=== PATIENT | male | born 1935 | race Caucasian/White ===

== ENCOUNTER → 2016-04-09 | Outpatient (CLI) | payer OTHER ==
[~2016-04-09] MED LIST: AMLO2.5T PO; APIX1TAB PO; ASPCH81 PO; ATOR-24 PO; BROM0.07 OPL; CALC600T9 PO; CHOL100010 PO; COEN100C7 PO; CYAN1LOZ2 PO; FERROUS SULFATE PO; GARL400T4 PO; GLIP-199 PO; MISC1CAP7 PO; MULT-190 PO; MULT-506 PO; POLY335019 PO; PRED1SUS OPL; PREG100C PO; PREG1CAP70 PO; [UNRECOGNIZED DRUG - REMARK] PO; focus factor PO
--- NOTE | 2016-04-09 13:09 | DIAGNOSTIC IMAGING REPORT ---
TWO VIEW CHEST CLINICAL HISTORY: Bronchitis. FINDINGS: PA and lateral chest radiographs are compared to study dated 05/12/2015 and correlated with chest CT dated 01/13/2014. The heart is enlarged and there is atherosclerotic calcification of the thoracic aorta. The pulmonary vasculature is noncongested. Enlargement of the central pulmonary arteries suggests pulmonary artery hypertension. Emphysema and chronic interstitial thickening is similar to previous. Numerous calcified granulomas are again seen, and there are calcified mediastinal and hilar lymph nodes. There is no evidence of superimposed airspace consolidation or pleural effusion. Mild elevation of the right hemidiaphragm is similar to previous. There is no pneumothorax. The skeletal structures are osteopenic. Degenerative change is seen throughout the thoracic spine IMPRESSION: 1. Cardiomegaly and emphysema. There is no acute cardiopulmonary abnormality. 2. There is evidence of remote granulomatous infection, similar to prior examinations. Electronically signed by: Brian Dong M.D. 04/09/2016 1:07 PM Dictated Date/Time: 04/09/2016 1:05 PM
[2016-04-09 13:41] LABS: BASO % 0.2 %; BASO ABS # 0.01 K/uL (0-0.2); COMPLETE YES; EOS % 2.7 %; HEMATOCRIT 42.5 % (42-52); IG% 0.2 %; LYMPH % 17.1 %; LYMPH ABS # 0.95 K/uL (1.2-3.4); MEAN CELL VOLUME 98.6 fL (80-100); MEAN CORPUSCULAR HEMOGLOBIN 33.6 pg (25-34); MEAN CORPUSCULAR HGB CONC 34.1 g/dl (32-36); MEAN PLATELET VOLUME 11.1 fL (7.4-10.4); MONO % 7.9 %; NEUT % 71.9 %; PLATELET COUNT 115 K/uL (130-400); RED BLOOD COUNT 4.31 M/uL (4.7-6.1); WHITE BLOOD COUNT 5.55 K/uL (4.8-10.8)
[2016-04-09 13:48] LABS: BLOOD UREA NITROGEN 32 mg/dl (7-18); BUN/CREATININE RATIO 21.5 (10-20); CALCIUM 8.7 mg/dl (8.5-10.1); CARBON DIOXIDE 25 mmol/L (21-32); CHLORIDE 112 mmol/L (98-107); GLUCOSE 234 mg/dl (70-99); POTASSIUM 4.3 mmol/L (3.5-5.1); SODIUM 144 mmol/L (136-145)
[2016-04-09 14:06] LABS: ESTIMATED AVERAGE GLUCOSE 186 mg/dl; HA1C FLAG Normal (Normal)
--- NOTE | 2016-04-15 09:41 | CODING QUERY MEDICAL NECESSITY ---
SUPPORTING DIAGNOSIS NEEDED A supporting diagnosis is required for the test/procedure performed on this patient in order for us to be reimbursed by the patient's insurance. Please provide a supporting diagnosis for the following test/procedure listed below next to the test name along with your signature. *If there is no additional diagnosis for this patient that would support the following test/procedure please document that below next to the test/procedure. Test(s)/Procedure(s) that require a supporting diagnosis: * GLYCATED HEMOGLOBIN DIAGNOSIS: * DOS: 04/09/16 Provider Signature: Date: Thank you Cintia Dyer [employer] Information Management Once completed, please kindly fax back to [phone] For questions please call [phone]
== END | disposition home or self-care (01) ==
LOC: C.RADBC 11:23
PROVIDERS: ATTEND Internal Medicine Geriatric Medicine
DX: J40 Bronchitis, not specified as acute or chronic (principal); I12.9 Hypertensive chronic kidney disease with stage 1 through stage 4 chronic kidney disease, or unspecified chronic kidney disease; N18.3 Chronic kidney disease, stage 3 (moderate); E11.29 Type 2 diabetes mellitus with other diabetic kidney complication; E11.49 Type 2 diabetes mellitus with other diabetic neurological complication; E11.22 Type 2 diabetes mellitus with diabetic chronic kidney disease

== ENCOUNTER → 2016-06-09 | Day surgery (SDC) | payer OTHER ==
[2016-05-16 13:21] VITALS: Ht 186.7 cm; Wt 88.6 kg
[~2016-06-09] VITALS: Ht 186.7 cm; Wt 88.6 kg
[~2016-06-09] MED LIST changes: +500ML BSS 0.3ML EPI 1:1000PF IRRIG ONE; +ACETAMINOPHEN 325 MG TAB PO PRN; +AMVISC PLUS 0.8ML SYRINGE INT OCU ONE; -ASPCH81 PO; +ATROPINE SULFATE 0.1 MG/ML 5ML SYR IV PRN; +BRIMONIDINE TART 0.2% OP SOLN PER DROP CHARGE ONE; +BSS FLUSH ONE; +ENDOCOAT 0.85ML SYRINGE INT OCU ONE; +EpHEDrine SULFATE INJ 50 MG/ML AMP IV PRN; +EpINEphrine INJ 1MG/ML AMP 1 MG/ML AMP ONE; +LACTATED RINGER'S 1000ML 500 ML IV SCH; +LIDOCAINE 4% OP SOLN DROP CHARGE ONE; +LIDOCAINE 4% OP SOLN DROP CHARGE OPL SCH; +LIDOCAINE HCL 1% MPF 2 ML VIAL ONE; +MIDAZOLAM HCL 1 MG/ML 2ML VIAL ONE; +MOXIFLOXACIN OPH SOLN PER DROP CHARGE ONE; +POVIDONE-IODINE OP SOLN 30 ML BTL ONE; -PREG100C PO; +PROPARACAINE 0.5% OP SOLN PER DROP CHARGE OPL SCH; +TOBRAMYCIN/DEXAMETHASONE OPH OINT PER APPLN CHARGE ONE
[2016-06-09] MEDS: PHENYLEPHRINE HCL 2.5% OP SOLN PER DROP CHARGE OPL SCH ×2 (06:49→06:54)
[2016-06-09] MEDS: TROPICAMIDE 1% OP SOLN PER DROP CHARGE OPL SCH ×2 (06:50→06:55)
[2016-06-09] MEDS: CYCLOPENTOLATE HCL 1% OP SOLN PER DROP CHARGE OPL SCH ×2 (06:51→06:56)
[2016-06-09] MEDS: KETOROLAC 0.5% OP SOLN PER DROP CHARGE OPL SCH ×2 (06:52→06:57)
[2016-06-09] MEDS: MOXIFLOXACIN OPH SOLN PER DROP CHARGE OPL SCH ×2 (06:53→06:58)
--- NOTE | 2016-06-09 06:55 | History & Physical Bridge - [place] ---
H&P Re-Evaluation Bridge Note: I have examined the patient, reviewed the History & Physical and in the interval since the performance of the History & Physical I have noted the following changes of clinical significance: No changes noted
--- NOTE | 2016-06-09 07:30 | Discharge Instructions-SurgCtr ---
Discharge Instructions Date of Service Jun 09, 2016. Visit Reason for Visit: Cataract Left Eye Discharge Discharge Diagnosis / Problem: cataract left eye Discharge Goals Goal(s): Improve function Activity Recommendations Activity Limitations: per Instructions/Follow-up section Lifting Limitations: no more than 5 pounds Anesthesia . Post Anesthesia Instructions: If you have had General Anesthesia or IV Sedation: * Do not drive today. * Resume driving when surgeon permits. * Do not make important decisions or sign legal documents today. * Call surgeon for: 1. Temperature elevations greater than 101 degrees F. 2. Uncontrollable pain. 3. Excessive bleeding. 4. Persistent nausea and vomiting. 5. Medication intolerance (nausea, vomiting or rash). * For nausea and vomiting use only clear liquids such as: tea, soda, bouillon until nausea subsides, then gradually increase diet as tolerated. * If you have any concerns or questions, call your surgeon's office. If physician is unavailable and it is an emergency, call 911 or go to the nearest emergency room. . Instructions / Follow-Up Instructions / Follow-Up ACTIVITY RECOMMENDATIONS: * Light activities * You may walk outside, read, watch television. * Mild irritation and blurred vision are common for the first few days, redness around the white part of the eye is common. MEDICATIONS: Resume previous medications unless instructed otherwise by your surgeon. Eye drops (today and tomorrow): Vigamox - one drop in operative eye every 2 hours while awake Prednisolone 1% - one drop in operative eye every 2 hours while awake Prolensa - one drop operative eye 1 times daily SPECIAL CARE INSTRUCTIONS: * If any problems or concerns, please call Dr. Lopez's office at . * Keep plastic shield taped over eye to sleep at night. * Keep plastic shield taped over eye except to administer eye drops. * Keep plastic shield on until office visit the following day. FOLLOW UP VISIT: Follow-up with Dr. Lopez in the [place] office as scheduled. If not already scheduled, please call the office at . Diet Recommendations Home Diet: resume previous diet Procedures Procedures Performed: Left Cataract Phacoemulsification With Intraocular Lens Implant Pending Studies Studies pending at discharge: no Medical Emergencies . Who to Call and When: Medical Emergencies: If at any time you feel your situation is an emergency, please call 911 immediately. . Non-Emergent Contact Non-Emergency issues call your: Cost Coordinator . . "Provider Documentation" section prepared by Balbir Lopez.
--- NOTE | 2016-06-09 07:30 | [facility] Post Operative Brief Note ---
Immediate Operative Summary Operative Date Jun 09, 2016. Pre-Operative Diagnosis Cataract Left Eye Post-Operative Diagnosis Same Procedure(s) Performed Left Cataract Phacoemulsification With Intraocular Lens Implant Surgeon Dr. Lopez Knife Finisher Surgeon(s) None Estimated Blood Loss 0 Findings cataract left eye Specimens None Complication(s) None Disposition Recovery Room / PACU
--- NOTE | 2016-06-09 07:56 | OPERATIVE REPORT ---
DATE OF OPERATION: 06/09/2016 PREOPERATIVE DIAGNOSIS: Cataract, left eye. POSTOPERATIVE DIAGNOSIS: Cataract, left eye. PROCEDURE: Phacoemulsification cataract extraction with intraocular lens placement, left eye. SURGEON: Dr. Lopez. COMPLICATIONS: None. ESTIMATED BLOOD LOSS: None. ANESTHESIA: Topical with sedation. OPERATION AND FINDINGS: After informed consent was obtained in the holding area the patient was wheeled back to the Operating Room where cardiac monitoring leads and oxygen by nasal cannula was administered by Anesthesia. Gentle IV sedation was given, and the patient's left eye was prepped and draped in usual sterile fashion. A wire lid speculum was placed into the left eye and the operating microscope was swung into position. Using 0.12 forceps and a Supersharp blade a paracentesis port was made 3 o'clock hours away from the 3 o'clock position of patient's left eye. 1% non-preserved Lidocaine was then injected into the anterior chamber for anesthesia. A 2.2 mm keratotome blade was then used to make a shelved clear corneal incision at the 3 o'clock position of his left eye. Amvisc was injected into the anterior chamber and a cystotome and Utrata forceps were used to perform a curvilinear capsulorrhexis. BSS on a hydrodissection cannula was used to hydrodissect the lens nucleus away from the capsular bag. The phacoemulsification handpiece was then used in a stop and chop fashion to remove the lens nucleus. The irrigation and aspiration handpiece was then used to remove the residual cortical material. Amvisc was injected into the capsular bag and anterior chamber and a Bausch \T\ Lomb MX60 19.5 Diopter intraocular lens was injected into the capsular bag. Irrigation and aspiration handpiece was used to remove the residual viscoelastic material. The wounds were hydrated and noted to be watertight. The wire lid speculum was removed from the eye. Vigamox, Brimonidine, and TobraDex ointment were placed on the eye and it was shielded. It should be noted that EndoCoat was used throughout the case to protect the cornea endothelium. It was also noticed by anesthesia during the procedure that the patient had atrial fibrillation which was not listed in his health record. The patient was taken to the post-anesthesia care unit after surgery for an EKG and evaluation. DISPOSITION: The patient tolerated the procedure well and was wheeled to the post anesthesia care unit in stable condition. I attest to the content of the Intraoperative Record and any orders documented therein. Any exceptions are noted below. I attest to the content of the Intraoperative Record and any orders documented therein. Any exceptio ns are noted below.
--- NOTE | 2016-06-09 08:26 | Anesthesia Progress Nt - [facility] ---
Anesthesia Post Op Note Date & Time Jun 09, 2016 at 08:23 Vital Signs Pain Intensity: 0 Vital Signs Past 12 Hours Date Time Temp Pulse Resp B/P Pulse Ox O2 Delivery O2 Flow Rate FiO2 06/09/16 08:19 68 13 06/09/16 08:19 65 13 99 06/09/16 08:15 139/83 06/09/16 08:14 67 10 06/09/16 08:14 73 10 98 06/09/16 08:10 131/80 06/09/16 08:09 70 7 97 06/09/16 08:09 63 7 06/09/16 08:05 136/80 06/09/16 08:04 59 17 98 06/09/16 08:04 65 17 06/09/16 08:01 Room Air 06/09/16 08:00 135/87 06/09/16 07:59 66 20 06/09/16 07:59 64 20 100 06/09/16 07:57 147/94 06/09/16 07:55 138/89 06/09/16 07:54 64 14 100 06/09/16 07:54 59 14 06/09/16 07:50 138/76 06/09/16 07:49 55 13 06/09/16 07:49 60 13 100 06/09/16 07:45 141/84 06/09/16 07:44 65 14 06/09/16 07:44 64 14 100 06/09/16 07:40 140/84 06/09/16 07:39 59 14 06/09/16 07:39 60 14 100 06/09/16 07:35 149/90 06/09/16 07:34 63 16 06/09/16 07:34 69 16 145/90 100 06/09/16 07:30 36.9 67 16 145/90 99 Diffusion Mask 5 06/09/16 06:28 37.0 77 20 160/89 97 Room Air Notes Mental Status: alert / awake / arousable, participated in evaluation Pt Amnestic to Procedure: Yes Nausea / Vomiting: adequately controlled Pain: adequately controlled Airway Patency, RR, SpO2: stable & adequate BP & HR: stable & adequate Hydration State: stable & adequate Anesthetic Complications: no major complications apparent Pt noticed to have an irregular heart rate when put on the monitors in the operating room. It appeared to be atrial fibrillation, which was confirmed on a post-op 12 lead EKG. Pt was stable throughout the momo-operative period. Upon questioning the pt and post-procedure, pt was known to have a h/o atrial fibrillation. It was not documented on the pre-operative anesthesia evaluation or pre-operative phone call. Pt did take his eliquis yesterday. I discussed the matter with the pt and . Pt was otherwise stable for discharge.
[2016-06-09 08:50] VITALS: BP 152/88; PULSE 73; TEMP 36.7; O2SAT 98
== END | disposition home or self-care (01) ==
LOC: X.SURG 06:11
PROVIDERS: ATTEND Ophthalmology
DX: H25.12 Age-related nuclear cataract, left eye (principal); I48.91 Unspecified atrial fibrillation; I10 Essential (primary) hypertension; E11.9 Type 2 diabetes mellitus without complications; E03.9 Hypothyroidism, unspecified; Z85.51 Personal history of malignant neoplasm of bladder; Z87.891 Personal history of nicotine dependence; Z79.899 Other long term (current) drug therapy

== ENCOUNTER → 2016-06-23 | Day surgery (SDC) | payer OTHER ==
[2016-06-20 10:27] VITALS: Ht 186.7 cm; Wt 88.6 kg
[~2016-06-23] VITALS: Ht 186.7 cm; Wt 88.6 kg
[~2016-06-23] MED LIST changes: -LIDOCAINE 4% OP SOLN DROP CHARGE OPL SCH; +LIDOCAINE 4% OP SOLN DROP CHARGE OPR SCH; +ONDANSETRON INJ 2 MG/ML 2 ML VIAL IV PRN; -PROPARACAINE 0.5% OP SOLN PER DROP CHARGE OPL SCH; +PROPARACAINE 0.5% OP SOLN PER DROP CHARGE OPR SCH
[2016-06-23] MEDS: PHENYLEPHRINE HCL 2.5% OP SOLN PER DROP CHARGE OPR SCH ×2 (06:41→06:46)
[2016-06-23] MEDS: TROPICAMIDE 1% OP SOLN PER DROP CHARGE OPR SCH ×2 (06:42→06:47)
[2016-06-23] MEDS: CYCLOPENTOLATE HCL 1% OP SOLN PER DROP CHARGE OPR SCH ×2 (06:43→06:48)
[2016-06-23] MEDS: KETOROLAC 0.5% OP SOLN PER DROP CHARGE OPR SCH ×2 (06:44→06:49)
[2016-06-23] MEDS: MOXIFLOXACIN OPH SOLN PER DROP CHARGE OPR SCH ×2 (06:45→06:55)
--- NOTE | 2016-06-23 07:57 | [facility] Post Operative Brief Note ---
Immediate Operative Summary Operative Date Jun 23, 2016. Pre-Operative Diagnosis Cataract right eye Post-Operative Diagnosis same Procedure(s) Performed Right Cataract Phacoemulsification With Intraocular Lens Implant Surgeon Dr Lopez Sprayer Insecticide Surgeon(s) 0 Estimated Blood Loss 0 Findings cataract right eye Specimens 0 Complication(s) None Disposition Recovery Room / PACU
--- NOTE | 2016-06-23 07:57 | Discharge Instructions-SurgCtr ---
Discharge Instructions Date of Service Jun 23, 2016. Visit Reason for Visit: Cataract Right Eye Discharge Discharge Diagnosis / Problem: cataract right eye Discharge Goals Goal(s): Improve function Activity Recommendations Activity Limitations: per Instructions/Follow-up section Lifting Limitations: no more than 5 pounds Anesthesia . Post Anesthesia Instructions: If you have had General Anesthesia or IV Sedation: * Do not drive today. * Resume driving when surgeon permits. * Do not make important decisions or sign legal documents today. * Call surgeon for: 1. Temperature elevations greater than 101 degrees F. 2. Uncontrollable pain. 3. Excessive bleeding. 4. Persistent nausea and vomiting. 5. Medication intolerance (nausea, vomiting or rash). * For nausea and vomiting use only clear liquids such as: tea, soda, bouillon until nausea subsides, then gradually increase diet as tolerated. * If you have any concerns or questions, call your surgeon's office. If physician is unavailable and it is an emergency, call 911 or go to the nearest emergency room. . Instructions / Follow-Up Instructions / Follow-Up ACTIVITY RECOMMENDATIONS: * Light activities * You may walk outside, read, watch television. * Mild irritation and blurred vision are common for the first few days, redness around the white part of the eye is common. MEDICATIONS: Resume previous medications unless instructed otherwise by your surgeon. Eye drops (today and tomorrow): Vigamox - one drop in operative eye every 2 hours while awake Prednisolone 1% - one drop in operative eye every 2 hours while awake Prolensa - one drop operative eye 1 times daily SPECIAL CARE INSTRUCTIONS: * If any problems or concerns, please call Dr. Lopez's office at . * Keep plastic shield taped over eye to sleep at night. * Keep plastic shield taped over eye except to administer eye drops. * Keep plastic shield on until office visit the following day. FOLLOW UP VISIT: Follow-up with Dr. Lopez in the [place] office as scheduled. If not already scheduled, please call the office at . Diet Recommendations Home Diet: resume previous diet Procedures Procedures Performed: Right Cataract Phacoemulsification With Intraocular Lens Implant Pending Studies Studies pending at discharge: no Medical Emergencies . Who to Call and When: Medical Emergencies: If at any time you feel your situation is an emergency, please call 911 immediately. . Non-Emergent Contact Non-Emergency issues call your: Hospitality Coordinator . . "Provider Documentation" section prepared by Balbir Lopez.
[2016-06-23 08:08] VITALS: TEMP 37.1
[2016-06-23 08:25] VITALS: BP 150/80; PULSE 61; O2SAT 99
--- NOTE | 2016-06-23 08:31 | Anesthesia Progress Nt - [facility] ---
Anesthesia Post Op Note Date & Time Jun 23, 2016 at 08:30 Vital Signs Pain Intensity: 0 Vital Signs Past 12 Hours Date Time Temp Pulse Resp B/P Pulse Ox O2 Delivery O2 Flow Rate FiO2 06/23/16 08:25 61 20 150/80 99 Room Air 06/23/16 08:08 37.1 58 16 143/81 97 Room Air 06/23/16 06:34 36.4 70 16 172/83 97 Room Air Notes Mental Status: alert / awake / arousable, participated in evaluation Pt Amnestic to Procedure: Yes Nausea / Vomiting: adequately controlled Pain: adequately controlled Airway Patency, RR, SpO2: stable & adequate BP & HR: stable & adequate Hydration State: stable & adequate Anesthetic Complications: no major complications apparent
--- NOTE | 2016-06-23 09:01 | OPERATIVE REPORT ---
DATE OF OPERATION: 06/23/2016 PREOPERATIVE DIAGNOSIS: Cataract, right eye. POSTOPERATIVE DIAGNOSIS: Cataract, right eye. PROCEDURE: Phacoemulsification cataract extraction with intraocular lens placement, right eye. SURGEON: Dr. Lopez. COMPLICATIONS: None. ESTIMATED BLOOD LOSS: None. ANESTHESIA: Topical with sedation. DESCRIPTION OF PROCEDURE: After informed consent was obtained in the holding area the patient was wheeled back to the Operating Room where cardiac monitoring leads and oxygen by nasal cannula was administered by Anesthesia. Gentle IV sedation was given, and the patient's right eye was prepped and draped in usual sterile fashion. A wire lid speculum was placed into the right eye and the operating microscope was swung into position. Using 0.12 forceps and a Supersharp blade a paracentesis port was made 3 o'clock hours away from the 9 o'clock position of patient's right eye. 1% non-preserved Lidocaine was then injected into the anterior chamber for anesthesia. A 2.2 mm keratotome blade was then used to make a shelved clear corneal incision at the 9 o'clock position of his right eye. Amvisc was injected into the anterior chamber and a cystotome and Utrata forceps were used to perform a curvilinear capsulorrhexis. BSS on a hydrodissection cannula was used to hydrodissect the lens nucleus away from the capsular bag. The phacoemulsification handpiece was then used in a stop and chop fashion to remove the lens nucleus. The irrigation and aspiration handpiece was then used to remove the residual cortical material. Amvisc was injected into the capsular bag and anterior chamber and a Bausch \T\ Lomb MX60 20.0 Diopter intraocular lens was injected into the capsular bag. Irrigation and aspiration handpiece was used to remove the residual viscoelastic material. The wounds were hydrated and noted to be watertight. The wire lid speculum was removed from the eye. Vigamox, Brimonidine, and TobraDex ointment were placed on the eye and it was shielded. It should be noted that EndoCoat was used during the case to protect the cornea endothelium. DISPOSITION: The patient tolerated the procedure well and was wheeled to the post anesthesia care unit in stable condition. I attest to the content of the Intraoperative Record and any orders documented therein. Any exceptions are noted below. I attest to the content of the Intraoperative Record and any orders documented therein. Any exceptio ns are noted below.
== END | disposition home or self-care (01) ==
LOC: X.SURG 06:06
PROVIDERS: ATTEND Ophthalmology
DX: H25.11 Age-related nuclear cataract, right eye (principal); I10 Essential (primary) hypertension; E11.9 Type 2 diabetes mellitus without complications; Z85.51 Personal history of malignant neoplasm of bladder; Z87.891 Personal history of nicotine dependence

== ENCOUNTER → 2016-09-05 | Outpatient (CLI) | payer OTHER ==
[~2016-09-05] MED LIST changes: -500ML BSS 0.3ML EPI 1:1000PF IRRIG ONE; -ACETAMINOPHEN 325 MG TAB PO PRN; -AMVISC PLUS 0.8ML SYRINGE INT OCU ONE; -ATROPINE SULFATE 0.1 MG/ML 5ML SYR IV PRN; -BRIMONIDINE TART 0.2% OP SOLN PER DROP CHARGE ONE; -BSS FLUSH ONE; -ENDOCOAT 0.85ML SYRINGE INT OCU ONE; -EpHEDrine SULFATE INJ 50 MG/ML AMP IV PRN; -EpINEphrine INJ 1MG/ML AMP 1 MG/ML AMP ONE; -LACTATED RINGER'S 1000ML 500 ML IV SCH; -LIDOCAINE 4% OP SOLN DROP CHARGE ONE; -LIDOCAINE 4% OP SOLN DROP CHARGE OPR SCH; -LIDOCAINE HCL 1% MPF 2 ML VIAL ONE; -MIDAZOLAM HCL 1 MG/ML 2ML VIAL ONE; -MOXIFLOXACIN OPH SOLN PER DROP CHARGE ONE; -ONDANSETRON INJ 2 MG/ML 2 ML VIAL IV PRN; -POVIDONE-IODINE OP SOLN 30 ML BTL ONE; -PROPARACAINE 0.5% OP SOLN PER DROP CHARGE OPR SCH; -TOBRAMYCIN/DEXAMETHASONE OPH OINT PER APPLN CHARGE ONE
[2016-09-05 14:05] LABS: URINE APPEARANCE CLOUDY (CLEAR); URINE BILIRUBIN NEG (NEG); URINE COLOR YELLOW; URINE NITRITE NEG (NEG); URINE SPECIFIC GRAVITY 1.017 (1.000-1.030); UROBILINOGEN NEG (NEG)
[2016-09-05 14:09] LABS: MANUAL MICROSCOPIC REQUIRED? NO; REVIEW REQ? NO
== END | disposition home or self-care (01) ==
LOC: C.LABPBG 10:50
PROVIDERS: ATTEND Urology
DX: N39.0 Urinary tract infection, site not specified (principal)

== ENCOUNTER → 2016-10-07 | Outpatient (CLI) | payer OTHER ==
[2016-10-07 17:41] LABS: BASO % 0.3 %; BASO ABS # 0.02 K/uL (0-0.2); COMPLETE YES; EOS % 2.4 %; HEMATOCRIT 42.6 % (42-52); IG% 0.3 %; LYMPH % 15.9 %; LYMPH ABS # 0.92 K/uL (1.2-3.4); MEAN CELL VOLUME 99.5 fL (80-100); MEAN CORPUSCULAR HEMOGLOBIN 33.6 pg (25-34); MEAN CORPUSCULAR HGB CONC 33.8 g/dl (32-36); MEAN PLATELET VOLUME 10.8 fL (7.4-10.4); MONO % 8.7 %; NEUT % 72.4 %; PLATELET COUNT 114 K/uL (130-400); RED BLOOD COUNT 4.28 M/uL (4.7-6.1); WHITE BLOOD COUNT 5.78 K/uL (4.8-10.8)
[2016-10-07 18:01] LABS: BLOOD UREA NITROGEN 33 mg/dl (7-18); BUN/CREATININE RATIO 23.3 (10-20); CARBON DIOXIDE 24 mmol/L (21-32); CHLORIDE 114 mmol/L (98-107); GLUCOSE 174 mg/dl (70-99); POTASSIUM 3.7 mmol/L (3.5-5.1); SODIUM 144 mmol/L (136-145)
[2016-10-07 18:03] LABS: CHOLESTEROL 114 mg/dl (0-200); CHOLESTEROL/HDL RATIO 2.7; HDL CHOLESTEROL 43 mg/dl; LDL CHOLESTEROL CALCULATED 46 mg/dl; TRIGLYCERIDES 125 mg/dl (0-150); VERY LOW DENSITY LIPOPROT CALC 25 mg/dl
[2016-10-08 06:39] LABS: ESTIMATED AVERAGE GLUCOSE 192 mg/dl; HA1C FLAG Normal (Normal)
--- NOTE | 2016-10-15 06:51 | CODING QUERY MEDICAL NECESSITY ---
SUPPORTING DIAGNOSIS NEEDED A supporting diagnosis is required for the test/procedure performed on this patient in order for us to be reimbursed by the patient's insurance. Please provide a supporting diagnosis for the following test/procedure listed below next to the test name along with your signature. *If there is no additional diagnosis for this patient that would support the following test/procedure please document that below next to the test/procedure. Test(s)/Procedure(s) that require a supporting diagnosis: * VITAMIN B12 DIAGNOSIS: Provider Signature: Date: Thank you Sarah Graham [employer] Information Management Once completed, please kindly fax back to [phone] For questions please call [phone]
== END | disposition home or self-care (01) ==
LOC: C.LABPBG 14:47
PROVIDERS: ATTEND Internal Medicine Geriatric Medicine
DX: N18.3 Chronic kidney disease, stage 3 (moderate) (principal); G62.9 Polyneuropathy, unspecified; I12.9 Hypertensive chronic kidney disease with stage 1 through stage 4 chronic kidney disease, or unspecified chronic kidney disease; E11.29 Type 2 diabetes mellitus with other diabetic kidney complication; E11.22 Type 2 diabetes mellitus with diabetic chronic kidney disease; D64.9 Anemia, unspecified

== ENCOUNTER → 2017-04-21 | Outpatient (CLI) | payer OTHER ==
[2017-04-21 17:46] LABS: BASO % 0.6 %; BASO ABS # 0.04 K/uL (0-0.2); EOS % 2.2 %; EOS ABS # 0.14 K/uL (0-0.5); HEMATOCRIT 42.4 % (42-52); HEMOGLOBIN 14.5 g/dL (14.0-18.0); IG# 0.01 K/uL (0.00-0.02); LYMPH % 15.5 %; LYMPH ABS # 0.98 K/uL (1.2-3.4); MEAN CELL VOLUME 97.9 fL (80-100); MEAN CORPUSCULAR HEMOGLOBIN 33.5 pg (25-34); MEAN CORPUSCULAR HGB CONC 34.2 g/dl (32-36); MEAN PLATELET VOLUME 10.1 fL (7.4-10.4); MONO % 7.4 %; MONO ABS # 0.47 K/uL (0.11-0.59); NEUT % 74.1 %; NEUT ABS # 4.69 K/uL (1.4-6.5); PLATELET COUNT 123 K/uL (130-400); RED CELL DISTRIBUTION WIDTH CV 14.9 % (11.5-14.5); RED CELL DISTRIBUTION WIDTH SD 53.5 fL (36.4-46.3); WHITE BLOOD COUNT 6.33 K/uL (4.8-10.8)
[2017-04-21 18:53] LABS: ALBUMIN 3.9 gm/dl (3.4-5.0); ALT/SGPT 23 U/L (12-78); AST/SGOT 13 U/L (15-37); BLOOD UREA NITROGEN 30 mg/dl (7-18); CALCIUM 8.8 mg/dl (8.5-10.1); CARBON DIOXIDE 24 mmol/L (21-32); CREATININE 1.48 mg/dl (0.60-1.40); GLUCOSE 117 mg/dl (70-99); SODIUM 140 mmol/L (136-145)
[2017-04-21 19:05] LABS: ALKALINE PHOSPHATASE 75 U/L (45-117); TOTAL PROTEIN 7.6 gm/dl (6.4-8.2)
[2017-04-22 06:27] LABS: HEMOGLOBIN A1C 7.3 % (4.5-5.6)
== END | disposition home or self-care (01) ==
LOC: C.LABPBG 14:11
PROVIDERS: ATTEND Internal Medicine Geriatric Medicine
DX: G62.9 Polyneuropathy, unspecified (principal); I12.9 Hypertensive chronic kidney disease with stage 1 through stage 4 chronic kidney disease, or unspecified chronic kidney disease; E78.5 Hyperlipidemia, unspecified; D64.9 Anemia, unspecified; D47.2 Monoclonal gammopathy; I48.2 Chronic atrial fibrillation; N18.3 Chronic kidney disease, stage 3 (moderate)

== ENCOUNTER → 2017-04-27 | Outpatient (CLI) | payer OTHER | END | disposition home or self-care (01) | LOC: C.LABPBG 11:51 | PROVIDERS: ATTEND Internal Medicine Geriatric Medicine | DX: N39.0 Urinary tract infection, site not specified (principal) ==

== ENCOUNTER 2017-10-18 14:58 | Inpatient (IN) | payer OTHER ==
[~2017-10-18] VITALS: Ht 188 cm; Wt 89.5 kg
[2017-10-18] MEDS ORDERED: ALBUT/IPRATROP 3MG/0.5MG NEB 3 ML VIAL INH STA (15:19)
--- NOTE | 2017-10-18 15:21 | EMERGENCY ROOM VISIT NOTE ---
History Report prepared by Jose: Katelyn Ortiz Under the Supervision of: Dr. Lucian Drummond M.D. 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 Positive wet cough with clear discharge, chest pain, chills, rigors. Negative abdominal pain , bilateral leg swelling, recent antibiotic use, recent travel. He reports he has not checked his temperature at home and he has been eating drinking normally. Pt regularly takes Eliquis. 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 Negative bilateral leg swelling, recent antibiotic use, recent travel. Review of Systems See HPI for pertinent positives and negatives. A total of ten systems were reviewed and were otherwise negative. Past Medical & Surgical Medical Problems: (1) Afib (2) Anemia (3) Bladder cancer (4) MGUS (monoclonal gammopathy of unknown significance) (5) PNA (pneumonia) (6) sepsis from urinary source Family History Omitted secondary to age Social History Smoking Status: Never Smoker Marital Status: Occupation Status: retired Current/Historical Medications Scheduled Amlodipine Besylate (Norvasc), 2.5 MG PO QAM Apixaban (Eliquis), 2.5 MG PO BID Atorvastatin (Lipitor), 40 MG PO HS Calcium Carbonate-Vitamin D (Calcium + D), 1 TAB PO QAM Cholecalciferol (Vitamin D3), 1,000 INTER.UNIT PO DAILY Coenzyme Q10 (Ubidecarenone) (Coq10), 100 MG PO QAM Cyanocobalamin (Vitamin B12), 1 TAB PO DAILY Ferrous Sulfate (Ferrous Sulfate), 325 MG PO QAM Garlic (Garlic), 2,000 MG PO DAILY Glipizide (Glipizide ER), 10 MG PO BID Misc Natural Products (Cosamin Asu Advanced Form), 1 CAP PO QAM Multivitamin (Multivitamin), 1 TAB PO QAM Ocuvite Preservision (Ocuvite Preservision), 1 TAB PO QAM Pregabalin (Lyrica), 150 MG PO QAM Sitagliptin Phosphate (Januvia), 50 MG PO DAILY [Focus Factor], 1 DOSE PO QAM [Selenium Prostate], 1 DOSE PO QAM Scheduled PRN Polyethylene Glycol 3350 (Miralax), 17 GM PO DAILY PRN for Constipation Allergies Coded Allergies: No Known Allergies (Unverified , 06/23/16) Physical Exam Vital Signs Date Time Temp Pulse Resp B/P (MAP) Pulse Ox O2 Delivery O2 Flow Rate FiO2 10/18/17 16:36 102 24 163/96 10/18/17 16:15 97 Room Air 10/18/17 16:07 101 10/18/17 15:11 92 Room Air 10/18/17 15:04 37.5 121 24 172/91 92 Room Air Physical Exam GENERAL: Awake, alert, well-appearing, NAD. Wearing glasses. HENT: Normocephalic, atraumatic. EYES: Normal conjunctiva. Sclera non-icteric. PERRL. No anisocoria. NECK: Supple. No nuchal rigidity. FROM. RESPIRATORY: CTAB, no rhonchi, wheezing. Trace crackles. CARDIAC: Tachy and irregular, no MRG ABDOMEN: Soft, NTND, BS+ MSK: No chest wall TTP, no LE edema. No calf pain. NEURO: GCS 15, CN 2-12 intact, moves all 4s on command SKIN: No rash or jaundice noted. Medical Decision & Procedures ER Provider Diagnostic Interpretation: Radiology results as stated below per my review and radiologist interpretation: CHEST ONE VIEW PORTABLE CLINICAL HISTORY: Chest pain. COMPARISON STUDY: Chest radiograph April 09, 2016. FINDINGS: Innumerable upper lobe calcified nodules are unchanged. No pneumothorax or pleural effusion is noted. There is no evidence for pulmonary edema. Moderate cardiomegaly is noted. There is possible mild opacity within the right lung base. IMPRESSION: 1. Possible mild opacity medial right lung base. This is likely artifactual or reflects atelectasis. However, pneumonia could appear similar. Radiographic follow-up is recommended. 2. Moderate cardiomegaly without evidence for pulmonary edema. Electronically signed by: Den Lanza M.D. 10/18/2017 3:43 PM Laboratory Results 10/18/17 16:01 Red Blood Count 4.08, Mean Corpuscular Volume 98.5, Mean Corpuscular Hemoglobin 34.1, Mean Corpuscular Hemoglobin Concent 34.6, Mean Platelet Volume 10.3, Neutrophils (%) (Auto) 90.4, Lymphocytes (%) (Auto) 3.7, Monocytes (%) (Auto) 4.9, Eosinophils (%) (Auto) 0.7, Basophils (%) (Auto) 0.1, Neutrophils # (Auto) 9.69, Lymphocytes # (Auto) 0.40, Monocytes # (Auto) 0.53, Eosinophils # (Auto) 0.07, Basophils # (Auto) 0.01 10/18/17 16:01 Test 10/18/17 16:01 White Blood Count 10.72 K/uL (4.8-10.8) Red Blood Count 4.08 M/uL (4.7-6.1) Hemoglobin 13.9 g/dL (14.0-18.0) Hematocrit 40.2 % (42-52) Mean Corpuscular Volume 98.5 fL (80-100) Mean Corpuscular Hemoglobin 34.1 pg (25-34) Mean Corpuscular Hemoglobin Concent 34.6 g/dl (32-36) Platelet Count 111 K/uL (130-400) Mean Platelet Volume 10.3 fL (7.4-10.4) Neutrophils (%) (Auto) 90.4 % Lymphocytes (%) (Auto) 3.7 % Monocytes (%) (Auto) 4.9 % Eosinophils (%) (Auto) 0.7 % Basophils (%) (Auto) 0.1 % Neutrophils # (Auto) 9.69 K/uL (1.4-6.5) Lymphocytes # (Auto) 0.40 K/uL (1.2-3.4) Monocytes # (Auto) 0.53 K/uL (0.11-0.59) Eosinophils # (Auto) 0.07 K/uL (0-0.5) Basophils # (Auto) 0.01 K/uL (0-0.2) RDW Standard Deviation 50.8 fL (36.4-46.3) RDW Coefficient of Variation 14.4 % (11.5-14.5) Immature Granulocyte % (Auto) 0.2 % Immature Granulocyte # (Auto) 0.02 K/uL (0.00-0.02) Anion Gap 9.0 mmol/L (3-11) Estimated GFR () 49.9 Estimated GFR (Non- 43.1 BUN/Creatinine Ratio 22.0 (10-20) Calcium Level 8.7 mg/dl (8.5-10.1) Magnesium Level 1.9 mg/dl (1.8-2.4) Total Bilirubin 0.6 mg/dl (0.2-1) Direct Bilirubin 0.2 mg/dl (0-0.2) Aspartate Amino Transf (AST/SGOT) 16 U/L (15-37) Alanine Aminotransferase (ALT/SGPT) 25 U/L (12-78) Alkaline Phosphatase 81 U/L (45-117) Total Protein 7.3 gm/dl (6.4-8.2) Albumin 3.7 gm/dl (3.4-5.0) Lipase 231 U/L (73-393) Laboratory results reviewed by me Medications Administered Medications (Trade) Dose Ordered Sig/Arnold Route Start Time Stop Time Status Last Admin Dose Admin Albuterol/ Ipratropium (Duoneb) 3 ml ONE STAT INH 10/18/17 15:19 10/18/17 15:20 DC 10/18/17 15:43 3 ML Benzonatate (Tessalon Perles Cap) 100 mg NOW ONCE PO 10/18/17 15:30 10/18/17 15:31 DC 10/18/17 15:43 100 MG Acetaminophen (Tylenol Tab) 650 mg NOW STAT PO 10/18/17 15:25 10/18/17 15:26 DC 10/18/17 15:43 650 MG Sodium Chloride 1,000 ml @ 500 mls/hr Q2H STAT IV 10/18/17 15:25 10/18/17 17:24 DC 10/18/17 16:24 500 MLS/HR Ceftriaxone Sodium (Rocephin Inj) 1 gm NOW STAT IV 10/18/17 15:59 10/18/17 16:00 DC 10/18/17 16:24 1 GM Azithromycin (Zithromax Tab) 500 mg NOW ONCE PO 10/18/17 16:00 10/18/17 16:01 DC 10/18/17 16:24 500 MG ECG Per My Interpretation Indication: chest pain Rate (beats per minute): 111 Rhythm: atrial fibrillation (with RVR) Findings: PVC (single PVC noted), other (normal axis) ED Course 1514: The patient was evaluated in room A9. A complete history and physical exam was performed. 1657: Discussed the patient's case with Dr. Corbin, [facility] Hospitalist. The patient will be evaluated for further treatment and disposition. 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 Positive wet cough with clear discharge, chills, rigors. Negative chest pain, abdominal pain , bilateral leg swelling, recent antibiotic use, recent travel. Nursing notes reviewed. Ancillary studies and prior records reviewed. Differential diagnosis: Etiologies such as cardiac ischemia, aortic dissection, pulmonary embolism, pneumonia, pneumothorax, musculoskeletal, infections, pericarditis, myocarditis , esophageal rupture, gastrointestinal, as well as others were entertained. Patient was seen and evaluated the bedside. Patient has had persistent flulike symptoms with associated productive cough for slightly greater than 1 week's time. The patient is complained of feeling worse over the last several days. The patient does have a noted history of A. fib and states that he only takes blood thinning medication but nothing for rate control. Patient does have a low -grade temperature at 99 5 oral. The patient does have a very poor sounding cough and crackles in his chest. Patient did have blood work completed with EKG, troponin, chest x-ray. Patient' s chest x-ray shows a questionable right lower lobe opacity. Given the patient' s chronicity of symptoms and cough with associated fever believe he is suitable for treatment with antibiotics. The patient was given Rocephin and azithromycin. Patient's EKG did show A. fib with RVR. I believe this is more dehydration, temperature, and infectious etiology and not so much a problem with the actual rate. Patient was given fluids. Patient does have a normal white blood cell count. Patient does have known CKD. His BUN is elevated. Patient does have a curb 65 score of 2. Given his increased risk as well as his history of A. fib I believe he would benefit from further evaluation and treatment. I did speak with the on-call medicine service who agreed to further evaluate treat the patient. Medication Reconcilliation Current Medication List: was personally reviewed by me Blood Pressure Screening Patient's blood pressure: Elevated blood pressure Consults Time Called: 1650 Consulting Physician: Dr. Corbin, [facility] Hospitalist Returned Call: 1657 Discussed the patient's case with Dr. Corbin [facility] Hospitalist. The patient will be evaluated for further treatment and disposition. Impression Primary Impression: Right lower lobe pneumonia Additional Impressions: Atrial fibrillation with RVR CKD (chronic kidney disease) stage 3, GFR 30-59 ml/min Scribe Attestation The scribe's documentation has been prepared under my direction and personally reviewed by me in its entirety. I confirm that the note above accurately reflects all work, treatment, procedures, and medical decision making performed by me. Departure Information Dispostion Being Evaluated By Hospitalist (Dr. Corbin, [facility] Hospitalist) Referrals Silvino White M.D. (PCP) Patient Instructions My [facility] Problem Qualifiers Primary Impression: Right lower lobe pneumonia Pneumonia type: due to unspecified organism Qualified Codes: J18.1 - Lobar pneumonia, unspecified organism
[2017-10-18] MEDS ORDERED: ACETAMINOPHEN 325 MG TAB PO STA (15:25)
[2017-10-18] MEDS ORDERED: BENZONATATE 100MG CAP PO ONE (15:30)
[2017-10-18] MEDS: SODIUM CHLORIDE 0.9% 1000ML 1,000 ML IV STA ×2 (15:43→16:24)
--- NOTE | 2017-10-18 15:44 | DIAGNOSTIC IMAGING REPORT ---
CHEST ONE VIEW PORTABLE CLINICAL HISTORY: Chest pain. COMPARISON STUDY: Chest radiograph April 09, 2016. FINDINGS: Innumerable upper lobe calcified nodules are unchanged. No pneumothorax or pleural effusion is noted. There is no evidence for pulmonary edema. Moderate cardiomegaly is noted. There is possible mild opacity within the right lung base. IMPRESSION: 1. Possible mild opacity medial right lung base. This is likely artifactual or reflects atelectasis. However, pneumonia could appear similar. Radiographic follow-up is recommended. 2. Moderate cardiomegaly without evidence for pulmonary edema. Electronically signed by: Den Lanza M.D. 10/18/2017 3:43 PM Dictated Date/Time: 10/18/2017 3:40 PM
[2017-10-18] MEDS ORDERED: SITA50TA PO (15:54)
[2017-10-18] MEDS ORDERED: AMLO2.5T PO (15:54)
[2017-10-18] MEDS ORDERED: LPT40 PO (15:54)
[2017-10-18] MEDS ORDERED: GLCSR10 PO (15:54)
[2017-10-18] MEDS ORDERED: [UNRECOGNIZED DRUG - CODE] PO (15:59)
[2017-10-18] MEDS ORDERED: CHOL1000 PO (15:59)
[2017-10-18] MEDS ORDERED: CEFTRIAXONE SOD INJ 1 GM ADDVIAL IV STA (15:59)
[2017-10-18] MEDS ORDERED: AZITHROMYCIN 250 MG TAB PO ONE (16:00)
[2017-10-18] MEDS ORDERED: CYAN100020 PO (16:03)
[2017-10-18] MEDS ORDERED: FERR325T5 PO (16:03)
[2017-10-18] MEDS ORDERED: [UNRECOGNIZED DRUG - OTHER] PO (16:03)
[2017-10-18] MEDS ORDERED: Focus Factor PO (16:03)
[2017-10-18 16:22] LABS: BASO % 0.1 %; BASO ABS # 0.01 K/uL (0-0.2); EOS % 0.7 %; EOS ABS # 0.07 K/uL (0-0.5); HEMATOCRIT 40.2 % (42-52); HEMOGLOBIN 13.9 g/dL (14.0-18.0); IG# 0.02 K/uL (0.00-0.02); LYMPH % 3.7 %; MEAN CELL VOLUME 98.5 fL (80-100); MEAN CORPUSCULAR HEMOGLOBIN 34.1 pg (25-34); MEAN CORPUSCULAR HGB CONC 34.6 g/dl (32-36); MEAN PLATELET VOLUME 10.3 fL (7.4-10.4); MONO % 4.9 %; MONO ABS # 0.53 K/uL (0.11-0.59); NEUT % 90.4 %; NEUT ABS # 9.69 K/uL (1.4-6.5); PLATELET COUNT 111 K/uL (130-400); RED CELL DISTRIBUTION WIDTH CV 14.4 % (11.5-14.5); RED CELL DISTRIBUTION WIDTH SD 50.8 fL (36.4-46.3); WHITE BLOOD COUNT 10.72 K/uL (4.8-10.8)
[2017-10-18 16:45] LABS: ALBUMIN 3.7 gm/dl (3.4-5.0); ALKALINE PHOSPHATASE 81 U/L (45-117); ALT/SGPT 25 U/L (12-78); AST/SGOT 16 U/L (15-37); BLOOD UREA NITROGEN 33 mg/dl (7-18); CALCIUM 8.7 mg/dl (8.5-10.1); CARBON DIOXIDE 20 mmol/L (21-32); CREATININE 1.49 mg/dl (0.60-1.40); GLUCOSE 294 mg/dl (70-99); LIPASE 231 U/L (73-393); POTASSIUM 3.8 mmol/L (3.5-5.1); SODIUM 138 mmol/L (136-145); TOTAL PROTEIN 7.3 gm/dl (6.4-8.2)
[2017-10-18] MEDS ORDERED: GLUCOSE 40% GEL 15 GM TUBE PO PRN (17:30)
[2017-10-18] MEDS ORDERED: MAGNESIUM HYDROXIDE SUSP 30 ML UDC PO PRN (17:30)
[2017-10-18] MEDS ORDERED: ONDANSETRON INJ 2 MG/ML 2 ML VIAL IV PRN (17:30)
[2017-10-18] MEDS ORDERED: ACETAMINOPHEN 325 MG TAB PO PRN (17:30)
[2017-10-18] MEDS ORDERED: POLYETHYLENE (MIRALAX) 17 GM PACK PO PRN (17:30)
[2017-10-18] MEDS ORDERED: GLUCAGON FOR INJ 1 MG VIAL SQ PRN (17:30)
[2017-10-18] MEDS ORDERED: GLUCOSE 10 TABS/TUBE PO PRN (17:30)
[2017-10-18] MEDS ORDERED: CARBOHYDRATES FOR HYPOGLYCEMIA PO PRN (17:30)
[2017-10-18] MEDS ORDERED: DEXTROSE 50% 50 ML SYR IV PRN (17:30)
--- NOTE | 2017-10-18 17:41 | History and Physical ---
History & Physical Date & Time of Service: Oct 18, 2017 at 17:33 Chief Complaint: Shakes,Cough,Chills Primary Care Physician: Silvino White M.D. History of Present Illness Source: patient 82 y/o M c/o cough. Pt states he has had an ongoing cough for about the last 1- 1.5 weeks. It is non-productive in nature. He has not sought care for this prior to today. He was at a family green party and it was noted that his cough was getting worse, so they came to the ED. Pt states he felt hot but had not taken a temp. No one else is sick. Pt denies SOB, chest pain, abd pain, n/v/c/d, LE pain or swelling. He has been eating without issue. Past Medical/Surgical History Medical Problems: (1) Afib (2) Anemia (3) Bladder cancer, s/p bladder removal, not in active tx (4) MGUS (monoclonal gammopathy of unknown significance) Iron deficiency Peripheral neuropathy Hyperlipidemia Family History Family history was reviewed; no changes noted. Neg for ID Social History Smoking Status: Never Smoker Alcohol Use: 1-2 beers per night most nights, no issues on days without alcohol Drug Use: none Marital Status: Housing status: lives with family Occupational Status: retired Immunizations History of Influenza Vaccine: Yes Influenza Vaccine Date: Dec 20, 2009 History of Tetanus Vaccine?: Yes History of Pneumococcal: Yes History of Hepatitis B Vaccine: Unknown Allergies Coded Allergies: No Known Allergies (Unverified , 06/23/16) Home Medications Scheduled Amlodipine Besylate (Norvasc), 2.5 MG PO QAM Apixaban (Eliquis), 2.5 MG PO BID Atorvastatin (Lipitor), 40 MG PO HS Calcium Carbonate-Vitamin D (Calcium + D), 1 TAB PO QAM Cholecalciferol (Vitamin D3), 1,000 INTER.UNIT PO DAILY Coenzyme Q10 (Ubidecarenone) (Coq10), 100 MG PO QAM Cyanocobalamin (Vitamin B12), 1 TAB PO DAILY Ferrous Sulfate (Ferrous Sulfate), 325 MG PO QAM Garlic (Garlic), 2,000 MG PO DAILY Glipizide (Glipizide ER), 10 MG PO BID Misc Natural Products (Cosamin Asu Advanced Form), 1 CAP PO QAM Multivitamin (Multivitamin), 1 TAB PO QAM Ocuvite Preservision (Ocuvite Preservision), 1 TAB PO QAM Pregabalin (Lyrica), 150 MG PO QAM Sitagliptin Phosphate (Januvia), 50 MG PO DAILY [Focus Factor], 1 DOSE PO QAM [Selenium Prostate], 1 DOSE PO QAM Scheduled PRN Polyethylene Glycol 3350 (Miralax), 17 GM PO DAILY PRN for Constipation Review of Systems Pertinent positives and negatives reviewed in HPI--all others negative Physical Exam Vital Signs Date Time Temp Pulse Resp B/P (MAP) Pulse Ox O2 Delivery O2 Flow Rate FiO2 10/18/17 16:36 102 24 163/96 10/18/17 16:15 97 Room Air 10/18/17 16:07 101 10/18/17 15:11 92 Room Air 10/18/17 15:04 37.5 121 24 172/91 92 Room Air General Appearance: WD/WN, no apparent distress Head: normocephalic, atraumatic Eyes: normal inspection, sclerae normal Respiratory/Chest: no respiratory distress, + crackles (R base) Cardiovascular: regular rate, rhythm, no edema Abdomen/GI: non tender, soft Extremities/Musculoskelatal: no calf tenderness, no pedal edema Neurologic/Psych: alert, normal mood/affect, oriented x 3 Skin: normal color, warm/dry Diagnostics Laboratory Results Results Past 24 Hours Test 10/18/17 16:01 Range/Units White Blood Count 10.72 4.8-10.8 K/uL Red Blood Count 4.08 4.7-6.1 M/uL Hemoglobin 13.9 14.0-18.0 g/dL Hematocrit 40.2 42-52 % Mean Corpuscular Volume 98.5 80-100 fL Mean Corpuscular Hemoglobin 34.1 25-34 pg Mean Corpuscular Hemoglobin Concent 34.6 32-36 g/dl Platelet Count 111 130-400 K/uL Mean Platelet Volume 10.3 7.4-10.4 fL Neutrophils (%) (Auto) 90.4 % Lymphocytes (%) (Auto) 3.7 % Monocytes (%) (Auto) 4.9 % Eosinophils (%) (Auto) 0.7 % Basophils (%) (Auto) 0.1 % Neutrophils # (Auto) 9.69 1.4-6.5 K/uL Lymphocytes # (Auto) 0.40 1.2-3.4 K/uL Monocytes # (Auto) 0.53 0.11-0.59 K/uL Eosinophils # (Auto) 0.07 0-0.5 K/uL Basophils # (Auto) 0.01 0-0.2 K/uL RDW Standard Deviation 50.8 36.4-46.3 fL RDW Coefficient of Variation 14.4 11.5-14.5 % Immature Granulocyte % (Auto) 0.2 % Immature Granulocyte # (Auto) 0.02 0.00-0.02 K/uL Sodium Level 138 136-145 mmol/L Potassium Level 3.8 3.5-5.1 mmol/L Chloride Level 109 98-107 mmol/L Carbon Dioxide Level 20 21-32 mmol/L Anion Gap 9.0 3-11 mmol/L Blood Urea Nitrogen 33 7-18 mg/dl Creatinine 1.49 0.60-1.40 mg/dl Estimated GFR () 49.9 Estimated GFR (Non- 43.1 BUN/Creatinine Ratio 22.0 10-20 Random Glucose 294 70-99 mg/dl Calcium Level 8.7 8.5-10.1 mg/dl Magnesium Level 1.9 1.8-2.4 mg/dl Total Bilirubin 0.6 0.2-1 mg/dl Direct Bilirubin 0.2 0-0.2 mg/dl Aspartate Amino Transf (AST/SGOT) 16 15-37 U/L Alanine Aminotransferase (ALT/SGPT) 25 12-78 U/L Alkaline Phosphatase 81 45-117 U/L Total Protein 7.3 6.4-8.2 gm/dl Albumin 3.7 3.4-5.0 gm/dl Lipase 231 73-393 U/L Diagnostic Radiology CXR: RLL PNA EKG Afib, seen prior Impression Assessment and Plan 82 y/o M who was admitted on 10/18 with PNA PNA: noted on CXR CURB score of 2 Rocephin/azithro started in the ED, will continue WBC WNL Monitor Afib: stable, continue home meds Elevated cr: baseline is 1.4-1.6, monitor with gentle IVF DM: BS elevated in the ED, monitor on PO home regimen with SSI PRN A1c 7.3 04/2017, repeat pending Hyperlipidemia: continue home meds Peripheral neuropathy: continue lyrica Bladder ca: s/p bladder removal, no active tx Stoma in place and care as at home Other: Full code although states no prolonged mechanical life support or feeding tubes, is present and agrees Eliquis for DVT proph DM diet Resuscitation Status VTE Prophylaxis Will order VTE Prophylaxis: Yes Additional Copies To Silvino White M.D.
[2017-10-18] MEDS ORDERED: PATIENT'S HEIGHT AND/OR WEIGHT NEEDED SCH (19:30)
[2017-10-18] MEDS ORDERED: SODIUM CHLORIDE 0.9% 1000ML 1,000 ML IV SCH (19:30)
[2017-10-18] MEDS: INSULIN ASPART 100 UNITS/ML 3 ML PEN SC SCH (20:54)
[2017-10-18] MEDS ORDERED: ATORVASTATIN 40 MG TAB PO SCH (21:00)
[2017-10-18] MEDS: APIXABAN 2.5 MG TAB PO SCH (21:06)
[2017-10-18 21:25] VITALS: BP 150/81; PULSE 93; TEMP 37.1; O2SAT 97; Ht 188 cm; Wt 89.5 kg
[2017-10-18 22:42] VITALS: BP 139/76; PULSE 81; TEMP 37.7; O2SAT 95
[2017-10-19 03:43] VITALS: TEMP 36.9
[2017-10-19 05:58] LABS: HEMATOCRIT 36.1 % (42-52); MEAN CELL VOLUME 98.6 fL (80-100); MEAN CORPUSCULAR HEMOGLOBIN 32.8 pg (25-34); MEAN CORPUSCULAR HGB CONC 33.2 g/dl (32-36); MEAN PLATELET VOLUME 10.4 fL (7.4-10.4); PLATELET COUNT 100 K/uL (130-400); RED CELL DISTRIBUTION WIDTH CV 14.8 % (11.5-14.5); RED CELL DISTRIBUTION WIDTH SD 52.4 fL (36.4-46.3); WHITE BLOOD COUNT 10.45 K/uL (4.8-10.8)
[2017-10-19 06:35] LABS: CALCIUM 8.2 mg/dl (8.5-10.1); CREATININE 1.37 mg/dl (0.60-1.40); POTASSIUM 3.6 mmol/L (3.5-5.1)
[2017-10-19 07:19] LABS: HEMOGLOBIN A1C 7.8 % (4.5-5.6)
[2017-10-19 07:38] VITALS: BP 132/76; PULSE 75; TEMP 37; O2SAT 94
[2017-10-19] MEDS ORDERED: FOCUS FACTOR PO SCH (08:00)
[2017-10-19] MEDS ORDERED: CYANOCOBALAMIN 100 MCG TAB (VIT B-12) PO SCH (08:00)
[2017-10-19] MEDS ORDERED: PREGABALIN 150 MG CAP PO SCH (08:00)
[2017-10-19] MEDS ORDERED: NON-FORMULARY MEDICATION (Coenzyme Q10 (Ubidecarenone) (Coq10) 100 MG) PO SCH (08:00)
[2017-10-19] MEDS ORDERED: NATURAL PRODUCTS PO SCH (08:00)
[2017-10-19] MEDS ORDERED: CHOLECALCIFEROL 1000 INTER.UNIT TAB PO SCH (08:00)
[2017-10-19] MEDS ORDERED: GARLIC 2000 MG PO SCH (08:00)
[2017-10-19] MEDS ORDERED: AMLODIPINE BESYLATE 5 MG TAB PO SCH (08:00)
[2017-10-19] MEDS ORDERED: MULTIVITAMIN TAB PO SCH (08:00)
[2017-10-19] MEDS ORDERED: CYANOCOBALAMIN 500 MCG TAB (VIT B-12) PO SCH (08:00)
[2017-10-19] MEDS ORDERED: CEROVITE ADV FORMULA TAB PO SCH (08:00)
[2017-10-19] MEDS ORDERED: SITAGLIPTIN 25 MG TAB PO SCH (08:00)
[2017-10-19] MEDS ORDERED: FERROUS SULFATE 325 MG TAB PO SCH (08:00)
[2017-10-19] MEDS ORDERED: [UNRECOGNIZED DRUG - OTHER] PO SCH (08:00)
[2017-10-19] MEDS ORDERED: CALCIUM 600MG + VIT D 400 IU TAB PO SCH (08:00)
[2017-10-19] MEDS: APIXABAN 2.5 MG TAB PO SCH (08:09)
[2017-10-19] MEDS ORDERED: CEFD300C3 PO (08:13)
[2017-10-19] MEDS ORDERED: AZIT500T26 PO (08:13)
--- NOTE | 2017-10-19 08:16 | Discharge Instructions ---
Discharge Instructions Date of Service Oct 19, 2017. Admission Reason for Admission: PNA Discharge Discharge Diagnosis / Problem: community acquired pneumonia Discharge Goals Goal(s): Improve function, Improve disease control, Diagnostic testing (repeat CXR in 6 weeks) Activity Recommendations Activity Limitations: resume your previous activity . Instructions / Follow-Up Instructions / Follow-Up Medications: - ZITHROMAX: 500mg tablet daily x 4 more days - CEFDINIR: 300mg capsule twice a day x 4 more days Community Acquired Pneumonia evidence of infiltrate in the right lower lobe on CXR, coupled with cough and low grade temperature will treat with antibiotics for a total of 5 days follow up in one week with Dr. White should get a repeat CXR in 6 weeks Current Hospital Diet Patient's current hospital diet: Diabetes Type 2 Diet Discharge Diet Recommended Diet: Diabetes Type 2 Diet Pending Studies Studies pending at discharge: no Laboratory Results Hemoglobin A1c Test 10/19/17 05:28 Range/Units Estimated Average Glucose 177 mg/dl Hemoglobin A1c 7.8 H 4.5-5.6 % Medical Emergencies . Who to Call and When: Medical Emergencies: If at any time you feel your situation is an emergency, please call 911 immediately. . Non-Emergent Contact Non-Emergency issues call your: Primary Care Provider Call Non-Emergent contact if: you have a fever, you have any medication questions if cough getting worse, if you are feeling worse instead of getting better . . "Provider Documentation" section prepared by Ted Barbosa. . [place] Drug Monitoring Program Search Results: no issues identified
[2017-10-19] MEDS: INSULIN ASPART 100 UNITS/ML 3 ML PEN SC SCH (08:29)
[2017-10-19] MEDS ORDERED: AZITHROMYCIN IV 500 MG in DEXTROSE 5% 250ML 250 ML IV SCH (09:00)
[2017-10-19 11:22] VITALS: BP 132/76; PULSE 75; TEMP 37; O2SAT 94
--- NOTE | 2017-10-19 11:41 | Discharge Summary ---
Discharge Summary Date of Service Oct 19, 2017. Discharge Summary Admission Date: Oct 18, 2017 at 17:33 Discharge Date: Oct 19, 2017 Discharge Disposition: Home Principal Diagnosis: Community acquired pneumonia Problems/Secondary Diagnoses: Mild TRAVIS Chronic atrial fibrillation Dyslipidemia Neuropathy, peripheral Immunizations: Have You Had Influenza Vaccine: Yes Influenza Vaccine Date: Dec 20, 2009 History of Tetanus Vaccine?: Yes History of Pneumococcal: Yes History of Hepatitis B Vaccine: Unknown Procedures: none Consultations: none Medication Reconciliation New Medications: Azithromycin (Zithromax) 500 Mg Tab 500 MG PO DAILY, #4 TAB Cefdinir (Cefdinir) 300 Mg Cap 300 MG PO Q12 for 4 Days, #8 CAP 0 Refills Continued Medications: Amlodipine Besylate (Norvasc) 2.5 Mg Tab 2.5 MG PO QAM Apixaban (Eliquis) 2.5 Mg Tab 2.5 MG PO BID, TAB Atorvastatin (Lipitor) 40 Mg Tab 40 MG PO HS Calcium Carbonate-Vitamin D (Calcium + D) 1 Tab Tab 1 TAB PO QAM Cholecalciferol (Vitamin D3) 1,000 Unit Tab 1000 INTER.UNIT PO DAILY, TAB Coenzyme Q10 (Ubidecarenone) (Coq10) 100 Mg Cap 100 MG PO QAM Cyanocobalamin (Vitamin B12) Unknown Strength Tab 1 TAB PO DAILY Ferrous Sulfate (Ferrous Sulfate) 325 Mg Tab 325 MG PO QAM Garlic (Garlic) 2,000 Mg Tab 2000 MG PO DAILY Glipizide (Glipizide ER) 10 Mg Tabcr 10 MG PO BID Misc Natural Products (Cosamin Asu Advanced Form) 1 Cap Cap 1 CAP PO QAM Multivitamin (Multivitamin) Tab 1 TAB PO QAM Ocuvite Preservision (Ocuvite Preservision) 1 Tab Tab 1 TAB PO QAM, TAB Polyethylene Glycol 3350 (Miralax) 1 Pow Pow 17 GM PO DAILY PRN for Constipation, GM Pregabalin (Lyrica) 150 Mg Cap 150 MG PO QAM, CAP Sitagliptin Phosphate (Januvia) 50 Mg Tab 50 MG PO DAILY [Focus Factor] () 1 DOSE PO QAM [Selenium Prostate] () 1 DOSE PO QAM Discharge Exam Patient says he is feeling a lot better, coughing less, not as productive, no fever/chills Review of Systems: Constitutional: No fever, No chills, No sweats, No weight loss, No weakness , No fatigue, No problem reported Eyes: No worsening of vision, No eye pain, No redness, No discharge, No diplopia, No problem reported ENT: No hearing loss, No unusual epistaxis, No nasal symptoms, No sore throat, No tinnitus, No dental problems, No trouble swallowing, No problem reported Respiratory: + cough, + sputum, No wheezing, No shortness of breath, No dyspnea on exertion, No dyspnea at rest Cardiovascular: No chest pain, No orthopnea, No PND, No edema, No claudication, No palpitations, No problem reported Abdomen: No pain, No nausea, No vomiting, No diarrhea, No constipation, No GI bleeding, No problem reported Musculoskeletal: No joint pain, No muscle pain, No swelling, No calf pain, No problem reported Genitourinary - Male: No hematuria, No dysuria, No urinary frequency, No urinary urgency Neurologic: No memory loss, No paralysis, No weakness, No numbness/tingling , No vertigo, No balance problems, No problem reported Psychiatric: No depression symptoms, No anhedonism, No anxiety, No insomnia , No substance abuse, No problem reported Endocrine: No fatigue, No excessive thirst, No excessive urination, No problem reported Hematologic / Lymphatic: No abnormal bleeding/bruising, No clotting problems , No swollen lymph nodes, No night sweats, No problem reported Integumentary: No rash, No itch, No new/changing skin lesions, No color change, No bleeding, No problem reported Physical Exam: General Appearance: WD/WN, no apparent distress Eyes: normal inspection, EOMI, sclerae normal ENT: normal ENT inspection, hearing grossly normal, pharynx normal Neck: supple, no adenopathy, no JVD, trachea midline Respiratory/Chest: chest non-tender, normal breath sounds, no respiratory distress, no accessory muscle use, + crackles (right base) Cardiovascular: no edema, no gallop, no JVD, no murmur, normal peripheral pulses, + irregularly irregular Abdomen / GI: normal bowel sounds, non tender, soft, no organomegaly Extremities: normal inspection, no calf tenderness, normal capillary refill , no pedal edema, normal range of motion, pelvis stable Neurologic/Psychiatric: bilingual sales consultant II-XII nml as tested, no motor/sensory deficits , alert, normal mood/affect, normal reflexes, oriented x 3 Skin: normal color, warm/dry, no rash Hospital Course 82 y/o M who was admitted on 10/18 with PNA - Community acquired pneumonia CXR shows right lower lobe infiltrate, he has had productive cough for 1.5 weeks treated with Rocephin and Zithromax patient feels a lot better today, coughing less, not as productive no fever/chills, WBC is 10k, Cr improved to 1.3 will d/c home on Zithromax and Cefdinir x 4 days follow up with Dr. White recommend repeating a CXR in 6 weeks time Afib: heart rate stable, continue anticoagulation with Eliquis Mild TRAVIS: Cr improved to 1.37 with some gentle IV fluids, UO adequate, TRAVIS resolved DM: BS elevated in the ED, resolved with novolog SS while admitted A1c 7.3 04/2017 Hyperlipidemia: continue home meds Peripheral neuropathy: continue lyrica Bladder ca: s/p bladder removal, no active tx Stoma in place and care as at home disposition: to home Total Time Spent: Greater than 30 minutes This includes examination of the patient, discharge planning, medication reconciliation, and communication with other providers. Discharge Instructions Please refer to the electronic Patient Visit Report (Discharge Instructions) for additional information. Follow-Up Dr. White in one week Additional Copies To Silvino White M.D.
[2017-10-19] MEDS ORDERED: CEFTRIAXONE SOD INJ 1 GM in DEXTROSE 5% ADD-VANTAGE 50ML 50 ML IV SCH (16:00)
== END 2017-10-19 13:10 | disposition home or self-care (01) | DRG 194 ==
LOC: C.EDB 14:59 → C.4E 17:33 → ENRESERV 17:39 → EDBEDREQSVC 18:40 → EDBEDREQ 18:40 → EDBEDREQSVC 18:41
PROVIDERS: ADMIT Family Medicine; ATTEND Internal Medicine
DX: J18.9 Pneumonia, unspecified organism (principal); N17.9 Acute kidney failure, unspecified; N18.3 Chronic kidney disease, stage 3 (moderate); I48.91 Unspecified atrial fibrillation; Z85.51 Personal history of malignant neoplasm of bladder; D47.2 Monoclonal gammopathy; D64.9 Anemia, unspecified; E11.40 Type 2 diabetes mellitus with diabetic neuropathy, unspecified; Z93.6 Other artificial openings of urinary tract status; I48.2 Chronic atrial fibrillation

== ENCOUNTER 2020-09-18 08:41 | Inpatient (IN) ==
[2020-09-18] MEDS ORDERED: SODIUM CHLORIDE 0.9% 500 ML IV ONE (09:12)
[2020-09-18] MEDS ORDERED: ALBUT/IPRATROP 3MG/0.5MG NEB 3 ML VIAL NEB STA (09:12)
[2020-09-18] MEDS ORDERED: BENZONATATE 100 MG CAPSULE PO ONE (09:12)
[2020-09-18 09:26] LABS: Basophils # (auto) 0.01 K/uL (0-0.2); Basophils % (auto) 0.1 %; Eosinophils # (auto) 0.07 K/uL (0-0.5); Eosinophils % (auto) 0.6 %; Hemoglobin 7.4 g/dL (14.0-18.0); Immature Granulocytes # (auto) 0.02 K/uL (0.00-0.02); Immature Granulocytes % (auto) 0.2 %; Lymphocytes # (auto) 0.66 K/uL (1.2-3.4); Lymphocytes % (auto) 5.9 %; Mean Corpuscular Hgb Conc 30.8 g/dL (32-36); Mean Corpuscular Volume 87.6 fL (80-100); Mean Platelet Volume 9.5 fL (7.4-10.4); Monocytes # (auto) 0.64 K/uL (0.11-0.59); Monocytes % (auto) 5.7 %; Neutrophils # (auto) 9.88 K/uL (1.4-6.5); Neutrophils % (auto) 87.5 %; Platelet Count 241 K/uL (130-400); RDW Coefficient of Variation 16.3 % (11.5-14.5); RDW Standard Deviation 52.8 fL (36.4-46.3); Red Blood Count 2.74 M/uL (4.7-6.1); White Blood Count 11.28 K/uL (4.8-10.8)
[2020-09-18 09:34] LABS: INR 1.1 (0.9-1.1); Prothrombin Time 10.7 Seconds (9.0-12.0)
[2020-09-18 09:45] LABS: Tear Drop Cells 1+
[2020-09-18 09:52] LABS: Alanine Aminotransferase 19 U/L (12-78); Albumin Globulin Ratio 0.7 (0.9-2); Albumin Level 2.9 gm/dl (3.4-5.0); Alkaline Phosphatase 76 U/L (45-117); Aspartate Aminotransferase 8 U/L (15-37); BUN Creatinine Ratio 27.6 (10-20); Bilirubin,Total 0.3 mg/dl (0.2-1); Blood Urea Nitrogen 48 mg/dl (7-18); Calcium 8.5 mg/dl (8.5-10.1); Carbon Dioxide 19 mmol/L (21-32); Chloride 108 mmol/L (98-107); Creatinine Clr Calc Pharmacy 35.9 ml/min; Est GFR (African American) 41.1 ml/min; Est GFR (Non-African American) 35.5 ml/min; Globulin 3.9 gm/dl (2.5-4.0); Glucose 400 mg/dl (70-99); Magnesium 2.2 mg/dl (1.8-2.4); NT Pro B Type Natriuretic Pept 1463 pg/ml (0-1800); Potassium 4.9 mmol/L (3.5-5.1); Sodium 135 mmol/L (136-145); Total Protein 6.8 gm/dl (6.4-8.2); Troponin I < 0.015 ng/ml (0-0.045)
[2020-09-18 10:00] LABS: Procalcitonin 0.45 ng/ml (0-0.5)
--- NOTE | 2020-09-18 10:02 | Emergency Department Note ---
History of Present Illness General Chief complaint: Cough Stated complaint: COUGH,WEAKNESS IN KNEE Time Seen by Provider: 09/18/20 09:02 Source: patient Mode of arrival: ambulatory Limitations: no limitations History of Present Illness Provider complaint: cough x1.5 weeks, right knee weakness x1 day This 84-year-old male patient presents to the emergency department today for evaluation of cough x1.5 weeks and right knee weakness which he noticed today. Patient reports history of chronic right knee pain, but this morning while getting off of the toilet, he was having difficulty pushing himself up on the right knee due to it feeling weak. He denies associated pain at this time. He states he has been coughing for 1 and half weeks. Denies associated fever. He states he feels that he needs to cough up sputum, but has been unable. Patient denies hemoptysis. No abdominal pain, nausea, vomiting. No chest pain or dyspnea. No diarrhea or constipation. Patient denies numbness, tingling, headache, dizziness, or other concerning symptoms. Home Medications Medication Instructions Recorded Confirmed Type acetaminophen 500 mg tablet 500 mg PO QAM tab 08/19/18 09/18/20 History cholecalciferol (vitamin D3) 25 1,000 units PO QAM cap 10/19/18 09/18/20 History mcg (1,000 unit) capsule coenzyme Q10 100 mg capsule 100 mg PO QAM #30 cap 10/19/18 09/18/20 History jjazwwei-ihm-eoruhp 5 mg-zeaxanth 1 cap PO QAM cap 10/19/18 09/18/20 History 1 mg-bilberry 7.5 mg-herbal capsule polyethylene glycol 3350 17 17 g PO HS gm 10/19/18 09/18/20 History gram/dose oral powder cyanocobalamin (vitamin B-12) 100 0 mcg PO QAM tab 10/25/19 09/18/20 History mcg tablet garlic 1,000 mg capsule 1,000 mg PO QAM cap 10/25/19 09/18/20 History apixaban 2.5 mg tablet 2.5 mg PO BID #180 tab 01/11/20 09/18/20 Rx lancets #100 ea 03/21/20 05/30/20 Rx blood sugar diagnostic See Rx Instructions .ROUTE 04/13/20 05/30/20 Rx .COMPLEX #100 strip adhesive remover #240 ml 05/04/21 Rx drainage bag 2,000 mL #6 ea 07/10/20 Rx miscellaneous medical supply See Rx Instructions .ROUTE 07/10/20 Rx .COMPLEX #1 ea miscellaneous medical supply See Rx Instructions .ROUTE 07/10/20 Rx .COMPLEX #30 ea miscellaneous medical supply See Rx Instructions .ROUTE 07/10/20 Rx .COMPLEX #50 ea ostomy supplies #20 ea 07/10/20 Rx ostomy supplies 1 3/4" #60 ea 07/10/20 Rx amlodipine [Norvasc] 5 mg PO QAM 09/18/20 09/18/20 History atorvastatin [Lipitor] 40 mg PO QAM 09/18/20 09/18/20 History fexofenadine [Ally Allergy] 180 mg PO DAILY PRN 09/18/20 09/18/20 History glipizide [Glucotrol XL] 10 mg PO QAM 09/18/20 09/18/20 History glucos sul [id number] 1 cap PO QAM 09/18/20 09/18/20 History [Glucosamine Chondroitin] guaifenesin [Mucinex] 1,200 mg PO BID 09/18/20 09/18/20 History lisinopril [Zestril] 10 mg PO QAM 09/18/20 09/18/20 History psyllium [Metamucil] 1 packet PO QAM 09/18/20 09/18/20 History Allergies Allergy/AdvReac Type Severity Reaction Status Date / Time No Known Drug Allergies Allergy Verified 09/18/20 11:03 Past Med/Surg History Medical History Allergic rhinitis AMD (age related macular degeneration) Anemia Chronic osteoarthritis Diabetes mellitus with kidney complication Dyslipidemia Hypertension MGUS (monoclonal gammopathy of unknown significance) Osteopenia Peripheral neuropathy Permanent atrial fibrillation Premature ventricular contractions Proteinuria 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 Stage III chronic kidney disease Thrombocytopenia Urothelial carcinoma of bladder May 2010 Venous insufficiency Vitamin D deficiency Surgical History History of total cystectomy Family History Father Myocardial infarction Denies family history of Ovarian cancer Prostate cancer Breast cancer Colorectal cancer Social History Smoking Status: Former smoker Age Started Using Tobacco: 16; Age Quit Using Tobacco: 22; Second Hand Exposure: No; Hx Alcohol Use: Yes Alcohol type: beer Hx Substance Use: No Preferred Language: Hungarian Communication Ability: Effective Visual Impairment: Limited Hearing Ability: Hard of Hearing 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 Beliefs That Will Affect Care: None marital status: Current Living Situation: Spouse current occupational status: retired How many Children do You have: 3 Feels Safe at Home: Yes Childhood Exposure to Second-Hand Smoke: Yes caffeine: No during the past year weight has: remained stable Dental Care, Regularly: Yes Physical Activity Frequency: 1-2 Times per Week Seatbelt Use: always Sunscreen Use: Yes Review of Systems A total of 10 systems reviewed and were otherwise negative Physical Exam Vital Signs Vital Signs - 24 hr 09/18/20 08:42 09/18/20 09:27 09/18/20 10:00 Temperature 37.2 C Temperature Source Temporal Artery Scan Pulse Rate 57 L 89 Pulse Rate [Right Finger] 93 H Pulse Rate from SpO2 Sensor 100 H Respiratory Rate 18 18 23 Respiratory Effort / Characteristics Non-Labored Spontaneous Blood Pressure 106/52 L 123/61 Blood Pressure Mean 70 81 Blood Pressure Position Sitting Pulse Oximetry 95 96 96 Oxygen Delivery Method Room Air Room Air Sepsis Recent Fever Within 48 Hours No Sepsis New/Unexplained Change in Mental Status No Sepsis Action Taken by Nursing No Action Required 09/18/20 10:30 09/18/20 11:42 09/18/20 12:00 Temperature Temperature Source Pulse Rate 94 H 99 H Pulse Rate [Right Finger] Pulse Rate from SpO2 Sensor 90 Respiratory Rate 25 H 20 Respiratory Effort / Characteristics Blood Pressure 128/63 138/73 Blood Pressure Mean 84 94 Blood Pressure Position Pulse Oximetry 96 96 96 Oxygen Delivery Method Room Air Room Air Sepsis Recent Fever Within 48 Hours Sepsis New/Unexplained Change in Mental Status Sepsis Action Taken by Nursing 09/18/20 12:30 09/18/20 13:00 09/18/20 13:30 Temperature Temperature Source Pulse Rate 84 85 94 H Pulse Rate [Right Finger] Pulse Rate from SpO2 Sensor 87 89 Respiratory Rate 20 20 20 Respiratory Effort / Characteristics Blood Pressure 117/68 129/59 L 127/76 Blood Pressure Mean 84 82 93 Blood Pressure Position Pulse Oximetry 98 99 98 Oxygen Delivery Method Room Air Room Air Room Air Sepsis Recent Fever Within 48 Hours Sepsis New/Unexplained Change in Mental Status Sepsis Action Taken by Nursing 09/18/20 14:00 09/18/20 15:47 Temperature 36.6 C Temperature Source Oral Pulse Rate 81 85 Pulse Rate [Right Finger] Pulse Rate from SpO2 Sensor 81 Respiratory Rate 16 15 Respiratory Effort / Characteristics Blood Pressure 125/60 133/65 Blood Pressure Mean 81 87 Blood Pressure Position Pulse Oximetry 97 97 Oxygen Delivery Method Room Air Sepsis Recent Fever Within 48 Hours Sepsis New/Unexplained Change in Mental Status Sepsis Action Taken by Nursing VITALS: Vitals are noted on the nurse's note and reviewed by myself. Vital signs stable. GENERAL: This is an 84-year-old white male, in no acute distress, non diaphoretic, well-developed well-nourished. SKIN: The skin was without rashes, erythema, edema, or bruising. There is no tenting of the skin. Capillary refill less than 2 seconds. HEAD: Normocephalic atraumatic. EARS: External auditory canals clear, tympanic membranes pearly marie without erythema or effusion bilaterally. EYES: Conjunctivae without injection, sclerae without icterus. NOSE: Patent, turbinates without inflammation or discharge. No sinus tenderness. MOUTH: Mucous membranes moist. NECK: Supple without nuchal rigidity. No lymphadenopathy. Cervical spine is nontender. No JVD. HEART: Regular rate and rhythm without murmurs gallops or rubs. LUNGS: Clear to auscultation bilaterally without wheezes, rales or rhonchi. No retractions or accessory muscle use. ABDOMEN: Urostomy right side of abdomen. Positive bowel sounds x 4. Soft, nontender, without masses or organomegaly. No guarding or rebound tenderness. RECTAL - No rectal fissures. Diffuse external hemorrhoids noted. No active hemorrhage. A sterile, water-soluble lubricant was applied to the examiner's finger prior to internal exam. No rectal vault tenderness. No rectal masses. No fecal impaction. Stool was grossly heme positive. PSYCH - A&Ox3 and cooperates fully with examiner. Pt is very pleasant and intera cts well with examiner. MUSCULOSKELETAL: No muscle atrophy, erythema, or edema noted. Full range of motion without joint tenderness in all extremities. No tenderness to palpation. Normal gait. Strength 5/5 throughout. NEURO: Patient was alert and oriented to person place and time. No focal neur ological deficits. Course Course The patient was seen and evaluated as above. An order was placed for continuous cardiac monitoring. The monitor shows a normal sinus rhythm at a rate of 81 bpm. IV access obtained, labs drawn. Imaging performed and reviewed by myself and radiologist as noted. Labs reviewed by myself. Patient medicated with IV insulin. I discussed the findings with the patient at bedside. Rectal examination completed I discussed the case with my attending. I discussed the case with the administrative assistant office manager. I discussed the case with Dr. Douglas, [facility] hospitalist physician. He did agree to see and evaluate the patient for admission. I did receive a phone call from the ED pharmacist in charge owner regarding repeat hemoglobin of 6.9. I discussed this finding with Dr. Douglas who asked if we could consent the patient and start blood transfusion. This was completed. Please see hospitalist dictation regarding ongoing management care of this patient. Administered Medications Sodium Chloride (Nss 1000ml) 1,000 mls @ 100 mls/hr IV .Q10H BERE Stop: 10/18/20 13:59 Last Admin: 09/18/20 15:10 Dose: 100 mls/hr Documented by: [id number] Discontinued Medications Albuterol (Albut/Ipratrop 3mg/0.5mg Neb 3 Ml Vial) 3 ml NEB NOW STA Stop: 09/18/20 09:13 Last Admin: 09/18/20 09:27 Dose: 3 ml Documented by: [id number] Benzonatate (Benzonatate 100 Mg Capsule) 200 mg PO NOW ONE Stop: 09/18/20 09:13 Last Admin: 09/18/20 09:38 Dose: 200 mg Documented by: [id number] Sodium Chloride (Nss) 500 mls @ 999 mls/hr IV .Q31M ONE Stop: 09/18/20 09:42 Last Infusion: 09/18/20 10:07 Dose: 0 mls/hr Documented by: [id number] Admin: 09/18/20 09:37 Dose: 999 mls/hr Documented by: [id number] Pantoprazole Sodium 40 mg/ (Syringe) 10 mls @ 5 mls/min IV ONE STA Stop: 09/18/20 14:15 Last Admin: 09/18/20 15:10 Dose: 5 mls/min Documented by: [id number] Insulin Human Regular (Novolin-R Insulin Per Unit Charge) 8 units IV NOW STA Stop: 09/18/20 12:18 Last Admin: 09/18/20 12:52 Dose: 8 units Documented by: [id number] Cosigned by: [id number] Critical Care Time Critical Care Time: Yes Total Critical Care Time: 35 I have personally spent greater than 35 minutes of critical care time in the direct management of this patient to assess and manage acute anemia and GI bleed as well as transfuse blood. This includes bedside care, interpretation of diagnostic studies, and testing, discussion with consultants, patient, and family members, documentation time, and other required patient management acti vities. This 35 minutes is in excess of all separately billable procedures. Medical Decision Making Differential Diagnosis Viral syndrome, pneumonia, COVID-19, influenza, meningitis, urinary tract infection, sepsis, bacteremia, cardiac etiology, as well as other pathologies. Medical Records Attestation: I reviewed the patient's medical records. Home Medications Current Medication List: was personally reviewed by me Laboratory Data Attestation: I reviewed the patient's lab results. Mild leukocytosis of 11.28. Anemia with hemoglobin of 7.4 noted. No thrombocytopenia. INR 1.1. Blood glucose elevated at 400. Creatinine elevated 1.73. Electrolytes, hepatic function without significant abnormality. BNP 1400. Troponin negative. Lyme disease negative. Procalcitonin 0.45. COVID-19 testing negative. Lactic acid 2.1. Repeat hemoglobin 6.9. Result diagrams: 09/18/20 14:26 09/18/20 09:12 Lab Results 09/18/20 09/18/20 09/18/20 Range/Units 09:12 09:12 09:12 WBC 11.28 H (4.8-10.8) K/uL RBC 2.74 L (4.7-6.1) M/uL Hgb 7.4 L (14.0-18.0) g/dL Hct 24.0 L (42-52) % MCV 87.6 (80-100) fL MCH 27.0 (25-34) pg MCHC 30.8 L (32-36) g/dL RDW Std Deviation 52.8 H (36.4-46.3) fL RDW Coeff of Tasneem 16.3 H (11.5-14.5) % Plt Count 241 (130-400) K/uL MPV 9.5 (7.4-10.4) fL Immature Gran % (Auto) 0.2 % Neut % (Auto) 87.5 % Lymph % (Auto) 5.9 % [place] % (Auto) 5.7 % Eos % (Auto) 0.6 % Baso % (Auto) 0.1 % Neut # (Auto) 9.88 H (1.4-6.5) K/uL Lymph # (Auto) 0.66 L (1.2-3.4) K/uL [place] # (Auto) 0.64 H (0.11-0.59) K/uL Eos # (Auto) 0.07 (0-0.5) K/uL Baso # (Auto) 0.01 (0-0.2) K/uL Immature Gran # (Auto) 0.02 (0.00-0.02) K/uL Tear Drop Cells 1+ PT 10.7 (9.0-12.0) Seconds INR 1.1 (0.9-1.1) Sodium 135 L (136-145) mmol/L Potassium 4.9 (3.5-5.1) mmol/L Chloride 108 H (98-107) mmol/L Carbon Dioxide 19 L (21-32) mmol/L Anion Gap 8.0 (3-11) BUN 48 H (7-18) mg/dl Creatinine 1.73 H (0.6-1.4) mg/dl Est Cr Clr Drug Dosing 35.9 ml/min Est GFR ( Amer) 41.1 ml/min Est GFR (Non-Af Amer) 35.5 ml/min BUN/Creatinine Ratio 27.6 H (10-20) Glucose 400 H* (70-99) mg/dl POC Glucose (70-99) mg/dl Lactate (0.4-2.0) mmol/L Calcium 8.5 (8.5-10.1) mg/dl Magnesium 2.2 (1.8-2.4) mg/dl Total Bilirubin 0.3 (0.2-1) mg/dl AST 8 L (15-37) U/L ALT 19 (12-78) U/L Alkaline Phosphatase 76 (45-117) U/L Troponin I < 0.015 (0-0.045) ng/ml NT-Pro-B Natriuret Pep 1463 (0-1800) pg/ml Total Protein 6.8 (6.4-8.2) gm/dl Albumin 2.9 L (3.4-5.0) gm/dl Globulin 3.9 (2.5-4.0) gm/dl Albumin/Globulin Ratio 0.7 L (0.9-2) Beta-Hydroxybutyric Acd 1.62 (0.2-2.81) mg/dl Procalcitonin (0-0.5) ng/ml Lyme Disease IgG Ab (Negative) Lyme Disease IgM Ab (Negative) COVID-19 Eval Order SARS-CoV-2 (PCR) (Negative) Blood Type Antibody Screen Crossmatch 09/18/20 09/18/20 09/18/20 Range/Units 09:12 09:27 09:27 WBC (4.8-10.8) K/uL RBC (4.7-6.1) M/uL Hgb (14.0-18.0) g/dL Hct (42-52) % MCV (80-100) fL MCH (25-34) pg MCHC (32-36) g/dL RDW Std Deviation (36.4-46.3) fL RDW Coeff of Tasneem (11.5-14.5) % Plt Count (130-400) K/uL MPV (7.4-10.4) fL Immature Gran % (Auto) % Neut % (Auto) % Lymph % (Auto) % [place] % (Auto) % Eos % (Auto) % Baso % (Auto) % Neut # (Auto) (1.4-6.5) K/uL Lymph # (Auto) (1.2-3.4) K/uL [place] # (Auto) (0.11-0.59) K/uL Eos # (Auto) (0-0.5) K/uL Baso # (Auto) (0-0.2) K/uL Immature Gran # (Auto) (0.00-0.02) K/uL Tear Drop Cells PT (9.0-12.0) Seconds INR (0.9-1.1) Sodium (136-145) mmol/L Potassium (3.5-5.1) mmol/L Chloride (98-107) mmol/L Carbon Dioxide (21-32) mmol/L Anion Gap (3-11) BUN (7-18) mg/dl Creatinine (0.6-1.4) mg/dl Est Cr Clr Drug Dosing ml/min Est GFR ( Amer) ml/min Est GFR (Non-Af Amer) ml/min BUN/Creatinine Ratio (10-20) Glucose (70-99) mg/dl POC Glucose (70-99) mg/dl Lactate (0.4-2.0) mmol/L Calcium (8.5-10.1) mg/dl Magnesium (1.8-2.4) mg/dl Total Bilirubin (0.2-1) mg/dl AST (15-37) U/L ALT (12-78) U/L Alkaline Phosphatase (45-117) U/L Troponin I (0-0.045) ng/ml NT-Pro-B Natriuret Pep (0-1800) pg/ml Total Protein (6.4-8.2) gm/dl Albumin (3.4-5.0) gm/dl Globulin (2.5-4.0) gm/dl Albumin/Globulin Ratio (0.9-2) Beta-Hydroxybutyric Acd (0.2-2.81) mg/dl Procalcitonin 0.45 (0-0.5) ng/ml Lyme Disease IgG Ab Negative (Negative) Lyme Disease IgM Ab Negative (Negative) COVID-19 Eval Order Covid19 at [facility] SARS-CoV-2 (PCR) NEGATIVE (Negative) Blood Type Antibody Screen Crossmatch 09/18/20 09/18/20 09/18/20 Range/Units 09:48 11:39 12:13 WBC (4.8-10.8) K/uL RBC (4.7-6.1) M/uL Hgb (14.0-18.0) g/dL Hct (42-52) % MCV (80-100) fL MCH (25-34) pg MCHC (32-36) g/dL RDW Std Deviation (36.4-46.3) fL RDW Coeff of Tasneem (11.5-14.5) % Plt Count (130-400) K/uL MPV (7.4-10.4) fL Immature Gran % (Auto) % Neut % (Auto) % Lymph % (Auto) % [place] % (Auto) % Eos % (Auto) % Baso % (Auto) % Neut # (Auto) (1.4-6.5) K/uL Lymph # (Auto) (1.2-3.4) K/uL [place] # (Auto) (0.11-0.59) K/uL Eos # (Auto) (0-0.5) K/uL Baso # (Auto) (0-0.2) K/uL Immature Gran # (Auto) (0.00-0.02) K/uL Tear Drop Cells PT (9.0-12.0) Seconds INR (0.9-1.1) Sodium (136-145) mmol/L Potassium (3.5-5.1) mmol/L Chloride (98-107) mmol/L Carbon Dioxide (21-32) mmol/L Anion Gap (3-11) BUN (7-18) mg/dl Creatinine (0.6-1.4) mg/dl Est Cr Clr Drug Dosing ml/min Est GFR ( Amer) ml/min Est GFR (Non-Af Amer) ml/min BUN/Creatinine Ratio (10-20) Glucose (70-99) mg/dl POC Glucose (70-99) mg/dl Lactate 2.1 H* 2.1 H* (0.4-2.0) mmol/L Calcium (8.5-10.1) mg/dl Magnesium (1.8-2.4) mg/dl Total Bilirubin (0.2-1) mg/dl AST (15-37) U/L ALT (12-78) U/L Alkaline Phosphatase (45-117) U/L Troponin I (0-0.045) ng/ml NT-Pro-B Natriuret Pep (0-1800) pg/ml Total Protein (6.4-8.2) gm/dl Albumin (3.4-5.0) gm/dl Globulin (2.5-4.0) gm/dl Albumin/Globulin Ratio (0.9-2) Beta-Hydroxybutyric Acd (0.2-2.81) mg/dl Procalcitonin (0-0.5) ng/ml Lyme Disease IgG Ab (Negative) Lyme Disease IgM Ab (Negative) COVID-19 Eval Order SARS-CoV-2 (PCR) (Negative) Blood Type A Negative Antibody Screen NEGATIVE Crossmatch See Detail 09/18/20 09/18/20 09/18/20 Range/Units 13:27 14:26 15:15 WBC (4.8-10.8) K/uL RBC (4.7-6.1) M/uL Hgb 6.9 L* (14.0-18.0) g/dL Hct 21.7 L (42-52) % MCV (80-100) fL MCH (25-34) pg MCHC (32-36) g/dL RDW Std Deviation (36.4-46.3) fL RDW Coeff of Tasneem (11.5-14.5) % Plt Count (130-400) K/uL MPV (7.4-10.4) fL Immature Gran % (Auto) % Neut % (Auto) % Lymph % (Auto) % [place] % (Auto) % Eos % (Auto) % Baso % (Auto) % Neut # (Auto) (1.4-6.5) K/uL Lymph # (Auto) (1.2-3.4) K/uL [place] # (Auto) (0.11-0.59) K/uL Eos # (Auto) (0-0.5) K/uL Baso # (Auto) (0-0.2) K/uL Immature Gran # (Auto) (0.00-0.02) K/uL Tear Drop Cells PT (9.0-12.0) Seconds INR (0.9-1.1) Sodium (136-145) mmol/L Potassium (3.5-5.1) mmol/L Chloride (98-107) mmol/L Carbon Dioxide (21-32) mmol/L Anion Gap (3-11) BUN (7-18) mg/dl Creatinine (0.6-1.4) mg/dl Est Cr Clr Drug Dosing ml/min Est GFR ( Amer) ml/min Est GFR (Non-Af Amer) ml/min BUN/Creatinine Ratio (10-20) Glucose (70-99) mg/dl POC Glucose 214 H 126 H (70-99) mg/dl Lactate (0.4-2.0) mmol/L Calcium (8.5-10.1) mg/dl Magnesium (1.8-2.4) mg/dl Total Bilirubin (0.2-1) mg/dl AST (15-37) U/L ALT (12-78) U/L Alkaline Phosphatase (45-117) U/L Troponin I (0-0.045) ng/ml NT-Pro-B Natriuret Pep (0-1800) pg/ml Total Protein (6.4-8.2) gm/dl Albumin (3.4-5.0) gm/dl Globulin (2.5-4.0) gm/dl Albumin/Globulin Ratio (0.9-2) Beta-Hydroxybutyric Acd (0.2-2.81) mg/dl Procalcitonin (0-0.5) ng/ml Lyme Disease IgG Ab (Negative) Lyme Disease IgM Ab (Negative) COVID-19 Eval Order SARS-CoV-2 (PCR) (Negative) Blood Type Antibody Screen Crossmatch Imaging Data Radiologist's Impression: Chest X-Ray 09/18/20 09:14 XR chest 2V PA/lateral HISTORY: cough COMPARISON: Chest 10/18/2017. FINDINGS: No pneumothorax. No pleural effusions. The lungs remain hyperexpanded. The cardiac silhouette is mildly enlarged. No new focal lung consolidations to suggest pneumonia. No evidence for pulmonary edema. Extensive calcific granulomas are again seen throughout the lungs. This is similar to the prior study. IMPRESSION: 1. No new focal lung consolidations to suggest pneumonia. 2. Innumerable calcified granulomas are again noted throughout the lungs. ACT 112: Negative or not required by law. Electronically signed by: Armando Carpenter M.D. 09/18/2020 11:21 AM ECG Data Attestation: I personally reviewed and interpreted this ECG as follows: Indication: + weakness Rate (beats per minute): 96 Rhythm: + sinus rhythm ECG Intervals/blocks: + First degree AV block ECG [place]: + Normal ECG ST segments: no ST depression, no ST elevation and no T-wave inversions ECG Findings: + PVCs and + Bigeminy Comparison ECG Date: from (sinus with AV block and bigeminy has replaced Atrial fibrillation with RVR) Blood Pressure Blood Pressure Findings: Normal blood pressure MDM Narrative This 84-year-old male patient presents to the emergency department today for evaluation of cough and right knee weakness which began this morning. Patient is afebrile. Lactic acid was elevated at 2.1. The patient was found to be anemic with a hemoglobin of 7.4 initially, repeat hemoglobin 6.9. Chest x-ray without evidence of pneumonia. No other clear evidence of infection. Rectal examination completed due to the anemia heme positive. Patient is on Eliquis for atrial fibrillation. Work-up here most consistent with GI bleed. Given repeat hemoglobin of 6.9, we did elect to start blood. This was started while in the emergency department. Please see hospitalist dictation regarding ongoing management care of this patient. The chart was completed utilizing [employer] Speech voice recognition software. Grammatical errors, random word insertions, pronoun errors, and incomplete sentences are an occasional consequence of this system due to software limitations, ambient noise, and hardware issues. Any formal questions or concerns about the content, text, or information contained within the body of this dictation should be directly addressed to the provider for clarification. Impression & Plan Anemia, Cough, Acute pain of right knee, Acute GI bleeding Discharge Plan Visit Data Chief Complaint: Cough Stated Complaint: COUGH,WEAKNESS IN KNEE ED Provider: Miguel A Rivera ED Midlevel Provider: Irma Orosco Discharge Problem: Anemia, Cough, Acute pain of right knee, Acute GI bleeding Patient Disposition: Admitted As Inpatient Forms Stand Alone Forms: [facility], Virtual Emergency Department, Important Visit Information Prescriptions Prescriptions: No Action Eliquis 2.5 mg tablet 2.5 mg PO BID Qty: 180 RF: 1 (DME) lancets [OneTouch UltraSoft Lancets] Misc See Dose Instructions .ROUTE .MEDSUPPLY Qty: 100 RF: 3 blood sugar diagnostic [OneTouch Ultra Blue Test Strip] Strip See Rx Instructions .ROUTE .COMPLEX Qty: 100 RF: 1 (DME) drainage bag 2,000 mL misc See Rx Instructions .ROUTE .MEDSUPPLY Qty: 6 RF: 1 miscellaneous medical supply Misc See Rx Instructions .ROUTE .COMPLEX Qty: 1 RF: 1 miscellaneous medical supply Misc See Rx Instructions .ROUTE .COMPLEX Qty: 30 RF: 1 miscellaneous medical supply Misc See Rx Instructions .ROUTE .COMPLEX Qty: 50 RF: 1 (DME) Kami Cohesive Seals Misc See Rx Instructions .ROUTE .MEDSUPPLY Qty: 20 RF: 1 (DME) Carmen-Fit Natura Urostomy Pouch 1 3/4 " misc See Rx Instructions .ROUTE .MEDSUPPLY Qty: 60 RF: 1 (DME) adhesive remover [Uni-Solve Adhesive Remover] Liquid See Rx Instructions .ROUTE .MEDSUPPLY Qty: 240 RF: 1 acetaminophen [Acetaminophen Extra Strength] 500 mg tablet 500 mg PO QAM RF: 0 cholecalciferol (vitamin D3) [Vitamin D3] 1,000 unit capsule 1,000 units PO QAM RF: 0 polyethylene glycol 3350 [Miralax] 17 gram/dose powder 17 g PO HS RF: 0 Macular Health Formula 5-1-7.5 mg capsule 1 cap PO QAM RF: 0 coenzyme Q10 [Co Q-10] 100 mg capsule 100 mg PO QAM Qty: 30 RF: 0 cyanocobalamin (vitamin B-12) [Vitamin B-12] 100 mcg tablet 0 mcg PO QAM RF: 0 garlic [garlic oil] 1,000 mg capsule 1,000 mg PO QAM RF: 0 Metamucil Packet 1 packet PO QAM RF: 0 fexofenadine [Ally Allergy] 180 mg Tablet 180 mg PO DAILY PRN (Reason: Allergy Symptoms) RF: 0 Mucinex 1,200 mg Tablet Extended Release 12hr 1,200 mg PO BID RF: 0 Glucosamine Chondroitin 550-30-1 mg Capsule 1 cap PO QAM RF: 0 atorvastatin [Lipitor] 40 mg tablet 40 mg PO QAM RF: 0 glipizide [Glucotrol XL] 10 mg tablet extended release 24hr 10 mg PO QAM RF: 0 amlodipine [Norvasc] 5 mg tablet 5 mg PO QAM RF: 0 lisinopril [Zestril] 10 mg tablet 10 mg PO QAM RF: 0 Referrals Referrals: Carlito Caro CRNP [Primary Care Provider] - Discharge Problem: Anemia Qualifiers: Anemia type: unspecified type Qualified Code(s): D64.9 - Anemia, unspecified
[2020-09-18 10:03] LABS: Beta-Hydroxybutyrate 1.62 mg/dl (0.2-2.81)
[2020-09-18 10:07] LABS: Lyme Ab IgG w/WB Rflx Negative (Negative); Lyme Ab IgM w/WB Rflx Negative (Negative)
--- NOTE | 2020-09-18 11:22 | XRay Report ---
XR chest 2V PA/lateral HISTORY: cough COMPARISON: Chest 10/18/2017. FINDINGS: No pneumothorax. No pleural effusions. The lungs remain hyperexpanded. The cardiac silhouet te is mildly enlarged. No new focal lung consolidations to suggest pneumonia. No evidence for pulmona ry edema. Extensive calcific granulomas are again seen throughout the lungs. This is similar to the p rior study. IMPRESSION: 1. No new focal lung consolidations to suggest pneumonia. 2. Innumerable calcified granulomas are again noted throughout the lungs. ACT 112: Negative or not required by law. Electronically signed by: Armando Carpenter M.D. 09/18/2020 11:21 AM
[2020-09-18] MEDS ORDERED: SODIUM CHLORIDE 0.9% 250 ML IV PRN ×2 (12:07→14:56)
[2020-09-18] MEDS ORDERED: NovoLIN-R INSULIN PER UNIT CHARGE IV STA (12:17)
--- NOTE | 2020-09-18 12:26 | Emergency Department Note ---
ED Visit Note The patient was seen and examined with Irma Orosco PA-C. I agree with the history, physical and findings. Please see the note for disposition and d etails. Patient's presentation was with a cough. His blood work revealed a moderate anemia which is worse than prior. Rectal examination on his physical revealed gross blood. This is concerning for GI bleed. The patient is anticoagulated. Further management in the hospital will be necessary. .
--- NOTE | 2020-09-18 13:42 | History & Physical Report ---
Date of Service September 18, 2020 Assessment & Plan (1) Acute GI bleeding: Dark red blood, does not appear to be melena. rechecked hemoglobin. as it was below 7, will transfuse. will consult GI. will place NPO, PPI BID IV (2) Cough: SUBACUTE FOR 7 DAYS will monitor. (3) Acute pain of right knee: this appears to be a chronic problem, will montior (4) Urothelial carcinoma of bladder: urostomy on right flak. (5) Dyslipidemia: will resume home meds once able to take oral (6) Hypertension: will hold due to anemia (7) Permanent atrial fibrillation: will hold anticoagulation (8) Thrombocytopenia: history of above problem, will monitor History of Present Illness Primary Care Provider: CALLUM [place] 84 yo male who comes in with a subacute 3 week history of a cough, and having his right knee buckle while ghetting up frokm the bathroom. Patient denies nay other symptoms. Patient when he came in the ER, was found to be anemic, and having elevated lactic acidosis, TRAVIS. Patient is on apixaban. On exam, patient was found to have dark red stool. Allergies Allergy/AdvReac Type Severity Reaction Status Date / Time No Known Drug Allergies Allergy Verified 09/18/20 11:03 Home Medications Medication Instructions Recorded Confirmed Type acetaminophen 500 mg tablet 500 mg PO QAM tab 08/19/18 09/18/20 History cholecalciferol (vitamin D3) 25 1,000 units PO QAM cap 10/19/18 09/18/20 History mcg (1,000 unit) capsule coenzyme Q10 100 mg capsule 100 mg PO QAM #30 cap 10/19/18 09/18/20 History pzikfjxr-lhr-bpvotr 5 mg-zeaxanth 1 cap PO QAM cap 10/19/18 09/18/20 History 1 mg-bilberry 7.5 mg-herbal capsule polyethylene glycol 3350 17 17 g PO HS gm 10/19/18 09/18/20 History gram/dose oral powder cyanocobalamin (vitamin B-12) 100 0 mcg PO QAM tab 10/25/19 09/18/20 History mcg tablet garlic 1,000 mg capsule 1,000 mg PO QAM cap 10/25/19 09/18/20 History apixaban 2.5 mg tablet 2.5 mg PO BID #180 tab 01/11/20 09/18/20 Rx lancets #100 ea 03/21/20 05/30/20 Rx blood sugar diagnostic See Rx Instructions .ROUTE 04/13/20 05/30/20 Rx .COMPLEX #100 strip adhesive remover #240 ml 07/10/20 Rx drainage bag 2,000 mL #6 ea 07/10/20 Rx miscellaneous medical supply See Rx Instructions .ROUTE 07/10/20 Rx .COMPLEX #1 ea miscellaneous medical supply See Rx Instructions .ROUTE 07/10/20 Rx .COMPLEX #30 ea miscellaneous medical supply See Rx Instructions .ROUTE 07/10/20 Rx .COMPLEX #50 ea ostomy supplies #20 ea 07/10/20 Rx ostomy supplies 1 3/4" #60 ea 07/10/20 Rx amlodipine [Norvasc] 5 mg PO QAM 09/18/20 09/18/20 History atorvastatin [Lipitor] 40 mg PO QAM 09/18/20 09/18/20 History fexofenadine [Ally Allergy] 180 mg PO DAILY PRN 09/18/20 09/18/20 History glipizide [Glucotrol XL] 10 mg PO QAM 09/18/20 09/18/20 History glucos sul [id number]-C-Mn 1 cap PO QAM 09/18/20 09/18/20 History [Glucosamine Chondroitin] guaifenesin [Mucinex] 1,200 mg PO BID 09/18/20 09/18/20 History lisinopril [Zestril] 10 mg PO QAM 09/18/20 09/18/20 History psyllium [Metamucil] 1 packet PO QAM 09/18/20 09/18/20 History Past Med/Surg History Medical History Allergic rhinitis AMD (age related macular degeneration) Anemia Chronic osteoarthritis Diabetes mellitus with kidney complication Dyslipidemia Hypertension MGUS (monoclonal gammopathy of unknown significance) Osteopenia Peripheral neuropathy Permanent atrial fibrillation Premature ventricular contractions Proteinuria 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 Stage III chronic kidney disease Thrombocytopenia Urothelial carcinoma of bladder May 2010 Venous insufficiency Vitamin D deficiency Surgical History History of total cystectomy May 2010 Family History Father Myocardial infarction Denies family history of Ovarian cancer Prostate cancer Breast cancer Colorectal cancer Social History Smoking Status: Former smoker Age Started Using Tobacco: 16; Age Quit Using Tobacco: 22; Second Hand Exposure: No; Hx Alcohol Use: Yes Alcohol type: beer Hx Substance Use: No Preferred Language: Martiniquais Communication Ability: Effective Visual Impairment: Limited Hearing Ability: Hard of Hearing Pharmacist Manager Required: No Beliefs That Will Affect Care: None marital status: Current Living Situation: Spouse current occupational status: retired How many Children do You have: 3 Other Information That Helps Us Care for You: No Feels Safe at Home: Yes Safety Concerns: Feels Safe At This Time Childhood Exposure to Second-Hand Smoke: Yes caffeine: No during the past year weight has: remained stable Dental Care, Regularly: Yes Physical Activity Frequency: 1-2 Times per Week Seatbelt Use: always Sunscreen Use: Yes Assistive Devices: Glasses Assistive Devices Comment: urostomy Review of Systems Eyes: no diplopia Ear, Nose, Mouth, Throat: no ear pain Respiratory: + cough Cardiovascular: no chest pain Gastrointestinal: no abdominal pain Genitourinary: no dysuria Musculoskeletal: no radicular pain Integumentary: no rash Neurologic: no falls Psychiatric: no anhedonia Endocrine: no polydipsia Hematologic / Lymphatic: no easy bleeding Physical Exam Constitutional: WD/WN, vitals as above Eyes: PERRL, conjunctivae normal, anicteric sclerae ENMT: external ear and nose normal, oropharynx normal Neck: trachea midline, no thyromegaly Respiratory: normal respiratory effort, lungs clear to auscultation Cardiovascular: RRR, no murmur, no edema Gastrointestinal (Abdomen): normal bowel sounds, soft, nontender, no hepatosplenomegaly (right urostomy with bag) Skin: no rashes, warm and dry Neurologic: PERRL, EOMI, accommodation nl, no face palsy, no dysarthria Lymphatic: no cervical or axillary lymphadenopathy Results & Data Results & Data ([facility]) Vital Signs (Past 12 Hours) Vital Signs Temp Pulse Pulse Resp BP Pulse Ox 09/18/20 12:30 84 20 117/68 98 09/18/20 12:00 99 H 20 138/73 96 09/18/20 11:42 96 09/18/20 10:30 94 H 25 H 128/63 96 09/18/20 10:00 89 23 123/61 96 09/18/20 09:27 93 H 18 96 09/18/20 08:42 37.2 C 57 L 18 106/52 L 95 PG Care Time/CCT Total # of Minutes Spent Total Time Spent with Patient: Total time spent is greater than 50% in coordination of care (as documented) at patient's floor/unit and/or counseling patient: Coding Level of Care Code 55424 Initial Inpt Care Lvl 3 Diagnoses Acute GI bleeding K92.2 Cough R05 Acute pain of right knee M25.561 Urothelial carcinoma of bladder C67.9 Dyslipidemia E78.5 Hypertension I10 Permanent atrial fibrillation I48.2 Thrombocytopenia D69.6 Time Spent (min) 55
[2020-09-18] MEDS ORDERED: ONDANSETRON INJ 2 MG/ML 2 ML VIAL IV PRN (13:57)
[2020-09-18] MEDS ORDERED: ACETAMINOPHEN 325 MG TAB PO PRN (13:57)
[2020-09-18] MEDS ORDERED: PANTOprazole 40 MG in SYRINGE 0 ML IV STA (14:14)
[2020-09-18 14:51] LABS: Hematocrit (blood only) 21.7 % (42-52); Hemoglobin 6.9 g/dL (14.0-18.0)
[2020-09-18] MEDS: SODIUM CHLORIDE 0.9% 1000ML 1,000 ML IV SCH (15:10)
--- NOTE | 2020-09-18 18:30 | Electrocardiogram Report ---
Test Reason : Blood Pressure : / mmHG Vent. Rate : 096 BPM Atrial Rate : 096 BPM P-R Int : 228 ms QRS Dur : 096 ms QT Int : 356 ms P-R-T Axes : 074 053 020 degrees QTc Int : 449 ms Sinus rhythm with 1st degree A-V block with frequent Premature ventricular complexes in a pattern of bigeminy Otherwise normal ECG When compared with ECG of 18-OCT-2017 15:38, Sinus rhythm has replaced Atrial fibrillation Confirmed by Torey Hughes ([id number]) on 09/18/2020 6:29:59 PM Referred By: REFERRED SELF Confirmed By:Lance Hughes
[2020-09-18 18:55] LABS: Appearance Urine Clear (Clear); Bacteria Urine Automated 1+ (Negative); Bilirubin Urine Negative (Negative); Blood Urine Negative (Negative); Color Urine Yellow; Epithelial Cell Urine Auto >30 /lpf (0-5); Glucose Urine UA Negative (Negative); Ketones Urine Negative (Negative); Leukocyte Esterase Urine Trace (Negative); Nitrite Urine Positive (Negative); Protein Urine Negative (Negative); Specific Gravity Urine 1.009 (1.000-1.030); Urobilinogen Urine Negative (Negative); pH Urine 6.5 (4.5-7.5)
[2020-09-18 19:08] LABS: RBC Urine Automated 0-4 /hpf (0-4)
[2020-09-18] MEDS: PANTOprazole 40 MG in SYRINGE 0 ML IV SCH (20:56)
[2020-09-18] MEDS: BENZONATATE 100 MG CAPSULE PO PRN (22:43)
[2020-09-18 23:15] LABS: Hematocrit (blood only) 25.8 % (42-52)
[2020-09-19] MEDS: SODIUM CHLORIDE 0.9% 1000ML 1,000 ML IV SCH (04:45)
[2020-09-19] MEDS ORDERED: LEVALBUTEROL HCL 0.63 MG/3 ML NEB NEB PRN (05:17)
[2020-09-19 08:08] LABS: Hematocrit (blood only) 25.9 % (42-52); Hemoglobin 8.2 g/dL (14.0-18.0); Mean Corpuscular Hemoglobin 27.2 pg (25-34); Mean Corpuscular Hgb Conc 31.7 g/dL (32-36); Mean Platelet Volume 9.1 fL (7.4-10.4); Platelet Count 197 K/uL (130-400); RDW Coefficient of Variation 16.2 % (11.5-14.5); RDW Standard Deviation 51.2 fL (36.4-46.3); Red Blood Count 3.01 M/uL (4.7-6.1); White Blood Count 7.25 K/uL (4.8-10.8)
[2020-09-19 08:36] LABS: BUN Creatinine Ratio 22.7 (10-20); Calcium 8.1 mg/dl (8.5-10.1); Creatinine Clr Calc Pharmacy 51.4 ml/min; Est GFR (African American) 63.3 ml/min; Est GFR (Non-African American) 54.6 ml/min; Potassium 4.2 mmol/L (3.5-5.1)
[2020-09-19] MEDS: ATORVASTATIN 40 MG TAB PO SCH (08:56)
[2020-09-19] MEDS: PANTOprazole 40 MG in SYRINGE 0 ML IV SCH ×2 (08:56→20:17)
[2020-09-19] MEDS: guaiFENesin 600 MG TABCR PO SCH ×2 (08:56→20:17)
--- NOTE | 2020-09-19 11:44 | Gastrointestinal Consultation ---
Date of Consultation September 19, 2020 Assessment & Plan (1) Anemia: Discussed EGD & colonoscopy for further evaluation of anemia. Patient does report he has not seen any obvious GI bleeding, though it is documented that he had dark red stools. At present, he is not sure he wishes to proceed with endoscopic evaluation given his cough. He would like to discuss further with his and see how he feels throughout the day in regards to the cough. If there are no other interventions/tests planned for today, I have no GI objection to advancing him to a clear liquid diet for today. If he chooses to undergo endoscopic evaluation tomorrow, GI would need to be notified in order to order scopes and bowel prep. Thank you for allowing us to participate in the care of this patient. If you should have any further questions or concerns, do not hesitate to contact us at extension [phone] or [phone]. Supervising Physician Co-Signing Physician Notes Agree with JACK Jennings as above Abd: Soft, NT, ND, +BS No overt GI bleeding per patient and nursing staff Patient and would like him to undergo EGD/Colonoscopy for further evaluation of anemia Clear liquid diet Bowel prep tonight NPO after bowel prep EGD and Colonoscopy Tomorrow History of Present Illness Reason for Consultation: Anemia Attending Physician: Raphael Douglas History of Present Illness Patient is an 84 yo male with a PMH of MGUS, bladder cancer, CKD3, permanent at ria fibrillation, DM2, osteoarthritis, HLD, peripheral neuropathy, macular degeneration who presented to the ED for a 3 week history of a cough. In the ED, he was noted to have anemia. H/H is presently 8.2/25.9. Per provider documentation, it appears that the blood was dark red, however patient denies seeing blood. He denies any heartburn, reflux, abdominal pain, or melena, hematochezia, hematemesis, or changes in his bowel habits recently. Other than his cough, which he feels is improving, he denies further issues. He does take Eliquis at home. Allergies Allergy/AdvReac Type Severity Reaction Status Date / Time No Known Drug Allergies Allergy Verified 09/18/20 11:03 Home Medications Medication Instructions Recorded Confirmed Type acetaminophen 500 mg tablet 500 mg PO QAM tab 08/19/18 09/18/20 History (Acetaminophen Extra Strength) cholecalciferol (vitamin D3) 25 1,000 units PO QAM cap 10/19/18 09/18/20 History mcg (1,000 unit) capsule (Vitamin D3) coenzyme Q10 100 mg capsule (Co 100 mg PO QAM #30 cap 10/19/18 09/18/20 History Q-10) hrabwntf-kvo-mtnzxa 5 mg-zeaxanth 1 cap PO QAM cap 10/19/18 09/18/20 History 1 mg-bilberry 7.5 mg-herbal capsule ([employer] Formula) polyethylene glycol 3350 17 17 g PO HS gm 10/19/18 09/18/20 History gram/dose oral powder (Miralax) cyanocobalamin (vitamin B-12) 100 0 mcg PO QAM tab 10/25/19 09/18/20 History mcg tablet (Vitamin B-12) garlic 1,000 mg capsule (garlic 1,000 mg PO QAM cap 10/25/19 09/18/20 History oil) apixaban 2.5 mg tablet (Eliquis) 2.5 mg PO BID #180 tab 01/11/20 09/18/20 Rx lancets (OneTouch UltraSoft #100 ea 03/21/20 05/30/20 Rx Lancets) blood sugar diagnostic (OneTouch See Rx Instructions .ROUTE 04/13/20 05/30/20 Rx Ultra Blue Test Strip) .COMPLEX #100 strip adhesive remover (Uni-Solve #240 ml 07/10/20 Rx Adhesive Remover) drainage bag 2,000 mL #6 ea 07/10/20 Rx miscellaneous medical supply See Rx Instructions .ROUTE 07/10/20 Rx .COMPLEX #1 ea miscellaneous medical supply See Rx Instructions .ROUTE 07/10/20 Rx .COMPLEX #30 ea miscellaneous medical supply See Rx Instructions .ROUTE 07/10/20 Rx .COMPLEX #50 ea ostomy supplies (Kami Cohesive #20 ea 07/10/20 Rx Seals) ostomy supplies 1 3/4" (Carmen-Fit #60 ea 07/10/20 Rx Natura Urostomy Pouch) amlodipine 5 mg tablet (Norvasc) 5 mg PO QAM 09/18/20 09/18/20 History atorvastatin 40 mg tablet (Lipitor) 40 mg PO QAM 09/18/20 09/18/20 History fexofenadine 180 mg tablet 180 mg PO DAILY PRN 09/18/20 09/18/20 History (Ally Allergy) glipizide 10 mg tablet, extended 10 mg PO QAM 09/18/20 09/18/20 History release 24 hr (Glucotrol XL) glucosamine sulf dipot 1 cap PO QAM 09/18/20 09/18/20 History chlr,msm,chond 550 mg-C 30 mg-dylan 1 mg capsule (Glucosamine Chondroitin) guaifenesin 1,200 mg tablet, 1,200 mg PO BID 09/18/20 09/18/20 History extended release 12 hr (Mucinex) lisinopril 10 mg tablet (Zestril) 10 mg PO QAM 09/18/20 09/18/20 History psyllium 1 packet PO QAM 09/18/20 09/18/20 History Patient History Medical History Allergic rhinitis AMD (age related macular degeneration) Anemia Chronic osteoarthritis Diabetes mellitus with kidney complication Dyslipidemia Hypertension MGUS (monoclonal gammopathy of unknown significance) Osteopenia Peripheral neuropathy Permanent atrial fibrillation Premature ventricular contractions Proteinuria 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 Stage III chronic kidney disease Thrombocytopenia Urothelial carcinoma of bladder May 2010 Venous insufficiency Vitamin D deficiency Surgical History History of total cystectomy May 2010 Family History Father Myocardial infarction Denies family history of Ovarian cancer Prostate cancer Breast cancer Colorectal cancer Social History Smoking Status: Former smoker Age Started Using Tobacco: 16; Age Quit Using Tobacco: 22; Second Hand Exposure: No; Hx Alcohol Use: Yes Alcohol type: beer Hx Substance Use: No Preferred Language: Yi Communication Ability: Effective Visual Impairment: Limited Hearing Ability: Hard of Hearing Eradicator Required: No Beliefs That Will Affect Care: None marital status: Current Living Situation: Spouse current occupational status: retired How many Children do You have: 3 Other Information That Helps Us Care for You: No Feels Safe at Home: Yes Safety Concerns: Feels Safe At This Time Childhood Exposure to Second-Hand Smoke: Yes caffeine: No during the past year weight has: remained stable Dental Care, Regularly: Yes Physical Activity Frequency: 1-2 Times per Week Seatbelt Use: always Sunscreen Use: Yes Assistive Devices: None Assistive Devices Comment: urostomy Review of Systems Constitutional: no fever and no chills Respiratory: + cough Cardiovascular: no chest pain Gastrointestinal: + blood in stools (patient denies, but documented by providers); no abdominal pain, no bloating, no heartburn, no nausea, no vomiting, no coffee ground emesis, no dysphagia, no change in bowel habits, no change in stools, no constipation and no diarrhea/loose stools Hematologic / Lymphatic: no unexplained weight loss Physical Exam Constitutional: well developed and well nourished Respiratory: normal respiratory effort and + cough; no respiratory distress Cardiovascular: Rate/Rhythm: + irregularly irregular Gastrointestinal (Abdomen): normal bowel sounds, soft, nontender, no hepatosplenomegaly urostomy noted Psychiatric: A+Ox3, euthymic affect Results & Data ([facility]) Vital Signs (Past 12 Hours) Vital Signs Temp Pulse Pulse Resp BP Pulse Ox 09/19/20 10:21 75 09/19/20 07:50 36.9 C 83 17 121/65 94 09/19/20 06:04 80 20 94 09/19/20 04:15 36.7 C 82 18 119/67 96 09/19/20 00:03 36.8 C 82 20 114/54 L 95 09/18/20 23:49 82 Results CBC w Diff: RBC 3.01 M/uL (4.7-6.1) L 09/19/20 WBC 7.25 K/uL (4.8-10.8) 09/19/20 Hgb 9.3 g/dL (14.0-18.0) L 09/19/20 Hct 29.5 % (42-52) L 09/19/20 MCV 86.0 fL (80-100) 09/19/20 MCH 27.2 pg (25-34) 09/19/20 MCHC 31.7 g/dL (32-36) L 09/19/20 RDW Standard Deviation 51.2 fL (36.4-46.3) H 09/19/20 RDW Coefficient of Variation 16.2 % (11.5-14.5) H 09/19/20 Plt Count 197 K/uL (130-400) 09/19/20 MPV 9.1 fL (7.4-10.4) 09/19/20 Neutrophils (%) (Auto) 87.5 % 09/18/20 Lymphocytes (%) (Auto) 5.9 % 09/18/20 Monocytes # (Auto) 0.64 K/uL (0.11-0.59) H 09/18/20 Eosinophils # (Auto) 0.07 K/uL (0-0.5) 09/18/20 Immature Granulocyte % (Auto) 0.2 % 09/18/20 Neutrophils # (Auto) 9.88 K/uL (1.4-6.5) H 09/18/20 Lymphocytes # (Auto) 0.66 K/uL (1.2-3.4) L 09/18/20 Monocytes # (Auto) 0.64 K/uL (0.11-0.59) H 09/18/20 Eosinophils # (Auto) 0.07 K/uL (0-0.5) 09/18/20 Basophils # (Auto) 0.01 K/uL (0-0.2) 09/18/20 Immature Granulocyte # (Auto) 0.02 K/uL (0.00-0.02) 09/18/20 Tear Drop Cells 1+ 09/18/20 Results BMP Results: Sodium 143 mmol/L (136-145) 09/19/20 Potassium 4.2 mmol/L (3.5-5.1) 09/19/20 Chloride 118 mmol/L (98-107) H 09/19/20 BUN 28 mg/dl (7-18) H 09/19/20 Creatinine 1.21 mg/dl (0.6-1.4) 09/19/20 Glucose 79 mg/dl (70-99) 09/19/20 Results COVID-19 Adm Lab Results: RBC 3.01 M/uL (4.7-6.1) L 09/19/20 WBC 7.25 K/uL (4.8-10.8) 09/19/20 Hgb 9.3 g/dL (14.0-18.0) L 09/19/20 Hct 29.5 % (42-52) L 09/19/20 Plt Count 197 K/uL (130-400) 09/19/20 Neutrophils (%) (Auto) 87.5 % 09/18/20 Lymphocytes (%) (Auto) 5.9 % 09/18/20 Monocytes # (Auto) 0.64 K/uL (0.11-0.59) H 09/18/20 Eosinophils # (Auto) 0.07 K/uL (0-0.5) 09/18/20 Immature Granulocyte % (Auto) 0.2 % 09/18/20 Neutrophils # (Auto) 9.88 K/uL (1.4-6.5) H 09/18/20 Lymphocytes # (Auto) 0.66 K/uL (1.2-3.4) L 09/18/20 Monocytes # (Auto) 0.64 K/uL (0.11-0.59) H 09/18/20 Eosinophils # (Auto) 0.07 K/uL (0-0.5) 09/18/20 Basophils # (Auto) 0.01 K/uL (0-0.2) 09/18/20 Immature Granulocyte # (Auto) 0.02 K/uL (0.00-0.02) 09/18/20 Tear Drop Cells 1+ 09/18/20 Na 143 mmol/L (136-145) 09/19/20 K 4.2 mmol/L (3.5-5.1) 09/19/20 Cl 118 mmol/L (98-107) H 09/19/20 CO2 21 mmol/L (21-32) 09/19/20 Anion Gap 4.0 (3-11) 09/19/20 BUN 28 mg/dl (7-18) H 09/19/20 Creatinine 1.21 mg/dl (0.6-1.4) 09/19/20 BUN/Creatinine Ratio 22.7 (10-20) H 09/19/20 Glucose Level 79 mg/dl (70-99) 09/19/20 Ca 8.1 mg/dl (8.5-10.1) L 09/19/20 Total Bilirubin 0.3 mg/dl (0.2-1) 09/18/20 AST/SGOT 8 U/L (15-37) L 09/18/20 ALT/SGPT 19 U/L (12-78) 09/18/20 Alkaline Phosphatase 76 U/L (45-117) 09/18/20 Total Protein 6.8 gm/dl (6.4-8.2) 09/18/20 Albumin 2.9 gm/dl (3.4-5.0) L 09/18/20 Globulin 3.9 gm/dl (2.5-4.0) 09/18/20 Albumin/Globulin Ratio 0.7 (0.9-2) L 09/18/20 Troponin I < 0.015 ng/ml (0-0.045) 09/18/20 YL-Jkr-V-Type Natriuretic Pep 1463 pg/ml (0-1800) 09/18/20 Procalcitonin 0.45 ng/ml (0-0.5) 09/18/20 INR 1.1 (0.9-1.1) 09/18/20 COVID-19 PCR NEGATIVE (Negative) 09/18/20 Chest X-Ray 09/18/20 PG Care Time/CCT Total # of Minutes Spent Total Time Spent with Patient: Total time spent is greater than 50% in coordination of care (as documented) at patient's floor/unit and/or counseling patient: Coding Level of Care Code 13363 Initial Inpt Care Lvl 3 Diagnoses Anemia D64.9
[2020-09-19 13:14] LABS: Hematocrit (blood only) 27.4 % (42-52); Hemoglobin 8.8 g/dL (14.0-18.0)
[2020-09-19 16:57] LABS: Hematocrit (blood only) 29.5 % (42-52); Hemoglobin 9.3 g/dL (14.0-18.0)
[2020-09-19] MEDS: LAVAGE SOLUTION 4000ML PO SCH (18:25)
[2020-09-19] MEDS: BENZONATATE 100 MG CAPSULE PO PRN (20:21)
[2020-09-19 20:49] LABS: Hematocrit (blood only) 32.7 % (42-52); Hemoglobin 10.3 g/dL (14.0-18.0)
--- NOTE | 2020-09-19 21:56 | Hospitalist Progress Note ---
Date of Service September 19, 2020 Assessment & Plan (1) Acute GI bleeding: Plan: Dark red blood, does not appear to be melena. Hemoglobin improved after transfusion. will trend hemoglobin appreciate input from GI Patient not interestd in getting a scope. PPI BID IV will place on oral diet (2) Cough: SUBACUTE FOR 7 DAYS will monitor. It appears it is improving with the flutter valve, may consider antibiotics. (3) Acute pain of right knee: this appears to be a chronic problem, will montior (4) Urothelial carcinoma of bladder: urostomy on right flak. (5) Dyslipidemia: will resume home meds once able to take oral (6) Hypertension: will hold due to anemia (7) Permanent atrial fibrillation: will hold anticoagulation (8) Thrombocytopenia: history of above problem, will monitor (2) Cough: (3) Acute pain of right knee: (4) Urothelial carcinoma of bladder: (5) Dyslipidemia: (6) Hypertension: (7) Permanent atrial fibrillation: (8) Thrombocytopenia: Admission and Anticipated Discharge Date Admission Date: September 18, 2020 Subjective Patient reports he is feeling better. He has more energy. Patient though is complaining of his cough. Though he reports that this has decreased. Review of Systems Review of Systems: All systems reviewed & are unremarkable except as noted in HPI & below Physical Exam Constitutional: WD/WN, vitals as above well developed and well nourished Eyes: PERRL, conjunctivae normal, anicteric sclerae ENMT: external ear and nose normal, oropharynx normal Neck: trachea midline, no thyromegaly Respiratory: normal respiratory effort, lungs clear to auscultation normal respiratory effort and + cough; no respiratory distress Cardiovascular: RRR, no murmur, no edema Rate/Rhythm: + irregularly irregular Gastrointestinal (Abdomen): normal bowel sounds, soft, nontender, no hepatosplenomegaly (right urostomy with bag) Skin: no rashes, warm and dry Neurologic: PERRL, EOMI, accommodation nl, no face palsy, no dysarthria Psychiatric: A+Ox3, euthymic affect Lymphatic: no cervical or axillary lymphadenopathy Results & Data Results & Data ([facility]) Vital Signs (Past 12 Hours) Vital Signs Temp Pulse Pulse Resp BP BP Pulse Ox 09/19/20 19:46 36.4 C L 94 H 24 156/77 H 91 09/19/20 15:01 36.6 C 85 17 132/69 93 09/19/20 12:17 36.7 C 78 17 135/72 95 09/19/20 10:21 75 PG Care Time/CCT Total # of Minutes Spent Total Time Spent with Patient: Total time spent is greater than 50% in coordination of care (as documented) at patient's floor/unit and/or counseling patient: Coding Level of Care Code 79425 Subseq Hosp Care Lvl 2 Diagnoses Acute GI bleeding K92.2 Cough R05 Acute pain of right knee M25.561 Urothelial carcinoma of bladder C67.9 Dyslipidemia E78.5 Hypertension I10 Permanent atrial fibrillation I48.2 Thrombocytopenia D69.6
[2020-09-20] MEDS: LAVAGE SOLUTION 4000ML PO SCH (02:30)
[2020-09-20 07:25] LABS: Hematocrit (blood only) 27.3 % (42-52); Hemoglobin 8.7 g/dL (14.0-18.0); Mean Corpuscular Hemoglobin 26.8 pg (25-34); Mean Corpuscular Hgb Conc 31.9 g/dL (32-36); Mean Platelet Volume 9.8 fL (7.4-10.4); Platelet Count 223 K/uL (130-400); RDW Coefficient of Variation 16.1 % (11.5-14.5); Red Blood Count 3.25 M/uL (4.7-6.1); White Blood Count 8.98 K/uL (4.8-10.8)
[2020-09-20 07:58] LABS: BUN Creatinine Ratio 17.2 (10-20); Calcium 8.4 mg/dl (8.5-10.1); Creatinine Clr Calc Pharmacy 45.2 ml/min; Est GFR (African American) 60.3 ml/min; Potassium 3.8 mmol/L (3.5-5.1)
[2020-09-20] MEDS: PANTOprazole 40 MG in SYRINGE 0 ML IV SCH ×2 (09:10→20:14)
--- NOTE | 2020-09-20 10:39 | History & Physical Bridge Note ---
Date of Service September 20, 2020 History & Physical Bridge Note I have examined the patient, reviewed the History & Physical and in the interval since the performance of the History & Physical I have noted the following changes of clinical significance: no changes noted Patient is an 84 yo male with anemia. He completed his bowel prep last night without issue. He denies GI bleeding. H/H presently 8.7/27.3. No further GI symptoms at present. Continue Protonix 40 mg BID. Keep NPO and proceed with EGD & colonoscopy today. Supervising Physician Co-Signing Physician Notes Agree with JACK Jennings as above Abd: Soft, NT, ND, +BS Continue current therapy Proceed with EGD and colonoscopy now.
--- NOTE | 2020-09-20 16:04 | Anesthesiology Consultation ---
Date of Service September 20, 2020 Assessment & Plan (1) Encounter for pre-operative examination: Chart Review Chart Review: Acceptable Risk for Surgery (necessary procedure) and Patient NOT seen in Pre Admission Testing Consults Requested none History Surgery Operation Date: 09/19/20 17:00 Proposed Procedures p Colonoscopy EGD Dr. Sebastien Barragan Case, DO Operation Date: 09/20/20 17:00 Proposed Procedures p Colonoscopy EGD Dr. Sebastien Barragan Case, DO Height/Weight Height: 6 ft 1 in Weight: 73.2 kg Allergies Allergy/AdvReac Type Severity Reaction Status Date / Time No Known Drug Allergies Allergy Verified 09/20/20 15:40 Medications Home Medications Medication Instructions Recorded Confirmed Last Taken acetaminophen 500 mg tablet 500 mg PO QAM tab 08/19/18 09/18/20 09/18/20 (Acetaminophen Extra Strength) cholecalciferol (vitamin D3) 25 1,000 units PO QAM cap 10/19/18 09/18/20 09/18/20 mcg (1,000 unit) capsule (Vitamin D3) coenzyme Q10 100 mg capsule (Co 100 mg PO QAM #30 cap 10/19/18 09/18/20 09/18/20 Q-10) pvhsytmp-ygk-jkbrrx 5 mg-zeaxanth 1 cap PO QAM cap 10/19/18 09/18/20 09/18/20 1 mg-bilberry 7.5 mg-herbal capsule ([employer] Formula) polyethylene glycol 3350 17 17 g PO HS gm 10/19/18 09/18/20 09/17/20 gram/dose oral powder (Miralax) cyanocobalamin (vitamin B-12) 100 0 mcg PO QAM tab 10/25/19 09/18/20 Unknown mcg tablet (Vitamin B-12) garlic 1,000 mg capsule (garlic 1,000 mg PO QAM cap 10/25/19 09/18/20 09/18/20 oil) apixaban 2.5 mg tablet (Eliquis) 2.5 mg PO BID #180 tab 01/11/20 09/18/20 09/18/20 lancets (OneTouch UltraSoft #100 ea 03/21/20 05/30/20 Unknown Lancets) blood sugar diagnostic (OneTouch See Rx Instructions .ROUTE 04/13/20 05/30/20 Unknown Ultra Blue Test Strip) .COMPLEX #100 strip adhesive remover (Uni-Solve #240 ml 07/10/20 Unknown Adhesive Remover) drainage bag 2,000 mL #6 ea 07/10/20 Unknown miscellaneous medical supply See Rx Instructions .ROUTE 07/10/20 Unknown .COMPLEX #1 ea miscellaneous medical supply See Rx Instructions .ROUTE 07/10/20 Unknown .COMPLEX #30 ea miscellaneous medical supply See Rx Instructions .ROUTE 07/10/20 Unknown .COMPLEX #50 ea ostomy supplies (Kami Cohesive #20 ea 07/10/20 Unknown Seals) ostomy supplies 1 3/4" (Carmen-Fit #60 ea 07/10/20 Unknown Natura Urostomy Pouch) amlodipine 5 mg tablet (Norvasc) 5 mg PO QAM 09/18/20 09/18/20 09/18/20 atorvastatin 40 mg tablet (Lipitor) 40 mg PO QAM 09/18/20 09/18/20 09/18/20 fexofenadine 180 mg tablet 180 mg PO DAILY PRN 09/18/20 09/18/20 09/18/20 (Ally Allergy) glipizide 10 mg tablet, extended 10 mg PO QAM 09/18/20 09/18/20 09/18/20 release 24 hr (Glucotrol XL) glucosamine sulf dipot 1 cap PO QAM 09/18/20 09/18/20 09/18/20 chlr,msm,chond 550 mg-C 30 mg-dylan 1 mg capsule (Glucosamine Chondroitin) guaifenesin 1,200 mg tablet, 1,200 mg PO BID 09/18/20 09/18/20 09/18/20 extended release 12 hr (Mucinex) lisinopril 10 mg tablet (Zestril) 10 mg PO QAM 09/18/20 09/18/20 09/18/20 psyllium 1 packet PO QAM 09/18/20 09/18/20 09/18/20 Active Medications Generic Name Dose Route Start Last Admin Trade Name Freq PRN Reason Stop Dose Admin Atorvastatin Calcium 40 mg 09/19/20 09:00 09/19/20 08:56 Atorvastatin 40 Mg Tab PO 10/19/20 08:59 40 mg QAM BERE Administration Guaifenesin 600 mg 09/19/20 09:00 09/19/20 20:17 Guaifenesin 600 Mg Tabcr PO 10/19/20 08:59 600 mg Q12 BERE Administration Sodium Chloride 1,000 mls @ 100 mls/hr 09/18/20 14:00 09/19/20 05:19 Nss 1000ml IV 10/18/20 13:59 0 mls/hr .Q10H BERE Infusion Pantoprazole Sodium 40 mg/ 10 mls @ 5 mls/min 09/18/20 21:00 09/20/20 09:10 Syringe IV 10/18/20 20:59 5 mls/min BID BERE Administration Levalbuterol HCl 0.63 mg 09/19/20 05:17 09/19/20 06:04 Levalbuterol Hcl 0.63 Mg/3 Ml Neb NEB 10/19/20 06:59 0.63 mg Q6R PRN Administration SOB/wheeze NPO Date Last Intake of Fluids: 09/19/20 Time Last Intake of Fluids: 11:59 Last Intake of Fluids Comment: prep-go lytly. 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 Stage III chronic kidney disease Thrombocytopenia Urothelial carcinoma of bladder May 2010 Venous insufficiency Vitamin D deficiency Past Family History Family History Father Myocardial infarction Denies family history of Ovarian cancer Prostate cancer Breast cancer Colorectal cancer Past Surgical History Surgical History History of total cystectomy May 2010 Social History Smoking Status: Former smoker tobacco type: cigarettes Hx Alcohol Use: Yes Alcohol type: beer Alcohol Intake Frequency Comment: 2-3/week Hx Substance Use: No Physical Exam Vital Signs Last Vital Signs Temp 36.9 C 09/20/20 15:43 Pulse 84 09/20/20 15:43 Resp 18 09/20/20 15:43 BP 141/93 H 09/20/20 15:43 Pulse Ox 96 09/20/20 15:43 Testing Laboratory Results 09/20/20 06:46 09/20/20 06:46 PT 10.7 Seconds (9.0-12.0) 09/18/20 09:12 INR 1.1 (0.9-1.1) 09/18/20 09:12 Urine Color Yellow 09/18/20 18:30 Urine Appearance Clear (Clear) 09/18/20 18:30 Urine pH 6.5 (4.5-7.5) 09/18/20 18:30 Ur Specific [place] 1.009 (1.000-1.030) 09/18/20 18:30 Urine Protein Negative (Negative) 09/18/20 18:30 Urine Glucose (UA) Negative (Negative) 09/18/20 18:30 Urine Ketones Negative (Negative) 09/18/20 18:30 Urine Nitrite Positive (Negative) A 09/18/20 18:30 Ur Leukocyte Esterase Trace (Negative) H 09/18/20 18:30 Urine WBC (Auto) 10-30 /hpf (0-5) H 09/18/20 18:30 Urine RBC (Auto) 0-4 /hpf (0-4) 09/18/20 18:30 U Hyaline Cast (Auto) 1-5 /lpf (0-5) 09/18/20 18:30 U Epithel Cells (Auto) >30 /lpf (0-5) H 09/18/20 18:30 Urine Bacteria (Auto) 1+ (Negative) H 09/18/20 18:30 Blood Type A Negative 09/18/20 12:13 Antibody Screen NEGATIVE 09/18/20 12:13 09/18/20 18:30 Urine Culture - Final Urine,Clean Catch More than three types of organisms present, all high counts. Repeat collection recommended. No further identifications or sensitivities to follow. 09/18/20 09:48 Aerobic Blood Culture - Preliminary Blood No growth in Aerobic bottle after 48 hours. Anaerobic Blood Culture - Preliminary No growth in Anaerobic bottle after 48 hours. 09/18/20 09:12 Aerobic Blood Culture - Preliminary Blood No growth in Aerobic bottle after 48 hours. Anaerobic Blood Culture - Preliminary No growth in Anaerobic bottle after 48 hours. 09/20/20 09/20/20 11:56 07:13 POC Glucose 155 H 197 H Electrocardiogram Date: 09/18/20 SR with 1st degree AV block, multiple PVCs possible bigeminy, rate 96 Chest X-Ray Date: 09/18/20 XR chest 2V PA/lateral HISTORY: cough COMPARISON: Chest 10/18/2017. FINDINGS: No pneumothorax. No pleural effusions. The lungs remain hyperexpanded. The cardiac silhouette is mildly enlarged. No new focal lung consolidations to suggest pneumonia. No evidence for pulmonary edema. Extensive calcific granulomas are again seen throughout the lungs. This is similar to the prior s tudy. IMPRESSION: 1. No new focal lung consolidations to suggest pneumonia. 2. Innumerable calcified granulomas are again noted throughout the lungs. ACT 112: Negative or not required by law. Electronically signed by: Armando Carpenter M.D. 09/18/2020 11:21 AM Dictated: 09/18/20 1120
[2020-09-20] MEDS ORDERED: fentaNYL citrate 100 MCG/2 ML VIAL ONE (16:42)
[2020-09-20] MEDS ORDERED: LIDOCAINE 2% 2 ML VIAL/AMP(20MG/ML) INFIL ONE (16:47)
[2020-09-20] MEDS ORDERED: ONDANSETRON INJ 2 MG/ML 2 ML VIAL ONE (16:47)
[2020-09-20] MEDS ORDERED: PROPOFOL IV EMULSION 10 MG/ML 20 ML VIAL IV ONE (16:47)
[2020-09-20] MEDS ORDERED: ENDOSCOPIC MARKER 5 ML SYR TOP ONE (16:47)
[2020-09-20] MEDS ORDERED: PHENYLEPHRINE 100MCG/ML 5ML SYR ONE (16:51)
--- NOTE | 2020-09-20 17:14 | GI REPORT ---
Patient Name: Raphael Espinosa Procedure Date: 09/20/2020 4:15 PM Date of : 1935 Admit Type: Inpatient Age: 84 Gender: Male Attending MD: Yousif Crowe DO Procedure: Upper GI endoscopy Providers: Yousif Crowe DO Referring MD: Referred Self Indications: Iron deficiency anemia secondary to chronic blood loss, Suspected upper gastrointestinal bleeding in patient with chronic blood loss Medicines: Monitored Anesthesia Care Complications: No immediate complications. Estimated Blood Loss: Estimated blood loss: none. Procedure: Pre-Anesthesia Assessment: - Prior to the procedure, a History and Physical was performed, and patient medications and allergies were reviewed. The patient's tolerance of previous anesthesia was also reviewed. The risks and benefits of the procedure and the sedation options and risks were discussed with the patient. All questions were answered, and informed consent was obtained. Prior Anticoagulants: The patient has taken Eliquis (apixaban), last dose was 2 days prior to procedure. ASA Grade Assessment: III - A patient with severe systemic disease. After reviewing the risks and benefits, the patient was deemed in satisfactory condition to undergo the procedure. After obtaining informed consent, the endoscope was passed under direct vision. Throughout the procedure, the patient's blood pressure, pulse, and oxygen saturations were monitored continuously. The scope was introduced through the mouth, and advanced to the third part of duodenum. The upper GI endoscopy was accomplished without difficulty. The patient tolerated the procedure well. Findings: The esophagus was normal. The stomach was normal. The examined duodenum was normal. Impression: - Normal esophagus. - Normal stomach. - Normal examined duodenum. - No specimens collected. Recommendation: - Perform a colonoscopy today. Yousif Crowe DO 09/20/2020 5:13:35 PM This report has been signed electronically. Note Initiated On: 09/20/2020 4:15 PM Number of Addenda: 0 I attest to the content of the Intraoperative Record and orders documented therein, exceptions below {[id number]}
--- NOTE | 2020-09-20 17:29 | GI REPORT ---
Patient Name: Raphael Espinosa Procedure Date: 09/20/2020 4:13 PM Date of : 1935 Admit Type: Inpatient Age: 84 Gender: Male Attending MD: Yousif Crowe DO Procedure: Colonoscopy Providers: Yousif Crowe DO Referring MD: Raphael Douglas M.D. Indications: Iron deficiency anemia secondary to chronic blood loss Medicines: Monitored Anesthesia Care Complications: No immediate complications. Estimated Blood Loss: Estimated blood loss: none. Procedure: Pre-Anesthesia Assessment: - Prior to the procedure, a History and Physical was performed, and patient medications and allergies were reviewed. The patient's tolerance of previous anesthesia was also reviewed. The risks and benefits of the procedure and the sedation options and risks were discussed with the patient. All questions were answered, and informed consent was obtained. Prior Anticoagulants: The patient has taken Eliquis (apixaban), last dose was 2 days prior to procedure. ASA Grade Assessment: III - A patient with severe systemic disease. After reviewing the risks and benefits, the patient was deemed in satisfactory condition to undergo the procedure. After I obtained informed consent, the scope was passed under direct vision. Throughout the procedure, the patient's blood pressure, pulse, and oxygen saturations were monitored continuously. The scope was introduced through the anus with the intention of advancing to the ileum. The scope was advanced to the ascending colon before the procedure was aborted. Medications were given. The colonoscopy was performed without difficulty. The patient tolerated the procedure well. The quality of the bowel preparation was good. No anatomical landmarks were photographed. Findings: The perianal and digital rectal examinations were normal. An infiltrative partially obstructing large mass was found in the ascending colon and in the proximal ascending colon. The mass was circumferential. In addition, its diameter measured thirty mm. Oozing was present. Biopsies were taken with a cold forceps for histology. An infiltrative partially obstructing large mass was found in the transverse colon and in the mid transverse colon. The mass was circumferential. The mass measured twenty cm in length. In addition, its diameter measured twenty-nine to thirty mm. Oozing was present. Biopsies were taken with a cold forceps for histology. Non-bleeding internal hemorrhoids were found during endoscopy. The hemorrhoids were small. Impression: - Malignant partially obstructing tumor in the ascending colon and in the proximal ascending colon. Biopsied. - Malignant partially obstructing tumor in the transverse colon and in the mid transverse colon. Biopsied. - Non-bleeding internal hemorrhoids. Recommendation: - [facility]. - Clear liquid diet. - Continue present medications. - Await pathology results. - Check CEA today. - Perform a CT scan (computed tomography) of chest with contrast, abdomen with contrast and pelvis with contrast today. Yousif Crowe, DO 09/20/2020 5:28:24 PM This report has been signed electronically. Note Initiated On: 09/20/2020 4:13 PM Number of Addenda: 0 I attest to the content of the Intraoperative Record and orders documented therein, exceptions below {[id number]}
--- NOTE | 2020-09-20 17:37 | Anesthesiology Progress Note ---
Date of Service September 20, 2020 Anesthesia Post Procedure Vital Signs Vital Signs: Temp Pulse Pulse Resp BP BP Pulse Ox 09/20/20 17:23 81 18 104/57 L 96 09/20/20 17:10 76 18 102/49 L 95 09/20/20 15:43 36.9 C 84 18 141/93 H 96 09/20/20 12:05 36.5 C 84 18 126/71 96 09/20/20 10:33 97 H 09/20/20 07:54 36.9 C 82 18 139/77 94 09/20/20 03:36 36.9 C 88 16 119/69 95 09/20/20 00:53 99 H 09/20/20 00:03 36.9 C 92 H 17 122/68 92 09/19/20 19:46 36.4 C L 94 H 24 156/77 H 91 Transfer of Care Handoff Completed per policy Notes Mental Status: alert / awake / arousable Patient Amnestic to Procedure: Yes Nausea / Vomiting: adequately controlled Pain: adequately controlled Airway Patency, RR, SpO2: stable & adequate BP & HR: stable & adequate Hydration State: stable & adequate Anesthetic Complications: no major complications apparent and Pt Satisfied with anesthetic care Notes: The patient is awake and comfortable.
[2020-09-20] MEDS: ATORVASTATIN 40 MG TAB PO SCH (18:07)
[2020-09-20] MEDS: guaiFENesin 600 MG TABCR PO SCH ×2 (18:07→20:13)
[2020-09-20 18:10] LABS: INR 1.1 (0.9-1.1); Prothrombin Time 10.9 Seconds (9.0-12.0)
--- NOTE | 2020-09-20 20:33 | Surgery Consultation ---
Date of Consultation September 20, 2020 Assessment & Plan (1) Colonic mass: Patient's colon mass is felt to represent colon cancer by gastroenterology service CT scans of the chest, abdomen, and pelvis have been ordered for staging and are pending Patient is currently on a clear liquid diet Recommend continue to hold patient's Eliquis We will await the patient's CT scans for staging We will preemptively make the patient n.p.o. after midnight in the event that surgical intervention is performed tomorrow but this will be dependent on Dr. Alvarez's evaluation of the patient Supervising Physician Co-Signing Physician Notes As per Wil Winkler physician assistant administrator The patient is resting comfortably this morning stating that is his birthday he is 85 years old he lives with his I did discuss with him the recommendation that was probably need part of his colon taken out but given that this is a major undertaking would like to make sure that his cardiac and pulmonary status is optimized before proceeding with surgery having said this will keep him over the weekend and plan for surgery there Thursday most likely Thursday the meantime he can have a full liquid diet I will start him on p.o. antibiotics the day before surgery which would be neomycin 1 g p.o. and Flagyl 500 mg p.o. at 2, 6, and 10 PM the day before surgery History of Present Illness Reason for Consultation: Colon mass Attending Physician: Raphael Douglas History of Present Illness This is an 84-year-old male who presented to the emergency department on September 18 secondary to 3-week history of cough. Patient notes that his cough persisted so he presented to the emergency department for evaluation. While the patient was in the emergency department he was found to be anemic and on exam at the time of admission was found to have dark red stool and was therefore admitted to the hospital. At time of admission the patient's hemoglobin was noted to be 6.9. His creatinine was noted to be 1.7. Patient required transfusion of 2 units of packed red blood cells and a GI evaluation was undertaken. Today the patient underwent an EGD which revealed a normal esophagus, normal stomach, and normal duodenum. Patient also underwent a colonoscopy where patient was found to have a normal digital rectal exam. Patient was found to have a partially obstructing infiltrating mass in the a sending colon. Oozing was present from this mass and biopsies were taken. In addition an infiltrative partially obstructing mass was also found in the transverse colon. Oozing was present from this mass. Biopsies were taken. The patient reports a history of bladder cancer for which he underwent a cystectomy with ileal conduit placement. I did question the patient out family history of colon cancer which he denies. Patient does note that over the past year he has lost approximately 2030 pounds and notes that his appetite has been decreased. Prior to admission the patient did not note any melanotic stools, hematochezia, or bright red blood per rectum. He also denied any hematemesis. He denies any abdominal pain. Patient also denied any lightheadedness or dizziness. He denies any chest pain or dyspnea on exertion. Patient does have a history of atrial fibrillation for which he takes Eliquis. Patient notes that he has not taken his Eliquis since his evening dose of September 17. Because of the findings on colonoscopy today GI has ordered a CT scan of the c hest, abdomen, and pelvis for staging. Surgical consultation was recommended. Review of patient's most recent labs show that his hemoglobin and hematocrit have increased to 8.7 and 27.3 respectively. Again he has received transfusion of 2 units of packed red blood cells. His white blood cell count was noted to be within the normal range. His platelet count is noted to be within normal range. His INR is noted to be normal at 1.1. Chemistry profile showed sodium and potassium were both normal. His BUN has a slight elevation at 22 but and his creatinine is now normal at 1.2. Patient did have a CEA level drawn that was noted to be elevated at 4.2. A chest x-ray performed this admission did show numerous granulomas throughout the lungs. At the time of my interview the patient was resting comfortably in bed and he was in no distress. Allergies Allergy/AdvReac Type Severity Reaction Status Date / Time No Known Drug Allergies Allergy Verified 09/20/20 15:40 Home Medications Medication Instructions Recorded Confirmed Type acetaminophen 500 mg tablet 500 mg PO QAM tab 08/19/18 09/18/20 History (Acetaminophen Extra Strength) cholecalciferol (vitamin D3) 25 1,000 units PO QAM cap 10/19/18 09/18/20 History mcg (1,000 unit) capsule (Vitamin D3) coenzyme Q10 100 mg capsule (Co 100 mg PO QAM #30 cap 10/19/18 09/18/20 History Q-10) hunmsusk-zwa-xkszyw 5 mg-zeaxanth 1 cap PO QAM cap 10/19/18 09/18/20 History 1 mg-bilberry 7.5 mg-herbal capsule (VenJuvo Health Formula) polyethylene glycol 3350 17 17 g PO HS gm 10/19/18 09/18/20 History gram/dose oral powder (Miralax) cyanocobalamin (vitamin B-12) 100 0 mcg PO QAM tab 10/25/19 09/18/20 History mcg tablet (Vitamin B-12) garlic 1,000 mg capsule (garlic 1,000 mg PO QAM cap 10/25/19 09/18/20 History oil) apixaban 2.5 mg tablet (Eliquis) 2.5 mg PO BID #180 tab 01/11/20 09/18/20 Rx lancets (OneTouch UltraSoft #100 ea 03/21/20 05/30/20 Rx Lancets) blood sugar diagnostic (OneTouch See Rx Instructions .ROUTE 04/13/20 05/30/20 Rx Ultra Blue Test Strip) .COMPLEX #100 strip adhesive remover (Uni-Solve #240 ml 07/10/20 Rx Adhesive Remover) drainage bag 2,000 mL #6 ea 07/10/20 Rx miscellaneous medical supply See Rx Instructions .ROUTE 07/10/20 Rx .COMPLEX #1 ea miscellaneous medical supply See Rx Instructions .ROUTE 07/10/20 Rx .COMPLEX #30 ea miscellaneous medical supply See Rx Instructions .ROUTE 07/10/20 Rx .COMPLEX #50 ea ostomy supplies (Kami Cohesive #20 ea 07/10/20 Rx Seals) ostomy supplies 1 3/4" (Carmen-Fit #60 ea 07/10/20 Rx Natura Urostomy Pouch) amlodipine 5 mg tablet (Norvasc) 5 mg PO QAM 09/18/20 09/18/20 History atorvastatin 40 mg tablet (Lipitor) 40 mg PO QAM 09/18/20 09/18/20 History fexofenadine 180 mg tablet 180 mg PO DAILY PRN 09/18/20 09/18/20 History (Ally Allergy) glipizide 10 mg tablet, extended 10 mg PO QAM 09/18/20 09/18/20 History release 24 hr (Glucotrol XL) glucosamine sulf dipot 1 cap PO QAM 09/18/20 09/18/20 History chlr,msm,chond 550 mg-C 30 mg-dylan 1 mg capsule (Glucosamine Chondroitin) guaifenesin 1,200 mg tablet, 1,200 mg PO BID 09/18/20 09/18/20 History extended release 12 hr (Mucinex) lisinopril 10 mg tablet (Zestril) 10 mg PO QAM 09/18/20 09/18/20 History psyllium 1 packet PO QAM 09/18/20 09/18/20 History Patient History Medical History Allergic rhinitis AMD (age related macular degeneration) Anemia Chronic osteoarthritis Diabetes mellitus with kidney complication Dyslipidemia Hypertension MGUS (monoclonal gammopathy of unknown significance) Osteopenia Peripheral neuropathy Permanent atrial fibrillation Premature ventricular contractions Proteinuria 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 Stage III chronic kidney disease Thrombocytopenia Urothelial carcinoma of bladder May 2010 Venous insufficiency Vitamin D deficiency Surgical History History of total cystectomy May 2010 Family History Father Myocardial infarction Denies family history of Ovarian cancer Prostate cancer Breast cancer Colorectal cancer Social History Smoking Status: Former smoker Age Started Using Tobacco: 16; Age Quit Using Tobacco: 22; Second Hand Exposure: No; Hx Alcohol Use: Yes Alcohol type: beer Hx Substance Use: No Preferred Language: Faroese Communication Ability: Effective Visual Impairment: Limited Hearing Ability: Hard of Hearing Pattern Lease Inspector Required: No Beliefs That Will Affect Care: None marital status: Current Living Situation: Spouse current occupational status: retired How many Children do You have: 3 Other Information That Helps Us Care for You: No Feels Safe at Home: Yes Safety Concerns: Feels Safe At This Time Childhood Exposure to Second-Hand Smoke: Yes caffeine: No during the past year weight has: remained stable Dental Care, Regularly: Yes Physical Activity Frequency: 1-2 Times per Week Seatbelt Use: always Sunscreen Use: Yes Assistive Devices: Glasses Assistive Devices Comment: urostomy Review of Systems Constitutional: no fever and no chills Eyes: no diplopia Ear, Nose, Mouth, Throat: no ear pain Respiratory: + cough Cardiovascular: no chest pain Gastrointestinal: + blood in stools (This was denied by patient but found to be positive on physical exam at time of admission); no abdominal pain, no nausea, no vomiting, no coffee ground emesis, no dysphagia, no change in bowel habits and no diarrhea/loose stools Genitourinary: + as per Subjective / HPI (History of cystectomy) Musculoskeletal: no back pain Integumentary: no rash Neurologic: no localized weakness Physical Exam Constitutional: well developed and well nourished; no acute distress Eyes: no conjunctival abnormality ENMT: Ears: no hearing impairment Neck: trachea midline Respiratory: normal respiratory effort; no respiratory distress and no labored breathing Cardiovascular: Rate/Rhythm: regular rate and regular rhythm Gastrointestinal (Abdomen): Abdomen is soft nontender and nondistended. Patient did have a stoma noted for urinary diversion. Musculoskeletal: No calf tenderness Skin: no rashes Neurologic: moves all extremities Psychiatric: A+Ox3, euthymic affect Results & Data ([facility]) Vital Signs (Past 12 Hours) Vital Signs Temp Pulse Pulse Resp BP Pulse Ox 09/20/20 19:28 36.6 C 84 19 137/68 90 09/20/20 17:52 36.4 C L 71 19 143/75 H 94 09/20/20 17:38 80 18 109/66 97 09/20/20 17:23 81 18 104/57 L 96 09/20/20 17:10 76 18 102/49 L 95 09/20/20 15:43 36.9 C 84 18 141/93 H 96 09/20/20 12:05 36.5 C 84 18 126/71 96 09/20/20 10:33 97 H PG Care Time/CCT Total # of Minutes Spent Total Time Spent with Patient: Total time spent is greater than 50% in coordination of care (as documented) at patient's floor/unit and/or counseling patient: Coding Level of Care Code 65505 Inpt Consult Level 5 Diagnoses Colonic mass K63.89
--- NOTE | 2020-09-20 21:10 | Hospitalist Progress Note ---
Date of Service September 20, 2020 Assessment & Plan (1) Acute GI bleeding: Plan: Dark red blood, does not appear to be melena. Hemoglobin improved after transfusion. Hemoglobin appears to be stable. appreciate input from GI Patient will have a colonscpy and upper endoscopy. PPI BID IV (2) Cough: Plan: SUBACUTE FOR 7 DAYS will monitor. It appears it is improving with the flutter valve, may consider antibiotics. (3) Acute pain of right knee: Plan: this appears to be a chronic problem, will montior (4) Urothelial carcinoma of bladder: Plan: urostomy on right flank. (5) Dyslipidemia: Plan: will resume home meds once able to take oral (6) Hypertension: Plan: will hold due to anemia (7) Permanent atrial fibrillation: Plan: will hold anticoagulation (8) Thrombocytopenia: Plan: history of above problem, will monitor (9) Acute blood loss anemia: Plan: secondary to GI bleed Admission and Anticipated Discharge Date Admission Date: September 18, 2020 Subjective Patient reports that he continues to have a cough but it has decreased in intensity. Review of Systems Review of Systems: All systems reviewed & are unremarkable except as noted in HPI & below Physical Exam Constitutional: WD/WN, vitals as above well developed and well nourished Eyes: PERRL, conjunctivae normal, anicteric sclerae ENMT: external ear and nose normal, oropharynx normal Neck: trachea midline, no thyromegaly Respiratory: normal respiratory effort, lungs clear to auscultation Cardiovascular: RRR, no murmur, no edema Rate/Rhythm: + irregularly irregular Gastrointestinal (Abdomen): normal bowel sounds, soft, nontender, no hepatosplenomegaly (right urostomy with bag) Skin: no rashes, warm and dry Neurologic: PERRL, EOMI, accommodation nl, no face palsy, no dysarthria Psychiatric: A+Ox3, euthymic affect Lymphatic: no cervical or axillary lymphadenopathy Results & Data Results & Data ([facility]) Vital Signs (Past 12 Hours) Vital Signs Temp Pulse Pulse Resp BP Pulse Ox 09/20/20 19:28 36.6 C 84 19 137/68 90 09/20/20 17:52 36.4 C L 71 19 143/75 H 94 09/20/20 17:38 80 18 109/66 97 09/20/20 17:23 81 18 104/57 L 96 09/20/20 17:10 76 18 102/49 L 95 09/20/20 15:43 36.9 C 84 18 141/93 H 96 09/20/20 12:05 36.5 C 84 18 126/71 96 09/20/20 10:33 97 H PG Care Time/CCT Total # of Minutes Spent Total Time Spent with Patient: Total time spent is greater than 50% in coordination of care (as documented) at patient's floor/unit and/or counseling patient: Coding Level of Care Code 99434 Subseq Hosp Care Lvl 2 Diagnoses Acute GI bleeding K92.2 Cough R05 Acute pain of right knee M25.561 Urothelial carcinoma of bladder C67.9 Dyslipidemia E78.5 Hypertension I10 Permanent atrial fibrillation I48.2 Thrombocytopenia D69.6 Acute blood loss anemia D62 Time Spent (min) 25
[2020-09-20] MEDS ORDERED: OPTIRAY 320 100ml IV ONE (21:12)
--- NOTE | 2020-09-21 07:32 | CT Scan Report ---
CT abd pelvis oral and IV con CLINICAL HISTORY: Colon cancer COMPARISON STUDY: 01/13/2014 TECHNIQUE: Patient was scanned following administration of dilute oral contrast, and in a dynamic hel ical fashion during intravenous administration of 94 cc of Optiray 320 A dose lowering technique was utilized adhering to the principles of ALARA. CT DOSE: FINDINGS: Lower chest: There are coronary artery calcifications present. There is lower lobe bronchial wall thi ckening and mucous plugging with associated bibasilar nodular airspace opacities. There are multiple scattered pleural calcifications. Liver: There is a to small to characterize 4 mm hypodensity within the right hepatic Gallbladder: Unremarkable. Spleen: Normal in size and attenuation. Pancreas: Unremarkable. Adrenal glands: Unremarkable. Kidneys: There is a 19 mm right renal hypodensities statistically representing a cyst. There is no hy dronephrosis. Bowel: There are no transition zones to indicate bowel obstruction. There is colonic diverticulosis. There is no evidence of acute diverticulitis. There is no evidence of acute appendicitis. There is valencia wel wall thickening and luminal narrowing involving the proximal transverse colon, suspicious for a c olon carcinoma.. Peritoneum: There is no intraperitoneal free air or abdominal ascites. Vasculature: The abdominal aorta is normal in course and caliber. Adenopathy: None. Pelvic viscera: The patient appears to be status post a prostatectomy and cystectomy with an ileal lo op diversion. Skeletal structures: No destructive osseous lesions are seen. IMPRESSION: 1. Postsurgical changes of a prior prostatectomy, and cystectomy with ileal loop diversion 2. No evidence of bowel obstruction. No evidence of free air 3. Bowel wall thickening and luminal narrowing involving the proximal transverse colon suspicious for a colon carcinoma 4. To small to characterize 4 mm hypodensity within the right hepatic lobe 5. Lower lobe bronchial wall thickening, mucous plugging, and bibasilar nodular opacities ACT 112: Negative or not required by law. Electronically signed by: Douglas Izaguirre M.D. 09/21/2020 7:31 AM
[2020-09-21 07:33] LABS: BUN Creatinine Ratio 12.6 (10-20); Calcium 8.3 mg/dl (8.5-10.1); Creatinine Clr Calc Pharmacy 44.3 ml/min; Est GFR (African American) 59.3 ml/min; Est GFR (Non-African American) 51.2 ml/min; Potassium 3.7 mmol/L (3.5-5.1)
--- NOTE | 2020-09-21 08:44 | CT Scan Report ---
CT OF THE CHEST WITH IV CONTRAST CLINICAL HISTORY: Colon cancer COMPARISON STUDY: 01/13/2014 TECHNIQUE: Following the IV administration of 94 mL of Optiray, CT of the thorax was performed from the thoracic inlet to the lung bases. Images are reviewed in the axial, sagittal, and coronal planes. IV contrast was administered without complication. A dose lowering technique was utilized adhering to the principles of ALARA. CT DOSE: 633.93 mGy.cm FINDINGS: Thyroid: Imaged portions of the thyroid gland are normal in appearance. Thoracic aorta: The thoracic aorta is normal in course and caliber, noting standard 3-vessel arch hola ana. No aneurysm or dissection is seen. Pulmonary vasculature: The pulmonary trunk is normal in caliber. There are no central filling defects identified to suggest pulmonary embolus. Note that this examination was not protocoled for the evalu ation of pulmonary emboli. HEART: There are coronary artery calcifications. There is no significant pericardial effusion. Lungs and pleural spaces: There are innumerable calcified pulmonary nodules, likely postinflammatory. There is lower lobe bronchial wall thickening and mucous plugging with distal parenchymal opacities atelectatic versus infectious/inflammatory. Mediastinum: There is an enlarging 25 mm low-density paraesophageal lesion located inferior to the ca juliana. Mediastinal lymph nodes are the upper limits of normal in size. Yazmin: There is no evidence of pathologic hilar lymphadenopathy Axilla: There is no evidence of pathologic axillary lymphadenopathy. Upper abdomen: Partially visualized upper abdominal viscera is within normal limits. Skeletal structures: There are no lytic or blastic osseous lesions. IMPRESSION: 1. 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 Too numerous to count calcified pulmonary nodules, likely postinflammatory 3. Lower lobe bronchial wall thickening, mucous plugging, and peripheral opacities atelectatic versus infectious/inflammatory 4. No evidence of intrathoracic metastasis. ACT 112: Negative or not required by law. Electronically signed by: Douglas Izaguirre M.D. 09/21/2020 8:43 AM
[2020-09-21] MEDS: PANTOprazole 40 MG in SYRINGE 0 ML IV SCH ×2 (09:17→20:05)
[2020-09-21] MEDS: ATORVASTATIN 40 MG TAB PO SCH (09:17)
[2020-09-21] MEDS: guaiFENesin 600 MG TABCR PO SCH ×2 (09:18→20:04)
--- NOTE | 2020-09-21 20:39 | Hospitalist Progress Note ---
Date of Service September 21, 2020 Assessment & Plan (1) Acute GI bleeding: Plan: Dark red blood, does not appear to be melena. Hemoglobin improved after transfusion. Hemoglobin appears to be stable. appreciate input from GI Colonoscopy showed : Malignant partially obstructing tumor in the ascending colon and in the proximal ascending colon. Biopsied. - Malignant partially obstructing tumor in the transverse colon and in the mid transverse colon. Biopsied. - Non-bleeding internal hemorrhoids 4 mm hypodensity within the right hepatic lobe noted on CT SCAN. No signs of mets to chest. Appreciate input from surgery PPI BID IV (2) Cough: Plan: SUBACUTE FOR 7 DAYS will monitor. It appears it is improving with the flutter valve, may consider antibiotics. (3) Acute pain of right knee: Plan: this appears to be a chronic problem, will montior (4) Urothelial carcinoma of bladder: Plan: urostomy on right flank. (5) Dyslipidemia: Plan: will resume home meds once able to take oral (6) Hypertension: Plan: will hold due to anemia (7) Permanent atrial fibrillation: Plan: will hold anticoagulation (8) Thrombocytopenia: Plan: history of above problem, will monitor (9) Acute blood loss anemia: Plan: secondary to GI bleed Admission and Anticipated Discharge Date Admission Date: September 18, 2020 Subjective Patient reports no new symptoms. Review of Systems Review of Systems: All systems reviewed & are unremarkable except as noted in HPI & below Physical Exam Constitutional: WD/WN, vitals as above well developed and well nourished Eyes: PERRL, conjunctivae normal, anicteric sclerae ENMT: external ear and nose normal, oropharynx normal Neck: trachea midline, no thyromegaly Respiratory: normal respiratory effort, lungs clear to auscultation normal respiratory effort and + cough; no respiratory distress Cardiovascular: RRR, no murmur, no edema Rate/Rhythm: + irregularly irregular Gastrointestinal (Abdomen): normal bowel sounds, soft, nontender, no hepatosplenomegaly (right urostomy with bag) Skin: no rashes, warm and dry Neurologic: PERRL, EOMI, accommodation nl, no face palsy, no dysarthria Psychiatric: A+Ox3, euthymic affect Lymphatic: no cervical or axillary lymphadenopathy Results & Data Results & Data ([facility]) Vital Signs (Past 12 Hours) Vital Signs Temp Pulse Pulse Resp BP BP Pulse Ox 07/16/21 19:20 37.2 C 88 18 120/69 92 09/21/20 15:50 36.6 C 69 18 121/72 92 09/21/20 14:57 79 09/21/20 12:09 37.0 C 86 18 126/60 90 PG Care Time/CCT Total # of Minutes Spent Total Time Spent with Patient: Total time spent is greater than 50% in coordination of care (as documented) at patient's floor/unit and/or counseling patient: Coding Level of Care Code 79997 Subseq Hosp Care Lvl 2 Diagnoses Acute GI bleeding K92.2 Cough R05 Acute pain of right knee M25.561 Urothelial carcinoma of bladder C67.9 Dyslipidemia E78.5 Hypertension I10 Permanent atrial fibrillation I48.2 Thrombocytopenia D69.6 Acute blood loss anemia D62 Time Spent (min) 25
[2020-09-22] MEDS: PANTOprazole 40 MG in SYRINGE 0 ML IV SCH (07:48)
[2020-09-22] MEDS: ATORVASTATIN 40 MG TAB PO SCH (07:49)
[2020-09-22] MEDS: guaiFENesin 600 MG TABCR PO SCH ×2 (07:49→21:38)
--- NOTE | 2020-09-22 11:14 | Surgery Progress Note ---
Date of Service September 22, 2020 Assessment & Plan (1) Colonic mass: Plan: Plan for surgery (most likely Thursday as per Dr. Alvarez's note). No new recommendations. Maintained on full liquids. Present on Admission?: Yes (2) Cough: Plan: Persistent dry hacking cough. Awaiting sputum culture Management as per medicine Present on Admission?: Yes Admission and Anticipated Discharge Date Admission Date: September 18, 2020 Subjective Main complaint is his dry cough. Frustrated that he feels this is not being addressed but it was what brought him to hospital. No abdominal complaints. Physical Exam Constitutional: WD/WN, vitals as above Cardiovascular: Rate/Rhythm: + irregularly irregular Gastrointestinal (Abdomen): Inspection/Auscultation: abdomen normal to inspection and normal bowel sounds; abdomen not distended Percussion/Palpation: abdomen soft; abdomen nontender Psychiatric: A+Ox3, euthymic affect Results & Data ([facility]) Vital Signs (Past 12 Hours) Vital Signs Temp Pulse Pulse Resp BP Pulse Ox 09/22/20 09:06 79 09/22/20 07:26 36.9 C 78 20 131/68 94 09/22/20 04:23 36.7 C 94 H 20 139/72 92 09/22/20 00:46 96 H 09/21/20 23:24 37.1 C 85 20 137/75 91 Laboratory Results Abnormal lab results 09/21/20 09/21/20 09/21/20 Range/Units 11:19 16:11 20:55 POC Glucose 175 H 217 H 242 H (70-99) mg/dl 09/22/20 Range/Units 07:24 POC Glucose 204 H (70-99) mg/dl
[2020-09-22] MEDS ORDERED: PHARMACY GLYCEMIC MGMT CONSULT SCH (11:58)
--- NOTE | 2020-09-22 12:05 | Pharmacy Report ---
Pharmacy Glycemic Short Note 2 - Date of Service September 22, 2020 - Glycemic Short BSG Results (Last 24 hours): 09/21/20 09/21/20 09/22/20 16:11 20:55 07:24 POC Glucose 217 H 242 H 204 H 09/22/20 11:28 POC Glucose 252 H OUTPATIENT ANTIDIABETIC REGIMEN: * Glipizide XL 10mg PO daily ASSESSMENT: * 85 year old male admitted with GI bleed, colonic mass, surgery planned likely for Thursday * Type 2 diabetic maintained on oral antidiabetic agents as an outpatient * Oral agents are not recommended for inpatient use d/t drug interactions, changing PO intake, and difficulty titrating for acute hyper/hypoglycemia. ADA recommends re-initiating outpatient oral agents 1-2 days prior to discharge if/when appropriate if they were held on admission. * Will hold oral agents for admission and utilize SQ basal bolus insulin regimen which is the recommended regimen for inpatient glycemic control. * Will initiate weight based insulin dosing for insulin yumiko patient and titrate based on BSG trends. * Patient has had 0 units of insulin since admission, blood sugars above goal, 175-252mg/dl in the past 24 hours PLAN FOR INPATIENT GLYCEMIC CONTROL: * Hold outpatient oral diabetes medications * Basal insulin * Lantus 0-10 units SQ BID (10 units for BSG > 140mg/dl) * Bolus insulin * NovoLog per scale ACHS or Q6hrs while NPO * Goal Range: Low 110 mg/dL - High 140 mg/dL * Correction Factor: 30 mg/dL/unit * Nutritional / Prandial insulin per carb ratio of 1 unit per 10 grams CHO consumed PLAN FOR DISCHARGE: * to be determined
[2020-09-22] MEDS ORDERED: GLUCAGON FOR INJ 1 MG VIAL SQ PRN (12:15)
[2020-09-22] MEDS ORDERED: DEXTROSE 50% 50 ML SYRINGE IV PRN (12:15)
[2020-09-22] MEDS ORDERED: GLUCOSE 10 TABS/TUBE PO PRN (12:15)
[2020-09-22] MEDS ORDERED: GLUCOSE 40% GEL 15 GM TUBE PO PRN (12:15)
[2020-09-22] MEDS: INSULIN ASPART 100 UNITS/ML 3 ML PEN SC SCH ×3 (13:35→21:39)
[2020-09-22] MEDS: INSULIN GLARGINE SOLOSTAR 100 UNITS/ML 3 ML PEN SC SCH ×2 (13:35→21:42)
--- NOTE | 2020-09-22 14:01 | XRay Report ---
XR chest 1V portable HISTORY: cough COMPARISON: Chest CT 09/20/2020. FINDINGS: No pneumothorax. No pleural effusions. The cardiac silhouette remains mildly enlarged. Innu merable calcified granulomas are again noted throughout the lungs. This remains unchanged. Patchy bib asilar densities persist. IMPRESSION: No change in the small patchy bibasilar densities, left greater than right. This favors a pneumonia a nd could be secondary to aspiration. ACT 112: Negative or not required by law. Electronically signed by: Armando Carpenter M.D. 09/22/2020 2:00 PM
[2020-09-22] MEDS: FAMOTIDINE 20 MG TAB PO SCH (21:36)
[2020-09-22] MEDS: FLUTICASONE PROPIONATE NA SPR 16 GM BTL NAE SCH (21:37)
[2020-09-22] MEDS: PANTOprazole 40 MG TAB PO SCH (21:59)
--- NOTE | 2020-09-22 22:54 | Hospitalist Progress Note ---
Date of Service September 22, 2020 Assessment & Plan (1) Acute GI bleeding: Plan: Dark red blood, does not appear to be melena. Hemoglobin improved after transfusion. Hemoglobin appears to be stable. appreciate input from GI Colonoscopy showed : Malignant partially obstructing tumor in the ascending colon and in the proximal ascending colon. Biopsied. - Malignant partially obstructing tumor in the transverse colon and in the mid transverse colon. Biopsied. - Non-bleeding internal hemorrhoids 4 mm hypodensity within the right hepatic lobe noted on CT SCAN. No signs of mets to chest. Appreciate input from surgery: will have surgery early next week. As per Alarcon and geriatric perioperative calculator: patient is 1.4% (low) risk for intermediate-high risk procedure for cardiac complications. will obtain echo in AM PPI BID IV (2) Cough: Plan: SUBACUTE FOR 7 DAYS will monitor. It appears it is improving with the flutter valve, does not appear to be infectious. will hold off antibiotics ordered flonase. (3) Acute pain of right knee: Plan: this appears to be a chronic problem, will montior (4) Urothelial carcinoma of bladder: Plan: urostomy on right flank. (5) Dyslipidemia: Plan: will resume home meds once able to take oral (6) Hypertension: Plan: will hold due to anemia (7) Permanent atrial fibrillation: Plan: will hold anticoagulation (8) Thrombocytopenia: Plan: history of above problem, will monitor (9) Acute blood loss anemia: Plan: secondary to GI bleed Admission and Anticipated Discharge Date Admission Date: September 18, 2020 Subjective Patient reports no significant change. Review of Systems Review of Systems: All systems reviewed & are unremarkable except as noted in HPI & below Physical Exam Physical Exam: Constitutional: WD/WN, vitals as above well developed and well nourished Eyes: PERRL, conjunctivae normal, anicteric sclerae ENMT: external ear and nose normal, oropharynx normal Neck: trachea midline, no thyromegaly Respiratory: normal respiratory effort, lungs clear to auscultation normal respiratory effort and + cough; no respiratory distress Cardiovascular: RRR, no murmur, no edema Rate/Rhythm: + irregularly irregular Gastrointestinal (Abdomen): normal bowel sounds, soft, nontender, no hepatosplenomegaly (right urostomy with bag) Skin: no rashes, warm and dry Neurologic: PERRL, EOMI, accommodation nl, no face palsy, no dysarthria Psychiatric: A+Ox3, euthymic affect Lymphatic: no cervical or axillary lymphadenopathy Results & Data Results & Data ([facility]) Vital Signs (Past 12 Hours) Vital Signs Temp Pulse Resp BP BP Pulse Ox 09/22/20 19:03 37.0 C 94 H 20 146/75 H 94 09/22/20 15:20 36.9 C 58 L 20 153/79 H 92 09/22/20 11:38 37.1 C 81 17 130/75 91 PG Care Time/CCT Total # of Minutes Spent Total Time Spent with Patient: Total time spent is greater than 50% in coordi nation of care (as documented) at patient's floor/unit and/or counseling patient: Coding Level of Care Code 65273 Subseq Hosp Care Lvl 2 Diagnoses Acute GI bleeding K92.2 Cough R05 Acute pain of right knee M25.561 Urothelial carcinoma of bladder C67.9 Dyslipidemia E78.5 Hypertension I10 Permanent atrial fibrillation I48.2 Thrombocytopenia D69.6 Acute blood loss anemia D62 Time Spent (min) 25
[2020-09-23] MEDS: ATORVASTATIN 40 MG TAB PO SCH (07:35)
[2020-09-23] MEDS: guaiFENesin 600 MG TABCR PO SCH ×2 (07:35→19:59)
[2020-09-23] MEDS: PANTOprazole 40 MG TAB PO SCH ×2 (07:35→20:00)
[2020-09-23] MEDS: FLUTICASONE PROPIONATE NA SPR 16 GM BTL NAE SCH ×2 (07:36→19:58)
[2020-09-23] MEDS: FAMOTIDINE 20 MG TAB PO SCH ×2 (07:36→19:59)
[2020-09-23] MEDS: INSULIN ASPART 100 UNITS/ML 3 ML PEN SC SCH ×4 (07:54→21:13)
[2020-09-23] MEDS: INSULIN GLARGINE SOLOSTAR 100 UNITS/ML 3 ML PEN SC SCH ×2 (08:05→21:13)
[2020-09-23 10:08] LABS: Basophils # (auto) 0.01 K/uL (0-0.2); Basophils % (auto) 0.1 %; Eosinophils # (auto) 0.07 K/uL (0-0.5); Eosinophils % (auto) 0.8 %; Hematocrit (blood only) 26.6 % (42-52); Hemoglobin 8.3 g/dL (14.0-18.0); Immature Granulocytes # (auto) 0.02 K/uL (0.00-0.02); Immature Granulocytes % (auto) 0.2 %; Lymphocytes # (auto) 0.75 K/uL (1.2-3.4); Lymphocytes % (auto) 8.3 %; Mean Corpuscular Hemoglobin 26.9 pg (25-34); Mean Corpuscular Hgb Conc 31.2 g/dL (32-36); Mean Corpuscular Volume 86.1 fL (80-100); Mean Platelet Volume 9.5 fL (7.4-10.4); Monocytes # (auto) 0.34 K/uL (0.11-0.59); Monocytes % (auto) 3.7 %; Neutrophils % (auto) 86.9 %; Platelet Count 188 K/uL (130-400); RDW Coefficient of Variation 15.7 % (11.5-14.5); RDW Standard Deviation 50.5 fL (36.4-46.3); Red Blood Count 3.09 M/uL (4.7-6.1); White Blood Count 9.09 K/uL (4.8-10.8)
[2020-09-23 10:31] LABS: Albumin Level 2.2 gm/dl (3.4-5.0); BUN Creatinine Ratio 14.9 (10-20); Calcium 7.9 mg/dl (8.5-10.1); Creatinine Clr Calc Pharmacy 41.7 ml/min; Est GFR (African American) 55.1 ml/min; Est GFR (Non-African American) 47.5 ml/min; Potassium 3.6 mmol/L (3.5-5.1)
[2020-09-23 10:33] LABS: Albumin Globulin Ratio 0.6 (0.9-2); Bilirubin,Total 0.5 mg/dl (0.2-1); Globulin 3.5 gm/dl (2.5-4.0); Total Protein 5.7 gm/dl (6.4-8.2)
--- NOTE | 2020-09-23 10:38 | Pharmacy Report ---
Pharmacy Glycemic Short Note 2 - Date of Service September 23, 2020 - Glycemic Short BSG Results (Last 24 hours): 09/22/20 09/22/20 09/22/20 11:28 15:53 20:21 Glucose POC Glucose 252 H 220 H 244 H 09/23/20 09/23/20 07:19 09:55 Glucose 267 H POC Glucose 141 H OUTPATIENT ANTIDIABETIC REGIMEN: * Glipizide XL 10mg PO daily ASSESSMENT: 09/23/20 * Pt has received 39 units of insulin over the past 24hrs * 20 units of basal with Lantus * 19 units of bolus with NovoLog * BSGs 141-252 mg/dl * Patient's blood sugars improving with insulin starting yesterday at lunch time * Fasting 141mg/dl - continue Lantus * Blood sugars in 200s yesterday d/t just starting insulin, and needing more CR, tighten 09/22/20 * 85 year old male admitted with GI bleed, colonic mass, surgery planned likely for Thursday * Type 2 diabetic maintained on oral antidiabetic agents as an outpatient * Oral agents are not recommended for inpatient use d/t drug interactions, changing PO intake, and difficulty titrating for acute hyper/hypoglycemia. ADA recommends re-initiating outpatient oral agents 1-2 days prior to discharge if/when appropriate if they were held on admission. * Will hold oral agents for admission and utilize SQ basal bolus insulin regimen which is the recommended regimen for inpatient glycemic control. * Will initiate weight based insulin dosing for insulin yumiko patient and titrate based on BSG trends. * Patient has had 0 units of insulin since admission, blood sugars above goal, 175-252mg/dl in the past 24 hours PLAN FOR INPATIENT GLYCEMIC CONTROL: * Hold outpatient oral diabetes medications * Basal insulin * Lantus 0-10 units SQ BID (10 units for BSG > 110mg/dl) * Bolus insulin * NovoLog per scale ACHS or Q6hrs while NPO * Goal Range: Low 110 mg/dL - High 140 mg/dL * Correction Factor: 30 mg/dL/unit * tighten: Nutritional / Prandial insulin per carb ratio of 1 unit per 7 grams CHO consumed PLAN FOR DISCHARGE: * to be determined
--- NOTE | 2020-09-23 10:56 | XRay Report ---
XR chest 2V PA/lateral CLINICAL HISTORY: hypoxia COMPARISON STUDY: Chest CT September 20, 2020. Chest radiograph September 22, 2020. FINDINGS: Innumerable calcifications within the lungs are noted. Bibasilar opacities, greater on the left, are best shown on lateral projection. Slight progression is noted. Cardiomediastinal silhouette is stable. There is no pneumothorax. There is no definite pleural effusion IMPRESSION: Mild progression of left lower lobe consolidation which favors pneumonia. Suspected mild right lower lobe consolidation, similar to prior exam. ACT 112: Negative or not required by law. Electronically signed by: Den Lanza M.D. 09/23/2020 10:55 AM
--- NOTE | 2020-09-23 11:07 | Surgery Progress Note ---
Date of Service September 23, 2020 Assessment & Plan (1) Colonic mass: Plan: Plan for surgery (most likely Thursday/ Thursday as per Dr. Alvarez's note). No new recommendations. Maintained on full liquids. Will make npo after midnight in case surgery is tomorrow (but unlikely given possible left lower lobe pneumonia). (2) Cough: Plan: Persistent dry hacking cough. Awaiting sputum culture CXR suggestive of progressive left lower lobe pneumonia. Ct chest prior showed mucus plugging in left lower lobe. Management as per medicine. May delay surgery until starts to improve - defer decision to Dr. Alvarez. Admission and Anticipated Discharge Date Admission Date: September 18, 2020 Subjective Still with persistent cough. CXR shows progressive LL lobe consolidation, sputum culture pending. Getting echo now. No abdominal complaints. Physical Exam Constitutional: WD/WN, vitals as above Gastrointestinal (Abdomen): Inspection/Auscultation: abdomen normal to inspection and normal bowel sounds; abdomen not distended Percussion/Palpation: abdomen soft; abdomen nontender Psychiatric: A+Ox3, euthymic affect Results & Data ([facility]) Vital Signs (Past 12 Hours) Vital Signs Temp Pulse Pulse Resp BP Pulse Ox 09/23/20 07:38 37.6 C H 83 17 144/75 H 90 09/23/20 07:00 82 09/23/20 04:28 37 C 81 14 148/87 H 90 09/23/20 01:43 87 09/22/20 23:48 37.2 C 89 14 122/71 91 Laboratory Results 09/23/20 09/23/20 09/23/20 Range/Units 09:55 09:55 07:19 WBC 9.09 (4.8-10.8) K/uL RBC 3.09 L (4.7-6.1) M/uL Hgb 8.3 L (14.0-18.0) g/dL Hct 26.6 L (42-52) % MCV 86.1 (80-100) fL MCH 26.9 (25-34) pg MCHC 31.2 L (32-36) g/dL RDW Std Deviation 50.5 H (36.4-46.3) fL RDW Coeff of Tasneem 15.7 H (11.5-14.5) % Plt Count 188 (130-400) K/uL MPV 9.5 (7.4-10.4) fL Immature Gran % (Auto) 0.2 % Neut % (Auto) 86.9 % Lymph % (Auto) 8.3 % Montague % (Auto) 3.7 % Eos % (Auto) 0.8 % Baso % (Auto) 0.1 % Neut # (Auto) 7.90 H (1.4-6.5) K/uL Lymph # (Auto) 0.75 L (1.2-3.4) K/uL [place] # (Auto) 0.34 (0.11-0.59) K/uL Eos # (Auto) 0.07 (0-0.5) K/uL Baso # (Auto) 0.01 (0-0.2) K/uL Immature Gran # (Auto) 0.02 (0.00-0.02) K/uL Sodium 137 (136-145) mmol/L Potassium 3.6 (3.5-5.1) mmol/L Chloride 108 H (98-107) mmol/L Carbon Dioxide 21 (21-32) mmol/L Anion Gap 8.0 (3-11) BUN 20 H (7-18) mg/dl Creatinine 1.35 (0.6-1.4) mg/dl Est Cr Clr Drug Dosing 41.7 ml/min Est GFR ( Amer) 55.1 ml/min Est GFR (Non-Af Amer) 47.5 ml/min BUN/Creatinine Ratio 14.9 (10-20) Glucose 267 H (70-99) mg/dl POC Glucose 141 H (70-99) mg/dl Calcium 7.9 L (8.5-10.1) mg/dl Total Bilirubin 0.5 (0.2-1) mg/dl AST 13 L (15-37) U/L ALT 18 (12-78) U/L Alkaline Phosphatase 74 (45-117) U/L Total Protein 5.7 L (6.4-8.2) gm/dl Albumin 2.2 L (3.4-5.0) gm/dl Globulin 3.5 (2.5-4.0) gm/dl Albumin/Globulin Ratio 0.6 L (0.9-2) 09/22/20 09/22/20 09/22/20 Range/Units 20:21 15:53 11:28 WBC (4.8-10.8) K/uL RBC (4.7-6.1) M/uL Hgb (14.0-18.0) g/dL Hct (42-52) % MCV (80-100) fL MCH (25-34) pg MCHC (32-36) g/dL RDW Std Deviation (36.4-46.3) fL RDW Coeff of Tasneem (11.5-14.5) % Plt Count (130-400) K/uL MPV (7.4-10.4) fL Immature Gran % (Auto) % Neut % (Auto) % Lymph % (Auto) % [place] % (Auto) % Eos % (Auto) % Baso % (Auto) % Neut # (Auto) (1.4-6.5) K/uL Lymph # (Auto) (1.2-3.4) K/uL Montague # (Auto) (0.11-0.59) K/uL Eos # (Auto) (0-0.5) K/uL Baso # (Auto) (0-0.2) K/uL Immature Gran # (Auto) (0.00-0.02) K/uL Sodium (136-145) mmol/L Potassium (3.5-5.1) mmol/L Chloride (98-107) mmol/L Carbon Dioxide (21-32) mmol/L Anion Gap (3-11) BUN (7-18) mg/dl Creatinine (0.6-1.4) mg/dl Est Cr Clr Drug Dosing ml/min Est GFR ( Amer) ml/min Est GFR (Non-Af Amer) ml/min BUN/Creatinine Ratio (10-20) Glucose (70-99) mg/dl POC Glucose 244 H 220 H 252 H (70-99) mg/dl Calcium (8.5-10.1) mg/dl Total Bilirubin (0.2-1) mg/dl AST (15-37) U/L ALT (12-78) U/L Alkaline Phosphatase (45-117) U/L Total Protein (6.4-8.2) gm/dl Albumin (3.4-5.0) gm/dl Globulin (2.5-4.0) gm/dl Albumin/Globulin Ratio (0.9-2)
--- NOTE | 2020-09-23 13:12 | XCELERA ---
[id number]
[2020-09-23] MEDS: cefTRIAXone SODIUM 2,000 MG in DEXTROSE 5% 50 ML IV SCH (13:56)
[2020-09-23] MEDS ORDERED: AZITHROMYCIN 500 MG in DEXTROSE 5% 250 ML IV ONE (14:30)
--- NOTE | 2020-09-23 20:36 | Hospitalist Progress Note ---
Date of Service September 23, 2020 Assessment & Plan (1) Acute GI bleeding: Plan: Dark red blood, does not appear to be melena. Hemoglobin improved after transfusion. Hemoglobin appears to be stable. appreciate input from GI Colonoscopy showed : Malignant partially obstructing tumor in the ascending colon and in the proximal ascending colon. Biopsied. - Malignant partially obstructing tumor in the transverse colon and in the mid transverse colon. Biopsied. - Non-bleeding internal hemorrhoids 4 mm hypodensity within the right hepatic lobe noted on CT SCAN. No signs of mets to chest. Appreciate input from surgery: will have surgery early next week. As per Alarcon and geriatric perioperative calculator: patient is 1.4% (low) risk for intermediate-high risk procedure for cardiac complications. will obtain echo in AM PPI BID IV (2) Community acquired bacterial pneumonia: Plan: X-ray of chest shows: Mild progression of left lower lobe consolidation which favors pneumonia. Suspected mild right lower lobe consolidation, similar to prior exam. May benefit from speech therapy. Possibility of aspiration, holding aerobic covergae for now. This may delay procedure. (3) Cough: Plan: SUBACUTE FOR 7 DAYS prior to hospital stay. will monitor. It appears it is improving with the flutter valve, does not appear to be infectious. will order antibiotics as stated above. ordered flonase. (4) Acute pain of right knee: Plan: this appears to be a chronic problem, will lee (5) Urothelial carcinoma of bladder: Plan: urostomy on right flank. (6) Dyslipidemia: Plan: will resume home meds once able to take oral (7) Hypertension: Plan: will hold due to anemia (8) Permanent atrial fibrillation: Plan: will hold anticoagulation (9) Thrombocytopenia: Plan: history of above problem, will monitor (10) Acute blood loss anemia: Plan: secondary to GI bleed Admission and Anticipated Discharge Date Admission Date: September 18, 2020 Subjective 85 yo male reports feeling well. He continues to have a persistent cough. Review of Systems Review of Systems: All systems reviewed & are unremarkable except as noted in HPI & below Physical Exam Physical Exam: Constitutional: WD/WN, vitals as above well developed and well nourished Eyes: PERRL, conjunctivae normal, anicteric sclerae ENMT: external ear and nose normal, oropharynx normal Neck: trachea midline, no thyromegaly Respiratory: normal respiratory effort, lungs clear to auscultation normal respiratory effort and + cough; no respiratory distress Cardiovascular: RRR, no murmur, no edema Rate/Rhythm: + irregularly irregular Gastrointestinal (Abdomen): normal bowel sounds, soft, nontender, no hepatosplenomegaly (right urostomy with bag) Skin: no rashes, warm and dry Neurologic: PERRL, EOMI, accommodation nl, no face palsy, no dysarthria Psychiatric: A+Ox3, euthymic affect Lymphatic: no cervical or axillary lymphadenopathy Results & Data Results & Data ([facility]) Vital Signs (Past 12 Hours) Vital Signs Temp Pulse Resp BP BP Pulse Ox 09/23/20 19:28 37.0 C 43 L 16 119/54 L 97 09/23/20 15:16 36.9 C 89 18 127/73 95 09/23/20 11:41 36.9 C 74 16 121/52 L 96 PG Care Time/CCT Total # of Minutes Spent Total Time Spent with Patient: Total time spent is greater than 50% in coordination of care (as documented) at patient's floor/unit and/or counseling patient: Coding Level of Care Code 50624 Subseq Hosp Care Lvl 3 Diagnoses Acute GI bleeding K92.2 Cough R05 Acute pain of right knee M25.561 Urothelial carcinoma of bladder C67.9 Dyslipidemia E78.5 Hypertension I10 Permanent atrial fibrillation I48.2 Thrombocytopenia D69.6 Acute blood loss anemia D62 Community acquired bacterial pneumonia J15.9 Time Spent (min) 35 Comment updated family.
--- NOTE | 2020-09-24 06:26 | Surgery Progress Note ---
Date of Service September 24, 2020 Assessment & Plan (1) Colonic mass: Plan: Reviewed the findings over the weekend including possibility of pneumonia Initially a plan to proceed with surgery after cardiac and pulmonary clearance for tomorrow but given the circumstances that have developed I would wait until the pneumonia has cleared up and when cleared by medicine to proceed accordingly We will discuss with the medical service further this morning We will continue with the present full liquid diet and supplement Admission and Anticipated Discharge Date Admission Date: September 18, 2020 Subjective Sleeping at this time comfortably did not awaken no obvious cough appreciated Results & Data ([facility]) Vital Signs (Past 12 Hours) Vital Signs Temp Pulse Pulse Resp BP Pulse Ox 09/24/20 03:23 36.8 C 77 20 138/80 95 09/24/20 00:15 80 09/23/20 22:15 37.2 C 53 L 18 99/45 L 97 09/23/20 19:28 37.0 C 43 L 16 119/54 L 97 PG Care Time/CCT Total # of Minutes Spent Total Time Spent with Patient: Total time spent is greater than 50% in coordination of care (as documented) at patient's floor/unit and/or counseling patient: Coding Level of Care Code 82666 Subseq Hosp Care Lvl 2 Diagnoses Colonic mass K63.89
--- NOTE | 2020-09-24 07:30 | Hospitalist Progress Note ---
Date of Service September 24, 2020 Assessment & Plan (1) Acute GI bleeding: Plan: Dark red blood per rectum, does not appear to be melena. s/p 2 units PRBC appreciate input from GI Colonoscopy showed : Malignant partially obstructing tumor in the ascending colon and in the proximal ascending colon. Biopsied. - Malignant partially obstructing tumor in the transverse colon and in the mid transverse colon. Biopsied. - Non-bleeding internal hemorrhoids 4 mm hypodensity within the right hepatic lobe noted on CT SCAN. No signs of mets to chest. Appreciate input from surgery: surgery on hold due to pneumonia, pt improving will ask anesthesia to see 09/25 and plan on surgery later the week once has a few more days of antibiotics As per Alarcon and geriatric perioperative calculator: patient is 1.4% (low) risk for intermediate-high risk procedure for cardiac complications. Echo EF normal no RWMA PPI BID IV (2) Community acquired bacterial pneumonia: Plan: X-ray of chest shows: Mild progression of left lower lobe consolidation which favors pneumonia. Suspected mild right lower lobe consolidation, similar to prior exam. May benefit from speech therapy. on azithromycin and ceftriaxone (3) Acute pain of right knee: Plan: this appears to be a chronic problem, will lee (4) Diabetes mellitus with kidney complication: Plan: basal bolus insuin and glycemic consult (5) Urothelial carcinoma of bladder: Plan: urostomy on right flank. (6) Dyslipidemia: Plan: will resume home meds once able to take oral (7) Hypertension: Plan: will hold due to anemia (8) Permanent atrial fibrillation: Plan: will hold anticoagulation (9) Thrombocytopenia: Plan: history of above problem, will monitor (10) Acute blood loss anemia: Plan: secondary to GI bleed Admission and Anticipated Discharge Date Admission Date: September 18, 2020 Subjective pt has improvement in his coughing, no real abdominal pain. no melena , is now on room air Review of Systems Review of Systems: Mild distress and fatigue no headache, no visual changes no speech or swallowing issues no chest pain, pressure or palpitations Also mild coughing productive of sputum some expiratory wheezes no abdominal pain, nausea or vomiting, diarrhea or constipation no dysuria, hematuria or frequency no focal joint pain or swelling no back pain, CVA tenderness or radicular pain no bruising, bleeding or rashes no focal signs of weakness or numbness or altered sensation no complaints of anxiety or depression.. Physical Exam Physical Exam: The patient appeared in no significant distress Vital signs as documented. Head exam is normocephalic atraumatic Neck is without JVD, thyromegaly, or carotid bruits. Lungs are worse at the bases wheezes at the apex Cardiac exam, Rhythm is regular.. No murmurs, rubs or gallops. Abdominal exam reveals normal bowel sounds, soft non tender, no masses Extremities are nonedematous and both pedal pulses are present Neurologic exam is alert and oriented, no focal loss of strength or sensation Skin is without bruises or rashes Psychologically is without concerns for anxiety or depression Results & Data Results & Data ([facility]) Vital Signs (Past 12 Hours) Vital Signs Temp Pulse Pulse Resp BP Pulse Ox 09/24/20 03:23 98.2 F 77 20 138/80 95 09/24/20 00:15 80 09/23/20 22:15 99.0 F 53 L 18 99/45 L 97 09/23/20 19:28 98.6 F 43 L 16 119/54 L 97 PG Care Time/CCT Total # of Minutes Spent Total Time Spent with Patient: Total time spent is greater than 50% in coordination of care (as documented) at patient's floor/unit and/or counseling patient: Coding Level of Care Code 89874 Subseq Hosp Care Lvl 2 Diagnoses Acute GI bleeding K92.2 Community acquired bacterial pneumonia J15.9 Acute pain of right knee M25.561 Urothelial carcinoma of bladder C67.9 Dyslipidemia E78.5 Hypertension I10 Permanent atrial fibrillation I48.2 Thrombocytopenia D69.6 Acute blood loss anemia D62 Diabetes mellitus with kidney complication E11.29
[2020-09-24] MEDS: FAMOTIDINE 20 MG TAB PO SCH ×2 (08:12→20:10)
[2020-09-24] MEDS: ATORVASTATIN 40 MG TAB PO SCH (08:12)
[2020-09-24] MEDS: FLUTICASONE PROPIONATE NA SPR 16 GM BTL NAE SCH ×2 (08:12→20:06)
[2020-09-24] MEDS: guaiFENesin 600 MG TABCR PO SCH ×2 (08:12→20:11)
[2020-09-24] MEDS: PANTOprazole 40 MG TAB PO SCH ×2 (08:12→20:11)
[2020-09-24] MEDS: INSULIN GLARGINE SOLOSTAR 100 UNITS/ML 3 ML PEN SC SCH ×2 (08:13→20:42)
[2020-09-24] MEDS: cefTRIAXone SODIUM 2,000 MG in DEXTROSE 5% 50 ML IV SCH (08:14)
[2020-09-24] MEDS: INSULIN ASPART 100 UNITS/ML 3 ML PEN SC SCH ×4 (08:16→20:40)
[2020-09-25] MEDS: cefTRIAXone SODIUM 2,000 MG in DEXTROSE 5% 50 ML IV SCH (08:02)
[2020-09-25] MEDS: INSULIN GLARGINE SOLOSTAR 100 UNITS/ML 3 ML PEN SC SCH ×2 (08:03→20:20)
[2020-09-25] MEDS: ATORVASTATIN 40 MG TAB PO SCH (08:06)
[2020-09-25] MEDS: FAMOTIDINE 20 MG TAB PO SCH ×2 (08:06→20:26)
[2020-09-25] MEDS: PANTOprazole 40 MG TAB PO SCH ×2 (08:06→20:25)
[2020-09-25] MEDS: guaiFENesin 600 MG TABCR PO SCH ×2 (08:06→20:26)
[2020-09-25] MEDS: FLUTICASONE PROPIONATE NA SPR 16 GM BTL NAE SCH ×2 (08:07→20:24)
[2020-09-25] MEDS: INSULIN ASPART 100 UNITS/ML 3 ML PEN SC SCH ×4 (08:07→20:19)
--- NOTE | 2020-09-25 10:37 | Surgery Progress Note ---
Date of Service September 25, 2020 Assessment & Plan (1) Colonic mass: Plan: Will have tentatively placed patient on the OR schedule for this upcoming pending patient's medical clearance He is currently on room air, is afebrile, still with an intermittent cough Continue on liquid diet for now Will discuss with our Urology colleagues the possibility of placing ureteral stents day of surgery given history of cystectomy and ileal conduit Admission and Anticipated Discharge Date Admission Date: September 18, 2020 Subjective Patient still with cough, but says it is improved. Offers no other complaints. Spoke with him about tentatively placing him on the OR for this , he is disappointed it's not sooner but understands. Physical Exam Physical Exam: awake/alert Constitutional: no acute distress Respiratory: On room air. Intermittent cough Results & Data ([facility]) Vital Signs (Past 12 Hours) Vital Signs Temp Pulse Pulse Resp BP BP Pulse Ox 09/25/20 07:39 36.8 C 67 18 133/63 92 09/25/20 04:36 37.4 C 80 18 145/74 H 92 09/25/20 02:15 78 09/24/20 23:19 36.7 C 79 18 126/70 95 PG Care Time/CCT Total # of Minutes Spent Total Time Spent with Patient: Total time spent is greater than 50% in coordination of care (as documented) at patient's floor/unit and/or counseling patient: Coding Level of Care Code 41807 Subseq Hosp Care Lvl 1 Diagnoses Colonic mass K63.89
--- NOTE | 2020-09-25 11:27 | Pharmacy Report ---
Pharmacy Glycemic Short Note 2 - Date of Service September 25, 2020 - Glycemic Short BSG Results (Last 24 hours): 09/24/20 09/24/20 09/25/20 16:36 20:25 07:20 POC Glucose 160 H 234 H 128 H OUTPATIENT ANTIDIABETIC REGIMEN: * Glipizide XL 10mg PO daily ASSESSMENT: 09/25/20 * Patient's BSGs yesterday were [phone] mg/dL * Fasting today was 128 mg/dL. * Patient received Lantus 20 units + Novolog 44 units (total of 64 units of insulin). * Fasting within goal range. Continue Lantus 10 units BID. * Post-prandial BSGs trend upwards. Tighten carbohydrate ratio as appears patient is carbohydrate sensitive. 09/23/20 * Pt has received 39 units of insulin over the past 24hrs * 20 units of basal with Lantus * 19 units of bolus with NovoLog * BSGs 141-252 mg/dl * Patient's blood sugars improving with insulin starting yesterday at lunch time * Fasting 141mg/dl - continue Lantus * Blood sugars in 200s yesterday d/t just starting insulin, and needing more CR, tighten 09/22/20 * 85 year old male admitted with GI bleed, colonic mass, surgery planned likely for Thursday * Type 2 diabetic maintained on oral antidiabetic agents as an outpatient * Oral agents are not recommended for inpatient use d/t drug interactions, c hanging PO intake, and difficulty titrating for acute hyper/hypoglycemia. ADA recommends re-initiating outpatient oral agents 1-2 days prior to discharge if/when appropriate if they were held on admission. * Will hold oral agents for admission and utilize SQ basal bolus insulin regimen which is the recommended regimen for inpatient glycemic control. * Will initiate weight based insulin dosing for insulin yumiko patient and titrate based on BSG trends. * Patient has had 0 units of insulin since admission, blood sugars above goal, 175-252mg/dl in the past 24 hours PLAN FOR INPATIENT GLYCEMIC CONTROL: * Hold outpatient oral diabetes medications * Basal insulin * Lantus 0-10 units SQ BID (10 units for BSG > 110mg/dl) * Bolus insulin * NovoLog per scale ACHS or Q6hrs while NPO * Goal Range: Low 110 mg/dL - High 140 mg/dL * Correction Factor: 15 mg/dL/unit * tighten: Nutritional / Prandial insulin per carb ratio of 1 unit per 4 grams CHO consumed PLAN FOR DISCHARGE: * to be determined- ordered HbA1C
--- NOTE | 2020-09-25 15:51 | Anesthesiology Consultation ---
Date of Service September 25, 2020 The patient is to have a colectomy by Dr. Alvarez. He has multiple medical issues including pneumonia, anemia secondary to gastrointestinal bleeding, poorly controlled DM, MGUS, hypertension, dyslipidemia, and kidney disease. I cared for the patient one week ago for an EGD and he was noted to have a wet cough at that time. His cough is now slightly improved and the patient states that he feels better today. His pneumonia is improving but has not fully resolved. We will confer with the medicine team to determine when he is appropriate for surgery. Assessment & Plan (1) Encounter for pre-operative examination: Chart Review Chart Review: Pending: Refer to Additional Notes / Consult section (pending resolution of pnuemonia) and Patient NOT seen in Pre Admission Testing Consults Requested none medicine is following History Surgery Operation Date: 09/19/20 17:00 Proposed Procedures p Colonoscopy EGD Dr. Sebastien De Luna. Case, DO Operation Date: 09/20/20 17:00 Proposed Procedures p Colonoscopy EGD Dr. Sebastien De Luna. Case, DO Operation Date: 09/27/20 08:40 Proposed Procedures p Open Subtotal Colectomy - Yohan Alvarez MD, FACS Height/Weight Height: 6 ft 1 in Weight: 71.1 kg Allergies Allergy/AdvReac Type Severity Reaction Status Date / Time No Known Drug Allergies Allergy Verified 09/20/20 15:40 Medications Home Medications Medication Instructions Recorded Confirmed Last Taken acetaminophen 500 mg tablet 500 mg PO QAM tab 08/19/18 09/18/20 09/18/20 (Acetaminophen Extra Strength) cholecalciferol (vitamin D3) 25 1,000 units PO QAM cap 10/19/18 09/18/20 09/18/20 mcg (1,000 unit) capsule (Vitamin D3) coenzyme Q10 100 mg capsule (Co 100 mg PO QAM #30 cap 10/19/18 09/18/20 09/18/20 Q-10) rzvtkpwe-zet-vdubai 5 mg-zeaxanth 1 cap PO QAM cap 10/19/18 09/18/20 09/18/20 1 mg-bilberry 7.5 mg-herbal capsule (Macular Health Formula) polyethylene glycol 3350 17 17 g PO HS gm 08/13/19 07/13/21 07/12/21 gram/dose oral powder (Miralax) cyanocobalamin (vitamin B-12) 100 0 mcg PO QAM tab 10/25/19 09/18/20 Unknown mcg tablet (Vitamin B-12) garlic 1,000 mg capsule (garlic 1,000 mg PO QAM cap 10/25/19 09/18/20 09/18/20 oil) apixaban 2.5 mg tablet (Eliquis) 2.5 mg PO BID #180 tab 01/11/20 09/18/20 09/18/20 lancets (OneTouch UltraSoft #100 ea 03/21/20 05/30/20 Unknown Lancets) blood sugar diagnostic (OneTouch See Rx Instructions .ROUTE 04/13/20 05/30/20 Unknown Ultra Blue Test Strip) .COMPLEX #100 strip adhesive remover (Uni-Solve #240 ml 07/10/20 Unknown Adhesive Remover) drainage bag 2,000 mL #6 ea 07/10/20 Unknown miscellaneous medical supply See Rx Instructions .ROUTE 07/10/20 Unknown .COMPLEX #1 ea miscellaneous medical supply See Rx Instructions .ROUTE 07/10/20 Unknown .COMPLEX #30 ea miscellaneous medical supply See Rx Instructions .ROUTE 07/10/20 Unknown .COMPLEX #50 ea ostomy supplies (Kami Cohesive #20 ea 07/10/20 Unknown Seals) ostomy supplies 1 3/4" (Carmen-Fit #60 ea 07/10/20 Unknown Natura Urostomy Pouch) amlodipine 5 mg tablet (Norvasc) 5 mg PO QAM 09/18/20 09/18/20 09/18/20 atorvastatin 40 mg tablet (Lipitor) 40 mg PO QAM 09/18/20 09/18/20 09/18/20 fexofenadine 180 mg tablet 180 mg PO DAILY PRN 09/18/20 09/18/20 09/18/20 (Ally Allergy) glipizide 10 mg tablet, extended 10 mg PO QAM 09/18/20 09/18/20 09/18/20 release 24 hr (Glucotrol XL) glucosamine sulf dipot 1 cap PO QAM 09/18/20 09/18/20 09/18/20 chlr,msm,chond 550 mg-C 30 mg-dylan 1 mg capsule (Glucosamine Chondroitin) guaifenesin 1,200 mg tablet, 1,200 mg PO BID 09/18/20 09/18/20 09/18/20 extended release 12 hr (Mucinex) lisinopril 10 mg tablet (Zestril) 10 mg PO QAM 09/18/20 09/18/20 09/18/20 psyllium 1 packet PO QAM 09/18/20 09/18/20 09/18/20 Active Medications Generic Name Dose Route Start Last Admin Trade Name Bill PRN Reason Stop Dose Admin Atorvastatin Calcium 40 mg 09/19/20 09:00 09/25/20 08:06 Atorvastatin 40 Mg Tab PO 10/19/20 08:59 40 mg QAM BERE Administration Famotidine 20 mg 09/22/20 21:00 09/25/20 08:06 Famotidine 20 Mg Tab PO 10/22/20 20:59 20 mg BID BERE Administration Fluticasone Propionate 1 sprays 09/22/20 21:00 09/25/20 08:07 Fluticasone Propionate Na Spr 16 Gm Btl DANDY 10/22/20 20:59 1 sprays BID BERE Administration Guaifenesin 600 mg 09/19/20 09:00 09/25/20 08:06 Guaifenesin 600 Mg Tabcr PO 10/19/20 08:59 600 mg Q12 BERE Administration Sodium Chloride 1,000 mls @ 100 mls/hr 09/18/20 14:00 09/24/20 09:29 Nss 1000ml IV 10/18/20 13:59 Infused .Q10H BERE Infusion Ceftriaxone Sodium 2,000 mg/ 70 mls @ 100 mls/hr 09/23/20 13:30 09/25/20 08:46 Dextrose IV 09/30/20 13:29 Infused DAILY BERE Infusion Protocol Insulin Aspart 0 units 09/22/20 12:15 09/25/20 12:08 Insulin Aspart 100 Units/Ml 3 Ml Pen SC 10/22/20 12:14 24 units ACHS BERE Administration Protocol Insulin Glargine 0 units 09/22/20 12:15 09/25/20 08:03 Insulin Glargine Solostar 100 Units/Ml 3 Ml Pen SC 10/22/20 12:14 10 units BID BERE Administration Protocol Levalbuterol HCl 0.63 mg 09/19/20 05:17 09/19/20 06:04 Levalbuterol Hcl 0.63 Mg/3 Ml Neb NEB 10/19/20 06:59 0.63 mg Q6R PRN Administration SOB/wheeze Pantoprazole Sodium 40 mg 09/22/20 21:00 09/25/20 08:06 Pantoprazole 40 Mg Tab PO 10/22/20 20:59 40 mg BID BERE Administration NPO Date Last Intake of Fluids: 09/19/20 Time Last Intake of Fluids: 11:59 Last Intake of Fluids Comment: prep-go lytly. 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 Stage III chronic kidney disease Thrombocytopenia Urothelial carcinoma of bladder May 2010 Venous insufficiency Vitamin D deficiency Past Family History Family History Father Myocardial infarction Denies family history of Ovarian cancer Prostate cancer Breast cancer Colorectal cancer Past Surgical History Surgical History History of total cystectomy May 2010 Social History Smoking Status: Former smoker tobacco type: cigarettes Hx Alcohol Use: Yes Alcohol type: beer Alcohol Intake Frequency Comment: 2-3/week Hx Substance Use: No Physical Exam Vital Signs Last Vital Signs Temp 36.6 C 09/25/20 11:50 Pulse 81 09/25/20 11:50 Resp 19 09/25/20 11:50 BP 121/72 09/25/20 11:50 Pulse Ox 91 09/25/20 11:50 ENMT Mouth: + dental caries and + poor dentition; no TMJ abnormality Thyromental Distance: > or= 3.5 Finger Breadths Mallampati Class: II Neck normal visual inspection Respiratory normal respiratory effort and + cough (slight wet ) Auscultation: + diminished lung sounds and + rhonchi (bases) Cardiovascular Rate/Rhythm: regular rate; + abnormal rhythm Musculoskeletal Spine: no pain with cervical ROM Skin + lesion (bruises on arms) Neurologic moves all extremities Psychiatric Orientation: alert and oriented x 3 Testing Laboratory Results 09/23/20 09:55 09/23/20 09:55 PT 10.9 Seconds (9.0-12.0) 09/20/20 17:52 INR 1.1 (0.9-1.1) 09/20/20 17:52 Urine Color Yellow 09/18/20 18:30 Urine Appearance Clear (Clear) 09/18/20 18:30 Urine pH 6.5 (4.5-7.5) 09/18/20 18:30 Ur Specific [place] 1.009 (1.000-1.030) 09/18/20 18:30 Urine Protein Negative (Negative) 09/18/20 18:30 Urine Glucose (UA) Negative (Negative) 09/18/20 18:30 Urine Ketones Negative (Negative) 09/18/20 18:30 Urine Nitrite Positive (Negative) A 09/18/20 18:30 Ur Leukocyte Esterase Trace (Negative) H 09/18/20 18:30 Urine WBC (Auto) 10-30 /hpf (0-5) H 09/18/20 18:30 Urine RBC (Auto) 0-4 /hpf (0-4) 09/18/20 18:30 U Hyaline Cast (Auto) 1-5 /lpf (0-5) 09/18/20 18:30 U Epithel Cells (Auto) >30 /lpf (0-5) H 09/18/20 18:30 Urine Bacteria (Auto) 1+ (Negative) H 09/18/20 18:30 Blood Type A Negative 09/18/20 12:13 Antibody Screen NEGATIVE 09/18/20 12:13 09/22/20 Unknown Gram Stain - Final Sputum, Expectorated Sputum Culture - Final Heavy normal shellie. 09/18/20 09:48 Aerobic Blood Culture - Final Blood No growth in Aerobic bottle after 5 days. Anaerobic Blood Culture - Final No growth in Anaerobic bottle after 5 days. 09/18/20 09:12 Aerobic Blood Culture - Final Blood No growth in Aerobic bottle after 5 days. Anaerobic Blood Culture - Final No growth in Anaerobic bottle after 5 days. 09/18/20 18:30 Urine Culture - Final Urine,Clean Catch More than three types of organisms present, all high counts. Repeat collection recommended. No further identifications or sensitivities to follow. 09/25/20 09/25/20 11:26 07:20 POC Glucose 283 H 128 H Electrocardiogram Date: 09/18/20 SR with 1st degree AV block, multiple PVCs possible bigeminy, rate 96 Chest X-Ray Date: 09/18/20 XR chest 2V PA/lateral HISTORY: cough COMPARISON: Chest 10/18/2017. FINDINGS: No pneumothorax. No pleural effusions. The lungs remain hyperexpanded. The cardiac silhouette is mildly enlarged. No new focal lung consolidations to suggest pneumonia. No evidence for pulmonary edema. Extensive calcific granulomas are again seen throughout the lungs. This is similar to the prior study. IMPRESSION: 1. No new focal lung consolidations to suggest pneumonia. 2. Innumerable calcified granulomas are again noted throughout the lungs. ACT 112: Negative or not required by law. Electronically signed by: Armando Carpenter M.D. 09/18/2020 11:21 AM Dictated: 09/18/20 1120 Echocardiogram Date: 09/23/20 EF: 55-60 LV Function: normal Other Findings: + LVH (mild)
[2020-09-25] MEDS ORDERED: INSULIN GLARGINE SOLOSTAR 100 UNITS/ML 3 ML PEN SC ONE (20:30)
--- NOTE | 2020-09-25 20:51 | Hospitalist Progress Note ---
Date of Service September 25, 2020 Assessment & Plan (1) Acute GI bleeding: Plan: Dark red blood per rectum s/p 2 units PRBC Colonoscopy showed : Malignant partially obstructing tumor in the ascending colon and in the proximal ascending colon. Biopsied. - Malignant partially obstructing tumor in the transverse colon and in the mid transverse colon. Biopsied. - Non-bleeding internal hemorrhoids 4 mm hypodensity within the right hepatic lobe noted on CT SCAN. No signs of mets to chest. Appreciate input from surgery: surgery on hold due to pneumonia, plannning on surgery on which is reasonable. As per Alarcon and geriatric perioperative calculator: patient is 1.4% (low) risk for intermediate-high risk procedure for cardiac complications. Echo EF normal no RWMA Continue pantoprazole 40mg PO BID (2) Community acquired bacterial pneumonia: Plan: X-ray of chest shows: Mild progression of left lower lobe consolidation which favors pneumonia. Video swallow to be completed after surgery per speech recommendations Continue ceftriaxone (azithromycin one dose given on 09/22 but subsequently discontinued) (3) Acute pain of right knee: Plan: this appears to be a chronic problem, will lee (4) Diabetes mellitus with kidney complication: Plan: HbA1C 7.5 basal bolus insulin and glycemic consult (5) Urothelial carcinoma of bladder: Plan: urostomy on right flank. (6) Dyslipidemia: Plan: will resume home meds once able to take oral (7) Hypertension: Plan: Holding anti-hypertensives and monitoring due to blood loss (8) Permanent atrial fibrillation: Plan: Holding anticoagulation (9) Thrombocytopenia: Plan: history of above problem, will monitor (10) Acute blood loss anemia: Plan: secondary to GI bleed Repeat Hgb in AM Admission and Anticipated Discharge Date Admission Date: September 18, 2020 Subjective Feeling well. No shortness of breath. On room air. Cough improving. Surgery planning for for surgery. No BM since colonoscopy but passing flatus. No nausea, vomiting or abdominal pain. Tolerating Full liquid diet with overt aspirations. Review of Systems Review of Systems: All systems reviewed & are unremarkable except as noted in HPI & below Physical Exam Constitutional: WD/WN, vitals as above Respiratory: normal respiratory effort, lungs clear to auscultation Cardiovascular: RRR, no murmur, no edema Gastrointestinal (Abdomen): Inspection/Auscultation: + abdomen distended and normal bowel sounds Percussion/Palpation: abdomen soft; abdomen nontender, no guarding and abdomen not rigid Musculoskeletal: no cyanosis or clubbing, extremities motor strength 5/5 Skin: no rashes, warm and dry Neurologic: moves all extremities and awake; not confused Psychiatric: A+Ox3, euthymic affect Results & Data Results & Data ([facility]) Vital Signs (Past 12 Hours) Vital Signs Temp Pulse Pulse Resp BP BP Pulse Ox 09/25/20 19:12 36.8 C 45 L 17 136/64 94 09/25/20 16:02 36.5 C 64 18 126/72 93 09/25/20 16:00 82 09/25/20 11:50 36.6 C 81 19 121/72 91 PG Care Time/CCT Total # of Minutes Spent Total Time Spent with Patient: Total time spent is greater than 50% in coordination of care (as documented) at patient's floor/unit and/or counseling patient: Coding Level of Care Code 94412 Subseq Hosp Care Lvl 2 Diagnoses Acute GI bleeding K92.2 Community acquired bacterial pneumonia J15.9 Acute pain of right knee M25.561 Diabetes mellitus with kidney complication E11.29 Urothelial carcinoma of bladder C67.9 Dyslipidemia E78.5 Hypertension I10 Permanent atrial fibrillation I48.2 Thrombocytopenia D69.6 Acute blood loss anemia D62
[2020-09-26 07:25] LABS: Basophils # (auto) 0.01 K/uL (0-0.2); Basophils % (auto) 0.1 %; Eosinophils # (auto) 0.21 K/uL (0-0.5); Eosinophils % (auto) 3.1 %; Hematocrit (blood only) 29.1 % (42-52); Hemoglobin 9.2 g/dL (14.0-18.0); Immature Granulocytes # (auto) 0.02 K/uL (0.00-0.02); Immature Granulocytes % (auto) 0.3 %; Lymphocytes # (auto) 1.06 K/uL (1.2-3.4); Lymphocytes % (auto) 15.8 %; Mean Corpuscular Hemoglobin 26.7 pg (25-34); Mean Corpuscular Hgb Conc 31.6 g/dL (32-36); Mean Corpuscular Volume 84.6 fL (80-100); Mean Platelet Volume 9.1 fL (7.4-10.4); Monocytes % (auto) 4.5 %; Neutrophils % (auto) 76.2 %; Platelet Count 220 K/uL (130-400); RDW Coefficient of Variation 15.7 % (11.5-14.5); RDW Standard Deviation 48.6 fL (36.4-46.3); Red Blood Count 3.44 M/uL (4.7-6.1)
[2020-09-26 07:45] LABS: Estimated Average Glucose 169 mg/dl; Hemoglobin A1C 7.5 % (4.5-5.6)
[2020-09-26] MEDS: INSULIN ASPART 100 UNITS/ML 3 ML PEN SC SCH ×4 (07:59→21:01)
[2020-09-26] MEDS: INSULIN GLARGINE SOLOSTAR 100 UNITS/ML 3 ML PEN SC SCH (08:00)
[2020-09-26] MEDS: FAMOTIDINE 20 MG TAB PO SCH ×2 (08:00→20:59)
[2020-09-26] MEDS: guaiFENesin 600 MG TABCR PO SCH ×2 (08:01→20:59)
[2020-09-26] MEDS: ATORVASTATIN 40 MG TAB PO SCH (08:01)
[2020-09-26] MEDS: FLUTICASONE PROPIONATE NA SPR 16 GM BTL NAE SCH ×2 (08:01→20:57)
[2020-09-26] MEDS: PANTOprazole 40 MG TAB PO SCH ×2 (08:01→20:58)
[2020-09-26] MEDS: cefTRIAXone SODIUM 2,000 MG in DEXTROSE 5% 50 ML IV SCH (08:34)
--- NOTE | 2020-09-26 10:29 | XRay Report ---
XR chest 1V portable CLINICAL HISTORY: follow up infiltrate COMPARISON STUDY: September 23, 2020 FINDINGS: No definite pneumothorax is seen however evaluation is limited due to redemonstration of innumerable calcified nodules within bilateral upper lungs.. Minimal blunting of the left costophrenic angle is seen which could represent small left pleural effu tejinder. Mild interval worsening of the left retrocardiac opacity since recent prior study which might represe nt pneumonia. Previously seen opacity at the right lower lung is slightly improved which might repres ent atelectasis. Heart and mediastinal silhouette is stable. Aorta is calcified. No significant pulmonary vascular congestion.. Osseous structures: Osteopenia. Degenerative changes of the spine. IMPRESSION: 1. Mild interval worsening of consolidative opacity within left lower lung and minimal left pleural effusion. 2. Redemonstration of innumerable calcified nodules which is seen bilaterally mostly within right an d left upper lungs. ACT 112: Negative or not required by law. The above report was generated using voice recognition software. It may contain grammatical, syntax o r spelling errors. Electronically signed by: Mary Reyes DO 09/26/2020 10:28 AM
--- NOTE | 2020-09-26 12:03 | Surgery Progress Note ---
Date of Service September 26, 2020 Assessment & Plan (1) Colonic mass: Plan: Will have tentatively placed patient on the OR schedule for this upcoming pending patient's medical clearance He is currently on room air, is afebrile, still with an intermittent cough Continue on liquid diet for now Will discuss with our Urology colleagues the possibility of placing ureteral stents day of surgery given history of cystectomy and ileal conduit Plan: I discussed the situation with Dr. Maeys 2 days ago and felt that possibly could be ready for surgery for tomorrow also discussed the situation with his at that time We will proceed with plans for surgery tomorrow pending repeat chest x-ray and labs today we will keep him n.p.o. after midnight institute oral antibiotics today but certainly could change if preop evaluation shows him still have an infiltrate medically cleared for surgery Permit was signed All questions with patient were answered including anticipated recovery time Admission and Anticipated Discharge Date Admission Date: September 18, 2020 Subjective Without any major complaints wondering when he is going to have surgery prior to being in the hospital Physical Exam Physical Exam: Coherent in no distress Abdomen completely benign Results & Data ([facility]) Vital Signs (Past 12 Hours) Vital Signs Temp Pulse Pulse Resp BP Pulse Ox 09/26/20 11:01 36.2 C L 72 18 114/69 94 09/26/20 07:38 36.7 C 85 19 142/80 H 91 09/26/20 07:00 82 09/26/20 04:08 36.7 C 80 18 161/76 H 94 PG Care Time/CCT Total # of Minutes Spent Total Time Spent with Patient: Total time spent is greater than 50% in coordination of care (as documented) at patient's floor/unit and/or counseling patient: Coding Level of Care Code 30022 Subseq Hosp Care Lvl 2 Diagnoses Colonic mass K63.89
[2020-09-26] MEDS: NEOMYCIN SULFATE 500 MG TAB PO SCH ×3 (13:58→20:58)
[2020-09-26] MEDS: metroNIDAZOLE 500 MG TAB PO SCH ×3 (13:58→20:59)
--- NOTE | 2020-09-26 14:47 | Pharmacy Report ---
Pharmacy Glycemic Short Note 2 - Date of Service September 26, 2020 - Glycemic Short BSG Results (Last 24 hours): 09/25/20 09/25/20 09/26/20 16:30 20:12 07: POC Glucose 91 81 119 H 09/26/20 11:11 POC Glucose 108 H OUTPATIENT ANTIDIABETIC REGIMEN: * Glipizide XL 10mg PO daily ASSESSMENT: 09/26/20 * Patient's BSGs yesterday were 1410-531-21-81. Fasting today was 119 mg/dL. * Patient received Lantus 15 units + Novolog 53 units (total of 68 units of insulin) * Patient is NPO tomorrow. Reduce Lantus to 10 units today (hold evening dose of Lantus). Reevaluate insulin tomorrow. * Continue tighten CR as postprandial BSGs more in-range. 09/25/20 * Patient's BSGs yesterday were [id number] mg/dL * Fasting today was 128 mg/dL. * Patient received Lantus 20 units + Novolog 44 units (total of 64 units of insulin). * Fasting within goal range. Continue Lantus 10 units BID. * Post-prandial BSGs trend upwards. Tighten carbohydrate ratio as appears patient is carbohydrate sensitive. 09/23/20 * Pt has received 39 units of insulin over the past 24hrs * 20 units of basal with Lantus * 19 units of bolus with NovoLog * BSGs 141-252 mg/dl * Patient's blood sugars improving with insulin starting yesterday at lunch time * Fasting 141mg/dl - continue Lantus * Blood sugars in 200s yesterday d/t just starting insulin, and needing more CR, tighten 09/22/20 * 85 year old male admitted with GI bleed, colonic mass, surgery planned likely for Thursday * Type 2 diabetic maintained on oral antidiabetic agents as an outpatient * Oral agents are not recommended for inpatient use d/t drug interactions, changing PO intake, and difficulty titrating for acute hyper/hypoglycemia. ADA recommends re-initiating outpatient oral agents 1-2 days prior to discharge if/when appropriate if they were held on admission. * Will hold oral agents for admission and utilize SQ basal bolus insulin regimen which is the recommended regimen for inpatient glycemic control. * Will initiate weight based insulin dosing for insulin yumiko patient and titrate based on BSG trends. * Patient has had 0 units of insulin since admission, blood sugars above goal, 175-252mg/dl in the past 24 hours PLAN FOR INPATIENT GLYCEMIC CONTROL: * Hold outpatient oral diabetes medications * Basal insulin * Lantus 10 units this morning then re-evaluate tomorrow. * Bolus insulin * NovoLog per scale ACHS or Q6hrs while NPO * Goal Range: Low 110 mg/dL - High 140 mg/dL * Correction Factor: 20 mg/dL/unit * tighten: Nutritional / Prandial insulin per carb ratio of 1 unit per 3 grams CHO consumed PLAN FOR DISCHARGE: * HbA1C is reasonable for patient's comorbidities. He has had significant blood loss recently. * Reasonable to check BSGs at various times to establish true blood sugar control and adjust as needed.
--- NOTE | 2020-09-26 22:16 | Hospitalist Progress Note ---
Date of Service September 26, 2020 Assessment & Plan (1) Acute GI bleeding: Plan: Dark red blood per rectum s/p 2 units PRBC Colonoscopy showed : Malignant partially obstructing tumor in the ascending colon and in the proximal ascending colon. Biopsied. - Malignant partially obstructing tumor in the transverse colon and in the mid transverse colon. Biopsied. - Non-bleeding internal hemorrhoids 4 mm hypodensity within the right hepatic lobe noted on CT SCAN. No signs of mets to chest. Appreciate input from surgery: surgery on hold due to pneumonia, planning on surgery tomorrow, currently medically optimized for this. As per Alarcon and geriatric perioperative calculator: patient is 1.4% (low) risk for intermediate-high risk procedure for cardiac complications. Echo EF normal no RWMA Continue pantoprazole 40mg PO BID (2) Community acquired bacterial pneumonia: Plan: X-ray of chest shows: Mild progression of left lower lobe consolidation which favors pneumonia. Video swallow to be completed after surgery per speech recommendations Continue ceftriaxone (azithromycin one dose given on 09/22 but subsequently discontinued), last dose 09/30 (3) Acute pain of right knee: Plan: this appears to be a chronic problem, will monitor (4) Diabetes mellitus with kidney complication: Plan: HbA1C 7.5 basal bolus insulin and glycemic consult (5) Urothelial carcinoma of bladder: Plan: urostomy on right flank. (6) Dyslipidemia: Plan: will resume home meds once able to take oral (7) Hypertension: Plan: Holding anti-hypertensives and monitoring due to blood loss (8) Permanent atrial fibrillation: Plan: Currently SR 80s with PVCs Holding anticoagulation (9) Thrombocytopenia: Plan: history of above problem, resolved (10) Acute blood loss anemia: Plan: secondary to GI bleed Hgb increased to 9.2 Admission and Anticipated Discharge Date Admission Date: September 18, 2020 Subjective No acute events overnight. No question or concerns for me today. Catheter from ilial conduit dranining well. Hemoglobin 9.2 up from 8.3 on 09/23. No dizziness, chest pain or shortness of breath. On room air. Mild cough remains. Having liquid bowel movements. No abdominal pain, nausea or vomiting. Review of Systems Review of Systems: All systems reviewed & are unremarkable except as noted in HPI & below Physical Exam Constitutional: WD/WN, vitals as above Respiratory: normal respiratory effort, lungs clear to auscultation Cardiovascular: RRR, no murmur, no edema Gastrointestinal (Abdomen): Inspection/Auscultation: + abdomen distended and normal bowel sounds Percussion/Palpation: abdomen soft; abdomen nontender, no guarding and abdomen not rigid Musculoskeletal: no cyanosis or clubbing, extremities motor strength 5/5 Skin: no rashes, warm and dry Neurologic: moves all extremities and awake; not confused Psychiatric: A+Ox3, euthymic affect Results & Data Results & Data ([facility]) Vital Signs (Past 12 Hours) Vital Signs Temp Pulse Pulse Resp BP BP Pulse Ox 09/26/20 19:42 36.6 C 77 18 134/68 94 09/26/20 15:00 76 09/26/20 14:39 36.5 C 65 18 121/70 93 09/26/20 11:01 36.2 C L 72 18 114/69 94 PG Care Time/CCT Total # of Minutes Spent Total Time Spent with Patient: Total time spent is greater than 50% in coordination of care (as documented) at patient's floor/unit and/or counseling patient: Coding Level of Care Code 72957 Subseq Hosp Care Lvl 2 Diagnoses Acute GI bleeding K92.2 Community acquired bacterial pneumonia J15.9 Acute pain of right knee M25.561 Diabetes mellitus with kidney complication E11.29 Urothelial carcinoma of bladder C67.9 Dyslipidemia E78.5 Hypertension I10 Permanent atrial fibrillation I48.2 Thrombocytopenia D69.6 Acute blood loss anemia D62
[2020-09-27] MEDS ORDERED: ONDANSETRON INJ 2 MG/ML 2 ML VIAL ONE (06:26)
[2020-09-27] MEDS ORDERED: LIDOCAINE 2% 2 ML VIAL/AMP(20MG/ML) INFIL ONE (06:26)
[2020-09-27] MEDS ORDERED: fentaNYL citrate 100 MCG/2 ML VIAL ONE ×2 (06:26→07:59)
[2020-09-27] MEDS ORDERED: ROCURONIUM BROMIDE 10 MG/ML 5 ML VIAL IV ONE ×2 (06:26→09:42)
[2020-09-27] MEDS ORDERED: DEXAMETHASONE SOD INJ 4 MG/ML VIAL ONE (06:26)
[2020-09-27] MEDS ORDERED: PROPOFOL IV EMULSION 10 MG/ML 20 ML VIAL IV ONE (06:26)
[2020-09-27] MEDS ORDERED: NEOSTIGMINE METHYLSULFATE 1 MG/ML 10ML VIAL ONE (06:26)
--- NOTE | 2020-09-27 06:30 | History & Physical Bridge Note ---
Date of Service September 27, 2020 History & Physical Bridge Note I have examined the patient, reviewed the History & Physical and in the interval since the performance of the History & Physical I have noted the following changes of clinical significance: no changes noted no changes left word with on phone recorder yesterday that will proceed with subtotal colectomy(remove part of colon ) today all question answered permit signed yesterday
[2020-09-27] MEDS ORDERED: SUGAMMADEX SODIUM 200 MG/2 ML VIAL IV ONE (06:31)
[2020-09-27] MEDS ORDERED: BUPIVACAINE 0.5 % 5 MG/1 ML PF 10ML VIAL ONE (07:05)
[2020-09-27] MEDS ORDERED: LACTATED RINGER'S 1,000 ML IV SCH (07:15)
[2020-09-27] MEDS ORDERED: KETAMINE 50 MG/5 ML SYRINGE ONE (07:34)
[2020-09-27] MEDS ORDERED: cefOXitin 2,000 MG in DEXTROSE 5% 50 ML IV ONE (07:40)
[2020-09-27] MEDS ORDERED: ePHEDrine sulfate 50 MG/ML AMP IV PRN (08:56)
[2020-09-27] MEDS ORDERED: fentaNYL citrate 100 MCG/2 ML VIAL IV PRN (08:56)
[2020-09-27] MEDS ORDERED: ONDANSETRON INJ 2 MG/ML 2 ML VIAL IV PRN (08:56)
[2020-09-27] MEDS ORDERED: ATROPINE SULFATE 0.1 MG/ML 10ML SYR IV PRN (08:56)
[2020-09-27] MEDS ORDERED: SURGICEL ABSORB HEMOSTAT 2IN X 14IN TOP ONE (09:30)
[2020-09-27] MEDS ORDERED: ePHEDrine sulfate 50 MG/ML SYR ONE (09:42)
[2020-09-27] MEDS ORDERED: METHYLENE BLUE 0.5% 10 ML VIAL ONE (09:42)
--- NOTE | 2020-09-27 10:40 | Post Operative Brief Note ---
PG Immediate Post Op with CF Date of Surgery September 27, 2020 Pre & Post Diagnosis Operation Date: 09/19/20 17:00 <No data on this case meets the specified criteria> Operation Date: 09/20/20 17:00 Pre-Op Diagnosis: GI BLEED Post-Op Diagnosis: EGD: Normal Colonoscopy: 2 Colon Masses Dye injected to distal transverse colon Diverticulosis Hemorrhoids Operation Date: 09/27/20 07:00 Pre-Op Diagnosis: GASTROINTESTINAL BLEED, COLONIC MASS Post-Op Diagnosis: GASTROINTESTINAL BLEED, COLONIC MASS I identified the patient and participated in the time-out.: Yes Procedure Operation Date: 09/19/20 17:00 <No data on this case meets the specified criteria> Operation Date: 09/20/20 17:00 Actual Procedures p Esophagogastroduodenoscopy - Yousif Barragan Case, DO s Colonoscopy Biopsy Cytology - Yousif De Luna. Case, DO Operation Date: 09/27/20 07:00 Actual Procedures p Open Subtotal Colectomy(Not Applicable) - Yohan Alvarez MD, FACS Surgeon Yohan Alvarez MD, FACS [employer] Officer krista alicia Estimated Blood Loss 250 Findings Consistent with Post-Op Diagnosis Specimens Specimen Description: PATHOLOGY: A. Ascending colon and hepatic transverse colon (long suture in middle colic) B. incarcerated umbilical hernia Drains Colin Drain (19fr), Hanson Catheter (ileal conduit catheter intact upon entering OR suite, switched out during procedure) and Rick Drain (5/8)
[2020-09-27] MEDS: INSULIN ASPART 100 UNITS/ML 3 ML PEN SC SCH ×4 (10:45→21:44)
[2020-09-27] MEDS ORDERED: MoRPHine SULFATE 4 MG/ML 1 ML CARP\\VIAL IV PRN (12:15)
[2020-09-27] MEDS ORDERED: MoRPHine SULFATE 2 MG/ML CARP IV PRN (12:15)
[2020-09-27] MEDS ORDERED: ACETAMINOPHEN 1000 MG/100 ML IV IV SCH (12:15)
--- NOTE | 2020-09-27 12:20 | Operative Report ---
PG Post Operative Report Pre & Post Diagnosis Operation Date: 09/19/20 17:00 <No data on this case meets the specified criteria> Operation Date: 09/20/20 17:00 Pre-Op Diagnosis: GI BLEED Post-Op Diagnosis: EGD: Normal Colonoscopy: 2 Colon Masses Dye injected to distal transverse colon Diverticulosis Hemorrhoids Operation Date: 09/27/20 07:00 Pre-Op Diagnosis: GASTROINTESTINAL BLEED, COLONIC MASS Post-Op Diagnosis: GASTROINTESTINAL BLEED, COLONIC MASS I identified the patient and participated in the time-out.: Yes Procedure Operation Date: 09/19/20 17:00 <No data on this case meets the specified criteria> Operation Date: 09/20/20 17:00 Actual Procedures p Esophagogastroduodenoscopy - Yousif De Luna. Case, DO s Colonoscopy Biopsy Cytology - Yousif De Luna. Case, DO Operation Date: 09/27/20 07:00 Actual Procedures p Open Subtotal Colectomy(Not Applicable) - Yohan Alvarez MD, FACS Patient was brought into the operating theater supine position general endotracheal anesthesia systemic antibiotics on board. This point took the bag off to the ileal conduit and then prepped the abdomen with Betadine solution and properly draped a timeout was had patient was identified we then brought into the field a 14 Ukrainian 5 cc Hanson catheter and placed into the ileal conduit just approximately an inch and a half brought the balloon up to about 3 cc and sutured the Hanson catheter about 10 cm or so from the insertion ileal conduit with 2-0 silk under the skin edge to keep it from migrating out this was connec leonid to the back and we could see the patient in draining urine we then made a midline incision starting inferior to the epigastric area went to the left of the umbilicus deepened to subcutaneous tissue we entered the abdominal cavity where fortunately we did not see many adhesions we could easily appreciate the falciform ligament that was on her way and we divided between Lexis clamps and ligated identify at this point the transverse colon as we pulled it up we can see a tattoo the area just the left of the midline in the transverse colon I palpated down towards the right gutter and I can feel a hard mass in the ascending colon area this point I extended the incision distally below the umbilicus staying away and making sure that we are away from the conduit which we stayed away throughout the whole time did have a significant amount of adhesions to the anterior abdominal wall along the umbilicus small bowel but stayed away from an any event and findings to the point that we had enough mobilization of the small volume down towards the pelvis we could see part of the sigmoid colon and stay away from it and as it entered the anterior abdominal wall towards the mesentery was avoided having been secured and we were away from the conduit to the abdominal wall and then resected the mesentery to the cecum and the terminal ileum by using a JULIENNE stapler and we took down the small bowel proximal to the anastomosis that had been done from the condyloid. We did take a dissection up around to the middle colic area. We freed up the greater omentum right off the greater curvature ligated with 2-0 silk as we went along then we went on and freed up the transverse colon beyond the tattooed area even though the tattoo there is approximately 10 cm or so from a palpable lesion. JULIENNE stapler was used to resect the colon. We at this point brought the 2 lines of resection in a terminal ileum and the colon and a cytocide anastomosis after we enforce each of the staple line mesentery was closed with interrupted 3-0 silk cytocide anastomosis was done with 3-0 silk outer layer 3-0 chromic inner layer closed, date a 2 fingers. This point we returned the viscera intra- abdominally we checked again the viability of the terminal ileum was fine as far as the conduit he is concerned the ileal conduit itself was pink and there is some urine in the catheter. This point we gave some methylene blue. While waiting for we then closed the abdomen by first placing the NG tube at 60 cm into the stomach palpated of position replace the Colin drain 19 round to the right flank and brought in anteriorly the ileal conduit down the pelvis attaching skin edge with 2-0 silk suture the midline was closed with #1 PDS running fashion "5 days of an inch Rick was placed in subcu and wally for skin edges dressing was applied procedure was tolerated well by the patient was taken recovery room in good condition addendum Clarissa Maria physician manufacturing assistant was present throughout the procedure and helped the retraction exposure and wound closure addendum I talked to his after surgery Surgeon Yohan Alvarez MD, FACS Coordinator Of Online Programs krista alicia Estimated Blood Loss 250 Findings Consistent with Post-Op Diagnosis Specimens Subtotal colectomy a sending hepatic transverse colon to the splenic flexure Drains 19 round leg drain to the pelvis 5 eight 7 inch Rick subcu incision Description of Procedure merda I attest to the content of the Intraoperative Record and any orders documented therein. Any exceptions are noted below.
[2020-09-27] MEDS: guaiFENesin 600 MG TABCR PO SCH ×2 (12:27→20:32)
[2020-09-27] MEDS: FLUTICASONE PROPIONATE NA SPR 16 GM BTL NAE SCH ×2 (12:27→20:32)
--- NOTE | 2020-09-27 12:27 | Anesthesiology Progress Note ---
Date of Service September 27, 2020 Anesthesia Post Procedure Vital Signs Vital Signs: Temp Pulse Pulse Pulse Resp BP BP 09/27/20 11:50 94 H 18 129/69 09/27/20 11:40 36.1 C L 93 H 20 129/70 09/27/20 11:30 92 H 23 133/72 09/27/20 11:20 89 19 129/71 09/27/20 11:10 89 20 131/68 09/27/20 11:00 91 H 19 130/71 09/27/20 10:53 36.4 C L 95 H 20 130/70 09/27/20 06:20 36.9 C 84 20 147/75 H 09/27/20 04:10 36.9 C 88 18 133/54 L 09/26/20 23:34 36.7 C 75 18 127/70 09/26/20 23:11 86 09/26/20 19:42 36.6 C 77 18 134/68 09/26/20 15:00 76 09/26/20 14:39 36.5 C 65 18 121/70 Pulse Ox 09/27/20 11:50 95 09/27/20 11:40 94 09/27/20 11:30 96 09/27/20 11:20 98 09/27/20 11:10 98 09/27/20 11:00 97 09/27/20 10:53 94 09/27/20 06:20 94 09/27/20 04:10 93 09/26/20 23:34 93 09/26/20 23:11 09/26/20 19:42 94 09/26/20 15:00 09/26/20 14:39 93 Transfer of Care Handoff Completed per policy Notes Mental Status: alert / awake / arousable Patient Amnestic to Procedure: Yes Nausea / Vomiting: adequately controlled Pain: adequately controlled Airway Patency, RR, SpO2: stable & adequate BP & HR: stable & adequate Hydration State: stable & adequate Anesthetic Complications: no major complications apparent Notes: block working well in pacu
[2020-09-27] MEDS: FAMOTIDINE 20 MG TAB PO SCH (12:28)
[2020-09-27] MEDS: ATORVASTATIN 40 MG TAB PO SCH (12:28)
[2020-09-27] MEDS: PANTOprazole 40 MG TAB PO SCH (12:28)
[2020-09-27] MEDS: cefTRIAXone SODIUM 2,000 MG in DEXTROSE 5% 50 ML IV SCH (12:43)
[2020-09-27] MEDS: LACTATED RINGER'S 1,000 ML IV SCH ×2 (12:43→20:31)
[2020-09-27] MEDS ORDERED: INSULIN GLARGINE SOLOSTAR 100 UNITS/ML 3 ML PEN SC ONE (12:45)
[2020-09-27 13:29] LABS: Hematocrit (blood only) 31.5 % (42-52); Hemoglobin 9.5 g/dL (14.0-18.0); Mean Corpuscular Hgb Conc 30.2 g/dL (32-36); Mean Corpuscular Volume 86.3 fL (80-100); Mean Platelet Volume 9.9 fL (7.4-10.4); Platelet Count 260 K/uL (130-400); RDW Standard Deviation 50.8 fL (36.4-46.3); Red Blood Count 3.65 M/uL (4.7-6.1); White Blood Count 17.89 K/uL (4.8-10.8)
[2020-09-27 13:50] LABS: Acanthocytes 1+; Basophils # (auto) 0.01 K/uL (0-0.2); Basophils % (auto) 0.1 %; Echinocytes 1+; Eosinophils # (auto) 0.01 K/uL (0-0.5); Eosinophils % (auto) 0.1 %; Hypochromasia Present; Immature Granulocytes # (auto) 0.04 K/uL (0.00-0.02); Immature Granulocytes % (auto) 0.2 %; Lymphocytes # (auto) 0.45 K/uL (1.2-3.4); Lymphocytes % (auto) 2.5 %; Monocytes # (auto) 0.43 K/uL (0.11-0.59); Monocytes % (auto) 2.4 %; Neutrophils # (auto) 16.95 K/uL (1.4-6.5); Neutrophils % (auto) 94.7 %; Poikilocytosis Present
[2020-09-27] MEDS: ACETAMINOPHEN 1,000 MG/100 ML VIAL IV SCH ×2 (14:20→21:46)
--- NOTE | 2020-09-27 14:32 | Pharmacy Report ---
Pharmacy Glycemic Short Note 2 - Date of Service September 27, 2020 - Glycemic Short BSG Results (Last 24 hours): 09/26/20 09/26/20 09/27/20 16:15 20:46 06:25 POC Glucose 76 142 H 142 H 09/27/20 09/27/20 10:58 11:41 POC Glucose 285 H 292 H OUTPATIENT ANTIDIABETIC REGIMEN: * Glipizide XL 10mg PO daily ASSESSMENT: 09/27/20 * Patient's BSGs yesterday were [phone]. Fasting today was 142 mg/dL. * Patient received Lantus 10 units + Novolog 43 units (total of 53 units of insulin) * Lantus 10 units given yesterday due to NPO status today. Patient went to OR at 615 so morning Lantus not given. Postop give full 20 unit dose as this is patient's typical Lantus dosing. * Noon BSG elevated due to lack of morning Lantus plus administration of dexamethasone 4 mg during surgery. Continue CF of 20 as this is good for patient. More aggressive CF leads to hypoglycemia. Checks every 4 hours. 09/26/20 * Patient's BSGs yesterday were [id number]. Fasting today was 119 mg/dL. * Patient received Lantus 15 units + Novolog 53 units (total of 68 units of insulin) * Patient is NPO tomorrow. Reduce Lantus to 10 units today (hold evening dose of Lantus). Reevaluate insulin tomorrow. * Continue tighten CR as postprandial BSGs more in-range. 09/25/20 * Patient's BSGs yesterday were [phone] mg/dL * Fasting today was 128 mg/dL. * Patient received Lantus 20 units + Novolog 44 units (total of 64 units of insulin). * Fasting within goal range. Continue Lantus 10 units BID. * Post-prandial BSGs trend upwards. Tighten carbohydrate ratio as appears patient is carbohydrate sensitive. 09/23/20 * Pt has received 39 units of insulin over the past 24hrs * 20 units of basal with Lantus * 19 units of bolus with NovoLog * BSGs 141-252 mg/dl * Patient's blood sugars improving with insulin starting yesterday at lunch time * Fasting 141mg/dl - continue Lantus * Blood sugars in 200s yesterday d/t just starting insulin, and needing more CR, tighten 09/22/20 * 85 year old male admitted with GI bleed, colonic mass, surgery planned likely for Thursday * Type 2 diabetic maintained on oral antidiabetic agents as an outpatient * Oral agents are not recommended for inpatient use d/t drug interactions, changing PO intake, and difficulty titrating for acute hyper/hypoglycemia. ADA recommends re-initiating outpatient oral agents 1-2 days prior to discharge if/when appropriate if they were held on admission. * Will hold oral agents for admission and utilize SQ basal bolus insulin regimen which is the recommended regimen for inpatient glycemic control. * Will initiate weight based insulin dosing for insulin yumiko patient and titrate based on BSG trends. * Patient has had 0 units of insulin since admission, blood sugars above goal, 175-252mg/dl in the past 24 hours PLAN FOR INPATIENT GLYCEMIC CONTROL: * Hold outpatient oral diabetes medications * Basal insulin * Lantus 20 units x1 then re-evaluate tomorrow. * Bolus insulin * NovoLog per scale ACHS or Q6hrs while NPO * Goal Range: Low 110 mg/dL - High 140 mg/dL * Correction Factor: 20 mg/dL/unit * tighten: Nutritional / Prandial insulin per carb ratio of 1 unit per 3 grams CHO consumed PLAN FOR DISCHARGE: * HbA1C is reasonable for patient's comorbidities. He has had significant blood loss recently. * Reasonable to check BSGs at various times to establish true blood sugar control and adjust as needed.
[2020-09-27] MEDS: PANTOprazole 40 MG in SYRINGE 0 ML IV SCH (20:32)
--- NOTE | 2020-09-27 22:29 | Hospitalist Progress Note ---
Date of Service September 27, 2020 Assessment & Plan (1) Acute GI bleeding: Plan: Dark red blood per rectum s/p 2 units PRBC Colonoscopy showed : Malignant partially obstructing tumor in the ascending colon and in the proximal ascending colon. Biopsied. - Malignant partially obstructing tumor in the transverse colon and in the mid transverse colon. Biopsied. - Non-bleeding internal hemorrhoids 4 mm hypodensity within the right hepatic lobe noted on CT SCAN. No signs of mets to chest. S/p Open subtotal colectomy by Dr Alvarez 09/27 Echo EF normal no RWMA Switch to pantoprazole 40 mg IV BID (2) Community acquired bacterial pneumonia: Plan: X-ray of chest shows: Mild progression of left lower lobe consolidation which favors pneumonia. Video swallow to be completed after surgery per speech recommendations - scheduled for Thursday as long as eating and drinking at that time. Continue ceftriaxone (azithromycin one dose given on 09/22 but subsequently discontinued), last dose 09/30 (3) Acute pain of right knee: Plan: this appears to be a chronic problem, will monitor (4) Diabetes mellitus with kidney complication: Plan: HbA1C 7.5 basal bolus insulin and glycemic consult (5) Urothelial carcinoma of bladder: Plan: urostomy on right abdomen (6) Dyslipidemia: Plan: will resume home meds once able to take oral (7) Hypertension: Plan: Holding anti-hypertensives and monitoring due to blood loss/surgery (8) Permanent atrial fibrillation: Plan: Currently SR 80s with PVCs Holding anticoagulation (9) Thrombocytopenia: Plan: history of above problem, resolved (10) Acute blood loss anemia: Plan: secondary to GI bleed Hgb stable 9.2 Admission and Anticipated Discharge Date Admission Date: September 18, 2020 Subjective Patient seen post surgery today. Asleep in bed but wakes briefly to voice. NG tube in place. Not yet passed gas. On 2L oxymask. Review of Systems Review of Systems: Unobtainable due to cognitive status Physical Exam Constitutional: WD/WN, vitals as above Respiratory: normal respiratory effort, lungs clear to auscultation Cardiovascular: RRR, no murmur, no edema Gastrointestinal (Abdomen): Inspection/Auscultation: + abdomen distended Percussion/Palpation: abdomen soft Skin: no rashes, warm and dry Neurologic: moves all extremities and awake; not confused Psychiatric: A+Ox3, euthymic affect Results & Data Results & Data ([facility]) Vital Signs (Past 12 Hours) Vital Signs Temp Pulse Pulse Pulse Resp BP BP 09/27/20 19:48 36.4 C L 83 18 124/75 09/27/20 19:00 36.4 C L 82 18 123/65 09/27/20 15:53 91 H 119/66 09/27/20 14:30 97 H 09/27/20 13:34 36.3 C L 90 24 128/70 09/27/20 12:35 91 H 09/27/20 12:34 91 H 129/67 09/27/20 12:15 36.5 C 85 16 123/69 09/27/20 11:50 94 H 18 129/69 09/27/20 11:40 36.1 C L 93 H 20 129/70 09/27/20 11:30 92 H 23 133/72 09/27/20 11:20 89 19 129/71 09/27/20 11:10 89 20 131/68 09/27/20 11:00 91 H 19 130/71 09/27/20 10:53 36.4 C L 95 H 20 130/70 Pulse Ox 09/27/20 19:48 93 09/27/20 19:00 91 09/27/20 15:53 91 09/27/20 14:30 09/27/20 13:34 96 09/27/20 12:35 09/27/20 12:34 09/27/20 12:15 94 09/27/20 11:50 95 09/27/20 11:40 94 09/27/20 11:30 96 09/27/20 11:20 98 09/27/20 11:10 98 09/27/20 11:00 97 09/27/20 10:53 94 PG Care Time/CCT Total # of Minutes Spent Total Time Spent with Patient: Total time spent is greater than 50% in coordination of care (as documented) at patient's floor/unit and/or counseling patient: Coding Level of Care Code 92810 Subseq Hosp Care Lvl 2 Diagnoses Acute GI bleeding K92.2 Community acquired bacterial pneumonia J15.9 Acute pain of right knee M25.561 Diabetes mellitus with kidney complication E11.29 Urothelial carcinoma of bladder C67.9 Dyslipidemia E78.5 Hypertension I10 Permanent atrial fibrillation I48.2 Thrombocytopenia D69.6 Acute blood loss anemia D62
[2020-09-28] MEDS: INSULIN ASPART 100 UNITS/ML 3 ML PEN SC SCH ×8 (00:23→20:41)
[2020-09-28] MEDS: LACTATED RINGER'S 1,000 ML IV SCH (04:19)
[2020-09-28] MEDS: ACETAMINOPHEN 1,000 MG/100 ML VIAL IV SCH ×3 (05:07→22:28)
[2020-09-28] MEDS ORDERED: INSULIN GLARGINE SOLOSTAR 100 UNITS/ML 3 ML PEN SC ONE (08:00)
--- NOTE | 2020-09-28 08:19 | Surgery Progress Note ---
Date of Service September 28, 2020 Assessment & Plan (1) Colonic mass: Plan: POD#1 resection of ascending and transverse colon Patient doing as expected this AM Labs pending, VSS, afebrile. On room air NGT with scant output SOTERO drain serosang Urostomy functioning Encourage out of bed to chair today and pulmonary toilet Admission and Anticipated Discharge Date Admission Date: September 18, 2020 Supervising Physician Co-Signing Physician Notes As per Clarissa Maria physician freezer assistant Patient sitting up in a chair comfortable minimal abdominal discomfort No further episodes of dry cough since surgery Urine slight bluish-greenish for methylene blue as expected Minimal NG output therefore we will remove the NG tube start patient chips and water sips today with meds Went over with the patient the operative findings and anticipated hospital stay which I feel will still be here by Thursday Discussed with the medical service regarding antibiotic therapy that was been instituted preoperatively from some questionable pneumonia they will manage it Cut his fluid back to 80 cc an hour today his creatinine and BUN slightly elevated as expected but given his age, be less aggressive with fluid at this time All questions were answered Dr. Dupree covering the weekend Subjective Patient feeling okay this AM. Denies pain at rest, but feels it when he is moving around. Physical Exam Physical Exam: awake/alert Constitutional: no acute distress Respiratory: normal respiratory effort Gastrointestinal (Abdomen): Inspection/Auscultation: + abdominal surgical incision (surgical dressings c/d/i) and + abdominal surgical drain present (sersoang); abdomen not distended Percussion/Palpation: + abdomen tender (some ttp momo-incisionally) and abdomen soft urostomy working, putting out bluish/green tinged urine (expected given that methylene blue was administered intraop) Results & Data ([facility]) Vital Signs (Past 12 Hours) Vital Signs Temp Pulse Pulse Resp BP Pulse Ox 09/28/20 03:32 36.3 C L 84 18 144/79 H 94 09/27/20 23:32 36.5 C 81 20 124/70 96 09/27/20 23:13 83 PG Care Time/CCT Total # of Minutes Spent Total Time Spent with Patient: Total time spent is greater than 50% in coordination of care (as documented) at patient's floor/unit and/or counseling patient: Coding Level of Care Code None Diagnoses Colonic mass K63.89
[2020-09-28] MEDS: cefTRIAXone SODIUM 2,000 MG in DEXTROSE 5% 50 ML IV SCH (08:22)
[2020-09-28] MEDS: PANTOprazole 40 MG in SYRINGE 0 ML IV SCH ×2 (08:22→20:49)
[2020-09-28] MEDS: FLUTICASONE PROPIONATE NA SPR 16 GM BTL NAE SCH ×2 (08:23→20:51)
[2020-09-28] MEDS: guaiFENesin 600 MG TABCR PO SCH ×2 (08:23→20:50)
[2020-09-28 08:28] LABS: Basophils # (auto) 0.01 K/uL (0-0.2); Basophils % (auto) 0.1 %; Eosinophils # (auto) 0.01 K/uL (0-0.5); Eosinophils % (auto) 0.1 %; Hematocrit (blood only) 26.7 % (42-52); Hemoglobin 8.2 g/dL (14.0-18.0); Immature Granulocytes # (auto) 0.04 K/uL (0.00-0.02); Immature Granulocytes % (auto) 0.3 %; Lymphocytes # (auto) 0.96 K/uL (1.2-3.4); Lymphocytes % (auto) 7.1 %; Mean Corpuscular Hemoglobin 26.4 pg (25-34); Mean Corpuscular Hgb Conc 30.7 g/dL (32-36); Mean Corpuscular Volume 85.9 fL (80-100); Mean Platelet Volume 9.7 fL (7.4-10.4); Monocytes # (auto) 0.33 K/uL (0.11-0.59); Monocytes % (auto) 2.4 %; Neutrophils # (auto) 12.13 K/uL (1.4-6.5); Platelet Count 260 K/uL (130-400); RDW Coefficient of Variation 16.1 % (11.5-14.5); RDW Standard Deviation 50.7 fL (36.4-46.3); Red Blood Count 3.11 M/uL (4.7-6.1); White Blood Count 13.48 K/uL (4.8-10.8)
[2020-09-28 09:01] LABS: Calcium 8.7 mg/dl (8.5-10.1); Est GFR (African American) 49.3 ml/min; Est GFR (Non-African American) 42.5 ml/min; Potassium 4.4 mmol/L (3.5-5.1)
[2020-09-28] MEDS: DEXTROSE 5% 1,000 ML IV SCH ×2 (12:22→22:28)
--- NOTE | 2020-09-28 13:27 | Pharmacy Report ---
Pharmacy Glycemic Short Note 2 - Date of Service September 28, 2020 - Glycemic Short BSG Results (Last 24 hours): 09/27/20 09/27/20 09/28/20 16:16 21:27 00:20 Glucose POC Glucose 294 H 222 H 167 H 09/28/20 09/28/20 09/28/20 04:12 07:22 07:39 Glucose 134 H POC Glucose 161 H 163 H OUTPATIENT ANTIDIABETIC REGIMEN: * Glipizide XL 10mg PO daily ASSESSMENT: 09/28/20 * Patient's BSGs yesterday were [phone] and overnight were 167-161. Fasting today was 163 mg/dL. * Patient received 43 units of insulin yesterday - 20 units of basal and 23 units of bolus * Give patient Lantus 20 units this morning since fasting is steady. * Dextrose @ 100 cc/hr started around lunchtime. Patient is very carbohydrate sensitive. This represents about 20 grams in 4 hours which for him would be 7 units of Novolog. To be proactive especially in postoperative state, start with scheduled Novolog 4 units q4 hours (hold if BSG < 140 mg/dL and/or if dextrose is d/c'ed). Have hold parameter in case dextrose does not affect BSGs as planned. * Continue CF. 09/27/20 * Patient's BSGs yesterday were [phone]. Fasting today was 142 mg/dL. * Patient received Lantus 10 units + Novolog 43 units (total of 53 units of insulin) * Lantus 10 units given yesterday due to NPO status today. Patient went to OR at 615 so morning Lantus not given. Postop give full 20 unit dose as this is patient's typical Lantus dosing. * Noon BSG elevated due to lack of morning Lantus plus administration of dexamethasone 4 mg during surgery. Continue CF of 20 as this is good for patient. More aggressive CF leads to hypoglycemia. Checks every 4 hours. 09/26/20 * Patient's BSGs yesterday were [id number]. Fasting today was 119 mg/dL. * Patient received Lantus 15 units + Novolog 53 units (total of 68 units of insulin) * Patient is NPO tomorrow. Reduce Lantus to 10 units today (hold evening dose of Lantus). Reevaluate insulin tomorrow. * Continue tighten CR as postprandial BSGs more in-range. 09/25/20 * Patient's BSGs yesterday were [phone] mg/dL * Fasting today was 128 mg/dL. * Patient received Lantus 20 units + Novolog 44 units (total of 64 units of insulin). * Fasting within goal range. Continue Lantus 10 units BID. * Post-prandial BSGs trend upwards. Tighten carbohydrate ratio as appears patient is carbohydrate sensitive. 09/23/20 * Pt has received 39 units of insulin over the past 24hrs * 20 units of basal with Lantus * 19 units of bolus with NovoLog * BSGs 141-252 mg/dl * Patient's blood sugars improving with insulin starting yesterday at lunch time * Fasting 141mg/dl - continue Lantus * Blood sugars in 200s yesterday d/t just starting insulin, and needing more CR, tighten 09/22/20 * 85 year old male admitted with GI bleed, colonic mass, surgery planned likely for Thursday * Type 2 diabetic maintained on oral antidiabetic agents as an outpatient * Oral agents are not recommended for inpatient use d/t drug interactions, changing PO intake, and difficulty titrating for acute hyper/hypoglycemia. ADA recommends re-initiating outpatient oral agents 1-2 days prior to discharge if/when appropriate if they were held on admission. * Will hold oral agents for admission and utilize SQ basal bolus insulin regimen which is the recommended regimen for inpatient glycemic control. * Will initiate weight based insulin dosing for insulin yumiko patient and titrate based on BSG trends. * Patient has had 0 units of insulin since admission, blood sugars above goal, 175-252mg/dl in the past 24 hours PLAN FOR INPATIENT GLYCEMIC CONTROL: * Hold outpatient oral diabetes medications * Basal insulin * Lantus 20 units x1 then re-evaluate tomorrow. * Bolus insulin + Novolog 4 units q4 (hold if BSG < 140 mg/dL and/or dextrose infusion stopped) * NovoLog per scale ACHS or Q6hrs while NPO * Goal Range: Low 110 mg/dL - High 140 mg/dL * Correction Factor: 20 mg/dL/unit * tighten: Nutritional / Prandial insulin per carb ratio of 1 unit per 3 grams CHO consumed PLAN FOR DISCHARGE: * HbA1C is reasonable for patient's comorbidities. He has had significant blood loss recently so this may affect HbA1C. * Reasonable to check BSGs at various times to establish true blood sugar control and adjust as needed.
[2020-09-28] MEDS: HEPARIN SOD 5,000 UNIT/0.5 ML VIAL SQ SCH (20:50)
--- NOTE | 2020-09-28 22:54 | Hospitalist Progress Note ---
Date of Service September 28, 2020 Assessment & Plan (1) Acute GI bleeding: Plan: Dark red blood per rectum s/p 2 units PRBC Colonoscopy showed : Malignant partially obstructing tumor in the ascending colon and in the proximal ascending colon. Biopsied. - Malignant partially obstructing tumor in the transverse colon and in the mid transverse colon. Biopsied. - Non-bleeding internal hemorrhoids 4 mm hypodensity within the right hepatic lobe noted on CT SCAN. No signs of mets to chest. S/p Open subtotal colectomy by Dr Alvarez 09/27, NG tube and diet per surgery recommendations Echo EF normal no RWMA Continue pantoprazole 40 mg IV BID (2) Community acquired bacterial pneumonia: Plan: X-ray of chest shows: Mild progression of left lower lobe consolidation which favors pneumonia. Video swallow to be completed after surgery per speech recommendations - scheduled for Thursday as long as eating and drinking at that time. Continue ceftriaxone (azithromycin one dose given on 09/22 but subsequently discontinued), last dose 09/30 (3) Acute pain of right knee: Plan: this appears to be a chronic problem, will monitor (4) Diabetes mellitus with kidney complication: Plan: HbA1C 7.5 basal bolus insulin and glycemic consult (5) Urothelial carcinoma of bladder: Plan: urostomy on right abdomen (6) Dyslipidemia: Plan: will resume home meds once able to take oral (7) Hypertension: Plan: Holding anti-hypertensives and monitoring due to blood loss/surgery (8) Permanent atrial fibrillation: Plan: Currently SR 80s with PVCs Holding anticoagulation (9) Thrombocytopenia: Plan: history of above problem, resolved (10) Acute blood loss anemia: Plan: secondary to GI bleed Hgb stable 8.2 post operatively, asymptomatic from this, repeat in AM Admission and Anticipated Discharge Date Admission Date: September 18, 2020 Subjective Abdominal pain from operation, not yet passing gas. No drainage from NG tube. Methylene blue dye coming out in urine. No shortness of breath, chest pain or dizziness. Review of Systems Review of Systems: All systems reviewed & are unremarkable except as noted in HPI & below Physical Exam Constitutional: WD/WN, vitals as above Respiratory: normal respiratory effort, lungs clear to auscultation Cardiovascular: RRR, no murmur, no edema Gastrointestinal (Abdomen): Inspection/Auscultation: + abdomen distended Percussion/Palpation: + abdomen tender (generalized over operation site) and abdomen soft Musculoskeletal: no cyanosis or clubbing, extremities motor strength 5/5 Skin: no rashes, warm and dry Neurologic: moves all extremities and awake; not confused Psychiatric: A+Ox3, euthymic affect Results & Data Results & Data ([facility]) Vital Signs (Past 12 Hours) Vital Signs Temp Pulse Resp BP BP Pulse Ox 09/28/20 19:28 36.4 C L 75 18 142/73 H 95 09/28/20 15:00 36.5 C 74 18 125/66 100 09/28/20 13:13 93 09/28/20 11:00 37.0 C 88 18 139/70 98 PG Care Time/CCT Total # of Minutes Spent Total Time Spent with Patient: Total time spent is greater than 50% in coordination of care (as documented) at patient's floor/unit and/or counseling patient: Coding Level of Care Code 92459 Subseq Hosp Care Lvl 3 Diagnoses Acute GI bleeding K92.2 Community acquired bacterial pneumonia J15.9 Acute pain of right knee M25.561 Diabetes mellitus with kidney complication E11.29 Urothelial carcinoma of bladder C67.9 Dyslipidemia E78.5 Hypertension I10 Permanent atrial fibrillation I48.2 Thrombocytopenia D69.6 Acute blood loss anemia D62
[2020-09-29] MEDS: INSULIN ASPART 100 UNITS/ML 3 ML PEN SC SCH ×14 (00:21→23:00)
[2020-09-29] MEDS: ACETAMINOPHEN 1,000 MG/100 ML VIAL IV SCH ×3 (06:07→20:35)
[2020-09-29] MEDS: PANTOprazole 40 MG in SYRINGE 0 ML IV SCH ×2 (08:01→21:40)
[2020-09-29] MEDS: guaiFENesin 600 MG TABCR PO SCH ×2 (08:02→21:40)
[2020-09-29] MEDS: FLUTICASONE PROPIONATE NA SPR 16 GM BTL NAE SCH ×2 (08:02→20:35)
[2020-09-29] MEDS: HEPARIN SOD 5,000 UNIT/0.5 ML VIAL SQ SCH ×2 (08:05→21:40)
[2020-09-29] MEDS: DEXTROSE 5% 1,000 ML IV SCH ×2 (08:09→20:35)
[2020-09-29] MEDS: cefTRIAXone SODIUM 2,000 MG in DEXTROSE 5% 50 ML IV SCH (08:09)
--- NOTE | 2020-09-29 08:21 | Surgery Progress Note ---
Date of Service September 29, 2020 Assessment & Plan (1) H/O colectomy: Plan: Patient is awake and alert his vital signs are stable He is tolerating some sips of liquids IV fluids continue Drainage is serosanguineous I think we will continue with just sips of liquids today Try to mobilize the patient at least out of bed Check a.m. labs Admission and Anticipated Discharge Date Admission Date: September 18, 2020 Results & Data ([facility]) Vital Signs (Past 12 Hours) Vital Signs Temp Pulse Pulse Pulse Resp BP BP 09/29/20 08:00 36.8 C 89 16 154/77 H 09/29/20 07:41 101 H 09/29/20 04:13 36.5 C 73 18 155/77 H 09/29/20 00:00 87 09/28/20 23:35 36.3 C L 83 20 140/78 Pulse Ox 09/29/20 08:00 95 09/29/20 07:41 09/29/20 04:13 93 09/29/20 00:00 09/28/20 23:35 93 PG Care Time/CCT Total # of Minutes Spent Total Time Spent with Patient: Total time spent is greater than 50% in coordination of care (as documented) at patient's floor/unit and/or counseling patient: Coding Level of Care Code None Diagnoses H/O colectomy Z90.49
[2020-09-29 09:15] LABS: Hemoglobin 8.6 g/dL (14.0-18.0); Mean Corpuscular Hemoglobin 26.1 pg (25-34); Mean Corpuscular Hgb Conc 30.7 g/dL (32-36); Mean Corpuscular Volume 85.1 fL (80-100); Mean Platelet Volume 10.6 fL (7.4-10.4); Platelet Count 284 K/uL (130-400); RDW Coefficient of Variation 16.2 % (11.5-14.5); RDW Standard Deviation 50.4 fL (36.4-46.3); Red Blood Count 3.29 M/uL (4.7-6.1); White Blood Count 12.03 K/uL (4.8-10.8)
[2020-09-29] MEDS ORDERED: INSULIN GLARGINE SOLOSTAR 100 UNITS/ML 3 ML PEN SC SCH (09:30)
[2020-09-29 09:53] LABS: BUN Creatinine Ratio 13.7 (10-20); Calcium 8.8 mg/dl (8.5-10.1); Creatinine Clr Calc Pharmacy 43.9 ml/min; Est GFR (African American) 59.9 ml/min; Est GFR (Non-African American) 51.7 ml/min; Potassium 3.8 mmol/L (3.5-5.1)
--- NOTE | 2020-09-29 14:50 | Pharmacy Report ---
Pharmacy Glycemic Short Note 2 - Date of Service September 29, 2020 - Glycemic Short BSG Results (Last 24 hours): 09/28/20 09/28/20 09/29/20 16:43 20:24 00:04 Glucose POC Glucose 222 H 135 H 171 H 09/29/20 09/29/20 09/29/20 04:07 07:32 08:23 Glucose 146 H POC Glucose 104 H 158 H 09/29/20 12:02 Glucose POC Glucose 123 H OUTPATIENT ANTIDIABETIC REGIMEN: * Glipizide XL 10mg PO daily ASSESSMENT: 09/29/20: * Pt received 40 units of insulin yesterday (20 units of basal and 20 units of bolus) * Pt remains NPO. He is allowed sips of liquid only. Also continues on dextrose infusion @ 80 ml/hr. Will continue set dose of Novolog q4h to cover for dextrose in fluids. * Fasting BSG of 158 mg/dL is near goal and trending downward (although not a true fasting with dextrose infusing). Will decrease basal insulin 25% for today. May resume 20 units daily once diet resumed. 09/28/20 * Patient's BSGs yesterday were [phone] and overnight were 167-161. Fasting today was 163 mg/dL. * Patient received 43 units of insulin yesterday - 20 units of basal and 23 units of bolus * Give patient Lantus 20 units this morning since fasting is steady. * Dextrose @ 100 cc/hr started around lunchtime. Patient is very carbohydrate sensitive. This represents about 20 grams in 4 hours which for him would be 7 units of Novolog. To be proactive especially in postoperative state, start with scheduled Novolog 4 units q4 hours (hold if BSG < 140 mg/dL and/or if dextrose is d/c'ed). Have hold parameter in case dextrose does not affect BSGs as planned. * Continue CF. Background: * 85 year old male admitted with GI bleed, colonic mass, surgery planned likely for Thursday * Type 2 diabetic maintained on oral antidiabetic agents as an outpatient * Oral agents are not recommended for inpatient use d/t drug interactions, changing PO intake, and difficulty titrating for acute hyper/hypoglycemia. ADA recommends re-initiating outpatient oral agents 1-2 days prior to discharge if/when appropriate if they were held on admission. * Will hold oral agents for admission and utilize SQ basal bolus insulin regimen which is the recommended regimen for inpatient glycemic control. * Will initiate weight based insulin dosing for insulin yumiko patient and titrate based on BSG trends. * Patient has had 0 units of insulin since admission, blood sugars above goal, 175-252mg/dl in the past 24 hours PLAN FOR INPATIENT GLYCEMIC CONTROL: * Hold outpatient oral diabetes medications * Basal insulin * Lantus 15 units SQ qAM * Bolus insulin + Novolog 4 units q4 (hold if BSG < 140 mg/dL and/or dextrose infusion stopped) * NovoLog per scale ACHS or Q6hrs while NPO * Goal Range: Low 110 mg/dL - High 140 mg/dL * Correction Factor: 20 mg/dL/unit * Nutritional / Prandial insulin per carb ratio of 1 unit per 3.5 grams CHO consumed PLAN FOR DISCHARGE: * HbA1C is reasonable for patient's comorbidities. He has had significant blood loss recently so this may affect HbA1C. * Reasonable to check BSGs at various times to establish true blood sugar control and adjust as needed.
--- NOTE | 2020-09-29 22:52 | Hospitalist Progress Note ---
Date of Service September 29, 2020 Assessment & Plan (1) Acute GI bleeding: Plan: Dark red blood per rectum. Secondary to x2 colon masses. S/p Open subtotal colectomy by Dr Alvarze 09/27, NG tube now removed and diet per surgery recommendations s/p 2 units PRBC. Hgb stable, will continue to do labs daily. Continue D5W while NPO Continue pantoprazole 40 mg IV BID Hgb stable (2) Acute blood loss anemia: Plan: as above (3) Community acquired bacterial pneumonia: Plan: X-ray of chest shows: Mild progression of left lower lobe consolidation which favors pneumonia. Video swallow to be completed after surgery per speech recommendations - scheduled for Thursday as long as eating and drinking at that time. Continue ceftriaxone (azithromycin one dose given on 09/22 but subsequently discontinued), last dose 09/30 (4) Acute pain of right knee: Plan: this appears to be a chronic problem, will monitor (5) Diabetes mellitus with kidney complication: Plan: HbA1C 7.5 basal bolus insulin and glycemic consult (6) Urothelial carcinoma of bladder: Plan: urostomy on right abdomen (7) Dyslipidemia: Plan: will resume home meds once able to take oral (8) Hypertension: Plan: Holding anti-hypertensives and monitoring due to blood loss/surgery BP stable off home meds (9) Paroxysmal atrial fibrillation: Plan: NSR 80s with PVCs when he was on telemetry Heparin currently for VTE prophylaxis, switch to apixaban once bowel working. (10) Thrombocytopenia: Plan: history of above problem, resolved Plan: VTE prophylaxis - heparin 5000 units SQ BID Admission and Anticipated Discharge Date Admission Date: September 18, 2020 Subjective Doing well. Updated his at bedside. No acute events overnight. Passing flatus but no BM. No nausea or vomiting. Abdominal pain on coughing only. No melena or bright red blood in stool. No chest pain or shortness of breath. Review of Systems Review of Systems: All systems reviewed & are unremarkable except as noted in HPI & below Physical Exam Constitutional: WD/WN, vitals as above Respiratory: normal respiratory effort, lungs clear to auscultation Cardiovascular: Rate/Rhythm: regular rate and + irregularly irregular Gastrointestinal (Abdomen): Inspection/Auscultation: + abdomen distended Percussion/Palpation: + abdomen tender (generalized over operation site) and abdomen soft Urostomy draining clear urine Musculoskeletal: no cyanosis or clubbing, extremities motor strength 5/5 Skin: no rashes, warm and dry Neurologic: moves all extremities and awake; not confused Psychiatric: A+Ox3, euthymic affect Results & Data Results & Data ([facility]) Vital Signs (Past 12 Hours) Vital Signs Temp Pulse Pulse Resp BP BP Pulse Ox 09/29/20 15:45 36.7 C 67 18 143/76 H 94 09/29/20 14:42 92 H 09/29/20 11:00 36.8 C 76 18 149/71 H 98 PG Care Time/CCT Total # of Minutes Spent Total Time Spent with Patient: Total time spent is greater than 50% in coordination of care (as documented) at patient's floor/unit and/or counseling patient: Coding Level of Care Code 09938 Subseq Hosp Care Lvl 2 Diagnoses Acute GI bleeding K92.2 Community acquired bacterial pneumonia J15.9 Acute pain of right knee M25.561 Diabetes mellitus with kidney complication E11.29 Urothelial carcinoma of bladder C67.9 Dyslipidemia E78.5 Hypertension I10 Thrombocytopenia D69.6 Acute blood loss anemia D62 Paroxysmal atrial fibrillation I48.0
[2020-09-30] MEDS: INSULIN ASPART 100 UNITS/ML 3 ML PEN SC SCH ×8 (03:41→20:32)
[2020-09-30] MEDS: ACETAMINOPHEN 1,000 MG/100 ML VIAL IV SCH (04:55)
[2020-09-30 06:53] LABS: Hematocrit (blood only) 28.7 % (42-52); Hemoglobin 8.9 g/dL (14.0-18.0); Mean Corpuscular Hemoglobin 26.1 pg (25-34); Mean Corpuscular Volume 84.2 fL (80-100); Mean Platelet Volume 10.1 fL (7.4-10.4); Platelet Count 281 K/uL (130-400); RDW Coefficient of Variation 16.2 % (11.5-14.5); RDW Standard Deviation 49.9 fL (36.4-46.3); Red Blood Count 3.41 M/uL (4.7-6.1); White Blood Count 9.34 K/uL (4.8-10.8)
--- NOTE | 2020-09-30 07:09 | Surgery Progress Note ---
Date of Service September 30, 2020 Assessment & Plan (1) H/O colectomy: Plan: Patient awake and alert His vital signs are stable His abdomen is flat and soft We will begin clear liquids His H&H is stable Try to get him mobilized some Overall he is doing very well Admission and Anticipated Discharge Date Admission Date: September 18, 2020 Results & Data ([facility]) Vital Signs (Past 12 Hours) Vital Signs Temp Pulse Resp BP Pulse Ox 09/29/20 23:21 36.8 C 78 16 152/79 H 95 PG Care Time/CCT Total # of Minutes Spent Total Time Spent with Patient: Total time spent is greater than 50% in coordination of care (as documented) at patient's floor/unit and/or counseling patient: Coding Level of Care Code None Diagnoses H/O colectomy Z90.49
[2020-09-30 07:22] LABS: BUN Creatinine Ratio 12.1 (10-20); Calcium 8.7 mg/dl (8.5-10.1); Creatinine Clr Calc Pharmacy 45.5 ml/min; Est GFR (African American) 62.3 ml/min; Est GFR (Non-African American) 53.7 ml/min; Potassium 3.7 mmol/L (3.5-5.1)
[2020-09-30] MEDS: FLUTICASONE PROPIONATE NA SPR 16 GM BTL NAE SCH ×2 (10:12→20:28)
[2020-09-30] MEDS: guaiFENesin 600 MG TABCR PO SCH ×2 (10:12→20:28)
[2020-09-30] MEDS: DEXTROSE 5% 1,000 ML IV SCH (10:17)
[2020-09-30] MEDS: PANTOprazole 40 MG in SYRINGE 0 ML IV SCH ×2 (10:21→20:32)
[2020-09-30] MEDS: cefTRIAXone SODIUM 2,000 MG in DEXTROSE 5% 50 ML IV SCH (10:24)
[2020-09-30] MEDS: HEPARIN SOD 5,000 UNIT/0.5 ML VIAL SQ SCH ×2 (10:26→20:28)
[2020-09-30] MEDS: INSULIN GLARGINE SOLOSTAR 100 UNITS/ML 3 ML PEN SC SCH (10:30)
--- NOTE | 2020-09-30 22:15 | Hospitalist Progress Note ---
Date of Service September 30, 2020 Assessment & Plan (1) Acute GI bleeding: Plan: Dark red blood per rectum. Secondary to x2 colon masses. S/p Open subtotal colectomy by Dr Alvarez 09/27, NG tube now removed and diet per surgery recommendations s/p 2 units PRBC 09/18. Hgb stable, will continue to do labs daily. Continue D5W - agree with reduced rate now tolerating clear liquids. VS stable Pantoprazole 40 mg IV BID, given normal EGD I think this can be safely switched to famotidine 20mg IV daily, start on PO once bowels known to be working (2) Colon adenocarcinoma: Plan: Invasive well-differentiated adenocarcinoma on colonoscopy biopsy Awaiting pathology on surgical biopsy (3) Acute blood loss anemia: Plan: as above (4) Community acquired bacterial pneumonia: Plan: X-ray of chest shows: Mild progression of left lower lobe consolidation which favors pneumonia. Continue ceftriaxone (azithromycin one dose given on 09/22 but subsequently discontinued), last dose today. Video swallow to be completed after surgery per speech recommendations - scheduled for Thursday as long as eating and drinking at that time. (5) Acute pain of right knee: Plan: this appears to be a chronic problem, will monitor (6) Diabetes mellitus with kidney complication: Plan: HbA1C 7.5 basal bolus insulin and glycemic consult (7) Urothelial carcinoma of bladder: Plan: urostomy on right abdomen - draining clear yellow urine (8) Dyslipidemia: Plan: will resume home meds once able to take oral (9) Hypertension: Plan: Holding anti-hypertensives and monitoring due to blood loss/surgery BP stable off home meds (10) Paroxysmal atrial fibrillation: Plan: NSR 80s with PVCs when he was on telemetry, irrefular hear rhythm suspected ongoing PVCs rather than a. fib Heparin currently for VTE prophylaxis, switch to apixaban once able to take PO (11) Thrombocytopenia: Plan: history of above problem, resolved Plan: VTE prophylaxis - heparin 5000 units SQ BID, switch back to his usual apixaban once able to take PO Admission and Anticipated Discharge Date Admission Date: September 18, 2020 Subjective Advanced to clear liquid diet by surgery today. He reports no nausea or vomiting or increasing abdominal pain related to this. Abdominal pain still with coughing or any movement. Walker +1 assist. Urostomy draining clear yellow urine. Concerning that he reports not passing any flatus today although is unsure regarding this. No bowel movement since the operation. Review of Systems Review of Systems: All systems reviewed & are unremarkable except as noted in HPI & below Physical Exam Constitutional: WD/WN, vitals as above ENMT: Mouth: oral mucous membranes not dry Respiratory: normal respiratory effort, lungs clear to auscultation Cardiovascular: Rate/Rhythm: regular rate and + irregularly irregular Gastrointestinal (Abdomen): Inspection/Auscultation: + abdomen distended Percussion/Palpation: + abdomen tender (generalized over operation site) and abdomen soft Urostomy draining clear urine Musculoskeletal: no cyanosis or clubbing, extremities motor strength 5/5 Skin: no rashes, warm and dry Neurologic: moves all extremities and awake; not confused Psychiatric: A+Ox3, euthymic affect Results & Data Results & Data ([facility]) Vital Signs (Past 12 Hours) Vital Signs Temp Pulse Resp BP Pulse Ox 09/30/20 16:06 36.6 C 71 17 132/80 94 PG Care Time/CCT Total # of Minutes Spent Total Time Spent with Patient: Total time spent is greater than 50% in coordi [place] of care (as documented) at patient's floor/unit and/or counseling patient: Coding Level of Care Code 63119 Subseq Hosp Care Lvl 2 Diagnoses Acute GI bleeding K92.2 Acute blood loss anemia D62 Community acquired bacterial pneumonia J15.9 Acute pain of right knee M25.561 Diabetes mellitus with kidney complication E11.29 Urothelial carcinoma of bladder C67.9 Dyslipidemia E78.5 Hypertension I10 Paroxysmal atrial fibrillation I48.0 Thrombocytopenia D69.6 Colon adenocarcinoma C18.9
[2020-10-01] MEDS: DEXTROSE 5% 1,000 ML IV SCH (05:21)
[2020-10-01 07:42] LABS: Hematocrit (blood only) 32.1 % (42-52); Hemoglobin 9.9 g/dL (14.0-18.0); Mean Corpuscular Hemoglobin 26.1 pg (25-34); Mean Corpuscular Hgb Conc 30.8 g/dL (32-36); Mean Corpuscular Volume 84.5 fL (80-100); Mean Platelet Volume 10.2 fL (7.4-10.4); Platelet Count 333 K/uL (130-400); RDW Coefficient of Variation 16.2 % (11.5-14.5); RDW Standard Deviation 49.8 fL (36.4-46.3); White Blood Count 10.21 K/uL (4.8-10.8)
[2020-10-01 08:21] LABS: BUN Creatinine Ratio 12.8 (10-20); Calcium 8.6 mg/dl (8.5-10.1); Creatinine Clr Calc Pharmacy 37.9 ml/min; Potassium 3.9 mmol/L (3.5-5.1)
[2020-10-01] MEDS ORDERED: ACETAMINOPHEN 325 MG TAB PO PRN (08:23)
[2020-10-01] MEDS ORDERED: oxyCODONE HCL IR 5 MG TAB (IMMEDIATE RELEASE) PO PRN (08:23)
--- NOTE | 2020-10-01 08:29 | Surgery Progress Note ---
Date of Service October 01, 2020 Assessment & Plan (1) H/O colectomy: Plan: POD#4 subtotal colectomy Overall pt doing well Hbg stable at 9.9. Cr up some today to 1.4 Tolerating clears. No flatus/BM yet...will await return of some bowel function prior to advancing further Pt to get out of bed to chair and ambulating today. Physical therapy Admission and Anticipated Discharge Date Admission Date: September 18, 2020 Supervising Physician Co-Signing Physician Notes 10/01/20 4th pod as per Clarissa alicia abd slightly distended non tender sub cut and ni drain removed will back off oral intake may have sips and chils Subjective Patient feeling okay this AM. Denies abdominal pain at rest, but notices it with movement. He is tolerating clears, no N/V. No flatus/BM yet. Physical Exam Physical Exam: awake/alert Gastrointestinal (Abdomen): Inspection/Auscultation: + abdominal surgical incision (c/d/i no signs of infection) and + abdominal surgical drain present (serosang); abdomen not distended Percussion/Palpation: abdomen soft; abdomen nontender urostomy with + urine Results & Data ([facility]) Vital Signs (Past 12 Hours) Vital Signs Temp Pulse Resp BP BP Pulse Ox 10/01/20 07:58 36.9 C 63 18 148/92 H 94 09/30/20 22:48 36.7 C 93 H 16 164/89 H 94 PG Care Time/CCT Total # of Minutes Spent Total Time Spent with Patient: Total time spent is greater than 50% in coordination of care (as documented) at patient's floor/unit and/or counseling patient: Coding Level of Care Code None Diagnoses H/O colectomy Z90.49
--- NOTE | 2020-10-01 09:28 | Hospitalist Progress Note ---
Date of Service October 01, 2020 Assessment & Plan (1) Acute GI bleeding: Plan: Dark red blood per rectum. Secondary to x2 colon masses. S/p Open subtotal colectomy by Dr Alvarez 09/27, flatus no stool surgery has on ice chips and sips s/p 2 units PRBC 09/18. Hgb stable, will continue to do labs daily. VS stable Pantoprazole 40 mg IV BID, given normal EGD I think this can be safely switched to famotidine 20mg IV daily, start on PO once bowels known to be working (2) Colon adenocarcinoma: Plan: Invasive well-differentiated adenocarcinoma on colonoscopy biopsy Awaiting pathology on surgical biopsy (3) Acute blood loss anemia: Plan: as above (4) Community acquired bacterial pneumonia: Plan: X-ray of chest shows: left lower lobe consolidation which favored pneumonia. Continue ceftriaxone (azithromycin one dose given on 09/22 but subsequently discontinued), last dose today. Video swallow postponed bedside evaluation was good the patient also was not eating diet yet will consider rescheduling once taking p.o. reliably (5) Acute pain of right knee: Plan: this appears to be a chronic problem, will monitor (6) Diabetes mellitus with kidney complication: Plan: HbA1C 7.5 basal bolus insulin and glycemic consult (7) Urothelial carcinoma of bladder: Plan: urostomy on right abdomen - draining clear yellow urine (8) Dyslipidemia: Plan: will resume home meds once able to take oral (9) Hypertension: Plan: Holding anti-hypertensives and monitoring due to blood loss/surgery BP stable off home meds (10) Paroxysmal atrial fibrillation: Plan: NSR 80s with PVCs when he was on telemetry, irrefular hear rhythm suspected ongoing PVCs rather than a. fib Heparin currently for VTE prophylaxis, switch to apixaban once able to take PO (11) Thrombocytopenia: Plan: history of above problem, resolved Plan: VTE prophylaxis - heparin 5000 units SQ BID, switch back to his usual apixaban once able to take PO Admission and Anticipated Discharge Date Admission Date: September 18, 2020 Subjective Patient seen in presence of his he is actually quite good spirits when he awakens he remember seeing me earlier in his hospital stay his coughing is much less his abdominal pain is in good control and his urostomy output on his right lower abdomen is working fine Review of Systems Review of Systems: Mild distress and fatigue no headache, no visual changes no speech or swallowing issues no chest pain, pressure or palpitations no shortness of breath, cough or wheezes Controlled abdominal pain and functioning urostomy which is chronic, flatus but no stool no dysuria, hematuria or frequency no focal joint pain or swelling no back pain, CVA tenderness or radicular pain no bruising, bleeding or rashes no focal signs of weakness or numbness or altered sensation no complaints of anxiety or depression.. Physical Exam Physical Exam: The patient appeared fatigued but better than stated age doing well Vital signs as documented. Head exam is normocephalic atraumatic Neck is without JVD, thyromegaly, or carotid bruits. Lungs are clear to auscultation, no focal loss of breath sounds Cardiac exam, Rhythm is regular.. No murmurs, rubs or gallops. Abdominal exam reveals normal bowel sounds, soft non tender, no masses Healing midline incisional scar with some serosanguineous drainage from the inferior margin. Urostomy is in place Extremities are nonedematous and both pedal pulses are present Neurologic exam is alert and oriented, no focal loss of strength or sensation Skin is without bruises or rashes exception of the surgical sites Psychologically is without concerns for anxiety or depression Results & Data Results & Data ([facility]) Vital Signs (Past 12 Hours) Vital Signs Temp Pulse Resp BP BP Pulse Ox 10/01/20 07:58 98.4 F 63 18 148/92 H 94 09/30/20 22:48 98.1 F 93 H 16 164/89 H 94 PG Care Time/CCT Total # of Minutes Spent Total Time Spent with Patient: Total time spent is greater than 50% in coordination of care (as documented) at patient's floor/unit and/or counseling patient: Coding Level of Care Code 24536 Subseq Hosp Care Lvl 3 Diagnoses Acute GI bleeding K92.2 Colon adenocarcinoma C18.9 Acute blood loss anemia D62 Community acquired bacterial pneumonia J15.9 Acute pain of right knee M25.561 Diabetes mellitus with kidney complication E11.29 Urothelial carcinoma of bladder C67.9 Dyslipidemia E78.5 Hypertension I10 Paroxysmal atrial fibrillation I48.0 Thrombocytopenia D69.6
[2020-10-01] MEDS: FLUTICASONE PROPIONATE NA SPR 16 GM BTL NAE SCH ×2 (09:36→20:10)
[2020-10-01] MEDS: guaiFENesin 600 MG TABCR PO SCH ×2 (09:38→20:11)
[2020-10-01] MEDS: HEPARIN SOD 5,000 UNIT/0.5 ML VIAL SQ SCH ×2 (09:39→20:11)
[2020-10-01] MEDS: INSULIN ASPART 100 UNITS/ML 3 ML PEN SC SCH ×5 (10:41→20:10)
[2020-10-01] MEDS: INSULIN GLARGINE SOLOSTAR 100 UNITS/ML 3 ML PEN SC SCH (10:42)
[2020-10-01] MEDS: FAMOTIDINE 20 MG in SYRINGE 3 ML IV SCH (10:43)
[2020-10-01] MEDS ORDERED: SODIUM CHLOR 0.45% + 20MEQ KCL 20 MEQ/1,000 ML BAG IV SCH (11:30)
[2020-10-01] MEDS ORDERED: Nursing to Pharmacy Communication SCH (11:45)
--- NOTE | 2020-10-01 15:10 | Pharmacy Report ---
Pharmacy Glycemic Short Note 2 - Date of Service October 01, 2020 - Glycemic Short BSG Results (Last 24 hours): 09/29/20 09/29/20 09/30/20 15:48 22:58 03:35 Glucose POC Glucose 148 H 104 H 105 H 09/30/20 09/30/20 10/01/20 16:46 20:31 06:57 Glucose 191 H POC Glucose 81 123 H 10/01/20 10/01/20 07:43 12:06 Glucose POC Glucose 219 H 241 H OUTPATIENT ANTIDIABETIC REGIMEN: * Glipizide XL 10mg PO daily ASSESSMENT: 10/01/20 * Patient's BSGs yesterday were [phone]. He received 46 units of insulin (20 units of Lantus and 20 units of Novolog). * Patient remained on dextrose @ 50 cc/hr until around midmorning today. * Fasting BSG was 219 mg/dL and lunch BSG was 241 mg/dL. * Gave Lantus 20 units. * Tighten Novolog CF. Patient is NPO. Expect that elevated BSGs was due to dextrose infusion which is now cut. Q4 Novolog until BSGs more controlled. 09/29/20: * Pt received 40 units of insulin yesterday (20 units of basal and 20 units of bolus) * Pt remains NPO. He is allowed sips of liquid only. Also continues on dextrose infusion @ 80 ml/hr. Will continue set dose of Novolog q4h to cover for dextrose in fluids. * Fasting BSG of 158 mg/dL is near goal and trending downward (although not a true fasting with dextrose infusing). Will decrease basal insulin 25% for today. May resume 20 units daily once diet resumed. 09/28/20 * Patient's BSGs yesterday were [phone] and overnight were 167-161. Fasting today was 163 mg/dL. * Patient received 43 units of insulin yesterday - 20 units of basal and 23 units of bolus * Give patient Lantus 20 units this morning since fasting is steady. * Dextrose @ 100 cc/hr started around lunchtime. Patient is very carbohydrate sensitive. This represents about 20 grams in 4 hours which for him would be 7 units of Novolog. To be proactive especially in postoperative state, start with scheduled Novolog 4 units q4 hours (hold if BSG < 140 mg/dL and/or if dextrose is d/c'ed). Have hold parameter in case dextrose does not affect BSGs as planned. * Continue CF. Background: * 85 year old male admitted with GI bleed, colonic mass, surgery planned likely for Thursday * Type 2 diabetic maintained on oral antidiabetic agents as an outpatient * Oral agents are not recommended for inpatient use d/t drug interactions, changing PO intake, and difficulty titrating for acute hyper/hypoglycemia. ADA recommends re-initiating outpatient oral agents 1-2 days prior to discharge if/when appropriate if they were held on admission. * Will hold oral agents for admission and utilize SQ basal bolus insulin regimen which is the recommended regimen for inpatient glycemic control. * Will initiate weight based insulin dosing for insulin yumiko patient and titrate based on BSG trends. * Patient has had 0 units of insulin since admission, blood sugars above goal, 175-252mg/dl in the past 24 hours PLAN FOR INPATIENT GLYCEMIC CONTROL: * Hold outpatient oral diabetes medications * Basal insulin * Lantus 20 units SQ qAM * Bolus insulin * NovoLog per scale ACHS or Q6hrs while NPO * Goal Range: Low 110 mg/dL - High 140 mg/dL * Correction Factor: 15 mg/dL/unit * Nutritional / Prandial insulin per carb ratio of 1 unit per 3.5 grams CHO consumed PLAN FOR DISCHARGE: * HbA1C is reasonable for patient's comorbidities. He has had significant blood loss recently so this may affect HbA1C. * Reasonable to check BSGs at various times to establish true blood sugar control and adjust as needed.
[2020-10-02] MEDS: INSULIN ASPART 100 UNITS/ML 3 ML PEN SC SCH ×6 (00:38→21:04)
[2020-10-02] MEDS: D5NSS + 20MEQ KCL 20 MEQ/1,000 ML BAG IV SCH ×3 (01:17→23:10)
[2020-10-02 07:19] LABS: Hematocrit (blood only) 31.7 % (42-52); Hemoglobin 9.8 g/dL (14.0-18.0); Mean Corpuscular Hemoglobin 25.9 pg (25-34); Mean Corpuscular Hgb Conc 30.9 g/dL (32-36); Mean Corpuscular Volume 83.9 fL (80-100); Mean Platelet Volume 10.4 fL (7.4-10.4); Platelet Count 307 K/uL (130-400); RDW Coefficient of Variation 16.2 % (11.5-14.5); RDW Standard Deviation 49.6 fL (36.4-46.3); Red Blood Count 3.78 M/uL (4.7-6.1)
[2020-10-02 07:49] LABS: BUN Creatinine Ratio 15.3 (10-20); Calcium 8.3 mg/dl (8.5-10.1); Creatinine Clr Calc Pharmacy 38.4 ml/min; Est GFR (African American) 51.8 ml/min; Est GFR (Non-African American) 44.7 ml/min; Potassium 4.2 mmol/L (3.5-5.1)
[2020-10-02] MEDS: HEPARIN SOD 5,000 UNIT/0.5 ML VIAL SQ SCH ×2 (08:35→21:02)
[2020-10-02] MEDS: guaiFENesin 600 MG TABCR PO SCH ×2 (08:35→21:02)
[2020-10-02] MEDS: FLUTICASONE PROPIONATE NA SPR 16 GM BTL NAE SCH ×2 (08:36→21:01)
[2020-10-02] MEDS: INSULIN GLARGINE SOLOSTAR 100 UNITS/ML 3 ML PEN SC SCH (08:37)
[2020-10-02] MEDS: FAMOTIDINE 20 MG in SYRINGE 3 ML IV SCH (08:39)
--- NOTE | 2020-10-02 09:10 | Surgery Progress Note ---
Date of Service October 02, 2020 Assessment & Plan (1) H/O colectomy: Plan: POD#5 subtotal colectomy bowel function slow to return will check KUB and CXR increase IVF while NPO seen with Dr. Alvarez Admission and Anticipated Discharge Date Admission Date: September 18, 2020 Subjective not much flatus, no BM, no nausea Physical Exam Gastrointestinal (Abdomen): Inspection/Auscultation: + abdomen distended (slight) and + abdominal surgical incision (dry, no erythema) Percussion/Palpation: abdomen soft Results & Data ([facility]) Vital Signs (Past 12 Hours) Vital Signs Temp Pulse Pulse Resp BP BP Pulse Ox 10/02/20 07:59 36.6 C 97 H 16 149/80 H 94 10/01/20 22:22 36.9 C 81 17 137/78 93 PG Care Time/CCT Total # of Minutes Spent Total Time Spent with Patient: Total time spent is greater than 50% in coordination of care (as documented) at patient's floor/unit and/or counseling patient: Coding Level of Care Code None Diagnoses H/O colectomy Z90.49
--- NOTE | 2020-10-02 10:12 | Hospitalist Progress Note ---
Date of Service October 02, 2020 Assessment & Plan (1) Acute GI bleeding: Plan: Initial rectal bleeding from colon masses. S/p Open subtotal colectomy by Dr Alvarez 09/27, acute blood loss anemia s/p 2 units PRBC 09/18. Hgb stable, VS stable on pepcid daily (2) Colon adenocarcinoma: Plan: Invasive well-differentiated adenocarcinoma on colonoscopy biopsy Awaiting pathology on surgical biopsy (3) Postoperative ileus: Plan: pos op ileus, surgery has made npo. continues on ivf bowel movement 10/02 Present on Admission?: No (4) Acute blood loss anemia: Plan: as above (5) Community acquired bacterial pneumonia: Plan: Resolved. Previous x-ray of chest shows: left lower lobe consolidation which favored pneumonia. Continue ceftriaxone (azithromycin one dose given on 09/22 but subsequently discontinued), completed course Video swallow postponed bedside evaluation was good the patient also was not eating diet yet will consider rescheduling once taking p.o. reliably (6) Acute pain of right knee: Plan: this appears to be a chronic problem, will monitor (7) Diabetes mellitus with kidney complication: Plan: HbA1C 7.5 basal bolus insulin and glycemic consult (8) Urothelial carcinoma of bladder: Plan: urostomy on right abdomen - draining clear yellow urine (9) Dyslipidemia: Plan: will resume home meds once able to take oral (10) Hypertension: Plan: Holding anti-hypertensives and monitoring due to blood loss/surgery BP stable off home meds (11) Paroxysmal atrial fibrillation: Plan: NSR 80s with PVCs when he was on telemetry, irrefular hear rhythm suspected ongoing PVCs rather than a. fib Heparin currently subcu for VTE prophylaxis, switch to apixaban once able to take PO (12) Thrombocytopenia: Plan: history of above problem, resolved Plan: VTE prophylaxis - heparin 5000 units SQ BID, switch back to his usual apixaban once able to take PO Admission and Anticipated Discharge Date Admission Date: September 18, 2020 Subjective Patient produced liquid dark BM on 727 surgery in charge of advancement of diet Review of Systems Review of Systems: Mild distress and fatigue no headache, no visual changes no speech or swallowing issues no chest pain, pressure or palpitations no shortness of breath, cough or wheezes Controlled abdominal pain and functioning urostomy which is chronic, flatus but no stool no dysuria, hematuria or frequency no focal joint pain or swelling no back pain, CVA tenderness or radicular pain no bruising, bleeding or rashes no focal signs of weakness or numbness or altered sensation no complaints of anxiety or depression.. Eyes: no diplopia Ear, Nose, Mouth, Throat: no ear pain Respiratory: + cough Cardiovascular: no chest pain Gastrointestinal: no abdominal pain Genitourinary: no dysuria Musculoskeletal: no radicular pain Integumentary: no rash Neurologic: no falls Psychiatric: no anhedonia Endocrine: no polydipsia Hematologic / Lymphatic: no easy bleeding Physical Exam Physical Exam: The patient appeared fatigued but better than stated age doing well Vital signs as documented. Head exam is normocephalic atraumatic Neck is without JVD, thyromegaly, or carotid bruits. Lungs are clear to auscultation, no focal loss of breath sounds Cardiac exam, Rhythm is regular.. No murmurs, rubs or gallops. Abdominal exam reveals normal bowel sounds, soft non tender, no masses Healing midline incisional scar with some serosanguineous drainage from the inferior margin. Urostomy is in place Extremities are nonedematous and both pedal pulses are present Neurologic exam is alert and oriented, no focal loss of strength or sensation Skin is without bruises or rashes exception of the surgical sites Psychologically is without concerns for anxiety or depression Results & Data Results & Data ([facility]) Vital Signs (Past 12 Hours) Vital Signs Temp Pulse Pulse Resp BP BP Pulse Ox 10/02/20 07:59 97.9 F 97 H 16 149/80 H 94 10/01/20 22:22 98.4 F 81 17 137/78 93 PG Care Time/CCT Total # of Minutes Spent Total Time Spent with Patient: Total time spent is greater than 50% in coordination of care (as documented) at patient's floor/unit and/or counseling patient: Coding Level of Care Code 43667 Subseq Hosp Care Lvl 2 Diagnoses Acute GI bleeding K92.2 Colon adenocarcinoma C18.9 Acute blood loss anemia D62 Community acquired bacterial pneumonia J15.9 Acute pain of right knee M25.561 Diabetes mellitus with kidney complication E11.29 Urothelial carcinoma of bladder C67.9 Dyslipidemia E78.5 Hypertension I10 Paroxysmal atrial fibrillation I48.0 Thrombocytopenia D69.6 Postoperative ileus K91.89; K56.7
--- NOTE | 2020-10-02 10:15 | XRay Report ---
XR chest 1V portable HISTORY: 85 years-old Male cough acute cough COMPARISON: Chest radiograph 09/26/2020, chest CT 09/20/2020 TECHNIQUE: Portable AP view of the chest FINDINGS: Cardiac silhouette is mildly enlarged. Calcified plaque of the thoracic aorta. No pneumothorax, pleur al effusion, airspace consolidation or overt pulmonary edema. Mild emphysema. Innumerable calcified g ranulomata of the lungs redemonstrated. Unchanged mild left lung base opacities. IMPRESSION: 1. Persistent mild retrocardiac opacities suggestive of atelectasis versus pneumonitis. 2. Innumerable calcified pulmonary granulomata redemonstrated. 3. Cardiomegaly. ACT 112: Negative or not required by law. The above report was generated using voice recognition software. It may contain grammatical, syntax o r spelling errors. Electronically signed by: Parish Robles M.D. 10/02/2020 10:13 AM
--- NOTE | 2020-10-02 11:54 | XRay Report ---
KUB CLINICAL HISTORY: post op distention COMPARISON STUDY: CT of the abdomen and pelvis September 20, 2020. FINDINGS: Incidental note is made of numerous small calcifications within the lower chest which are b enign. There are skin wally from laparotomy. Lower abdominal and pelvic surgical clips are noted. N ote is made of moderate dilatation of numerous small bowel loops. There is gas within the rectum. IMPRESSION: Numerous loops of moderately dilated small bowel. Gas within the rectum. The findings fa vor a postoperative ileus. ACT 112: Negative or not required by law. Electronically signed by: Den Lanza M.D. 10/02/2020 11:53 AM
[2020-10-02] MEDS ORDERED: Nursing to Pharmacy Communication SCH (17:30)
[2020-10-03] MEDS: FLUTICASONE PROPIONATE NA SPR 16 GM BTL NAE SCH ×2 (08:04→21:29)
[2020-10-03] MEDS: guaiFENesin 600 MG TABCR PO SCH ×2 (08:05→21:30)
[2020-10-03] MEDS: FAMOTIDINE 20 MG in SYRINGE 3 ML IV SCH (08:06)
[2020-10-03] MEDS: HEPARIN SOD 5,000 UNIT/0.5 ML VIAL SQ SCH ×2 (08:14→21:30)
--- NOTE | 2020-10-03 08:49 | Surgery Progress Note ---
Date of Service October 03, 2020 Assessment & Plan (1) H/O colectomy: Plan: POD#6 subtotal colectomy Patient starting to have + bowel function, passing some flatus and had a BM yesterday Diet was advanced to clears, will continue on clears for now and consider further advancement later today if doing well Encourage ongoing activity and pulmonary toilet Admission and Anticipated Discharge Date Admission Date: September 18, 2020 Subjective Patient feeling okay this AM. He is tolerating clear liquids without nausea/vomiting. He notes he not like the soup . He is passing flatus and had a BM yesterday. No abdominal pain at rest, but has some with movement. Physical Exam Physical Exam: awake/alert Respiratory: normal respiratory effort Gastrointestinal (Abdomen): Inspection/Auscultation: + abdominal surgical incision (dressings c/d/i) Percussion/Palpation: + abdomen tender (momo- incisional ttp) and abdomen soft Results & Data ([facility]) Vital Signs (Past 12 Hours) Vital Signs Temp Pulse Pulse Resp BP Pulse Ox 10/03/20 07:28 36.8 C 82 18 146/74 H 94 10/02/20 22:43 36.6 C 92 H 17 169/89 H 97 PG Care Time/CCT Total # of Minutes Spent Total Time Spent with Patient: Total time spent is greater than 50% in coordination of care (as documented) at patient's floor/unit and/or counseling patient: Coding Level of Care Code None Diagnoses H/O colectomy Z90.49
[2020-10-03 08:56] LABS: Hematocrit (blood only) 30.2 % (42-52); Hemoglobin 9.1 g/dL (14.0-18.0); Mean Corpuscular Hemoglobin 25.7 pg (25-34); Mean Corpuscular Hgb Conc 30.1 g/dL (32-36); Mean Corpuscular Volume 85.3 fL (80-100); Mean Platelet Volume 10.1 fL (7.4-10.4); Platelet Count 292 K/uL (130-400); RDW Coefficient of Variation 16.4 % (11.5-14.5); RDW Standard Deviation 50.6 fL (36.4-46.3); Red Blood Count 3.54 M/uL (4.7-6.1); White Blood Count 7.85 K/uL (4.8-10.8)
[2020-10-03] MEDS: INSULIN ASPART 100 UNITS/ML 3 ML PEN SC SCH ×8 (09:23→21:13)
[2020-10-03] MEDS: INSULIN GLARGINE SOLOSTAR 100 UNITS/ML 3 ML PEN SC SCH (09:24)
[2020-10-03 09:57] LABS: BUN Creatinine Ratio 15.3 (10-20); Calcium 8.1 mg/dl (8.5-10.1); Est GFR (African American) 61.1 ml/min; Est GFR (Non-African American) 52.7 ml/min; Potassium 4.3 mmol/L (3.5-5.1)
[2020-10-03] MEDS: D5NSS + 20MEQ KCL 20 MEQ/1,000 ML BAG IV SCH ×2 (11:34→21:29)
--- NOTE | 2020-10-03 15:26 | Pharmacy Report ---
Pharmacy Glycemic Short Note 2 - Date of Service October 03, 2020 - Glycemic Short BSG Results (Last 24 hours): 10/02/20 10/02/20 10/03/20 17:34 20:36 07:57 Glucose POC Glucose 235 H 196 H 186 H 10/03/20 10/03/20 08:07 11:50 Glucose 178 H POC Glucose 239 H OUTPATIENT ANTIDIABETIC REGIMEN: * Glipizide XL 10mg PO daily ASSESSMENT: 10/02/20: * Pt received total 31 units of insulin yesterday; 20 units basal + 11 units bolus. * Fasting BSG was high at 186 mg/dl. Basal insulin continued the same. * Post prandial BSGs also high. This is most likely due to the Dextrose in the IV fluids running at 100 cc/hr. This had caused hyperglycemia few days ago. * Resumed Novolog 4 units q4h (hold if BSG < 130 mg/dl) to cover the carbs in the fluids. Hold this Novolog if Dextrose is cut in the fluids. 10/01/20 * Patient's BSGs yesterday were [phone]. He received 46 units of insulin (20 units of Lantus and 20 units of Novolog). * Patient remained on dextrose @ 50 cc/hr until around midmorning today. * Fasting BSG was 219 mg/dL and lunch BSG was 241 mg/dL. * Gave Lantus 20 units. * Tighten Novolog CF. Patient is NPO. Expect that elevated BSGs was due to dextrose infusion which is now cut. Q4 Novolog until BSGs more controlled. 09/29/20: * Pt received 40 units of insulin yesterday (20 units of basal and 20 units of bolus) * Pt remains NPO. He is allowed sips of liquid only. Also continues on dextrose infusion @ 80 ml/hr. Will continue set dose of Novolog q4h to cover for dextrose in fluids. * Fasting BSG of 158 mg/dL is near goal and trending downward (although not a true fasting with dextrose infusing). Will decrease basal insulin 25% for today. May resume 20 units daily once diet resumed. 09/28/20 * Patient's BSGs yesterday were [phone] and overnight were 167-161. Fasting today was 163 mg/dL. * Patient received 43 units of insulin yesterday - 20 units of basal and 23 units of bolus * Give patient Lantus 20 units this morning since fasting is steady. * Dextrose @ 100 cc/hr started around lunchtime. Patient is very carbohydrate sensitive. This represents about 20 grams in 4 hours which for him would be 7 units of Novolog. To be proactive especially in postoperative state, start with scheduled Novolog 4 units q4 hours (hold if BSG < 140 mg/dL and/or if dextrose is d/c'ed). Have hold parameter in case dextrose does not affect BSGs as planned. * Continue CF. Background: * 85 year old male admitted with GI bleed, colonic mass, surgery planned likely for Thursday * Type 2 diabetic maintained on oral antidiabetic agents as an outpatient * Oral agents are not recommended for inpatient use d/t drug interactions, changing PO intake, and difficulty titrating for acute hyper/hypoglycemia. ADA recommends re-initiating outpatient oral agents 1-2 days prior to discharge if/when appropriate if they were held on admission. * Will hold oral agents for admission and utilize SQ basal bolus insulin regimen which is the recommended regimen for inpatient glycemic control. * Will initiate weight based insulin dosing for insulin yumiko patient and titrate based on BSG trends. * Patient has had 0 units of insulin since admission, blood sugars above goal, 175-252mg/dl in the past 24 hours PLAN FOR INPATIENT GLYCEMIC CONTROL: * Hold outpatient oral diabetes medications * Basal insulin: continued * Lantus 20 units SQ qAM * Bolus insulin * NovoLog per scale ACHS or Q6hrs while NPO * Goal Range: Low 110 mg/dL - High 140 mg/dL * Correction Factor: 15 mg/dL/unit * Nutritional / Prandial insulin per carb ratio of 1 unit per 3.5 grams CHO consumed * Additional 4 units of Novolog added if BSG >/= 130 q4h to cover carbs in dextrose IV fluids. PLAN FOR DISCHARGE: * HbA1C is reasonable for patient's comorbidities. He has had significant blood loss recently so this may affect HbA1C. * Reasonable to check BSGs at various times to establish true blood sugar control and adjust as needed.
[2020-10-03] MEDS: CARBOHYDRATES FOR HYPOGLYCEMIA PO PRN (17:13)
--- NOTE | 2020-10-03 18:22 | Hospitalist Progress Note ---
Date of Service October 03, 2020 Assessment & Plan (1) Postoperative ileus: Plan: pos op ileus, surgery clear liquids, bowel movement 10/02 surgery is in charge of advancing diet (2) Acute GI bleeding: Plan: Initial rectal bleeding from colon masses. S/p Open subtotal colectomy by Dr Alvarez 09/27, acute blood loss anemia s/p 2 units PRBC 09/18. Hgb stable, VS stable on pepcid daily (3) Colon adenocarcinoma: Plan: Invasive well-differentiated adenocarcinoma on colonoscopy biopsy pathology on surgical biopsy two separate primary adenocarcinomas will need onc referal to consider treatment once recovered (4) Acute blood loss anemia: Plan: stable (5) Community acquired bacterial pneumonia: Plan: Resolved. Previous x-ray of chest shows: left lower lobe consolidation which favored pneumonia. Continue ceftriaxone (azithromycin one dose given on 09/22 but subsequently discontinued), completed course Video swallow postponed bedside evaluation was good the patient also was not eat ing diet yet will consider rescheduling once taking p.o. reliably (6) Acute pain of right knee: Plan: this appears to be a chronic problem, will monitor (7) Diabetes mellitus with kidney complication: Plan: HbA1C 7.5 basal bolus insulin and glycemic consult (8) Urothelial carcinoma of bladder: Plan: urostomy on right abdomen - draining clear yellow urine (9) Dyslipidemia: Plan: will resume home meds once able to take oral (10) Hypertension: Plan: Holding anti-hypertensives and monitoring due to blood loss/surgery BP stable off home meds (11) Paroxysmal atrial fibrillation: Plan: NSR 80s with PVCs when he was on telemetry, irrefular hear rhythm suspected ongoing PVCs rather than a. fib Heparin currently subcu for VTE prophylaxis, switch to apixaban once able to ta ke PO (12) Thrombocytopenia: Plan: history of above problem, resolved Plan: VTE prophylaxis - heparin 5000 units SQ BID, switch back to his usual apixaban once able to take PO Admission and Anticipated Discharge Date Admission Date: September 18, 2020 Subjective pt is eating clears and getting sick of them, will ask for dietary consult, surg alecia is in charge of advancing diet Review of Systems Review of Systems: Mild distress and fatigue no headache, no visual changes no speech or swallowing issues no chest pain, pressure or palpitations no shortness of breath, cough or wheezes mild but Controlled abdominal pain and functioning urostomy which is chronic, flatus, loose stool 10/02 no dysuria, hematuria or frequency no focal joint pain or swelling no back pain, CVA tenderness or radicular pain no bruising, bleeding or rashes no focal signs of weakness or numbness or altered sensation no complaints of anxiety or depression.. Physical Exam Physical Exam: The patient appeared fatigued but better than stated age doing well Vital signs as documented. Head exam is normocephalic atraumatic Neck is without JVD, thyromegaly, or carotid bruits. Lungs are clear to auscultation, no focal loss of breath sounds Cardiac exam, Rhythm is regular.. No murmurs, rubs or gallops. Abdominal exam reveals normal bowel sounds, soft non tender, no masses Healing midline incisional scar with some serosanguineous drainage from the inferior margin. Urostomy is in place Extremities are nonedematous and both pedal pulses are present Neurologic exam is alert and oriented, no focal loss of strength or sensation Skin is without bruises or rashes exception of the surgical sites Psychologically is without concerns for anxiety or depression Results & Data Results & Data ([facility]) Vital Signs (Past 12 Hours) Vital Signs Temp Pulse Resp BP Pulse Ox 10/03/20 14:52 97.5 F L 74 16 143/63 H 97 10/03/20 07:28 98.2 F 82 18 146/74 H 94 PG Care Time/CCT Total # of Minutes Spent Total Time Spent with Patient: Total time spent is greater than 50% in coordination of care (as documented) at patient's floor/unit and/or counseling p atient: Coding Level of Care Code 69173 Subseq Hosp Care Lvl 2 Diagnoses Acute GI bleeding K92.2 Colon adenocarcinoma C18.9 Postoperative ileus K91.89; K56.7 Acute blood loss anemia D62 Community acquired bacterial pneumonia J15.9 Acute pain of right knee M25.561 Diabetes mellitus with kidney complication E11.29 Urothelial carcinoma of bladder C67.9 Dyslipidemia E78.5 Hypertension I10 Paroxysmal atrial fibrillation I48.0 Thrombocytopenia D69.6
[2020-10-04] MEDS: INSULIN ASPART 100 UNITS/ML 3 ML PEN SC SCH ×5 (00:45→18:43)
[2020-10-04] MEDS ORDERED: TPN/PPN CONSULT PHARMACY PRN (06:53)
[2020-10-04] MEDS ORDERED: SODIUM CHLOR 0.45% + 20MEQ KCL 20 MEQ/1,000 ML BAG IV SCH (07:00)
[2020-10-04] MEDS: D5NSS + 20MEQ KCL 20 MEQ/1,000 ML BAG IV SCH (07:10)
--- NOTE | 2020-10-04 07:59 | Surgery Progress Note ---
Date of Service October 04, 2020 Assessment & Plan (1) H/O colectomy: Plan: pod #7 Patient is approximately 1 week postop after total colectomy I held off ordering nutrition support at this time since I thought the patient was going to be turning around but he is more bloated than he had been yesterday I felt that at this time we will need to put an NG tube in him a PICC line was ordered and will start on hyperalimentation I also modified his IV fluids Labs this morning is pending POD#6 subtotal colectomy Patient starting to have + bowel function, passing some flatus and had a BM yesterday Diet was advanced to clears, will continue on clears for now and consider further advancement later today if doing well Encourage ongoing activity and pulmonary toilet Admission and Anticipated Discharge Date Admission Date: September 18, 2020 Subjective Overall feels no complaints occasional hiccup states had a bowel movement 2 days ago and passing some flatus not very hungry Physical Exam Physical Exam: Is alert coherent resting in bed as stated occasional hiccuping The abdomen is softly distended is nontender incision is solid ileal conduit pink with good output Results & Data ([facility]) Vital Signs (Past 12 Hours) Vital Signs Temp Pulse Resp BP BP Pulse Ox 10/04/20 07:26 36.9 C 89 16 146/81 H 95 10/03/20 21:41 36.6 C 100 H 16 168/87 H 95 PG Care Time/CCT Total # of Minutes Spent Total Time Spent with Patient: Total time spent is greater than 50% in coordination of care (as documented) at patient's floor/unit and/or counseling patient: Coding Level of Care Code None Diagnoses H/O colectomy Z90.49
[2020-10-04] MEDS: FAMOTIDINE 20 MG in SYRINGE 3 ML IV SCH (08:06)
[2020-10-04] MEDS: FLUTICASONE PROPIONATE NA SPR 16 GM BTL NAE SCH ×2 (08:09→20:02)
[2020-10-04] MEDS: HEPARIN SOD 5,000 UNIT/0.5 ML VIAL SQ SCH ×2 (08:10→20:01)
[2020-10-04] MEDS: guaiFENesin 600 MG TABCR PO SCH ×2 (08:10→20:02)
[2020-10-04] MEDS ORDERED: TPN/PPN CONSULT PHARMACY STA (08:23)
[2020-10-04] MEDS ORDERED: Nursing to Pharmacy Communication SCH (08:30)
[2020-10-04 09:48] LABS: BUN Creatinine Ratio 14.3 (10-20); Calcium 7.9 mg/dl (8.5-10.1); Est GFR (African American) 61.1 ml/min; Est GFR (Non-African American) 52.7 ml/min; Magnesium 1.8 mg/dl (1.8-2.4); Potassium 4.7 mmol/L (3.5-5.1)
[2020-10-04 09:50] LABS: Phosphorus 2.4 mg/dl (2.5-4.9)
[2020-10-04] MEDS: INSULIN GLARGINE SOLOSTAR 100 UNITS/ML 3 ML PEN SC SCH (10:41)
--- NOTE | 2020-10-04 11:06 | XRay Report ---
XR chest 1V portable CLINICAL HISTORY: picc line placement to left arm COMPARISON STUDY: October 02, 2020 FINDINGS: No definite pneumothorax seen however evaluation is again limited due to multiple calcified nodules predominantly within bilateral upper lungs. . Minimal blunting of the left costophrenic angle which could represent small atelectasis and/or trace left pleural effusion. There is also small opacity at the left retrocardiac region which could represent atelectasis or infi ltrate. Cardiomediastinal silhouette is within upper limits of normal and stable since prior. Aorta is calcif ied. No significant pulmonary vascular congestion.. Osseous structures: Degenerative changes of the spine and bilateral shoulders. Interval placement of left-sided PICC line with tip projecting to the anatomical region of superior v margoth cava. IMPRESSION: 1. Atelectasis/infiltrate at the left lower lung. Possible trace left pleural effusion. 2. Interval placement of the left-sided PICC line with tip projecting to the anatomical region of mayo perior vena cava. ACT 112: Negative or not required by law. The above report was generated using voice recognition software. It may contain grammatical, syntax o r spelling errors. Electronically signed by: Mary Reyes DO 10/04/2020 11:05 AM
--- NOTE | 2020-10-04 15:32 | Pharmacy Report ---
Pharmacy PN Initial Consult - Date of Service October 04, 2020 - Scope Pharmacy has been consulted to manage parenteral nutrition orders and order appropriate labs. As part of the Nutrition Support Team guidelines, pharmacy will work in conjunction with dietary when determining the patients caloric needs. - Subjective The patient is a 85 year old M admitted on 09/18/20 14:00 for GI BLEED. Patient is to receive parenteral nutrition for [INDICATION]. Pertinent PMH: - Objective Height: 6 ft 1 in Weight: 71.395 kg Vascular Access:: PICC LINE Intake & Output (Last 24Hrs): Intake & Output 10/02/20 10/03/20 10/04/20 10/05/20 06:59 06:59 06:59 06:59 Intake Total 1633.750 / 3844.033 4700.25 / 1641.25 3075 / 3075 996.25 / 996.25 Output Total 1435 / 1435 1800 / 1800 1375 / 1375 551 / 551 Balance 198.750 / 198.750 -158.75 / -158.75 1700 / 1700 445.25 / 445.25 Weight 71.395 kg 71.395 kg Laboratory Data (Last 24 Hrs):: 10/04/20 08:55 Sodium 141 Potassium 4.7 Chloride 116 H Carbon Dioxide 22 BUN 18 Creatinine 1.24 Glucose 153 H Calcium 7.9 L Phosphorus 2.4 L Magnesium 1.8 Triglycerides 178 H Nutrition Assessment:: Please refer to the Notes section of the EMR for the most recent clinical rehab specialist note. - Assessment Patient admitted since 09/18/20 for GI bleed and anemia. Underwent Colonoscopy and surgery for colonic mass. Today is POD #7. Low food intake and currently NPO. Surgery ordered TPN today. - Plan For day 1 of PN administration, the following will be ordered: Macronutrients Amino acids 75 grams/day Dextrose 150 grams/day Lipids 25 grams/day Micronutrients Combined electrolytes [ ] mL - contains 35 mEq Na, 20 meq K, 4.5 mEq Ca, 5 mEq Mg, 35 mEq Cl, 29.5 mEq acetate per 20 mL Sodium phosphate 9 MMol Sodium chloride [] mEq Sodium acetate [] mEq Potassium phosphate 15 mMol Potassium chloride [] mEq Potassium acetate [] mEq Magnesium sulfate 8.12 mEq Calcium gluconate [] mEq Multivitamins 10 mL Trace Elements 10 mL Additional additives: Thiamine 100 mg Insulin 10 units Total volume 1800 mL to be infused over 24 hrs will provide 1060 kcal/day Labs to be ordered per PN order protocol Pharmacy will follow and adjust parenteral nutrition orders on a daily basis. Thank you.
[2020-10-04] MEDS ORDERED: CENTRAL PN IV SCH (16:00)
[2020-10-04] MEDS ORDERED: DEXTROSE 10% 1,000 ML IV PRN (16:00)
[2020-10-04] MEDS ORDERED: TPN IV SCH (16:00)
--- NOTE | 2020-10-04 19:18 | Hospitalist Progress Note ---
Date of Service October 04, 2020 Assessment & Plan (1) Postoperative ileus: Plan: pos op ileus, surgery has returned to hyperalimentation n.p.o. status NG tube surgery is in charge of advancing diet and daily assessment of advancement of bowel function Hypophosphatemia should be repleted with hyperalimentation (2) Acute GI bleeding: Plan: Initial rectal bleeding from colon masses. S/p Open subtotal colectomy by Dr Alvarez 09/27, acute blood loss anemia s/p 2 units PRBC 09/18. Hgb stable, VS stable on pepcid daily (3) Colon adenocarcinoma: Plan: Invasive well-differentiated adenocarcinoma on colonoscopy biopsy pathology on surgical biopsy two separate primary adenocarcinomas will need onc referal to consider treatment once recovered (4) Acute blood loss anemia: Plan: stable (5) Community acquired bacterial pneumonia: Plan: Resolved. Previous x-ray of chest shows: left lower lobe consolidation which favored pneumonia. Continue ceftriaxone (azithromycin one dose given on 09/22 but subsequently discontinued), completed course Video swallow postponed bedside evaluation was good the patient also was not eating diet yet will consider rescheduling once taking p.o. reliably (6) Acute pain of right knee: Plan: this appears to be a chronic problem, will monitor (7) Diabetes mellitus with kidney complication: Plan: HbA1C 7.5 basal bolus insulin and glycemic consult (8) Urothelial carcinoma of bladder: Plan: urostomy on right abdomen - draining clear yellow urine (9) Dyslipidemia: Plan: will resume home meds once able to take oral (10) Hypertension: Plan: Holding anti-hypertensives and monitoring due to blood loss/surgery BP stable off home meds (11) Paroxysmal atrial fibrillation: Plan: NSR 80s with PVCs when he was on telemetry, irrefular hear rhythm suspected ongoing PVCs rather than a. fib Heparin currently subcu for VTE prophylaxis, switch to apixaban once able to take PO (12) Thrombocytopenia: Plan: history of above problem, resolved Plan: VTE prophylaxis - heparin 5000 units SQ BID, switch back to his usual apixaban once able to take PO Admission and Anticipated Discharge Date Admission Date: September 18, 2020 Subjective Patient is depressed he started back on hyperalimentation oral feedings have ceased due to surgical's concern for distention abdomen NG tube replaced Review of Systems Review of Systems: Mild distress and fatigue no headache, no visual changes no speech or swallowing issues no chest pain, pressure or palpitations no shortness of breath, cough or wheezes mild but Controlled abdominal pain and functioning urostomy which is chronic, NG tube replaced no dysuria, hematuria or frequency no focal joint pain or swelling no back pain, CVA tenderness or radicular pain no bruising, bleeding or rashes no focal signs of weakness or numbness or altered sensation no complaints of anxiety or depression.. Physical Exam Physical Exam: The patient appeared fatigued but better than stated age doing well Vital signs as documented. Head exam is normocephalic atraumatic Neck is without JVD, thyromegaly, or carotid bruits. Lungs are clear to auscultation, no focal loss of breath sounds Cardiac exam, Rhythm is regular.. No murmurs, rubs or gallops. Abdominal exam reveals hypoactive bowel sounds like distention moderate discomfort Healing midline incisional scar Urostomy is in place Extremities are nonedematous and both pedal pulses are present Neurologic exam is alert and oriented, no focal loss of strength or sensation Skin is without bruises or rashes exception of the surgical sites Psychologically is without concerns for anxiety or depression Results & Data Results & Data ([facility]) Vital Signs (Past 12 Hours) Vital Signs Temp Pulse Resp BP BP Pulse Ox 10/04/20 15:34 97.7 F 61 16 144/77 H 97 10/04/20 07:26 98.4 F 89 16 146/81 H 95 PG Care Time/CCT Total # of Minutes Spent Total Time Spent with Patient: Total time spent is greater than 50% in coordination of care (as documented) at patient's floor/unit and/or counseling patient: Coding Level of Care Code 65167 Subseq Hosp Care Lvl 2 Diagnoses Postoperative ileus K91.89; K56.7 Acute GI bleeding K92.2 Colon adenocarcinoma C18.9 Acute blood loss anemia D62 Community acquired bacterial pneumonia J15.9 Acute pain of right knee M25.561 Diabetes mellitus with kidney complication E11.29 Urothelial carcinoma of bladder C67.9 Dyslipidemia E78.5 Hypertension I10 Paroxysmal atrial fibrillation I48.0 Thrombocytopenia D69.6
[2020-10-05] MEDS: INSULIN ASPART 100 UNITS/ML 3 ML PEN SC SCH ×5 (00:12→20:51)
--- NOTE | 2020-10-05 07:46 | Surgery Progress Note ---
Date of Service October 05, 2020 Assessment & Plan (1) H/O colectomy: Plan: pod #8 subtotal colectomy now on TPN NG was held after some difficulty inserting and he had BM keep NPO for now Admission and Anticipated Discharge Date Admission Date: September 18, 2020 Subjective no nausea, some flatus, BM yesterday Physical Exam Gastrointestinal (Abdomen): Inspection/Auscultation: + abdomen distended (less) Percussion/Palpation: abdomen soft Results & Data ([facility]) Vital Signs (Past 12 Hours) Vital Signs Temp Pulse Resp BP Pulse Ox 10/04/20 23:11 36.9 C 90 18 164/84 H 96 PG Care Time/CCT Total # of Minutes Spent Total Time Spent with Patient: Total time spent is greater than 50% in coordination of care (as documented) at patient's floor/unit and/or counseling patient: Coding Level of Care Code None Diagnoses H/O colectomy Z90.49
[2020-10-05] MEDS: guaiFENesin 600 MG TABCR PO SCH ×2 (08:27→20:23)
[2020-10-05] MEDS: HEPARIN SOD 5,000 UNIT/0.5 ML VIAL SQ SCH ×2 (08:34→20:23)
[2020-10-05] MEDS: FLUTICASONE PROPIONATE NA SPR 16 GM BTL NAE SCH ×2 (08:34→20:23)
[2020-10-05] MEDS: FAMOTIDINE 20 MG in SYRINGE 3 ML IV SCH (08:34)
[2020-10-05] MEDS: INSULIN GLARGINE SOLOSTAR 100 UNITS/ML 3 ML PEN SC SCH (08:35)
[2020-10-05 09:52] LABS: BUN Creatinine Ratio 17.3 (10-20); Calcium 7.9 mg/dl (8.5-10.1); Creatinine Clr Calc Pharmacy 42.3 ml/min; Est GFR (African American) 58.2 ml/min; Est GFR (Non-African American) 50.2 ml/min
[2020-10-05 10:01] LABS: Phosphorus 3.5 mg/dl (2.5-4.9)
--- NOTE | 2020-10-05 11:33 | Surgery Progress Note ---
Date of Service October 05, 2020 Assessment & Plan (1) H/O colectomy: Plan: POD#9 At this point will restart some oral intake given full liquid this way the patient can choose more what is appropriate keep him on hyperalimentation until we are certain that the oral intake is sufficient The path report I discussed with the patient and I discussed with his yesterday The patient most likely will be here over the weekend [facility] surgeons are following over the weekend pod #8 subtotal colectomy now on TPN NG was held after some difficulty inserting and he had BM keep NPO for now Admission and Anticipated Discharge Date Admission Date: September 18, 2020 Subjective Overall feels well states had 3 bowel movements since last evening to them were loose denies any nausea or hiccups Physical Exam Physical Exam: Alert coherent resting comfortably in bed Well-hydrated oropharyngeal area moist Abdomen completely benign the incision is healed well wally are intact there is no drainage Results & Data ([facility]) Vital Signs (Past 12 Hours) Vital Signs Temp Pulse Resp BP Pulse Ox 10/05/20 07:45 36.9 C 105 H 20 146/78 H 95 PG Care Time/CCT Total # of Minutes Spent Total Time Spent with Patient: Total time spent is greater than 50% in coordin ation of care (as documented) at patient's floor/unit and/or counseling patient: Coding Level of Care Code None Diagnoses H/O colectomy Z90.49
[2020-10-05] MEDS ORDERED: Nursing to Pharmacy Communication SCH (12:00)
--- NOTE | 2020-10-05 12:20 | Pharmacy Report ---
Pharmacy Glycemic Short Note 2 - Date of Service October 05, 2020 - Glycemic Short BSG Results (Last 24 hours): 10/04/20 10/04/20 10/05/20 12:26 18:30 00:07 Glucose POC Glucose 148 H 110 H 110 H 10/05/20 10/05/20 10/05/20 05:59 08:58 11:58 Glucose 157 H POC Glucose 125 H 184 H OUTPATIENT ANTIDIABETIC REGIMEN: * Glipizide XL 10mg PO daily ASSESSMENT: 10/05/20: * Pt received around total 31 units of insulin yesterday; 20 units basal + 1 unit bolus + IV Regular insulin 10 units in TPN ongoing infusion. * BSGs yesterday were well controlled. Fasting BSG today was 125 mg/dl. Continued basal insulin at same dose. * Pt was NPO yesterday. Today at lunch, clear liquid diet is ordered. Novolog CR tightened. * Pre-lunch BSG is also trending up to 184 mg/dl. * Current TPN bag has 150 gm of Dextrose, new bag starting at 1600 today will have 200 gm of Dextrose. This and the diet ordered will most likely cause the sugars to trend up. * However, continued with same amount of insulin in the new TPN bag for now until we see the rise in BSGs. Patient was hypoglycemic on the from too much Novolog and wanted to avoid this from happening again. * Re-assess amount of insulin in TPN tomorrow and possibly further tightening of Novolog CR. 10/03/20: * Pt received total 31 units of insulin yesterday; 20 units basal + 11 units bolus. * Fasting BSG was high at 186 mg/dl. Basal insulin continued the same. * Post prandial BSGs also high. This is most likely due to the Dextrose in the IV fluids running at 100 cc/hr. This had caused hyperglycemia few days ago. * Resumed Novolog 4 units q4h (hold if BSG < 130 mg/dl) to cover the carbs in the fluids. Hold this Novolog if Dextrose is cut in the fluids. 10/01/20 * Patient's BSGs yesterday were [phone]. He received 46 units of insulin (20 units of Lantus and 20 units of Novolog). * Patient remained on dextrose @ 50 cc/hr until around midmorning today. * Fasting BSG was 219 mg/dL and lunch BSG was 241 mg/dL. * Gave Lantus 20 units. * Tighten Novolog CF. Patient is NPO. Expect that elevated BSGs was due to dextrose infusion which is now cut. Q4 Novolog until BSGs more controlled. 09/29/20: * Pt received 40 units of insulin yesterday (20 units of basal and 20 units of bolus) * Pt remains NPO. He is allowed sips of liquid only. Also continues on dextrose infusion @ 80 ml/hr. Will continue set dose of Novolog q4h to cover for dextrose in fluids. * Fasting BSG of 158 mg/dL is near goal and trending downward (although not a true fasting with dextrose infusing). Will decrease basal insulin 25% for today. May resume 20 units daily once diet resumed. 09/28/20 * Patient's BSGs yesterday were [phone] and overnight were 167-161. Fasting today was 163 mg/dL. * Patient received 43 units of insulin yesterday - 20 units of basal and 23 units of bolus * Give patient Lantus 20 units this morning since fasting is steady. * Dextrose @ 100 cc/hr started around lunchtime. Patient is very carbohydrate sensitive. This represents about 20 grams in 4 hours which for him would be 7 units of Novolog. To be proactive especially in postoperative state, start with scheduled Novolog 4 units q4 hours (hold if BSG < 140 mg/dL and/or if dextrose is d/c'ed). Have hold parameter in case dextrose does not affect BSGs as planned. * Continue CF. Background: * 85 year old male admitted with GI bleed, colonic mass, surgery planned likely for Thursday * Type 2 diabetic maintained on oral antidiabetic agents as an outpatient * Oral agents are not recommended for inpatient use d/t drug interactions, changing PO intake, and difficulty titrating for acute hyper/hypoglycemia. ADA recommends re-initiating outpatient oral agents 1-2 days prior to discharge if/when appropriate if they were held on admission. * Will hold oral agents for admission and utilize SQ basal bolus insulin regimen which is the recommended regimen for inpatient glycemic control. * Will initiate weight based insulin dosing for insulin yumiko patient and titrate based on BSG trends. * Patient has had 0 units of insulin since admission, blood sugars above goal, 175-252mg/dl in the past 24 hours PLAN FOR INPATIENT GLYCEMIC CONTROL: * Hold outpatient oral diabetes medications * Basal insulin: continued * Lantus 20 units SQ qAM * IV Insulin in TPN: 10 units over 24hrs * Bolus insulin: * NovoLog per scale ACHS or Q6hrs while NPO * Goal Range: Low 110 mg/dL - High 140 mg/dL * Correction Factor: 15 mg/dL/unit * Nutritional / Prandial insulin per carb ratio of 1 unit per 4 grams CHO consumed PLAN FOR DISCHARGE: * HbA1C is reasonable for patient's comorbidities. He has had significant blood loss recently so this may affect HbA1C. * Reasonable to check BSGs at various times to establish true blood sugar control and adjust as needed.
--- NOTE | 2020-10-05 12:26 | Pharmacy Report ---
PHA: Parenteral Nutrition Con - Date of Service October 05, 2020 - Scope Pharmacy was consulted on [DATE] to manage parenteral nutrition orders for this patient. - Subjective The patient is currently on day 2 of central parenteral nutrition for prolonged poor oral food intake post surgery. - Objective Height: 6 ft 1 in Weight: 71.395 kg Diet: Full Liquid (with lunch today.) Intake & Output (24hrs):: Intake & Output 10/03/20 10/04/20 10/05/20 10/06/20 06:59 06:59 06:59 06:59 Intake Total 1641.25 / 1641.25 3075 / 3075 1996.25 / 1996.25 Output Total 1800 / 1800 1375 / 1375 1751 / 1751 Balance -158.75 / -158.75 1700 / 1700 245.25 / 245.25 Weight 71.395 kg 71.395 kg Laboratory Data (Last 24 Hr):: 10/05/20 08:58 Sodium 140 Potassium 4.0 Chloride 114 H Carbon Dioxide 23 BUN 22 H Creatinine 1.29 Glucose 157 H Calcium 7.9 L Phosphorus 3.5 D Magnesium 2.0 Nutrition Assessment:: Please refer to the Notes section of the EMR for the 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 - Plan For day 2 of PN administration, the following will be ordered: Macronutrients Amino acids 110 grams/day Dextrose 200 grams/day Lipids 50 grams/day Micronutrients Combined electrolytes [] mL - contains 35 mEq Na, 20 meq K, 4.5 mEq Ca, 5 mEq Mg, 35 mEq Cl, 29.5 mEq acetate per 20 mL Sodium phosphate [] MMol Sodium chloride [] mEq Sodium acetate [] mEq Potassium phosphate 21 mMol Potassium chloride [] mEq Potassium acetate [] mEq Magnesium sulfate 8.12 mEq Calcium gluconate [] mEq Multivitamins 10 mL Trace Elements 1 mL Additional additives: Insulin 10 units Thiamine 100 mg Total volume 1925 mL to be infused over 24 hrs will provide 1620 kcal/day Labs, as indicated, will be ordered per protocol Pharmacy will continue to follow and adjust parenteral nutrition orders on a daily basis. Thank you for allowing us to participate in the care of this patient.
--- NOTE | 2020-10-05 13:15 | Hospitalist Progress Note ---
Date of Service October 05, 2020 Assessment & Plan (1) Postoperative ileus: Plan: pos op ileus, surgery has returned to hyperalimentation n.p.o. status NG tube surgery is in charge of advancing diet and daily assessment of advancement of bowel function -> Had some BMs. Per surgery, considering restarting oral feeds along with TPN until we assess how he's doing. (2) Acute GI bleeding: Plan: Initial rectal bleeding from colon masses. S/p Open subtotal colectomy by Dr Alvarez 09/27, acute blood loss anemia s/p 2 units PRBC 09/18. Hgb stable, VS stable on pepcid daily (3) Colon adenocarcinoma: Plan: Invasive well-differentiated adenocarcinoma on colonoscopy biopsy pathology on surgical biopsy two separate primary adenocarcinomas will need onc referal to consider treatment once recovered (4) Acute blood loss anemia: Plan: stable (5) Community acquired bacterial pneumonia: Plan: Resolved. Previous x-ray of chest shows: left lower lobe consolidation which favored pneumonia. - Finished course of ceftriaxone (azithromycin one dose given on 09/22 but subsequently discontinued) - Video swallow postponed bedside evaluation was good the patient also was not eating diet yet will consider rescheduling once taking p.o. reliably (6) Acute pain of right knee: Plan: this appears to be a chronic problem, will monitor (7) Diabetes mellitus with kidney complication: Plan: HbA1C 7.5 basal bolus insulin and glycemic consult (8) Urothelial carcinoma of bladder: Plan: urostomy on right abdomen - draining clear yellow urine (9) Dyslipidemia: Plan: will resume home meds once able to take oral (10) Hypertension: Plan: Holding anti-hypertensives and monitoring due to blood loss/surgery BP stable off home meds (11) Paroxysmal atrial fibrillation: Plan: NSR 80s with PVCs when he was on telemetry, irrefular hear rhythm suspected ongoing PVCs rather than a. fib Heparin currently subcu for VTE prophylaxis, switch to apixaban once able to take PO (12) Thrombocytopenia: Plan: history of above problem, resolved Plan: VTE prophylaxis - heparin 5000 units SQ BID, switch back to his usual apixaban once able to take PO Admission and Anticipated Discharge Date Admission Date: September 18, 2020 Subjective Doing well today. No major pain. Overall, no fevers/chills. Had some BMs yesterday. Reports no fevers/chills, chest pain, shortness of breath, abdominal pain, nausea, or vomiting. Physical Exam Constitutional: WD/WN, vitals as above Eyes: EOM intact bilaterally; no conjunctival abnormality ENMT: external ear and nose normal, oropharynx normal Neck: trachea midline, no thyromegaly normal visual inspection Respiratory: normal respiratory effort, lungs clear to auscultation no respiratory distress Cardiovascular: RRR, no murmur, no edema Gastrointestinal (Abdomen): Inspection/Auscultation: + abdominal surgical incision; abdomen not distended Percussion/Palpation: abdomen soft; abdomen nontender, no guarding and abdomen not rigid RLQ ostomy with minimal, liquid output Musculoskeletal: no cyanosis or clubbing, extremities motor strength 5/5 Skin: no rashes, warm and dry Neurologic: moves all extremities and awake Psychiatric: Orientation: alert, oriented to person and cooperative Results & Data Results & Data ([facility]) Vital Signs (Past 12 Hours) Vital Signs Temp Pulse Resp BP Pulse Ox 10/05/20 07:45 36.9 C 105 H 20 146/78 H 95 PG Care Time/CCT Total # of Minutes Spent Total Time Spent with Patient: Total time spent is greater than 50% in coordination of care (as documented) at patient's floor/unit and/or counseling patient: Coding Level of Care Code 58712 Subseq Hosp Care Lvl 2 Diagnoses Postoperative ileus K91.89; K56.7 Acute GI bleeding K92.2 Colon adenocarcinoma C18.9 Acute blood loss anemia D62 Community acquired bacterial pneumonia J15.9 Acute pain of right knee M25.561 Diabetes mellitus with kidney complication E11.29 Urothelial carcinoma of bladder C67.9 Dyslipidemia E78.5 Hypertension I10 Paroxysmal atrial fibrillation I48.0 Thrombocytopenia D69.6
[2020-10-05] MEDS ORDERED: CENTRAL PN IV SCH (16:00)
[2020-10-05] MEDS ORDERED: TPN IV SCH (16:00)
[2020-10-06 08:17] LABS: Hematocrit (blood only) 25.8 % (42-52); Hemoglobin 7.8 g/dL (14.0-18.0); Mean Corpuscular Hemoglobin 25.7 pg (25-34); Mean Corpuscular Hgb Conc 30.2 g/dL (32-36); Mean Corpuscular Volume 85.1 fL (80-100); Mean Platelet Volume 9.9 fL (7.4-10.4); Platelet Count 276 K/uL (130-400); RDW Coefficient of Variation 16.8 % (11.5-14.5); RDW Standard Deviation 52.7 fL (36.4-46.3); Red Blood Count 3.03 M/uL (4.7-6.1); White Blood Count 5.24 K/uL (4.8-10.8)
[2020-10-06] MEDS: guaiFENesin 600 MG TABCR PO SCH ×2 (08:23→20:45)
[2020-10-06] MEDS: HEPARIN SOD 5,000 UNIT/0.5 ML VIAL SQ SCH ×2 (08:24→20:45)
[2020-10-06] MEDS: FLUTICASONE PROPIONATE NA SPR 16 GM BTL NAE SCH ×2 (08:24→20:45)
[2020-10-06] MEDS: FAMOTIDINE 20 MG in SYRINGE 3 ML IV SCH (08:27)
[2020-10-06 08:45] LABS: BUN Creatinine Ratio 25.3 (10-20); Calcium 7.8 mg/dl (8.5-10.1); Creatinine Clr Calc Pharmacy 45.9 ml/min; Est GFR (African American) 63.5 ml/min; Est GFR (Non-African American) 54.8 ml/min; Magnesium 1.9 mg/dl (1.8-2.4)
[2020-10-06 08:46] LABS: Phosphorus 3.2 mg/dl (2.5-4.9)
[2020-10-06] MEDS ORDERED: SODIUM CHLORIDE 0.9% 250 ML IV PRN (09:28)
[2020-10-06] MEDS: INSULIN ASPART 100 UNITS/ML 3 ML PEN SC SCH ×4 (09:35→20:46)
[2020-10-06] MEDS: PANTOprazole 40 MG in SYRINGE 0 ML IV SCH ×2 (10:24→20:46)
[2020-10-06] MEDS ORDERED: LIDOCAINE 1% LOCAL 20 ML VIAL INFIL ONE (10:36)
--- NOTE | 2020-10-06 11:24 | Surgery Progress Note ---
Date of Service October 06, 2020 Assessment & Plan (1) H/O colectomy: Plan: bowel function returning ambulate con't TPN for now continue fulls possibly regular diet in AM if con't to progress pain controlled Present on Admission?: No (2) Postoperative ileus: Present on Admission?: No Admission and Anticipated Discharge Date Admission Date: September 18, 2020 Subjective patient feeling well pain controlled ambulating fairly well good BM this AM Review of Systems Constitutional: no fever, no chills and no anorexia Respiratory: no dyspnea Cardiovascular: no chest pain Gastrointestinal: no abdominal pain, no nausea and no vomiting Physical Exam Constitutional: no acute distress Respiratory: normal respiratory effort, lungs clear to auscultation no respiratory distress Cardiovascular: RRR, no murmur, no edema Gastrointestinal (Abdomen): Inspection/Auscultation: normal bowel sounds and + abdominal surgical incision; abdomen not distended Percussion/Palpation: abdomen soft; abdomen nontender ileal conduit pink and functioning Skin: no rashes, warm and dry Psychiatric: Orientation: alert and oriented x 3 Results & Data ([facility]) Vital Signs (Past 12 Hours) Vital Signs Temp Pulse Resp BP Pulse Ox 10/06/20 07:37 37.2 C 93 H 18 137/62 94
[2020-10-06] MEDS: INSULIN GLARGINE SOLOSTAR 100 UNITS/ML 3 ML PEN SC SCH (11:37)
--- NOTE | 2020-10-06 14:50 | Pharmacy Report ---
Pharmacy Glycemic Short Note 2 - Date of Service October 06, 2020 - Glycemic Short BSG Results (Last 24 hours): 10/05/20 10/05/20 10/06/20 17:02 20:24 08:06 Glucose 178 H POC Glucose 182 H 123 H 10/06/20 10/06/20 08:35 12:06 Glucose POC Glucose 199 H 133 H OUTPATIENT ANTIDIABETIC REGIMEN: * Glipizide XL 10mg PO daily ASSESSMENT: 10/06/20 * Patient's BSGs yesterday were [phone] mg/dL. He received 20 units of Lantus plus Novolog 37 units (57 units of SQ insulin) plus 10 units of insulin in TPN. * Fasting today is 199 mg/dL. This is most likely because BSGs were not checked overnight. * Continue Lantus 20 units. * Lunch BSG trended down significantly. Loosen CF. Continue tight CR. * Dextrose in TPN cut in half. Continue with 10 units in IV as this is more reasonable (represents carbohydrate ratio of 10 as before was 20). * Overnight checks to prevent higher AM BSG. 10/05/20: * Pt received around total 31 units of insulin yesterday; 20 units basal + 1 unit bolus + IV Regular insulin 10 units in TPN ongoing infusion. * BSGs yesterday were well controlled. Fasting BSG today was 125 mg/dl. Continued basal insulin at same dose. * Pt was NPO yesterday. Today at lunch, clear liquid diet is ordered. Novolog CR tightened. * Pre-lunch BSG is also trending up to 184 mg/dl. * Current TPN bag has 150 gm of Dextrose, new bag starting at 1600 today will have 200 gm of Dextrose. This and the diet ordered will most likely cause the sugars to trend up. * However, continued with same amount of insulin in the new TPN bag for now until we see the rise in BSGs. Patient was hypoglycemic on the from too much Novolog and wanted to avoid this from happening again. * Re-assess amount of insulin in TPN tomorrow and possibly further tightening of Novolog CR. 10/03/20: * Pt received total 31 units of insulin yesterday; 20 units basal + 11 units bolus. * Fasting BSG was high at 186 mg/dl. Basal insulin continued the same. * Post prandial BSGs also high. This is most likely due to the Dextrose in the IV fluids running at 100 cc/hr. This had caused hyperglycemia few days ago. * Resumed Novolog 4 units q4h (hold if BSG < 130 mg/dl) to cover the carbs in the fluids. Hold this Novolog if Dextrose is cut in the fluids. Background: * 85 year old male admitted with GI bleed, colonic mass, surgery planned likely for Thursday * Type 2 diabetic maintained on oral antidiabetic agents as an outpatient * Oral agents are not recommended for inpatient use d/t drug interactions, changing PO intake, and difficulty titrating for acute hyper/hypoglycemia. ADA recommends re-initiating outpatient oral agents 1-2 days prior to discharge if/when appropriate if they were held on admission. * Will hold oral agents for admission and utilize SQ basal bolus insulin regimen which is the recommended regimen for inpatient glycemic control. * Will initiate weight based insulin dosing for insulin yumiko patient and titrate based on BSG trends. * Patient has had 0 units of insulin since admission, blood sugars above goal, 175-252mg/dl in the past 24 hours PLAN FOR INPATIENT GLYCEMIC CONTROL: * Hold outpatient oral diabetes medications * Basal insulin: continued * Lantus 20 units SQ qAM * IV Insulin in TPN: 10 units over 24hrs * Bolus insulin: * NovoLog per scale ACHS or Q6hrs while NPO * Goal Range: Low 110 mg/dL - High 140 mg/dL * Correction Factor: 20 mg/dL/unit * Nutritional / Prandial insulin per carb ratio of 1 unit per 4 grams CHO consumed PLAN FOR DISCHARGE: * HbA1C is reasonable for patient's comorbidities. He has had significant blood loss recently so this may affect HbA1C. * Reasonable to check BSGs at various times to establish true blood sugar control and adjust as needed.
[2020-10-06] MEDS ORDERED: CENTRAL PN IV SCH (16:00)
[2020-10-06] MEDS ORDERED: TPN IV SCH (16:00)
--- NOTE | 2020-10-06 18:33 | Hospitalist Progress Note ---
Date of Service October 06, 2020 Assessment & Plan (1) Postoperative ileus: Plan: pos op ileus, surgery has returned to hyperalimentation n.p.o. status NG tube surgery is in charge of advancing diet and daily assessment of advancement of bowel function -> Had some BMs. Per surgery, considering restarting oral feeds along with TPN until we assess how he's doing. (2) Acute GI bleeding: Plan: Initial rectal bleeding from colon masses. S/p Open subtotal colectomy by Dr Alvarez 09/27, acute blood loss anemia s/p 2 units PRBC 09/18. Hgb stable, needed recheck to prove this VS stable on pepcid daily (3) Colon adenocarcinoma: Plan: Invasive well-differentiated adenocarcinoma on colonoscopy biopsy pathology on surgical biopsy two separate primary adenocarcinomas will need onc referal to consider treatment once recovered (4) Acute blood loss anemia: Plan: stable (5) Community acquired bacterial pneumonia: Plan: Resolved. Previous x-ray of chest shows: left lower lobe consolidation which favored pneumonia. - Finished course of ceftriaxone (azithromycin one dose given on 09/22 but subsequently discontinued) - Video swallow postponed bedside evaluation was good the patient also was not eating diet yet will consider rescheduling once taking p.o. reliably (6) Acute pain of right knee: Plan: this appears to be a chronic problem, will monitor (7) Diabetes mellitus with kidney complication: Plan: HbA1C 7.5 basal bolus insulin and glycemic consult (8) Urothelial carcinoma of bladder: Plan: urostomy on right abdomen - draining clear yellow urine (9) Dyslipidemia: Plan: will resume home meds once able to take oral (10) Hypertension: Plan: Holding anti-hypertensives and monitoring due to blood loss/surgery BP stable off home meds (11) Paroxysmal atrial fibrillation: Plan: NSR 80s with PVCs when he was on telemetry, irrefular hear rhythm suspected ongoing PVCs rather than a. fib Heparin currently subcu for VTE prophylaxis, switch to apixaban once able to take PO (12) Thrombocytopenia: Plan: history of above problem, resolved Plan: VTE prophylaxis - heparin 5000 units SQ BID, switch back to his usual apixaban once able to take PO Admission and Anticipated Discharge Date Admission Date: September 18, 2020 Subjective pt now encouraged to begin po again, spoke of anemia and recheck does not now require additional transfusion Review of Systems Review of Systems: Mild distress and fatigue no headache, no visual changes no speech or swallowing issues no chest pain, pressure or palpitations no shortness of breath, cough or wheezes mild but Controlled abdominal pain and functioning urostomy which is chronic, NG tube replaced no dysuria, hematuria or frequency no focal joint pain or swelling no back pain, CVA tenderness or radicular pain no bruising, bleeding or rashes no focal signs of weakness or numbness or altered sensation no complaints of anxiety or depression.. Physical Exam Physical Exam: The patient appeared fatigued but better than stated age doing well Vital signs as documented. Head exam is normocephalic atraumatic Neck is without JVD, thyromegaly, or carotid bruits. Lungs are clear to auscultation, no focal loss of breath sounds Cardiac exam, Rhythm is regular.. No murmurs, rubs or gallops. Abdominal exam reveals hypoactive bowel sounds like distention moderate discomfo rt Healing midline incisional scar Urostomy is in place Extremities are nonedematous and both pedal pulses are present Neurologic exam is alert and oriented, no focal loss of strength or sensation Skin is without bruises or rashes exception of the surgical sites Psychologically is without concerns for anxiety or depression Results & Data Results & Data ([facility]) Vital Signs (Past 12 Hours) Vital Signs Temp Pulse Resp BP BP Pulse Ox 10/06/20 15:11 97.7 F 58 L 16 117/46 L 94 10/06/20 07:37 99.0 F 93 H 18 137/62 94 PG Care Time/CCT Total # of Minutes Spent Total Time Spent with Patient: Total time spent is greater than 50% in coordination of care (as documented) at patient's floor/unit and/or counseling patient: Coding Level of Care Code 23825 Subseq Hosp Care Lvl 2 Diagnoses Postoperative ileus K91.89; K56.7 Acute GI bleeding K92.2 Colon adenocarcinoma C18.9 Acute blood loss anemia D62 Community acquired bacterial pneumonia J15.9 Acute pain of right knee M25.561 Diabetes mellitus with kidney complication E11.29 Urothelial carcinoma of bladder C67.9 Dyslipidemia E78.5 Hypertension I10 Paroxysmal atrial fibrillation I48.0 Thrombocytopenia D69.6
[2020-10-07] MEDS: INSULIN ASPART 100 UNITS/ML 3 ML PEN SC SCH ×6 (00:15→22:25)
[2020-10-07] MEDS: FLUTICASONE PROPIONATE NA SPR 16 GM BTL NAE SCH ×2 (07:56→20:18)
[2020-10-07] MEDS: PANTOprazole 40 MG in SYRINGE 0 ML IV SCH ×2 (07:56→20:19)
[2020-10-07] MEDS: guaiFENesin 600 MG TABCR PO SCH ×2 (07:58→20:19)
[2020-10-07] MEDS: HEPARIN SOD 5,000 UNIT/0.5 ML VIAL SQ SCH ×2 (07:59→20:19)
[2020-10-07] MEDS: FAMOTIDINE 20 MG in SYRINGE 3 ML IV SCH (08:03)
[2020-10-07] MEDS: INSULIN GLARGINE SOLOSTAR 100 UNITS/ML 3 ML PEN SC SCH (09:54)
--- NOTE | 2020-10-07 12:50 | Surgery Progress Note ---
Date of Service October 07, 2020 Assessment & Plan (1) H/O colectomy: Plan: advance diet good progress Present on Admission?: Yes Admission and Anticipated Discharge Date Admission Date: September 18, 2020 Subjective taking fulls well small BMs ambulating Review of Systems Constitutional: no fever and no chills Respiratory: no dyspnea Cardiovascular: no chest pain Gastrointestinal: no abdominal pain, no nausea and no vomiting Genitourinary: + dysuria Physical Exam Constitutional: well developed and well nourished Eyes: PERRL ENMT: external ear and nose normal, oropharynx normal Neck: trachea midline Respiratory: normal respiratory effort, lungs clear to auscultation Cardiovascular: RRR, no murmur, no edema Gastrointestinal (Abdomen): Inspection/Auscultation: abdomen normal to inspection and + abdominal surgical incision; abdomen not distended Percussion/Palpation: abdomen soft; abdomen nontender Results & Data ([facility]) Vital Signs (Past 12 Hours) Vital Signs Temp Pulse Resp BP Pulse Ox 10/07/20 07:35 37.5 C 65 18 135/74 96
--- NOTE | 2020-10-07 17:43 | Hospitalist Progress Note ---
Date of Service October 07, 2020 Assessment & Plan (1) Postoperative ileus: Plan: pos op ileus, surgery has returned to hyperalimentation n.p.o. status NG tube surgery is in charge of advancing diet and daily assessment of advancement of bowel function -> Had some BMs. Per surgery, advancing oral feeds along was on TPN all weekend (2) Acute GI bleeding: Plan: Initial rectal bleeding from colon masses. S/p Open subtotal colectomy by Dr Alvarez 09/27, acute blood loss anemia s/p 2 units PRBC 09/18. Hgb stable, needed recheck to prove this VS stable on pepcid daily (3) Colon adenocarcinoma: Plan: Invasive well-differentiated adenocarcinoma on colonoscopy biopsy pathology on surgical biopsy two separate primary adenocarcinomas will need onc referal to consider treatment once recovered (4) Acute blood loss anemia: Plan: stable (5) Community acquired bacterial pneumonia: Plan: Resolved. Previous x-ray of chest shows: left lower lobe consolidation which favored pneumonia. - Finished course of ceftriaxone (azithromycin one dose given on 09/22 but subsequently discontinued) - Video swallow postponed bedside evaluation was good the patient also was not eating diet yet will consider rescheduling once taking p.o. reliably (6) Acute pain of right knee: Plan: this appears to be a chronic problem, will monitor (7) Diabetes mellitus with kidney complication: Plan: HbA1C 7.5 basal bolus insulin and glycemic consult (8) Urothelial carcinoma of bladder: Plan: urostomy on right abdomen - draining clear yellow urine (9) Dyslipidemia: Plan: will resume home meds once able to take oral (10) Hypertension: Plan: Holding anti-hypertensives and monitoring due to blood loss/surgery BP stable off home meds (11) Paroxysmal atrial fibrillation: Plan: NSR 80s with PVCs when he was on telemetry, irrefular hear rhythm suspected ongoing PVCs rather than a. fib Heparin currently subcu for VTE prophylaxis, switch to apixaban once able to take PO (12) Thrombocytopenia: Plan: history of above problem, resolved Plan: VTE prophylaxis - heparin 5000 units SQ BID, switch back to his usual apixaban once able to take PO Admission and Anticipated Discharge Date Admission Date: September 18, 2020 Subjective pt is tolerating full liquids, little abdominal pain, is still on TPN but expecting this to stop Review of Systems Review of Systems: Mild distress and fatigue no headache, no visual changes no speech or swallowing issues no chest pain, pressure or palpitations no shortness of breath, cough or wheezes mild but Controlled abdominal pain and functioning urostomy which is chronic, ng removed toleration po diet no dysuria, hematuria or frequency no focal joint pain or swelling no back pain, CVA tenderness or radicular pain no bruising, bleeding or rashes no focal signs of weakness or numbness or altered sensation no complaints of anxiety or depression.. Eyes: no diplopia Ear, Nose, Mouth, Throat: no ear pain Respiratory: + cough Cardiovascular: no chest pain Gastrointestinal: no abdominal pain Genitourinary: no dysuria Musculoskeletal: no radicular pain Integumentary: no rash Neurologic: no falls Psychiatric: no anhedonia Endocrine: no polydipsia Hematologic / Lymphatic: no easy bleeding Physical Exam Physical Exam: The patient appeared fatigued but better than stated age doing well Vital signs as documented. Head exam is normocephalic atraumatic Neck is without JVD, thyromegaly, or carotid bruits. Lungs are clear to auscultation, no focal loss of breath sounds Cardiac exam, Rhythm is regular.. No murmurs, rubs or gallops. Abdominal exam reveals hypoactive bowel sounds like distention moderate discomfort Healing midline incisional scar Urostomy is in place Extremities are nonedematous and both pedal pulses are present Neurologic exam is alert and oriented, no focal loss of strength or sensation Skin is without bruises or rashes exception of the surgical sites Psychologically is without concerns for anxiety or depression Results & Data Results & Data ([facility]) Vital Signs (Past 12 Hours) Vital Signs Temp Pulse Resp BP BP Pulse Ox 10/07/20 16:00 97.7 F 48 L 16 114/48 L 97 10/07/20 07:35 99.5 F 65 18 135/74 96 PG Care Time/CCT Total # of Minutes Spent Total Time Spent with Patient: Total time spent is greater than 50% in coordination of care (as documented) at patient's floor/unit and/or counseling patient: Coding Level of Care Code 31454 Subseq Hosp Care Lvl 2 Diagnoses Postoperative ileus K91.89; K56.7 Acute GI bleeding K92.2 Colon adenocarcinoma C18.9 Acute blood loss anemia D62 Community acquired bacterial pneumonia J15.9 Acute pain of right knee M25.561 Diabetes mellitus with kidney complication E11.29 Urothelial carcinoma of bladder C67.9 Dyslipidemia E78.5 Hypertension I10 Paroxysmal atrial fibrillation I48.0 Thrombocytopenia D69.6
--- NOTE | 2020-10-08 07:21 | Surgery Progress Note ---
Date of Service October 08, 2020 Assessment & Plan (1) Colon adenocarcinoma: Plan: Patient is 11 days postop subtotal colectomy for a pT3NO lesions (one in the ascending colon and one in the transverse colon) We will leave discharge date to primary service I suspect will be here another day or 2 benefiting from some more physical therapy We will remove the wally prior to the patient being discharged will follow up in the office a week or 2 after discharge We will follow up with oncology referral Admission and Anticipated Discharge Date Admission Date: September 18, 2020 Jazmine Lim had a good day yesterday he was able to tolerate solid diet no abdominal discomfort had a bowel movement Physical Exam Physical Exam: He is alert coherent resting comfortably in bed with no issues Gastrointestinal (Abdomen): The abdomen is completely benign the incision is healed well the wally still intact there is no drainage no cellulitis no reactions of the wally Results & Data ([facility]) Vital Signs (Past 12 Hours) Vital Signs Temp Pulse Resp BP Pulse Ox 10/07/20 23:56 37 C 73 20 121/57 L 96 PG Care Time/CCT Total # of Minutes Spent Total Time Spent with Patient: Total time spent is greater than 50% in coordination of care (as documented) at patient's floor/unit and/or counseling patient: Coding Level of Care Code None Diagnoses Colon adenocarcinoma C18.9
[2020-10-08] MEDS: FLUTICASONE PROPIONATE NA SPR 16 GM BTL NAE SCH ×2 (08:56→21:22)
[2020-10-08] MEDS: guaiFENesin 600 MG TABCR PO SCH (08:56)
[2020-10-08] MEDS: FAMOTIDINE 20 MG TAB PO SCH (08:56)
[2020-10-08] MEDS: INSULIN GLARGINE SOLOSTAR 100 UNITS/ML 3 ML PEN SC SCH (08:57)
[2020-10-08] MEDS: INSULIN ASPART 100 UNITS/ML 3 ML PEN SC SCH ×4 (08:58→21:30)
[2020-10-08] MEDS: APIXABAN 2.5 MG TAB PO SCH ×2 (09:02→21:22)
[2020-10-08] MEDS: PANTOprazole 40 MG TAB PO SCH (09:02)
[2020-10-08 10:18] LABS: Albumin Level 2.4 gm/dl (3.4-5.0); BUN Creatinine Ratio 22.7 (10-20); Calcium 8.1 mg/dl (8.5-10.1); Creatinine Clr Calc Pharmacy 31.8 ml/min; Est GFR (African American) 40.8 ml/min; Est GFR (Non-African American) 35.2 ml/min; Potassium 3.8 mmol/L (3.5-5.1)
[2020-10-08 10:21] LABS: Albumin Globulin Ratio 0.7 (0.9-2); Bilirubin,Total 0.4 mg/dl (0.2-1); Globulin 3.3 gm/dl (2.5-4.0); Phosphorus 2.9 mg/dl (2.5-4.9); Total Protein 5.7 gm/dl (6.4-8.2)
[2020-10-08] MEDS ORDERED: DEXTROSE 5% 1,000 ML IV SCH (11:00)
--- NOTE | 2020-10-08 15:17 | Pharmacy Report ---
Pharmacy Glycemic Short Note 2 - Date of Service October 08, 2020 - Glycemic Short BSG Results (Last 24 hours): 10/07/20 10/07/20 10/08/20 17:09 22:20 08:11 Glucose POC Glucose 70 75 162 H 10/08/20 10/08/20 09:29 12:14 Glucose 170 H POC Glucose 135 H OUTPATIENT ANTIDIABETIC REGIMEN: * Glipizide XL 10mg PO daily ASSESSMENT: 10/07/20 * BSGs yesterday were [phone] mg/dL. Fasting today was 160 mg/dL. * Continue Lantus 20 units daily. * Loosen CF and CR as patient trends down throughout the day. * Patient is now on dextrose infusion BUT his kidney function significantly spiked. * Will Continue current regimen and NOT add back the scheduled Novolog with dextrose infusion. Overnight checks to ensure 24 hour coverage. 10/06/20 * Patient's BSGs yesterday were [phone] mg/dL. He received 20 units of Lantus plus Novolog 37 units (57 units of SQ insulin) plus 10 units of insulin in TPN. * Fasting today is 199 mg/dL. This is most likely because BSGs were not checked overnight. * Continue Lantus 20 units. * Lunch BSG trended down significantly. Loosen CF. Continue tight CR. * Dextrose in TPN cut in half. Continue with 10 units in IV as this is more reasonable (represents carbohydrate ratio of 10 as before was 20). * Overnight checks to prevent higher AM BSG. 10/05/20: * Pt received around total 31 units of insulin yesterday; 20 units basal + 1 unit bolus + IV Regular insulin 10 units in TPN ongoing infusion. * BSGs yesterday were well controlled. Fasting BSG today was 125 mg/dl. Continued basal insulin at same dose. * Pt was NPO yesterday. Today at lunch, clear liquid diet is ordered. Novolog CR tightened. * Pre-lunch BSG is also trending up to 184 mg/dl. * Current TPN bag has 150 gm of Dextrose, new bag starting at 1600 today will have 200 gm of Dextrose. This and the diet ordered will most likely cause the sugars to trend up. * However, continued with same amount of insulin in the new TPN bag for now until we see the rise in BSGs. Patient was hypoglycemic on the from too much Novolog and wanted to avoid this from happening again. * Re-assess amount of insulin in TPN tomorrow and possibly further tightening of Novolog CR. 10/03/20: * Pt received total 31 units of insulin yesterday; 20 units basal + 11 units bolus. * Fasting BSG was high at 186 mg/dl. Basal insulin continued the same. * Post prandial BSGs also high. This is most likely due to the Dextrose in the IV fluids running at 100 cc/hr. This had caused hyperglycemia few days ago. * Resumed Novolog 4 units q4h (hold if BSG < 130 mg/dl) to cover the carbs in the fluids. Hold this Novolog if Dextrose is cut in the fluids. Background: * 85 year old male admitted with GI bleed, colonic mass, surgery planned likely for Thursday * Type 2 diabetic maintained on oral antidiabetic agents as an outpatient * Oral agents are not recommended for inpatient use d/t drug interactions, changing PO intake, and difficulty titrating for acute hyper/hypoglycemia. ADA recommends re-initiating outpatient oral agents 1-2 days prior to discharge if/when appropriate if they were held on admission. * Will hold oral agents for admission and utilize SQ basal bolus insulin regimen which is the recommended regimen for inpatient glycemic control. * Will initiate weight based insulin dosing for insulin yumiko patient and titrate based on BSG trends. * Patient has had 0 units of insulin since admission, blood sugars above goal, 175-252mg/dl in the past 24 hours PLAN FOR INPATIENT GLYCEMIC CONTROL: * Hold outpatient oral diabetes medications * Basal insulin: continued * Lantus 20 units SQ qAM * Bolus insulin: * NovoLog per scale ACHS or Q6hrs while NPO * Goal Range: Low 110 mg/dL - High 140 mg/dL * Correction Factor: 30 mg/dL/unit * Nutritional / Prandial insulin per carb ratio of 1 unit per 5 grams CHO consumed PLAN FOR DISCHARGE: * HbA1C is reasonable for patient's comorbidities. He has had significant blood loss recently so this may affect HbA1C. * Reasonable to check BSGs at various times to establish true blood sugar control and adjust as needed.
--- NOTE | 2020-10-08 15:30 | Hospitalist Progress Note ---
Date of Service October 08, 2020 Assessment & Plan (1) Postoperative ileus: Plan: pos op ileus, surgery has returned to hyperalimentation n.p.o. status NG tube surgery is in charge of advancing diet and daily assessment of advancement of bowel function -> Had some BMs. Per surgery, advancing oral feeds, will restart on his usual oral medications now tolerating normal diet (2) Acute GI bleeding: Plan: Initial rectal bleeding from colon masses. S/p Open subtotal colectomy by Dr Alvarez 09/27, acute blood loss anemia s/p 2 units PRBC 09/18. Hgb stable. VS stable on pepcid daily Repeat Hgb tomorrow (3) Colon adenocarcinoma: Plan: Invasive well-differentiated adenocarcinoma on colonoscopy biopsy pathology on surgical biopsy two separate primary adenocarcinomas will need onc referal to consider treatment once recovered (4) Acute blood loss anemia: Plan: stable (5) Community acquired bacterial pneumonia: Plan: Resolved. Previous x-ray of chest shows: left lower lobe consolidation which favored pneumonia. - Finished course of ceftriaxone (azithromycin one dose given on 09/22 but subsequently discontinued) - Video swallow postponed bedside evaluation was good the patient (6) Acute pain of right knee: Plan: this appears to be a chronic problem, will monitor (7) Diabetes mellitus with kidney complication: Plan: HbA1C 7.5 basal bolus insulin and glycemic consult (8) Urothelial carcinoma of bladder: Plan: urostomy on right abdomen - draining clear yellow urine (9) Dyslipidemia: Plan: Restart atorvastatin if tolerating other oral medications (10) Hypertension: Plan: Holding anti-hypertensives and monitoring due to blood loss/surgery BP stable off home meds (11) Paroxysmal atrial fibrillation: Plan: NSR 80s with PVCs when he was on telemetry, irrefular hear rhythm suspected ongoing PVCs rather than a. fib (12) Thrombocytopenia: Plan: history of above problem, resolved Plan: VTE prophylaxis - switch back to apixaban today Admission and Anticipated Discharge Date Admission Date: September 18, 2020 Subjective Doing well today. Looking much more alert than when I previous last saw him last week. Tolerating full diet. Deepali still in. Urine output good although Cr/BUN increased today. Daughter updated at bedside. Review of Systems Review of Systems: All systems reviewed & are unremarkable except as noted in HPI & below Physical Exam Constitutional: WD/WN, vitals as above ENMT: Mouth: oral mucous membranes not dry Respiratory: normal respiratory effort, lungs clear to auscultation Cardiovascular: RRR, no murmur, no edema Rate/Rhythm: regular rate and + irregularly irregular Gastrointestinal (Abdomen): Inspection/Auscultation: + abdomen distended Percussion/Palpation: abdomen soft; abdomen nontender surgical scar without surrounding cellulitis Musculoskeletal: no cyanosis or clubbing, extremities motor strength 5/5 Skin: no rashes, warm and dry Neurologic: moves all extremities and awake; not confused Psychiatric: A+Ox3, euthymic affect Results & Data Results & Data ([facility]) Vital Signs (Past 12 Hours) Vital Signs Temp Pulse Resp BP Pulse Ox 10/08/20 07:39 37.1 C 56 L 18 132/75 94 PG Care Time/CCT Total # of Minutes Spent Total Time Spent with Patient: Total time spent is greater than 50% in coordination of care (as documented) at patient's floor/unit and/or counseling patient: Coding Level of Care Code 08814 Subseq Hosp Care Lvl 2 Diagnoses Postoperative ileus K91.89; K56.7 Acute GI bleeding K92.2 Colon adenocarcinoma C18.9 Acute blood loss anemia D62 Community acquired bacterial pneumonia J15.9 Acute pain of right knee M25.561 Diabetes mellitus with kidney complication E11.29 Urothelial carcinoma of bladder C67.9 Dyslipidemia E78.5 Hypertension I10 Paroxysmal atrial fibrillation I48.0 Thrombocytopenia D69.6
[2020-10-08] MEDS: CARBOHYDRATES FOR HYPOGLYCEMIA PO PRN (20:32)
[2020-10-09] MEDS: INSULIN ASPART 100 UNITS/ML 3 ML PEN SC SCH ×6 (00:06→21:10)
[2020-10-09 06:30] LABS: Hematocrit (blood only) 23.6 % (42-52); Hemoglobin 7.2 g/dL (14.0-18.0); Mean Corpuscular Hemoglobin 25.8 pg (25-34); Mean Corpuscular Hgb Conc 30.5 g/dL (32-36); Mean Corpuscular Volume 84.6 fL (80-100); Mean Platelet Volume 9.2 fL (7.4-10.4); Platelet Count 267 K/uL (130-400); RDW Coefficient of Variation 17.1 % (11.5-14.5); RDW Standard Deviation 52.8 fL (36.4-46.3); Red Blood Count 2.79 M/uL (4.7-6.1); White Blood Count 5.19 K/uL (4.8-10.8)
[2020-10-09 06:59] LABS: Albumin Level 2.2 gm/dl (3.4-5.0); BUN Creatinine Ratio 21.8 (10-20); Calcium 8.1 mg/dl (8.5-10.1); Creatinine Clr Calc Pharmacy 31.3 ml/min; Est GFR (Non-African American) 34.5 ml/min
[2020-10-09 07:00] LABS: Albumin Globulin Ratio 0.7 (0.9-2); Bilirubin,Total 0.3 mg/dl (0.2-1); Globulin 3.2 gm/dl (2.5-4.0); Total Protein 5.4 gm/dl (6.4-8.2)
[2020-10-09] MEDS: FLUTICASONE PROPIONATE NA SPR 16 GM BTL NAE SCH ×2 (08:04→21:04)
[2020-10-09] MEDS: FAMOTIDINE 20 MG TAB PO SCH (08:05)
[2020-10-09] MEDS: PANTOprazole 40 MG TAB PO SCH (08:06)
[2020-10-09] MEDS ORDERED: DEXTROSE 5% 1,000 ML IV SCH (08:45)
--- NOTE | 2020-10-09 08:56 | Surgery Progress Note ---
Date of Service October 09, 2020 Assessment & Plan (1) Colon adenocarcinoma: Plan: POD#12 subtotal colectomy Pt doing well from abdominal standpoint. Denies abdominal pain, nausea/vomiting His abdomen is soft, non tender. He is passing BMs and flatus. He is tolerating a diet Today patient's Hbg is down to 7.2 (8.7) and Cr remains elevated at 1.7. Eliquis was resumed yesterday. Vitals are stable Dispo date pending per medicine but may need another day to sort out lab work We will plan to remove wally at time of dispo F/U with Dr. Alvarez in 1-2 weeks Admission and Anticipated Discharge Date Admission Date: September 18, 2020 Subjective Patient says he is feeling well. Denies abdominal pain/n/v. Tolerating a diet. + flatus/BM. Physical Exam Physical Exam: awake/alert Gastrointestinal (Abdomen): Inspection/Auscultation: + abdominal surgical incision (c/d/i with wally in place); abdomen not distended Percussion/Palpation: abdomen soft; abdomen nontender Results & Data ([facility]) Vital Signs (Past 12 Hours) Vital Signs Temp Pulse Resp BP BP Pulse Ox 10/09/20 07:46 36.7 C 80 16 144/68 H 95 10/08/20 22:42 36.7 C 84 17 137/63 95 PG Care Time/CCT Total # of Minutes Spent Total Time Spent with Patient: Total time spent is greater than 50% in coordination of care (as documented) at patient's floor/unit and/or counseling patient: Coding Level of Care Code None Diagnoses Colon adenocarcinoma C18.9
[2020-10-09] MEDS: APIXABAN 2.5 MG TAB PO SCH ×2 (09:42→21:03)
[2020-10-09] MEDS: INSULIN GLARGINE SOLOSTAR 100 UNITS/ML 3 ML PEN SC SCH (09:54)
[2020-10-09 16:00] LABS: Hematocrit (blood only) 26.5 % (42-52); Hemoglobin 8.1 g/dL (14.0-18.0)
[2020-10-09] MEDS: CARBOHYDRATES FOR HYPOGLYCEMIA PO PRN ×2 (17:28→17:51)
--- NOTE | 2020-10-09 19:41 | Hospitalist Progress Note ---
Date of Service October 09, 2020 Assessment & Plan (1) Postoperative ileus: Plan: pos op ileus, surgery has returned to hyperalimentation n.p.o. status NG tube surgery is in charge of advancing diet and daily assessment of advancement of bowel function -> Had some BMs. Per surgery, advancing oral feeds, will restart on his usual oral medications now tolerating normal diet (2) Acute GI bleeding: Plan: Initial rectal bleeding from colon masses. S/p Open subtotal colectomy by Dr Alvarez 09/27, acute blood loss anemia s/p 2 units PRBC 09/18. Hgb mild reduced today but asymptomatic. VS stable on pepcid daily Repeat Hgb this afternoon (3) Acute blood loss anemia: Plan: as above (4) Colon adenocarcinoma: Plan: Invasive well-differentiated adenocarcinoma on colonoscopy biopsy pathology on surgical biopsy two separate primary adenocarcinomas will need onc referal to consider treatment once recovered (5) Community acquired bacterial pneumonia: Plan: Resolved. Previous x-ray of chest shows: left lower lobe consolidation which favored pneumonia. - Finished course of ceftriaxone (azithromycin one dose given on 09/22 but subsequently discontinued) - Video swallow postponed bedside evaluation was good the patient (6) Acute pain of right knee: Plan: this appears to be a chronic problem, will monitor (7) Diabetes mellitus with kidney complication: Plan: HbA1C 7.5 basal bolus insulin and glycemic consult (8) Urothelial carcinoma of bladder: Plan: urostomy on right abdomen - draining clear yellow urine (9) Dyslipidemia: Plan: Continue atorvastatin (10) Hypertension: Plan: Holding anti-hypertensives and monitoring due to blood loss/surgery BP stable off home meds (11) Paroxysmal atrial fibrillation: Plan: NSR 80s with PVCs when he was on telemetry, irregular hear rhythm suspected ongoing PVCs rather than a. fib (12) Thrombocytopenia: Plan: history of above problem, resolved Plan: VTE prophylaxis - continue apixaban Admission and Anticipated Discharge Date Admission Date: September 18, 2020 Subjective Doing well with eating. No acute events overnight. Having BM. CR/BUN stable despite IV fluids. Reports not feeling dry. Anemia mildly worse today, he denies any dizziness, chest pain or shortness of breath. Updated his over the phone. All questions answered. Review of Systems Review of Systems: All systems reviewed & are unremarkable except as noted in HPI & below Physical Exam Constitutional: WD/WN, vitals as above ENMT: Mouth: oral mucous membranes not dry Respiratory: normal respiratory effort, lungs clear to auscultation Cardiovascular: RRR, no murmur, no edema Rate/Rhythm: regular rate and + irregularly irregular Gastrointestinal (Abdomen): Inspection/Auscultation: + abdomen distended Percussion/Palpation: abdomen soft; abdomen nontender Musculoskeletal: no cyanosis or clubbing, extremities motor strength 5/5 Skin: no rashes, warm and dry Neurologic: moves all extremities and awake; not confused Psychiatric: A+Ox3, euthymic affect Results & Data Results & Data ([facility]) Vital Signs (Past 12 Hours) Vital Signs Temp Pulse Resp BP BP Pulse Ox 10/09/20 16:02 36.4 C L 71 16 104/63 94 10/09/20 07:46 36.7 C 80 16 144/68 H 95 PG Care Time/CCT Total # of Minutes Spent Total Time Spent with Patient: Total time spent is greater than 50% in coordination of care (as documented) at patient's floor/unit and/or counseling patient: Coding Level of Care Code 17774 Subseq Hosp Care Lvl 2 Diagnoses Postoperative ileus K91.89; K56.7 Acute GI bleeding K92.2 Colon adenocarcinoma C18.9 Acute blood loss anemia D62 Community acquired bacterial pneumonia J15.9 Acute pain of right knee M25.561 Diabetes mellitus with kidney complication E11.29 Urothelial carcinoma of bladder C67.9 Dyslipidemia E78.5 Hypertension I10 Paroxysmal atrial fibrillation I48.0 Thrombocytopenia D69.6
[2020-10-10] MEDS: INSULIN ASPART 100 UNITS/ML 3 ML PEN SC SCH ×6 (00:33→21:03)
[2020-10-10 06:38] LABS: Hematocrit (blood only) 24.2 % (42-52); Hemoglobin 7.4 g/dL (14.0-18.0); Mean Corpuscular Hemoglobin 25.7 pg (25-34); Mean Corpuscular Hgb Conc 30.6 g/dL (32-36); Mean Platelet Volume 9.4 fL (7.4-10.4); Platelet Count 269 K/uL (130-400); RDW Coefficient of Variation 17.1 % (11.5-14.5); RDW Standard Deviation 52.4 fL (36.4-46.3); Red Blood Count 2.88 M/uL (4.7-6.1); White Blood Count 5.04 K/uL (4.8-10.8)
[2020-10-10 07:12] LABS: BUN Creatinine Ratio 23.2 (10-20); Calcium 7.9 mg/dl (8.5-10.1); Creatinine Clr Calc Pharmacy 37.2 ml/min; Est GFR (African American) 49.3 ml/min; Est GFR (Non-African American) 42.5 ml/min; Potassium 3.9 mmol/L (3.5-5.1)
[2020-10-10] MEDS: APIXABAN 2.5 MG TAB PO SCH ×2 (09:11→21:11)
[2020-10-10] MEDS: PANTOprazole 40 MG TAB PO SCH (09:12)
[2020-10-10] MEDS: FAMOTIDINE 20 MG TAB PO SCH (09:12)
[2020-10-10] MEDS: FLUTICASONE PROPIONATE NA SPR 16 GM BTL NAE SCH ×2 (09:12→21:11)
[2020-10-10] MEDS: INSULIN GLARGINE SOLOSTAR 100 UNITS/ML 3 ML PEN SC SCH (09:12)
--- NOTE | 2020-10-10 09:26 | Pharmacy Report ---
Pharmacy Glycemic Short Note 2 - Date of Service October 10, 2020 - Glycemic Short BSG Results (Last 24 hours): 10/09/20 10/09/20 10/09/20 12:17 17:23 17:47 Glucose POC Glucose 233 H 62 L* 62 L* 10/09/20 10/09/20 10/09/20 17:48 18:11 20:29 Glucose POC Glucose 62 L* 98 132 H 10/10/20 10/10/20 10/10/20 00:19 04:10 06:10 Glucose 87 POC Glucose 113 H 100 H 10/10/20 07:51 Glucose POC Glucose 116 H OUTPATIENT ANTIDIABETIC REGIMEN: * Glipizide XL 10mg PO daily ASSESSMENT: 10/10/20: * Raphael received 44 units of insulin yesterday (20 units basal + 24 units bolus) * BSGs continue to fluctuate despite only minor changes being made to novolog insulin. Patient had an episode of hypoglycemia yesterday around dinnertime. BSGs tend to be lowest around dinner and bedtime, therefore I will loosen novolog CF and CR after breakfast. Keep tighter carb coverage with breakfast to avoid BSG spike at lunch. * Fasting BSG at goal. 10/07/20 * BSGs yesterday were 753-183-91-75 mg/dL. Fasting today was 160 mg/dL. * Continue Lantus 20 units daily. * Loosen CF and CR as patient trends down throughout the day. * Patient is now on dextrose infusion BUT his kidney function significantly spiked. * Will Continue current regimen and NOT add back the scheduled Novolog with dextrose infusion. Overnight checks to ensure 24 hour coverage. 10/06/20 * Patient's BSGs yesterday were [phone] mg/dL. He received 20 units of Lantus plus Novolog 37 units (57 units of SQ insulin) plus 10 units of insulin in TPN. * Fasting today is 199 mg/dL. This is most likely because BSGs were not checked overnight. * Continue Lantus 20 units. * Lunch BSG trended down significantly. Loosen CF. Continue tight CR. * Dextrose in TPN cut in half. Continue with 10 units in IV as this is more re asonable (represents carbohydrate ratio of 10 as before was 20). * Overnight checks to prevent higher AM BSG. 10/05/20: * Pt received around total 31 units of insulin yesterday; 20 units basal + 1 uni t bolus + IV Regular insulin 10 units in TPN ongoing infusion. * BSGs yesterday were well controlled. Fasting BSG today was 125 mg/dl. Continued basal insulin at same dose. * Pt was NPO yesterday. Today at lunch, clear liquid diet is ordered. Novolog CR tightened. * Pre-lunch BSG is also trending up to 184 mg/dl. * Current TPN bag has 150 gm of Dextrose, new bag starting at 1600 today will have 200 gm of Dextrose. This and the diet ordered will most likely cause the sugars to trend up. * However, continued with same amount of insulin in the new TPN bag for now until we see the rise in BSGs. Patient was hypoglycemic on the from too much Novolog and wanted to avoid this from happening again. * Re-assess amount of insulin in TPN tomorrow and possibly further tightening of Novolog CR. 10/03/20: * Pt received total 31 units of insulin yesterday; 20 units basal + 11 units bolus. * Fasting BSG was high at 186 mg/dl. Basal insulin continued the same. * Post prandial BSGs also high. This is most likely due to the Dextrose in the IV fluids running at 100 cc/hr. This had caused hyperglycemia few days ago. * Resumed Novolog 4 units q4h (hold if BSG < 130 mg/dl) to cover the carbs in the fluids. Hold this Novolog if Dextrose is cut in the fluids. Background: * 85 year old male admitted with GI bleed, colonic mass, surgery planned likely for Thursday * Type 2 diabetic maintained on oral antidiabetic agents as an outpatient * Oral agents are not recommended for inpatient use d/t drug interactions, changing PO intake, and difficulty titrating for acute hyper/hypoglycemia. ADA recommends re-initiating outpatient oral agents 1-2 days prior to discharge if/when appropriate if they were held on admission. * Will hold oral agents for admission and utilize SQ basal bolus insulin regimen which is the recommended regimen for inpatient glycemic control. * Will initiate weight based insulin dosing for insulin yumiko patient and titrate based on BSG trends. * Patient has had 0 units of insulin since admission, blood sugars above goal, 175-252mg/dl in the past 24 hours PLAN FOR INPATIENT GLYCEMIC CONTROL: * Hold outpatient oral diabetes medications * Basal insulin: * Continue Lantus 20 units SQ qAM * Bolus insulin: * NovoLog per scale ACHS or Q6hrs while NPO * Goal Range: Low 110 mg/dL - High 140 mg/dL Breakfast: * Correction Factor: 30 mg/dL/unit * Nutritional / Prandial insulin per carb ratio of 1 unit per 4 grams CHO consumed Lunch/dinner/HS: * Correction Factor: 40 mg/dL/unit * Nutritional / Prandial insulin per carb ratio of 1 unit per 6 grams CHO consumed PLAN FOR DISCHARGE: * HbA1C is reasonable for patient's comorbidities. He has had significant blood loss recently so this may affect HbA1C. * Reasonable to check BSGs at various times to establish true blood sugar control and adjust as needed.
[2020-10-10] MEDS ORDERED: IRON SUCROSE 300 MG in SODIUM CHLORIDE 0.9% 250 ML IV ONE (13:30)
[2020-10-10 14:16] LABS: Ferritin 17.2 ng/ml (8-388)
--- NOTE | 2020-10-10 17:52 | Hospitalist Progress Note ---
Date of Service October 10, 2020 Assessment & Plan (1) Postoperative ileus: Plan: post op ileus, now resolved (2) Acute GI bleeding: Plan: Initial rectal bleeding from colon masses. S/p Open subtotal colectomy by Dr Alvarez 09/27, acute blood loss anemia s/p 2 units PRBC 09/18. Hgb stable but remains low. Transferring sats 4% Iron deficiency approx 1000mg, Give Venofer 300mg IV today and tomorrow. If Hgb stable and renal function improved without IV fluids can discharge to [facility]. (3) Acute blood loss anemia: Plan: as above (4) Colon adenocarcinoma: Plan: Invasive well-differentiated adenocarcinoma on colonoscopy biopsy pathology on surgical biopsy two separate primary adenocarcinomas will need onc referal to consider treatment once recovered (5) Community acquired bacterial pneumonia: Plan: Resolved. Previous x-ray of chest shows: left lower lobe consolidation which favored pneumonia. - Finished course of ceftriaxone (azithromycin one dose given on 09/22 but subsequently discontinued) - Video swallow postponed bedside evaluation was good the patient (6) Acute pain of right knee: Plan: this appears to be a chronic problem, will monitor (7) Diabetes mellitus with kidney complication: Plan: HbA1C 7.5 basal bolus insulin and glycemic consult (8) Urothelial carcinoma of bladder: Plan: urostomy on right abdomen - draining clear yellow urine (9) Dyslipidemia: Plan: Continue atorvastatin (10) Hypertension: Plan: Holding anti-hypertensives and monitoring due to blood loss/surgery BP stable off home meds (11) Paroxysmal atrial fibrillation: Plan: NSR 80s with PVCs when he was on telemetry, irregular hear rhythm suspected ongoing PVCs rather than a. fib Continue anticoagulation with apixaban 2.5mg PO BID (12) Thrombocytopenia: Plan: history of above problem, resolved Plan: VTE prophylaxis - continue apixaban Admission and Anticipated Discharge Date Admission Date: September 18, 2020 Subjective Remains anemic but no dizziness, shortness of breath. Renal function only mildly improved despite D5W. Review of Systems Review of Systems: All systems reviewed & are unremarkable except as noted in HPI & below Physical Exam Constitutional: WD/WN, vitals as above ENMT: Mouth: oral mucous membranes not dry Respiratory: normal respiratory effort, lungs clear to auscultation Gastrointestinal (Abdomen): Percussion/Palpation: abdomen soft; abdomen nontender Musculoskeletal: no cyanosis or clubbing, extremities motor strength 5/5 Skin: no rashes, warm and dry Neurologic: moves all extremities and awake; not confused Psychiatric: A+Ox3, euthymic affect Results & Data Results & Data ([facility]) Vital Signs (Past 12 Hours) Vital Signs Temp Pulse Pulse Resp BP BP Pulse Ox 10/10/20 15:40 36.5 C 87 16 137/52 L 96 10/10/20 11:43 37.0 C 78 20 130/60 95 10/10/20 08:24 36.8 C 80 19 130/64 95 10/10/20 07:41 36.9 C 91 H 16 165/84 H 96 PG Care Time/CCT Total # of Minutes Spent Total Time Spent with Patient: Total time spent is greater than 50% in coordination of care (as documented) at patient's floor/unit and/or counseling patient: Coding Level of Care Code 64552 Subseq Hosp Care Lvl 2 Diagnoses Postoperative ileus K91.89; K56.7 Acute GI bleeding K92.2 Acute blood loss anemia D62 Colon adenocarcinoma C18.9 Community acquired bacterial pneumonia J15.9 Acute pain of right knee M25.561 Diabetes mellitus with kidney complication E11.29 Urothelial carcinoma of bladder C67.9 Dyslipidemia E78.5 Hypertension I10 Paroxysmal atrial fibrillation I48.0 Thrombocytopenia D69.6
[2020-10-11 06:14] LABS: Hematocrit (blood only) 24.4 % (42-52); Hemoglobin 7.5 g/dL (14.0-18.0); Mean Corpuscular Hemoglobin 25.9 pg (25-34); Mean Corpuscular Hgb Conc 30.7 g/dL (32-36); Mean Corpuscular Volume 84.1 fL (80-100); Mean Platelet Volume 9.8 fL (7.4-10.4); Platelet Count 262 K/uL (130-400); RDW Coefficient of Variation 17.1 % (11.5-14.5); RDW Standard Deviation 52.6 fL (36.4-46.3); White Blood Count 4.97 K/uL (4.8-10.8)
[2020-10-11 06:46] LABS: BUN Creatinine Ratio 28.2 (10-20); Creatinine Clr Calc Pharmacy 42.7 ml/min; Est GFR (African American) 58.2 ml/min; Est GFR (Non-African American) 50.2 ml/min; Potassium 3.6 mmol/L (3.5-5.1)
[2020-10-11] MEDS ORDERED: INSULIN ASPART 100 UNITS/ML 3 ML PEN SC SCH (07:30)
[2020-10-11] MEDS: INSULIN GLARGINE SOLOSTAR 100 UNITS/ML 3 ML PEN SC SCH (09:06)
[2020-10-11] MEDS: PANTOprazole 40 MG TAB PO SCH (09:06)
[2020-10-11] MEDS: FLUTICASONE PROPIONATE NA SPR 16 GM BTL NAE SCH (09:06)
[2020-10-11] MEDS: APIXABAN 2.5 MG TAB PO SCH (09:06)
[2020-10-11] MEDS: FAMOTIDINE 20 MG TAB PO SCH (09:06)
[2020-10-11] MEDS ORDERED: IRON SUCROSE 300 MG in SODIUM CHLORIDE 0.9% 250 ML IV ONE (09:30)
[2020-10-11 09:41] LABS: Magnesium 1.9 mg/dl (1.8-2.4); Phosphorus 3.3 mg/dl (2.5-4.9)
--- NOTE | 2020-10-11 10:25 | Surgery Progress Note ---
Date of Service October 11, 2020 Assessment & Plan (1) Colon adenocarcinoma: Plan: POD#14 subtotal colectomy Patient is doing well Denies any abdominal complaints. Tolerating a diet. + bowel function Will remove wally today and place steri-strips Per case management notes he appears that he will be discharged to [facility] today Pt to follow up with Dr. Alvarez in about 1 month Admission and Anticipated Discharge Date Admission Date: September 18, 2020 Subjective Patient feeling well. Tolerating a diet. Having + bowel function. Denies a bdominal pain, nausea/vomiting. Physical Exam Physical Exam: awake/alert Gastrointestinal (Abdomen): Inspection/Auscultation: + abdominal surgical incision (c/d/i, no signs of infection. wally removed.); abdomen not distended Percussion/Palpation: abdomen soft; abdomen nontender Results & Data ([facility]) Vital Signs (Past 12 Hours) Vital Signs Temp Pulse Pulse Resp BP BP Pulse Ox 10/11/20 07:53 36.9 C 88 18 134/60 96 10/11/20 06:35 36.9 C 79 17 134/66 94 10/10/20 22:58 37.0 C 87 17 110/58 L 95 PG Care Time/CCT Total # of Minutes Spent Total Time Spent with Patient: Total time spent is greater than 50% in coordination of care (as documented) at patient's floor/unit and/or counseling patient: Coding Level of Care Code None Diagnoses Colon adenocarcinoma C18.9
--- NOTE | 2020-10-11 10:37 | Discharge Summary ---
Date of Service October 11, 2020 Admission HPI Per Admitting Provider 84 yo male who comes in with a subacute 3 week history of a cough, and having his right knee buckle while ghetting up frokm the bathroom. Patient denies nay other symptoms. Patient when he came in the ER, was found to be anemic, and having elevated lactic acidosis, TRAVIS. Patient is on apixaban. On exam, patient was found to have dark red stool. Principal Diagnosis Acute blood loss anemia Colon adenocarcinoma Aspiration pneumonia Discharge Exam Constitutional WD/WN, vitals as above ENMT Mouth: oral mucous membranes not dry Respiratory normal respiratory effort, lungs clear to auscultation Cardiovascular RRR, no murmur, no edema Rate/Rhythm: regular rate and + irregularly irregular Gastrointestinal (Abdomen) Inspection/Auscultation: + abdomen distended Percussion/Palpation: abdomen soft; abdomen nontender Musculoskeletal no cyanosis or clubbing, extremities motor strength 5/5 Skin no rashes, warm and dry Neurologic moves all extremities and awake; not confused Psychiatric A+Ox3, euthymic affect Discharge Data Allergies Allergy/AdvReac Type Severity Reaction Status Date / Time No Known Drug Allergies Allergy Verified 09/20/20 15:40 Consultations 09/18/20 13:36 ED Decision to Admit Stat 09/18/20 13:57 Consult Gastroenterology Routine 09/20/20 17:30 Consult General Surgery Routine 09/25/20 08:00 Consult Anesthesiology Routine Procedures Performed Operation Date: 09/19/20 17:00 <No data on this case meets the specified criteria> Operation Date: 09/20/20 17:00 Actual Procedures p Esophagogastroduodenoscopy - Yousif Barragan Case, DO s Colonoscopy Biopsy Cytology - Yousif Barragan Case, DO Operation Date: 09/27/20 07:00 Actual Procedures p Open Subtotal Colectomy(Not Applicable) - Yohan Alvarez MD, FACS Ordered Studies 09/20/20 17:29 CT abd pelvis oral and IV con Urgent IMPRESSION: 1. Postsurgical changes of a prior prostatectomy, and cystectomy with ileal loop diversion 2. No evidence of bowel obstruction. No evidence of free air 3. Bowel wall thickening and luminal narrowing involving the proximal transverse colon suspicious for a colon carcinoma 4. To small to characterize 4 mm hypodensity within the right hepatic lobe 5. Lower lobe bronchial wall thickening, mucous plugging, and bibasilar nodular opacities CT chest diagnostic w con Urgent IMPRESSION: 1. 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 Too numerous to count calcified pulmonary nodules, likely postinflammatory 3. Lower lobe bronchial wall thickening, mucous plugging, and peripheral opacities atelectatic versus infectious/inflammatory 4. No evidence of intrathoracic metastasis. 09/27/20 07:03 US - OR guided needle placemen Routine Hospital Course (1) Postoperative ileus: (2) Acute GI bleeding: (3) Acute blood loss anemia: (4) Colon adenocarcinoma: (5) Community acquired bacterial pneumonia: (6) Acute pain of right knee: (7) Diabetes mellitus with kidney complication: (8) Urothelial carcinoma of bladder: (9) Dyslipidemia: (10) Hypertension: (11) Paroxysmal atrial fibrillation: (12) Thrombocytopenia: Raphael Espinosa is an 85 year old male admitted to [facility] from September 18 - October 11, 2020 due to 3 week history of cough. In the ER he was noted to have severe anemia, acute kidney injury and lactic acidosis. He was transfused 2 units of packed red blood cells. As anemia workup he underwent colonoscopy and upper endoscopy which showed malignant partially obstructing tumors in the ascending and transverse colons. Unfortunately his surgery was delayed due to community/aspiration pneumonia and required intravenous antibiotics. He underwent open subtotal colectomy on September [address] Alvarez. His course was further complicated due to post operative ileus requiring a short course of total parental nutrition. He is now tolerating regular diabetic diet. Due to persistent (although stable) anemia with transferrin saturations of 6% he was transfused Venofer 300mg IV x2. Consider additional Venofer 300mg IV in approximately 1 week he he remains significantly anemic. Please repeat CBC and BMP in approximately 1 week. Colon mass from surgery was confirmed as an adenocarcinoma. He should follow up with oncology on discharge. Regarding his diabetes. He has been converted over to Lantus 20 units in the morning from his prior glipizide dosing. Consider switching this back as his diet and weight improve. Regarding his hypertension. Blood pressure has been well controlled off his usual blood pressure medication therefore these have been discontinued. He was started on famotidine and pantoprazole for reflux. Suspect much of this was due to his obstruction however and would consider weaning these as an outpatient. Total Time Total Time Spent Total Time Spent (In Minutes): 50 Discharge Plan Discharge Items Patient Disposition: Transfer Inpatient Rehab Fac Reason For Visit: GI BLEED Discharge Diagnosis: Acute blood loss anemia Colon adenocarcinoma Aspiration pneumonia Activity: Per Instructions section Lifting: No more than 10 pounds Bathing Comment: may shower; no soaking in tubs/pools Exercise/Sports: Wait until after follow-up appointment Driving/Machine Use: no driving while taking narcotics for pain Non-emergency contact: Surgeon Call non-emergency contact if: you have any medication questions, your symptoms worsen, your pain is not controlled, your pain is worsening, your pain is unusual for you, you have a fever, your temperature is above 101.5, your wound has increased redness, your wound has increased drainage and your wound pain has increased Follow-up/Referrals: Carlito Caro CRNP [Primary Care Provider] - Yohan Alvarez MD, FACS [Surgeon] - (please call to schedule follow up in clinic within 1 month) Yoni Kim DO [Physician] - (Follow up adenocarcinoma) Diet: Low Fiber Addtl Attending Provider Instructions: Elida Espinosa is an 85 year old male admitted to [facility] from September 18 - October 11, 2020 due to 3 week history of cough. In the ER he was noted to have severe anemia, acute kidney injury and lactic acidosis. He was transfused 2 units of packed red blood cells. As anemia workup he underwent colonoscopy and upper endoscopy which showed malignant partially obstructing tumors in the ascending and transverse colons. Unfortunately his surgery was delayed due to community/aspiration pneumonia and required intravenous antibioti cs. He underwent open subtotal colectomy on September [address] Alvarez. His course was further complicated due to post operative ileus requiring a short course of total parental nutrition. He is now tolerating regular diabetic diet. Due to persistent (although stable) anemia with transferrin saturations of 6% he was transfused Venofer 300mg IV x2. Consider additional Venofer 300mg IV in approximately 1 week he he remains significantly anemic. Please repeat CBC and BMP in approximately 1 week. Colon mass from surgery was confirmed as an adenocarcinoma. He should follow up with oncology on discharge. Regarding his diabetes. He has been converted over to Lantus 20 units in the morning from his prior glipizide dosing. Consider switching this back as his diet and weight improve. Regarding his hypertension. Blood pressure has been well controlled off his usual blood pressure medication therefore these have been discontinued. He was started on famotidine and pantoprazole for reflux. Suspect much of this was due to his obstruction however and would consider weaning these as an outpatient. Kind regards, Dr Kenroy Hanna Mortgage Loan Originator Provider Instructions: Surgery intructions: Please change your surgical dressings daily with dry 4x4 gauze and medipore tape. Pending Studies at Discharge: No Stand-Alone Forms: My [facility] Skilled Items Patient informed of condition?: Yes DNR: No Discharge Level of Care: Acute rehab Communicable Disease: No Discharge Prognosis: Stable Lines: None Urinary Catheter: No Medications and DC Order Prescriptions: New pantoprazole 40 mg Tablet,Delayed Release (Dr/Ec) 40 mg PO QAM Qty: 30 RF: 0 famotidine 20 mg Tablet 20 mg PO QAM Qty: 30 RF: 0 Lantus Solostar U-100 Insulin 100 unit/mL (3 mL) Insulin Pen 20 unit SC DAILY Qty: 15 RF: 0 Continued Eliquis 2.5 mg tablet 2.5 mg PO BID Qty: 180 RF: 1 (DME) lancets [OneTouch UltraSoft Lancets] Misc See Dose Instructions .ROUTE .MEDSUPPLY Qty: 100 RF: 3 blood sugar diagnostic [OneTouch Ultra Blue Test Strip] Strip See Rx Instructions .ROUTE .COMPLEX Qty: 100 RF: 1 (DME) drainage bag 2,000 mL misc See Rx Instructions .ROUTE .MEDSUPPLY Qty: 6 RF: 1 miscellaneous medical supply Misc See Rx Instructions .ROUTE .COMPLEX Qty: 1 RF: 1 miscellaneous medical supply Misc See Rx Instructions .ROUTE .COMPLEX Qty: 30 RF: 1 miscellaneous medical supply Misc See Rx Instructions .ROUTE .COMPLEX Qty: 50 RF: 1 (DME) Kami Cohesive Seals Misc See Rx Instructions .ROUTE .MEDSUPPLY Qty: 20 RF: 1 (DME) Carmen-Fit Natura Urostomy Pouch 1 3/4 " misc See Rx Instructions .ROUTE .MEDSUPPLY Qty: 60 RF: 1 (DME) adhesive remover [Uni-Solve Adhesive Remover] Liquid See Rx Instructions .ROUTE .MEDSUPPLY Qty: 240 RF: 1 cholecalciferol (vitamin D3) [Vitamin D3] 1,000 unit capsule 1,000 units PO QAM RF: 0 Macular Health Formula 5-1-7.5 mg capsule 1 cap PO QAM RF: 0 coenzyme Q10 [Co Q-10] 100 mg capsule 100 mg PO QAM Qty: 30 RF: 0 cyanocobalamin (vitamin B-12) [Vitamin B-12] 100 mcg tablet 0 mcg PO QAM RF: 0 garlic [garlic oil] 1,000 mg capsule 1,000 mg PO QAM RF: 0 fexofenadine [Ally Allergy] 180 mg Tablet 180 mg PO DAILY PRN (Reason: Allergy Symptoms) RF: 0 Glucosamine Chondroitin 550-30-1 mg Capsule 1 cap PO QAM RF: 0 atorvastatin [Lipitor] 40 mg tablet 40 mg PO QAM RF: 0 Discontinued acetaminophen [Acetaminophen Extra Strength] 500 mg tablet 500 mg PO QAM RF: 0 polyethylene glycol 3350 [Miralax] 17 gram/dose powder 17 g PO HS RF: 0 Metamucil Packet 1 packet PO QAM RF: 0 Mucinex 1,200 mg Tablet Extended Release 12hr 1,200 mg PO BID RF: 0 glipizide [Glucotrol XL] 10 mg tablet extended release 24hr 10 mg PO QAM RF: 0 amlodipine [Norvasc] 5 mg tablet 5 mg PO QAM RF: 0 lisinopril [Zestril] 10 mg tablet 10 mg PO QAM RF: 0 Discharge Orders: Discharge Order (Routine); Ordered 10/11/20 Ordered By: Kenroy Zarate/Other Patient Handouts: A1C, Managing Type 2 Diabetes Admission Data Admit Date/Time: 09/18/20 14:00 Attending Provider: Kenroy Graves Admit Provider: Raphael Douglas Primary Care Provider: Carlito Caro Other Providers: Yousif Crowe ; Antonio Dupree ; Roger Chinchilla Other Interventions: Discharge Summary Assessment (RN) Last Done: 10/11/20 14:09 Coding Level of Care Code D/C DAY MANAGEMENT >30 MINS Diagnoses Postoperative ileus K91.89; K56.7 Acute GI bleeding K92.2 Acute blood loss anemia D62 Colon adenocarcinoma C18.9 Community acquired bacterial pneumonia J15.9 Acute pain of right knee M25.561 Diabetes mellitus with kidney complication E11.29 Urothelial carcinoma of bladder C67.9 Dyslipidemia E78.5 Hypertension I10 Paroxysmal atrial fibrillation I48.0 Thrombocytopenia D69.6
[2020-10-11] MEDS: INSULIN ASPART 100 UNITS/ML 3 ML PEN SC SCH (13:08)
== END 2020-10-11 16:11 | DRG 329 ==
LOC: ED 08:41 → 2S 14:00 → SUATTDRO 14:00 → 2S 16:16 → 3N 09-29 14:03

== ENCOUNTER 2022-04-06 08:35 | Inpatient (IN) ==
[2022-04-06] MEDS ORDERED: DEXTROSE 50% 50 ML SYRINGE IV ONE (08:43)
[2022-04-06] MEDS ORDERED: DEXTROSE 50% 50 ML SYRINGE IV STA (08:44)
[2022-04-06] MEDS ORDERED: SODIUM CHLORIDE 0.9% 1000ML 1,000 ML IV ONE (08:44)
--- NOTE | 2022-04-06 08:49 | Emergency Department Note ---
Impression & Plan Acute metabolic encephalopathy due to hypoglycemia, Acute dehydration ED Provider Note Name: CHASITY RUTH Age: 86 Sex: M Arrives Via: Ambulance Informant: and EMS ED Provider: Evaristo Monson MD Chief Complaint: Altered mental status Impression: As per impressions above Medical Decision Makin-year-old gentleman with a past medical history of CKD, paroxysmal A. fib, diabetes amongst others arrives for evaluation of worsening mental status last few days and then severe hypoglycemia this morning as checked by . Multiple attempts by EMS to get blood sugar back up including D10 infusion without much success. Still hypoglycemic on arrival. Immediately given amp of D10. He does seem to have come more around with it. He is still a bit confused and I will note he is clearly dehydrated. He was given further IV fluids. Mental status continues to improve but he still somewhat confused. Unfortunately there was a lab issue causing prolonged return of electrolytes and liver testing. He was treated empirically for presumed renal failure given the difficulty of treating hypoglycemia while being on oral meds and the fact he is quite dehydrated fani earing hospitalist was consulted for further management. At this point I do not feel the patient is actively septic. I do not feel that an broad-spectrum antibiotics would be indicated given no clear evidence of source of infection at this time. His procalcitonin is less than 0.5 he does not have a elevated white blood cell count nor is he febrile. He does have an elevated troponin which I suspect is type II NSTEMI versus just purely renal failure related. I also reviewed the wound notes from the last few weeks in outpatient setting. Prior Medical Record and Triage/Nursing Notes reviewed by Me Differentials:Infection, hypoglycemia, electrolyte abnormalities, overdose, toxicologic, cardiac sources, intracerebral event, neurologic, trauma, as well as other pathologies. Vital Signs: reviewed and remarkable for no significant abnormalities Interventions: D50 amp, 1 L normal saline bolus Labs:Reviewed and remarkable for extensive abnormalities these were reviewed as per chart and MDM Imagin view chest x-ray interpreted by me no overt pulmonary congestion or infiltrate. A CT scan of the head reviewed by me and read by radiology no acute findings. EKG:Per My Interpretation: Indication altered mental status. A. fib at 85 bpm with a QTC of 435. There is no ischemia appreciated. When comparing to September 18, 2020 EKG he is now in A. fib from normal sinus rhythm Cardiac/Tele Monitoring: Cardiac Monitoring: An Order was placed for continuous cardiac monitoring. The monitor shows a rate of 80 with a afib rhythm. Consults:Dr Ely UREÑA Hospitalist Plan: Disposition:Hospitalization. Condition: Fair History of Present Illness:86-year-old gentleman arrives for evaluation of altered mental status. Patient is confused and story obtained from at bedside. She notes when she woke up this morning with him he was not acting himself. Unable to get him up and thus called 911. Blood sugar was in the 30s. He was given multiple rounds of glucose without improvement. He was brought to the ER for further evaluation. According to patient has been eating well the last few weeks and months and especially the last few days. He has been very weak and even had a fall yesterday. She is unsure if he hit his head but he did not abrades his right elbow. She states usually he is awake and talkative. Notes dealing with ulcerations on the legs as well as a healing right buttock ulcer. Denies any breathing difficulty but states periodically he will throw up. No further information really available due to confusion of patient. Per chart patient is diabetic on oral medications. He does not take any insulin injections per . He is on Eliquis for a chronic A. fib history. Past History:See Below Home Medications:See Below Allergies:No known drug allergies Vitals:As per chart Physical Exam: GENERAL: Patient is unwell, encephalopathic appearing and in no acute distress. Cachectic EYES: No scleral icterus, unremarkable pupils. ENT: Mucous membranes dry, no nasal congestion. Emesis at corner right mouth NECK: No masses appreciated, nomeningismus, trachea is midline. RESPIRATORY: Shallow respirations but no significant respiratory distress and he does have clear lungs bilaterally CARDIOVASCULAR: Irregular.No murmurs, rubs, gallops appreciated. GASTROINTESTINAL: Abdomen soft, non-tender, no peritonitis.Bowel sounds positive.No masses appreciated. EXTREMITIES: Normal motion all extremities, no cyanosis, no edema. NEUROLOGIC: Encephalopathic weakly looking around the room, weakly moves all extremities though not significantly following directions. SKIN: No rash, no jaundice, no diaphoresis. Abrasion right elbow GCS: 14 ED Course: Times/Reassessments: Patient much improved with IV fluids and D50. Hospitalist in to evaluate Evaristo Monson MD Past Med/Surg History Medical History Allergic rhinitis AMD (age related macular degeneration) Anemia Chronic osteoarthritis Diabetes mellitus with kidney complication Dyslipidemia Hypertension MGUS (monoclonal gammopathy of unknown significance) Osteopenia Peripheral neuropathy Premature ventricular contractions Proteinuria Stage III chronic kidney disease Thrombocytopenia 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) Venous insufficiency Vitamin D deficiency Surgical History H/O colectomy (09/27/20) History of total cystectomy (05/2010) S/P Mohs surgery for basal cell carcinoma (04/2020) Family History Father Myocardial infarction Denies family history of Ovarian cancer Prostate cancer Breast cancer Colorectal cancer Social History Smoking Status: Former smoker Age Started Using Tobacco: 16; Age Quit Using Tobacco: 22; Second Hand Exposure: No; Do You Dip or Chew Tobacco: No; Hx Alcohol Use: Yes Alcohol type: beer Alcohol Intake Frequency: Monthly or Less Hx Substance Use: No Preferred Language: [place] Communication Ability: Effective Visual Impairment: No Limitations Hearing Ability: Hard of Hearing 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 Retention 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 Required: No Beliefs That Will Affect Care: None marital status: Current Living Situation: Spouse current occupational status: retired How many Children do You have: 3 Other Information That Helps Us Care for You: No Feels Safe at Home: Yes Safety Concerns: Feels Safe At This Time Childhood Exposure to Second-Hand Smoke: Yes Diet Comment: regular caffeine: No during the past year weight has: remained stable Dental Care, Regularly: Yes Physical Activity Frequency: Daily Seatbelt Use: always Sunscreen Use: Yes Assistive Devices: Glasses and Walker Allergies Allergies Allergy/AdvReac Type Severity Reaction Status Date / Time No Known Drug Allergies Allergy Verified 04/01/22 11:17 Home Meds Home Medications Medication Instructions Recorded Confirmed coenzyme Q10 100 mg capsule (Co 100 mg PO QAM #30 caps 10/19/18 04/06/22 Q-10) heslduho-icm-nommax 5 mg-zeaxanth 1 cap PO QAM 10/19/18 04/06/22 1 mg-bilberry 7.5 mg-herbal capsule (Macular Health Formula) fexofenadine 180 mg tablet 180 mg PO DAILY PRN Allergy 09/18/20 04/06/22 (Ally Allergy) Symptoms acetaminophen 500 mg capsule 500 mg PO Q6H PRN Pain 12/10/20 04/06/22 ascorbate calcium (vitamin C) 500 500 mg PO DAILY 12/10/20 04/06/22 mg tablet cyanocobalamin (vitamin B-12) 100 100 mcg PO QAM 12/10/20 04/06/22 mcg tablet (Vitamin B-12) coffee extract 50 mg-phosphatidyl 1 tab PO HS 04/06/22 04/06/22 serine 50 mg chewable tablet (Neuriva Original) zinc acetate 50 mg (zinc) capsule 50 mg PO DAILY 04/06/22 04/06/22 Previous Rx's Medication Instructions Recorded famotidine 20 mg tablet 20 mg PO QAM #90 tabs 11/18/21 metformin 500 mg tablet,extended 500 mg PO BID #180 tabs 12/16/21 release 24 hr lisinopril 10 mg tablet 10 mg PO DAILY #90 tabs 01/28/22 apixaban 2.5 mg tablet (Eliquis) 2.5 mg PO BID #180 tabs 02/13/22 atorvastatin 40 mg tablet (Lipitor) 40 mg PO QAM #90 tabs 03/19/22 glipizide 10 mg tablet, extended 10 mg PO QAM #90 tabs 03/19/22 release 24 hr linagliptin 5 mg tablet (Tradjenta) 5 mg PO DAILY #90 tabs 03/20/22 Results & Data (ED) Vital Signs Vital Signs - 24 hr 04/06/22 10:18 04/06/22 10:10 04/06/22 10:16 Pulse Rate 82 82 Pulse Rate [Finger] 82 Pulse Rate from SpO2 Sensor Respiratory Rate 16 15 20 Respiratory Effort / Characteristics Non-Labored Respiratory Depth Normal Blood Pressure Blood Pressure [Left Arm] 104/55 L Blood Pressure Mean Blood Pressure Mean [Left Arm] 71 Pulse Oximetry 96 Oxygen Delivery Method Room Air 04/06/22 10:16 04/06/22 10:20 04/06/22 10:30 Pulse Rate 86 Pulse Rate [Finger] Pulse Rate from SpO2 Sensor Respiratory Rate 22 Respiratory Effort / Characteristics Respiratory Depth Blood Pressure 104/55 L 94/53 L Blood Pressure [Left Arm] Blood Pressure Mean 71 66 Blood Pressure Mean [Left Arm] Pulse Oximetry Oxygen Delivery Method 04/06/22 10:30 04/06/22 10:40 04/06/22 10:50 Pulse Rate 85 81 79 Pulse Rate [Finger] Pulse Rate from SpO2 Sensor Respiratory Rate 23 20 20 Respiratory Effort / Characteristics Respiratory Depth Blood Pressure Blood Pressure [Left Arm] Blood Pressure Mean Blood Pressure Mean [Left Arm] Pulse Oximetry Oxygen Delivery Method 04/06/22 11:00 04/06/22 11:00 04/06/22 11:10 Pulse Rate 86 82 Pulse Rate [Finger] Pulse Rate from SpO2 Sensor Respiratory Rate 20 21 Respiratory Effort / Characteristics Respiratory Depth Blood Pressure 103/59 L Blood Pressure [Left Arm] Blood Pressure Mean 73 Blood Pressure Mean [Left Arm] Pulse Oximetry Oxygen Delivery Method 04/06/22 11:20 04/06/22 11:30 04/06/22 11:30 Pulse Rate 67 67 Pulse Rate [Finger] Pulse Rate from SpO2 Sensor 74 Respiratory Rate 17 21 Respiratory Effort / Characteristics Respiratory Depth Blood Pressure 101/56 L Blood Pressure [Left Arm] Blood Pressure Mean 71 Blood Pressure Mean [Left Arm] Pulse Oximetry 100 Oxygen Delivery Method 04/06/22 11:40 04/06/22 11:50 04/06/22 12:00 Pulse Rate 80 83 Pulse Rate [Finger] Pulse Rate from SpO2 Sensor Respiratory Rate 13 14 Respiratory Effort / Characteristics Respiratory Depth Blood Pressure 111/63 Blood Pressure [Left Arm] Blood Pressure Mean 79 Blood Pressure Mean [Left Arm] Pulse Oximetry Oxygen Delivery Method 04/06/22 12:00 04/06/22 12:10 Pulse Rate 83 88 Pulse Rate [Finger] Pulse Rate from SpO2 Sensor 84 Respiratory Rate 16 20 Respiratory Effort / Characteristics Respiratory Depth Blood Pressure Blood Pressure [Left Arm] Blood Pressure Mean Blood Pressure Mean [Left Arm] Pulse Oximetry 100 Oxygen Delivery Method Laboratory Data 04/07/22 06:56 04/07/22 06:56 Lab Results 04/06/22 04/06/22 04/06/22 Range/Units 08:40 08:49 08:49 WBC 5.11 (4.8-10.8) K/ul RBC 3.16 L (4.70-6.10) M/uL Hgb 10.9 L (14.0-18.0) g/dl POC Hgb (14.0-18.0) g/dl Hct 33.0 L (42.0-52.0) % POC Hct (42-52) % MCV 104.4 H (80.0-100.0) fL MCH 34.5 H (25.0-34.0) pg MCHC 33.0 (32.0-36.0) g/dL RDW Std Deviation 60.9 H (36.4-46.3) fL RDW Coeff of Tasneem 15.9 H (11.5-14.5) % Plt Count 119 L (130-400) K/uL MPV 10.6 (9.4-12.4) fL Immature Gran % (Auto) 0.2 % Neut % (Auto) 89.2 % Lymph % (Auto) 6.7 % Webb % (Auto) 3.1 % Eos % (Auto) 0.8 % Baso % (Auto) 0.0 % Neut # (Auto) 4.56 (1.40-6.50) K/uL Lymph # (Auto) 0.34 L (1.2-3.4) K/uL Webb # (Auto) 0.16 (0.11-0.59) K/uL Eos # (Auto) 0.04 (0-0.50) K/uL Baso # (Auto) 0.00 (0-0.2) K/uL Immature Gran # (Auto) 0.01 (0.01-0.20) K/uL VBG pH (7.36-7.41) VBG pCO2 (38-50) mmHg VBG pO2 mmHg VBG HCO3 mmol/L VBG O2 Saturation % VBG Base Excess mEq/L POC Sodium (135-144) mmol/L Sodium 144 (136-145) mmol/L POC Potassium (3.3-5.0) mmol/L Potassium 4.4 (3.5-5.1) mmol/L POC Chloride (101-112) mmol/L Chloride 126 H (98-107) mmol/L Carbon Dioxide 10 L (21-32) mmol/L POC Total CO2 (24-31) mmol/L Anion Gap 8 (3-11) POC Anion Gap (16-25) mmol/L POC BUN (7-18) mg/dl BUN 146 H (6-23) mg/dl Creatinine 2.43 H (0.6-1.4) mg/dl POC Creatinine (0.6-1.3) mg/dl Est Cr Clr Drug Dosing 18.7 ml/min Est GFR ( Amer) 26.9 ml/min Est GFR (Non-Af Amer) 23.2 ml/min BUN/Creatinine Ratio 60.1 H (10-20) Glucose 72 (70-99(Fasting)) mg/dl POC Glucose 58 L* (70-99) mg/dl POC Glucose (other) (70-99) mg/dl Lactate (0.4-2.0) mmol/L Calcium 9.5 (8.5-10.1) mg/dl POC Ioniz Calcium Angelika (1.12-1.32) mmol/l Magnesium 2.3 (1.7-2.4) mg/dl Total Bilirubin 0.3 (0.2-1.0) mg/dl Direct Bilirubin 0.1 (0-0.2) mg/dl AST 13 (13-39) U/L ALT 11 (7-52) U/L Alkaline Phosphatase 58 (34-104) U/L Troponin I High Sens 39.9 H (0-20) pg/ml Total Protein 6.7 (6.0-8.3) gm/dl Albumin 4.0 (3.4-5.0) gm/dl Lipase 165 H (11-82) U/L Vitamin B12 (180-914) pg/ml Folate (>5.38) ng/ml Procalcitonin (0-0.5) ng/ml Urine Color Urine Appearance (Clear) Urine pH (4.5-7.5) Ur Specific Felt (1.000-1.030) Urine Protein (Negative) Urine Glucose (UA) (Negative) Urine Ketones (Negative) Urine Blood (Negative) Urine Nitrite (Negative) Urine Bilirubin (Negative) Urine Urobilinogen (Negative) Ur Leukocyte Esterase (Negative) Urine WBC (Auto) (0-5) /hpf Urine RBC (Auto) (0-4) /hpf U Hyaline Cast (Auto) (0-5) /lpf U Epithel Cells (Auto) (0-5) /lpf Urine Bacteria (Auto) (Negative) SARS-CoV-2, RNA, NAAT (NEGATIVE) 04/06/22 04/06/22 04/06/22 Range/Units 08:49 08:49 09:20 WBC (4.8-10.8) K/ul RBC (4.70-6.10) M/uL Hgb (14.0-18.0) g/dl POC Hgb (14.0-18.0) g/dl Hct (42.0-52.0) % POC Hct (42-52) % MCV (80.0-100.0) fL MCH (25.0-34.0) pg MCHC (32.0-36.0) g/dL RDW Std Deviation (36.4-46.3) fL RDW Coeff of Tasneem (11.5-14.5) % Plt Count (130-400) K/uL MPV (9.4-12.4) fL Immature Gran % (Auto) % Neut % (Auto) % Lymph % (Auto) % Webb % (Auto) % Eos % (Auto) % Baso % (Auto) % Neut # (Auto) (1.40-6.50) K/uL Lymph # (Auto) (1.2-3.4) K/uL Webb # (Auto) (0.11-0.59) K/uL Eos # (Auto) (0-0.50) K/uL Baso # (Auto) (0-0.2) K/uL Immature Gran # (Auto) (0.01-0.20) K/uL VBG pH (7.36-7.41) VBG pCO2 (38-50) mmHg VBG pO2 mmHg VBG HCO3 mmol/L VBG O2 Saturation % VBG Base Excess mEq/L POC Sodium (135-144) mmol/L Sodium (136-145) mmol/L POC Potassium (3.3-5.0) mmol/L Potassium (3.5-5.1) mmol/L POC Chloride (101-112) mmol/L Chloride (98-107) mmol/L Carbon Dioxide (21-32) mmol/L POC Total CO2 (24-31) mmol/L Anion Gap (3-11) POC Anion Gap (16-25) mmol/L POC BUN (7-18) mg/dl BUN (6-23) mg/dl Creatinine (0.6-1.4) mg/dl POC Creatinine (0.6-1.3) mg/dl Est Cr Clr Drug Dosing ml/min Est GFR ( Amer) ml/min Est GFR (Non-Af Amer) ml/min BUN/Creatinine Ratio (10-20) Glucose (70-99(Fasting)) mg/dl POC Glucose 124 H (70-99) mg/dl POC Glucose (other) (70-99) mg/dl Lactate (0.4-2.0) mmol/L Calcium (8.5-10.1) mg/dl POC Ioniz Calcium Angelika (1.12-1.32) mmol/l Magnesium (1.7-2.4) mg/dl Total Bilirubin (0.2-1.0) mg/dl Direct Bilirubin (0-0.2) mg/dl AST (13-39) U/L ALT (7-52) U/L Alkaline Phosphatase (34-104) U/L Troponin I High Sens (0-20) pg/ml Total Protein (6.0-8.3) gm/dl Albumin (3.4-5.0) gm/dl Lipase (11-82) U/L Vitamin B12 985 H (180-914) pg/ml Folate > 22.30 (>5.38) ng/ml Procalcitonin 0.13 (0-0.5) ng/ml Urine Color Urine Appearance (Clear) Urine pH (4.5-7.5) Ur Specific Felt (1.000-1.030) Urine Protein (Negative) Urine Glucose (UA) (Negative) Urine Ketones (Negative) Urine Blood (Negative) Urine Nitrite (Negative) Urine Bilirubin (Negative) Urine Urobilinogen (Negative) Ur Leukocyte Esterase (Negative) Urine WBC (Auto) (0-5) /hpf Urine RBC (Auto) (0-4) /hpf U Hyaline Cast (Auto) (0-5) /lpf U Epithel Cells (Auto) (0-5) /lpf Urine Bacteria (Auto) (Negative) SARS-CoV-2, RNA, NAAT (NEGATIVE) 04/06/22 04/06/22 04/06/22 Range/Units 09:45 11:08 11:45 WBC (4.8-10.8) K/ul RBC (4.70-6.10) M/uL Hgb (14.0-18.0) g/dl POC Hgb 10.2 L (14.0-18.0) g/dl Hct (42.0-52.0) % POC Hct 30 L (42-52) % MCV (80.0-100.0) fL MCH (25.0-34.0) pg MCHC (32.0-36.0) g/dL RDW Std Deviation (36.4-46.3) fL RDW Coeff of Tasneem (11.5-14.5) % Plt Count (130-400) K/uL MPV (9.4-12.4) fL Immature Gran % (Auto) % Neut % (Auto) % Lymph % (Auto) % Webb % (Auto) % Eos % (Auto) % Baso % (Auto) % Neut # (Auto) (1.40-6.50) K/uL Lymph # (Auto) (1.2-3.4) K/uL Webb # (Auto) (0.11-0.59) K/uL Eos # (Auto) (0-0.50) K/uL Baso # (Auto) (0-0.2) K/uL Immature Gran # (Auto) (0.01-0.20) K/uL VBG pH 7.16 L (7.36-7.41) VBG pCO2 27 L (38-50) mmHg VBG pO2 32 mmHg VBG HCO3 10 mmol/L VBG O2 Saturation 63.3 % VBG Base Excess -17.6 mEq/L POC Sodium 146 H (135-144) mmol/L Sodium (136-145) mmol/L POC Potassium 5.3 H (3.3-5.0) mmol/L Potassium (3.5-5.1) mmol/L POC Chloride 127 H (101-112) mmol/L Chloride (98-107) mmol/L Carbon Dioxide (21-32) mmol/L POC Total CO2 12 L (24-31) mmol/L Anion Gap (3-11) POC Anion Gap 13.0 L (16-25) mmol/L POC BUN > 140 H* (7-18) mg/dl BUN (6-23) mg/dl Creatinine (0.6-1.4) mg/dl POC Creatinine 2.6 H (0.6-1.3) mg/dl Est Cr Clr Drug Dosing ml/min Est GFR ( Amer) ml/min Est GFR (Non-Af Amer) ml/min BUN/Creatinine Ratio (10-20) Glucose (70-99(Fasting)) mg/dl POC Glucose (70-99) mg/dl POC Glucose (other) 248 H (70-99) mg/dl Lactate (0.4-2.0) mmol/L Calcium (8.5-10.1) mg/dl POC Ioniz Calcium Angelika 1.44 H (1.12-1.32) mmol/l Magnesium (1.7-2.4) mg/dl Total Bilirubin (0.2-1.0) mg/dl Direct Bilirubin (0-0.2) mg/dl AST (13-39) U/L ALT (7-52) U/L Alkaline Phosphatase (34-104) U/L Troponin I High Sens (0-20) pg/ml Total Protein (6.0-8.3) gm/dl Albumin (3.4-5.0) gm/dl Lipase (11-82) U/L Vitamin B12 (180-914) pg/ml Folate (>5.38) ng/ml Procalcitonin (0-0.5) ng/ml Urine Color Yellow Urine Appearance Clear (Clear) Urine pH 6.5 (4.5-7.5) Ur Specific Felt 1.012 (1.000-1.030) Urine Protein 1+ H (Negative) Urine Glucose (UA) Negative (Negative) Urine Ketones Negative (Negative) Urine Blood Trace H (Negative) Urine Nitrite Negative (Negative) Urine Bilirubin Negative (Negative) Urine Urobilinogen Negative (Negative) Ur Leukocyte Esterase Negative (Negative) Urine WBC (Auto) 1-5 (0-5) /hpf Urine RBC (Auto) 0-4 (0-4) /hpf U Hyaline Cast (Auto) 1-5 (0-5) /lpf U Epithel Cells (Auto) 10-20 H (0-5) /lpf Urine Bacteria (Auto) 2+ H (Negative) SARS-CoV-2, RNA, NAAT (NEGATIVE) 04/06/22 04/06/22 Range/Units 11:45 12:08 WBC (4.8-10.8) K/ul RBC (4.70-6.10) M/uL Hgb (14.0-18.0) g/dl POC Hgb (14.0-18.0) g/dl Hct (42.0-52.0) % POC Hct (42-52) % MCV (80.0-100.0) fL MCH (25.0-34.0) pg MCHC (32.0-36.0) g/dL RDW Std Deviation (36.4-46.3) fL RDW Coeff of Tasneem (11.5-14.5) % Plt Count (130-400) K/uL MPV (9.4-12.4) fL Immature Gran % (Auto) % Neut % (Auto) % Lymph % (Auto) % Webb % (Auto) % Eos % (Auto) % Baso % (Auto) % Neut # (Auto) (1.40-6.50) K/uL Lymph # (Auto) (1.2-3.4) K/uL Webb # (Auto) (0.11-0.59) K/uL Eos # (Auto) (0-0.50) K/uL Baso # (Auto) (0-0.2) K/uL Immature Gran # (Auto) (0.01-0.20) K/uL VBG pH (7.36-7.41) VBG pCO2 (38-50) mmHg VBG pO2 mmHg VBG HCO3 mmol/L VBG O2 Saturation % VBG Base Excess mEq/L POC Sodium (135-144) mmol/L Sodium (136-145) mmol/L POC Potassium (3.3-5.0) mmol/L Potassium (3.5-5.1) mmol/L POC Chloride (101-112) mmol/L Chloride (98-107) mmol/L Carbon Dioxide (21-32) mmol/L POC Total CO2 (24-31) mmol/L Anion Gap (3-11) POC Anion Gap (16-25) mmol/L POC BUN (7-18) mg/dl BUN (6-23) mg/dl Creatinine (0.6-1.4) mg/dl POC Creatinine (0.6-1.3) mg/dl Est Cr Clr Drug Dosing ml/min Est GFR ( Amer) ml/min Est GFR (Non-Af Amer) ml/min BUN/Creatinine Ratio (10-20) Glucose (70-99(Fasting)) mg/dl POC Glucose (70-99) mg/dl POC Glucose (other) (70-99) mg/dl Lactate 0.9 (0.4-2.0) mmol/L Calcium (8.5-10.1) mg/dl POC Ioniz Calcium Angelika (1.12-1.32) mmol/l Magnesium (1.7-2.4) mg/dl Total Bilirubin (0.2-1.0) mg/dl Direct Bilirubin (0-0.2) mg/dl AST (13-39) U/L ALT (7-52) U/L Alkaline Phosphatase (34-104) U/L Troponin I High Sens (0-20) pg/ml Total Protein (6.0-8.3) gm/dl Albumin (3.4-5.0) gm/dl Lipase (11-82) U/L Vitamin B12 (180-914) pg/ml Folate (>5.38) ng/ml Procalcitonin (0-0.5) ng/ml Urine Color Urine Appearance (Clear) Urine pH (4.5-7.5) Ur Specific Felt (1.000-1.030) Urine Protein (Negative) Urine Glucose (UA) (Negative) Urine Ketones (Negative) Urine Blood (Negative) Urine Nitrite (Negative) Urine Bilirubin (Negative) Urine Urobilinogen (Negative) Ur Leukocyte Esterase (Negative) Urine WBC (Auto) (0-5) /hpf Urine RBC (Auto) (0-4) /hpf U Hyaline Cast (Auto) (0-5) /lpf U Epithel Cells (Auto) (0-5) /lpf Urine Bacteria (Auto) (Negative) SARS-CoV-2, RNA, NAAT NEGATIVE (NEGATIVE) Administered Medications Heparin Sodium (Porcine) (Heparin Sod 5,000 Unit/0.5 Ml Vial) 5,000 units SQ Q12 BERE Stop: 05/07/22 08:59 Last Admin: 04/07/22 08:50 Dose: 5,000 units Documented By: KDT Co-signed By: NBR Sodium Bicarbonate 100 meq/ (Dextrose) 1,100 mls @ 100 mls/hr IV .Q11H BERE Stop: 05/06/22 12:14 Last Admin: 04/06/22 22:54 Dose: 100 mls/hr Documented By: Infusion: 04/06/22 22:54 Dose: 100 mls/hr Documented By: Admin: 04/06/22 13:01 Dose: 100 mls/hr Documented By: VARGAS Famotidine 20 mg/ Syringe 5 mls @ 2.5 mls/min IV DAILY BERE Stop: 05/07/22 08:59 Last Admin: 04/07/22 09:23 Dose: 2.5 mls/min Documented By: PARTHA Co-signed By: NBR Discontinued Medications Dextrose (Dextrose 50% 50 Ml Syringe) Confirm Administered Dose 50 ml IV .STK- MED ONE Stop: 04/06/22 08:44 Last Admin: 04/06/22 08:48 Dose: 50 ml Documented By: YOLANDA Dextrose (Dextrose 50% 50 Ml Syringe) 50 ml IV NOW STA Stop: 04/06/22 08:45 Last Admin: 04/06/22 08:48 Dose: Not Given Documented By: YOLANDA Famotidine (Famotidine 20mg/5ml Iv Push) 20 mg IV ONE STA Stop: 04/06/22 13:13 Last Admin: 04/06/22 13:44 Dose: 20 mg Documented By: VARGAS Sodium Chloride (Nss 1000ml) 1,000 mls @ 999 mls/hr IV .Q1H1M ONE Stop: 04/06/22 09:44 Last Infusion: 04/06/22 09:48 Dose: 0 mls/hr Documented By: Admin: 04/06/22 08:48 Dose: 999 mls/hr Documented By: YOLANDA Sodium Chloride (1/2 Nss) 500 mls @ 999 mls/hr IV .Q31M BERE Stop: 04/06/22 12:45 Last Infusion: 04/06/22 14:09 Dose: 0 mls/hr Documented By: Admin: 04/06/22 13:09 Dose: 999 mls/hr Documented By: VARGAS Insulin Aspart (Insulin Aspart Per Unit) 0 units SC Q6H [facility] Stop: 05/06/22 12:59 Last Admin: 04/07/22 06:36 Dose: Not Given Documented By: Admin: 04/07/22 00:11 Dose: Not Given Documented By: Admin: 04/06/22 18:31 Dose: Not Given Documented By: Admin: 04/06/22 14:04 Dose: Not Given Documented By: VARGAS Co-signed By: BETH Polyethylene Glycol (Polyethylene (Miralax) 17 Gm Pack) 17 gm PO ONE STA Stop: 04/06/22 13:24 Last Admin: 04/06/22 13:45 Dose: 17 gm Documented By: VARGAS Sterile Water (Tube Feeding Water Flush) 200 ml GT Q4H [facility] Stop: 05/06/22 15:14 Last Admin: 04/06/22 19:45 Dose: 200 ml Documented By: Admin: 04/06/22 16:29 Dose: 200 ml Documented By: LAVERNE Discharge Plan Visit Data Chief Complaint: Hypoglycemia ED Provider: Evaristo Monson Discharge Problem: Acute metabolic encephalopathy due to hypoglycemia, Acute dehydration Patient Disposition: Admitted As Inpatient Discharge Instructions Interventions: ED Discharge Assessment Last Done: 04/06/22 14:44
[2022-04-06 08:58] LABS: Eosinophils # (auto) 0.04 K/uL (0-0.50); Eosinophils % (auto) 0.8 %; Hemoglobin 10.9 g/dl (14.0-18.0); Immature Granulocytes # (auto) 0.01 K/uL (0.01-0.20); Immature Granulocytes % (auto) 0.2 %; Lymphocytes # (auto) 0.34 K/uL (1.2-3.4); Lymphocytes % (auto) 6.7 %; Mean Corpuscular Hemoglobin 34.5 pg (25.0-34.0); Mean Corpuscular Volume 104.4 fL (80.0-100.0); Mean Platelet Volume 10.6 fL (9.4-12.4); Monocytes # (auto) 0.16 K/uL (0.11-0.59); Monocytes % (auto) 3.1 %; Neutrophils # (auto) 4.56 K/uL (1.40-6.50); Neutrophils % (auto) 89.2 %; Platelet Count 119 K/uL (130-400); RDW Coefficient of Variation 15.9 % (11.5-14.5); RDW Standard Deviation 60.9 fL (36.4-46.3); Red Blood Count 3.16 M/uL (4.70-6.10); White Blood Count 5.11 K/ul (4.8-10.8)
--- NOTE | 2022-04-06 09:02 | XRay Report ---
XR chest 1V portable CLINICAL HISTORY: Altered mental status. COMPARISON STUDY: Chest radiograph November 07, [address] January 28, 2022. FINDINGS: Bilateral shoulder osteoarthritis with elevation of the humeral heads is incidentally noted . There is no pneumothorax or pleural effusion. Cardiomegaly is unchanged. No evidence for pulmonary edema. Innumerable pulmonary nodules indicating a previous granulomatous process. There is no consoli dation to suggest pneumonia. IMPRESSION: No change in appearance of the chest. No acute findings. ACT 112: Negative or not required by law. Electronically signed by: Den Lanza M.D. 04/06/2022 9:01 AM
--- NOTE | 2022-04-06 09:27 | CT Scan Report ---
CT OF THE HEAD WITHOUT CONTRAST CLINICAL HISTORY: Fall. Altered mental status. COMPARISON STUDY: No previous studies for comparison. CT DOSE: 844.62 mGy.cm TECHNIQUE: Helical axial images of the head were obtained without IV contrast. Automated exposure con trol was utilized for the study. A dose lowering technique was utilized adhering to the principles o f ALARA. FINDINGS: This study is mildly compromised by motion artifact. Atrophy and presumed small vessel dise ase is noted. No acute intracranial hemorrhage, midline shift or mass effect is present. The ventricu lar system is unremarkable. The basal cisterns are patent. No extra-axial collections are present. Th ere are no findings to suggest acute dural sinus thrombosis or acute territorial infarct. No signific ant calvarial abnormalities are present. Visualized portions of the sinuses and mastoid air cells are clear. IMPRESSION: 1. No acute intracranial findings. 2. No acute calvarial fracture. ACT 112: Negative or not required by law. Electronically signed by: Den Lanza M.D. 04/06/2022 9:25 AM
[2022-04-06 10:04] LABS: Appearance Urine Clear (Clear); Bacteria Urine Automated 2+ (Negative); Bilirubin Urine Negative (Negative); Blood Urine Trace (Negative); Color Urine Yellow; Glucose Urine UA Negative (Negative); Ketones Urine Negative (Negative); Leukocyte Esterase Urine Negative (Negative); Nitrite Urine Negative (Negative); Protein Urine 1+ (Negative); Specific Gravity Urine 1.012 (1.000-1.030); Urobilinogen Urine Negative (Negative); pH Urine 6.5 (4.5-7.5)
[2022-04-06 10:13] LABS: Troponin I High Sensitivity 39.9 pg/ml (0-20)
[2022-04-06 11:03] LABS: RBC Urine Automated 0-4 /hpf (0-4)
[2022-04-06 11:23] LABS: iSTAT Blood Urea Nitrogen > 140 mg/dl (7-18); iSTAT Carbon Dioxide 12 mmol/L (24-31); iSTAT Chloride 127 mmol/L (101-112); iSTAT Creatinine 2.6 mg/dl (0.6-1.3); iSTAT Glucose 248 mg/dl (70-99); iSTAT Hematocrit 30 % (42-52); iSTAT Hemoglobin 10.2 g/dl (14.0-18.0); iSTAT Ionized Calcium 1.44 mmol/l (1.12-1.32); iSTAT Potassium 5.3 mmol/L (3.3-5.0); iSTAT Sodium 146 mmol/L (135-144)
[2022-04-06 11:57] LABS: Base Excess VBG -17.6 mEq/L; HCO3 VBG 10 mmol/L; Oxygen Saturation VBG 63.3 %; PCO2 VBG 27 mmHg (38-50); PO2 VBG 32 mmHg; pH VBG 7.16 (7.36-7.41)
[2022-04-06] MEDS ORDERED: STAT IV STA (12:06)
[2022-04-06] MEDS ORDERED: SODIUM CHLORIDE 0.45 % 500 ML IV SCH (12:15)
[2022-04-06 12:16] LABS: Bilirubin,Total 0.3 mg/dl (0.2-1.0); Creatinine Clr Calc Pharmacy 18.7 ml/min; Magnesium 2.3 mg/dl (1.7-2.4)
[2022-04-06] MEDS ORDERED: CARBOHYDRATES FOR HYPOGLYCEMIA PO PRN (12:20)
[2022-04-06] MEDS ORDERED: DEXTROSE 50% 50 ML SYRINGE IV PRN (12:20)
[2022-04-06] MEDS ORDERED: GLUCOSE 10 TAB/TUBE PO PRN (12:20)
[2022-04-06] MEDS ORDERED: GLUCAGON FOR INJ 1 MG VIAL SQ PRN (12:20)
[2022-04-06] MEDS ORDERED: GLUCOSE 40% GEL 15 GM TUBE PO PRN (12:20)
[2022-04-06] MEDS: SODIUM BICARBONATE 8.4% 100 MEQ in DEXTROSE 5% 1,000 ML IV SCH ×2 (13:01→22:54)
--- NOTE | 2022-04-06 13:02 | CT Scan Report ---
CT OF THE CHEST WITHOUT IV CONTRAST CLINICAL HISTORY: AMS hx of cancer, difficulty swallowing COMPARISON STUDY: Chest CT January 28, 2022. Chest radiograph performed earlier today. CT DOSE: 1050.79 mGy.cm TECHNIQUE: Axial images of the chest were obtained without IV contrast. Images were reviewed in the axial, sagittal, and coronal planes. IV contrast was not administered for this examination. Automat ed exposure control was utilized for the study. A dose lowering technique was utilized adhering to t he principles of ALARA. FINDINGS: No enlarged axillary, mediastinal or hilar lymph nodes are present. A water attenuation po sterior mediastinal 3.5 cm lesion, adjacent to the mid esophagus and aorta is unchanged since initial chest CT of April 09, 2010. This favors a duplication cyst. Mild cardiomegaly and extensive dhillon ry artery calcification is present. There is no pericardial effusion. There is no pneumothorax. Trace right pleural fluid is present. Innumerable calcified nodules within the lungs are again noted. Thes e remain unchanged. No new nodules are present. Subpleural opacities represent atelectasis. No consol idation to suggest pneumonia. Abdomen and pelvis CT will be reported separately. No acute fractures w ithin the bony thorax are present. There is mild paraseptal emphysema. No change in appearance of the chest since CT of January 28, 2022. There are degenerative changes of both shoulders with elevation of the humeral heads. IMPRESSION: No acute findings within the chest. No change since chest CT of January 28, 2022. ACT 112: Negative or not required by law. Electronically signed by: Den Lanza M.D. 04/06/2022 12:59 PM
--- NOTE | 2022-04-06 13:07 | History & Physical Report ---
Date of Service April 06, 2022 Assessment & Plan (1) AMS (altered mental status): Plan: -Admit to the pcu on tele -At this time the patient is currently afebrile, hemodynamically stable, and stable on RA -At this time the patient's acute confusion/AMS is likely multifactorial including hypoglycemic, acute dehydration, and acute renal failure -CT of the head is negative, no focal defect on neuro exam, no signs of infection at this time -EMS noted the patient to be hypoglycemic in the 30's, he is still somewhat confused with a stable BSG at this time -The patient has had a poor oral intake and is very dehydrated on exam -The patient had received approximately 500 mL NSS ordered by the ED, will stop NSS and finish with 500 mL 1/2 NSS -Will start 100 meq of sodium bicarb in D5W after his bolus due to his dehydration, hypernatremia, and acidosis -Lactate is in process -Patient's states that he has been choking on solids and pills for the past 2 months, will order bedside dysphagia screen, if he does not pass will place an NG tube and add free water flushes and consult speech -Will repeat CMP, mag, phos, in 3 hours for further assessment -Monitor on tele/pulse oximetry, bedrest, fall precautions, aspiration precautions -AM CBC, CMP, Mag, Phos, PT/INR -Will start with BL SCDs today for DVT PPX, will start 5000 units SQ heparin q12h tomorrow when he is more stable -PT/OT consults ordered (2) Acute renal failure: Plan: -Cr today is 2.47, baseline appears between 1.3-1.5 -Likely due to his severe dehydration and continue his lisinopril -Will continue with IV hydration as described in AMS, starting sodium bicarb in D5W -Will follow repeat labs in 3 hours and make adjustments as needed -Patient noted to be hypernatremic at 146, potassium at 4.5, chloride at 127, ionized calcium at 1.44, will monitor on repeat labs (3) Metabolic acidosis with normal anion gap and bicarbonate losses: Plan: -See acute renal failure (4) Elevated troponin: Plan: -Initial high sensitivity trop elevated at 39.9, patient denies chest pain, no acute ST segment or T-wave changes on ECG -Liekly due to his acute illness, TRAVIS, and demand -Will repeat another trop now and monitor on tele (5) Difficulty swallowing: Plan: -Noted by his over the past 2 months -Patient has history of multiple prior malignancies -Will obtain CT of the chest/abd/pelvis WO con for further eval -Dysphagia screen ordered, will consult speech if he fails (6) Hypoglycemia: Plan: -Likely due to his poor oral intake, continue used of antihyperglycemics, weight loss and acute renal failure -Glucose is currently stable, hold all home antihyperglycemic agents at this time -Monitor BSG q6h while NPO, goal for now will be 110-160 -Will start a correction factor of 50 q6h for now -Adjust regimen as needed (7) Paroxysmal atrial fibrillation: Plan: -Stable -Will hold Eliquis for now with his renal failure -HR is currently controlled, continue to monitor on tele (8) Dyslipidemia: Plan: -Hold statin while NPO (9) Hypertension: Plan: -Stable, hold lisinopril while NPO and with acute renal failure (10) MGUS (monoclonal gammopathy of unknown significance): Plan: -Stable -Follows with heme/onc (11) Anemia: Plan: -Stable -MCV is elevated, will obtain B12 and folate levels (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 Graves at the time of the admission History of Present Illness Chief Complaint: AMS, hypoglycemia Primary Care Provider: CALLUM Ragsdale Raphael is an 86 year old male with a PMH significant for afib on eliquis, HTN, stage III CKD, dyslipidemia, adenocarcinoma of the colon S/P open subtotal colectomy in 2020 (follows with Heme/onc and currently on surveillance), DM II, anemia and MGUS who presented to the [facility] ED on 04/06/22 with complaints of AMS and hypoglycemia. Per the ED staff, the patients woke up this morning and found the patient to not be acting himself and was unable to get him out of bed so she called 911. EMS found him to be hypoglycemic in the 30s, they gave him multiple doses of dextrose but his mental status did not improve. In the ED the patient was found to be afebrile, mildly hypotensive at 94/53, and stable on RA. Labs were remarkable for a WBC WNL, stable Hgb at 10.9, MCV of 104, thrombocytopenia of 119, neutrophil count of 4.56, cr of 2.47 (baseline appears to 1.3-1.5), be glucose of 124, sodium of 146, potassium of 4.5, chloride of 127, AG of 8 with a bicarb of 11, ionized calcium of 1.44, LFTs WNL, initial high sensitivity trop of 39.9, procal of 0.13, UA not suggestive of UTI. CT of the head was read as 1. No acute intracranial findings. 2. No acute calvarial fracture.. Chest xray was read as No change in appearance of the chest. No acute findings.. At the time of the exam the patient was lying in bed in no acute distress with his sitting bedside. History was obtained from his due to his current mental status. She states that they patient has been having issues with swallowing/choking over the past 2 months. He has had poor oral intake of solids but has been able to drink liquids without issue. She states that the patient has been following with the wound care clinic for multiple wounds on the BL LE, right hip, and the buttocks. She mentions that the patient was started on an antibiotic 2 days ago sent in from the wound care team, she is not sure what antibiotic it was. The patient has still been taking his antihyperglycemic medications as prescribed despite his poor oral intake. Yesterday he sustained a fall when he stood up from a chair. His states that he landed on his buttocks and did not hit his head. Per his , the patient's baseline mental status is alert and oriented to person, place, close contacts, and normally the month/year. This am upon waking his noticed that the patient was not as alert as he normally was. She attempted to wake him but he seemed very let hargic. He has a urostomy with calderon at baseline due to his previous partial colectomy. He does not have an ostomy and his last bowel movement was approximately 2-3 days ago. His denies any recent hematuria, bloody bowel movements, or melena. We discussed code status at length, the patient is a DNR/DNI and his and daughter would make decisions for him if he could not make them himself. His confirms that he did not have any of his medications prior to coming to the ED today. Please refer to Dr. Graves's attetsation for any changes to the treatment plan. Allergies Allergy/AdvReac Type Severity Reaction Status Date / Time No Known Drug Allergies Allergy Verified 04/01/22 11:17 Home Medications Medication Instructions Recorded Confirmed Type coenzyme Q10 100 mg capsule (Co 100 mg PO QAM #30 caps 10/19/18 04/06/22 History Q-10) [id number] 5 mg-zeaxanth 1 cap PO QAM 10/19/18 04/06/22 History 1 mg-bilberry 7.5 mg-herbal capsule (AirXpanders Health Formula) fexofenadine 180 mg tablet 180 mg PO DAILY PRN Allergy 09/18/20 04/06/22 History (Ally Allergy) Symptoms acetaminophen 500 mg capsule 500 mg PO Q6H PRN Pain 12/10/20 04/06/22 History ascorbate calcium (vitamin C) 500 500 mg PO DAILY 12/10/20 04/06/22 History mg tablet cyanocobalamin (vitamin B-12) 100 100 mcg PO QAM 12/10/20 04/06/22 History mcg tablet (Vitamin B-12) famotidine 20 mg tablet 20 mg PO QAM #90 tabs 11/18/21 04/06/22 Rx metformin 500 mg tablet,extended 500 mg PO BID #180 tabs 12/16/21 04/06/22 Rx release 24 hr lisinopril 10 mg tablet 10 mg PO DAILY #90 tabs 01/28/22 04/06/22 Rx apixaban 2.5 mg tablet (Eliquis) 2.5 mg PO BID #180 tabs 02/13/22 04/06/22 Rx atorvastatin 40 mg tablet (Lipitor) 40 mg PO QAM #90 tabs 03/19/22 04/06/22 Rx glipizide 10 mg tablet, extended 10 mg PO QAM #90 tabs 03/19/22 04/06/22 Rx release 24 hr linagliptin 5 mg tablet (Tradjenta) 5 mg PO DAILY #90 tabs 03/20/22 04/06/22 Rx coffee extract 50 mg-phosphatidyl 1 tab PO HS 04/06/22 04/06/22 History serine 50 mg chewable tablet (Neuriva Original) zinc acetate 50 mg (zinc) capsule 50 mg PO DAILY 04/06/22 04/06/22 History Past Med/Surg History Medical History Allergic rhinitis AMD (age related macular degeneration) Anemia Chronic osteoarthritis Diabetes mellitus with kidney complication Dyslipidemia Hypertension MGUS (monoclonal gammopathy of unknown significance) Osteopenia Peripheral neuropathy Premature ventricular contractions Proteinuria Stage III chronic kidney disease Thrombocytopenia 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) Venous insufficiency Vitamin D deficiency Surgical History H/O colectomy (09/27/20) History of total cystectomy (05/2010) S/P Mohs surgery for basal cell carcinoma (04/2020) Family History Father Myocardial infarction Denies family history of Ovarian cancer Prostate cancer Breast cancer Colorectal cancer Social History Smoking Status: Former smoker Age Started Using Tobacco: 16; Age Quit Using Tobacco: 22; Second Hand Exposure: No; Do You Dip or Chew Tobacco: No; Hx Alcohol Use: Yes Alcohol type: beer Alcohol Intake Frequency: Monthly or Less Hx Substance Use: No Preferred Language: Grenadian Communication Ability: Effective Visual Impairment: No Limitations Hearing Ability: Hard of Hearing Mud Trucker Required: No Beliefs That Will Affect Care: None marital status: Current Living Situation: Spouse current occupational status: retired How many Children do You have: 3 Other Information That Helps Us Care for You: No Feels Safe at Home: Yes Safety Concerns: Feels Safe At This Time Childhood Exposure to Second-Hand Smoke: Yes Diet Comment: regular caffeine: No during the past year weight has: remained stable Dental Care, Regularly: Yes Physical Activity Frequency: Daily Seatbelt Use: always Sunscreen Use: Yes Assistive Devices: Glasses and Walker Review of Systems Review of Systems: Denies current fever, chills, headache, changes in vision, hearing, taste, and smell, chest pain, SOB, cough, abdominal pain, nausea, vomiting, diarrhea, hematemesis, melena, dysuria, hematuria All systems have been reviewed and are otherwise negative. Physical Exam Physical Exam: Physical Exam: General: In no acute distress, stated age, malnourished, ill-appearing HEENT: Normocephalic, atraumatic, no scleral icterus, pupils around round, symmetrical, and reactive to light, Dry mucus membranes, trachea midline, no thyromegaly Chest/Pulm: No respiratory distress, symmetrical chest expansion, clear breath sounds throughout Cardiac: RRR, no murmurs noted Abdomen: Negative for ascites and bruising, Urostomy is located in the RLQ and without signs of infection, currently draining clear/yellow urine, normoactive bowel sounds, soft, non-tender to palpation throughout Musculoskeletal: Symmetrical and without signs of acute trauma, upper and lower extremities with full ROM, no atrophy, spasticity, or flaccidity Extremities: Radial, dorsalis pedis, and posterior tibial pulses are intact and symmetrical, no edema noted in the BL LE's Skin: Patient with multiple chronic wounds on the left lateral ankle, right redman, right hip, and sacrum. All are without signs of acute infections or drainage Neuro: Alert and oriented to person and place only at this time, no focal defects, CN II-XII tested and intact, no tremors noted Psych: No acute distress, calm and cooperative during the exam Results & Data Results & Data ([facility]) Vital Signs (Past 12 Hours) Vital Signs Temp Pulse Pulse Resp BP BP Pulse Ox 04/06/22 11:30 67 21 04/06/22 11:30 101/56 L 04/06/22 11:20 67 17 100 04/06/22 11:10 82 21 04/06/22 11:00 86 20 04/06/22 11:00 103/59 L 04/06/22 10:50 79 20 04/06/22 10:40 81 20 04/06/22 10:30 85 23 04/06/22 10:30 94/53 L 04/06/22 10:20 86 22 04/06/22 10:16 104/55 L 04/06/22 10:16 82 20 04/06/22 10:10 82 15 04/06/22 10:00 87 04/06/22 09:50 83 18 04/06/22 09:40 91 H 13 04/06/22 09:30 79 19 97 04/06/22 09:22 81 20 04/06/22 09:22 107/57 L 04/06/22 09:21 87 23 04/06/22 09:00 87 14 04/06/22 08:55 85 18 04/06/22 10:18 82 16 104/55 L 96 04/06/22 09:22 85 16 107/57 L 95 04/06/22 08:51 36.7 C 87 16 106/58 L 96 O2 Del Method 04/06/22 11:30 04/06/22 11:30 04/06/22 11:20 04/06/22 11:10 04/06/22 11:00 04/06/22 11:00 04/06/22 10:50 04/06/22 10:40 04/06/22 10:30 04/06/22 10:30 04/06/22 10:20 04/06/22 10:16 04/06/22 10:16 04/06/22 10:10 04/06/22 10:00 04/06/22 09:50 04/06/22 09:40 04/06/22 09:30 04/06/22 09:22 04/06/22 09:22 04/06/22 09:21 04/06/22 09:00 04/06/22 08:55 04/06/22 10:18 Room Air 04/06/22 09:22 04/06/22 08:51 Room Air Laboratory Results Abnormal lab results 04/06/22 04/06/22 04/06/22 Range/Units 08:40 08:49 08:49 RBC 3.16 L (4.70-6.10) M/uL Hgb 10.9 L (14.0-18.0) g/dl POC Hgb (14.0-18.0) g/dl Hct 33.0 L (42.0-52.0) % POC Hct (42-52) % MCV 104.4 H (80.0-100.0) fL MCH 34.5 H (25.0-34.0) pg RDW Std Deviation 60.9 H (36.4-46.3) fL RDW Coeff of Tasneem 15.9 H (11.5-14.5) % Plt Count 119 L (130-400) K/uL Lymph # (Auto) 0.34 L (1.2-3.4) K/uL VBG pH (7.36-7.41) VBG pCO2 (38-50) mmHg POC Sodium (135-144) mmol/L Sodium 146 H (136-145) mmol/L POC Potassium (3.3-5.0) mmol/L POC Chloride (101-112) mmol/L Chloride 127 H (98-107) mmol/L Carbon Dioxide 11 L (21-32) mmol/L POC Total CO2 (24-31) mmol/L POC Anion Gap (16-25) mmol/L POC BUN (7-18) mg/dl Creatinine 2.47 H (0.6-1.4) mg/dl POC Creatinine (0.6-1.3) mg/dl POC Glucose 58 L* (70-99) mg/dl POC Glucose (other) (70-99) mg/dl POC Ioniz Calcium Angelika (1.12-1.32) mmol/l Troponin I High Sens 39.9 H (0-20) pg/ml Urine Protein (Negative) Urine Blood (Negative) U Epithel Cells (Auto) (0-5) /lpf Urine Bacteria (Auto) (Negative) 04/06/22 04/06/22 04/06/22 Range/Units 09:20 09:45 11:08 RBC (4.70-6.10) M/uL Hgb (14.0-18.0) g/dl POC Hgb 10.2 L (14.0-18.0) g/dl Hct (42.0-52.0) % POC Hct 30 L (42-52) % MCV (80.0-100.0) fL MCH (25.0-34.0) pg RDW Std Deviation (36.4-46.3) fL RDW Coeff of Tasneem (11.5-14.5) % Plt Count (130-400) K/uL Lymph # (Auto) (1.2-3.4) K/uL VBG pH (7.36-7.41) VBG pCO2 (38-50) mmHg POC Sodium 146 H (135-144) mmol/L Sodium (136-145) mmol/L POC Potassium 5.3 H (3.3-5.0) mmol/L POC Chloride 127 H (101-112) mmol/L Chloride (98-107) mmol/L Carbon Dioxide (21-32) mmol/L POC Total CO2 12 L (24-31) mmol/L POC Anion Gap 13.0 L (16-25) mmol/L POC BUN > 140 H* (7-18) mg/dl Creatinine (0.6-1.4) mg/dl POC Creatinine 2.6 H (0.6-1.3) mg/dl POC Glucose 124 H (70-99) mg/dl POC Glucose (other) 248 H (70-99) mg/dl POC Ioniz Calcium Angelika 1.44 H (1.12-1.32) mmol/l Troponin I High Sens (0-20) pg/ml Urine Protein 1+ H (Negative) Urine Blood Trace H (Negative) U Epithel Cells (Auto) 10-20 H (0-5) /lpf Urine Bacteria (Auto) 2+ H (Negative) 04/06/22 Range/Units 11:45 RBC (4.70-6.10) M/uL Hgb (14.0-18.0) g/dl POC Hgb (14.0-18.0) g/dl Hct (42.0-52.0) % POC Hct (42-52) % MCV (80.0-100.0) fL MCH (25.0-34.0) pg RDW Std Deviation (36.4-46.3) fL RDW Coeff of Tasneem (11.5-14.5) % Plt Count (130-400) K/uL Lymph # (Auto) (1.2-3.4) K/uL VBG pH 7.16 L (7.36-7.41) VBG pCO2 27 L (38-50) mmHg POC Sodium (135-144) mmol/L Sodium (136-145) mmol/L POC Potassium (3.3-5.0) mmol/L POC Chloride (101-112) mmol/L Chloride (98-107) mmol/L Carbon Dioxide (21-32) mmol/L POC Total CO2 (24-31) mmol/L POC Anion Gap (16-25) mmol/L POC BUN (7-18) mg/dl Creatinine (0.6-1.4) mg/dl POC Creatinine (0.6-1.3) mg/dl POC Glucose (70-99) mg/dl POC Glucose (other) (70-99) mg/dl POC Ioniz Calcium Angelika (1.12-1.32) mmol/l Troponin I High Sens (0-20) pg/ml Urine Protein (Negative) Urine Blood (Negative) U Epithel Cells (Auto) (0-5) /lpf Urine Bacteria (Auto) (Negative) Diagnostic Findings Head CT 04/06/22 08:44 CT OF THE HEAD WITHOUT CONTRAST CLINICAL HISTORY: Fall. Altered mental status. COMPARISON STUDY: No previous studies for comparison. CT DOSE: 844.62 mGy.cm TECHNIQUE: Helical axial images of the head were obtained without IV contrast. Automated exposure control was utilized for the study. A dose lowering technique was utilized adhering to the principles of ALARA. FINDINGS: This study is mildly compromised by motion artifact. Atrophy and presumed small vessel disease is noted. No acute intracranial hemorrhage, midline shift or mass effect is present. The ventricular system is unremarkable. The basal cisterns are patent. No extra-axial collections are present. There are no findings to suggest acute dural sinus thrombosis or acute territorial infarct. No significant calvarial abnormalities are present. Visualized portions of the sinuses and mastoid air cells are clear. IMPRESSION: 1. No acute intracranial findings. 2. No acute calvarial fracture. ACT 112: Negative or not required by law. Electronically signed by: Den Lanza M.D. 04/06/2022 9:25 AM Chest X-Ray 04/06/22 08:45 XR chest 1V portable CLINICAL HISTORY: Altered mental status. COMPARISON STUDY: Chest radiograph November 07, [address] January 28, 2022. FINDINGS: Bilateral shoulder osteoarthritis with elevation of the humeral heads is incidentally noted. There is no pneumothorax or pleural effusion. Cardiomegaly is unchanged. No evidence for pulmonary edema. Innumerable pulmonary nodules indicating a previous granulomatous process. There is no consolidation to suggest pneumonia. IMPRESSION: No change in appearance of the chest. No acute findings. ACT 112: Negative or not required by law. Electronically signed by: Den Lanza M.D. 04/06/2022 9:01 AM ECG Additional Comments: Atrial fibrillation with premature ventricular or aberrantly conducted complexes Low voltage QRS Junctional ST depression, probably normal Abnormal ECG When compared with ECG of 18-SEP-2020 09:38, Atrial fibrillation has replaced Sinus rhythm Code Status & VTE Plan Code Status DNR/DNI VTE Prophylaxis Plan VTE Prophylaxis will be ordered: Yes Supervising Physician Co-Signing Physician Notes I personally saw and examined the patient. I verified all macias points and agree with Olman Santos PA-C with the following exceptions and/or additions: 86-year-old male presents to the ER with altered mental status, lethargy, coughing after eating. Found to be hypoglycemic by EMS. O/E Alert, orientated to person only, very dry mucus membranes, HS1+2, no murmurs, RRR, Chest CTAB, Abdo SNT, no CVA tenderness A/P Metabolic encephalopathy - suspect due to metabolic acidosis and uremia now hypoglycemia corrected. CT CAP taken due to history of cancer and new coughing/choking after eating. If not returning to his baseline after correction of thi Hypoglycemia - stop all diabetic medications. Not eating or drinking as much as normal Coughing after eating - suspect due to encephalopathy as above. SLT consult. Non-anion gap metabolic acidosis - suspect this is due to renal tubular acidosis given lack of alternative explanations and TRAVIS. Sodium bicarb + D5 @ 100 ml/hr with serial labs. TRAVIS - Half normal saline bolus given for volume expansion and normal saline valencia justine stopped with approx 200ml left in bag. IV maintenance fluids as above. Additionally NG tube placed for free water flushes 200ml q4h to aim for 1.5x maintenance fluids Atrial fibrillation - given current TRAVIS will d/c Eliquis and start on VTE prophylaxis tomorrow morning. Consider restarting Eliquis as his renal function improves PG Care Time/CCT Total # of Minutes Spent Total Time Spent with Patient: Total time spent is greater than 50% in coordination of care (as documented) at patient's floor/unit and/or counseling patient: Coding [place] [address] INT INP/OBS CARE 3/75MIN Patient Type Established Medical Decision Making High Complexity Diagnoses AMS (altered mental status) R41.82 Acute renal failure N17.9 Metabolic acidosis with normal anion gap and bicarbonate losses E87.20 Elevated troponin R77.8 Difficulty swallowing R13.10 Hypoglycemia E16.2 Paroxysmal atrial fibrillation I48.0 Dyslipidemia E78.5 Hypertension I10 MGUS (monoclonal gammopathy of unknown significance) D47.2 Anemia D64.9 Anemia type: unspecified type Diabetes mellitus with kidney complication E11.29 Metabolic encephalopathy G93.41 Renal tubular acidosis N25.89 (1) Anemia Anemia type: unspecified type Qualified Code(s): D64.9 - Anemia, unspecified
--- NOTE | 2022-04-06 13:09 | CT Scan Report ---
CT OF THE ABDOMEN AND PELVIS WITHOUT CONTRAST CLINICAL HISTORY: Altered mental status hx of cancer COMPARISON STUDY: CT of the abdomen and pelvis January 28, 2022. TECHNIQUE: Axial images of the abdomen and pelvis were obtained without IV contrast. Images were revi ewed in the axial, sagittal, and coronal planes. Automated exposure control was utilized for the keiko dy. A dose lowering technique was utilized adhering to the principles of ALARA. FINDINGS: No pneumatosis, free air or portal venous gas is present. Evaluation of the abdomen and pel vis is suboptimal as unenhanced exam. Unenhanced images of the liver, spleen, adrenal glands, kidneys and pancreas are unchanged. There is no biliary or pancreatic ductal dilatation. Moderate left and m ild right renal cortical thinning is noted. There is no hydronephrosis. There is no evidence for a valencia wel obstruction. A moderate amount stool is noted within the distal colon and rectum. Colonic diverti culosis is present. There is no evidence for acute diverticulitis. There are postoperative findings c onsistent with right hemicolectomy, cystectomy, prostatectomy and right lower quadrant ileal conduit and urostomy. There is no lymphadenopathy. No fluid collection is present. There is no ascites. There are no acute fractures within the visualized skeletal structures. IMPRESSION: 1. No acute process within the abdomen or pelvis on unenhanced exam. 2. No significant change since CT of January 28, 2022. Stable postoperative findings. 3. Moderate amount of stool within the colon and rectum. 3. Colonic diverticulosis. No evidence for acute diverticulitis. ACT 112: Negative or not required by law. Electronically signed by: Den Lanza M.D. 04/06/2022 1:07 PM
[2022-04-06] MEDS ORDERED: FAMOTIDINE 20MG/5ML IV PUSH IV STA (13:12)
[2022-04-06] MEDS ORDERED: POLYETHYLENE (MIRALAX) 17 GM PACK PO STA (13:23)
[2022-04-06] MEDS: INSULIN ASPART PER UNIT SC SCH ×2 (14:04→18:31)
[2022-04-06 14:19] LABS: Troponin I High Sensitivity 36.8 pg/ml (0-20)
[2022-04-06 14:48] LABS: Vitamin B12 985 pg/ml (180-914)
[2022-04-06 14:51] LABS: Bilirubin Direct 0.1 mg/dl (0-0.2); Calcium 9.5 mg/dl (8.5-10.1); Potassium 4.4 mmol/L (3.5-5.1)
--- NOTE | 2022-04-06 14:55 | XRay Report ---
XR chest 1V portable CLINICAL HISTORY: NG Tube Check COMPARISON STUDY: Chest radiograph and chest CT performed earlier today FINDINGS: Innumerable calcified pulmonary nodules are noted. There is no pneumothorax or pleural effu tejinder. Tip of nasogastric tube projects over the distal body of the stomach. Cardiomegaly is noted. No evidence for pulmonary edema. IMPRESSION: Tip of nasogastric tube projects over the distal body of the stomach. ACT 112: Negative or not required by law. Electronically signed by: Den Lanza M.D. 04/06/2022 2:53 PM
[2022-04-06 14:59] LABS: Est GFR (African American) 26.9 ml/min; Est GFR (Non-African American) 23.2 ml/min; Total Protein 6.7 gm/dl (6.0-8.3)
[2022-04-06 15:30] LABS: BUN Creatinine Ratio 60.1 (10-20)
[2022-04-06 15:48] LABS: Base Excess VBG -16.6 mEq/L; HCO3 VBG 11 mmol/L; Oxygen Saturation VBG < 60.0 %; PCO2 VBG 29 mmHg (38-50); PO2 VBG 24 mmHg; pH VBG 7.17 (7.36-7.41)
[2022-04-06 16:03] LABS: Albumin Level 3.9 gm/dl (3.4-5.0); Bilirubin,Total 0.3 mg/dl (0.2-1.0); Calcium 9.2 mg/dl (8.5-10.1); Magnesium 2.3 mg/dl (1.7-2.4); Potassium 3.9 mmol/L (3.5-5.1)
[2022-04-06 16:17] LABS: Albumin Globulin Ratio 1.4 (0.9-2); Creatinine Clr Calc Pharmacy 22.7 ml/min; Est GFR (African American) 30.1 ml/min; Globulin 2.7 gm/dl (2.5-4.0); Phosphorus 3.3 mg/dl (2.5-4.9); Total Protein 6.6 gm/dl (6.0-8.3)
[2022-04-06] MEDS: TUBE FEEDING WATER FLUSH GT SCH ×2 (16:29→19:45)
[2022-04-06] MEDS ORDERED: INSULIN ASPART PER UNIT SC SCH (16:30)
[2022-04-06 16:54] LABS: BUN Creatinine Ratio 61.5 (10-20)
[2022-04-06 20:05] LABS: HCO3 VBG 13 mmol/L; Oxygen Saturation VBG < 60.0 %; PCO2 VBG 28 mmHg (38-50); PO2 VBG 27 mmHg; pH VBG 7.28 (7.36-7.41)
[2022-04-06 20:26] LABS: Albumin Level 3.6 gm/dl (3.4-5.0); Bilirubin,Total 0.3 mg/dl (0.2-1.0); Calcium 8.8 mg/dl (8.5-10.1); Magnesium 2.1 mg/dl (1.7-2.4); Potassium 3.6 mmol/L (3.5-5.1)
[2022-04-06 20:32] LABS: Albumin Globulin Ratio 1.5 (0.9-2); BUN Creatinine Ratio 60.1 (10-20); Creatinine Clr Calc Pharmacy 24.1 ml/min; Est GFR (African American) 32.4 ml/min; Globulin 2.4 gm/dl (2.5-4.0)
[2022-04-07] MEDS: INSULIN ASPART PER UNIT SC SCH ×5 (00:11→21:22)
[2022-04-07 07:34] LABS: INR 1.1 (0.9-1.1); Prothrombin Time 11.2 Seconds (9.0-12.0)
[2022-04-07 07:49] LABS: Hematocrit (blood only) 28.3 % (42.0-52.0); Hemoglobin 9.7 g/dl (14.0-18.0); Mean Corpuscular Hgb Conc 34.3 g/dL (32.0-36.0); Mean Corpuscular Volume 99.3 fL (80.0-100.0); Mean Platelet Volume 10.7 fL (9.4-12.4); Platelet Count 106 K/uL (130-400); RDW Coefficient of Variation 15.5 % (11.5-14.5); RDW Standard Deviation 55.6 fL (36.4-46.3); Red Blood Count 2.85 M/uL (4.70-6.10)
--- NOTE | 2022-04-07 08:00 | Hospitalist Progress Note ---
Date of Service April 07, 2022 Assessment & Plan (1) AMS (altered mental status): Plan: -Admitted to PCU on tele -At this time the patient is currently afebrile, 98% on RA and hemodynamically stable -Patient's acute confusion/AMS was likely multifactorial including hypoglycemic, acute dehydration, and acute renal failure -CT of the head was negative, no focal defect on neuro exam, no signs of infection at this time -EMS noted the patient to be hypoglycemic in the 30's, BS elevated and on sliding scale -The patient has had a poor oral intake and is very dehydrated on admission -The patient had received approximately 500 mL NSS ordered by the ED, will stop NSS and finish with 500 mL 1/2 NSS -S/P 100 meq of sodium bicarb in D5W after his bolus due to his dehydration, hypernatremia, and acidosis -Lactate is in process -Patient's states that he has been choking on solids and pills for the past 2 months, initially had NGT, and then passed swallow eval -To have video swallow testing -Continue minced and moist diet -Will repeat AM labs -Continue to monitor on tele/pulse oximetry, bedrest, fall precautions, aspiration precautions -Continue 5000 units SQ heparin q12h -PT/OT consults ordered -Likely patient will need SNF rehab, unless he is able to improve over the next day or so -Discussion with patient's family regarding possible SNF rehab if needed (patient did have a short stay at [facility] last year) (2) Acute renal failure: Plan: -Cr today is 2.03 (2.43 on admiss), baseline appears between 1.3-1.5 -Likely due to his severe dehydration and continuing lisinopril -Currently on Sodium bicarbonate in D5W 100/hr -Speech recommended minced moist diet -Repeat AM labs (3) Metabolic acidosis with normal anion gap and bicarbonate losses: Plan: -See acute renal failure (4) Elevated troponin: Plan: -Initial high sensitivity trop elevated at 39.9, currently decreased to 36.8, patient continues to deny any chest pain, no acute ST segment or T-wave changes on ECG -Likely due to his acute illness, TRAVIS, and demand -Continue to monitor on tele (5) Difficulty swallowing: Plan: -Noted by his over the past 2 months -Patient has history of multiple prior malignancies -CT of the chest/abd/pelvis with no acute changes and no change when compared to previous. -Speech cleared for minced moist diet and will await video swallow study -Continue aspiration precautions (6) Hypoglycemia: Plan: -Likely due to his poor oral intake, continue used of antihyperglycemics, weight loss and acute renal failure -Glucose is currently stable, hold all home antihyperglycemic agents at this time -Monitor BSG -insulin sliding scale -Continue correction factor of 50 q6h for now (until can evaluate what patient is able to eat) -Adjust regimen as needed (7) Paroxysmal atrial fibrillation: Plan: -Stable -Will hold Eliquis for now with his renal failure -HR is currently controlled, continue to monitor on tele -Heparin 5000 units SQ q 12H (8) Dyslipidemia: Plan: -Hold statin for now (9) Hypertension: Plan: -Stable BP - 114/70 -Continue to hold lisinopril with acute renal failure (10) MGUS (monoclonal gammopathy of unknown significance): Plan: -Stable -Follows with heme/onc (11) Anemia: Plan: -Stable -MCV is elevated -B12 and folate levels both normal (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 Per patient's daughter Paz, her father lives at home with her mother (his ) and has had declining health and progressive weakness. He has had multiple fa lls and a recent fall with no head injury or LOC. Patient was noted to have increased lethargy and his called [facility] yesterday and he was found to have hypoglycemia. Currently this afternoon patient has no complaints other than he would like to go home now. Review of Systems Constitutional: + fatigue, + weakness and + anorexia; no fever and no chills Respiratory: no cough, no chest congestion, no change in sputum and no dyspnea per patient's he jules had some coughing with eating and sometimes with taking his po medications Cardiovascular: no chest pain, no dyspnea, no dyspnea at rest and no syncope Gastrointestinal: + dysphagia and + constipation; no abdominal pain, no nausea, no vomiting, no pain with swallowing and no blood in stools has urostomy Integumentary: has pressure ulcers right knee, left lateral ankle and right hip - follows with wound clinic Neurologic: + gait abnormality, + unsteadiness, + falls and + generalized weakness Psychiatric: + change in appetite and + irritability; no hallucinations and no auditory hallucinations Physical Exam Constitutional: + ill appearing, + cachectic, + frail appearing and + lethargic Neck: trachea midline, no thyromegaly Respiratory: + cough and able to speak in complete sentences; no respiratory distress and does not use accessory muscles Auscultation: + diminished lung sounds Cardiovascular: Rate/Rhythm: + irregularly irregular Heart Sounds: normal S1 and normal S2 Extremities: no calf tenderness and no edema Gastrointestinal (Abdomen): urostomy left lower abdomen, old healed surgical scars, +bowel sounds, soft and nontender Skin: see wound care pictures ulcer right knee, left lateral ankle Neurologic: PERRL, EOMI, accommodation nl, no face palsy, no dysarthria moves all extremities and awake Psychiatric: Orientation: alert, oriented to person and oriented to place Mood: + irritable mood Results & Data Results & Data ([facility]) Vital Signs (Past 12 Hours) Vital Signs Temp Pulse Pulse Resp BP Pulse Ox O2 Del Method 04/07/22 07:07 79 04/07/22 03:30 36.6 C 68 17 127/65 98 Room Air 04/06/22 22:49 36.5 C 91 H 18 125/69 97 Room Air Laboratory Results Abnormal lab results 04/06/22 04/06/22 04/06/22 Range/Units 15:27 19:49 19:49 WBC (4.8-10.8) K/ul RBC (4.70-6.10) M/uL Hgb (14.0-18.0) g/dl Hct (42.0-52.0) % RDW Std Deviation (36.4-46.3) fL RDW Coeff of Tasneem (11.5-14.5) % Plt Count (130-400) K/uL VBG pH 7.28 L (7.36-7.41) VBG pCO2 28 L (38-50) mmHg Sodium 146 H (136-145) mmol/L Potassium (3.5-5.1) mmol/L Chloride 127 H (98-107) mmol/L Carbon Dioxide 13 L (21-32) mmol/L BUN 136 H 125 H (6-23) mg/dl Creatinine 2.08 H (0.6-1.4) mg/dl BUN/Creatinine Ratio 61.5 H 60.1 H (10-20) Glucose (70-99(Fasting)) mg/dl POC Glucose (70-99) mg/dl Phosphorus (2.5-4.9) mg/dl AST 11 L (13-39) U/L Total Protein (6.0-8.3) gm/dl Globulin 2.4 L (2.5-4.0) gm/dl 04/07/22 04/07/22 04/07/22 Range/Units 00:11 06:25 06:56 WBC (4.8-10.8) K/ul RBC (4.70-6.10) M/uL Hgb (14.0-18.0) g/dl Hct (42.0-52.0) % RDW Std Deviation (36.4-46.3) fL RDW Coeff of Tasneem (11.5-14.5) % Plt Count (130-400) K/uL VBG pH 7.35 L (7.36-7.41) VBG pCO2 (38-50) mmHg Sodium (136-145) mmol/L Potassium (3.5-5.1) mmol/L Chloride (98-107) mmol/L Carbon Dioxide (21-32) mmol/L BUN (6-23) mg/dl Creatinine (0.6-1.4) mg/dl BUN/Creatinine Ratio (10-20) Glucose (70-99(Fasting)) mg/dl POC Glucose 133 H 159 H (70-99) mg/dl Phosphorus (2.5-4.9) mg/dl AST (13-39) U/L Total Protein (6.0-8.3) gm/dl Globulin (2.5-4.0) gm/dl 04/07/22 04/07/22 04/07/22 Range/Units 06:56 06:56 07:24 WBC 4.70 L (4.8-10.8) K/ul RBC 2.85 L (4.70-6.10) M/uL Hgb 9.7 L (14.0-18.0) g/dl Hct 28.3 L (42.0-52.0) % RDW Std Deviation 55.6 H (36.4-46.3) fL RDW Coeff of Tasneem 15.5 H (11.5-14.5) % Plt Count 106 L (130-400) K/uL VBG pH (7.36-7.41) VBG pCO2 (38-50) mmHg Sodium 146 H (136-145) mmol/L Potassium 3.4 L (3.5-5.1) mmol/L Chloride 125 H (98-107) mmol/L Carbon Dioxide 15 L (21-32) mmol/L BUN 110 H (6-23) mg/dl Creatinine 2.03 H (0.6-1.4) mg/dl BUN/Creatinine Ratio 54.2 H (10-20) Glucose 180 H (70-99(Fasting)) mg/dl POC Glucose 174 H (70-99) mg/dl Phosphorus 2.3 L D (2.5-4.9) mg/dl AST 10 L (13-39) U/L Total Protein 5.8 L (6.0-8.3) gm/dl Globulin 2.4 L (2.5-4.0) gm/dl 04/07/22 04/07/22 Range/Units 11:37 16:19 WBC (4.8-10.8) K/ul RBC (4.70-6.10) M/uL Hgb (14.0-18.0) g/dl Hct (42.0-52.0) % RDW Std Deviation (36.4-46.3) fL RDW Coeff of Tasneem (11.5-14.5) % Plt Count (130-400) K/uL VBG pH (7.36-7.41) VBG pCO2 (38-50) mmHg Sodium (136-145) mmol/L Potassium (3.5-5.1) mmol/L Chloride (98-107) mmol/L Carbon Dioxide (21-32) mmol/L BUN (6-23) mg/dl Creatinine (0.6-1.4) mg/dl BUN/Creatinine Ratio (10-20) Glucose (70-99(Fasting)) mg/dl POC Glucose 243 H 192 H (70-99) mg/dl Phosphorus (2.5-4.9) mg/dl AST (13-39) U/L Total Protein (6.0-8.3) gm/dl Globulin (2.5-4.0) gm/dl PG Care Time/CCT Total # of Minutes Spent Total Time Spent with Patient: Total time spent is greater than 50% in coordination of care (as documented) at patient's floor/unit and/or counseling patient: Coding Level of Care Code 19759 SUB INP/OBS CARE 2MIN Diagnoses AMS (altered mental status) R41.82 Acute renal failure N17.9 Metabolic acidosis with normal anion gap and bicarbonate losses E87.20 Elevated troponin R77.8 Difficulty swallowing R13.10 Hypoglycemia E16.2 Paroxysmal atrial fibrillation I48.0 Dyslipidemia E78.5 Hypertension I10 MGUS (monoclonal gammopathy of unknown significance) D47.2 Anemia D64.9 Anemia type: unspecified type Diabetes mellitus with kidney complication E11.29 Metabolic encephalopathy G93.41 (1) Anemia Anemia type: unspecified type Qualified Code(s): D64.9 - Anemia, unspecified
[2022-04-07] MEDS: HEPARIN SOD 5,000 UNIT/0.5 ML VIAL SQ SCH ×2 (08:50→21:25)
[2022-04-07 09:10] LABS: Albumin Globulin Ratio 1.4 (0.9-2); Albumin Level 3.4 gm/dl (3.4-5.0); BUN Creatinine Ratio 54.2 (10-20); Bilirubin,Total 0.4 mg/dl (0.2-1.0); Calcium 8.9 mg/dl (8.5-10.1); Creatinine Clr Calc Pharmacy 25.5 ml/min; Est GFR (African American) 33.4 ml/min; Est GFR (Non-African American) 28.8 ml/min; Globulin 2.4 gm/dl (2.5-4.0); Phosphorus 2.3 mg/dl (2.5-4.9); Potassium 3.4 mmol/L (3.5-5.1); Total Protein 5.8 gm/dl (6.0-8.3)
[2022-04-07] MEDS: FAMOTIDINE 20 MG in SYRINGE 3 ML IV SCH (09:23)
--- NOTE | 2022-04-07 09:52 | Electrocardiogram Report ---
Test Reason : Blood Pressure : / mmHG Vent. Rate : 085 BPM Atrial Rate : 082 BPM P-R Int : 000 ms QRS Dur : 096 ms QT Int : 366 ms P-R-T Axes : 000 075 046 degrees QTc Int : 435 ms Atrial fibrillation with premature ventricular or aberrantly conducted complexes Low voltage QRS Abnormal ECG When compared with ECG of 18-SEP-2020 09:38, Atrial fibrillation has replaced Sinus rhythm Confirmed by Jabier Leblanc ([id number]) on 04/07/2022 9:52:36 AM Referred By: REFERRED SELF Confirmed By:Jabier Leblanc
[2022-04-07] MEDS ORDERED: Nursing to Pharmacy Communication SCH (10:00)
[2022-04-07] MEDS: SODIUM BICARBONATE 8.4% 100 MEQ in DEXTROSE 5% 1,000 ML IV SCH ×2 (10:23→21:32)
[2022-04-07] MEDS: POTASSIUM CHLORIDE / WTR 10 MEQ/100 ML PLCT IV SCH ×3 (10:30→12:40)
[2022-04-07] MEDS: POLYETHYLENE (MIRALAX) 17 GM PACK PO SCH (11:08)
[2022-04-07] MEDS ORDERED: INSULIN ASPART PER UNIT SC SCH (12:00)
[2022-04-08] MEDS: COLLAGENASE OINT 30 GM TUBE EXT PRN (04:40)
[2022-04-08 07:13] LABS: Hematocrit (blood only) 27.5 % (42.0-52.0); Hemoglobin 9.5 g/dl (14.0-18.0); Mean Corpuscular Hemoglobin 34.2 pg (25.0-34.0); Mean Corpuscular Hgb Conc 34.5 g/dL (32.0-36.0); Mean Corpuscular Volume 98.9 fL (80.0-100.0); Mean Platelet Volume 10.9 fL (9.4-12.4); Platelet Count 100 K/uL (130-400); RDW Coefficient of Variation 15.2 % (11.5-14.5); RDW Standard Deviation 54.4 fL (36.4-46.3); Red Blood Count 2.78 M/uL (4.70-6.10); White Blood Count 3.96 K/ul (4.8-10.8)
[2022-04-08 07:55] LABS: Albumin Globulin Ratio 1.3 (0.9-2); Albumin Level 3.2 gm/dl (3.4-5.0); BUN Creatinine Ratio 41.5 (10-20); Bilirubin,Total 0.5 mg/dl (0.2-1.0); Calcium 8.7 mg/dl (8.5-10.1); Creatinine Clr Calc Pharmacy 27.6 ml/min; Est GFR (African American) 35.1 ml/min; Est GFR (Non-African American) 30.3 ml/min; Globulin 2.4 gm/dl (2.5-4.0); Magnesium 1.9 mg/dl (1.7-2.4); Phosphorus 1.9 mg/dl (2.5-4.9); Potassium 3.5 mmol/L (3.5-5.1); Total Protein 5.6 gm/dl (6.0-8.3)
[2022-04-08] MEDS: SODIUM BICARBONATE 8.4% 100 MEQ in DEXTROSE 5% 1,000 ML IV SCH ×2 (08:00→20:46)
[2022-04-08] MEDS: HEPARIN SOD 5,000 UNIT/0.5 ML VIAL SQ SCH ×2 (08:13→20:21)
[2022-04-08] MEDS: POLYETHYLENE (MIRALAX) 17 GM PACK PO SCH (08:13)
[2022-04-08] MEDS: INSULIN ASPART PER UNIT SC SCH ×4 (08:21→20:30)
[2022-04-08] MEDS ORDERED: POTASSIUM PHOS 3 MMOL/1 ML INFUSION IV STA (08:27)
[2022-04-08] MEDS: FAMOTIDINE 20 MG in SYRINGE 3 ML IV SCH (08:31)
--- NOTE | 2022-04-08 08:39 | Hospitalist Progress Note ---
Date of Service April 08, 2022 Assessment & Plan (1) AMS (altered mental status): Plan: -Admitted to PCU on tele -At this time the patient is currently afebrile, 99% on RA and hemodynamically stable -Patient's acute confusion/AMS was likely multifactorial including hypoglycemic, acute dehydration, and acute renal failure -CT of the head was negative, no focal defect on neuro exam, no signs of infection at this time -EMS noted the patient to be hypoglycemic in the 30's, BS elevated and on sliding scale -The patient has had a poor oral intake and is very dehydrated on admission -Continue to monitor on tele/pulse oximetry, bedrest, fall precautions, aspira tion precautions -Continue 5000 units SQ heparin q12h -PT/OT consults ordered -Likely patient will need SNF rehab, unless he is able to improve over the next day or so -Discussion with patient's family regarding possible SNF rehab if needed (patient did have a short stay at [facility] last year) (2) Acute renal failure: Plan: Reviewed BMP -Cr today is 1.95 (2.03) (2.43 on admiss), baseline appears between 1.3-1.5 -Likely due to his severe dehydration and continuing lisinopril -Decreased Sodium bicarbonate in D5W 50/hr -Repeat AM labs (3) Metabolic acidosis with normal anion gap and bicarbonate losses: Plan: -See acute renal failure (4) Elevated troponin: Plan: -Initial high sensitivity trop elevated at 39.9, currently decreased to 36.8, patient continues to deny any chest pain, no acute ST segment or T-wave changes on ECG -Likely due to his acute illness, TRAVIS, and demand -Continue to monitor on tele (5) Difficulty swallowing: Plan: -Noted by his over the past 2 months -Patient has history of multiple prior malignancies -CT of the chest/abd/pelvis with no acute changes and no change when compared to previous. Patient had video swallow today and I reviewed this and spoke with speech. Speech recommended moist, minced, mildly thick liquids, mouth care ACAH and to follow up with speech upon discharge. Continue aspiration precautions (6) Hypoglycemia: Plan: -Likely due to his poor oral intake, continue used of antihyperglycemics, weight loss and acute renal failure -Glucose is currently stable, hold all home antihyperglycemic agents at this time -Monitor BSG -insulin sliding scale -Continue correction factor of 50 q6h for now (until can evaluate what patient is able to eat) -Adjust regimen as needed (7) Paroxysmal atrial fibrillation: Plan: -Stable -Will hold Eliquis for now with his renal failure -HR is currently controlled, continue to monitor on tele -Heparin 5000 units SQ q 12H (8) Dyslipidemia: Plan: -Hold statin for now (9) Hypertension: Plan: -Stable BP - 126/75 -Continue to hold lisinopril with acute renal failure (10) MGUS (monoclonal gammopathy of unknown significance): Plan: -Stable -Follows with heme/onc (11) Anemia: Plan: -Stable -MCV is elevated -B12 and folate levels both normal (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: Plan: -See hypoglycemia (13) Metabolic encephalopathy: Plan: - See above AMS (14) Hypophosphatemia: Plan: Reviewed BMP - Phosphorus today 1.9 (2.3) - Potassium 3.5 (3.4) Replete today with IV Potassium Phosphate 24 mmol - Check AM labs (15) Stage II pressure ulcer of left ankle: Plan: - Care instructions per wound - Santyl rx - Waffle boot - Elevate lower extremities (16) Pressure ulcer of right knee: Plan: - Care instructions per wound - Santyl Plan DNR/DNI Continue Heparin 5000 SQ every 12 hours Continue PT/OT and speech Wound care following Continue miost, minced diet with mildly thick liquids, mouth care ACHS and follow up with speech upon discharge Possibly may need SNF rehab Admission and Anticipated Discharge Date Admission Date: April 06, 2022 Subjective Patient was seen this AM, he was awake sitting upright in bed. He states he was feeling some better today but still felt weak. He denied any chest pain, SOB or dyspnea. Spoke with patient's daughter Paz this afternoon. Patient had his swallow evaluation today. Speech stated he is having silent aspirations of thin liquids and recommended moist, minced, mildly thick liquids, mouth care ACAH and to follow up with speech upon discharge. Review of Systems Review of Systems: Denies current fever, chills, headache, changes in vision, hearing, taste, and smell, chest pain, SOB, cough, abdominal pain, nausea, vom iting, diarrhea, hematemesis, melena, dysuria, hematuria All systems have been reviewed and are otherwise negative. Constitutional: + fatigue, + weakness and + anorexia; no fever and no chills Respiratory: no cough, no chest congestion, no change in sputum and no dyspnea per patient's he has had some coughing with eating and sometimes with taking his po medications Cardiovascular: no chest pain, no dyspnea, no dyspnea at rest and no syncope Gastrointestinal: + dysphagia and + constipation; no abdominal pain, no nausea, no vomiting, no pain with swallowing and no blood in stools has urostomy Integumentary: has pressure ulcers right knee, left lateral ankle and right hip - follows with wound clinic Neurologic: + gait abnormality, + unsteadiness, + falls and + generalized weakness Psychiatric: + change in appetite and + irritability; no hallucinations and no auditory hallucinations Physical Exam Constitutional: + ill appearing, + cachectic, + frail appearing and + lethargic Neck: trachea midline, no thyromegaly Respiratory: + cough and able to speak in complete sentences; no respiratory distress and does not use accessory muscles Auscultation: + diminished lung sounds Cardiovascular: Rate/Rhythm: + irregularly irregular Heart Sounds: normal S1 and normal S2 Extremities: no calf tenderness and no edema Neurologic: PERRL, EOMI, accommodation nl, no face palsy, no dysarthria moves all extremities and awake Psychiatric: Orientation: alert, oriented to person and oriented to place Mood: + irritable mood Results & Data Results & Data ([facility]) Vital Signs (Past 12 Hours) Vital Signs Temp Pulse Pulse Resp BP BP Pulse Ox 04/08/22 07:13 36.9 C 81 19 126/78 96 04/08/22 04:15 36.6 C 76 18 117/67 95 04/07/22 22:07 85 04/07/22 22:49 36.5 C 86 18 115/67 96 O2 Del Method 04/08/22 07:13 Room Air 04/08/22 04:15 Room Air 04/07/22 22:07 04/07/22 22:49 Room Air Laboratory Results Abnormal lab results 04/07/22 04/07/22 04/08/22 Range/Units 16:19 20:11 06:37 WBC 3.96 L (4.8-10.8) K/ul RBC 2.78 L (4.70-6.10) M/uL Hgb 9.5 L (14.0-18.0) g/dl Hct 27.5 L (42.0-52.0) % MCH 34.2 H (25.0-34.0) pg RDW Std Deviation 54.4 H (36.4-46.3) fL RDW Coeff of Tasneem 15.2 H (11.5-14.5) % Plt Count 100 L (130-400) K/uL Sodium (136-145) mmol/L Chloride (98-107) mmol/L Carbon Dioxide (21-32) mmol/L BUN (6-23) mg/dl Creatinine (0.6-1.4) mg/dl BUN/Creatinine Ratio (10-20) Glucose (70-99(Fasting)) mg/dl POC Glucose 192 H 173 H (70-99) mg/dl Phosphorus (2.5-4.9) mg/dl AST (13-39) U/L Total Protein (6.0-8.3) gm/dl Albumin (3.4-5.0) gm/dl Globulin (2.5-4.0) gm/dl 04/08/22 04/08/22 04/08/22 Range/Units 06:37 07:15 11:26 WBC (4.8-10.8) K/ul RBC (4.70-6.10) M/uL Hgb (14.0-18.0) g/dl Hct (42.0-52.0) % MCH (25.0-34.0) pg RDW Std Deviation (36.4-46.3) fL RDW Coeff of Tasneem (11.5-14.5) % Plt Count (130-400) K/uL Sodium 146 H (136-145) mmol/L Chloride 119 H (98-107) mmol/L Carbon Dioxide 20 L (21-32) mmol/L BUN 81 H D (6-23) mg/dl Creatinine 1.95 H (0.6-1.4) mg/dl BUN/Creatinine Ratio 41.5 H (10-20) Glucose 215 H (70-99(Fasting)) mg/dl POC Glucose 229 H 223 H (70-99) mg/dl Phosphorus 1.9 L (2.5-4.9) mg/dl AST 10 L (13-39) U/L Total Protein 5.6 L (6.0-8.3) gm/dl Albumin 3.2 L (3.4-5.0) gm/dl Globulin 2.4 L (2.5-4.0) gm/dl Diagnostic Findings Videofluoroscopic Swallow 04/08/22 13:00 FL video swallow CLINICAL HISTORY: 86 years-old Male with assess for aspiration. Dysphasia with possible aspiration TECHNIQUE: Video fluoroscopic evaluation of swallowing was performed in the AP and lateral projections by the speech pathology staff. The patient is fed thin liquid, mildly thick, pudding and cracker with paste consistencies. FLUOROSCOPY TIME: 5.2 minutes. COMPARISON STUDY: Chest CT 04/06/2022 FINDINGS: Silent aspiration with thin liquid barium. Additional aspiration with mildly thick consistency. Vallecular retention with pudding consistency. Mild soft tissue dysmotility is noted throughout the exam. Calcific granulomata of the lungs redemonstrated. IMPRESSION: 1. Multiple consistency aspiration. 2. Please see the speech pathologist report for detailed findings and recommendations. ACT 112: Negative or not required by law. Electronically signed by: Parish Robles M.D. 04/08/2022 2:13 PM PG Care Time/CCT Total # of Minutes Spent Total Time Spent with Patient: Total time spent is greater than 50% in coordination of care (as documented) at patient's floor/unit and/or counseling patient: Coding Level of Care Code 48725 SUB INP/OBS CARE 2/35MIN Diagnoses AMS (altered mental status) R41.82 Acute renal failure N17.9 Metabolic acidosis with normal anion gap and bicarbonate losses E87.20 Elevated troponin R77.8 Difficulty swallowing R13.10 Hypoglycemia E16.2 Paroxysmal atrial fibrillation I48.0 Dyslipidemia E78.5 Hypertension I10 MGUS (monoclonal gammopathy of unknown significance) D47.2 Anemia D64.9 Anemia type: unspecified type Diabetes mellitus with kidney complication E11.29 Metabolic encephalopathy G93.41 Hypophosphatemia E83.39 Stage II pressure ulcer of left ankle L89.522 Pressure ulcer of right knee L89.899 (1) Anemia Anemia type: unspecified type Qualified Code(s): D64.9 - Anemia, unspecified
[2022-04-08] MEDS ORDERED: POTASSIUM PHOSPHATE 24 MMOL in SODIUM CHLORIDE 0.9% 500 ML IV ONE (08:45)
--- NOTE | 2022-04-08 14:14 | Fluoroscopy Report ---
FL video swallow CLINICAL HISTORY: 86 years-old Male with assess for aspiration. Dysphasia with possible aspiration TECHNIQUE: Video fluoroscopic evaluation of swallowing was performed in the AP and lateral projection s by the speech pathology staff. The patient is fed thin liquid, mildly thick, pudding and cracker wi th paste consistencies. FLUOROSCOPY TIME: 5.2 minutes. COMPARISON STUDY: Chest CT 04/06/2022 FINDINGS: Silent aspiration with thin liquid barium. Additional aspiration with mildly thick consiste ncy. Vallecular retention with pudding consistency. Mild soft tissue dysmotility is noted throughout the exam. Calcific granulomata of the lungs redemonstrated. IMPRESSION: 1. Multiple consistency aspiration. 2. Please see the speech pathologist report for detailed findings and recommendations. ACT 112: Negative or not required by law. Electronically signed by: Parish Robles M.D. 04/08/2022 2:13 PM
[2022-04-09 07:37] LABS: Hematocrit (blood only) 27.1 % (42.0-52.0); Hemoglobin 9.3 g/dl (14.0-18.0); Mean Corpuscular Hemoglobin 33.8 pg (25.0-34.0); Mean Corpuscular Hgb Conc 34.3 g/dL (32.0-36.0); Mean Corpuscular Volume 98.5 fL (80.0-100.0); Mean Platelet Volume 10.7 fL (9.4-12.4); Platelet Count 102 K/uL (130-400); RDW Coefficient of Variation 15.2 % (11.5-14.5); RDW Standard Deviation 55.3 fL (36.4-46.3); Red Blood Count 2.75 M/uL (4.70-6.10); White Blood Count 4.47 K/ul (4.8-10.8)
[2022-04-09 07:52] LABS: Albumin Globulin Ratio 1.3 (0.9-2); Albumin Level 3.1 gm/dl (3.4-5.0); BUN Creatinine Ratio 32.7 (10-20); Bilirubin,Total 0.5 mg/dl (0.2-1.0); Calcium 8.4 mg/dl (8.5-10.1); Creatinine Clr Calc Pharmacy 25.8 ml/min; Est GFR (Non-African American) 28.5 ml/min; Globulin 2.3 gm/dl (2.5-4.0); Magnesium 1.8 mg/dl (1.7-2.4); Phosphorus 2.6 mg/dl (2.5-4.9); Potassium 3.5 mmol/L (3.5-5.1); Total Protein 5.4 gm/dl (6.0-8.3)
--- NOTE | 2022-04-09 08:15 | Hospitalist Progress Note ---
Date of Service April 09, 2022 Assessment & Plan (1) AMS (altered mental status): Plan: -Admitted to PCU on tele -At this time the patient is currently afebrile, 98% on RA and hemodynamically stable -Patient's acute confusion/AMS was likely multifactorial including hypoglycemic, acute dehydration, and acute renal failure -Patient currently is A&Ox3 -CT of the head was negative, no focal defect on neuro exam, no signs of infection at this time -Continue to monitor on tele/pulse oximetry, bedrest, fall precautions, aspiration precautions -Continue 5000 units SQ heparin q12h -PT/OT following and recommend SNF less than 3hours combined PT upon discharge -Discussion with patient's family regarding possible SNF rehab if needed (patient did have a short stay at [facility] last year) -Patient is accepted at [facility] (2) Acute renal failure: Plan: Likely due to severe dehydration Lisinopril held Reviewed BMP and will repeat labs in the AM (3) Metabolic acidosis with normal anion gap and bicarbonate losses: Plan: -See acute renal failure (4) Elevated troponin: Plan: -Initial high sensitivity trop elevated at 39.9, currently decreased to 36.8, patient continues to deny any chest pain, no acute ST segment or T-wave changes on ECG -Likely due to his acute illness, TRAVIS, and demand -Continue to monitor on tele (5) Difficulty swallowing: Plan: -Noted by his over the past 2 months -Patient has history of multiple prior malignancies -CT of the chest/abd/pelvis with no acute changes and no change when compared to previous. Patient had video swallow today and I reviewed this and spoke with speech. Speech recommended moist, minced, mildly thick liquids, mouth care ACAH and to follow up with speech upon discharge. Continue aspiration precautions Asked Speech therapy to come and talk with family to educate on nectar thick liquids for when patient returns home, likely after SNF rehab (6) Hypoglycemia: Plan: -Likely due to his poor oral intake, continue used of antihyperglycemics, weight loss and acute renal failure -Glucose is currently stable, hold all home antihyperglycemic agents at this time -Monitor BSG -insulin sliding scale -Continue correction factor of 50 q6h for now (until can evaluate what patient is able to eat) -Adjust regimen as needed (7) Paroxysmal atrial fibrillation: Plan: -Stable -Will hold Eliquis for now with his renal failure -HR is currently controlled, continue to monitor on tele -Heparin 5000 units SQ q 12H (8) Dyslipidemia: Plan: -Hold statin for now (9) Hypertension: Plan: -Stable BP - 105/64 -Continue to hold lisinopril with acute renal failure (10) MGUS (monoclonal gammopathy of unknown significance): Plan: -Stable -Follows with heme/onc -Family requested getting LDH and CEA added to labs (had order from hematology for this to be drawn) (11) Anemia: Plan: -no evidence of any active bleeding -MCV is elevated -B12 and folate levels both normal Repeat CBC in AM (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: Plan: -See hypoglycemia Acute kidney failure with tubular necrosis Patient with hypoglycemia, TRAVIS, dehydration, and non-anion gap metabolic acidosis "suspect due to renal tubular acidosis" Risk Factor(s): As above Treatment: IV hydration, bicarb IV, I&O (13) Metabolic encephalopathy: Plan: - See above AMS (14) Hypophosphatemia: Plan: Reviewed BMP - Phosphorus today normal 2.6 (1.9) - Potassium 3.5 - Check AM labs (15) Stage II pressure ulcer of left ankle: Plan: - Care instructions per wound - Santyl rx - Waffle boot - Elevate lower extremities (16) Pressure ulcer of right knee: Plan: - Care instructions per wound - Santyl (17) Constipation: Plan: Miralax daily Added Dulcolax supp x 1 (18) Demand ischemia: Plan: Possible myocardial infarction type 2 due to demand ischemia Patient with elevated troponin of 39 documented as possibly due to TRAVIS and demand. EKG shows atrial fibrillation Risk Factor(s): AMS, hypoglycemia, TRAVIS, elevated troponin Treatment: Serial troponins, EKG Plan DNR/DNI Continue Heparin 5000 SQ every 12 hours Continue PT/OT and speech Wound care following Continue miost, minced diet with mildly thick liquids, mouth care ACHS and follow up with speech upon discharge Accepted at [facility] for SNF rehab Admission and Anticipated Discharge Date Admission Date: April 06, 2022 Subjective Patient was seen this afternoon. He was sitting up in recliner and voiced no complaints. His , son and daughter were at bedside. Patient tells me he is feeling better and states he is not as weak as yesterday. Review of Systems Review of Systems: Denies current fever, chills, headache, changes in vision, hearing, taste, and smell, chest pain, SOB, cough, abdominal pain, nausea, vomiting, diarrhea, hematemesis, melena, dysuria, hematuria All systems have been reviewed and are otherwise negative. Constitutional: + fatigue and + weakness; no fever and no chills Respiratory: no cough, no chest congestion, no change in sputum and no dyspnea per patient's he has had some coughing with eating and sometimes with taking his po medications Cardiovascular: no chest pain, no dyspnea, no dyspnea at rest and no syncope Gastrointestinal: + dysphagia and + constipation; no abdominal pain, no nausea, no vomiting, no pain with swallowing and no blood in stools has urostomy Integumentary: has pressure ulcers right knee, left lateral ankle and right hip - follows with wound clinic Neurologic: + gait abnormality, + unsteadiness, + falls and + generalized w eakness Psychiatric: + change in appetite and + irritability; no hallucinations and no auditory hallucinations Physical Exam Constitutional: + ill appearing, + cachectic, + frail appearing and + lethargic Neck: trachea midline, no thyromegaly Respiratory: able to speak in complete sentences; no respiratory distress and does not use accessory muscles Auscultation: + diminished lung sounds Cardiovascular: Rate/Rhythm: + irregularly irregular Heart Sounds: normal S1 and normal S2 Extremities: no calf tenderness and no edema Neurologic: PERRL, EOMI, accommodation nl, no face palsy, no dysarthria moves all extremities and awake Psychiatric: Orientation: alert, oriented to person and oriented to place Results & Data Results & Data ([facility]) Vital Signs (Past 12 Hours) Vital Signs Temp Pulse Pulse Resp BP BP Pulse Ox 04/09/22 07:26 36.9 C 72 20 127/72 98 04/09/22 03:27 85 18 131/73 96 04/08/22 23:32 83 04/08/22 23:02 36.9 C 70 18 123/75 98 O2 Del Method 04/09/22 07:26 Room Air 04/09/22 03:27 Room Air 04/08/22 23:32 04/08/22 23:02 Room Air Laboratory Results Abnormal lab results 01/31/23 02/01/23 02/01/23 Range/Units 19:53 07:02 07:02 WBC 4.47 L (4.8-10.8) K/ul RBC 2.75 L (4.70-6.10) M/uL Hgb 9.3 L (14.0-18.0) g/dl Hct 27.1 L (42.0-52.0) % RDW Std Deviation 55.3 H (36.4-46.3) fL RDW Coeff of Tasneem 15.2 H (11.5-14.5) % Plt Count 102 L (130-400) K/uL Sodium (136-145) mmol/L Chloride (98-107) mmol/L BUN (6-23) mg/dl Creatinine (0.6-1.4) mg/dl BUN/Creatinine Ratio (10-20) Glucose (70-99(Fasting)) mg/dl POC Glucose 187 H (70-99) mg/dl Calcium (8.5-10.1) mg/dl AST (13-39) U/L Total Protein (6.0-8.3) gm/dl Albumin (3.4-5.0) gm/dl Globulin (2.5-4.0) gm/dl Carcinoembryonic Ag 3.6 H (0-2.5) ng/ml 04/09/22 04/09/22 04/09/22 Range/Units 07:02 07:16 11:42 WBC (4.8-10.8) K/ul RBC (4.70-6.10) M/uL Hgb (14.0-18.0) g/dl Hct (42.0-52.0) % RDW Std Deviation (36.4-46.3) fL RDW Coeff of Tasneem (11.5-14.5) % Plt Count (130-400) K/uL Sodium 146 H (136-145) mmol/L Chloride 116 H (98-107) mmol/L BUN 67 H (6-23) mg/dl Creatinine 2.05 H (0.6-1.4) mg/dl BUN/Creatinine Ratio 32.7 H (10-20) Glucose 203 H (70-99(Fasting)) mg/dl POC Glucose 209 H 251 H (70-99) mg/dl Calcium 8.4 L (8.5-10.1) mg/dl AST 9 L (13-39) U/L Total Protein 5.4 L (6.0-8.3) gm/dl Albumin 3.1 L (3.4-5.0) gm/dl Globulin 2.3 L (2.5-4.0) gm/dl Carcinoembryonic Ag (0-2.5) ng/ml 04/09/22 Range/Units 16:12 WBC (4.8-10.8) K/ul RBC (4.70-6.10) M/uL Hgb (14.0-18.0) g/dl Hct (42.0-52.0) % RDW Std Deviation (36.4-46.3) fL RDW Coeff of Tasneem (11.5-14.5) % Plt Count (130-400) K/uL Sodium (136-145) mmol/L Chloride (98-107) mmol/L BUN (6-23) mg/dl Creatinine (0.6-1.4) mg/dl BUN/Creatinine Ratio (10-20) Glucose (70-99(Fasting)) mg/dl POC Glucose 202 H (70-99) mg/dl Calcium (8.5-10.1) mg/dl AST (13-39) U/L Total Protein (6.0-8.3) gm/dl Albumin (3.4-5.0) gm/dl Globulin (2.5-4.0) gm/dl Carcinoembryonic Ag (0-2.5) ng/ml PG Care Time/CCT Total # of Minutes Spent Total Time Spent with Patient: Total time spent is greater than 50% in coordination of care (as documented) at patient's floor/unit and/or counseling patient: Coding Level of Care Code 99009 SUB INP/OBS CARE 2/35MIN Diagnoses AMS (altered mental status) R41.82 Acute renal failure N17.9 Metabolic acidosis with normal anion gap and bicarbonate losses E87.20 Elevated troponin R77.8 Difficulty swallowing R13.10 Hypoglycemia E16.2 Paroxysmal atrial fibrillation I48.0 Dyslipidemia E78.5 Hypertension I10 MGUS (monoclonal gammopathy of unknown significance) D47.2 Anemia D64.9 Anemia type: unspecified type Diabetes mellitus with kidney complication E11.29 Metabolic encephalopathy G93.41 Hypophosphatemia E83.39 Stage II pressure ulcer of left ankle L89.522 Pressure ulcer of right knee L89.899 Constipation K59.00 Demand ischemia I24.8 (1) Anemia Anemia type: unspecified type Qualified Code(s): D64.9 - Anemia, unspecified
[2022-04-09] MEDS: HEPARIN SOD 5,000 UNIT/0.5 ML VIAL SQ SCH ×2 (08:53→20:57)
[2022-04-09] MEDS: POLYETHYLENE (MIRALAX) 17 GM PACK PO SCH (08:53)
[2022-04-09] MEDS: FAMOTIDINE 20 MG in SYRINGE 3 ML IV SCH (09:02)
[2022-04-09] MEDS: INSULIN ASPART PER UNIT SC SCH ×4 (09:11→20:55)
[2022-04-09] MEDS ORDERED: bisacodyL 10 MG SUPP PR STA ×2 (12:02→14:46)
[2022-04-10 06:10] LABS: Hematocrit (blood only) 28.1 % (42.0-52.0); Hemoglobin 9.6 g/dl (14.0-18.0); Mean Corpuscular Hemoglobin 34.2 pg (25.0-34.0); Mean Corpuscular Hgb Conc 34.2 g/dL (32.0-36.0); Mean Platelet Volume 10.8 fL (9.4-12.4); Platelet Count 105 K/uL (130-400); RDW Standard Deviation 54.6 fL (36.4-46.3); Red Blood Count 2.81 M/uL (4.70-6.10); White Blood Count 4.59 K/ul (4.8-10.8)
[2022-04-10 06:22] LABS: BUN Creatinine Ratio 33.8 (10-20); Calcium 8.7 mg/dl (8.5-10.1); Creatinine Clr Calc Pharmacy 25.5 ml/min; Est GFR (African American) 33.8 ml/min; Est GFR (Non-African American) 29.2 ml/min; Magnesium 1.8 mg/dl (1.7-2.4); Phosphorus 2.7 mg/dl (2.5-4.9); Potassium 3.7 mmol/L (3.5-5.1)
[2022-04-10] MEDS ORDERED: DEXTROSE 5% 1,000 ML IV SCH (08:30)
[2022-04-10] MEDS: POLYETHYLENE (MIRALAX) 17 GM PACK PO SCH (09:29)
[2022-04-10] MEDS: HEPARIN SOD 5,000 UNIT/0.5 ML VIAL SQ SCH ×2 (09:30→20:48)
[2022-04-10] MEDS: INSULIN ASPART PER UNIT SC SCH ×4 (09:57→20:45)
[2022-04-10] MEDS: FAMOTIDINE 20 MG in SYRINGE 3 ML IV SCH (09:57)
--- NOTE | 2022-04-10 16:27 | Hospitalist Progress Note ---
Date of Service April 10, 2022 Assessment & Plan (1) AMS (altered mental status): Plan: -Patient's acute confusion/AMS was likely multifactorial including hypoglycemic, acute dehydration, and acute renal failure thus c/w metabolic encephalopathy -Patient currently is A&Ox3 -CT of the head was negative, no focal defect on neuro exam, no signs of infection at this time -Continue to monitor on tele/pulse oximetry, bedrest, fall precautions, aspiration precautions -Continue 5000 units SQ heparin q12h -PT/OT following and recommend SNF less than 3hours combined PT upon discharge -Discussion with patient's family regarding possible SNF rehab if needed (patient did have a short stay at [facility] last year) -Patient is accepted at [facility] [place] pending auth -AMS has resolved (2) Acute renal failure: Plan: Likely due to severe dehydration but possible ATN - 2.43 on admit, now 2.0, baseline 1.5 - Lisinopril held - renal fxn has improved but is still not at baseline - Reviewed BMP today, will repeat BMP in AM - Added gentle IVF hydration today with D5W at 80 ml/hr (3) Metabolic acidosis with normal anion gap and bicarbonate losses: Plan: RESOLVED (4) Elevated troponin: Plan: - Initial high sensitivity trop elevated at 39.9, currently decreased to 36.8, patient continues to deny any chest pain, no acute ST segment or T-wave changes on ECG - Likely due to his acute illness, TRAVIS, and type II UT due to myocardial demand ischemia - Placed on tele initially but this can be discontinued (5) Difficulty swallowing: Plan: -Noted by his over the past 2 months -Patient has history of multiple prior malignancies -CT of the chest/abd/pelvis with no acute changes and no change when compared to previous. Patient had video swallow today and I reviewed this and spoke with speech. Speech recommended moist, minced, mildly thick liquids, mouth care ACAH and to follow up with speech upon discharge. Continue aspiration precautions Asked Speech therapy to come and talk with family to educate on nectar thick liquids for when patient returns home, likely after SNF rehab (6) Hypoglycemia: Plan: -Likely due to his poor oral intake, continue used of antihyperglycemics, weight loss and acute renal failure -Glucose is currently stable, hold all home antihyperglycemic agents at this time -Monitor BSG -insulin sliding scale -Continue correction factor of 50 q6h for now (until can evaluate what patient is able to eat) -Adjust regimen as needed RESOLVED (7) Paroxysmal atrial fibrillation: Plan: -Stable -Will hold Eliquis for now with his renal failure -HR is currently controlled, continue to monitor on tele -Heparin 5000 units SQ q 12H (8) Hypertension: Plan: -Stable BP - 105/64 -Continue to hold lisinopril with acute renal failure (9) MGUS (monoclonal gammopathy of unknown significance): Plan: -Stable -Follows with heme/onc -Family requested getting LDH and CEA added to labs (had order from hematology for this to be drawn) (10) Anemia: Plan: -no evidence of any active bleeding -MCV is elevated -B12 and folate levels both normal Repeat CBC in AM (11) Hypophosphatemia: Plan: Reviewed BMP - Phosphorus today normal 2.6 (1.9) - Potassium 3.5 - Continues to be normal at 2.7 upon review of phos on AM labs (12) Stage II pressure ulcer of left ankle: Plan: - Care instructions per wound - Santyl rx - Waffle boot - Elevate lower extremities (13) Pressure ulcer of right knee: Plan: - Care instructions per wound - Santyl (14) Constipation: Plan: Miralax daily Added Dulcolax supp x 1 Plan DNR/DNI Continue Heparin 5000 SQ every 12 hours Continue PT/OT and speech Wound care following Continue miost, minced diet with mildly thick liquids, mouth care ACHS and fo llow up with speech upon discharge Accepted at [facility] [place] for SNF rehab pending auth which was denied by insurance on 04/10. Will perform peer to peer on 04/11. Plan d/w Dr. Mayes. Admission and Anticipated Discharge Date Admission Date: April 06, 2022 Subjective Patient seen on daily rounds this morning. Voiced no complaints. Oriented x3. He is hoping he can be discharged today. Physical Exam Physical Exam: GENERAL: 86 yo Well-developed, well-nourished WM. NAD. LUNGS: Clear to auscultation bilaterally. CARDIOVASCULAR: Irreg rhythm, controlled rate. NEURO: A&Ox3, no neuro deficits. Results & Data Results & Data ([facility]) Vital Signs (Past 12 Hours) Vital Signs Temp Pulse Resp BP Pulse Ox O2 Del Method 04/10/22 15:50 36 C L 71 19 131/71 92 Room Air 04/10/22 10:52 36.7 C 84 18 119/67 96 Room Air 04/10/22 07:13 36.6 C 86 19 128/79 96 Room Air Laboratory Results 04/10/22 05:43 04/10/22 05:43 PG Care Time/CCT Total # of Minutes Spent Total Time Spent with Patient: Total time spent is greater than 50% in coordination of care (as documented) at patient's floor/unit and/or counseling patient: Coding Level of Care Code 95153 SUB INP/OBS CARE 235MIN Diagnoses AMS (altered mental status) R41.82 Acute renal failure N17.9 Metabolic acidosis with normal anion gap and bicarbonate losses E87.20 Elevated troponin R77.8 Difficulty swallowing R13.10 Hypoglycemia E16.2 Paroxysmal atrial fibrillation I48.0 Hypertension I10 MGUS (monoclonal gammopathy of unknown significance) D47.2 Anemia D64.9 Anemia type: unspecified type Hypophosphatemia E83.39 Stage II pressure ulcer of left ankle L89.522 Pressure ulcer of right knee L89.899 Constipation K59.00 (1) Anemia Anemia type: unspecified type Qualified Code(s): D64.9 - Anemia, unspecified
[2022-04-10] MEDS: FLUCONAZOLE 100 MG TAB PO SCH (20:48)
[2022-04-10] MEDS: AMPICILLIN 250 MG in SODIUM CHLORIDE 0.9% 50 ML IV SCH (20:49)
[2022-04-10] MEDS ORDERED: MELATONIN 3 MG TAB PO PRN (22:59)
[2022-04-11] MEDS: AMPICILLIN 250 MG in SODIUM CHLORIDE 0.9% 50 ML IV SCH ×4 (01:31→19:52)
[2022-04-11] MEDS: HEPARIN SOD 5,000 UNIT/0.5 ML VIAL SQ SCH ×2 (08:20→20:00)
[2022-04-11] MEDS: POLYETHYLENE (MIRALAX) 17 GM PACK PO SCH (08:20)
[2022-04-11] MEDS: FAMOTIDINE 20 MG in SYRINGE 3 ML IV SCH (08:21)
[2022-04-11] MEDS: INSULIN ASPART PER UNIT SC SCH ×4 (08:37→20:31)
[2022-04-11 08:49] LABS: BUN Creatinine Ratio 30.9 (10-20); Calcium 9.3 mg/dl (8.5-10.1); Creatinine Clr Calc Pharmacy 21.7 ml/min; Est GFR (African American) 27.8 ml/min
--- NOTE | 2022-04-11 16:02 | Hospitalist Progress Note ---
Date of Service April 11, 2022 Assessment & Plan (1) AMS (altered mental status): Plan: -Patient's acute confusion/AMS was likely multifactorial including hypoglycemic, acute dehydration, and acute renal failure thus c/w metabolic encephalopathy -Patient currently is A&Ox3 -CT of the head was negative, no focal defect on neuro exam, no signs of infection at this time -Continue to monitor on tele/pulse oximetry, bedrest, fall precautions, aspiration precautions -Continue 5000 units SQ heparin q12h -PT/OT following and recommend SNF less than 3 hours combined PT upon discharge -Discussion with patient's family regarding possible SNF rehab if needed (patient did have a short stay at [facility] last year) -Patient is accepted at [facility] pending auth -AMS has resolved (2) Acute renal failure: Plan: Likely due to severe dehydration but possible ATN - 2.43 on admit, baseline 1.5 - Lisinopril held - renal fxn has improved but is still not at baseline - Reviewed BMP today, creatinine uptrending today 2.36 from 2.01 on 04/10 - Consult nephrology for additional recommendations, still suspect dehydration, however, could also be ATN - D/w Dr. Locke, will add back on IVF overnight and reassess renal function in AM (3) Metabolic acidosis with normal anion gap and bicarbonate losses: Plan: RESOLVED (4) Elevated troponin: Plan: - Initial high sensitivity trop elevated at 39.9, currently decreased to 36.8, patient continues to deny any chest pain, no acute ST segment or T-wave changes on ECG - Likely due to his acute illness, TRAVIS, and type II IA due to myocardial demand ischemia - Placed on tele initially but this can be discontinued (5) Difficulty swallowing: Plan: -Noted by his over the past 2 months -Patient has history of multiple prior malignancies -CT of the chest/abd/pelvis with no acute changes and no change when compared to previous. Patient had video swallow today and I reviewed this and spoke with speech. Speech recommended moist, minced, mildly thick liquids, mouth care ACAH and to follow up with speech upon discharge. Continue aspiration precautions Asked Speech therapy to come and talk with family to educate on nectar thick liquids for when patient returns home, likely after SNF rehab (6) Hypoglycemia: Plan: -Likely due to his poor oral intake, continue used of antihyperglycemics, weight loss and acute renal failure -Glucose is currently stable, hold all home antihyperglycemic agents at this time -Monitor BSG -insulin sliding scale -Continue correction factor of 50 q6h for now (until can evaluate what patient is able to eat) -Adjust regimen as needed RESOLVED (7) Paroxysmal atrial fibrillation: Plan: -Stable -Will hold Eliquis for now with his renal failure -HR is currently controlled, continue to monitor on tele -Heparin 5000 units SQ q 12H (8) Hypertension: Plan: -Stable BP - 105/64 -Continue to hold lisinopril with acute renal failure (9) MGUS (monoclonal gammopathy of unknown significance): Plan: -Stable -Follows with heme/onc -Family requested getting LDH and CEA added to labs (had order from hematology for this to be drawn) (10) Anemia: Plan: -no evidence of any active bleeding -MCV is elevated -B12 and folate levels both normal (11) Hypophosphatemia: Plan: Reviewed BMP - Phosphorus today normal 2.6 (1.9) - Potassium 3.5 - Continues to be normal at 2.7 upon review of phos on AM labs (12) Stage II pressure ulcer of left ankle: Plan: - Care instructions per wound - Santyl rx - Waffle boot - Elevate lower extremities - Apparently was placed on abx at wound care clinic d/t growth of enterococcus + wolfgang but cannot find any record of this - Per , pt is on Ampicillin and Fluconazole. Attempted to reach out to wound clinic provider but did not hear back - Resume Ampicillin + fluconazole on 04/10 (13) Pressure ulcer of right knee: Plan: - Care instructions per wound - Santyl (14) Constipation: Plan: Miralax daily Plan DNR/DNI Continue Heparin 5000 SQ every 12 hours Continue PT/OT and speech and wound care Continue moist, minced diet with mildly thick liquids, mouth care ACHS and follow up with speech upon discharge Accepted at [facility] for SNF rehab pending auth which was denied by insurance on 04/10. Attempted peer to peer on 04/11, they again denied due to all of issues being chronic. Family is going to appeal and may even pay privately. Plan d/w Dr. Mayes. Admission and Anticipated Discharge Date Admission Date: April 06, 2022 Subjective Patient seen on daily rounds this morning. Voiced no complaints. Oriented x3. No issues reported by RN. Physical Exam Physical Exam: GENERAL: 86 yo Well-developed, well-nourished WM. NAD. LUNGS: Clear to auscultation bilaterally. CARDIOVASCULAR: Irreg rhythm, controlled rate. : urostomy noted NEURO: A&Ox3, no neuro deficits. Results & Data Results & Data ([facility]) Vital Signs (Past 12 Hours) Vital Signs Temp Pulse Resp BP BP Pulse Ox O2 Del Method 04/11/22 15:47 36.4 C L 61 18 138/71 98 Room Air 04/11/22 12:01 36.8 C 71 18 139/70 94 Room Air 04/11/22 08:11 36.6 C 79 18 138/74 94 Room Air Laboratory Results 04/10/22 05:43 04/11/22 06:52 PG Care Time/CCT Total # of Minutes Spent Total Time Spent with Patient: Total time spent is greater than 50% in coordination of care (as documented) at patient's floor/unit and/or counseling patient: Coding Level of Care Code 80027 SUB INP/OBS CARE 2/35MIN Diagnoses AMS (altered mental status) R41.82 Acute renal failure N17.9 Metabolic acidosis with normal anion gap and bicarbonate losses E87.20 Elevated troponin R77.8 Difficulty swallowing R13.10 Hypoglycemia E16.2 Paroxysmal atrial fibrillation I48.0 Hypertension I10 MGUS (monoclonal gammopathy of unknown significance) D47.2 Anemia D64.9 Anemia type: unspecified type Hypophosphatemia E83.39 Stage II pressure ulcer of left ankle L89.522 Pressure ulcer of right knee L89.899 Constipation K59.00 (1) Anemia Anemia type: unspecified type Qualified Code(s): D64.9 - Anemia, unspecified
--- NOTE | 2022-04-11 16:41 | Nephrology Consultation ---
Date of Consultation April 11, 2022 Assessment & Plan (1) TRAVIS (acute kidney injury): Non-oliguric. Urostomy with concentrated urine. Remains volume depleted and dehydrated. PO intake poor. IVF restarted with 1/2 NS. Electrolytes otherwise acceptable accounting for free water deficit. Medications are appropriately dosed for kidney dysfunction. Document strict I/O. Repeat metabolic profile tomorrow AM. (2) Stage III chronic kidney disease: Baseline creatinine 1.6 mg/dL. Laboratory studies obtained in the fall demonstrate progression of CKD over the past year. CT demonstrating symmetric BL renal atrophy. I suspect this is on the basis on microvascular disease. (3) Hypernatremia: Poor PO intake reported. Thickened liquids. Denies thirst. IVF restarted with 1/2 NS @ 125 ml/hr. Free water deficit ~1-2 L. Repeat metabolic profile tomorrow AM. (4) Acute metabolic encephalopathy due to hypoglycemia: Clinical presentation consistent with metabolic encephalopathy attributed to hypoglycemia and dehydration. Raphael was not oriented during my conversation and it was unclear if this is baseline for him. (5) Failure to thrive: High frailty index score. I suspect this is a major contributing factor to admitting diagnosis of hypoglycemia associated with antihyperglycemics and dehydration. (6) Anemia: h/o MGUS without notable findings of MM or plasma cell disorder. Chronic, stable. Update iron profile with next blood work. History of Present Illness Reason for Consultation: TRAVIS/CKD Requesting Physician: Familia Mayes MD Attending Physician: Familia Mayes MD History of Present Illness Mr. Raphael Espinosa is an 86 year-old male with chronic kidney disease related to a history of hypertension and TRAVIS. Baseline creatinine ~1.6 mg/dL. Medical history also notable for dementia, paroxysmal atrial fibrillation, hypertension, DMII, dyslipidemia, adenocarcinoma of the colon s/p right hemicolectomy in 2020, bladder cancer with ileal conduit, and MGUS. Raphael presented to the [facility] ED on 04/06/22 with complaints of AMS and hypoglycemia. Laboratory evaluation also notable for acute kidney injury with a serum creatinine of 2.4 mg/dL. Despite IV hydration, creatinine has fluctuated but not significantly improved since admission. Raphael remains non-oliguric. I discussed the patient's history and plan of care with Johanna Ramírez PA-C this afternoon. Raphael was seen and evaluated in his hospital room this AM. He is drinking thickened liquids due to noted aspiration. He denies notable thirst. Appetite has been poor. He had no personal concerns reported. There has been some improvement in metabolic encephalopathy and plan for possible discharge to [facility] was tentative pending insurance authorization. CT scan on admission demonstrating the kidneys to be unobstructed. Urine analysis notable for 1+ protein and acellular microscopy. Laboratory studies also notable for hypernatremia with a serum sodium of 146 mmol/L. Allergies Allergy/AdvReac Type Severity Reaction Status Date / Time No Known Drug Allergies Allergy Verified 04/01/22 11:17 Home Medications Medication Instructions Recorded Confirmed Type coenzyme Q10 100 mg capsule (Co 100 mg PO QAM #30 caps 10/19/18 04/06/22 History Q-10) [id number] 5 mg-zeaxanth 1 cap PO QAM 10/19/18 04/06/22 History 1 mg-bilberry 7.5 mg-herbal capsule ([employer] Formula) fexofenadine 180 mg tablet 180 mg PO DAILY PRN Allergy 09/18/20 04/06/22 History (Ally Allergy) Symptoms acetaminophen 500 mg capsule 500 mg PO Q6H PRN Pain 12/10/20 04/06/22 History ascorbate calcium (vitamin C) 500 500 mg PO DAILY 12/10/20 04/06/22 History mg tablet cyanocobalamin (vitamin B-12) 100 100 mcg PO QAM 12/10/20 04/06/22 History mcg tablet (Vitamin B-12) famotidine 20 mg tablet 20 mg PO QAM #90 tabs 11/18/21 04/06/22 Rx metformin 500 mg tablet,extended 500 mg PO BID #180 tabs 12/16/21 04/06/22 Rx release 24 hr lisinopril 10 mg tablet 10 mg PO DAILY #90 tabs 01/28/22 04/06/22 Rx apixaban 2.5 mg tablet (Eliquis) 2.5 mg PO BID #180 tabs 02/13/22 04/06/22 Rx atorvastatin 40 mg tablet (Lipitor) 40 mg PO QAM #90 tabs 03/19/22 04/06/22 Rx linagliptin 5 mg tablet (Tradjenta) 5 mg PO DAILY #90 tabs 03/20/22 04/06/22 Rx coffee extract 50 mg-phosphatidyl 1 tab PO HS 04/06/22 04/06/22 History serine 50 mg chewable tablet (Neuriva Original) zinc acetate 50 mg (zinc) capsule 50 mg PO DAILY 04/06/22 04/06/22 History glipizide 5 mg tablet, extended 5 mg PO DAILY #14 tabs 04/08/22 Rx release 24 hr glipizide 5 mg tablet, extended 5 mg PO QAM #90 tabs 04/08/22 Rx release 24 hr Patient History Medical History Allergic rhinitis AMD (age related macular degeneration) Anemia Chronic osteoarthritis Diabetes mellitus with kidney complication Dyslipidemia Hypertension MGUS (monoclonal gammopathy of unknown significance) Osteopenia Peripheral neuropathy Premature ventricular contractions Proteinuria Stage III chronic kidney disease Thrombocytopenia 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) Venous insufficiency Vitamin D deficiency Surgical History H/O colectomy (09/27/20) History of total cystectomy (05/2010) S/P Mohs surgery for basal cell carcinoma (04/2020) Family History Father Myocardial infarction Denies family history of Ovarian cancer Prostate cancer Breast cancer Colorectal cancer Social History Smoking Status: Former smoker Age Started Using Tobacco: 16; Age Quit Using Tobacco: 22; Second Hand Exposure: No; Do You Dip or Chew Tobacco: No; Hx Alcohol Use: Yes Alcohol type: beer Alcohol Intake Frequency: Monthly or Less Hx Substance Use: No Preferred Language: [place] Communication Ability: Effective Visual Impairment: No Limitations Hearing Ability: Hard of Hearing [employer] Required: No Beliefs That Will Affect Care: None marital status: Current Living Situation: Spouse current occupational status: retired How many Children do You have: 3 Other Information That Helps Us Care for You: No Feels Safe at Home: Yes Safety Concerns: Feels Safe At This Time Childhood Exposure to Second-Hand Smoke: Yes Diet Comment: regular caffeine: No during the past year weight has: remained stable Dental Care, Regularly: Yes Physical Activity Frequency: Daily Seatbelt Use: always Sunscreen Use: Yes Assistive Devices: Cane, Hospital Bed and Walker Review of Systems Review of Systems: All systems reviewed & are unremarkable except as noted in HPI & below Physical Exam Constitutional: well developed, + thin and + frail appearing; no acute distress Eyes: no scleral abnormality and no corneal abnormality ENMT: Mouth: + dry oral mucous membranes Neck: normal visual inspection and trachea midline Respiratory: normal respiratory effort Auscultation: lungs clear to auscultation bilaterally Cardiovascular: Rate/Rhythm: + bradycardic Heart Sounds: normal S1 and normal S2 Extremities: no edema Musculoskeletal: Extremities: no cyanosis and no clubbing Skin: + turgor decreased; no jaundice Neurologic: Motor/Sensory: no tremor and no asterixis Psychiatric: Orientation: alert and oriented x 3 Results & Data ([facility]) Vital Signs (Past 12 Hours) Vital Signs Temp Pulse Resp BP BP Pulse Ox O2 Del Method 04/11/22 15:47 36.4 C L 61 18 138/71 98 Room Air 04/11/22 12:01 36.8 C 71 18 139/70 94 Room Air 04/11/22 08:11 36.6 C 79 18 138/74 94 Room Air Laboratory Results Laboratory Results - last 24 hr 04/10/22 04/11/22 04/11/22 20:28 06:52 07:29 Sodium 146 H Potassium 4.0 Chloride 116 H Carbon Dioxide 22 Anion Gap 8 BUN 73 H Creatinine 2.36 H D Est Cr Clr Drug Dosing 21.7 Est GFR ( Amer) 27.8 Est GFR (Non-Af Amer) 24.0 BUN/Creatinine Ratio 30.9 H Glucose 187 H POC Glucose 213 H 180 H Calcium 9.3 04/11/22 04/11/22 11:18 16:32 Sodium Potassium Chloride Carbon Dioxide Anion Gap BUN Creatinine Est Cr Clr Drug Dosing Est GFR ( Amer) Est GFR (Non-Af Amer) BUN/Creatinine Ratio Glucose POC Glucose 270 H 224 H Calcium Diagnostic Findings CT OF THE ABDOMEN AND PELVIS WITHOUT CONTRAST: FINDINGS: No pneumatosis, free air or portal venous gas is present. Evaluation of the abdomen and pelvis is suboptimal as unenhanced exam. Unenhanced images of the liver, spleen, adrenal glands, kidneys and pancreas are unchanged. There is no biliary or pancreatic ductal dilatation. Moderate left and mild right renal cortical thinning is noted. There is no hydronephrosis. There is no evidence for a bowel obstruction. A moderate amount stool is noted within the distal colon and rectum. Colonic diverticulosis is present. There is no evidence for acute diverticulitis. There are postoperative findings consistent with right hemicolectomy, cystectomy, prostatectomy and right lower quadrant ileal conduit and urostomy. There is no lymphadenopathy. No fluid collection is present. There is no ascites. There are no acute fractures within the visualized skeletal structures. IMPRESSION: 1. No acute process within the abdomen or pelvis on unenhanced exam. 2. No significant change since CT of January 28, 2022. Stable postoperative findings. 3. Moderate amount of stool within the colon and rectum. 3. Colonic diverticulosis. No evidence for acute diverticulitis. PG Care Time/CCT Total # of Minutes Spent Total Time Spent with Patient: Total time spent is greater than 50% in coordination of care (as documented) at patient's floor/unit and/or counseling patient: Coding Level of Care Code INP/OBS CONSULT LVL 4, 60 MIN Diagnoses TRAVIS (acute kidney injury) N17.9 Stage III chronic kidney disease N18.3 Hypernatremia E87.0 Acute metabolic encephalopathy due to hypoglycemia G93.41; E16.2 Failure to thrive Anemia D64.9 Anemia type: unspecified type (1) Anemia Anemia type: unspecified type Qualified Code(s): D64.9 - Anemia, unspecified
[2022-04-11] MEDS ORDERED: SODIUM CHLORIDE 0.45 % 1,000 ML IV SCH (16:45)
[2022-04-11] MEDS: FLUCONAZOLE 100 MG TAB PO SCH (20:00)
[2022-04-12] MEDS: AMPICILLIN 250 MG in SODIUM CHLORIDE 0.9% 50 ML IV SCH ×4 (01:11→20:28)
[2022-04-12 07:32] LABS: BUN Creatinine Ratio 27.3 (10-20); Calcium 9.1 mg/dl (8.5-10.1); Creatinine Clr Calc Pharmacy 20.9 ml/min; Est GFR (African American) 26.6 ml/min; Potassium 4.2 mmol/L (3.5-5.1)
--- NOTE | 2022-04-12 09:01 | Nephrology Progress Note ---
Date of Service April 12, 2022 Assessment & Plan (1) TRAVIS (acute kidney injury): Plan: * Nonoliguric TRAVIS likely related to dehydration in the setting of RAFIA inhibitor therapy * RAFIA has been held * No hydronephrosis on 03/[address] * Continue gentle hydration * Monitor PRP (2) Stage III chronic kidney disease: Plan: * Baseline creatinine 1.6 mg/dL. Laboratory studies obtained in the fall demonstrate progression of CKD over the past year. CT demonstrating symmetric BL renal atrophy. I suspect this is on the basis on microvascular disease. (3) Hypernatremia: Plan: * Corrected w/ 0.45 NS Admission and Anticipated Discharge Date Admission Date: April 06, 2022 Subjective Mr. Espinosa was evaluated in his hospital room this morning. He was sitting in a chair, breathing comfortably on RA and oriented x3. He voiced no medical concerns Review of Systems Constitutional: no fever Eyes: no problem reported Ear, Nose, Mouth, Throat: no problem reported Respiratory: no cough and no dyspnea Cardiovascular: no chest pain Gastrointestinal: no abdominal pain, no vomiting and no diarrhea/loose stools Physical Exam Constitutional: + frail appearing; not in distress Eyes: PERRL, conjunctivae normal, anicteric sclerae ENMT: Mouth: + dry oral mucous membranes Neck: trachea midline, no thyromegaly Respiratory: normal respiratory effort, lungs clear to auscultation Cardiovascular: RRR, no murmur, no edema Neurologic: Speech / Cognition: normal speech and normal cognition Results & Data ([facility]) Vital Signs (Past 12 Hours) Vital Signs Temp Pulse Pulse Resp BP BP Pulse Ox 04/12/22 07:49 84 04/12/22 07:06 36.5 C 71 20 136/74 95 04/11/22 22:01 76 04/11/22 23:20 36.6 C 55 L 18 148/70 H 96 O2 Del Method 04/12/22 07:49 04/12/22 07:06 Room Air 04/11/22 22:01 04/11/22 23:20 Room Air Laboratory Results Laboratory Tests 04/12/22 06:29 Sodium 144 Potassium 4.2 Chloride 115 H Carbon Dioxide 24 BUN 67 H Creatinine 2.45 H Glucose 176 H Calcium 9.1 Diagnostic Findings 04/06/[address]: Moderate left and mild right renal cortical thinning is noted. There is no hydronephrosis. 1/31/23 Fluoroscopic Video Swallow: 1. Multiple consistency aspiration. 2. Please see the speech pathologist report for detailed findings and recommendations. 04/12/22 CXR: No acute process PG Care Time/CCT Total # of Minutes Spent Total Time Spent with Patient: Total time spent is greater than 50% in coordination of care (as documented) at patient's floor/unit and/or counseling patient: Coding Level of Care Code 57674 SUB INP/OBS CARE 3/50MIN Diagnoses TRAVIS (acute kidney injury) N17.9 Stage III chronic kidney disease N18.3 Hypernatremia E87.0
[2022-04-12] MEDS: FAMOTIDINE 20 MG in SYRINGE 3 ML IV SCH (09:16)
[2022-04-12] MEDS: INSULIN ASPART PER UNIT SC SCH ×4 (09:17→20:30)
[2022-04-12] MEDS: HEPARIN SOD 5,000 UNIT/0.5 ML VIAL SQ SCH ×2 (09:17→20:15)
[2022-04-12] MEDS: POLYETHYLENE (MIRALAX) 17 GM PACK PO SCH (09:17)
--- NOTE | 2022-04-12 09:56 | XRay Report ---
XR chest 1V portable HISTORY: 86 years-old Male rales acute shortness of breath COMPARISON: 04/06/2022 TECHNIQUE: AP view of the chest FINDINGS: Cardiac mediastinal and hilar silhouettes are unchanged. Innumerable calcified pulmonary granulomata redemonstrated within a mid to upper lung zone prominent distribution. No pneumothorax, large pleural effusion or overt pulmonary edema. No airspace consolidation typical for pneumonia. Degenerative ruthy nges of the shoulders and spine. IMPRESSION: No acute process. ACT 112: Negative or not required by law. The above report was generated using voice recognition software. It may contain grammatical, syntax o r spelling errors. Electronically signed by: Parish Robles M.D. 04/12/2022 9:53 AM
--- NOTE | 2022-04-12 10:56 | Hospitalist Progress Note ---
Date of Service April 12, 2022 Assessment & Plan (1) AMS (altered mental status): Plan: - Patient's acute confusion/AMS was likely multifactorial including hypoglycem ic, acute dehydration, and acute renal failure thus c/w metabolic encephalopathy - Patient currently is A&Ox2 - CT of the head was negative, no focal defect on neuro exam, no signs of infection at this time - Continue to monitor on tele/pulse oximetry, bedrest, fall precautions, aspiration precautions - Continue 5000 units SQ heparin q12h - PT/OT following and recommend SNF less than 3 hours combined PT upon discharge - Discussion with patient's family regarding possible SNF rehab if needed ( patient did have a short stay at [facility] last year) - Patient is accepted at [facility] pending auth - The degree of AMS that he had upon admission has greatly improved (2) Acute renal failure: Plan: Likely due to severe dehydration but possible ATN - 2.43 on admit, baseline 1.6 - Lisinopril held - renal fxn initially improved but never returned to baseline - Reviewed BMP on 04/12, creatinine continues to climb, today 2.45 from 2.36 on 04/11 - Consult placed to nephrology, appreciate assistance - Seen this AM by Dr. Bertrand, obtained CXR d/t ? rales but no acute process noted - Continue IVF and daily BMPs (3) Difficulty swallowing: Plan: - Noted by his over the past 2 months - Patient has history of multiple prior malignancies - CT of the chest/abd/pelvis with no acute changes and no change when compared to previous. - Patient had video swallow study, Speech recommended moist, minced, mildly thick liquids, mouth care ACHS and to follow up with speech upon discharge. - Continue aspiration precautions - Asked Speech therapy to come and talk with family to educate on nectar thick liquids for when patient returns home, likely after SNF rehab (4) Paroxysmal atrial fibrillation: Plan: -Stable - Will hold Eliquis for now with his renal failure - HR is currently controlled, continue to monitor on tele - Heparin 5000 units SQ q 12H (5) Hypertension: Plan: - BP stable - Continue to hold lisinopril with acute renal failure (6) MGUS (monoclonal gammopathy of unknown significance): Plan: - Stable - Follows with heme/onc - Family requested getting LDH and CEA added to labs (had order from hematology for this to be drawn) (7) Stage II pressure ulcer of left ankle: Plan: - Care instructions per wound - Santyl rx - Waffle boot - Elevate lower extremities - Apparently was placed on abx at wound care clinic d/t growth of enterococcus + wolfgang but cannot find any record of this - Per , pt is on Ampicillin and Fluconazole. Per wound care team, they rx'd abx but pt never started - Started Ampicillin 250mg q6 + fluconazole 100mg daily on 04/10 (8) Pressure ulcer of right knee: Plan: - Care instructions per wound - Santyl (9) Constipation: Plan: Miralax daily Plan DNR/DNI Continue PT/OT and speech and wound care Accepted at [facility] for SNF rehab pending auth which was denied by insurance on 04/10. Attempted peer to peer on 04/11, they again denied due to all of issues being chronic. Family is going to appeal and may even consider paying privately. D/C tele. Updated patient's via phone on 04/12. Plan d/w Dr. Mayes. Admission and Anticipated Discharge Date Admission Date: April 06, 2022 Subjective Mr. Espinosa was seen on rounds this morning. He is currently sitting up in bedside chair, oriented x2. He verbalizes no complaints, denies dyspnea, chest pain, n/v/d. Physical Exam Physical Exam: GENERAL: 86 yo thin frail elderly WM. NAD. LUNGS: Clear to auscultation bilaterally. CARDIOVASCULAR: Irreg rhythm, controlled rate. : urostomy noted NEURO: A&Ox2, no neuro deficits. Results & Data Results & Data ([facility]) Vital Signs (Past 12 Hours) Vital Signs Temp Pulse Pulse Resp BP BP Pulse Ox 04/12/22 07:49 84 04/12/22 07:06 36.5 C 71 20 136/74 95 04/11/22 23:20 36.6 C 55 L 18 148/70 H 96 O2 Del Method 04/12/22 07:49 04/12/22 07:06 Room Air 04/11/22 23:20 Room Air Laboratory Results 04/10/22 05:43 04/12/22 06:29 PG Care Time/CCT Total # of Minutes Spent Total Time Spent with Patient: Total time spent is greater than 50% in coordination of care (as documented) at patient's floor/unit and/or counseling patient: Coding Level of Care Code 07425 SUB INP/OBS CARE MIN Diagnoses AMS (altered mental status) R41.82 Acute renal failure N17.9 Difficulty swallowing R13.10 Paroxysmal atrial fibrillation I48.0 Hypertension I10 MGUS (monoclonal gammopathy of unknown significance) D47.2 Stage II pressure ulcer of left ankle L89.522 Pressure ulcer of right knee L89.899 Constipation K59.00
[2022-04-12] MEDS ORDERED: bisacodyL 10 MG SUPP PR STA (13:06)
[2022-04-12] MEDS ORDERED: SODIUM CHLORIDE 0.45 % 1,000 ML IV SCH (13:15)
[2022-04-12] MEDS: FLUCONAZOLE 100 MG TAB PO SCH (20:15)
[2022-04-13] MEDS: AMPICILLIN 250 MG in SODIUM CHLORIDE 0.9% 50 ML IV SCH ×4 (01:34→19:54)
[2022-04-13 07:42] LABS: BUN Creatinine Ratio 32.7 (10-20); Calcium 9.3 mg/dl (8.5-10.1); Creatinine Clr Calc Pharmacy 23.3 ml/min; Est GFR (African American) 30.3 ml/min; Est GFR (Non-African American) 26.2 ml/min; Potassium 4.4 mmol/L (3.5-5.1)
[2022-04-13] MEDS ORDERED: PHARMACY GLYCEMIC MGMT CONSULT PRN (08:14)
--- NOTE | 2022-04-13 08:20 | Hospitalist Progress Note ---
Date of Service April 13, 2022 Assessment & Plan (1) AMS (altered mental status): Plan: - Patient's acute confusion/AMS was likely multifactorial including hypoglycemic, acute dehydration, and acute renal failure thus c/w metabolic encephalopathy - Patient currently is A&Ox3 - CT of the head was negative, no focal defect on neuro exam, no signs of infection at this time - Continue to monitor on tele/pulse oximetry, bedrest, fall precautions, aspiration precautions - Continue 5000 units SQ heparin q12h - PT/OT following and recommend SNF less than 3 hours combined PT upon discharge-accepted at [facility] but insurance denied - The degree of AMS that he had upon admission has greatly improved (2) Acute renal failure: Plan: Likely due to severe dehydration but possible ATN - 2.43 on admit, baseline 1.6 - Lisinopril held - renal fxn initially improved but never returned to baseline - Reviewed BMP on 04/12, creatinine continues to climb, 04/12 creat was 2.45 from 2.36 on 04/11 - Consult placed to nephrology, appreciate assistance - Seen this AM by Dr. Bertrand, obtained CXR d/t ? rales but no acute process noted - Renal fxn finally starting to improve on 04/13 down to 2.2 - Continue IVF and daily BMPs (3) Difficulty swallowing: Plan: - Noted by his over the past 2 months - Patient has history of multiple prior malignancies - CT of the chest/abd/pelvis with no acute changes and no change when compared to previous. - Patient had video swallow study, Speech recommended moist, minced, mildly thick liquids, mouth care ACHS and to follow up with speech upon discharge. - Continue aspiration precautions (4) Paroxysmal atrial fibrillation: Plan: - Stable - Will hold Eliquis for now with his renal failure - HR is currently controlled, continue to monitor on tele - Heparin 5000 units SQ q 12H (5) Hypertension: Plan: - BP stable - Continue to hold lisinopril with acute renal failure (6) MGUS (monoclonal gammopathy of unknown significance): Plan: - Stable - Follows with heme/onc - Family requested getting LDH and CEA added to labs (had order from hematology for this to be drawn) (7) Stage II pressure ulcer of left ankle: Plan: - Care instructions per wound - Santyl rx - Waffle boot - Elevate lower extremities - Apparently was placed on abx at wound care clinic d/t growth of enterococcus + wolfgang but cannot find any record of this - Per , pt is on Ampicillin and Fluconazole. Per wound care team, they rx'd abx but pt never started - Started Ampicillin 250mg q6 + fluconazole 100mg daily on 04/10 (8) Pressure ulcer of right knee: Plan: - Care instructions per wound - Ehsan (9) Elevated troponin: Plan: - Initial high sensitivity trop elevated at 39.9, currently decreased to 36.8, patient continues to deny any chest pain, no acute ST segment or T-wave changes on ECG - Likely due to his acute illness, TRAVIS, andtype II PR due to myocardial demand ischemia - Placed on tele initially but this can be discontinued Plan DNR/DNI Continue PT/OT and speech and wound care Accepted at [facility] for SNF rehab pending auth which was denied by insurance on 04/10. Attempted peer to peer on 04/11, they again denied due to all of issues being chronic. Family is going to appeal and may even consider paying privately. Updated patient's via phone on 04/12. Plan d/w Dr. Mayes. Admission and Anticipated Discharge Date Admission Date: April 06, 2022 Physical Exam Physical Exam: GENERAL: 86 yo thin frail elderly WM. NAD. LUNGS: Clear to auscultation bilaterally. CARDIOVASCULAR: Irreg rhythm, controlled rate. : urostomy noted NEURO: A&Ox2, no neuro deficits. Results & Data Results & Data ([facility]) Vital Signs (Past 12 Hours) Vital Signs Temp Pulse Pulse Resp BP BP Pulse Ox 04/13/22 07:30 36.5 C 83 18 149/83 H 94 04/12/22 20:32 36.9 C 89 18 136/75 96 O2 Del Method 04/13/22 07:30 Room Air 04/12/22 20:32 Room Air PG Care Time/CCT Total # of Minutes Spent Total Time Spent with Patient: Total time spent is greater than 50% in coordination of care (as documented) at patient's floor/unit and/or counseling patient: Coding Level of Care Code 26277 SUB INP/OBS CARE 2/35MIN Diagnoses AMS (altered mental status) R41.82 Acute renal failure N17.9 Difficulty swallowing R13.10 Paroxysmal atrial fibrillation I48.0 Hypertension I10 MGUS (monoclonal gammopathy of unknown significance) D47.2 Stage II pressure ulcer of left ankle L89.522 Pressure ulcer of right knee L89.899 Elevated troponin R77.8
--- NOTE | 2022-04-13 09:04 | Nephrology Progress Note ---
Date of Service April 13, 2022 Assessment & Plan (1) TRAVIS (acute kidney injury): Plan: * Nonoliguric TRAVIS likely related to dehydration in the setting of RAFIA inhibitor therapy * SBP remains 120 - 150 mm Hg. Recommend avoid ACEi therapy. If SBP remains > 150 mm Hg, would then recommend low dose Amlodipine * No hydronephrosis on 03/[address] * Continue gentle hydration * Monitor PRP * Patient is nearing baseline kidney function. No further Nephrology evaluation indicated at this time. Will sign off. Please call if further assistance is needed (2) Stage III chronic kidney disease: Plan: * Baseline creatinine 1.6 mg/dL. Laboratory studies obtained in the fall demonstrate progression of CKD over the past year. CT demonstrating symmetric BL renal atrophy. I suspect this is on the basis on microvascular disease. (3) Hypernatremia: Plan: * Corrected Admission and Anticipated Discharge Date Admission Date: April 06, 2022 Subjective Mr. Espinosa was evaluated in his hospital room this morning. He was sitting in a chair, breathing comfortably on RA and oriented x3. He hopes to be transferred to [facility] for ongoing PT Review of Systems Constitutional: no fever Eyes: no problem reported Ear, Nose, Mouth, Throat: no problem reported Respiratory: no cough and no dyspnea Cardiovascular: no chest pain Gastrointestinal: no abdominal pain, no vomiting and no diarrhea/loose stools Physical Exam Constitutional: + frail appearing; not in distress Eyes: PERRL, conjunctivae normal, anicteric sclerae ENMT: Mouth: + dry oral mucous membranes Neck: trachea midline, no thyromegaly Respiratory: normal respiratory effort, lungs clear to auscultation Cardiovascular: RRR, no murmur, no edema Neurologic: Speech / Cognition: normal speech and normal cognition Results & Data ([facility]) Vital Signs (Past 12 Hours) Vital Signs Temp Pulse Resp BP Pulse Ox O2 Del Method 04/13/22 07:30 36.5 C 83 18 149/83 H 94 Room Air Laboratory Results Laboratory Tests 04/13/22 06:59 Sodium 141 Potassium 4.4 Chloride 113 H Carbon Dioxide 24 BUN 72 H Creatinine 2.20 H Glucose 210 H Calcium 9.3 Diagnostic Findings 04/06/[address]:Moderate left and mild right renal cortical thinning is noted. There is no hydronephrosis. 04/08/22 Fluoroscopic Video Swallow: 1. Multiple consistency aspiration. 2. Please see the speech pathologist report for detailed findings and recommendations. 04/12/22 CXR:No acute process PG Care Time/CCT Total # of Minutes Spent Total Time Spent with Patient: Total time spent is greater than 50% in coordination of care (as documented) at patient's floor/unit and/or counseling patient: Coding Level of Care Code 67059 SUB INP/OBS CARE 3/50MIN Diagnoses TRAVIS (acute kidney injury) N17.9 Stage III chronic kidney disease N18.3 Hypernatremia E87.0
[2022-04-13] MEDS: HEPARIN SOD 5,000 UNIT/0.5 ML VIAL SQ SCH ×2 (09:07→19:49)
[2022-04-13] MEDS: COLLAGENASE OINT 30 GM TUBE EXT PRN (09:07)
[2022-04-13] MEDS: POLYETHYLENE (MIRALAX) 17 GM PACK PO SCH (09:08)
[2022-04-13] MEDS: LANTUS PER UNIT CHARGE SQ SCH (09:15)
[2022-04-13] MEDS: INSULIN ASPART PER UNIT SC SCH ×4 (09:15→21:18)
--- NOTE | 2022-04-13 10:56 | Pharmacy Report ---
Pharmacy Glycemic Short Note 2 - Date of Service April 13, 2022 - Glycemic Short BSG Results (Last 24 hours): 04/12/22 04/12/22 04/12/22 11:06 17:14 20:17 Glucose POC Glucose 299 H 197 H 306 H* 04/12/22 04/13/22 04/13/22 20:19 06:59 08:26 Glucose 210 H POC Glucose 294 H 208 H OUTPATIENT ANTIDIABETIC REGIMEN: * glipizide, tradjenta, metformin ASSESSMENT: * 86 year old admitted with hypoglycemia, AMS, TRAVIS. Patient on oral agents at home for diabetes * Pharmacy consulted for elevated blood sugars. Patient currently ordered novolog. Received total of 8 units yesterday, BSGs in 200s-300s likely related to increase in PO intake * Fasting BSG elevated at 210 mg/dl - will add on conservative dose of Lantus full stress of 1 - 12 units daily * Will tighten novolog and include carb ratio to help cover oral intake PLAN FOR INPATIENT GLYCEMIC CONTROL: * Hold outpatient oral diabetes medications * Basal insulin * Lantus 12 units daily * Bolus insulin * NovoLog per scale ACHS or Q6hrs while NPO * Goal Range: Low 110 mg/dL - High 140 mg/dL * Correction Factor: 35 mg/dL/unit * Nutritional / Prandial insulin per carb ratio of 1 unit per 11 grams CHO consumed
[2022-04-13] MEDS ORDERED: SODIUM CHLORIDE 0.45 % 1,000 ML IV SCH (11:15)
[2022-04-13] MEDS: FLUCONAZOLE 100 MG TAB PO SCH (19:50)
[2022-04-14] MEDS: INSULIN ASPART PER UNIT SC SCH ×6 (00:22→20:52)
[2022-04-14] MEDS: AMPICILLIN 250 MG in SODIUM CHLORIDE 0.9% 50 ML IV SCH ×4 (01:43→20:11)
[2022-04-14] MEDS: HEPARIN SOD 5,000 UNIT/0.5 ML VIAL SQ SCH ×2 (08:44→20:11)
[2022-04-14] MEDS: LANTUS PER UNIT CHARGE SQ SCH (08:46)
[2022-04-14] MEDS: POLYETHYLENE (MIRALAX) 17 GM PACK PO SCH (08:53)
[2022-04-14 10:07] LABS: BUN Creatinine Ratio 30.3 (10-20); Calcium 9.5 mg/dl (8.5-10.1); Creatinine Clr Calc Pharmacy 22.2 ml/min; Est GFR (African American) 28.6 ml/min; Est GFR (Non-African American) 24.7 ml/min; Potassium 4.6 mmol/L (3.5-5.1)
--- NOTE | 2022-04-14 12:12 | Hospitalist Progress Note ---
Date of Service April 14, 2022 Assessment & Plan (1) AMS (altered mental status): Plan: - Patient's acute confusion/AMS was likely multifactorial including hypoglycem ic, acute dehydration, and acute renal failure thus c/w metabolic encephalopathy - Patient currently is A&Ox3 - CT of the head was negative, no focal defect on neuro exam, no signs of infection at this time - Continue to monitor on tele/pulse oximetry, bedrest, fall precautions, aspiration precautions - Continue 5000 units SQ heparin q12h - PT/OT following and recommend SNF less than 3 hours combined PT upon discharge-[facility] insurance [facility] - The degree of AMS that he had upon admission has greatly improved (2) Acute renal failure: Plan: Likely due to severe dehydration but possible ATN - 2.43 on admit, baseline 1.6 - Lisinopril held - renal fxn initially improved but never returned to baseline - Reviewed BMP on 04/12, creatinine continues to climb, 04/12 creat was 2.45 from 2.36 on 04/11 - Consult placed to nephrology, appreciate assistance - Seen by Dr. Bertrand, obtained CXR d/t ? rales but no acute process noted - Renal fxn finally starting to improve on 04/13 down to 2.2, back up to 2.3 on 04/14 - Will reach back out to nephrology, ?new baseline closer to 2? (3) Difficulty swallowing: Plan: - Noted by his over the past 2 months - Patient has history of multiple prior malignancies - CT of the chest/abd/pelvis with no acute changes and no change when compared to previous. - Patient had video swallow study, Speech recommended moist, minced, mildly thick liquids, mouth care ACHS and to follow up with speech upon discharge. - Continue aspiration precautions (4) Paroxysmal atrial fibrillation: Plan: - Stable - Will hold Eliquis for now with his renal failure - HR is currently controlled, continue to monitor on tele - Heparin 5000 units SQ q 12H (5) Hypertension: Plan: - BP stable - Continue to hold lisinopril with acute renal failure (6) MGUS (monoclonal gammopathy of unknown significance): Plan: - Stable - Follows with heme/onc - Family requested getting LDH and CEA added to labs (had order from hematology for this to be drawn) (7) Stage II pressure ulcer of left ankle: Plan: - Care instructions per wound - Santyl rx - Waffle boot - Elevate lower extremities - Apparently was placed on abx at wound care clinic d/t growth of enterococcus + wolfgang but cannot find any record of this - Per , pt is on Ampicillin and Fluconazole. Per wound care team, they rx'd abx but pt never started - Started Ampicillin 250mg q6 + fluconazole 100mg daily on 04/10 (8) Pressure ulcer of right knee: Plan: - Care instructions per wound - Santyl (9) Elevated troponin: Plan: - Initial high sensitivity trop elevated at 39.9, currently decreased to 36.8, patient continues to deny any chest pain, no acute ST segment or T-wave changes on ECG - Likely due to his acute illness, TRAVIS, andtype II W[place] due to myocardial demand ischemia - Placed on tele initially but this can be discontinued Plan DNR/DNI Continue PT/OT and speech and wound care Accepted at [facility] for SNF rehab pending auth which was denied by insurance on 04/10. Attempted peer to peer on 04/11, they again denied due to all of issues being chronic. Family is going to appeal and may even consider paying privately. Updated patient's via phone on 04/12. Case management is working on dc planning. Family still does not yet know if they can afford to pay privately. Continued inpatient stay until safe dc plan can be arranged. Plan d/w Dr. Mayes. Admission and Anticipated Discharge Date Admission Date: April 06, 2022 Subjective Patient seen on daily rounds this morning. He is currently in bed, eating breakfast. No complaints. Hoping to work with PT this morning and be transferred to [facility] to continue therapy. Physical Exam Physical Exam: GENERAL: 86 yo thin frail elderly WM. NAD. LUNGS: Clear to auscultation bilaterally. CARDIOVASCULAR: Irreg rhythm, controlled rate. : urostomy noted NEURO: A&Ox2, no neuro deficits. Results & Data Results & Data ([facility]) Vital Signs (Past 12 Hours) Vital Signs Temp Pulse Resp BP Pulse Ox O2 Del Method 04/14/22 08:01 36.7 C 83 18 140/78 94 Room Air Laboratory Results 04/10/22 05:43 04/14/22 06:47 PG Care Time/CCT Total # of Minutes Spent Total Time Spent with Patient: Total time spent is greater than 50% in coordination of care (as documented) at patient's floor/unit and/or counseling patient: Coding Level of Care Code 95705 SUB INP/OBS CARE 2/35MIN Diagnoses AMS (altered mental status) R41.82 Acute renal failure N17.9 Difficulty swallowing R13.10 Paroxysmal atrial fibrillation I48.0 Hypertension I10 MGUS (monoclonal gammopathy of unknown significance) D47.2 Stage II pressure ulcer of left ankle L89.522 Pressure ulcer of right knee L89.899 Elevated troponin R77.8
[2022-04-14] MEDS: FLUCONAZOLE 100 MG TAB PO SCH (20:11)
[2022-04-15] MEDS: AMPICILLIN 250 MG in SODIUM CHLORIDE 0.9% 50 ML IV SCH ×2 (01:43→08:05)
[2022-04-15] MEDS ORDERED: INSULIN ASPART PER UNIT SC SCH ×2 (07:30→11:30)
[2022-04-15 07:47] LABS: BUN Creatinine Ratio 30.2 (10-20); Calcium 9.6 mg/dl (8.5-10.1); Creatinine Clr Calc Pharmacy 22.8 ml/min; Est GFR (African American) 29.5 ml/min; Est GFR (Non-African American) 25.5 ml/min; Potassium 4.6 mmol/L (3.5-5.1)
[2022-04-15] MEDS: HEPARIN SOD 5,000 UNIT/0.5 ML VIAL SQ SCH (08:05)
[2022-04-15] MEDS: POLYETHYLENE (MIRALAX) 17 GM PACK PO SCH (09:15)
[2022-04-15] MEDS: LANTUS PER UNIT CHARGE SQ SCH (09:15)
--- NOTE | 2022-04-15 09:23 | Pharmacy Report ---
Pharmacy Glycemic Short Note 2 - Date of Service April 15, 2022 - Glycemic Short BSG Results (Last 24 hours): 04/14/22 04/14/22 04/14/22 06:47 11:51 17:20 Glucose 129 H POC Glucose 221 H 65 L* 04/14/22 04/14/22 04/14/22 17:22 18:01 20:29 Glucose POC Glucose 61 L* 86 175 H 04/15/22 04/15/22 06:40 08:07 Glucose 159 H POC Glucose 160 H OUTPATIENT ANTIDIABETIC REGIMEN: * Glipizide 5mg PO daily * Tradjenta 5mg PO daily * Metformin 500mg PO BID * HbA1c: 8.2% (11/22/21) ASSESSMENT: 04/15/22: * Fasting BSG has been stable past couple of days, indicating appropriate basal insulin dosing. * Patient's BSG trends seem to be hyperglycemia pre-lunch with hypoglycemia in the evening. * Novolog parameters adjusted this morning to provide additional carb coverage with breakfast and less carb coverage throughout the rest of the day. Will continue to adjust as indicated. 04/13/22 * 86 year old admitted with hypoglycemia, AMS, TRAVIS. Patient on oral agents at home for diabetes * Pharmacy consulted for elevated blood sugars. Patient currently ordered novolog. Received total of 8 units yesterday, BSGs in 200s-300s likely related to increase in PO intake * Fasting BSG elevated at 210 mg/dl - will add on conservative dose of Lantus full stress of 1 - 12 units daily * Will tighten novolog and include carb ratio to help cover oral intake PLAN FOR INPATIENT GLYCEMIC CONTROL: * Hold outpatient oral diabetes medications * Basal insulin * Lantus 12 units daily * Bolus insulin * NovoLog per scale ACHS or Q6hrs while NPO * Goal Range: Low 110 mg/dL - High 140 mg/dL * Correction Factor: 45 mg/dL/unit * Nutritional / Prandial insulin per carb ratio of 1 unit per 10 grams CHO consumed with breakfast 1 unit per 15 grams CHO consumed with lunch, dinner, and at bedtime
--- NOTE | 2022-04-15 11:56 | Discharge Summary ---
Date of Service April 15, 2022 Admission HPI Per Admitting Provider Raphael is an 86 year old male with a PMH significant for afib on eliquis, HTN, stage III CKD, dyslipidemia, adenocarcinoma of the colon S/P open subtotal colectomy in 2020 (follows with Heme/onc and currently on surveillance), DM II, anemia and MGUS who presented to the [facility] ED on 04/06/22 with complaints of AMS and hypoglycemia. Per the ED staff, the patients woke up this morning and found the patient to not be acting himself and was unable to get him out of bed so she called 911. EMS found him to be hypoglycemic in the 30s, they gave him multiple doses of dextrose but his mental status did not improve. In the ED the patient was found to be afebrile, mildly hypotensive at 94/53, and stable on RA. Labs were remarkable for a WBC WNL, stable Hgb at 10.9, MCV of 104, thrombocytopenia of 119, neutrophil count of 4.56, cr of 2.47 (baseline appears to 1.3-1.5), be glucose of 124, sodium of 146, potassium of 4.5, chloride of 127, AG of 8 with a bicarb of 11, ionized calcium of 1.44, LFTs WNL, initial high sensitivity trop of 39.9, procal of 0.13, UA not suggestive of UTI. CT of the head was read as 1. No acute intracranial findings. 2. No acute calvarial fracture.. Chest xray was read as No change in appearance of the chest. No acute findings. At the time of the exam the patient was lying in bed in no acute distress with his sitting bedside. History was obtained from his due to his current mental status. She states that they patient has been having issues with swallowing/choking over the past 2 months. He has had poor oral intake of solids but has been able to drink liquids without issue. She states that the patient has been following with the wound care clinic for multiple wounds on the BL LE, right hip, and the buttocks. She mentions that the patient was started on an antibiotic 2 days ago sent in from the wound care team, she is not sure what antibiotic it was. The patient has still been taking his antihyperglycemic medications as prescribed despite his poor oral intake. Yesterday he sustained a fall when he stood up from a chair. His states that he landed on his buttocks and did not hit his head. Per his , the patient's baseline mental status is alert and oriented to person, place, close contacts, and normally the month/year. This am upon waking his noticed that the patient was not as alert as he normally was. She attempted to wake him but he seemed very lethargic. He has a urostomy with calderon at baseline due to his previous partial colectomy. He does not have an ostomy and his last bowel movement was approximately 2-3 days ago. His denies any recent hematuria, bloody bowel movements, or melena. We discussed code status at length, the patient is a DNR/DNI and his and daughter would make decisions for him if he could not make them himself. His confirms that he did not have any of his medications prior to coming to the ED today. Principal Diagnosis 1. Acute metabolic encephalopathy - resolved 2. TRAVIS on CKD 3. Dysphagia 4. Elevated trop d/t demand ischemia Discharge Exam GENERAL: 86 yo thin frail elderly WM. NAD. LUNGS: Clear to auscultation bilaterally. CARDIOVASCULAR: Irreg rhythm, controlled rate. : urostomy noted, draining pale yellow urine NEURO: A&Ox3, no neuro deficits. Discharge Data Allergies Allergy/AdvReac Type Severity Reaction Status Date / Time No Known Drug Allergies Allergy Verified 04/01/22 11:17 Consultations 04/06/22 11:49 ED Decision to Admit Stat 04/11/22 09:54 Consult Nephrology Routine Ordered Studies Head CT 04/06/22 08:44 CT OF THE HEAD WITHOUT CONTRAST CLINICAL HISTORY: Fall. Altered mental status. COMPARISON STUDY: No previous studies for comparison. CT DOSE: 844.62 mGy.cm TECHNIQUE: Helical axial images of the head were obtained without IV contrast. Automated exposure control was utilized for the study. A dose lowering technique was utilized adhering to the principles of ALARA. FINDINGS: This study is mildly compromised by motion artifact. Atrophy and presumed small vessel disease is noted. No acute intracranial hemorrhage, midline shift or mass effect is present. The ventricular system is unremarkable. The basal cisterns are patent. No extra-axial collections are present. There are no findings to suggest acute dural sinus thrombosis or acute territorial infarct. No significant calvarial abnormalities are present. Visualized portions of the sinuses and mastoid air cells are clear. IMPRESSION: 1. No acute intracranial findings. 2. No acute calvarial fracture. ACT 112: Negative or not required by law. Electronically signed by: Den Lanza M.D. 04/06/2022 9:25 AM Chest X-Ray 04/06/22 08:45 XR chest 1V portable CLINICAL HISTORY: Altered mental status. COMPARISON STUDY: Chest radiograph November 07, [address] January 28, 2022. FINDINGS: Bilateral shoulder osteoarthritis with elevation of the humeral heads is incidentally noted. There is no pneumothorax or pleural effusion. Cardiomegaly is unchanged. No evidence for pulmonary edema. Innumerable pulmonary nodules indicating a previous granulomatous process. There is no consolidation to suggest pneumonia. IMPRESSION: No change in appearance of the chest. No acute findings. ACT 112: Negative or not required by law. Electronically signed by: Den Lanza M.D. 04/06/2022 9:01 AM Abdomen/Pelvis CT 04/06/22 12:18 CT OF THE ABDOMEN AND PELVIS WITHOUT CONTRAST CLINICAL HISTORY: Altered mental status hx of cancer COMPARISON STUDY: CT of the abdomen and pelvis January 28, 2022. TECHNIQUE: Axial images of the abdomen and pelvis were obtained without IV contrast. Images were reviewed in the axial, sagittal, and coronal planes. Automated exposure control was utilized for the study. A dose lowering technique was utilized adhering to the principles of ALARA. FINDINGS: No pneumatosis, free air or portal venous gas is present. Evaluation of the abdomen and pelvis is suboptimal as unenhanced exam. Unenhanced images of the liver, spleen, adrenal glands, kidneys and pancreas are unchanged. There is no biliary or pancreatic ductal dilatation. Moderate left and mild right renal cortical thinning is noted. There is no hydronephrosis. There is no evidence for a bowel obstruction. A moderate amount stool is noted within the distal colon and rectum. Colonic diverticulosis is present. There is no evidence for acute diverticulitis. There are postoperative findings consistent with right hemicolectomy, cystectomy, prostatectomy and right lower quadrant ileal conduit and urostomy. There is no lymphadenopathy. No fluid collection is present. There is no ascites. There are no acute fractures within the visualized skeletal structures. IMPRESSION: 1. No acute process within the abdomen or pelvis on unenhanced exam. 2. No significant change since CT of January 28, 2022. Stable postoperative findings. 3. Moderate amount of stool within the colon and rectum. 3. Colonic diverticulosis. No evidence for acute diverticulitis. ACT 112: Negative or not required by law. Electronically signed by: Den Lanza M.D. 04/06/2022 1:[address] 04/06/22 12:18 CT OF THE CHEST WITHOUT IV CONTRAST CLINICAL HISTORY: AMS hx of cancer, difficulty swallowing COMPARISON STUDY: Chest CT January 28, 2022. Chest radiograph performed earlier today. CT DOSE: 1050.79 mGy.cm TECHNIQUE: Axial images of the chest were obtained without IV contrast. Images were reviewed in the axial, sagittal, and coronal planes. IV contrast was not administered for this examination. Automated exposure control was utilized for the study. A dose lowering technique was utilized adhering to the principles of ALARA. FINDINGS: No enlarged axillary, mediastinal or hilar lymph nodes are present. A water attenuation posterior mediastinal 3.5 cm lesion, adjacent to the mid esophagus and aorta is unchanged since initial chest CT of April 09, 2010. This favors a duplication cyst. Mild cardiomegaly and extensive coronary artery calcification is present. There is no pericardial effusion. There is no pneumothorax. Trace right pleural fluid is present. Innumerable calcified nodules within the lungs are again noted. These remain unchanged. No new nodules are present. Subpleural opacities represent atelectasis. No consolidation to suggest pneumonia. Abdomen and pelvis CT will be reported separately. No acute fractures within the bony thorax are present. There is mild paraseptal emphysema. No change in appearance of the chest since CT of January 28, 2022. There are degenerative changes of both shoulders with elevation of the humeral heads. IMPRESSION: No acute findings within the chest. No change since chest CT of January 28, 2022. ACT 112: Negative or not required by law. Electronically signed by: Den Lanza M.D. 04/06/2022 12:59 PM Chest X-Ray 04/06/22 14:23 XR chest 1V portable CLINICAL HISTORY: NG Tube Check COMPARISON STUDY: Chest radiograph and chest CT performed earlier today FINDINGS: Innumerable calcified pulmonary nodules are noted. There is no pneumothorax or pleural effusion. Tip of nasogastric tube projects over the distal body of the stomach. Cardiomegaly is noted. No evidence for pulmonary edema. IMPRESSION: Tip of nasogastric tube projects over the distal body of the stomach. ACT 112: Negative or not required by law. Electronically signed by: Den Lanza M.D. 04/06/2022 2:53 PM Videofluoroscopic Swallow 04/08/22 13:00 FL video swallow CLINICAL HISTORY: 86 years-old Male with assess for aspiration. Dysphasia with possible aspiration TECHNIQUE: Video fluoroscopic evaluation of swallowing was performed in the AP and lateral projections by the speech pathology staff. The patient is fed thin liquid, mildly thick, pudding and cracker with paste consistencies. FLUOROSCOPY TIME: 5.2 minutes. COMPARISON STUDY: Chest CT 04/06/2022 FINDINGS: Silent aspiration with thin liquid barium. Additional aspiration with mildly thick consistency. Vallecular retention with pudding consistency. Mild soft tissue dysmotility is noted throughout the exam. Calcific granulomata of the lungs redemonstrated. IMPRESSION: 1. Multiple consistency aspiration. 2. Please see the speech pathologist report for detailed findings and recommendations. ACT 112: Negative or not required by law. Electronically signed by: Parish Robles M.D. 04/08/2022 2:13 PM Chest X-Ray 04/12/22 09:03 XR chest 1V portable HISTORY: 86 years-old Male rales acute shortness of breath COMPARISON: 04/06/2022 TECHNIQUE: AP view of the chest FINDINGS: Cardiac mediastinal and hilar silhouettes are unchanged. Innumerable calcified pulmonary granulomata redemonstrated within a mid to upper lung zone prominent distribution. No pneumothorax, large pleural effusion or overt pulmonary edema. No airspace consolidation typical for pneumonia. Degenerative changes of the shoulders and spine. IMPRESSION: No acute process. ACT 112: Negative or not required by law. The above report was generated using voice recognition software. It may contain grammatical, syntax or spelling errors. Electronically signed by: Parish Robles M.D. 04/12/2022 9:53 AM Hospital Course (1) AMS (altered mental status): - Patient's acute confusion/AMS was likely multifactorial including hypoglycemic, acute dehydration, and acute renal failure thus c/w metabolic encephalopathy - Patient currently is A&Ox3 - CT of the head was negative, no focal defect on neuro exam, no signs of infection at this time - PT/OT following and recommended SNF less than 3 hours combined PT upon discharge-[facility] insurance [facility], family appealed and opted to pay privately - His mentation has waxed and waned during his stay, but for the most part has remained oriented at least x2, but most days x3 - Metabolic encephalopathy has resolve and he is medically suitable for dc (2) Acute renal failure: Likely due to severe dehydration but possible ATN - 2.43 on admit with previous baseline 1.6 - Lisinopril held - renal fxn initially improved but never returned to baseline - Reviewed BMP on 04/12, creatinine uptrending again, 04/12 creat was 2.45 from 2.36 on 04/11 - Consult placed to nephrology, appreciate assistance, fluids ordered - Seen by Dr. Bertrand on 04/12, obtained CXR d/t ? rales but no acute process noted - Received at least 3-4L (run over several hours) over the past few days, renal fxn slowly approaching normal, today is 2.25 - Continue to avoid ACEi or ARBs for BP management, if needed, could add low dose Amlodipine (3) Hypoglycemia: - Likely due to his poor oral intake, continue used of antihyperglycemics, weight loss and acute renal failure - Glucose is currently stable, hold all home antihyperglycemic agents at this time - Was placed on sliding scale insulin upon admit with AC/HS blood sugar checks - Pt developed hyperglycemia on 04/13 - pharmacy consult placed for glycemic management - Started on Lantus 12 units daily - noted to have some hypoglycemia in the late afternoon/dinner time - Will reduce Lantus to 8 units daily, continue monitoring accuchecks AC/HS, may need to add sliding scale analog coverage - metformin contraindicated d/t crcl <30, could consider resuming Tradjenta 5mg daily since it does not require dose adjustment in renal failure (4) Elevated troponin: - Initial high sensitivity trop elevated at 39.9, currently decreased to 36.8, patient continues to deny any chest pain, no acute ST segment or T-wave changes on ECG - Likely due to his acute illness, TRAVIS, andtype II AR due to myocardial demand ischemia - Placed on tele initially but this can be discontinued (5) Difficulty swallowing: - Noted by his over the past 2 months - Patient has history of multiple prior malignancies - CT of the chest/abd/pelvis with no acute changes and no change when compared to previous. - Patient had video swallow study, Speech recommended moist, minced, honey thick liquids, mouth care ACHS and to follow up with speech upon discharge. - Continue aspiration precautions (6) Paroxysmal atrial fibrillation: - Stable with controlled HR - Resume Eliquis 2.5mg BID upon d/c (7) Hypertension: - Lisinopril held d/t TRAVIS, avoid resumption of ACEi or ARBs as above - BP has been stable off of Lisinopril (8) MGUS (monoclonal gammopathy of unknown significance): - Stable - Follows with heme/onc - Family requested getting LDH and CEA added to labs (had order from hematology for this to be drawn) - LDH 138 and CEA 3.6 (9) Stage II pressure ulcer of left ankle: - Care instructions per wound - Santyl rx - Waffle boot - Elevate lower extremities - Apparently was placed on abx at wound care clinic d/t growth of enterococcus + wolfgang but cannot find any record of this - Per , pt is on Ampicillin and Fluconazole. Per wound care team, they rx'd abx but pt never started - Started Ampicillin 250mg q6 + fluconazole 100mg daily on 04/10 --> convert Ampicillin to Amoxicillin 500mg BID x 5 more days (next dose / before bed), continue Fluconazole 100mg daily x 5 days (10) Pressure ulcer of right knee: - Care instructions per wound - Santyl Plan Medically and hemodynamically stable for discharge to SNF for acute rehab, PT/OT, ST, and wound care. Will need urostomy managed also during his stay (h/o bladder ca). Complete course of antibiotics. Follow up with PCP and wound care upon d/c from SNF. Above plan d/w Dr. Mayes who has also seen and evaluated this patient and agrees with aforementioned. Total Time Total Time Spent Total Time Spent (In Minutes): >30 minutes Discharge Plan Discharge Items Patient Disposition: Transfer Long-Term Fac Reason For Visit: AMS Discharge Diagnosis: confusion, generalized weakness, dehydration, difficulty swallowing Activity: As commented below Activity Comment: with assistance of walker as tolerated Non-emergency contact: Primary Care Provider Call non-emergency contact if: you have any medication questions Follow-up/Referrals: Rohrbacker,Carlito J., INSTRUMENTATION INSTRUCTOR [Primary Care Provider] - Diet: Carb Consistent or DM2 Diet Texture: Mechanical soft (ground) Liquid Consistency: Honey thick Addtl Attending Provider Instructions: Patient was hospitalized due to confusion which was felt to be related to low blood sugars and dehydration causing renal failure. This was resolved with stopping his Lisinopril and providing IV hydration. Glipizide, Tradjenta, and Metformin have been discontinued. He was transitioned to insulin during his stay in the hospital when his blood sugars started running high. He will be discharged with Lantus 8 units daily, continue checking blood sugars before meals and at bedtime-will likely need short acting insulin coverage with meals. He was also noted to have difficulty swallowing, was assessed by speech therapy and underwent a video swallow study and speech recommended a minced and moist diet along with mildly thickened liquids. He is to have mouth care performed before meals and bedtime and speech therapy should follow up with him upon his arrival to [facility]. He has been seen by the kidney specialist during his stay in the hospital and it was advised to AVOID iftikhar-inhibitors for blood pressure management. Therefore, Lisinopril has been STOPPED. He should continue physical and occupational therapy at [facility]. He will also need wound care management for pressure ulcer of left ankle and right knee. Wear a waffle boot when sitting on left foot. Complete course of antibiotics: Amoxicillin and Fluconazole, as directed. Advise primary care follow up and wound care follow up after discharged from [facility]. Pending Studies at Discharge: No Stand-Alone Forms: My [facility] Skilled Items Patient informed of condition?: Yes DNR: Yes Discharge Level of Care: Skilled Communicable Disease: No Discharge Prognosis: Improving Lines: None Urinary Catheter: Yes Medications and DC Order Prescriptions: New fluconazole 100 mg Tablet 100 mg PO DAILY Qty: 5 0RF polyethylene glycol 3350 [Miralax] 17 gram Powder In Packet 17 g PO DAILY Qty: 30 0RF amoxicillin 500 mg capsule 500 mg PO BID Qty: 11 0RF insulin glargine [Lantus U-100 Insulin] 100 unit/mL Solution 8 unit subcut DAILY Qty: 10 0RF Continued famotidine 20 mg tablet 20 mg PO QAM Qty: 90 1RF Eliquis 2.5 mg tablet 2.5 mg PO BID Qty: 180 1RF Rx Instructions: [id number] atorvastatin [Lipitor] 40 mg tablet 40 mg PO QAM Qty: 90 1RF acetaminophen 500 mg capsule 500 mg PO Q6H PRN (Reason: Pain) ascorbate calcium (vitamin C) 500 mg tablet 500 mg PO DAILY Macular Health Formula 5-1-7.5 mg capsule 1 cap PO QAM coenzyme Q10 [Co Q-10] 100 mg capsule 100 mg PO QAM Qty: 30 cyanocobalamin (vitamin B-12) [Vitamin B-12] 100 mcg tablet 100 mcg PO QAM Rx Instructions: 2500mcg PO daily; fexofenadine [Ally Allergy] 180 mg Tablet 180 mg PO DAILY PRN (Reason: Allergy Symptoms) zinc acetate 50 mg (zinc) Capsule 50 mg PO DAILY Neuriva Original 50-50 mg Tablet,Chewable 1 tab PO HS Discontinued metformin 500 mg tablet extended release 24 hr 500 mg PO BID Qty: 180 2RF Rx Instructions: start with 1 tablet daily x7 days then on day 8 start 1 tablet twice a day lisinopril 10 mg tablet 10 mg PO DAILY Qty: 90 3RF Tradjenta 5 mg tablet 5 mg PO DAILY Qty: 90 3RF glipizide 5 mg tablet extended release 24hr 5 mg PO QAM Qty: 90 1RF glipizide 5 mg tablet extended release 24hr 5 mg PO DAILY Qty: 14 0RF Rx Instructions: waiting on mail order Discharge Orders: Discharge Order (Routine); Ordered 04/15/22 Ordered By: Johanna Ramírez Admission Data Admit Date/Time: 04/06/22 12:17 Attending Provider: Familia Mayes Admit Provider: Kenroy Graves Primary Care Provider: Carlito Caro Other Providers: [place] ; Kenroy Graves ; Olman Locke Other Interventions: Discharge Summary Assessment (RN) Last Done: 04/15/22 10:28 Coding Level of Care Code HOSP INP/OBS DISCH >30 MIN Diagnoses AMS (altered mental status) R41.82 Acute renal failure N17.9 Hypoglycemia E16.2 Elevated troponin R77.8 Difficulty swallowing R13.10 Paroxysmal atrial fibrillation I48.0 Hypertension I10 MGUS (monoclonal gammopathy of unknown significance) D47.2 Stage II pressure ulcer of left ankle L89.522 Pressure ulcer of right knee L89.899
== END 2022-04-15 12:15 | DRG 637 ==
LOC: ED 08:35 → 2S 12:17 → SUATTDRO 12:17 → 2S 14:44 → 3W 04-12 12:58

== ENCOUNTER 2022-05-27 12:57 | Inpatient (IN) ==
[2022-05-27] MEDS ORDERED: SODIUM CHLORIDE 0.9% 1000ML 1,000 ML IV SCH (14:00)
--- NOTE | 2022-05-27 14:14 | XRay Report ---
XR chest 1V portable CLINICAL HISTORY: neuro deficit, acute stroke suspected TECHNIQUE: Single frontal radiograph of the chest was obtained. Comparison: Comparison is made to chest radiograph 04/12/2019 FINDINGS: No lines and tubes are seen. Calcified aortic knob is seen. Interval calcifications are seen in the l ungs favoring the upper lungs. No evidence of pleural effusion or pneumothorax. IMPRESSION: No acute chest disease. ACT 112: Negative or not required by law. Electronically signed by: Ted Loaiza M.D. 05/27/2022 2:13 PM
[2022-05-27 14:31] LABS: Basophils # (auto) 0.02 K/uL (0-0.2); Basophils % (auto) 0.3 %; Eosinophils # (auto) 0.09 K/uL (0-0.50); Eosinophils % (auto) 1.5 %; Hematocrit (blood only) 35.2 % (42.0-52.0); Hemoglobin 11.5 g/dl (14.0-18.0); Immature Granulocytes # (auto) 0.03 K/uL (0.01-0.20); Immature Granulocytes % (auto) 0.5 %; Lymphocytes # (auto) 0.87 K/uL (1.2-3.4); Lymphocytes % (auto) 14.9 %; Mean Corpuscular Hemoglobin 35.3 pg (25.0-34.0); Mean Corpuscular Hgb Conc 32.7 g/dL (32.0-36.0); Mean Platelet Volume 11.9 fL (9.4-12.4); Monocytes % (auto) 5.1 %; Neutrophils # (auto) 4.53 K/uL (1.40-6.50); Neutrophils % (auto) 77.7 %; Platelet Count 124 K/uL (130-400); RDW Coefficient of Variation 15.5 % (11.5-14.5); RDW Standard Deviation 61.8 fL (36.4-46.3); Red Blood Count 3.26 M/uL (4.70-6.10); White Blood Count 5.84 K/ul (4.8-10.8)
[2022-05-27 14:40] LABS: INR 1.1 (0.9-1.1); Partial Thromboplastin Ratio 0.9; Partial Thromboplastin Time 25.8 Seconds (21.0-31.0); Prothrombin Time 11.4 Seconds (9.0-12.0)
[2022-05-27 14:56] LABS: Albumin Globulin Ratio 1.5 (0.9-2); BUN Creatinine Ratio 47.3 (10-20); Bilirubin,Total 0.4 mg/dl (0.2-1.0); Calcium 9.7 mg/dl (8.5-10.1); Creatinine Clr Calc Pharmacy 21.2 ml/min; Est GFR (African American) 26.9 ml/min; Est GFR (Non-African American) 23.2 ml/min; Globulin 2.7 gm/dl (2.5-4.0); Magnesium 2.2 mg/dl (1.7-2.4); Potassium 3.7 mmol/L (3.5-5.1); Total Protein 6.7 gm/dl (6.0-8.3); Troponin I High Sensitivity 41.7 pg/ml (0-20)
--- NOTE | 2022-05-27 16:07 | CT Scan Report ---
CT SCAN OF THE BRAIN WITHOUT IV CONTRAST CLINICAL HISTORY: Neurological deficit. Strokelike symptoms. Left lower extremity weakness COMPARISON STUDY: CT of the brain dated 04/06/2022. TECHNIQUE: Unenhanced axial CT scan of the brain is performed from the vertex to the skull base. A do se lowering technique was utilized adhering to the principles of ALARA. CT DOSE: 821.00 mGycm FINDINGS: Brain parenchyma: There is age-related involutional change noting mild to moderate subcortical and pe riventricular microangiopathic disease. There is no hemorrhage, mass effect, or evidence of acute ter ritorial ischemia by CT criteria. Izaguirre-white matter differentiation is preserved. No extra-axial flui d collection is seen. Ventricles, sulci, cisterns: Prominent secondary to involutional change. Intracranial vasculature: There is atherosclerotic calcification of the cavernous carotid and vertebr al artery. Calvarium: Unremarkable. Sinuses and mastoids: There is trace mucosal thickening within the maxillary antra. The remaining par anasal sinuses are clear. The mastoid air cells are well pneumatized. Orbits: The bony orbits are grossly intact. There are bilateral ocular lens implants. IMPRESSION: There is no hemorrhage, mass effect, or evidence of acute territorial ischemia by CT sania patino. ACT 112: Negative or not required by law. Electronically signed by: Brian Dong M.D. 05/27/2022 4:05 PM
[2022-05-27 17:38] LABS: Appearance Urine Cloudy (Clear); Bacteria Urine Automated 2+ (Negative); Bilirubin Urine Negative (Negative); Blood Urine 1+ (Negative); Color Urine Yellow; Epithelial Cell Urine Auto >30 /lpf (0-5); Glucose Urine UA Negative (Negative); Ketones Urine Negative (Negative); Leukocyte Esterase Urine 2+ (Negative); Nitrite Urine Negative (Negative); Protein Urine 1+ (Negative); RBC Urine Automated 0-4 /hpf (0-4); Specific Gravity Urine 1.012 (1.000-1.030); Urobilinogen Urine Negative (Negative)
--- NOTE | 2022-05-27 17:50 | Emergency Department Note ---
Impression & Plan Left leg weakness, Acute hypernatremia, Hyperglycemia, Acute uremia ED Provider Note INFORMANT: Patient and family ED PROVIDER(S): Miguel A Rivera MD CHIEF COMPLAINT: Weakness PLAN: Disposition: Admitted Condition: Good Outpatient prescription management: none Referral: None MEDICAL DECISION MAKING: Patient presented because of weakness. He was beyond the window for acute intervention regarding thrombolysis and the patient is on anticoagulation. He underwent a work-up. He had an elevated creatinine and therefore angiography could not be performed he did have a head CT which was negative. Patient's blood work revealed significant hyperglycemia which has been consistent with the patient's values over 300. The patient's troponin was borderline. He had a mild anemia and decreased platelets. His chemistry panel revealed a significant elevation of his sodium as well as his BUN concerning for uremia. He appears to be somewhat dehydrated. The patient did receive IV normal saline. Urinalysis was performed and was concerning for infection. He did receive a dose of IV Rocephin. I discussed further management in the hospital with the patient and family. They were in agreement. [facility] Patient was evaluated in the ER and admitted for further management Discussed with manager telemetry. After review of the information above and other included data, I feel the patient requires admission. Triage Nursing notes reviewed and agree them. Vital Signs: reviewed and remarkable for no significant abnormalities Prior /Outside records reviewed: none Differential diagnosis: Infection, dehydration, metabolic abnormality, hypo/hyperglycemia, electrolyte disturbance, anemia, hypoxia, cardiac sources, intracerebral event, toxicologic, neurologic, as well as other pathologies. Diagnostics, as interpreted by me: ECG: Twelve-lead ECG reveals a atrial fibrillation 87 bpm. Low voltage QRS. Poor R progression. PVCs present. Cardiac Monitoring: Cardiac monitoring ordered by me: The patient was placed on continuous cardiac monitoring and observed. It revealed atrial fibrillation at 92 beats per minute without ectopy or evidence of dysrhythmia. Medical decision rules: none Imaging studies: Head CT: A noncontrast CT scan of the head was performed and was negative for tumor, fracture, intracranial hemorrhage, or other acute pathology. Chest x-ray. Findings: A chest x-ray was performed and revealed no pneumothorax, effusion, infiltrate, pulmonary edema, free air under the diaphragm, or wide mediastinum. Impression: No acute disease. HPI: The patient is a 86year old male with history of A-fib who presents to the Emergency Room with complaints of left leg weakness. Patient is anticoagulated on Eliquis. He reportedly went to bed last night was doing well. He woke up this morning around 6 AM and noted discomfort in the left leg and it was not working right. noted that the patient was leaning towards the le ft.Patient's daughter does note that they have been doing relatively well eating and drinking given the patient does require nectar thick. Patient has been sleeping a lot but the states as not new. He has hyperglycemia but was refusing to take insulin shots and his primary clinic was aware and he typically runs in the 300s. The patient has taken no new medication for relieving factors. Current pain is rated as 0/10. Pt denies LOC, headache, fevers, chills, diaphoresis, visual changes, neck pain, chest pain, breathing difficulties, nausea, vomiting, abdominal pain, back pain, melena, hematochezia, urinary symptoms, numbness, lymphadenopathy, rash, or other complaints. PAST MEDICAL HISTORY: See Below, fibrillation, anticoagulated, TRAVIS, renal insufficiency PAST SURGICAL HISTORY: See Below, SOCIAL HISTORY: See Below, HOME MEDICATIONS: See Below ALLERGIES: See Below VITALS: See Below PHYSICAL EXAMINATION: GENERAL: Awake, alert, well-appearing, in no distress HENT: Normocephalic, atraumatic. Oropharynx unremarkable. EYES: Normal conjunctiva. Sclera non-icteric. NECK: Inspection normal. Non-tender. Supple. No nuchal rigidity. FROM. No masses. RESPIRATORY: Clear to auscultation. No wheezes. No rales. Normal respiratory effort. CARDIAC: Normal rate. Normal rhythm. No murmurs. No rubs. Extremities warm and well perfused. Pulses equal. No JVD. GI: Soft, non-distended. No tenderness to palpation. No rebound or guarding. No masses. RECTAL: Deferred. MUSCULOSKELETAL: Atraumatic. Chest examination reveals no tenderness. The back is symmetrical on inspection without obvious abnormality. There is no CVA tenderness to palpation. No joint edema. LOWER EXTREMITIES: Calves are equal size bilaterally and non-tender. No edema. No discoloration. NEURO: Very sleepy but otherwise normal sensorium. 4-5 strength in the left leg noted. Minimal drift in the left leg. Negative straight leg raise. No drift in the upper extremities. No sensory deficits. SKIN: No rash or jaundice noted. Past Med/Surg History Medical History Allergic rhinitis AMD (age related macular degeneration) Anemia Chronic osteoarthritis Diabetes mellitus with kidney complication Dyslipidemia Hypertension MGUS (monoclonal gammopathy of unknown significance) Osteopenia Peripheral neuropathy Premature ventricular contractions Proteinuria Stage III chronic kidney disease Thrombocytopenia 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) Venous insufficiency Vitamin D deficiency Surgical History H/O colectomy (09/27/20) History of total cystectomy (05/2010) S/P Mohs surgery for basal cell carcinoma (04/2020) Family History Father Myocardial infarction Denies family history of Ovarian cancer Prostate cancer Breast cancer Colorectal cancer Social History Smoking Status: Never smoker Age Started Using Tobacco: 16; Age Quit Using Tobacco: 22; Second Hand Exposure: No; Hx Alcohol Use: Yes Alcohol type: beer Alcohol Intake Frequency: Monthly or Less Hx Substance Use: No Preferred Language: Serbian Communication Ability: Effective Visual Impairment: No Limitations Hearing Ability: Hard of Hearing Bead Filler Required: No Beliefs That Will Affect Care: None marital status: Current Living Situation: Spouse current occupational status: retired How many Children do You have: 3 Feels Safe at Home: Yes Childhood Exposure to Second-Hand Smoke: Yes Diet Comment: regular caffeine: No during the past year weight has: remained stable Dental Care, Regularly: Yes Physical Activity Frequency: Daily Seatbelt Use: always Sunscreen Use: Yes Assistive Devices: Cane, Hospital Bed and Walker Allergies Allergies Allergy/AdvReac Type Severity Reaction Status Date / Time No Known Allergies Allergy Verified 05/27/22 16:55 Home Meds Home Medications Medication Instructions Recorded Confirmed coenzyme Q10 100 mg capsule (Co 100 mg PO QAM #30 caps 10/19/18 05/27/22 Q-10) [id number] 5 mg-zeaxanth 1 cap PO QAM 10/19/18 05/27/22 1 mg-bilberry 7.5 mg-herbal capsule ([facility] Formula) fexofenadine 180 mg tablet 180 mg PO DAILY PRN Allergy 09/18/20 05/27/22 (Ally Allergy) Symptoms acetaminophen 500 mg capsule 500 mg PO Q6H PRN Pain 12/10/20 05/27/22 ascorbate calcium (vitamin C) 500 500 mg PO DAILY 12/10/20 05/27/22 mg tablet cyanocobalamin (vitamin B-12) 100 100 mcg PO QAM 12/10/20 05/27/22 mcg tablet (Vitamin B-12) coffee extract 50 mg-phosphatidyl 1 tab PO HS 04/06/22 05/27/22 serine 50 mg chewable tablet (Neuriva Original) zinc acetate 50 mg (zinc) capsule 50 mg PO DAILY 04/06/22 05/27/22 Previous Rx's Medication Instructions Recorded apixaban 2.5 mg tablet (Eliquis) 2.5 mg PO BID #180 tabs 02/13/22 atorvastatin 40 mg tablet (Lipitor) 40 mg PO QAM #90 tabs 03/19/22 fluconazole 100 mg tablet 100 mg PO DAILY 7 days #7 tabs 04/29/22 linagliptin 5 mg tablet (Tradjenta) 5 mg PO DAILY #90 tabs 04/29/22 polyethylene glycol 3350 17 gram 17 g PO DAILY PRN constipation #30 04/29/22 oral powder packet (Miralax) ea famotidine 20 mg tablet 20 mg PO QAM #90 tabs 05/07/22 Results & Data (ED) Vital Signs Vital Signs - 24 hr 05/27/22 13:10 05/27/22 13:21 05/27/22 13:07 Temperature 36.6 C Temperature Source Oral Pulse Rate 90 92 H 94 H Pulse Rate from SpO2 Sensor Pulse Rhythm Regular Respiratory Rate 24 17 Respiratory Effort / Characteristics Non-Labored Spontaneous Respiratory Depth Normal Respiratory Pattern Regular Blood Pressure 135/69 Blood Pressure Mean 91 Pulse Oximetry 99 Oxygen Delivery Method Room Air Sepsis Recent Fever Within 48 Hours No Sepsis New/Unexplained Change in Mental Status N/A Sepsis Action Taken by Nursing No Action Required 05/27/22 13:30 05/27/22 14:00 05/27/22 14:00 Temperature Temperature Source Pulse Rate 88 88 Pulse Rate from SpO2 Sensor 85 Pulse Rhythm Respiratory Rate 19 16 Respiratory Effort / Characteristics Respiratory Depth Respiratory Pattern Blood Pressure 139/88 Blood Pressure Mean 105 Pulse Oximetry 98 Oxygen Delivery Method Sepsis Recent Fever Within 48 Hours Sepsis New/Unexplained Change in Mental Status Sepsis Action Taken by Nursing 05/27/22 14:30 05/27/22 15:00 05/27/22 15:30 Temperature Temperature Source Pulse Rate 97 H 85 82 Pulse Rate from SpO2 Sensor 84 Pulse Rhythm Respiratory Rate 12 14 14 Respiratory Effort / Characteristics Respiratory Depth Respiratory Pattern Blood Pressure 127/75 Blood Pressure Mean 92 Pulse Oximetry 100 Oxygen Delivery Method Sepsis Recent Fever Within 48 Hours Sepsis New/Unexplained Change in Mental Status Sepsis Action Taken by Nursing 05/27/22 16:00 05/27/22 17:19 Temperature Temperature Source Pulse Rate 85 92 H Pulse Rate from SpO2 Sensor Pulse Rhythm Respiratory Rate 22 Respiratory Effort / Characteristics Respiratory Depth Respiratory Pattern Blood Pressure 142/74 H Blood Pressure Mean 96 Pulse Oximetry Oxygen Delivery Method Sepsis Recent Fever Within 48 Hours Sepsis New/Unexplained Change in Mental Status Sepsis Action Taken by Nursing Laboratory Data 05/27/22 14:09 05/27/22 14:09 Lab Results 05/27/22 05/27/22 05/27/22 Range/Units 14:09 14:09 14:09 WBC 5.84 (4.8-10.8) K/ul RBC 3.26 L (4.70-6.10) M/uL Hgb 11.5 L (14.0-18.0) g/dl Hct 35.2 L (42.0-52.0) % MCV 108.0 H (80.0-100.0) fL MCH 35.3 H (25.0-34.0) pg MCHC 32.7 (32.0-36.0) g/dL RDW Std Deviation 61.8 H (36.4-46.3) fL RDW Coeff of Tasneem 15.5 H (11.5-14.5) % Plt Count 124 L (130-400) K/uL MPV 11.9 (9.4-12.4) fL Immature Gran % (Auto) 0.5 % Neut % (Auto) 77.7 % Lymph % (Auto) 14.9 % [place] % (Auto) 5.1 % Eos % (Auto) 1.5 % Baso % (Auto) 0.3 % Neut # (Auto) 4.53 (1.40-6.50) K/uL Lymph # (Auto) 0.87 L (1.2-3.4) K/uL [place] # (Auto) 0.30 (0.11-0.59) K/uL Eos # (Auto) 0.09 (0-0.50) K/uL Baso # (Auto) 0.02 (0-0.2) K/uL Immature Gran # (Auto) 0.03 (0.01-0.20) K/uL PT 11.4 (9.0-12.0) Seconds INR 1.1 (0.9-1.1) APTT 25.8 (21.0-31.0) Seconds PTT Ratio 0.9 Sodium (136-145) mmol/L Potassium (3.5-5.1) mmol/L Chloride (98-107) mmol/L Carbon Dioxide (21-32) mmol/L Anion Gap (3-11) BUN (6-23) mg/dl Creatinine (0.6-1.4) mg/dl Est Cr Clr Drug Dosing ml/min Est GFR ( Amer) ml/min Est GFR (Non-Af Amer) ml/min BUN/Creatinine Ratio (10-20) Glucose (70-99(Fasting)) mg/dl POC Glucose (70-99) mg/dl Lactate (0.4-2.0) mmol/L Calcium (8.5-10.1) mg/dl Magnesium (1.7-2.4) mg/dl Total Bilirubin (0.2-1.0) mg/dl AST (13-39) U/L ALT (7-52) U/L Alkaline Phosphatase (34-104) U/L Troponin I High Sens (0-20) pg/ml Total Protein (6.0-8.3) gm/dl Albumin (3.4-5.0) gm/dl Globulin (2.5-4.0) gm/dl Albumin/Globulin Ratio (0.9-2) Urine Color Urine Appearance (Clear) Urine pH (4.5-7.5) Ur Specific [place] (1.000-1.030) Urine Protein (Negative) Urine Glucose (UA) (Negative) Urine Ketones (Negative) Urine Blood (Negative) Urine Nitrite (Negative) Urine Bilirubin (Negative) Urine Urobilinogen (Negative) Ur Leukocyte Esterase (Negative) Urine WBC (Auto) (0-5) /hpf Urine RBC (Auto) (0-4) /hpf U Hyaline Cast (Auto) (0-5) /lpf U Epithel Cells (Auto) (0-5) /lpf Urine Bacteria (Auto) (Negative) Ur Renal Epithelial Cell SARS-CoV-2, RNA, NAAT (NEGATIVE) Blood Type A Negative Antibody Screen NEGATIVE 05/27/22 05/27/22 05/27/22 Range/Units 14:09 17:00 18:48 WBC (4.8-10.8) K/ul RBC (4.70-6.10) M/uL Hgb (14.0-18.0) g/dl Hct (42.0-52.0) % MCV (80.0-100.0) fL MCH (25.0-34.0) pg MCHC (32.0-36.0) g/dL RDW Std Deviation (36.4-46.3) fL RDW Coeff of Tasneem (11.5-14.5) % Plt Count (130-400) K/uL MPV (9.4-12.4) fL Immature Gran % (Auto) % Neut % (Auto) % Lymph % (Auto) % [place] % (Auto) % Eos % (Auto) % Baso % (Auto) % Neut # (Auto) (1.40-6.50) K/uL Lymph # (Auto) (1.2-3.4) K/uL [place] # (Auto) (0.11-0.59) K/uL Eos # (Auto) (0-0.50) K/uL Baso # (Auto) (0-0.2) K/uL Immature Gran # (Auto) (0.01-0.20) K/uL PT (9.0-12.0) Seconds INR (0.9-1.1) APTT (21.0-31.0) Seconds PTT Ratio Sodium 150 H 152 H (136-145) mmol/L Potassium 3.7 3.4 L (3.5-5.1) mmol/L Chloride 128 H 132 H (98-107) mmol/L Carbon Dioxide 14 L 12 L (21-32) mmol/L Anion Gap 8 8 (3-11) BUN 115 H 114 H (6-23) mg/dl Creatinine 2.43 H 2.29 H (0.6-1.4) mg/dl Est Cr Clr Drug Dosing 21.2 22.5 ml/min Est GFR ( Amer) 26.9 28.9 ml/min Est GFR (Non-Af Amer) 23.2 24.9 ml/min BUN/Creatinine Ratio 47.3 H 49.8 H (10-20) Glucose 323 H* 248 H (70-99(Fasting)) mg/dl POC Glucose (70-99) mg/dl Lactate (0.4-2.0) mmol/L Calcium 9.7 9.0 (8.5-10.1) mg/dl Magnesium 2.2 (1.7-2.4) mg/dl Total Bilirubin 0.4 (0.2-1.0) mg/dl AST 10 L (13-39) U/L ALT 13 (7-52) U/L Alkaline Phosphatase 73 (34-104) U/L Troponin I High Sens 41.7 H 37.6 H (0-20) pg/ml Total Protein 6.7 (6.0-8.3) gm/dl Albumin 4.0 (3.4-5.0) gm/dl Globulin 2.7 (2.5-4.0) gm/dl Albumin/Globulin Ratio 1.5 (0.9-2) Urine Color Yellow Urine Appearance Cloudy A (Clear) Urine pH 7.0 (4.5-7.5) Ur Specific [place] 1.012 (1.000-1.030) Urine Protein 1+ H (Negative) Urine Glucose (UA) Negative (Negative) Urine Ketones Negative (Negative) Urine Blood 1+ H (Negative) Urine Nitrite Negative (Negative) Urine Bilirubin Negative (Negative) Urine Urobilinogen Negative (Negative) Ur Leukocyte Esterase 2+ H (Negative) Urine WBC (Auto) 10-30 H (0-5) /hpf Urine RBC (Auto) 0-4 (0-4) /hpf U Hyaline Cast (Auto) 1-5 (0-5) /lpf U Epithel Cells (Auto) >30 H (0-5) /lpf Urine Bacteria (Auto) 2+ H (Negative) Ur Renal Epithelial Cell Not Reportable SARS-CoV-2, RNA, NAAT (NEGATIVE) Blood Type Antibody Screen 05/27/22 05/27/22 05/27/22 Range/Units 18:48 19:35 Unknown WBC (4.8-10.8) K/ul RBC (4.70-6.10) M/uL Hgb (14.0-18.0) g/dl Hct (42.0-52.0) % MCV (80.0-100.0) fL MCH (25.0-34.0) pg MCHC (32.0-36.0) g/dL RDW Std Deviation (36.4-46.3) fL RDW Coeff of Tasneem (11.5-14.5) % Plt Count (130-400) K/uL MPV (9.4-12.4) fL Immature Gran % (Auto) % Neut % (Auto) % Lymph % (Auto) % [place] % (Auto) % Eos % (Auto) % Baso % (Auto) % Neut # (Auto) (1.40-6.50) K/uL Lymph # (Auto) (1.2-3.4) K/uL [place] # (Auto) (0.11-0.59) K/uL Eos # (Auto) (0-0.50) K/uL Baso # (Auto) (0-0.2) K/uL Immature Gran # (Auto) (0.01-0.20) K/uL PT (9.0-12.0) Seconds INR (0.9-1.1) APTT (21.0-31.0) Seconds PTT Ratio Sodium (136-145) mmol/L Potassium (3.5-5.1) mmol/L Chloride (98-107) mmol/L Carbon Dioxide (21-32) mmol/L Anion Gap (3-11) BUN (6-23) mg/dl Creatinine (0.6-1.4) mg/dl Est Cr Clr Drug Dosing ml/min Est GFR ( Amer) ml/min Est GFR (Non-Af Amer) ml/min BUN/Creatinine Ratio (10-20) Glucose (70-99(Fasting)) mg/dl POC Glucose 227 H (70-99) mg/dl Lactate 0.8 (0.4-2.0) mmol/L Calcium (8.5-10.1) mg/dl Magnesium (1.7-2.4) mg/dl Total Bilirubin (0.2-1.0) mg/dl AST (13-39) U/L ALT (7-52) U/L Alkaline Phosphatase (34-104) U/L Troponin I High Sens (0-20) pg/ml Total Protein (6.0-8.3) gm/dl Albumin (3.4-5.0) gm/dl Globulin (2.5-4.0) gm/dl Albumin/Globulin Ratio (0.9-2) Urine Color Urine Appearance (Clear) Urine pH (4.5-7.5) Ur Specific [place] (1.000-1.030) Urine Protein (Negative) Urine Glucose (UA) (Negative) Urine Ketones (Negative) Urine Blood (Negative) Urine Nitrite (Negative) Urine Bilirubin (Negative) Urine Urobilinogen (Negative) Ur Leukocyte Esterase (Negative) Urine WBC (Auto) (0-5) /hpf Urine RBC (Auto) (0-4) /hpf U Hyaline Cast (Auto) (0-5) /lpf U Epithel Cells (Auto) (0-5) /lpf Urine Bacteria (Auto) (Negative) Ur Renal Epithelial Cell SARS-CoV-2, RNA, NAAT NEGATIVE (NEGATIVE) Blood Type Antibody Screen Administered Medications Discontinued Medications Sodium Chloride (Nss 1000ml) 1,000 mls @ 50 mls/hr IV .Q20H BERE Stop: 06/26/22 13:59 Last Admin: 05/27/22 14:16 Dose: 50 mls/hr Documented By: AM Imaging Data Radiologist's Impression: Chest X-Ray 05/27/22 13:52 XR chest 1V portable CLINICAL HISTORY: neuro deficit, acute stroke suspected TECHNIQUE: Single frontal radiograph of the chest was obtained. Comparison: Comparison is made to chest radiograph 04/12/2019 FINDINGS: No lines and tubes are seen. Calcified aortic knob is seen. Interval calcifi cations are seen in the lungs favoring the upper lungs. No evidence of pleural effusion or pneumothorax. IMPRESSION: No acute chest disease. ACT 112: Negative or not required by law. Electronically signed by: Ted Loaiza M.D. 05/27/2022 2:[address] 05/27/22 13:52 CT SCAN OF THE BRAIN WITHOUT IV CONTRAST CLINICAL HISTORY: Neurological deficit. Strokelike symptoms. Left lower extremity weakness COMPARISON STUDY: CT of the brain dated 04/06/2022. TECHNIQUE: Unenhanced axial CT scan of the brain is performed from the vertex to the skull base. A dose lowering technique was utilized adhering to the principles of ALARA. CT DOSE: 821.00 mGycm FINDINGS: Brain parenchyma: There is age-related involutional change noting mild to moderate subcortical and periventricular microangiopathic disease. There is no hemorrhage, mass effect, or evidence of acute territorial ischemia by CT criteria. [place]re-white matter differentiation is preserved. No extra-axial fluid collection is seen. Ventricles, sulci, cisterns: Prominent secondary to involutional change. Intracranial vasculature: There is atherosclerotic calcification of the cavernous carotid and vertebral artery. Calvarium: Unremarkable. Sinuses and mastoids: There is trace mucosal thickening within the maxillary antra. The remaining paranasal sinuses are clear. The mastoid air cells are well pneumatized. Orbits: The bony orbits are grossly intact. There are bilateral ocular lens implants. IMPRESSION: There is no hemorrhage, mass effect, or evidence of acute territorial ischemia by CT criteria. ACT 112: Negative or not required by law. Electronically signed by: Brian Dong M.D. 05/27/2022 4:05 PM Discharge Plan Visit Data Chief Complaint: Weakness Stated Complaint: weakness, leaning to the left ED Provider: Miguel A Rivera Discharge Problem: Left leg weakness, Acute hypernatremia, Hyperglycemia, Acute uremia Forms Stand Alone Forms: My [facility] Prescriptions Prescriptions: No Action Eliquis 2.5 mg tablet 2.5 mg PO BID Qty: 180 1RF Rx Instructions: [id number] atorvastatin [Lipitor] 40 mg tablet 40 mg PO QAM Qty: 90 1RF polyethylene glycol 3350 [Miralax] 17 gram powder in packet 17 g PO DAILY PRN (Reason: constipation) Qty: 30 0RF Tradjenta 5 mg tablet 5 mg PO DAILY Qty: 90 3RF famotidine 20 mg tablet 20 mg PO QAM Qty: 90 1RF acetaminophen 500 mg capsule 500 mg PO Q6H PRN (Reason: Pain) ascorbate calcium (vitamin C) 500 mg tablet 500 mg PO DAILY fluconazole 100 mg tablet 100 mg PO DAILY 7 Days Qty: 7 0RF Macular Health Formula 5-7.5 mg capsule 1 cap PO QAM coenzyme Q10 [Co Q-10] 100 mg capsule 100 mg PO QAM Qty: 30 cyanocobalamin (vitamin B-12) [Vitamin B-12] 100 mcg tablet 100 mcg PO QAM Rx Instructions: 2500mcg PO daily; fexofenadine [Ally Allergy] 180 mg Tablet 180 mg PO DAILY PRN (Reason: Allergy Symptoms) zinc acetate 50 mg (zinc) Capsule 50 mg PO DAILY Neuriva Original 50-50 mg Tablet,Chewable 1 tab PO HS Referrals Referrals: Carlito Caro CRNP [Primary Care Provider] -
[2022-05-27] MEDS ORDERED: cefTRIAXone SODIUM 2,000 MG/70 ML BAG IV STA (17:58)
[2022-05-27] MEDS ORDERED: NovoLIN-R INSULIN PER UNIT CHARGE IV STA (18:14)
[2022-05-27] MEDS ORDERED: SODIUM CHLOR 0.45% + 20MEQ KCL 20 MEQ/1,000 ML BAG IV SCH (18:15)
[2022-05-27] MEDS ORDERED: PHARMACIST DISCHARGE MED REC CONSULT PRN (18:21)
[2022-05-27] MEDS ORDERED: GLUCOSE 40% GEL 15 GM TUBE PO PRN (18:23)
[2022-05-27] MEDS ORDERED: CARBOHYDRATES FOR HYPOGLYCEMIA PO PRN (18:23)
[2022-05-27] MEDS ORDERED: GLUCAGON FOR INJ 1 MG VIAL SQ PRN (18:23)
[2022-05-27] MEDS ORDERED: DEXTROSE 50% 50 ML SYRINGE IV PRN (18:23)
[2022-05-27] MEDS ORDERED: GLUCOSE 10 TAB/TUBE PO PRN (18:23)
--- NOTE | 2022-05-27 18:36 | History & Physical Report ---
Date of Service May 27, 2022 Assessment & Plan (1) Acute hypernatremia: Plan: -Admit to the PCU on tele -The patient is currently afebrile, hemodynamically stable, and stable on RA -The patient was found to have a corrected sodium of 154 today, likely due to severe dehydration from inadequate oral intake and two days of diarrhea -Was initially started on light NSS at 50 mL/hr, stopped and will switch to Normosol at 100 mL/hr to slowly bring his sodium down but keep his potassium stable -Continue monitoring BMP q4h to monitor his response with adequate hydration -BL SCD's and home Eliquis for DVT PPX -AM CBC with diff, q4h BMP's, am mag (2) Left leg weakness: Plan: -There was concern for possible left-sided weakness per the ED staff -After further discussions with the patient's family and exam the patient has a non-focal neuro exam -CT of the head was negative for acute changes -Patient has a history of chronic LLE ulcers which are still painful with palpation, this could be his source of pain/weakness as he is non-focal and non- tender on the rest of his exam -His acute UTI could also be contributing to any acute illness and mental status changes -Will obtain an MRI of the brain WO con for further assessment to rule out acute neurologic causes -PT/OT consults placed, fall precautions ordered -Q4h neuro checks (3) Elevated troponin: Plan: -Initial high sensitivity trop elevated at 49, patient is asymptomatic -No acute ST segment or T-wave changes -Likely due demand from his acute dehydration and illness -Will repeat another high sen trop STAT, then monitor q6h overnight -Continue to monitor on tele (4) UTI (urinary tract infection): Plan: -Noted on UA today -No hx of resistant organisms after review of previous urine cultures -S/P a dose of Ceftriaxone in the ED, continue q24h for now -Follow cultures and tailor abx as needed (5) Hyperglycemia: Plan: -Patient noted to be hyperglycemic at 323 -Per his family, the patient has been refusing insulin and recently has not been wanting to take his metformin -His blood sugar has been consistently in the 300's at home per his family -Gave 7 units IV regular insulin on admission -Will attempt to start 5 units lantus BID, correction factor of 50 q4h for now -While currently hyperglycemic the patient had issues with hypoglycemia last admission -Can escalate his regimen as needed (6) Stage II pressure ulcer of left ankle: Plan: -Follows with wound care clinic, currently looks stable -Heel precautions ordered, wound care nurse consulted -Turn and position q2h ordered (7) Silent aspiration: Plan: -No signs of pneumonia today -Continue minced and moist diet, honey thick water, and aspiration precautions - (8) Paroxysmal atrial fibrillation: Plan: -Stable -Continue Eliquis (9) Dyslipidemia: Plan: -Continue statin (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 Barajas at the time of the admission History of Present Illness Chief Complaint: AMS Primary Care Provider: CALLUM Ragsdale Raphael is an 86 year old male with a PMH significant for afib on eliquis, HTN, stage III CKD, dyslipidemia, adenocarcinoma of the colon S/P open subtotal colectomy in 2020 (follows with Heme/onc and currently on surveillance), DM II, anemia and MGUS who presented to the [facility] ED on 05/27/22 from home [facility] for AMS and left leg pain/weakness. In the ED the patient was found to be afebrile, hemodynamically stable, and stable on RA. Labs were remarkable for a CBC with WBC WNL, hgb of 11.5, MCV of 108, thrombocytopenia of 124, Cr of 2.43 (baseline appears near 2.10 after his last admission), glucose of 323, corrected sodium of 154, AG of 8, chloride of 128 with bicarb of 14, BUN of 115 (up from 66 as of 05/01/22), LFT's WNL, initial high sensitivity trop of 41.7, UA suggestive of UTI. Chest xray was read as "No acute chest disease.". CT of the head without con was read as "There is no hemorrhage, mass effect, or evidence of acute territorial ischemia by CT criteria.". Prior to admission the patient was started on light IV hydration of NSS at 50 mL/hr. At the time of the exam the patient was lying in bed in no acute distress with his and daughter standing bedside, history was mainly obtained from his family due to his baseline mental status. They state that he had been in his normal state of health until this am when he appeared to be more fatigued and slow to respond. The patient was able to eat breakfast and check his blood sugar as part of his normal routine. Later in the morning the patient was downstairs and called his down. When she came downstairs that patient was standing but having to lean the left side of his body on the wall for support. She was able to assist him up approximately 10 steps to their first floor, she notes that he was significantly SOB while walking up the steps. They were able to get him to their bed and his symptoms improved with rest. He was complaining of left foot pain but was having difficulty localizing the pain. The patient has been having adequate urostomy output and they state that he has still been eating and drinking well. His last BM was approximately 3 days ago, prior to that he had 2 days of loose bowel movements without blood. He has not had recent fevers, chills, changes in vision, hearing, taste, and smell, chest pain, abd pain, nausea, vomiting, hematuria, LE swelling and recent trauma. The patient follows with the wound clinic for chronic wounds on his BL LE's and right hip. His clarified that the patient's antibiotic and Diflucan as his wounds are healing well. The patient himself denies any pain or complaints at this time. Please refer to Dr. Barajas's attestation for any changes to the treatment plan Allergies Allergy/AdvReac Type Severity Reaction Status Date / Time No Known Allergies Allergy Verified 05/27/22 16:55 Home Medications Medication Instructions Recorded Confirmed Type coenzyme Q10 100 mg capsule (Co 100 mg PO QAM #30 caps 10/19/18 05/27/22 History Q-10) dhtohaxh-yhr-wopthj 5 mg-zeaxanth 1 cap PO QAM 10/19/18 05/27/22 History 1 mg-bilberry 7.5 mg-herbal capsule ([employer] Formula) fexofenadine 180 mg tablet 180 mg PO DAILY PRN Allergy 09/18/20 05/27/22 History (Ally Allergy) Symptoms acetaminophen 500 mg capsule 500 mg PO Q6H PRN Pain 12/10/20 05/27/22 History ascorbate calcium (vitamin C) 500 500 mg PO DAILY 12/10/20 05/27/22 History mg tablet cyanocobalamin (vitamin B-12) 100 100 mcg PO QAM 12/10/20 05/27/22 History mcg tablet (Vitamin B-12) apixaban 2.5 mg tablet (Eliquis) 2.5 mg PO BID #180 tabs 02/13/22 05/27/22 Rx atorvastatin 40 mg tablet (Lipitor) 40 mg PO QAM #90 tabs 03/19/22 05/27/22 Rx coffee extract 50 mg-phosphatidyl 1 tab PO HS 04/06/22 05/27/22 History serine 50 mg chewable tablet (Neuriva Original) zinc acetate 50 mg (zinc) capsule 50 mg PO DAILY 04/06/22 05/27/22 History fluconazole 100 mg tablet 100 mg PO DAILY 7 days #7 tabs 04/29/22 05/27/22 Rx linagliptin 5 mg tablet (Tradjenta) 5 mg PO DAILY #90 tabs 04/29/22 05/27/22 Rx polyethylene glycol 3350 17 gram 17 g PO DAILY PRN constipation #30 04/29/22 05/27/22 Rx oral powder packet (Miralax) ea famotidine 20 mg tablet 20 mg PO QAM #90 tabs 05/07/22 05/27/22 Rx Past Med/Surg History Medical History Allergic rhinitis AMD (age related macular degeneration) Anemia Chronic osteoarthritis Diabetes mellitus with kidney complication Dyslipidemia Hypertension MGUS (monoclonal gammopathy of unknown significance) Osteopenia Peripheral neuropathy Premature ventricular contractions Proteinuria Stage III chronic kidney disease Thrombocytopenia 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) Venous insufficiency Vitamin D deficiency Surgical History H/O colectomy (09/27/20) History of total cystectomy (05/2010) S/P Mohs surgery for basal cell carcinoma (04/2020) Family History Father Myocardial infarction Denies family history of Ovarian cancer Prostate cancer Breast cancer Colorectal cancer Social History Smoking Status: Never smoker Age Started Using Tobacco: 16; Age Quit Using Tobacco: 22; Second Hand Exposure: No; Hx Alcohol Use: Yes Alcohol type: beer Alcohol Intake Frequency: Monthly or Less Hx Substance Use: No Preferred Language: Venezuelan Communication Ability: Effective Visual Impairment: No Limitations Hearing Ability: Hard of Hearing Patient Support 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 Required: No Beliefs That Will Affect Care: None marital status: Current Living Situation: Spouse current occupational status: retired How many Children do You have: 3 Feels Safe at Home: Yes Childhood Exposure to Second-Hand Smoke: Yes Diet Comment: regular caffeine: No during the past year weight has: remained stable Dental Care, Regularly: Yes Physical Activity Frequency: Daily Seatbelt Use: always Sunscreen Use: Yes Assistive Devices: Cane, Hospital Bed and Walker Review of Systems Review of Systems: Denies current fever, chills, headache, changes in vision, hearing, taste, and smell, chest pain, SOB, cough, abdominal pain, nausea, vomiting, diarrhea, hematemesis, melena,hematuria, and recent falls. All systems have been reviewed and are otherwise negative. Physical Exam Physical Exam: Physical Exam: General: In no acute distress, stated age, chronically ill-appearing but not toxic appearing HEENT: Normocephalic, atraumatic, no scleral icterus, pupils around round, symmetrical, and reactive to light, Dry mucus membranes, trachea midline, no thyromegaly Chest/Pulm: No respiratory distress, symmetrical chest expansion, clear breath sounds throughout Cardiac: RRR, no murmurs noted Abdomen: Negative for ascites and bruising, Urostomy bag is in place and currently draining clear, yellow urine, normoactive bowel sounds, soft, non- tender to palpation throughout Musculoskeletal: Symmetrical and without signs of acute trauma, upper and lower extremities with full ROM, no atrophy, spasticity, or flaccidity, Patient with intact ROM and symmetrical strength in the BL upper and lower extremities Extremities: Radial, dorsalis pedis, and posterior tibial pulses are intact and symmetrical, no edema noted in the BL LE's Skin: Neuro: Alert and oriented to person, place, month, year, no focal defects, CN II-XII tested and intact, no tremors noted Psych: No acute distress, calm and cooperative during the exam Results & Data Results & Data Vital Signs (Past 12 Hours) Vital Signs Temp Pulse Resp BP Pulse Ox O2 Del Method 05/27/22 17:19 92 H 05/27/22 16:00 85 22 142/74 H 05/27/22 15:30 82 14 127/75 05/27/22 15:00 85 14 05/27/22 14:30 97 H 12 100 05/27/22 14:00 88 16 05/27/22 14:00 139/88 05/27/22 13:30 88 19 98 05/27/22 13:07 94 H 17 05/27/22 13:21 92 H 05/27/22 13:10 36.6 C 90 24 135/69 99 Room Air Laboratory Results Abnormal lab results 05/27/22 05/27/22 05/27/22 Range/Units 14:09 14:09 17:00 RBC 3.26 L (4.70-6.10) M/uL Hgb 11.5 L (14.0-18.0) g/dl Hct 35.2 L (42.0-52.0) % MCV 108.0 H (80.0-100.0) fL MCH 35.3 H (25.0-34.0) pg RDW Std Deviation 61.8 H (36.4-46.3) fL RDW Coeff of Tasneem 15.5 H (11.5-14.5) % Plt Count 124 L (130-400) K/uL Lymph # (Auto) 0.87 L (1.2-3.4) K/uL Sodium 150 H (136-145) mmol/L Potassium (3.5-5.1) mmol/L Chloride 128 H (98-107) mmol/L Carbon Dioxide 14 L (21-32) mmol/L BUN 115 H (6-23) mg/dl Creatinine 2.43 H (0.6-1.4) mg/dl BUN/Creatinine Ratio 47.3 H (10-20) Glucose 323 H* (70-99(Fasting)) mg/dl AST 10 L (13-39) U/L Troponin I High Sens 41.7 H (0-20) pg/ml Urine Appearance Cloudy A (Clear) Urine Protein 1+ H (Negative) Urine Blood 1+ H (Negative) Ur Leukocyte Esterase 2+ H (Negative) Urine WBC (Auto) 10-30 H (0-5) /hpf U Epithel Cells (Auto) >30 H (0-5) /lpf Urine Bacteria (Auto) 2+ H (Negative) 05/27/22 Range/Units 18:48 RBC (4.70-6.10) M/uL Hgb (14.0-18.0) g/dl Hct (42.0-52.0) % MCV (80.0-100.0) fL MCH (25.0-34.0) pg RDW Std Deviation (36.4-46.3) fL RDW Coeff of Tasneem (11.5-14.5) % Plt Count (130-400) K/uL Lymph # (Auto) (1.2-3.4) K/uL Sodium 152 H (136-145) mmol/L Potassium 3.4 L (3.5-5.1) mmol/L Chloride 132 H (98-107) mmol/L Carbon Dioxide 12 L (21-32) mmol/L BUN 114 H (6-23) mg/dl Creatinine 2.29 H (0.6-1.4) mg/dl BUN/Creatinine Ratio 49.8 H (10-20) Glucose 248 H (70-99(Fasting)) mg/dl AST (13-39) U/L Troponin I High Sens (0-20) pg/ml Urine Appearance (Clear) Urine Protein (Negative) Urine Blood (Negative) Ur Leukocyte Esterase (Negative) Urine WBC (Auto) (0-5) /hpf U Epithel Cells (Auto) (0-5) /lpf Urine Bacteria (Auto) (Negative) Diagnostic Findings Chest X-Ray 05/27/22 13:52 XR chest 1V portable CLINICAL HISTORY: neuro deficit, acute stroke suspected TECHNIQUE: Single frontal radiograph of the chest was obtained. Comparison: Comparison is made to chest radiograph 04/12/2019 FINDINGS: No lines and tubes are seen. Calcified aortic knob is seen. Interval calcifications are seen in the lungs favoring the upper lungs. No evidence of pleural effusion or pneumothorax. IMPRESSION: No acute chest disease. ACT 112: Negative or not required by law. Electronically signed by: Ted Loaiza M.D. 05/27/2022 2:[address] 05/27/22 13:52 CT SCAN OF THE BRAIN WITHOUT IV CONTRAST CLINICAL HISTORY: Neurological deficit. Strokelike symptoms. Left lower extremity weakness COMPARISON STUDY: CT of the brain dated 04/06/2022. TECHNIQUE: Unenhanced axial CT scan of the brain is performed from the vertex to the skull base. A dose lowering technique was utilized adhering to the principles of ALARA. CT DOSE: 821.00 mGycm FINDINGS: Brain parenchyma: There is age-related involutional change noting mild to moderate subcortical and periventricular microangiopathic disease. There is no hemorrhage, mass effect, or evidence of acute territorial ischemia by CT criteria. Izaguirre-white matter differentiation is preserved. No extra-axial fluid collection is seen. Ventricles, sulci, cisterns: Prominent secondary to involutional change. Intracranial vasculature: There is atherosclerotic calcification of the cavernous carotid and vertebral artery. Calvarium: Unremarkable. Sinuses and mastoids: There is trace mucosal thickening within the maxillary antra. The remaining paranasal sinuses are clear. The mastoid air cells are well pneumatized. Orbits: The bony orbits are grossly intact. There are bilateral ocular lens implants. IMPRESSION: There is no hemorrhage, mass effect, or evidence of acute territorial ischemia by CT criteria. ACT 112: Negative or not required by law. Electronically signed by: Brian Dong M.D. 05/27/2022 4:05 PM ECG Additional Comments: Poor data quality, interpretation may be adversely affected Suspect arm lead reversal, interpretation assumes no reversal Atrial fibrillation Low voltage QRS Anterolateral infarct , age undetermined Abnormal ECG When compared with ECG of 06-APR-2022 08:43, QRS axis Shifted right Anterolateral infarct is now Present Code Status & VTE Plan Code Status DNR/DNI VTE Prophylaxis Plan VTE Prophylaxis will be ordered: Yes Supervising Physician Co-Signing Physician Notes Patient seen and examined, chart reviewed, case discussed with Olman Santos PA-C and I agree with the assessment and plan as above except as otherwise noted Labs and images reviewed Hx of afib on eliquis, urostomy, dementia, pressure ulcers, MGUS, and T2Dm who woke up more fatigued and confused this morning. found him after calling out leaning against the wall supporting himself due to weakness. Had some SoB with the episode which resolved with rest. Called PCP while he was resting and recommended he be evaluated. BSG with poor recent control due to refusing insulin and BSG have been running in 300s. Hx of aspiration events with modified diet and thickened liquids per speech. 2x loose BMs earlier in the week. Appears to have a UTI on admit likely contributing to generalized weakness. At bedside assessment does have a healing left ankle ulcer, prior x-ray review did not show osteo and this appears to be improving with granulation tissue and without demarcated erythema. Patient is alert, oriented and feels better than when he came in at bedside assessment. Lungs are grossly clear, remains slightly tachycardic mucous membranes are very dry. Hyponatremic with increased creatinine consistent with severe volume depletion sounds like pt was leaning on left side for general weakness, but was able to walk up the stairs. Suspect more general weakness than hemiplegia based on history, but will complete MRI for r/o. Sodium greater than 150 in the setting of volume contraction, initially deferred D5 due to hyperglycemia. Would not continue to use aggressive chloride given normal saline given on admission and hyperchloremia to 132. Will tx with normosol and BMP q4h. PG Care Time/CCT Total # of Minutes Spent Total Time Spent with Patient: Total time spent is greater than 50% in coordination of care (as documented) at patient's floor/unit and/or counseling patient: Coding [place] [address] INT INP/OBS CARE 3/75MIN Patient Type Established History Comprehensive Exam Comprehensive Medical Decision Making High Complexity Diagnoses Acute hypernatremia E87.0 Left leg weakness R29.898 Elevated troponin R77.8 UTI (urinary tract infection) N39.0 Hyperglycemia R73.9 Stage II pressure ulcer of left ankle L89.522 Silent aspiration T17.900A Paroxysmal atrial fibrillation I48.0 Dyslipidemia E78.5 Diabetes mellitus with kidney complication E11.29 Hypertension I10 Thrombocytopenia D69.6 MGUS (monoclonal gammopathy of unknown significance) D47.2
[2022-05-27 19:22] LABS: BUN Creatinine Ratio 49.8 (10-20); Creatinine Clr Calc Pharmacy 22.5 ml/min; Est GFR (African American) 28.9 ml/min; Est GFR (Non-African American) 24.9 ml/min; Potassium 3.4 mmol/L (3.5-5.1)
[2022-05-27 19:29] LABS: Troponin I High Sensitivity 37.6 pg/ml (0-20)
[2022-05-27] MEDS ORDERED: POLYETHYLENE (MIRALAX) 17 GM PACK PO PRN (22:16)
[2022-05-27] MEDS: PLASMA-LYTE A 1,000 ML IV SCH (22:36)
[2022-05-27] MEDS: INSULIN ASPART PER UNIT CHARGE SC SCH ×2 (22:37→22:58)
[2022-05-27] MEDS: APIXABAN 2.5 MG TAB PO SCH (22:49)
[2022-05-27] MEDS: LANTUS PER UNIT CHARGE SQ SCH (22:58)
[2022-05-28 01:08] LABS: BUN Creatinine Ratio 47.1 (10-20); Calcium 9.3 mg/dl (8.5-10.1); Creatinine Clr Calc Pharmacy 22.7 ml/min; Est GFR (African American) 29.2 ml/min; Est GFR (Non-African American) 25.2 ml/min; Potassium 3.4 mmol/L (3.5-5.1)
[2022-05-28 01:15] LABS: Troponin I High Sensitivity 44.3 pg/ml (0-20)
[2022-05-28] MEDS: INSULIN ASPART PER UNIT CHARGE SC SCH ×6 (04:14→20:58)
[2022-05-28 05:20] LABS: BUN Creatinine Ratio 47.3 (10-20); Calcium 9.2 mg/dl (8.5-10.1); Creatinine Clr Calc Pharmacy 23.2 ml/min; Est GFR (Non-African American) 25.9 ml/min; Potassium 3.3 mmol/L (3.5-5.1)
[2022-05-28 06:52] LABS: Basophils # (auto) 0.02 K/uL (0-0.2); Basophils % (auto) 0.4 %; Eosinophils # (auto) 0.12 K/uL (0-0.50); Eosinophils % (auto) 2.3 %; Hematocrit (blood only) 34.4 % (42.0-52.0); Hemoglobin 11.5 g/dl (14.0-18.0); Immature Granulocytes # (auto) 0.02 K/uL (0.01-0.20); Immature Granulocytes % (auto) 0.4 %; Lymphocytes # (auto) 0.79 K/uL (1.2-3.4); Lymphocytes % (auto) 14.8 %; Mean Corpuscular Hemoglobin 35.2 pg (25.0-34.0); Mean Corpuscular Hgb Conc 33.4 g/dL (32.0-36.0); Mean Corpuscular Volume 105.2 fL (80.0-100.0); Mean Platelet Volume 11.7 fL (9.4-12.4); Monocytes % (auto) 5.6 %; Neutrophils # (auto) 4.07 K/uL (1.40-6.50); Neutrophils % (auto) 76.5 %; Platelet Count 110 K/uL (130-400); RDW Coefficient of Variation 15.3 % (11.5-14.5); RDW Standard Deviation 59.8 fL (36.4-46.3); Red Blood Count 3.27 M/uL (4.70-6.10); White Blood Count 5.32 K/ul (4.8-10.8)
--- NOTE | 2022-05-28 07:11 | Magnetic Resonance Report ---
MR brain wo con CLINICAL HISTORY: stroke workup TECHNIQUE: Multiplanar and multisequence MR images of the brain were obtained without intravenous con trast. Comparison: Comparison is made to CT head 05/27/2022 FINDINGS: No abnormal restricted diffusion is identified. Foci of T2 and FLAIR hyperintensity are noted in the paraventricular areas consistent with chronic small vessel ischemic disease. Ex vacuo ventriculomegal y and sulcal enlargement is noted compatible with diffuse encephalomalacia. No mass is seen. There is no mass effect or midline shift. There is no evidence of acute intraparenchymal hemorrhage. No extra axial fluid collections are seen. The corpus callosum, pituitary gland, and cerebellar tonsils appea r grossly unremarkable. Flow voids of the major intracranial arterial vessels are identified. The imaged portions of the para nasal sinuses, mastoid air cells, and orbits are unremarkable. IMPRESSION: No acute abnormality and in particular no evidence of acute infarct. ACT 112: Negative or not required by law. Electronically signed by: Ted Loaiza M.D. 05/28/2022 7:10 AM
[2022-05-28 07:15] LABS: BUN Creatinine Ratio 46.6 (10-20); Calcium 9.1 mg/dl (8.5-10.1); Chol HDL Ratio 2.9 (0-5); Creatinine Clr Calc Pharmacy 23.3 ml/min; Est GFR (African American) 30.1 ml/min; Potassium 3.4 mmol/L (3.5-5.1)
[2022-05-28] MEDS: CYANOCOBALAMIN (B-12) 2,500 MCG TABLET SL SCH (08:23)
[2022-05-28] MEDS: PLASMA-LYTE A 1,000 ML IV SCH (08:23)
[2022-05-28] MEDS: ATORVASTATIN 40 MG TAB PO SCH (08:23)
[2022-05-28] MEDS: FAMOTIDINE 20 MG TAB PO SCH (08:23)
[2022-05-28] MEDS: APIXABAN 2.5 MG TAB PO SCH ×2 (08:23→20:35)
[2022-05-28 09:11] LABS: BUN Creatinine Ratio 45.9 (10-20); Creatinine Clr Calc Pharmacy 23.7 ml/min; Est GFR (African American) 30.6 ml/min; Est GFR (Non-African American) 26.4 ml/min; Potassium 3.4 mmol/L (3.5-5.1)
[2022-05-28] MEDS: LANTUS PER UNIT CHARGE SQ SCH ×2 (09:13→20:35)
[2022-05-28 09:29] LABS: Estimated Average Glucose 197 mg/dl; Hemoglobin A1C 8.5 % (4.5-5.6)
--- NOTE | 2022-05-28 11:52 | Electrocardiogram Report ---
Test Reason : Blood Pressure : / mmHG Vent. Rate : 087 BPM Atrial Rate : 300 BPM P-R Int : 000 ms QRS Dur : 100 ms QT Int : 322 ms P-R-T Axes : 000 146 -32 degrees QTc Int : 387 ms Poor data quality, interpretation may be adversely affected Suspect arm lead reversal, interpretation assumes no reversal Atrial fibrillation with aberrant conduction Low voltage QRS Abnormal ECG When compared with ECG of 06-APR-2022 08:43, QRS axis Shifted right Confirmed by Torey Hughes ([id number]) on 05/28/2022 11:52:30 AM Referred By: REFERRED SELF Confirmed By:Lance Hughes
[2022-05-28] MEDS ORDERED: POTASSIUM CHLORIDE CRTAB 20 MEQ TABCR PO STA (12:22)
--- NOTE | 2022-05-28 12:26 | Hospitalist Progress Note ---
Date of Service May 28, 2022 Assessment & Plan (1) Acute hypernatremia: Plan: Hypovolemic hypernatremia d/t severe dehydration in setting of poor po intake and diarrhea - Was initially started on light NSS at 50 mL/hr, stopped and will switch to Normosol at 100 mL/hr to slowly bring his sodium down but keep his potassium stable - Continue monitoring BMP q4h to monitor his response with adequate hydration - D/C Normosol and change to D51/4NSS @ 100 ml/hr - Stop serial BMPs, will recheck BMP in AM (2) Left leg weakness: Plan: -There was concern for possible left-sided weakness per the ED staff -After further discussions with the patient's family and exam the patient has a non-focal neuro exam -CT of the head was negative for acute changes -Patient has a history of chronic LLE ulcers which are still painful with palpation, this could be his source of pain/weakness as he is non-focal and non- tender on the rest of his exam -His acute UTI could also be contributing to any acute illness and mental status changes -Will obtain an MRI of the brain WO con for further assessment to rule out acute neurologic causes -PT/OT consults placed, fall precautions ordered -Q4h neuro checks (3) Elevated troponin: Plan: - Initial high sensitivity trop elevated at 49, patient is asymptomatic - No acute ST segment or T-wave changes - Likely due myocardial demand from his acute dehydration and illness - last trop 50.2 @ 6am, repeat pending, remains asymptomatic - again elevation is secondary to demand, no need to continue trending (4) UTI (urinary tract infection): Plan: - Noted on UA today - No hx of resistant organisms after review of previous urine cultures - S/P a dose of Ceftriaxone in the ED, continue q24h for now - Prelim urine culture growing gram neg bacilli - final pending, continue Rocephin (5) Hyperglycemia: Plan: Hyperglycemia secondary to uncontrolled DM with medication noncompliance - Patient noted to be hyperglycemic at 323 in ED - Per his family, the patient has been refusing insulin and recently has not been wanting to take his metformin - His blood sugar has been consistently in the 300's at home per his family - Gave 7 units IV regular insulin on admission - Will attempt to start 5 units lantus BID, correction factor of 50 q4h for now - While currently hyperglycemic the patient had issues with hypoglycemia last admission - Can escalate his regimen as needed (6) Stage II pressure ulcer of left ankle: Plan: -Follows with wound care clinic, currently looks stable -Heel precautions ordered, wound care nurse consulted -Turn and position q2h ordered (7) Silent aspiration: Plan: - No signs of pneumonia today - Continue minced and moist diet, honey thick water, and aspiration precautions (8) Thrombocytopenia: Plan: - Noted to be 124 on admit, per review his platelet count and anemia fluctuates - Reviewed CBC today - platelets 110 - stable (9) Stage III chronic kidney disease: Plan: - Chronic/stable - Baseline creatinine ~2.2 - Reviewed BMP today, renal function stable - Renally adjust meds when appropriate Plan DVT ppx covered with Eliquis which he takes for afib. IVF change as outlined above. Repeat labs this evening and in AM. PT/OT eval and case management to assist in dc planning. ?rehab. Will d/w Dr. Mayes. Admission and Anticipated Discharge Date Admission Date: May 27, 2022 Subjective Patient was seen on rounds this morning. He endorses no complaints this morning. Denies cp, dyspnea, n/v/d, f/c. Physical Exam Physical Exam: GENERAL: 86 yo thin/frail elderly WM. A&O x3. NAD. LUNGS: Clear to auscultation bilaterally. No W/R/R. CARDIOVASCULAR: S1 S2 irreg ABDOMEN: Soft, non-tender and non-distended. Bs normoactive x 4 quad. Urostomy bag with pale yellow urine present. Results & Data Results & Data Vital Signs (Past 12 Hours) Vital Signs Temp Pulse Pulse Resp BP BP Pulse Ox 05/28/22 11:47 36.9 C 87 17 123/72 97 05/28/22 11:00 96 H 05/28/22 08:00 96 H 05/28/22 07:31 36.5 C 93 H 19 156/96 H 99 05/28/22 03:43 36.7 C 65 18 103/45 L 95 05/28/22 03:30 96 H O2 Del Method 05/28/22 11:47 Room Air 05/28/22 11:00 05/28/22 08:00 05/28/22 07:31 Room Air 05/28/22 03:43 Room Air 05/28/22 03:30 Laboratory Results 05/28/22 05:55 PG Care Time/CCT Total # of Minutes Spent Total Time Spent with Patient: Total time spent is greater than 50% in coordination of care (as documented) at patient's floor/unit and/or counseling patient: Coding Level of Care Code 49146 SUB INP/OBS CARE 3/50MIN Diagnoses Acute hypernatremia E87.0 Left leg weakness R29.898 Elevated troponin R77.8 UTI (urinary tract infection) N39.0 Hyperglycemia R73.9 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
[2022-05-28 12:39] LABS: BUN Creatinine Ratio 44.5 (10-20); Calcium 9.1 mg/dl (8.6-10.3); Creatinine Clr Calc Pharmacy 23.5 ml/min; Est GFR (African American) 30.3 ml/min; Est GFR (Non-African American) 26.2 ml/min; Potassium 3.5 mmol/L (3.5-5.1)
[2022-05-28 12:46] LABS: Troponin I High Sensitivity 48.9 pg/ml (0-20)
[2022-05-28] MEDS: D5W AND 1/4NSS 1,000 ML IV SCH (14:30)
[2022-05-28] MEDS: cefTRIAXone SODIUM 1,000 MG in DEXTROSE 5% AD-VAN 50 ML IV SCH (22:39)
[2022-05-29] MEDS: D5W AND 1/4NSS 1,000 ML IV SCH ×2 (02:44→15:18)
[2022-05-29 06:22] LABS: Basophils # (auto) 0.02 K/uL (0-0.2); Basophils % (auto) 0.4 %; Eosinophils # (auto) 0.16 K/uL (0-0.50); Eosinophils % (auto) 3.1 %; Hematocrit (blood only) 33.8 % (42.0-52.0); Hemoglobin 11.1 g/dl (14.0-18.0); Immature Granulocytes # (auto) 0.02 K/uL (0.01-0.20); Immature Granulocytes % (auto) 0.4 %; Lymphocytes # (auto) 0.84 K/uL (1.2-3.4); Lymphocytes % (auto) 16.1 %; Mean Corpuscular Hemoglobin 34.9 pg (25.0-34.0); Mean Corpuscular Hgb Conc 32.8 g/dL (32.0-36.0); Mean Corpuscular Volume 106.3 fL (80.0-100.0); Mean Platelet Volume 11.6 fL (9.4-12.4); Monocytes # (auto) 0.26 K/uL (0.11-0.59); Neutrophils # (auto) 3.93 K/uL (1.40-6.50); Platelet Count 103 K/uL (130-400); RDW Coefficient of Variation 15.5 % (11.5-14.5); RDW Standard Deviation 59.7 fL (36.4-46.3); Red Blood Count 3.18 M/uL (4.70-6.10); White Blood Count 5.23 K/ul (4.8-10.8)
[2022-05-29 06:39] LABS: BUN Creatinine Ratio 42.1 (10-20); Calcium 8.7 mg/dl (8.6-10.3); Creatinine Clr Calc Pharmacy 24.1 ml/min; Est GFR (African American) 31.3 ml/min; Potassium 3.5 mmol/L (3.5-5.1)
[2022-05-29] MEDS: FAMOTIDINE 20 MG TAB PO SCH (08:31)
[2022-05-29] MEDS: APIXABAN 2.5 MG TAB PO SCH ×2 (08:31→21:09)
[2022-05-29] MEDS: ATORVASTATIN 40 MG TAB PO SCH (08:31)
[2022-05-29] MEDS: CYANOCOBALAMIN (B-12) 2,500 MCG TABLET SL SCH (08:31)
[2022-05-29] MEDS: INSULIN ASPART PER UNIT CHARGE SC SCH ×4 (08:37→20:58)
[2022-05-29] MEDS: LANTUS PER UNIT CHARGE SQ SCH ×2 (08:40→21:06)
[2022-05-29 10:20] LABS: Base Excess VBG -13.6 mEq/L; HCO3 VBG 13 mmol/L; Oxygen Saturation VBG 67.2 %; PCO2 VBG 30 mmHg (38-50); PO2 VBG 36 mmHg; pH VBG 7.23 (7.36-7.41)
[2022-05-29] MEDS ORDERED: SODIUM BICARBONATE 650 MG TAB PO ONE (15:36)
[2022-05-29 16:38] LABS: BUN Creatinine Ratio 39.7 (10-20); Calcium 8.7 mg/dl (8.6-10.3); Creatinine Clr Calc Pharmacy 24.7 ml/min; Est GFR (African American) 32.3 ml/min; Est GFR (Non-African American) 27.8 ml/min; Potassium 3.6 mmol/L (3.5-5.1)
--- NOTE | 2022-05-29 17:27 | Hospitalist Progress Note ---
Date of Service May 29, 2022 Assessment & Plan (1) Acute hypernatremia: Plan: Hypovolemic hypernatremia d/t severe dehydration in setting of poor po intake and diarrhea - Was initially started on light NSS at 50 mL/hr, stopped and will switch to Normosol at 100 mL/hr to slowly bring his sodium down but keep his potassium stable - Continue monitoring BMP q4h to monitor his response with adequate hydration - D/C Normosol and now on D5-1/4NSS @ 100 ml/hr - Stop serial BMPs, will recheck BMP in AM sodium has gradually improved. Patient also having metabolic acidosis, will place on bicarb (started on 05/29) and continue IVF. Given acid base disturbances and hypernatremia, this is a complicated patient. will closely monitor. (2) Left leg weakness: Plan: -There was concern for possible left-sided weakness per the ED staff -After further discussions with the patient's family and exam the patient has a non-focal neuro exam -CT of the head was negative for acute changes -Patient has a history of chronic LLE ulcers which are still painful with palpation, this could be his source of pain/weakness as he is non-focal and non- tender on the rest of his exam -His acute UTI could also be contributing to any acute illness and mental status changes -Will obtain an MRI of the brain WO con for further assessment to rule out acute neurologic causes -PT/OT consults placed, fall precautions ordered -Q4h neuro checks (3) Elevated troponin: Plan: - Initial high sensitivity trop elevated at 49, patient is asymptomatic - No acute ST segment or T-wave changes - Likely due myocardial demand from his acute dehydration and illness - last trop 50.2 @ 6am, repeat pending, remains asymptomatic - again elevation is secondary to demand, no need to continue trending (4) UTI (urinary tract infection): Plan: - Noted on UA today - No hx of resistant organisms after review of previous urine cultures - S/P a dose of Ceftriaxone in the ED, continue q24h for now - Prelim urine culture growing gram neg bacilli continue Rocephin as culture is showing sensitivity (5) Hyperglycemia: Plan: Hyperglycemia secondary to uncontrolled DM with medication noncompliance - Patient noted to be hyperglycemic at 323 in ED - Per his family, the patient has been refusing insulin and recently has not been wanting to take his metformin - His blood sugar has been consistently in the 300's at home per his family - Gave 7 units IV regular insulin on admission - Will attempt to start 5 units lantus BID, correction factor of 50 q4h for now - While currently hyperglycemic the patient had issues with hypoglycemia last admission - Can escalate his regimen as needed (6) Stage II pressure ulcer of left ankle: Plan: -Follows with wound care clinic, currently looks stable -Heel precautions ordered, wound care nurse consulted -Turn and position q2h ordered (7) Silent aspiration: Plan: - No signs of pneumonia today - Continue minced and moist diet, honey thick water, and aspiration precautions (8) Thrombocytopenia: Plan: - Noted to be 124 on admit, per review his platelet count and anemia fluctuates - Reviewed CBC today - platelets 110 - stable (9) Stage III chronic kidney disease: Plan: - Chronic/stable - Baseline creatinine ~2.2 - Reviewed BMP today, renal function stable - Renally adjust meds when appropriate Plan DVT ppx covered with Eliquis which he takes for afib. IVF change as outlined above. Repeat labs this evening and in AM. PT/OT eval and case management to assist in dc planning. ?rehab. Will d/w Dr. Mayes. Admission and Anticipated Discharge Date Admission Date: May 27, 2022 Subjective Patient reports no new symptoms. Review of Systems Review of Systems: All systems reviewed & are unremarkable except as noted in HPI & below Physical Exam Physical Exam: GENERAL: 86 yo thin/frail elderly WM. A&O x3. NAD. LUNGS: Clear to auscultation bilaterally. No W/R/R. CARDIOVASCULAR: S1 S2 irreg ABDOMEN: Soft, non-tender and non-distended. Bs normoactive x 4 quad. Urostomy bag with pale yellow urine present. Results & Data Results & Data Vital Signs (Past 12 Hours) Vital Signs Temp Pulse Pulse Resp BP Pulse Ox O2 Del Method 05/29/22 16:11 36.6 C 80 17 111/77 99 Room Air 05/29/22 15:00 78 05/29/22 11:36 36.5 C 78 17 118/66 100 Room Air 05/29/22 07:47 81 05/29/22 07:45 36.5 C 71 17 150/82 H 100 Room Air PG Care Time/CCT Total # of Minutes Spent Total Time Spent with Patient: Total time spent is greater than 50% in coordination of care (as documented) at patient's floor/unit and/or counseling patient: Coding Level of Care Code 34210 SUB INP/OBS CARE 3/50MIN Diagnoses Acute hypernatremia E87.0 Left leg weakness R29.898 Elevated troponin R77.8 UTI (urinary tract infection) N39.0 Hyperglycemia R73.9 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
[2022-05-29] MEDS: cefTRIAXone SODIUM 1,000 MG in DEXTROSE 5% AD-VAN 50 ML IV SCH (21:08)
[2022-05-29] MEDS: SODIUM BICARBONATE 650 MG TAB PO SCH (21:09)
[2022-05-30] MEDS: D5W AND 1/4NSS 1,000 ML IV SCH ×2 (04:28→18:46)
[2022-05-30 07:31] LABS: Calcium 8.3 mg/dl (8.6-10.3); Creatinine Clr Calc Pharmacy 24.8 ml/min; Est GFR (African American) 32.4 ml/min; Potassium 3.2 mmol/L (3.5-5.1)
[2022-05-30 07:38] LABS: Basophils # (auto) 0.01 K/uL (0-0.2); Basophils % (auto) 0.2 %; Echinocytes 1+; Eosinophils # (auto) 0.16 K/uL (0-0.50); Eosinophils % (auto) 3.1 %; Hematocrit (blood only) 31.2 % (42.0-52.0); Hemoglobin 10.5 g/dl (14.0-18.0); Immature Granulocytes # (auto) 0.02 K/uL (0.01-0.20); Immature Granulocytes % (auto) 0.4 %; Lymphocytes # (auto) 0.75 K/uL (1.2-3.4); Lymphocytes % (auto) 14.7 %; Mean Corpuscular Hemoglobin 35.1 pg (25.0-34.0); Mean Corpuscular Hgb Conc 33.7 g/dL (32.0-36.0); Mean Corpuscular Volume 104.3 fL (80.0-100.0); Mean Platelet Volume 11.6 fL (9.4-12.4); Monocytes # (auto) 0.22 K/uL (0.11-0.59); Monocytes % (auto) 4.3 %; Neutrophils # (auto) 3.94 K/uL (1.40-6.50); Neutrophils % (auto) 77.3 %; Platelet Count 97 K/uL (130-400); Platelet Estimate Decreased (Normal); Polychromasia 1+; RDW Coefficient of Variation 15.7 % (11.5-14.5); RDW Standard Deviation 59.5 fL (36.4-46.3); Red Blood Count 2.99 M/uL (4.70-6.10)
[2022-05-30] MEDS: ATORVASTATIN 40 MG TAB PO SCH (08:25)
[2022-05-30] MEDS: SODIUM BICARBONATE 650 MG TAB PO SCH ×3 (08:25→20:42)
[2022-05-30] MEDS: APIXABAN 2.5 MG TAB PO SCH ×2 (08:25→20:42)
[2022-05-30] MEDS: CYANOCOBALAMIN (B-12) 2,500 MCG TABLET SL SCH (08:25)
[2022-05-30] MEDS: FAMOTIDINE 20 MG TAB PO SCH (08:25)
[2022-05-30] MEDS: INSULIN ASPART PER UNIT CHARGE SC SCH ×4 (09:15→20:20)
[2022-05-30] MEDS: LANTUS PER UNIT CHARGE SQ SCH ×2 (09:15→20:38)
[2022-05-30] MEDS ORDERED: POTASSIUM CHLORIDE CRTAB 20 MEQ TABCR PO STA (09:56)
[2022-05-30] MEDS: POTASSIUM CHLORIDE / WTR 10 MEQ/100 ML PLCT IV SCH ×2 (11:42→15:02)
--- NOTE | 2022-05-30 15:55 | Magnetic Resonance Report ---
MR ankle LT wo con HISTORY: left heel ulcer TECHNIQUE: Multiplanar multisequence MRI of the left ankle was performed without contrast according t o standard departmental protocol. COMPARISON STUDY: Left ankle radiograph 05/06/2022. FINDINGS: Suboptimal evaluation of the left ankle due to the motion artifact. However, no acute fract ure or dislocation within the left ankle. No areas of cortical destruction or abnormal signal intensi ty within the calcaneus to suggest an osteomyelitis. Small focus of edema like marrow signal within t he lateral aspect of the distal fibula best seen on coronal STIR image 24 series 11. This is indeterm inate and not well assessed due to the motion artifact. Otherwise, normal marrow signal intensity see n throughout the visualized osseous structures of the left ankle. Mild soft tissue edema within the l eft ankle is noted. The Achilles tendon and plantar fascia are intact. There is mild to moderate cart ilage space narrowing at the tibiotalar joint consistent with degenerative change. There are also mil d to moderate degenerative changes within the intertarsal joints. The medial and lateral stabilizing ligaments appear grossly intact. No loculated fluid collections on this noncontrast study to suggest an abscess. The flexor and extensor tendons are normal in course, caliber, and signal intensity. Ther e is a split tear of the peroneus brevis tendon. IMPRESSION: 1. Suboptimal evaluation of the left ankle due to the motion artifact. 2. Small focus of edema like marrow signal within the lateral aspect of the distal fibula. This is in determinate and not well assessed due to the motion artifact. This could represent mild nonspecific e roopa or possibly a low-grade osteitis. Otherwise, no areas of cortical destruction to confirm the pre sence of an osteomyelitis within the left ankle. 3. Split tear of the peroneus brevis tendon. 4. Mild to moderate degenerative changes within the left ankle and hindfoot. 5. Diffuse soft tissue edema within the left ankle. ACT 112: Negative or not required by law. Electronically signed by: Armando Carpenter M.D. 05/30/2022 3:53 PM
--- NOTE | 2022-05-30 21:47 | Hospitalist Progress Note ---
Date of Service May 30, 2022 Assessment & Plan (1) Acute hypernatremia: Plan: Hypovolemic hypernatremia d/t severe dehydration in setting of poor po intake and diarrhea - Was initially started on light NSS at 50 mL/hr, stopped and will switch to Normosol at 100 mL/hr to slowly bring his sodium down but keep his potassium stable - Continue monitoring BMP q4h to monitor his response with adequate hydration - D/C Normosol and now on D5-1/4NSS @ 100 ml/hr - Stop serial BMPs, will recheck BMP in AM sodium has gradually improved. Patient also having metabolic acidosis, will place on bicarb (started on 05/29) and continue IVF. Given acid base disturbances and hypernatremia, this is a complicated patient. will closely monitor. Sodium has slowly improved. Patient continues to have metabolic acidosis will recheck in AM. (2) Left leg weakness: Plan: -There was concern for possible left-sided weakness per the ED staff -After further discussions with the patient's family and exam the patient has a non-focal neuro exam -CT of the head was negative for acute changes -Patient has a history of chronic LLE ulcers which are still painful with palpation, this could be his source of pain/weakness as he is non-focal and non- tender on the rest of his exam -His acute UTI could also be contributing to any acute illness and mental status changes -Will obtain an MRI of the brain WO con for further assessment to rule out acute neurologic causes -PT/OT consults placed, fall precautions ordered -Q4h neuro checks will obtain imaging of his left ankle due to concern of osteomyelitis (3) Elevated troponin: Plan: - Initial high sensitivity trop elevated at 49, patient is asymptomatic - No acute ST segment or T-wave changes - Likely due myocardial demand from his acute dehydration and illness - last trop 50.2 @ 6am, repeat pending, remains asymptomatic - again elevation is secondary to demand, no need to continue trending (4) UTI (urinary tract infection): Plan: - Noted on UA today - No hx of resistant organisms after review of previous urine cultures - S/P a dose of Ceftriaxone in the ED, continue q24h for now - Prelim urine culture growing gram neg bacilli continue Rocephin as culture is showing sensitivity (5) Hyperglycemia: Plan: Hyperglycemia secondary to uncontrolled DM with medication noncompliance - Patient noted to be hyperglycemic at 323 in ED - Per his family, the patient has been refusing insulin and recently has not been wanting to take his metformin - His blood sugar has been consistently in the 300's at home per his family - Gave 7 units IV regular insulin on admission - Will attempt to start 5 units lantus BID, correction factor of 50 q4h for now - While currently hyperglycemic the patient had issues with hypoglycemia last admission - Can escalate his regimen as needed (6) Stage II pressure ulcer of left ankle: Plan: -Follows with wound care clinic, currently looks stable -Heel precautions ordered, wound care nurse consulted -Turn and position q2h ordered (7) Silent aspiration: Plan: - No signs of pneumonia today - Continue minced and moist diet, honey thick water, and aspiration precautions (8) Thrombocytopenia: Plan: - Noted to be 124 on admit, per review his platelet count and anemia fluctuates - Reviewed CBC today - platelets 110 - stable (9) Stage III chronic kidney disease: Plan: - Chronic/stable - Baseline creatinine ~2.2 - Reviewed BMP today, renal function stable - Renally adjust meds when appropriate Plan DVT ppx covered with Eliquis which he takes for afib. IVF change as outlined above. Repeat labs this evening and in AM. PT/OT eval and case management to assist in dc planning. ?rehab. Will d/w Dr. Mayes. Admission and Anticipated Discharge Date Admission Date: May 27, 2022 Subjective Patient reports no new symptoms. He is a poor historian Review of Systems Review of Systems: All systems reviewed & are unremarkable except as noted in HPI & below Physical Exam Physical Exam: GENERAL: 86 yo thin/frail elderly WM. A&O x3. NAD. LUNGS: Clear to auscultation bilaterally. No W/R/R. CARDIOVASCULAR: S1 S2 irreg ABDOMEN: Soft, non-tender and non-distended. Bs normoactive x 4 quad. Urostomy bag with pale yellow urine present. Results & Data Results & Data Vital Signs (Past 12 Hours) Vital Signs Temp Pulse Pulse Pulse Resp BP Pulse Ox 05/30/22 19:54 36.4 C L 78 20 126/79 99 05/30/22 15:00 84 05/30/22 17:28 36.9 C 71 18 119/71 100 05/30/22 13:55 90 142/82 H 05/30/22 12:17 36.8 C 78 18 84/46 L 100 O2 Del Method 05/30/22 19:54 Room Air 05/30/22 15:00 05/30/22 17:28 Room Air 05/30/22 13:55 05/30/22 12:17 Room Air PG Care Time/CCT Total # of Minutes Spent Total Time Spent with Patient: Total time spent is greater than 50% in coordination of care (as documented) at patient's floor/unit and/or counseling patient: Coding Level of Care Code 56737 SUB INP/OBS CARE 2/35MIN Diagnoses Acute hypernatremia E87.0 Left leg weakness R29.898 Elevated troponin R77.8 UTI (urinary tract infection) N39.0 Hyperglycemia R73.9 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
[2022-05-30] MEDS: cefTRIAXone SODIUM 1,000 MG in DEXTROSE 5% AD-VAN 50 ML IV SCH (22:09)
[2022-05-31] MEDS: D5W AND 1/4NSS 1,000 ML IV SCH ×2 (07:26→19:36)
[2022-05-31] MEDS: SODIUM BICARBONATE 650 MG TAB PO SCH ×3 (07:27→21:39)
[2022-05-31] MEDS: APIXABAN 2.5 MG TAB PO SCH ×2 (07:27→21:39)
[2022-05-31] MEDS: CYANOCOBALAMIN (B-12) 2,500 MCG TABLET SL SCH (07:27)
[2022-05-31] MEDS: FAMOTIDINE 20 MG TAB PO SCH (07:27)
[2022-05-31] MEDS: ATORVASTATIN 40 MG TAB PO SCH (07:28)
[2022-05-31] MEDS: LANTUS PER UNIT CHARGE SQ SCH ×2 (08:11→21:39)
[2022-05-31] MEDS: INSULIN ASPART PER UNIT CHARGE SC SCH ×4 (08:11→20:42)
[2022-05-31 17:26] LABS: BUN Creatinine Ratio 34.8 (10-20); Creatinine Clr Calc Pharmacy 25.6 ml/min; Est GFR (African American) 33.8 ml/min; Est GFR (Non-African American) 29.2 ml/min; Potassium 3.4 mmol/L (3.5-5.1)
[2022-05-31] MEDS: cefTRIAXone SODIUM 1,000 MG in DEXTROSE 5% AD-VAN 50 ML IV SCH (21:39)
--- NOTE | 2022-05-31 22:46 | Hospitalist Progress Note ---
Date of Service May 31, 2022 Assessment & Plan (1) Acute hypernatremia: Plan: Hypovolemic hypernatremia d/t severe dehydration in setting of poor po intake and diarrhea - Was initially started on light NSS at 50 mL/hr, stopped and will switch to Normosol at 100 mL/hr to slowly bring his sodium down but keep his potassium stable - Continue monitoring BMP q4h to monitor his response with adequate hydration - D/C Normosol and now on D5-1/4NSS @ 100 ml/hr - Stop serial BMPs, will recheck BMP in AM sodium has gradually improved. Patient also having metabolic acidosis, will place on bicarb (started on 05/29) and continue IVF. Given acid base disturbances and hypernatremia, this is a complicated patient. will closely monitor. Sodium has slowly improved and has normalized, however, his TRAVIS has not fully resolved as well as his metabolic acidosis. Patient continues to have metabolic acidosis will recheck in AM. (2) Left leg weakness: Plan: -There was concern for possible left-sided weakness per the ED staff -After further discussions with the patient's family and exam the patient has a non-focal neuro exam -CT of the head was negative for acute changes -Patient has a history of chronic LLE ulcers which are still painful with palpation, this could be his source of pain/weakness as he is non-focal and non- tender on the rest of his exam -His acute UTI could also be contributing to any acute illness and mental status changes -Will obtain an MRI of the brain WO con for further assessment to rule out acute neurologic causes -PT/OT consults placed, fall precautions ordered -Q4h neuro checks will obtain imaging of his left ankle due to concern of osteomyelitis. will consult ortho (3) Elevated troponin: Plan: - Initial high sensitivity trop elevated at 49, patient is asymptomatic - No acute ST segment or T-wave changes - Likely due myocardial demand from his acute dehydration and illness - last trop 50.2 @ 6am, repeat pending, remains asymptomatic - again elevation is secondary to demand, no need to continue trending (4) UTI (urinary tract infection): Plan: - Noted on UA today - No hx of resistant organisms after review of previous urine cultures - S/P a dose of Ceftriaxone in the ED, continue q24h for now - Prelim urine culture growing gram neg bacilli continue Rocephin as culture is showing sensitivity (5) Hyperglycemia: Plan: Hyperglycemia secondary to uncontrolled DM with medication noncompliance - Patient noted to be hyperglycemic at 323 in ED - Per his family, the patient has been refusing insulin and recently has not been wanting to take his metformin - His blood sugar has been consistently in the 300's at home per his family - Gave 7 units IV regular insulin on admission - Will attempt to start 5 units lantus BID, correction factor of 50 q4h for now - While currently hyperglycemic the patient had issues with hypoglycemia last admission - Can escalate his regimen as needed (6) Stage II pressure ulcer of left ankle: Plan: -Follows with wound care clinic, currently looks stable -Heel precautions ordered, wound care nurse consulted -Turn and position q2h ordered (7) Silent aspiration: Plan: - No signs of pneumonia today - Continue minced and moist diet, honey thick water, and aspiration precautions (8) Thrombocytopenia: Plan: - Noted to be 124 on admit, per review his platelet count and anemia fluctuates - Reviewed CBC today - platelets 110 - stable (9) Stage III chronic kidney disease: Plan: - Chronic/stable - Baseline creatinine ~2.2 - Reviewed BMP today, renal function stable - Renally adjust meds when appropriate Plan DVT ppx covered with Eliquis which he takes for afib. IVF change as outlined above. Repeat labs this evening and in AM. PT/OT eval and case management to assist in dc planning. ?rehab. Will d/w Dr. Mayes. Admission and Anticipated Discharge Date Admission Date: May 27, 2022 Subjective 86 yo male has no new complaints. Review of Systems Review of Systems: All systems reviewed & are unremarkable except as noted in HPI & below Physical Exam Physical Exam: GENERAL: 86 yo thin/frail elderly WM. A&O x3. NAD. LUNGS: Clear to auscultation bilaterally. No W/R/R. CARDIOVASCULAR: S1 S2 irreg ABDOMEN: Soft, non-tender and non-distended. Bs normoactive x 4 quad. Urostomy bag with pale yellow urine present. Results & Data Results & Data Vital Signs (Past 12 Hours) Vital Signs Temp Pulse Pulse Resp BP Pulse Ox O2 Del Method 05/31/22 19:36 36.6 C 75 18 137/69 93 Room Air 05/31/22 16:00 90 05/31/22 12:25 37.0 C 75 18 107/62 99 Room Air PG Care Time/CCT Total # of Minutes Spent Total Time Spent with Patient: Total time spent is greater than 50% in coordination of care (as documented) at patient's floor/unit and/or counseling patient: Coding Level of Care Code 06739 SUB INP/OBS CARE 2/35MIN Diagnoses Acute hypernatremia E87.0 Left leg weakness R29.898 Elevated troponin R77.8 UTI (urinary tract infection) N39.0 Hyperglycemia R73.9 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
[2022-06-01 05:55] LABS: BUN Creatinine Ratio 31.9 (10-20); Calcium 8.1 mg/dl (8.6-10.3); Creatinine Clr Calc Pharmacy 26.9 ml/min; Potassium 3.2 mmol/L (3.5-5.1)
[2022-06-01 06:29] LABS: Hematocrit (blood only) 29.8 % (42.0-52.0); Hemoglobin 10.1 g/dl (14.0-18.0); Mean Corpuscular Hemoglobin 35.2 pg (25.0-34.0); Mean Corpuscular Hgb Conc 33.9 g/dL (32.0-36.0); Mean Corpuscular Volume 103.8 fL (80.0-100.0); Mean Platelet Volume 11.5 fL (9.4-12.4); Platelet Count 99 K/uL (130-400); Platelet Estimate Decreased (Normal); RDW Coefficient of Variation 15.1 % (11.5-14.5); RDW Standard Deviation 58.1 fL (36.4-46.3); Red Blood Count 2.87 M/uL (4.70-6.10)
[2022-06-01] MEDS: D5W AND 1/4NSS 1,000 ML IV SCH (07:41)
[2022-06-01] MEDS: SODIUM BICARBONATE 650 MG TAB PO SCH ×3 (07:42→21:12)
[2022-06-01] MEDS: APIXABAN 2.5 MG TAB PO SCH ×2 (07:42→21:12)
[2022-06-01] MEDS: ATORVASTATIN 40 MG TAB PO SCH (07:43)
[2022-06-01] MEDS: CYANOCOBALAMIN (B-12) 2,500 MCG TABLET SL SCH (07:43)
[2022-06-01] MEDS: FAMOTIDINE 20 MG TAB PO SCH (07:43)
[2022-06-01] MEDS: INSULIN ASPART PER UNIT CHARGE SC SCH ×4 (08:58→20:23)
[2022-06-01] MEDS: LANTUS PER UNIT CHARGE SQ SCH ×2 (08:59→21:11)
[2022-06-01] MEDS: D5W AND 1/2NSS + 20MEQ KCL 20 MEQ/1,000 ML BAG IV SCH (12:59)
--- NOTE | 2022-06-01 20:36 | Hospitalist Progress Note ---
Date of Service June 01, 2022 Assessment & Plan (1) Acute hypernatremia: Plan: Hypovolemic hypernatremia d/t severe dehydration in setting of poor po intake and diarrhea - Was initially started on light NSS at 50 mL/hr, stopped and will switch to Normosol at 100 mL/hr to slowly bring his sodium down but keep his potassium stable - Continue monitoring BMP q4h to monitor his response with adequate hydration - D/C Normosol and now on D5-1/4NSS @ 100 ml/hr - Stop serial BMPs, will recheck BMP in AM sodium has gradually improved. Patient also having metabolic acidosis, will place on bicarb (started on 05/29) and continue IVF. Given acid base disturbances and hypernatremia, this is a complicated patient. will closely monitor. Sodium has slowly improved and has normalized, however, his TRAVIS has not fully resolved as well as his metabolic acidosis. Bicarb is now 14 Patient continues to have metabolic acidosis (2) Left leg weakness: Plan: -There was concern for possible left-sided weakness per the ED staff -After further discussions with the patient's family and exam the patient has a non-focal neuro exam -CT of the head was negative for acute changes -Patient has a history of chronic LLE ulcers which are still painful with palpation, this could be his source of pain/weakness as he is non-focal and non- tender on the rest of his exam -His acute UTI could also be contributing to any acute illness and mental status changes -Will obtain an MRI of the brain WO con for further assessment to rule out acute neurologic causes -PT/OT consults placed, fall precautions ordered -Q4h neuro checks will obtain imaging of his left ankle due to concern of osteomyelitis. will consult ortho (3) Elevated troponin: Plan: - Initial high sensitivity trop elevated at 49, patient is asymptomatic - No acute ST segment or T-wave changes - Likely due myocardial demand from his acute dehydration and illness - last trop 50.2 @ 6am, repeat pending, remains asymptomatic - again elevation is secondary to demand, no need to continue trending (4) UTI (urinary tract infection): Plan: - Noted on UA today - No hx of resistant organisms after review of previous urine cultures - S/P a dose of Ceftriaxone in the ED, continue q24h for now - Prelim urine culture growing gram neg bacilli continue Rocephin as culture is showing sensitivity (5) Hyperglycemia: Plan: Hyperglycemia secondary to uncontrolled DM with medication noncompliance - Patient noted to be hyperglycemic at 323 in ED - Per his family, the patient has been refusing insulin and recently has not been wanting to take his metformin - His blood sugar has been consistently in the 300's at home per his family - Gave 7 units IV regular insulin on admission - Will attempt to start 5 units lantus BID, correction factor of 50 q4h for now - While currently hyperglycemic the patient had issues with hypoglycemia last admission - Can escalate his regimen as needed (6) Stage II pressure ulcer of left ankle: Plan: -Follows with wound care clinic, currently looks stable -Heel precautions ordered, wound care nurse consulted -Turn and position q2h ordered (7) Silent aspiration: Plan: - No signs of pneumonia today - Continue minced and moist diet, honey thick water, and aspiration precautions (8) Thrombocytopenia: Plan: - Noted to be 124 on admit, per review his platelet count and anemia fluctuates - Reviewed CBC today - platelets 110 - stable (9) Stage III chronic kidney disease: Plan: - Chronic/stable - Baseline creatinine ~2.2 - Reviewed BMP today, renal function stable - Renally adjust meds when appropriate Plan DVT ppx covered with Eliquis which he takes for afib. IVF change as outlined above. Repeat labs this evening and in AM. PT/OT eval and case management to assist in dc planning. ?rehab. Will d/w Dr. Mayes. Admission and Anticipated Discharge Date Admission Date: May 27, 2022 Subjective Patient resting comfortably. No new complaints. Review of Systems Review of Systems: All systems reviewed & are unremarkable except as noted in HPI & below Physical Exam Physical Exam: GENERAL: 86 yo thin/frail elderly WM. A&O x3. NAD. LUNGS: Clear to auscultation bilaterally. No W/R/R. CARDIOVASCULAR: S1 S2 irreg ABDOMEN: Soft, non-tender and non-distended. Bs normoactive x 4 quad. Urostomy bag with pale yellow urine present. Results & Data Results & Data Vital Signs (Past 12 Hours) Vital Signs Temp Pulse Pulse Resp BP Pulse Ox O2 Del Method 06/01/22 19:21 36.7 C 80 16 126/72 100 Room Air 06/01/22 15:50 36.4 C L 83 17 98/54 L 99 Room Air 06/01/22 12:35 36.8 C 59 L 17 134/82 98 Room Air PG Care Time/CCT Total # of Minutes Spent Total Time Spent with Patient: Total time spent is greater than 50% in coordination of care (as documented) at patient's floor/unit and/or counseling patient: Coding Level of Care Code 12789 SUB INP/OBS CARE 2/35MIN Diagnoses Acute hypernatremia E87.0 Left leg weakness R29.898 Elevated troponin R77.8 UTI (urinary tract infection) N39.0 Hyperglycemia R73.9 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
[2022-06-01] MEDS: cefTRIAXone SODIUM 1,000 MG in DEXTROSE 5% AD-VAN 50 ML IV SCH (21:12)
[2022-06-02] MEDS: D5W AND 1/2NSS + 20MEQ KCL 20 MEQ/1,000 ML BAG IV SCH ×2 (03:40→15:07)
[2022-06-02 07:48] LABS: Base Excess VBG -6.6 mEq/L; HCO3 VBG 17 mmol/L; Oxygen Saturation VBG 84.1 %; PCO2 VBG 28 mmHg (38-50); PO2 VBG 47 mmHg; pH VBG 7.39 (7.36-7.41)
[2022-06-02 07:50] LABS: Hematocrit (blood only) 29.3 % (42.0-52.0); Mean Corpuscular Hemoglobin 34.8 pg (25.0-34.0); Mean Corpuscular Hgb Conc 34.1 g/dL (32.0-36.0); Mean Corpuscular Volume 102.1 fL (80.0-100.0); Mean Platelet Volume 10.9 fL (9.4-12.4); Platelet Count 102 K/uL (130-400); RDW Coefficient of Variation 14.8 % (11.5-14.5); RDW Standard Deviation 55.6 fL (36.4-46.3); Red Blood Count 2.87 M/uL (4.70-6.10); White Blood Count 4.94 K/ul (4.8-10.8)
[2022-06-02] MEDS: FAMOTIDINE 20 MG TAB PO SCH (08:07)
[2022-06-02] MEDS: APIXABAN 2.5 MG TAB PO SCH ×2 (08:07→19:53)
[2022-06-02] MEDS: CYANOCOBALAMIN (B-12) 2,500 MCG TABLET SL SCH (08:07)
[2022-06-02] MEDS: ATORVASTATIN 40 MG TAB PO SCH (08:07)
[2022-06-02] MEDS: SODIUM BICARBONATE 650 MG TAB PO SCH ×3 (08:07→19:52)
[2022-06-02] MEDS: INSULIN ASPART PER UNIT CHARGE SC SCH ×4 (08:11→20:50)
[2022-06-02] MEDS: LANTUS PER UNIT CHARGE SQ SCH ×2 (08:11→20:51)
[2022-06-02 08:15] LABS: BUN Creatinine Ratio 25.9 (10-20); C Reactive Protein 2.27 mg/dl (0-0.5); Calcium 8.1 mg/dl (8.6-10.3); Creatinine Clr Calc Pharmacy 27.6 ml/min; Est GFR (African American) 37.4 ml/min; Est GFR (Non-African American) 32.3 ml/min; Magnesium 1.8 mg/dl (1.7-2.4); Phosphorus 3.1 mg/dl (2.5-4.9); Potassium 3.4 mmol/L (3.5-5.1)
--- NOTE | 2022-06-02 21:20 | Hospitalist Progress Note ---
Date of Service June 02, 2022 Assessment & Plan (1) Acute hypernatremia: Plan: Hypovolemic hypernatremia d/t severe dehydration in setting of poor po intake and diarrhea - Was initially started on light NSS at 50 mL/hr, stopped and will switch to Normosol at 100 mL/hr to slowly bring his sodium down but keep his potassium stable - Continue monitoring BMP q4h to monitor his response with adequate hydration - D/C Normosol and now on D5-1/4NSS @ 100 ml/hr - Stop serial BMPs, will recheck BMP in AM sodium has gradually improved. Patient also having metabolic acidosis, will place on bicarb (started on 05/29) and continue IVF. Given acid base disturbances and hypernatremia, this is a complicated patient. will closely monitor. Sodium has slowly improved and has normalized, however, his TRAVIS has not fully resolved as well as his metabolic acidosis. Bicarb is improving Patient continues to have metabolic acidosis WIll continue IVF (2) Left leg weakness: Plan: -There was concern for possible left-sided weakness per the ED staff -After further discussions with the patient's family and exam the patient has a non-focal neuro exam -CT of the head was negative for acute changes -Patient has a history of chronic LLE ulcers which are still painful with palpation, this could be his source of pain/weakness as he is non-focal and non- tender on the rest of his exam -His acute UTI could also be contributing to any acute illness and mental status changes -Will obtain an MRI of the brain WO con for further assessment to rule out acute neurologic causes -PT/OT consults placed, fall precautions ordered -Q4h neuro checks will obtain imaging of his left ankle due to concern of osteomyelitis. will consult ortho plan for debridement on (3) Elevated troponin: Plan: - Initial high sensitivity trop elevated at 49, patient is asymptomatic - No acute ST segment or T-wave changes - Likely due myocardial demand from his acute dehydration and illness - last trop 50.2 @ 6am, repeat pending, remains asymptomatic - again elevation is secondary to demand, no need to continue trending (4) UTI (urinary tract infection): Plan: - Noted on UA today - No hx of resistant organisms after review of previous urine cultures - S/P a dose of Ceftriaxone in the ED, continue q24h for now - Prelim urine culture growing gram neg bacilli continue Rocephin as culture is showing sensitivity (5) Hyperglycemia: Plan: Hyperglycemia secondary to uncontrolled DM with medication noncompliance - Patient noted to be hyperglycemic at 323 in ED - Per his family, the patient has been refusing insulin and recently has not been wanting to take his metformin - His blood sugar has been consistently in the 300's at home per his family - Gave 7 units IV regular insulin on admission - Will attempt to start 5 units lantus BID, correction factor of 50 q4h for now - While currently hyperglycemic the patient had issues with hypoglycemia last admission - Can escalate his regimen as needed (6) Stage II pressure ulcer of left ankle: Plan: -Follows with wound care clinic, currently looks stable -Heel precautions ordered, wound care nurse consulted -Turn and position q2h ordered (7) Silent aspiration: Plan: - No signs of pneumonia today - Continue minced and moist diet, honey thick water, and aspiration precautions (8) Thrombocytopenia: Plan: - Noted to be 124 on admit, per review his platelet count and anemia fluctuates - Reviewed CBC today - platelets 110 - stable (9) Stage III chronic kidney disease: Plan: - Chronic/stable - Baseline creatinine ~2.2 - Reviewed BMP today, renal function stable - Renally adjust meds when appropriate Plan DVT ppx covered with Eliquis which he takes for afib. IVF change as outlined above. Repeat labs this evening and in AM. PT/OT eval and case management to assist in dc planning. ?rehab. Will d/w Dr. Mayes. Admission and Anticipated Discharge Date Admission Date: May 27, 2022 Subjective Patient reports no new symptoms. Review of Systems Review of Systems: All systems reviewed & are unremarkable except as noted in HPI & below Physical Exam Physical Exam: GENERAL: 86 yo thin/frail elderly WM. A&O x3. NAD. LUNGS: Clear to auscultation bilaterally. No W/R/R. CARDIOVASCULAR: S1 S2 irreg ABDOMEN: Soft, non-tender and non-distended. Bs normoactive x 4 quad. Urostomy bag with pale yellow urine present. Results & Data Results & Data Vital Signs (Past 12 Hours) Vital Signs Temp Pulse Pulse Resp BP Pulse Ox O2 Del Method 06/02/22 19:22 36.7 C 72 18 104/65 92 Room Air 06/02/22 15:49 36.4 C L 73 18 111/72 96 Room Air 06/02/22 15:21 88 06/02/22 11:10 36.4 C L 73 18 107/61 96 Room Air PG Care Time/CCT Total # of Minutes Spent Total Time Spent with Patient: Total time spent is greater than 50% in coordination of care (as documented) at patient's floor/unit and/or counseling patient: Coding Level of Care Code 58137 SUB INP/OBS CARE 2/35MIN Diagnoses Acute hypernatremia E87.0 Left leg weakness R29.898 Elevated troponin R77.8 UTI (urinary tract infection) N39.0 Hyperglycemia R73.9 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
--- NOTE | 2022-06-02 22:16 | Consultation Report ---
DATE OF CONSULTATION: 06/02/2022 PERTINENT HISTORY: This is an 86-year-old gentleman who was seen at request of Dr. Irving Barajas and Dr. 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 He has had multiple evaluations and debridement at the [facility]; however, the ulceration continues to wax and wane with varying degrees of pain, redness, swelling and discharge. Last visit noted was 05/13/2022 at the [facility]. The patient's states that he has been using Santyl and prior to admission to the hospital, his condition appeared to be worsening. Since he has been in the hospital on IV antibiotics including Rocephin, his condition has improved. 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 The patient presented during this clinic visit due to multiple medical comorbidities, specifically symptoms of left leg weakness, acute hypernatremia, hyperglycemia and acute uremia diagnosed with acute UTI, acute kidney injury, hypernatremia with electrolyte imbalance and multiple medical comorbidities including ulceration of the left lateral ankle. There was concern regarding a possible stroke; however, that was not determined at the time of admission. During the current evaluation, the patient complains of left lateral ankle pain and his present also notes there is continued redness, swelling and discharge that occurs with dressing changes. States that the size of the left lateral ankle ulceration is slightly larger than it has been over the last several weeks. PAST MEDICAL HISTORY: Ulceration of the left lateral malleolus, ulceration anterior right knee and healed left lateral thigh ulceration hypernatremia, allergic rhinitis, age-related macular degeneration, anemia, chronic osteoarthritis, diabetes mellitus with kidney complication, dyslipidemia, hypertension, monoclonal gammopathy of unknown significance, osteopenia, peripheral neuropathy, premature ventricular contractions, proteinuria, stage III chronic kidney disease, acute kidney injury, thrombocytopenia, urothelial carcinoma of the bladder in 2010, venous insufficiency, vitamin D deficiency. PAST SURGICAL HISTORY: Colectomy in 2020, Mohs surgery for basal cell carcinoma in 2020. ALLERGIES: No known drug allergies. MEDICATIONS: Please note the significant list in the medical record. SOCIAL HISTORY: The patient is . He denies tobacco use. He is an ex- smoker, quit smoking at the age of 22. He drinks occasional beer monthly or less. Denies drug use. He lives with his spouse. He is retired. PHYSICAL EXAMINATION: This is an 86-year-old gentleman, sitting upright in the bedside chair with his and family members present. He is alert and oriented x3. Speech is clear and fluent. Affect is appropriate. No evidence of labored breathing or chest pain. Focused examination of the lower extremities demonstrates a healing anterior right knee ulceration with a clear dressing. No erythema. [facility] is on the right anterior. Left lateral malleolus, there is a 1.5 cm diameter x 0.3 cm depth chronic ulceration with exudate transudate, mild periwound erythema and slough. It does probe to the level of fascia and possibly periosteum. It is tender to palpation. He also has tenderness along the peroneal tendons, particularly along the peroneus brevis at the posterolateral aspect of the fibula. He has thin atrophic skin. Bilateral lower extremities with multiple small areas of ecchymosis with minimal subcuticular fat. He has palpable pedal pulses. Feet are cool. He does have some loss of sensation from the mid foot extending distally bilateral feet. Range of motion is symmetric. Strength is 4+/5 symmetric bilateral lower extremities. IMAGING: Radiographs and MRI were reviewed demonstrating osteopenia, osteitis with a periosteal inflammation, ulcer lateral aspect of the left lateral malleolus with increased signal in the distal lateral malleolus consistent with increased marrow edema suspicious for early osteomyelitis. Peroneus brevis tendon tear is clearly demonstrated. IMPRESSION: 1. Left lateral malleolus 1.5 cm diameter x 0.3 cm depth ulceration, chronic with erythema, periwound slough and exudate. 2. 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 3. Peroneus brevis tendon tear. 4. Hypernatremia. 5. Acute kidney injury, resolving. 6. 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 RECOMMENDATION: 1. Discussed the patient's condition with the patient and his family. At this time, recommend surgical irrigation and debridement of the ulcer with excisional debridement. 2. Debridement of the periosteum down to the level of fascia, possibly bone of the lateral malleolus, left lower extremity. 3. If tissue is amenable and there was no clear evidence of osteomyelitis, the patient would benefit from application of a skin graft substitute likely TheraSkin, it has been made available. I would prefer to use an amniotic based tissue supplement; however, that has not cleared the CVAT process at this time. I did discuss the patient's care plan with Dr. Douglas. He is in agreement. The patient will be optimized for surgical treatment on this coming Thursday. Thank you for the opportunity to consult in care of this patient. James Fuchs DO Job ID: [id number] [facility]
[2022-06-03] MEDS: D5W AND 1/2NSS + 20MEQ KCL 20 MEQ/1,000 ML BAG IV SCH ×2 (02:33→14:29)
[2022-06-03] MEDS ORDERED: INSULIN ASPART PER UNIT CHARGE SC ONE (07:35)
[2022-06-03] MEDS ORDERED: LANTUS PER UNIT CHARGE SQ ONE (07:35)
[2022-06-03 08:58] LABS: Hematocrit (blood only) 30.7 % (42.0-52.0); Hemoglobin 10.5 g/dl (14.0-18.0); Mean Corpuscular Hemoglobin 35.5 pg (25.0-34.0); Mean Corpuscular Hgb Conc 34.2 g/dL (32.0-36.0); Mean Corpuscular Volume 103.7 fL (80.0-100.0); Mean Platelet Volume 11.2 fL (9.4-12.4); Platelet Count 121 K/uL (130-400); RDW Coefficient of Variation 14.8 % (11.5-14.5); RDW Standard Deviation 56.9 fL (36.4-46.3); Red Blood Count 2.96 M/uL (4.70-6.10); White Blood Count 5.77 K/ul (4.8-10.8)
[2022-06-03] MEDS: FAMOTIDINE 20 MG TAB PO SCH (09:18)
[2022-06-03] MEDS: SODIUM BICARBONATE 650 MG TAB PO SCH ×3 (09:18→19:52)
[2022-06-03] MEDS: INSULIN ASPART PER UNIT CHARGE SC SCH ×4 (09:18→20:48)
[2022-06-03] MEDS: LANTUS PER UNIT CHARGE SQ SCH ×2 (09:18→21:03)
[2022-06-03] MEDS: CYANOCOBALAMIN (B-12) 2,500 MCG TABLET SL SCH (09:18)
[2022-06-03] MEDS: ATORVASTATIN 40 MG TAB PO SCH (09:18)
[2022-06-03 09:37] LABS: BUN Creatinine Ratio 25.8 (10-20); C Reactive Protein 2.32 mg/dl (0-0.5); Calcium 8.4 mg/dl (8.6-10.3); Creatinine Clr Calc Pharmacy 28.7 ml/min; Est GFR (African American) 39.2 ml/min; Est GFR (Non-African American) 33.8 ml/min; Potassium 4.1 mmol/L (3.5-5.1)
--- NOTE | 2022-06-03 22:43 | Hospitalist Progress Note ---
Date of Service June 03, 2022 Assessment & Plan (1) Acute hypernatremia: Plan: Hypovolemic hypernatremia d/t severe dehydration in setting of poor po intake and diarrhea - Was initially started on light NSS at 50 mL/hr, stopped and will switch to Normosol at 100 mL/hr to slowly bring his sodium down but keep his potassium stable - Continue monitoring BMP q4h to monitor his response with adequate hydration - D/C Normosol and now on D5-1/4NSS @ 100 ml/hr - Stop serial BMPs, will recheck BMP in AM sodium has gradually improved. Patient also having metabolic acidosis, will place on bicarb (started on 05/29) and continue IVF. Given acid base disturbances and hypernatremia, this is a complicated patient. will closely monitor. Sodium has slowly improved and has normalized, however, his TRAVIS has not fully resolved as well as his metabolic acidosis. Bicarb is improving Patient continues to have metabolic acidosis Will continue IVF (2) Left leg weakness: Plan: -There was concern for possible left-sided weakness per the ED staff -After further discussions with the patient's family and exam the patient has a non-focal neuro exam -CT of the head was negative for acute changes -Patient has a history of chronic LLE ulcers which are still painful with palpation, this could be his source of pain/weakness as he is non-focal and non- tender on the rest of his exam -His acute UTI could also be contributing to any acute illness and mental status changes -Will obtain an MRI of the brain WO con for further assessment to rule out acute neurologic causes -PT/OT consults placed, fall precautions ordered -Q4h neuro checks will obtain imaging of his left ankle due to concern of osteomyelitis. will consult ortho plan for debridement on (3) Elevated troponin: Plan: - Initial high sensitivity trop elevated at 49, patient is asymptomatic - No acute ST segment or T-wave changes - Likely due myocardial demand from his acute dehydration and illness - last trop 50.2 @ 6am, repeat pending, remains asymptomatic - again elevation is secondary to demand, no need to continue trending (4) UTI (urinary tract infection): Plan: - Noted on UA today - No hx of resistant organisms after review of previous urine cultures - S/P a dose of Ceftriaxone in the ED, continue q24h for now - Prelim urine culture growing gram neg bacilli continue Rocephin as culture is showing sensitivity (5) Hyperglycemia: Plan: Hyperglycemia secondary to uncontrolled DM with medication noncompliance - Patient noted to be hyperglycemic at 323 in ED - Per his family, the patient has been refusing insulin and recently has not been wanting to take his metformin - His blood sugar has been consistently in the 300's at home per his family - Gave 7 units IV regular insulin on admission - Will attempt to start 5 units lantus BID, correction factor of 50 q4h for now - While currently hyperglycemic the patient had issues with hypoglycemia last admission - Can escalate his regimen as needed (6) Stage II pressure ulcer of left ankle: Plan: -Follows with wound care clinic, currently looks stable -Heel precautions ordered, wound care nurse consulted -Turn and position q2h ordered (7) Silent aspiration: Plan: - No signs of pneumonia today - Continue minced and moist diet, honey thick water, and aspiration precautions (8) Thrombocytopenia: Plan: - Noted to be 124 on admit, per review his platelet count and anemia fluctuates - Reviewed CBC today - platelets 110 - stable (9) Stage III chronic kidney disease: Plan: - Chronic/stable - Baseline creatinine ~2.2 - Reviewed BMP today, renal function stable - Renally adjust meds when appropriate Plan DVT ppx covered with Eliquis which he takes for afib. IVF change as outlined above. Repeat labs this evening and in AM. PT/OT eval and case management to assist in dc planning. ?rehab. Will d/w Dr. Mayes. Admission and Anticipated Discharge Date Admission Date: May 27, 2022 Subjective 86 yo male reports feeling well. Review of Systems Review of Systems: All systems reviewed & are unremarkable except as noted in HPI & below Physical Exam Physical Exam: GENERAL: 86 yo thin/frail elderly WM. A&O x3. NAD. LUNGS: Clear to auscultation bilaterally. No W/R/R. CARDIOVASCULAR: S1 S2 irreg ABDOMEN: Soft, non-tender and non-distended. Bs normoactive x 4 quad. Urostomy bag with pale yellow urine present. Results & Data Results & Data Vital Signs (Past 12 Hours) Vital Signs Temp Pulse Pulse Resp BP Pulse Ox O2 Del Method 06/03/22 19:31 36.8 C 80 16 127/69 98 Room Air 03/28/23 16:01 36.5 C 73 16 107/63 94 Room Air 06/03/22 15:25 83 06/03/22 11:52 100/54 L 06/03/22 11:43 36.4 C L 102 H 16 96/58 L 94 Room Air PG Care Time/CCT Total # of Minutes Spent Total Time Spent with Patient: Total time spent is greater than 50% in coordination of care (as documented) at patient's floor/unit and/or counseling patient: Coding Level of Care Code 79164 SUB INP/OBS CARE 2/35MIN Diagnoses Acute hypernatremia E87.0 Left leg weakness R29.898 Elevated troponin R77.8 UTI (urinary tract infection) N39.0 Hyperglycemia R73.9 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
[2022-06-04] MEDS: D5W AND 1/2NSS + 20MEQ KCL 20 MEQ/1,000 ML BAG IV SCH ×2 (02:42→12:52)
[2022-06-04 06:53] LABS: Hematocrit (blood only) 28.5 % (42.0-52.0); Hemoglobin 9.7 g/dl (14.0-18.0); Mean Corpuscular Hemoglobin 34.9 pg (25.0-34.0); Mean Corpuscular Volume 102.5 fL (80.0-100.0); Mean Platelet Volume 11.4 fL (9.4-12.4); Platelet Count 123 K/uL (130-400); RDW Coefficient of Variation 14.5 % (11.5-14.5); RDW Standard Deviation 54.8 fL (36.4-46.3); Red Blood Count 2.78 M/uL (4.70-6.10); White Blood Count 4.98 K/ul (4.8-10.8)
[2022-06-04] MEDS ORDERED: fentaNYL citrate PF 100 MCG/2 ML VIAL ONE (07:05)
[2022-06-04] MEDS ORDERED: ONDANSETRON INJ 2 MG/ML 2 ML VIAL ONE (07:05)
[2022-06-04] MEDS ORDERED: PROPOFOL IV EMULSION 10 MG/ML 20 ML VIAL IV ONE ×2 (07:05→08:27)
[2022-06-04 07:14] LABS: Calcium 8.1 mg/dl (8.6-10.3); Creatinine Clr Calc Pharmacy 29.4 ml/min; Est GFR (African American) 40.3 ml/min; Est GFR (Non-African American) 34.7 ml/min; Potassium 3.9 mmol/L (3.5-5.1)
--- NOTE | 2022-06-04 07:16 | History & Physical Bridge Note ---
Date of Service June 04, 2022 History & Physical Bridge Note I have examined the patient, reviewed the History & Physical and in the interval since the performance of the History & Physical I have noted the following changes of clinical significance: no changes noted
[2022-06-04] MEDS ORDERED: ceFAZolin 2000MG 2,000 MG/15 ML SYR IV ONE (07:17)
[2022-06-04] MEDS ORDERED: ceFAZolin 2,000 MG/15 ML IV PUSH IV ONE (07:20)
[2022-06-04 07:26] LABS: INR 1.1 (0.9-1.1); Partial Thromboplastin Ratio 1.1; Partial Thromboplastin Time 30.9 Seconds (21.0-31.0); Prothrombin Time 11.4 Seconds (9.0-12.0)
[2022-06-04] MEDS ORDERED: ceFAZolin 330 MG/ML 1 GM VIAL ONE (07:35)
[2022-06-04] MEDS ORDERED: BUPIVACAINE/EPINEPHRINE 0.5% MPF 1:200,000 30 ML VIAL ONE (08:04)
[2022-06-04] MEDS ORDERED: BUPIVACAINE 0.5 % 5 MG/1 ML MPF 30ML VIAL ONE (08:04)
--- NOTE | 2022-06-04 09:06 | Anesthesiology Progress Note ---
Date of Service June 04, 2022 Anesthesia Post Procedure Vital Signs Vital Signs: Temp Pulse Pulse Resp BP Pulse Ox O2 Del Method 06/04/22 09:00 72 17 105/61 98 Nasal Cannula 06/04/22 08:50 75 18 102/46 L 98 Oxymask 06/04/22 08:43 36.6 C 74 18 97/50 L 96 Oxymask 06/04/22 06:52 36.8 C 77 20 125/71 98 Room Air 06/04/22 03:52 36.6 C 76 16 149/80 H 98 Room Air 06/03/22 23:57 81 06/03/22 23:42 37.2 C 73 16 133/76 98 Room Air 06/03/22 19:31 36.8 C 80 16 127/69 98 Room Air 06/03/22 16:01 36.5 C 73 16 107/63 94 Room Air 06/03/22 15:25 83 06/03/22 11:52 100/54 L 06/03/22 11:43 36.4 C L 102 H 16 96/58 L 94 Room Air O2 Flow Rate 06/04/22 09:00 2 06/04/22 08:50 5 06/04/22 08:43 5 06/04/22 06:52 06/04/22 03:52 06/03/22 23:57 06/03/22 23:42 06/03/22 19:31 06/03/22 16:01 06/03/22 15:25 06/03/22 11:52 06/03/22 11:43 Transfer of Care Handoff Completed per policy Notes Mental Status: alert / awake / arousable and participated in evaluation Patient Amnestic to Procedure: Yes Nausea / Vomiting: adequately controlled Pain: adequately controlled Airway Patency, RR, SpO2: stable & adequate BP & HR: stable & adequate Hydration State: stable & adequate Anesthetic Complications: no major complications apparent
--- NOTE | 2022-06-04 09:19 | Post Operative Brief Note ---
Immediate Post Op Note v1 Date of Surgery June 04, 2022 Pre & Post Diagnosis Operation Date: 06/04/22 07:30 Pre-Op Diagnosis: Left Lateral malleolus ankle Ulcer 1.5 cm diameter by 0.4 cm depth, osteitis lateral malleolus, periostitis lateral malleolus, peroneus brevis tendon tear Post-Op Diagnosis: Left Lateral malleolus ankle Ulcer 1.5 cm diameter by 0.4 cm depth, osteitis lateral malleolus, periostitis lateral malleolus, tenosynovitis peroneal tendons, peroneus brevis tendon tear I identified the patient and participated in the time-out.: Yes Procedure Operation Date: 06/04/22 07:30 Actual Procedures p Irrigation and Debridement Left Lateral Malleolus ulcer 1.5 cm Diameter X 0.4 cm depth, excisional debridement periosteum and fascia lateral malleolus ankle, Tenosynovectomy peroneal tendons, Application of Theraskin skin graft substitute lateral ankle ulcer 1.5 cm x 0.4 cm depth (Left) - James Fuchs DO Surgeon James Fuchs DO Licensed Practical Vocational Nurse None Estimated Blood Loss 3 Findings Consistent with Post-Op Diagnosis Specimens Aerobic, anaerobic, Gram stain deep ulcer lateral malleolus left ankle Anesthesia Type MAC Regional Complications none Disposition Accompanied Patient To Recovery: No
--- NOTE | 2022-06-04 10:34 | Operative Report (OR) ---
DATE OF PROCEDURE: 06/04/2022. PREOPERATIVE DIAGNOSES: 1. Left lateral malleolus ulcer 1.5 cm in diameter x 0.4 cm depth. 2. Osteitis, lateral malleolus. 3. Periostitis to the lateral malleolus. 4. Tenosynovitis of the peroneal tendons. 5. Peroneus brevis tendon tear. POSTOPERATIVE DIAGNOSES: 1. Left lateral malleolus ulcer 1.5 cm in diameter x 0.4 cm depth. 2. Osteitis, lateral malleolus. 3. Periostitis to the lateral malleolus. 4. Tenosynovitis of the peroneal tendons. 5. Peroneus brevis tendon tear. PROCEDURE: 1. Left ankle irrigation and debridement of left lateral malleolus ulceration, 1.5 cm in diameter x 0.4 cm in depth. 2. Excisional debridement including periosteum and fascia of the left lateral malleolus. 3. Tenosynovectomy of the peroneal tendons. 4. Application of TheraSkin skin graft substitute, lateral ankle ulcer, measuring 1.5 x 0.4 cm depth . SURGEON: James Fuchs DO. KENNEL AIDE: None. ANESTHESIA: MAC regional. SPECIMENS: Aerobic, anaerobic, Gram stain depth of the left lateral malleolus ulceration. DRAINS: None. COMPLICATIONS: None. 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 He has had multiple treatments an d has had a waxing and waning appearance of the ulceration. The patient had pain and swelling with l ocal erythema around the left ankle. He was admitted to the hospital for IV antibiotics and has been ongoing for several months prior. The patient had been using Santyl and prior to admission conditio n appeared to be worsening. The patient has been on Rocephin. Recent MRI at [facility] demonstrates osteitis, local periosteal reaction, possible early osteomyelitis of the left late ral malleolus with overlying ulceration and a tear of the peroneus brevis tendon. The patient was th en scheduled for surgery as indicated. All potential risks, benefits, complications, alternatives, rehab potential for incomplete relief of symptoms, need for further surgery, DVT, PE, , persistent pain, swelling, scarring, weakness, ne urovascular injury, wound complications, need for further debridement were discussed with the patient and his family, they decided to proceed with procedure as indicated. DESCRIPTION OF PROCEDURE: The patient was taken to the operative suite and placed supine on the oper ating room table. After review of consent and identification of proper operative site, the patient w as sedated. Left lower extremity was then sterilely prepped and draped in usual fashion, elevated on bolster and a bump and after surgical timeout was performed, the 1.5 x 0.4 cm depth ulceration was t hen incised with a 15 blade scalpel, excising any periwound slough. There was an overlying membrane of tissue over the ulceration, which was sharply excised. Culture was obtained, aerobic, anaerobic an d Gram stain, in the depths of the ulceration and this was passed off for specimen. Next, a 15 blade scalpel was continued to debride the local surrounding tissue to freshen the tissue to allow punctate bleeding. There was no evidence of abscess. Curettage was then performed circumfe rentially as well as the base of the ulceration down to the level of fascia, which was then sharply d ebrided due to some necrosis. This debridement was then performed with a 15 blade scalpel, excisiona l debridement of the periosteum was performed over the lateral malleolus. This was probed with a miguel rile curette. The bone was noted to be solid. There did not appear to be any defects in the bone co nsistent with osteitis rather than osteomyelitis as was concerned previously. Next, the attention was then directed toward the peroneal tendon sheath, which was noted to have feat ures of necrosis and tissue breakdown. This was sharply debrided with a 15 blade scalpel. Tenosynov ectomy was then performed of the peroneal tendons through a small defect in the peroneal tendon sheat hs. Next, after sharp debridement was performed, the pulsatile lavage, 3 liters of fluid was then used to lavage the site until clear. Next, top gloves and top sheet were changed and the appearance of the ulceration appeared to be impro alberta. In light of the fact that there appears to be no evidence of acute osteomyelitis, therefore the patient was a viable candidate for application of skin graft substitute. Next, a small piece of The Mala skin graft substitute was then appropriately trimmed and fitted for a low tension covering ove r the ulceration. Skin wally were used to hold this graft in place and then a sterile Adaptic was a pplied over the graft to protect it. Crosby in place with minimum use of skin wally. Next, a miguel rile wet-to-dry dressing was applied with sterile 4 x 4s, ABD pad, and cast padding, overwrapped with a 4-inch Skip wrap. Prior to application of the dressing, approximately 20 mL of 0.5% Marcaine plain was then injected around the site for postoperative pain control. Next, the patient was then awaken ed and taken to recovery in stable condition. Job ID: [id number]
[2022-06-04] MEDS: ATORVASTATIN 40 MG TAB PO SCH (10:39)
[2022-06-04] MEDS: CYANOCOBALAMIN (B-12) 2,500 MCG TABLET SL SCH (10:40)
[2022-06-04] MEDS: FAMOTIDINE 20 MG TAB PO SCH (10:40)
[2022-06-04] MEDS: SODIUM BICARBONATE 650 MG TAB PO SCH ×3 (10:40→21:20)
[2022-06-04] MEDS: INSULIN ASPART PER UNIT CHARGE SC SCH ×4 (10:40→21:19)
[2022-06-04] MEDS: LANTUS PER UNIT CHARGE SQ SCH ×2 (10:41→21:18)
[2022-06-04] MEDS ORDERED: traMADol HCL 50 MG TABLET PO STA (15:16)
[2022-06-04] MEDS: ACETAMINOPHEN 325 MG TAB PO SCH (17:35)
--- NOTE | 2022-06-04 23:02 | Hospitalist Progress Note ---
Date of Service June 04, 2022 Assessment & Plan (1) Acute hypernatremia: Plan: Hypovolemic hypernatremia d/t severe dehydration in setting of poor po intake and diarrhea - Was initially started on light NSS at 50 mL/hr, stopped and will switch to Normosol at 100 mL/hr to slowly bring his sodium down but keep his potassium stable - Continue monitoring BMP q4h to monitor his response with adequate hydration - D/C Normosol and now on D5-1/4NSS @ 100 ml/hr - Stop serial BMPs, will recheck BMP in AM sodium has gradually improved and normalized Patient also having metabolic acidosis, will place on bicarb (started on 05/29) and continue IVF. Given acid base disturbances and hypernatremia, this is a complicated patient. will closely monitor. however, his TRAVIS has not fully resolved as well as his metabolic acidosis. Bicarb is improving Patient continues to have metabolic acidosis Will continue IVF (2) Left leg weakness: Plan: -There was concern for possible left-sided weakness per the ED staff -After further discussions with the patient's family and exam the patient has a non-focal neuro exam -CT of the head was negative for acute changes -Patient has a history of chronic LLE ulcers which are still painful with palpation, this could be his source of pain/weakness as he is non-focal and non- tender on the rest of his exam -His acute UTI could also be contributing to any acute illness and mental status changes -Will obtain an MRI of the brain WO con for further assessment to rule out acute neurologic causes -PT/OT consults placed, fall precautions ordered -Q4h neuro checks will obtain imaging of his left ankle due to concern of osteomyelitis. Appreciate input from ortho. S/P left ankle debridement and irrigation. Plan to monitor until Thursday (3) Elevated troponin: Plan: - Initial high sensitivity trop elevated at 49, patient is asymptomatic - No acute ST segment or T-wave changes - Likely due myocardial demand from his acute dehydration and illness - last trop 50.2 @ 6am, repeat pending, remains asymptomatic - again elevation is secondary to demand, no need to continue trending (4) UTI (urinary tract infection): Plan: - Noted on UA today - No hx of resistant organisms after review of previous urine cultures - S/P a dose of Ceftriaxone in the ED, continue q24h for now - Prelim urine culture growing gram neg bacilli continue Rocephin as culture is showing sensitivity (5) Hyperglycemia: Plan: Hyperglycemia secondary to uncontrolled DM with medication noncompliance - Patient noted to be hyperglycemic at 323 in ED - Per his family, the patient has been refusing insulin and recently has not been wanting to take his metformin - His blood sugar has been consistently in the 300's at home per his family - Gave 7 units IV regular insulin on admission - Will attempt to start 5 units lantus BID, correction factor of 50 q4h for now (6) Stage II pressure ulcer of left ankle: Plan: -Follows with wound care clinic, currently looks stable -Heel precautions ordered, wound care nurse consulted -Turn and position q2h ordered (7) Silent aspiration: Plan: - No signs of pneumonia today - Continue minced and moist diet, honey thick water, and aspiration precautions (8) Thrombocytopenia: Plan: - Noted to be 124 on admit, per review his platelet count and anemia fluctuates - Reviewed CBC today - platelets 110 - stable (9) Stage III chronic kidney disease: Plan: - Chronic/stable - Baseline creatinine ~2.2 - unsure if this is truly his baseline, -May have a component of superimposed acute kidney injury. his creat has been improving with IVF. will continue to monitor his kidney function - Renally adjust meds when appropriate Plan DVT ppx covered with Eliquis which he takes for afib. Admission and Anticipated Discharge Date Admission Date: May 27, 2022 Subjective Patient reports having pain in his left heel after his procedure. Review of Systems Review of Systems: All systems reviewed & are unremarkable except as noted in HPI & below Physical Exam Physical Exam: GENERAL: 86 yo thin/frail elderly WM. A&O x3. NAD. LUNGS: Clear to auscultation bilaterally. No W/R/R. CARDIOVASCULAR: S1 S2 irreg ABDOMEN: Soft, non-tender and non-distended. Bs normoactive x 4 quad. Urostomy bag with pale yellow urine present. Results & Data Results & Data Vital Signs (Past 12 Hours) Vital Signs Temp Pulse Pulse Resp BP Pulse Ox O2 Del Method 06/04/22 19:18 36.8 C 67 16 120/63 99 Nasal Cannula 06/04/22 16:42 98 Nasal Cannula 06/04/22 15:59 36.4 C L 77 16 130/76 91 Room Air 06/04/22 15:56 80 06/04/22 11:33 36.3 C L 71 16 148/71 H 98 Room Air O2 Flow Rate 06/04/22 19:18 2 06/04/22 16:42 2 06/04/22 15:59 06/04/22 15:56 06/04/22 11:33 PG Care Time/CCT Total # of Minutes Spent Total Time Spent with Patient: Total time spent is greater than 50% in coordination of care (as documented) at patient's floor/unit and/or counseling patient: Coding Level of Care Code 28127 SUB INP/OBS CARE 2/35MIN Diagnoses Acute hypernatremia E87.0 Left leg weakness R29.898 Elevated troponin R77.8 UTI (urinary tract infection) N39.0 Hyperglycemia R73.9 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
[2022-06-05] MEDS: ACETAMINOPHEN 325 MG TAB PO SCH ×5 (00:04→23:35)
[2022-06-05] MEDS: D5W AND 1/2NSS + 20MEQ KCL 20 MEQ/1,000 ML BAG IV SCH ×2 (01:16→13:05)
[2022-06-05 07:59] LABS: Hematocrit (blood only) 25.4 % (42.0-52.0); Hemoglobin 8.7 g/dl (14.0-18.0); Mean Corpuscular Hemoglobin 35.8 pg (25.0-34.0); Mean Corpuscular Hgb Conc 34.3 g/dL (32.0-36.0); Mean Corpuscular Volume 104.5 fL (80.0-100.0); Mean Platelet Volume 11.1 fL (9.4-12.4); Platelet Count 109 K/uL (130-400); RDW Coefficient of Variation 14.6 % (11.5-14.5); RDW Standard Deviation 56.3 fL (36.4-46.3); Red Blood Count 2.43 M/uL (4.70-6.10); White Blood Count 4.06 K/ul (4.8-10.8)
[2022-06-05] MEDS: INSULIN ASPART PER UNIT CHARGE SC SCH ×4 (09:04→21:51)
[2022-06-05] MEDS: SODIUM BICARBONATE 650 MG TAB PO SCH ×3 (09:05→21:17)
[2022-06-05] MEDS: FAMOTIDINE 20 MG TAB PO SCH (09:05)
[2022-06-05] MEDS: LANTUS PER UNIT CHARGE SQ SCH ×2 (09:05→21:50)
[2022-06-05] MEDS: ATORVASTATIN 40 MG TAB PO SCH (09:05)
[2022-06-05] MEDS: CYANOCOBALAMIN (B-12) 2,500 MCG TABLET SL SCH (09:05)
--- NOTE | 2022-06-05 10:40 | Hospitalist Progress Note ---
Date of Service June 05, 2022 Assessment & Plan (1) Acute hypernatremia: Plan: acute and self limited Hypovolemic hypernatremia d/t severe dehydration in setting of poor po intake and diarrhea, improving moderate risk sodium has gradually improved and normalized (2) Left leg weakness: Plan: acute persistent moderate fall risk-There was concern for possible left-sided weakness per the ED staff, however seems secondary to pain from stage II pressure ulcer left ankle poa -After further discussions with the patient's family and exam the patient had a non-focal neuro exam -CT of the head was negative for acute changes -Patient has a history of chronic LLE ulcers which are still painful with palpation, this could be his source of pain/weakness as he is non-focal and non- tender on the rest of his exam -MRI of the brain negative for acute changes or stroke -PT/OT consults placed, fall precautions ordered - MRI of left ankle marrow edema distal left fibula S/P left ankle debridement and irrigation Dr Fuchs 06/04/22. Plan to monitor until Thursday (3) Elevated troponin: Plan: - Initial high sensitivity trop elevated at 49, repeat without significant change patient is asymptomatic - No acute ST segment or T-wave changes - Likely due myocardial demand from his acute dehydration and illness Chronic stable fib rate controlled and on eliquis - (4) UTI (urinary tract infection): Plan: acute self limited -Klebsiella uti poa, treated with iv ceftriaxone for 7 days (5) Hyperglycemia: Plan: acute uncontrolled diabetes, Hyperglycemia secondary to medication noncompliance, high risk - Per his family, the patient has been refusing insulin and recently has not been wanting to take his metformin - His blood sugar has been consistently in the 300's at home per his family basal bolus insulin at this time, consider oral agents? - Will attempt to start 5 units lantus BID, correction factor of 50 q4h for now (6) Silent aspiration: Plan: Chronic and stable No signs of pneumonia - Continue minced and moist diet, honey thick water, and aspiration precautions (7) Stage III chronic kidney disease: Plan: - Chronic/stable Plan DVT ppx covered with Eliquis which he takes for afib. Admission and Anticipated Discharge Date Admission Date: May 27, 2022 Subjective Patient was seen in the presence of his . He is mildly confused. He is having postoperative pain in his left lateral ankle. Particularly likely the s ite of the malleolus debridement from 06/04 However is confused and thinks he is going home at 330 today which he is not Physical Exam Physical Exam: Patient is oriented to person his redirects him frequently complains of pain on his left leg which is bandaged Cardiac exam is regular with a systolic murmur Lungs are clear without wheezes or crackles Results & Data Results & Data Vital Signs (Past 12 Hours) Vital Signs Temp Pulse Resp BP Pulse Ox O2 Del Method 06/05/22 08:48 97.5 F L 62 16 129/66 98 Room Air 06/05/22 03:38 97.2 F L 75 16 112/65 97 Room Air 06/04/22 23:27 98.1 F 75 16 125/71 98 Room Air Laboratory Results Reviewed CBC with postoperative acute blood loss anemia Reviewed PRP with CKD 3 PG Care Time/CCT Total # of Minutes Spent Total Time Spent with Patient: Total time spent is greater than 50% in coordination of care (as documented) at patient's floor/unit and/or counseling patient: Coding Level of Care Code 98622 SUB INP/OBS CARE 3/50MIN Diagnoses Acute hypernatremia E87.0 Left leg weakness R29.898 Elevated troponin R77.8 UTI (urinary tract infection) N39.0 Hyperglycemia R73.9 Silent aspiration T17.900A Stage III chronic kidney disease N18.3
[2022-06-05 11:37] LABS: Calcium 8.1 mg/dl (8.6-10.3); Potassium 4.1 mmol/L (3.5-5.1)
[2022-06-05 11:42] LABS: BUN Creatinine Ratio 23.8 (10-20); Est GFR (Non-African American) 36.2 ml/min
[2022-06-05] MEDS ORDERED: traMADol HCL 50 MG TABLET PO STA (21:30)
[2022-06-06] MEDS: D5W AND 1/2NSS + 20MEQ KCL 20 MEQ/1,000 ML BAG IV SCH ×2 (01:17→15:28)
[2022-06-06] MEDS: ACETAMINOPHEN 325 MG TAB PO SCH ×3 (09:09→17:05)
[2022-06-06] MEDS: LANTUS PER UNIT CHARGE SQ SCH ×2 (09:12→21:10)
[2022-06-06] MEDS: INSULIN ASPART PER UNIT CHARGE SC SCH ×4 (09:12→21:12)
[2022-06-06] MEDS: ATORVASTATIN 40 MG TAB PO SCH (09:13)
[2022-06-06] MEDS: SODIUM BICARBONATE 650 MG TAB PO SCH ×3 (09:13→21:11)
[2022-06-06] MEDS: CYANOCOBALAMIN (B-12) 2,500 MCG TABLET SL SCH (09:14)
[2022-06-06] MEDS: FAMOTIDINE 20 MG TAB PO SCH (09:14)
--- NOTE | 2022-06-06 09:39 | Hospitalist Progress Note ---
Date of Service June 06, 2022 Assessment & Plan (1) Left leg weakness: Plan: acute persistent moderate fall risk-There was concern for possible left-sided weakness per the ED staff, however seems secondary to pain from stage II pressure ulcer left ankle poa -After further discussions with the patient's family and exam the patient had a non-focal neuro exam -CT of the head was negative for acute changes -Patient has a history of chronic LLE ulcers which are still painful with palpation, this could be his source of pain/weakness as he is non-focal and non- tender on the rest of his exam -MRI of the brain negative for acute changes or stroke -PT/OT consults placed, fall precautions ordered - MRI of left ankle marrow edema distal left fibula S/P left ankle debridement and irrigation Dr Fuchs 06/04/22., culutres show Pseudomonas plus additional Gr negative, blood cultures 06/06 and started cefepime, once cultres are final will have ID recommend duration if needing iv antibiotics may need snf for administration (2) Acute hypernatremia: Plan: acute and self limited Hypovolemic hypernatremia d/t severe dehydration in setting of poor po intake and diarrhea, improving moderate risk sodium has gradually improved and normalized (3) Elevated troponin: Plan: - Initial high sensitivity trop elevated at 49, repeat without significant change patient is asymptomatic - No acute ST segment or T-wave changes - Likely due myocardial demand from his acute dehydration and illness Chronic stable fib rate controlled and on eliquis - (4) UTI (urinary tract infection): Plan: acute self limited -Klebsiella uti poa, treated with iv ceftriaxone for 7 days (5) Hyperglycemia: Plan: acute uncontrolled diabetes, Hyperglycemia secondary to medication noncompliance, high risk - Per his family, the patient has been refusing insulin and recently has not been wanting to take his metformin - His blood sugar has been consistently in the 300's at home per his family basal bolus insulin at this time, consider oral agents? - Will attempt to start 5 units lantus BID, correction factor of 50 q4h for now (6) Silent aspiration: Plan: Chronic and stable No signs of pneumonia - Continue minced and moist diet, honey thick water, and aspiration precautions (7) Stage III chronic kidney disease: Plan: - Chronic/stable Plan DVT ppx covered with Eliquis which he takes for afib. Admission and Anticipated Discharge Date Admission Date: May 27, 2022 Subjective Patient was seen in the presence of his . He is mildly confused. He is having postoperative pain in his left lateral ankle. Particularly likely the site of the malleolus debridement from 06/04 Seems much less confused today pain is only an issue when he bears weight Physical Exam Physical Exam: aware and alert x2 cardiac is regular, murmur is heard lungs are clear leg is bandaged Results & Data Results & Data Vital Signs (Past 12 Hours) Vital Signs Temp Pulse Pulse Resp BP Pulse Ox O2 Del Method 06/06/22 08:00 97.7 F 83 22 148/84 H 99 Room Air 06/06/22 03:00 97.9 F 67 20 109/87 97 Room Air 06/05/22 22:45 69 06/05/22 22:27 98.6 F 87 18 110/64 95 Room Air PG Care Time/CCT Total # of Minutes Spent Total Time Spent with Patient: Total time spent is greater than 50% in coordination of care (as documented) at patient's floor/unit and/or counseling patient: Coding Level of Care Code 31238 SUB INP/OBS CARE 2/35MIN Diagnoses Left leg weakness R29.898 Acute hypernatremia E87.0 Elevated troponin R77.8 UTI (urinary tract infection) N39.0 Hyperglycemia R73.9 Silent aspiration T17.900A Stage III chronic kidney disease N18.3
[2022-06-06] MEDS ORDERED: MEROPENEM 500 MG in SYRINGE 0 ML IV SCH (09:45)
[2022-06-06 13:53] LABS: Creatinine Clr Calc Pharmacy 29.9 ml/min; Est GFR (African American) 44.6 ml/min; Est GFR (Non-African American) 38.4 ml/min
[2022-06-06] MEDS: Cefepime 2,000 MG Extended Infusion IV SCH (18:04)
--- NOTE | 2022-06-06 20:43 | Orthopedic Progress Note ---
Date of Service June 06, 2022 Assessment & Plan (1) Diabetic ulcer of left ankle: Plan: Continue non weightbearing left lateral ankle. Dressing change QOD left ankle sterile/dry. Continue Anbx per medical svc. F/U Dr Fuchs in clinic approx one week. Call for appt upon D/C . (2) Periostitis of ankle: Admission and Anticipated Discharge Date Admission Date: May 27, 2022 Subjective He is awake and mildly confused. He is having postoperative pain in his left lateral ankle. Physical Exam Physical Exam: Dressing removed and graft site intact. Mild periwound erythema. No d/c, drainage or odor. Cap refill is brisk. Pain with ROM left ankle localized to graft site. No proximal erythema. Pedal pulses palpable. New sterile dressing applied.No calf tenderness. Neg Merlin's sign. Results & Data Vital Signs (Past 12 Hours) Vital Signs Temp Pulse Resp BP Pulse Ox O2 Del Method 06/06/22 19:48 36.6 C 87 20 146/80 H 99 Room Air 06/06/22 19:32 Room Air 06/06/22 15:30 36.4 C L 71 18 133/73 98 Room Air 06/06/22 12:32 36.5 C 71 16 137/75 98 Room Air
[2022-06-07] MEDS: ACETAMINOPHEN 325 MG TAB PO SCH ×4 (00:25→17:36)
[2022-06-07] MEDS: Cefepime 2,000 MG Extended Infusion IV SCH ×2 (06:00→18:01)
[2022-06-07 06:52] LABS: Creatinine Clr Calc Pharmacy 30.6 ml/min; Est GFR (Non-African American) 36.2 ml/min
[2022-06-07] MEDS: ATORVASTATIN 40 MG TAB PO SCH (08:32)
[2022-06-07] MEDS: FAMOTIDINE 20 MG TAB PO SCH (08:32)
[2022-06-07] MEDS: CYANOCOBALAMIN (B-12) 2,500 MCG TABLET SL SCH (08:32)
[2022-06-07] MEDS: SODIUM BICARBONATE 650 MG TAB PO SCH ×3 (08:33→21:06)
[2022-06-07] MEDS: D5W AND 1/2NSS + 20MEQ KCL 20 MEQ/1,000 ML BAG IV SCH ×2 (08:33→21:08)
[2022-06-07] MEDS: INSULIN ASPART PER UNIT CHARGE SC SCH ×4 (08:38→21:21)
[2022-06-07] MEDS: LANTUS PER UNIT CHARGE SQ SCH ×2 (08:38→21:06)
--- NOTE | 2022-06-07 16:01 | Hospitalist Progress Note ---
Date of Service June 07, 2022 Assessment & Plan (1) Left leg weakness: Plan: Mr. 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 He is now s/p debridement with Dr. Fuchs in the OR. - brain imaging showed no infarcts responsible for left leg weakness. Etiology thought to be due to osteitis which has now been debrided by Dr. Fuchs on 06/04/22 - PT/OT consults placed, fall precautions ordered --> patient is awaiting placement at [facility], bed available this coming week - ankle wound cultures showing escobar sensitive pseudomonas. Blood cultures from 06/06 showing no growth through 24 hours. Continue to follow cultures --once finalized ID recommendation regarding duration would be appreciated, as this will dictate whether IV administration is necessary for SNF setting (routine IUD consults on weekdays, only urgent consults answered on weekends) - remain on cefepime for now (2) Acute hypernatremia: Plan: acute and self limited Hypovolemic hypernatremia d/t severe dehydration in setting of poor po intake and diarrhea, improving moderate risk sodium has gradually improved and normalized (3) Elevated troponin: Plan: - Initial high sensitivity trop elevated at 49, repeat without significant change - patient is asymptomatic - No acute ST segment or T-wave changes - Likely due myocardial demand from his acute dehydration and illness (4) UTI (urinary tract infection): Plan:- - acute self limited -Klebsiella grew in urine culture - has completed treatment with iv ceftriaxone for 7 days (5) Hyperglycemia: Plan: - acute uncontrolled diabetes, Hyperglycemia secondary to medication noncompliance, high risk - Per his family, the patient has been refusing insulin and recently has not been wanting to take his metformin - His blood sugar has been consistently in the 300's at home per his family basal bolus insulin at this time, consider oral agents upon discharge, such as Jardiance given concurrent ckd - Will attempt to start 5 units lantus BID, correction factor of 50 q4h --> sugars seem to be under reasonable control today (6) Silent aspiration: Plan: - Chronic and stable - No signs of pneumonia - Continue minced and moist diet, honey thick water, and aspiration precautions (7) Stage III chronic kidney disease: Plan: - Chronic/stable (8) Afib - anticoagulated on Eliquis - rate controlled Med/Surg. DNR/DNI PVT ppx: On eliquis Admission and Anticipated Discharge Date Admission Date: May 27, 2022 Subjective No acute distress. no acute events overnight. He is eating and drinking, toileting well. He does express disatisfactoion about having to go to rehab rather than return directly home Review of Systems Review of Systems: All systems reviewed & are unremarkable except as noted in HPI & below Physical Exam Physical Exam: General Appearance: well-developed, well-nourished older adult male in no acute distress HEENT: NC/AT. Sclera anicteric. CV: +irregularly irregular rhythm. rate is normal. Lungs: CTA in all lung zapata bilaterally with equal air movement. No wheezes, rales, rhonchi or crackles. Extremities: left foot is bandaged Skin: warm, dry, and intact Neuro: AAO x 3. No focal deficits. Psych: Appropriate mood and affect. Results & Data Results & Data Vital Signs (Past 12 Hours) Vital Signs Temp Pulse Resp BP Pulse Ox O2 Del Method 06/07/22 12:16 36.6 C 75 16 152/72 H 98 Room Air 06/07/22 08:35 36.7 C 78 16 148/72 H 98 Room Air
--- NOTE | 2022-06-07 16:29 | Billing Data ---
Date of Service June 07, 2022 Coding Level of Care Code 99427 INT INP/OBS CARE
[2022-06-07] MEDS ORDERED: traMADol HCL 50 MG TABLET PO PRN (18:54)
[2022-06-08] MEDS: ACETAMINOPHEN 325 MG TAB PO SCH ×5 (00:15→23:57)
[2022-06-08 06:18] LABS: Creatinine Clr Calc Pharmacy 29.5 ml/min; Est GFR (African American) 40.3 ml/min; Est GFR (Non-African American) 34.7 ml/min
[2022-06-08] MEDS: Cefepime 2,000 MG Extended Infusion IV SCH ×2 (06:29→17:23)
[2022-06-08] MEDS: INSULIN ASPART PER UNIT CHARGE SC SCH ×4 (09:05→21:46)
[2022-06-08] MEDS: D5W AND 1/2NSS + 20MEQ KCL 20 MEQ/1,000 ML BAG IV SCH ×2 (09:06→20:07)
[2022-06-08] MEDS: LANTUS PER UNIT CHARGE SQ SCH ×2 (09:07→21:47)
[2022-06-08] MEDS: CYANOCOBALAMIN (B-12) 2,500 MCG TABLET SL SCH (09:09)
[2022-06-08] MEDS: ATORVASTATIN 40 MG TAB PO SCH (09:09)
[2022-06-08] MEDS: SODIUM BICARBONATE 650 MG TAB PO SCH ×3 (09:10→20:07)
[2022-06-08] MEDS: FAMOTIDINE 20 MG TAB PO SCH (09:10)
--- NOTE | 2022-06-08 10:33 | Hospitalist Progress Note ---
Date of Service June 08, 2022 Assessment & Plan (1) Left leg weakness: Plan: Mr. 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 He is now s/p debridement with Dr. Fuchs in the OR. - brain imaging showed no infarcts responsible for left leg weakness. Etiology thought to be due to osteitis which has now been debrided by Dr. Fuchs on 06/04/22 - PT/OT consults placed, fall precautions ordered --> patient is awaiting placement at [facility], bed available this coming week - ankle wound cultures showing escobar sensitive pseudomonas. Blood cultures from 06/06 showing no growth through 24 hours. Continue to follow cultures --once finalized ID recommendation regarding duration would be appreciated, as this will dictate whether IV administration is necessary for SNF setting (routine IUD consults on weekdays, only urgent consults answered on weekends) - remain on cefepime for now follow-up infectious disease consultation this week (2) Acute hypernatremia: Plan: acute and self limited Hypovolemic hypernatremia d/t severe dehydration in setting of poor po intake and diarrhea, improving moderate risk sodium has gradually improved and normalized (3) Elevated troponin: Plan: - Initial high sensitivity trop elevated at 49, repeat without significant change - patient is asymptomatic - No acute ST segment or T-wave changes - Likely due myocardial demand from his acute dehydration and illness (4) UTI (urinary tract infection): Plan:- - acute self limited -Klebsiella grew in urine culture - has completed treatment with iv ceftriaxone for 7 days (5) Hyperglycemia: Plan: - acute uncontrolled diabetes, Hyperglycemia secondary to medication noncompliance, high risk - Per his family, the patient has been refusing insulin and recently has not been wanting to take his metformin - His blood sugar has been consistently in the 300's at home per his family basal bolus insulin at this time, consider oral agents upon discharge, 5 units lantus BID, correction factor of 50 q4h --> sugars seem to be under reasonable control (6) Silent aspiration: Plan: - Chronic and stable - No signs of pneumonia - Continue minced and moist diet, honey thick water, and aspiration precautions (7) Stage III chronic kidney disease: Plan: - Chronic/stable (8) Afib - anticoagulated on Eliquis - rate controlled Med/Surg. DNR/DNI PVT ppx: On eliquis Admission and Anticipated Discharge Date Admission Date: May 27, 2022 Subjective Patient seen in the presence of his he is unhappy about his possibility needing IV antibiotics treatment in the facility rather than going straight to home. Will await infectious disease consultation this week to determine the duration of his antibiotic treatment given his osteitis Physical Exam Physical Exam: Patient is awake and alert x2 does have some memory impairment Cardiac exam is regular Lungs are clear Left leg dressing has been changed still operator when trying to examine even outside of the dressing. Results & Data Results & Data Vital Signs (Past 12 Hours) Vital Signs Temp Pulse Pulse Resp BP Pulse Ox O2 Del Method 06/08/22 07:22 98.1 F 69 18 138/75 97 Room Air 06/08/22 02:40 98.2 F 79 16 160/75 H 98 Room Air 06/07/22 23:06 77 06/07/22 22:59 98.2 F 83 18 132/77 97 Room Air PG Care Time/CCT Total # of Minutes Spent Total Time Spent with Patient: Total time spent is greater than 50% in coordination of care (as documented) at patient's floor/unit and/or counseling patient: Coding Level of Care Code 01250 SUB INP/OBS CARE 2/35MIN Diagnoses Left leg weakness R29.898
[2022-06-09] MEDS: Cefepime 2,000 MG Extended Infusion IV SCH ×2 (06:24→18:28)
[2022-06-09] MEDS: ACETAMINOPHEN 325 MG TAB PO SCH ×4 (06:24→23:31)
[2022-06-09 06:59] LABS: Creatinine Clr Calc Pharmacy 29.3 ml/min; Est GFR (African American) 39.4 ml/min
--- NOTE | 2022-06-09 08:02 | Hospitalist Progress Note ---
Date of Service June 09, 2022 Assessment & Plan (1) Left leg weakness: Plan: Mr. 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 He is now s/p debridement with Dr. Fuchs in the OR. - brain imaging showed no infarcts responsible for left leg weakness. Etiology thought to be due to osteitis which has now been debrided by Dr. Fuchs on 06/04/22 - PT/OT consults placed, fall precautions ordered --> patient is awaiting placement at [facility], bed available this coming week - ankle wound cultures showing escobar sensitive pseudomonas. Blood cultures from 06/06 showing no growth through 24 hours. INfectious disease recommend treatment focused on Pseudomonas for 3 weeks with IV Cefepime -Would Continue with Current dose of Cefepime 2G IV BID in setting of CKD (2) Acute hypernatremia: Plan: acute and self limited, resolved Hypovolemic hypernatremia d/t severe dehydration in setting of poor po intake and diarrhea, improving moderate risk sodium has gradually improved and normalized (3) Elevated troponin: Plan: - Initial high sensitivity trop elevated at 49, repeat without significant change - patient is asymptomatic - No acute ST segment or T-wave changes - Likely due myocardial demand from his acute dehydration and illness (4) UTI (urinary tract infection): Plan:- - acute self limited -Klebsiella grew in urine culture - has completed treatment with iv ceftriaxone for 7 days (5) Hyperglycemia: Plan: - acute uncontrolled diabetes, Hyperglycemia secondary to medication noncompliance, high risk - Per his family, the patient has been refusing insulin and recently has not been wanting to take his metformin - His blood sugar has been consistently in the 300's at home per his family basal bolus insulin at this time, consider oral agents upon discharge, 5 units lantus BID, correction factor of 50 q4h --> sugars seem to be under reasonable control (6) Silent aspiration: Plan: - Chronic and stable - No signs of pneumonia - Continue minced and moist diet, honey thick water, and aspiration precautions (7) Stage III chronic kidney disease: Plan: - Chronic/stable (8) Afib - anticoagulated on Eliquis - rate controlled Med/Surg. DNR/DNI PVT ppx: On eliquis Admission and Anticipated Discharge Date Admission Date: May 27, 2022 Subjective Patient is unhappy about his possibility needing IV antibiotics treatment in the facility rather than going straight to home. otherwise is stable Physical Exam Physical Exam: pt is awake and appropriate and in no distress, pain is controlled Results & Data Results & Data Vital Signs (Past 12 Hours) Vital Signs Temp Pulse Pulse Resp BP Pulse Ox Pulse Ox 06/09/22 07:25 97.7 F 74 19 132/81 96 06/09/22 01:15 97.9 F 64 18 141/71 H 97 06/08/22 23:21 73 06/08/22 20:07 06/08/22 20:07 98 O2 Del Method O2 Del Method 06/09/22 07:25 Room Air 06/09/22 01:15 Room Air 06/08/22 23:21 06/08/22 20:07 Room Air 06/08/22 20:07 Room Air PG Care Time/CCT Total # of Minutes Spent Total Time Spent with Patient: Total time spent is greater than 50% in coordination of care (as documented) at patient's floor/unit and/or counseling patient: Coding Level of Care Code 12608 SUB INP/OBS CARE 2/35MIN Diagnoses Left leg weakness R29.898
[2022-06-09] MEDS: ATORVASTATIN 40 MG TAB PO SCH (08:11)
[2022-06-09] MEDS: CYANOCOBALAMIN (B-12) 2,500 MCG TABLET SL SCH (08:11)
[2022-06-09] MEDS: SODIUM BICARBONATE 650 MG TAB PO SCH ×3 (08:11→20:42)
[2022-06-09] MEDS: FAMOTIDINE 20 MG TAB PO SCH (08:11)
[2022-06-09] MEDS: LANTUS PER UNIT CHARGE SQ SCH ×2 (08:16→20:41)
[2022-06-09] MEDS: INSULIN ASPART PER UNIT CHARGE SC SCH ×4 (08:16→20:41)
[2022-06-09 09:07] LABS: BUN Creatinine Ratio 26.6 (10-20); Calcium 8.5 mg/dl (8.6-10.3); Potassium 3.6 mmol/L (3.5-5.1)
--- NOTE | 2022-06-09 11:45 | Infectious Disease Consult ---
Date of Consultation June 09, 2022 Assessment & Plan (1) Periostitis of ankle: 1. L ankle wound with osteitis s/p debridement on 06/04 2. CKD Cr 1.7 86 year old male with a PMH significant for afib on eliquis, HTN, stage III CKD, dyslipidemia, adenocarcinoma of the colon S/P open subtotal colectomy in DM II, anemia and MGUS, chronic ulcerations of left leg including lateral malleolus, who presented to the [facility] ED on 05/27/22 from home [facility] for AMS and left leg pain/weakness. ID consulted for L ankle wound infection. In the ED the patient was found to be afebrile, hemodynamically stable, and stable on RA. Labs were remarkable for a CBC with WBC WNL, hgb of 11.5, MCV of 108, thrombocytopenia of 124, Cr of 2.43 (baseline appears near 2.10 after his last admission), glucose of 323, corrected sodium of 154, AG of 8, chloride of 128 with bicarb of 14, BUN of 115 (up from 66 as of 05/01/22), LFT's WNL, initial high sensitivity trop of 41.7, Chest xray negative CT of the head without contrast negative for acute pathology. MRI of L ankle showed Small focus of edema like marrow signal within the lateral aspect of the distal fibula. This is indeterminate and not well assessed due to the motion artifact. This could represent mild nonspecific edema or possibly a low-grade osteitis. Otherwise, no areas of cortical destruction to confirm the presence of an osteomyelitis within the left ankle. 06/06 Blood cultures No Growth. He underwent I+D of left lateral malleolus with application of skin graft by Dr. Fuchs on 06/04. OR cultures are growing Pseudomonas aeruginosa, without resistance. Plan -Imaging not consistent with osteomyelitis, however I suspect deep seated infection with tenosynovitis -Given this recommend treatment focused on Pseudomonas for 3 weeks with IV Cefepime -Would Continue with Current dose of Cefepime 2G IV BID in setting of CKD Thank you for this consultation I will discuss with Primary team Megha Daigle MD Infectious Diseases Consultation Information This patient recommendation is based on a telemedicine consult request which was completed asynchronously through chart review and information provided by the primary physician. The patient was not seen or examined today. The evaluation is consultative in nature and all patient care and treatment decisions can either be accepted or rejected by the patient's primary hospital-based treating physician using their own independent medical judgment for their patient. Process Design Chemical Engineer contact information: Please call [facility] Center . (Phone Number For Physician Use Only) Time Spent Reviewing Chart: 31+ minutes History of Present Illness Reason for Consultation: L ankle wound Requesting Physician: Familia Mayes MD Attending Physician: Familia Mayes MD History of Present Illness 86 year old male with a PMH significant for afib on eliquis, HTN, stage III CKD, dyslipidemia, adenocarcinoma of the colon S/P open subtotal colectomy in DM II, anemia and MGUS, chronic ulcerations of left leg including lateral malleolus, who presented to the [facility] ED on 05/27/22 from home [facility] for AMS and left leg pain/weakness. In the ED the patient was found to be afebrile, hemodynamically stable, and stable on RA. Labs were remarkable for a CBC with WBC WNL, hgb of 11.5, MCV of 108, thrombocytopenia of 124, Cr of 2.43 (baseline appears near 2.10 after his last admission), glucose of 323, corrected sodium of 154, AG of 8, chloride of 128 with bicarb of 14, BUN of 115 (up from 66 as of 05/01/22), LFT's WNL, initial high sensitivity trop of 41.7, Chest xray negative CT of the head without contrast negative for acute pathology. MRI of L ankle showed Small focus of edema like marrow signal within the lateral aspect of the distal fibula. This is indeterminate and not well assessed due to the motion artifact. This could represent mild nonspecific edema or possibly a low-grade osteitis. Otherwise, no areas of cortical destruction to confirm the presence of an osteomyelitis within the left ankle. 06/06 Blood cultures No Growth. He underwent I+D of left lateral malleolus with application of skin graft by Dr. Fuchs on 06/04. OR cultures are growing Pseudomonas Allergies Allergy/AdvReac Type Severity Reaction Status Date / Time No Known Allergies Allergy Verified 06/04/22 06:47 Home Medications Medication Instructions Recorded Confirmed Type coenzyme Q10 100 mg capsule (Co 100 mg PO QAM #30 caps 10/19/18 05/27/22 History Q-10) [id number] 5 mg-zeaxanth 1 cap PO QAM 10/19/18 05/27/22 History 1 mg-bilberry 7.5 mg-herbal capsule ([employer] Formula) fexofenadine 180 mg tablet 180 mg PO DAILY PRN Allergy 09/18/20 05/27/22 History (Ally Allergy) Symptoms acetaminophen 500 mg capsule 500 mg PO Q6H PRN Pain 12/10/20 05/27/22 History ascorbate calcium (vitamin C) 500 500 mg PO DAILY 12/10/20 05/27/22 History mg tablet cyanocobalamin (vitamin B-12) 100 100 mcg PO QAM 12/10/20 05/27/22 History mcg tablet (Vitamin B-12) apixaban 2.5 mg tablet (Eliquis) 2.5 mg PO BID #180 tabs 02/13/22 05/27/22 Rx atorvastatin 40 mg tablet (Lipitor) 40 mg PO QAM #90 tabs 03/19/22 05/27/22 Rx coffee extract 50 mg-phosphatidyl 1 tab PO HS 04/06/22 05/27/22 History serine 50 mg chewable tablet (Neuriva Original) zinc acetate 50 mg (zinc) capsule 50 mg PO DAILY 04/06/22 05/27/22 History fluconazole 100 mg tablet 100 mg PO DAILY 7 days #7 tabs 04/29/22 05/27/22 Rx linagliptin 5 mg tablet (Tradjenta) 5 mg PO DAILY #90 tabs 04/29/22 05/27/22 Rx polyethylene glycol 3350 17 gram 17 g PO DAILY PRN constipation #30 04/29/22 05/27/22 Rx oral powder packet (Miralax) ea famotidine 20 mg tablet 20 mg PO QAM #90 tabs 05/07/22 05/27/22 Rx Patient History Medical History Allergic rhinitis AMD (age related macular degeneration) Anemia Chronic osteoarthritis Diabetes mellitus with kidney complication Dyslipidemia Hypertension MGUS (monoclonal gammopathy of unknown significance) Osteopenia Peripheral neuropathy Premature ventricular contractions Proteinuria Stage III chronic kidney disease Thrombocytopenia 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 Alvarez 09/27/20 History of total cystectomy (05/2010) cystectomy w/ creation of ileal conduit (secondary to bladder caner) S/P Mohs surgery for basal cell carcinoma (04/2020) Family History Father Myocardial infarction Denies family history of Ovarian cancer Prostate cancer Breast cancer Colorectal cancer Social History Smoking Status: Unknown if ever smoked Age Started Using Tobacco: 16; Age Quit Using Tobacco: 22; Second Hand Exposure: No; Hx Alcohol Use: Yes Alcohol type: beer Alcohol Intake Frequency: Monthly or Less Hx Substance Use: No Preferred Language: Frisian Communication Ability: Impaired Visual Impairment: No Limitations Hearing Ability: Hard of Hearing 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 Operator Required: No Beliefs That Will Affect Care: Spiritual marital status: Current Living Situation: Spouse current occupational status: retired How many Children do You have: 3 Other Information That Helps Us Care for You: No Feels Safe at Home: Yes Safety Concerns: Feels Safe At This Time Childhood Exposure to Second-Hand Smoke: Yes Diet Comment: regular caffeine: No during the past year weight has: remained stable Dental Care, Regularly: Yes Physical Activity Frequency: Daily Seatbelt Use: always Sunscreen Use: Yes Assistive Devices: Hospital Bed and Walker Results & Data Vital Signs (Past 12 Hours) Vital Signs Temp Pulse Resp BP Pulse Ox O2 Del Method 06/09/22 11:16 36.5 C 52 L 19 104/55 L 93 Room Air 06/09/22 07:25 36.5 C 74 19 132/81 96 Room Air 06/09/22 01:15 36.6 C 64 18 141/71 H 97 Room Air Laboratory Results Laboratory Results - last 48 hr 06/07/22 06/07/22 06/07/22 11:50 16:27 20:42 Sodium Potassium Chloride Carbon Dioxide Anion Gap BUN Creatinine Est Cr Clr Drug Dosing Est GFR ( Amer) Est GFR (Non-Af Amer) BUN/Creatinine Ratio Glucose POC Glucose 174 H 86 132 H Calcium 06/08/22 06/08/22 06/08/22 05:34 07:54 12:09 Sodium Potassium Chloride Carbon Dioxide Anion Gap BUN Creatinine 1.74 H Est Cr Clr Drug Dosing 29.5 Est GFR ( Amer) 40.3 Est GFR (Non-Af Amer) 34.7 BUN/Creatinine Ratio Glucose POC Glucose 122 H 167 H Calcium 06/08/22 06/08/22 06/09/22 16:57 20:43 05:20 Sodium 141 Potassium 3.6 Chloride 112 H Carbon Dioxide 21 Anion Gap 8 BUN 47 H Creatinine 1.77 H Est Cr Clr Drug Dosing 29.3 Est GFR ( Amer) 39.4 Est GFR (Non-Af Amer) 34.0 BUN/Creatinine Ratio 26.6 H Glucose 62 L POC Glucose 113 H 80 Calcium 8.5 L 06/09/22 07:51 Sodium Potassium Chloride Carbon Dioxide Anion Gap BUN Creatinine Est Cr Clr Drug Dosing Est GFR ( Amer) Est GFR (Non-Af Amer) BUN/Creatinine Ratio Glucose POC Glucose 71 Calcium Microbiology 06/06/22 10:40 Blood Aerobic Blood Culture - Preliminary No growth in Aerobic bottle after 48 hours. 06/06/22 10:40 Blood Anaerobic Blood Culture - Preliminary No growth in Anaerobic bottle after 48 hours. 06/06/22 10:40 Blood Aerobic Blood Culture - Preliminary No growth in Aerobic bottle after 48 hours. 06/06/22 10:40 Blood Anaerobic Blood Culture - Preliminary No growth in Anaerobic bottle after 48 hours. 06/04/22 Unknown Ankle Gram Stain - Final 06/04/22 Unknown Ankle Aerobic and Anaerobic Culture - Preliminary Pseudomonas aeruginosa Pseudomonas aeruginosa#2 05/27/22 17:00 Urine,Clean Catch Urine Culture - Final Klebsiella pneumoniae Medications Administered Current Inpatient Medications Acetaminophen (Acetaminophen 325 Mg Tab) 650 mg PO Q6 BERE Stop: 07/04/22 17:59 Last Admin: 06/09/22 06:24 Dose: Not Given Apixaban (Apixaban 2.5 Mg Tab) 2.5 mg PO BID BERE Stop: 06/26/22 22:15 Last Admin: 06/02/22 19:53 Dose: 2.5 mg Atorvastatin Calcium (Atorvastatin 40 Mg Tab) 40 mg PO QAM BERE Stop: 06/27/22 08:59 Last Admin: 06/09/22 08:11 Dose: 40 mg Cyanocobalamin (Cyanocobalamin (B-12) 2,500 Mcg Tablet) 2,500 mcg SL QAM BERE Stop: 06/27/22 08:59 Last Admin: 06/09/22 08:11 Dose: 2,500 mcg Dextrose (Dextrose 50% 50 Ml Syringe) 25 - 50 ml IV UD PRN; Protocol PRN Reason: Hypoglycemia Protocol Stop: 06/26/22 18:22 Famotidine (Famotidine 20 Mg Tab) 20 mg PO QAM [facility] Stop: 06/27/22 08:59 Last Admin: 06/09/22 08:11 Dose: 20 mg Glucagon (Glucagon For Inj 1 Mg Vial) 1 mg SQ UD PRN; Protocol PRN Reason: Hypoglycemia Protocol Stop: 06/26/22 18:22 Glucose (Glucose 10 Tab/Tube) 4 - 8 tab PO UD PRN; Protocol PRN Reason: Hypoglycemia Treatment Stop: 06/26/22 18:22 Glucose (Glucose 40% Gel 15 Gm Tube) 15 - 30 gm PO UD PRN; Protocol PRN Reason: Hypoglycemia Protocol Stop: 06/26/22 18:22 Potassium Chloride/Dextrose/Sod Cl (D5w And 1/2nss + 20meq Kcl) 20 meq in 1,000 mls @ 80 mls/hr IV .[id number] [facility]; Protocol Stop: 07/01/22 12:44 Last Admin: 06/08/22 20:07 Dose: 80 mls/hr Cefepime HCl 2,000 mg/ (Dextrose) 120 mls @ 40 mls/hr IV Q12H [facility]; Protocol Stop: 07/18/22 17:59 Last Infusion: 06/09/22 09:24 Dose: Infused Insulin Aspart (Insulin Aspart Per Unit Charge) 0 units SC ACHS [facility] Stop: 07/02/22 11:29 Last Admin: 06/09/22 08:16 Dose: 5 units Insulin Glargine (Lantus Per Unit Charge) 5 units SQ BID [facility] Stop: 07/02/22 20:59 Last Admin: 06/09/22 08:16 Dose: 5 units Miscellaneous (Carbohydrates For Hypoglycemia ) 15 - 30 gm PO UD PRN PRN Reason: Hypoglycemia Protocol Stop: 06/26/22 18:22 Polyethylene Glycol (Polyethylene (Miralax) 17 Gm Pack) 17 gm PO DAILY PRN PRN Reason: constipation Stop: 06/26/22 22:15 Sodium Bicarbonate (Sodium Bicarbonate 650 Mg Tab) 650 mg PO TID [facility] Stop: 06/28/22 20:59 Last Admin: 06/09/22 08:11 Dose: 650 mg Tramadol HCl (Tramadol Hcl 50 Mg Tablet) 50 mg PO Q4H PRN PRN Reason: Pain Stop: 07/07/22 18:53
[2022-06-09] MEDS: D5W AND 1/2NSS + 20MEQ KCL 20 MEQ/1,000 ML BAG IV SCH ×2 (12:42→20:41)
[2022-06-10] MEDS: ACETAMINOPHEN 325 MG TAB PO SCH ×4 (05:12→23:44)
[2022-06-10] MEDS: Cefepime 2,000 MG Extended Infusion IV SCH ×2 (05:13→17:42)
[2022-06-10] MEDS: SODIUM BICARBONATE 650 MG TAB PO SCH ×3 (08:34→20:58)
[2022-06-10] MEDS: ATORVASTATIN 40 MG TAB PO SCH (08:34)
[2022-06-10] MEDS: FAMOTIDINE 20 MG TAB PO SCH (08:35)
[2022-06-10] MEDS: CYANOCOBALAMIN (B-12) 2,500 MCG TABLET SL SCH (08:35)
[2022-06-10] MEDS: LANTUS PER UNIT CHARGE SQ SCH (08:40)
[2022-06-10] MEDS: INSULIN ASPART PER UNIT CHARGE SC SCH ×4 (08:40→20:58)
--- NOTE | 2022-06-10 17:13 | Hospitalist Progress Note ---
Date of Service June 10, 2022 Assessment & Plan (1) Left leg weakness: Plan: Mr. 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 He is now s/p debridement with Dr. Fuchs in the OR. - brain imaging showed no infarcts responsible for left leg weakness. Etiology thought to be due to osteitis which has now been debrided by Dr. Fuchs on 06/04/22 - PT/OT consults placed, fall precautions ordered --> patient is awaiting placement at [facility], bed available this coming week - ankle wound cultures showing escobar sensitive pseudomonas. Blood cultures from 06/06 showing no growth through 24 hours. INfectious disease recommend treatment focused on Pseudomonas for 3 weeks with IV Cefepime -Would Continue with Current dose of Cefepime 2G IV BID in setting of CKD will need ultrasound guided iv upon transition of care (2) Acute hypernatremia: Plan: acute and self limited, resolved Hypovolemic hypernatremia d/t severe dehydration in setting of poor po intake and diarrhea, improving moderate risk sodium has gradually improved and normalized (3) Elevated troponin: Plan: - Initial high sensitivity trop elevated at 49, repeat without significant change - patient is asymptomatic - No acute ST segment or T-wave changes - Likely due myocardial demand from his acute dehydration and illness (4) UTI (urinary tract infection): Plan:- - acute self limited -Klebsiella grew in urine culture - has completed treatment with iv ceftriaxone for 7 days (5) Hyperglycemia: Plan: - acute uncontrolled diabetes, Hyperglycemia secondary to medication noncompliance, high risk - Per his family, the patient has been refusing insulin and recently has not been wanting to take his metformin - His blood sugar has been consistently in the 300's at home per his family will transtion to po medications on 06/10 (6) Silent aspiration: Plan: - Chronic and stable - No signs of pneumonia - Continue minced and moist diet, honey thick water, and aspiration precautions (7) Stage III chronic kidney disease: Plan: - Chronic/stable (8) Afib - anticoagulated on Eliquis - rate controlled DNR/DNI PVT ppx: On eliquis Admission and Anticipated Discharge Date Admission Date: May 27, 2022 Subjective Patient is unhappy about his possibility needing IV antibiotics treatment in the facility rather than going straight to home. otherwise is stable, with persistent pain to lateral left ankle updated at bedside Physical Exam Physical Exam: pt is awake and appropriate and in no distress, pain is controlled Results & Data Results & Data Vital Signs (Past 12 Hours) Vital Signs Temp Pulse Resp BP Pulse Ox O2 Del Method 06/10/22 15:42 98.4 F 72 18 108/56 L 98 Room Air 06/10/22 12:02 97.6 F 69 18 127/69 98 Room Air 06/10/22 08:00 97.9 F 82 16 123/73 98 Room Air PG Care Time/CCT Total # of Minutes Spent Total Time Spent with Patient: Total time spent is greater than 50% in coordination of care (as documented) at patient's floor/unit and/or counseling patient: Coding Level of Care Code 60543 SUB INP/OBS CARE 2/35MIN Diagnoses Left leg weakness R29.898
[2022-06-11] MEDS: ACETAMINOPHEN 325 MG TAB PO SCH ×3 (06:14→18:15)
[2022-06-11] MEDS: Cefepime 2,000 MG Extended Infusion IV SCH (06:14)
[2022-06-11 06:57] LABS: Creatinine Clr Calc Pharmacy 27.1 ml/min; Est GFR (African American) 35.5 ml/min; Est GFR (Non-African American) 30.6 ml/min
[2022-06-11] MEDS: INSULIN ASPART PER UNIT CHARGE SC SCH ×4 (07:34→20:19)
[2022-06-11] MEDS ORDERED: metFORMIN HCL 500 MG TAB PO SCH (08:00)
[2022-06-11] MEDS: glyBURIDE 2.5 MG TAB PO SCH (08:27)
[2022-06-11] MEDS: SODIUM BICARBONATE 650 MG TAB PO SCH ×3 (08:28→20:19)
[2022-06-11] MEDS: CYANOCOBALAMIN (B-12) 2,500 MCG TABLET SL SCH (08:28)
[2022-06-11] MEDS: ATORVASTATIN 40 MG TAB PO SCH (08:28)
[2022-06-11] MEDS: FAMOTIDINE 20 MG TAB PO SCH (08:28)
--- NOTE | 2022-06-11 09:07 | Hospitalist Progress Note ---
Date of Service June 11, 2022 Assessment & Plan (1) Left leg weakness: Plan: Mr. 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 He is now s/p debridement with Dr. Fuchs in the OR. - inital concern for CVA ruled out brain imaging showed no infarcts responsible for left leg weakness. Etiology thought to be due to osteitis which has now been debrided by Dr. Fuchs on 06/04/22 - - leg weakness from ankle wound cultures showing escobar sensitive pseudomonas. Blood cultures from 06/06 showing no growth through 24 hours. INfectious disease recommend treatment focused on Pseudomonas for 3 weeks with IV Cefepime LD 06/27 -Would Continue with Current dose of Cefepime 2G IV BID in setting of CKD will need ultrasound guided iv upon transition of care no weight bearing status per ortho dr Fuchs (2) Acute hypernatremia: Plan: acute and self limited, resolved Hypovolemic hypernatremia d/t severe dehydration in setting of poor po intake and diarrhea, improving moderate risk sodium has gradually improved and normalized (3) Elevated troponin: Plan: - Initial high sensitivity trop elevated at 49, repeat without significant change - patient is asymptomatic - No acute ST segment or T-wave changes - Likely due myocardial demand from his acute dehydration and illness (4) UTI (urinary tract infection): Plan:- - acute self limited -Klebsiella grew in urine culture - has completed treatment with iv ceftriaxone for 7 days (5) Hyperglycemia: Plan: - acute uncontrolled diabetes, Hyperglycemia secondary to medication noncompliance, high risk - Per his family, the patient has been refusing insulin and recently has not been wanting to take his metformin - His blood sugar has been consistently in the 300's at home per his family will transtion to po medications on 06/10 (6) Silent aspiration: Plan: - Chronic and stable - No signs of pneumonia - Continue minced and moist diet, honey thick water, and aspiration precautions (7) Stage III chronic kidney disease: Plan: - elevated CR, caution of oral diabetic med, ivf x 500 ml on 06/11/22 (8) Afib - anticoagulated on Eliquis - rate controlled DNR/DNI PVT ppx: On eliquis Admission and Anticipated Discharge Date Admission Date: May 27, 2022 Subjective Patient is unhappy about his possibility needing IV antibiotics treatment in the facility rather than going straight to home. otherwise is stable, with persistent pain to lateral left ankle updated at bedside non weight bearing status per ortho Physical Exam Physical Exam: pt is awake and appropriate and in no distress, pain is controlled Results & Data Results & Data Vital Signs (Past 12 Hours) Vital Signs Temp Pulse Resp BP Pulse Ox O2 Del Method O2 Del Method 06/11/22 07:48 97.9 F 57 L 18 136/76 96 Room Air 06/11/22 00:01 98.4 F 84 20 151/78 H 96 Room Air 06/10/22 22:00 Room Air PG Care Time/CCT Total # of Minutes Spent Total Time Spent with Patient: Total time spent is greater than 50% in coordination of care (as documented) at patient's floor/unit and/or counseling patient: Coding Level of Care Code 85370 SUB INP/OBS CARE 2/35MIN Diagnoses Left leg weakness R29.898
[2022-06-11] MEDS ORDERED: SODIUM CHLORIDE 0.9% 500 ML IV SCH (09:15)
[2022-06-11] MEDS: INFUSION IV SCH (18:15)
[2022-06-11] MEDS: CEFEPIME IV SCH (18:15)
[2022-06-12] MEDS: ACETAMINOPHEN 325 MG TAB PO SCH ×5 (00:20→23:57)
[2022-06-12] MEDS: INFUSION IV SCH ×2 (06:27→18:06)
[2022-06-12] MEDS: CEFEPIME IV SCH ×2 (06:27→18:06)
[2022-06-12 06:35] LABS: Calcium 8.5 mg/dl (8.6-10.3); Creatinine Clr Calc Pharmacy 29.5 ml/min; Est GFR (African American) 39.2 ml/min; Est GFR (Non-African American) 33.8 ml/min; Potassium 3.7 mmol/L (3.5-5.1)
[2022-06-12] MEDS: CYANOCOBALAMIN (B-12) 2,500 MCG TABLET SL SCH (08:14)
[2022-06-12] MEDS: SODIUM BICARBONATE 650 MG TAB PO SCH ×3 (08:14→20:50)
[2022-06-12] MEDS: ATORVASTATIN 40 MG TAB PO SCH (08:14)
[2022-06-12] MEDS: glyBURIDE 2.5 MG TAB PO SCH (08:14)
[2022-06-12] MEDS: FAMOTIDINE 20 MG TAB PO SCH (08:15)
[2022-06-12] MEDS: INSULIN ASPART PER UNIT CHARGE SC SCH ×4 (08:22→20:50)
--- NOTE | 2022-06-12 12:06 | Infectious Disease Progress Nt ---
Date of Service June 12, 2022 Assessment & Plan (1) Periostitis of ankle: Plan: 1. L ankle wound with osteitis s/p debridement on 06/04 2. CKD Cr 1.7 86 year old male with a PMH significant for afib on eliquis, HTN, stage III CKD, dyslipidemia, adenocarcinoma of the colon S/P open subtotal colectomy in DM II, anemia and MGUS, chronic ulcerations of left leg including lateral malleolus, who presented to the [facility] ED on 05/27/22 from home Via EMS for AMS and left leg pain/weakness. ID consulted for L ankle wound infection. In the ED the patient was found to be afebrile, hemodynamically stable, and stable on RA. Labs were remarkable for a CBC with WBC WNL, hgb of 11.5, MCV of 108, thrombocytopenia of 124, Cr of 2.43 (baseline appears near 2.10 after his last admission), glucose of 323, corrected sodium of 154, AG of 8, chloride of 128 with bicarb of 14, BUN of 115 (up from 66 as of 05/01/22), LFT's WNL, initial high sensitivity trop of 41.7, Chest xray negative CT of the head without contrast negative for acute pathology. MRI of L ankle showed Small focus of edema like marrow signal within the lateral aspect of the distal fibula. This is indeterminate and not well assessed due to the motion artifact. This could represent mild nonspecific edema or possibly a low-grade osteitis. Otherwise, no areas of cortical destruction to confirm the presence of an osteomyelitis within the left ankle. 06/06 Blood cultures No Growth. He underwent I+D of left lateral malleolus with application of skin graft by Dr. Fuchs on 06/04. OR cultures are growing Pseudomonas aeruginosa, without resistance. Plan -Imaging not consistent with osteomyelitis, however I suspect deep seated infection with tenosynovitis -Given this recommend treatment focused on Pseudomonas for 3 weeks with IV Cefepime from 06/04 OR through 06/25/22 with weekly CBC with diff and CMP -Would Continue with Current dose of Cefepime 2G IV BID in setting of CKD Discussed recs with primary team Please call ID with any questions or concerns I will s/o at this time. Megha Daigle MD Infectious Diseases Admission and Anticipated Discharge Date Admission Date: May 27, 2022 Subjective This patient recommendation is based on a telemedicine consult request which was completed asynchronously through chart review and information provided by the primary physician. The patient was not seen or examined today. The evaluation is consultative in nature and all patient care and treatment decisions can either be accepted or rejected by the patient's primary hospital-based treating physician using their own independent medical judgment for their patient. Time Spent Reviewing Chart: 21 - 30 minutes No acute events overnight Results & Data Vital Signs (Past 12 Hours) Vital Signs Temp Pulse Pulse Resp BP Pulse Ox O2 Del Method 06/12/22 08:25 36.4 C L 65 16 141/74 H 99 Room Air 06/12/22 07:49 67 06/12/22 02:42 36.6 C 76 18 144/99 H 97 Room Air Laboratory Results Laboratory Results - last 48 hr 06/10/22 06/10/22 06/11/22 16:26 20:09 06:08 Sodium Potassium Chloride Carbon Dioxide Anion Gap BUN Creatinine 1.93 H Est Cr Clr Drug Dosing 27.1 Est GFR ( Amer) 35.5 Est GFR (Non-Af Amer) 30.6 BUN/Creatinine Ratio Glucose POC Glucose 100 H 184 H Calcium 06/11/22 06/11/22 06/11/22 07:29 12:03 16:37 Sodium Potassium Chloride Carbon Dioxide Anion Gap BUN Creatinine Est Cr Clr Drug Dosing Est GFR ( Amer) Est GFR (Non-Af Amer) BUN/Creatinine Ratio Glucose POC Glucose 102 H 172 H 154 H Calcium 06/11/22 06/12/22 06/12/22 20:06 06:02 07:40 Sodium 141 Potassium 3.7 Chloride 111 H Carbon Dioxide 25 Anion Gap 5 BUN 41 H Creatinine 1.78 H Est Cr Clr Drug Dosing 29.5 Est GFR ( Amer) 39.2 Est GFR (Non-Af Amer) 33.8 BUN/Creatinine Ratio 23.0 H Glucose 122 H POC Glucose 171 H 133 H Calcium 8.5 L 06/12/22 11:40 Sodium Potassium Chloride Carbon Dioxide Anion Gap BUN Creatinine Est Cr Clr Drug Dosing Est GFR ( Amer) Est GFR (Non-Af Amer) BUN/Creatinine Ratio Glucose POC Glucose 224 H Calcium Microbiology 06/06/22 10:40 Blood Aerobic Blood Culture - Final No growth in Aerobic bottle after 5 days. 06/06/22 10:40 Blood Anaerobic Blood Culture - Final No growth in Anaerobic bottle after 5 days. 06/06/22 10:40 Blood Aerobic Blood Culture - Final No growth in Aerobic bottle after 5 days. 06/06/22 10:40 Blood Anaerobic Blood Culture - Final No growth in Anaerobic bottle after 5 days. 06/04/22 Unknown Ankle Gram Stain - Final 06/04/22 Unknown Ankle Aerobic and Anaerobic Culture - Final Pseudomonas aeruginosa Pseudomonas aeruginosa#2 05/27/22 17:00 Urine,Clean Catch Urine Culture - Final Klebsiella pneumoniae Diagnostic Findings Microbiology 06/06/22 10:40 Blood Aerobic Blood Culture - Final No growth in Aerobic bottle after 5 days. 06/06/22 10:40 Blood Anaerobic Blood Culture - Final No growth in Anaerobic bottle after 5 days. 06/06/22 10:40 Blood Aerobic Blood Culture - Final No growth in Aerobic bottle after 5 days. 06/06/22 10:40 Blood Anaerobic Blood Culture - Final No growth in Anaerobic bottle after 5 days. 06/04/22 Unknown Ankle Gram Stain - Final 06/04/22 Unknown Ankle Aerobic and Anaerobic Culture - Final Pseudomonas aeruginosa Pseudomonas aeruginosa#2 05/27/22 17:00 Urine,Clean Catch Urine Culture - Final Klebsiella pneumoniae Medications Administered Current Inpatient Medications Acetaminophen (Acetaminophen 325 Mg Tab) 650 mg PO Q6 BERE Stop: 07/04/22 17:59 Last Admin: 06/12/22 06:27 Dose: 650 mg Apixaban (Apixaban 2.5 Mg Tab) 2.5 mg PO BID BERE Stop: 06/26/22 22:15 Last Admin: 06/02/22 19:53 Dose: 2.5 mg Atorvastatin Calcium (Atorvastatin 40 Mg Tab) 40 mg PO QAM BERE Stop: 06/27/22 08:59 Last Admin: 06/12/22 08:14 Dose: 40 mg Cyanocobalamin (Cyanocobalamin (B-12) 2,500 Mcg Tablet) 2,500 mcg SL QAM BERE Stop: 06/27/22 08:59 Last Admin: 06/12/22 08:14 Dose: 2,500 mcg Dextrose (Dextrose 50% 50 Ml Syringe) 25 - 50 ml IV UD PRN; Protocol PRN Reason: Hypoglycemia Protocol Stop: 06/26/22 18:22 Famotidine (Famotidine 20 Mg Tab) 20 mg PO QAM BERE Stop: 06/27/22 08:59 Last Admin: 06/12/22 08:15 Dose: 20 mg Glucagon (Glucagon For Inj 1 Mg Vial) 1 mg SQ UD PRN; Protocol PRN Reason: Hypoglycemia Protocol Stop: 06/26/22 18:22 Glucose (Glucose 10 Tab/Tube) 4 - 8 tab PO UD PRN; Protocol PRN Reason: Hypoglycemia Treatment Stop: 06/26/22 18:22 Glucose (Glucose 40% Gel 15 Gm Tube) 15 - 30 gm PO UD PRN; Protocol PRN Reason: Hypoglycemia Protocol Stop: 06/26/22 18:22 Glyburide (Glyburide 2.5 Mg Tab) 2.5 mg PO QDB BERE Stop: 07/11/22 07:29 Last Admin: 06/12/22 08:14 Dose: 2.5 mg Cefepime HCl 1,000 mg/ (Dextrose) 110 mls @ 36.667 mls/hr IV Q12H BERE; Protocol Stop: 06/25/22 17:59 Last Infusion: 06/12/22 09:26 Dose: Infused Insulin Aspart (Insulin Aspart Per Unit Charge) 0 units SC ACHS BERE Stop: 07/02/22 11:29 Last Admin: 06/12/22 08:22 Dose: Not Given Miscellaneous (Carbohydrates For Hypoglycemia ) 15 - 30 gm PO UD PRN PRN Reason: Hypoglycemia Protocol Stop: 06/26/22 18:22 Polyethylene Glycol (Polyethylene (Miralax) 17 Gm Pack) 17 gm PO DAILY PRN PRN Reason: constipation Stop: 06/26/22 22:15 Sodium Bicarbonate (Sodium Bicarbonate 650 Mg Tab) 650 mg PO TID BERE Stop: 06/28/22 20:59 Last Admin: 06/12/22 08:14 Dose: 650 mg Tramadol HCl (Tramadol Hcl 50 Mg Tablet) 50 mg PO Q4H PRN PRN Reason: Pain Stop: 07/07/22 18:53
--- NOTE | 2022-06-12 14:12 | Hospitalist Progress Note ---
Date of Service June 12, 2022 Assessment & Plan (1) Left leg weakness: Plan: Mr. 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 He is now s/p debridement with Dr. Fuchs in the OR. - inital concern for CVA ruled out brain imaging showed no infarcts responsible for left leg weakness. Etiology thought to be due to osteitis which has now been debrided by Dr. Fuchs on 06/04/22 - - leg weakness from ankle wound cultures showing escobar sensitive pseudomonas. Blood cultures from 06/06 showing no growth through 24 hours. INfectious disease recommend treatment focused on Pseudomonas for 3 weeks with IV Cefepime LD 06/27 -Would Continue with Current dose of Cefepime 2G IV BID in setting of CKD will obtain PICC line/ consent in chart. no weight bearing status per ortho dr Fuchs -restarted eliquis (2) Acute hypernatremia: Plan: acute and self limited, resolved Hypovolemic hypernatremia d/t severe dehydration in setting of poor po intake and diarrhea, improving moderate risk sodium has gradually improved and normalized (3) Elevated troponin: Plan: - Initial high sensitivity trop elevated at 49, repeat without significant change - patient is asymptomatic - No acute ST segment or T-wave changes - Likely due myocardial demand from his acute dehydration and illness (4) UTI (urinary tract infection): Plan:- - acute self limited -Klebsiella grew in urine culture - has completed treatment with iv ceftriaxone for 7 days (5) Hyperglycemia: Plan: - acute uncontrolled diabetes, Hyperglycemia secondary to medication noncompliance, high risk - Per his family, the patient has been refusing insulin and recently has not been wanting to take his metformin - His blood sugar has been consistently in the 300's at home per his family will transtion to po medications on 06/10 (6) Silent aspiration: Plan: - Chronic and stable - No signs of pneumonia - Continue minced and moist diet, honey thick water, and aspiration precautions (7) Stage III chronic kidney disease: Plan: - elevated CR, caution of oral diabetic med, ivf x 500 ml on 06/11/22 (8) Afib - anticoagulated on Eliquis - rate controlled DNR/DNI PVT ppx: On eliquis Admission and Anticipated Discharge Date Admission Date: May 27, 2022 Subjective Patient reports no new symptoms. Review of Systems Review of Systems: All systems reviewed & are unremarkable except as noted in HPI & below Physical Exam Physical Exam: GENERAL: 86 yo thin/frail elderly WM. A&O x3. NAD. LUNGS: Clear to auscultation bilaterally. No W/R/R. CARDIOVASCULAR: S1 S2 irreg ABDOMEN: Soft, non-tender and non-distended. Bs normoactive x 4 quad. Urostomy bag with pale yellow urine present. Results & Data Results & Data Vital Signs (Past 12 Hours) Vital Signs Temp Pulse Pulse Resp BP Pulse Ox O2 Del Method 06/12/22 12:05 36.8 C 57 L 18 157/75 H 100 Room Air 06/12/22 08:25 36.4 C L 65 16 141/74 H 99 Room Air 06/12/22 07:49 67 06/12/22 02:42 36.6 C 76 18 144/99 H 97 Room Air PG Care Time/CCT Total # of Minutes Spent Total Time Spent with Patient: Total time spent is greater than 50% in coordination of care (as documented) at patient's floor/unit and/or counseling patient: Coding Level of Care Code 37803 SUB INP/OBS CARE 2/35MIN Diagnoses Left leg weakness R29.898
[2022-06-12] MEDS ORDERED: APIXABAN 2.5 MG TAB PO ONE (21:32)
[2022-06-13] MEDS: ACETAMINOPHEN 325 MG TAB PO SCH ×2 (05:39→12:26)
[2022-06-13] MEDS: INFUSION IV SCH (05:39)
[2022-06-13] MEDS: CEFEPIME IV SCH (05:39)
[2022-06-13 06:40] LABS: BUN Creatinine Ratio 25.4 (10-20); Calcium 8.4 mg/dl (8.6-10.3); Creatinine Clr Calc Pharmacy 29.7 ml/min; Est GFR (African American) 39.4 ml/min; Potassium 3.8 mmol/L (3.5-5.1)
[2022-06-13] MEDS: CYANOCOBALAMIN (B-12) 2,500 MCG TABLET SL SCH (08:29)
[2022-06-13] MEDS: SODIUM BICARBONATE 650 MG TAB PO SCH (08:29)
[2022-06-13] MEDS: FAMOTIDINE 20 MG TAB PO SCH (08:30)
[2022-06-13] MEDS: ATORVASTATIN 40 MG TAB PO SCH (08:30)
[2022-06-13] MEDS: glyBURIDE 2.5 MG TAB PO SCH (08:30)
[2022-06-13] MEDS: INSULIN ASPART PER UNIT CHARGE SC SCH ×2 (09:04→11:51)
[2022-06-13] MEDS: APIXABAN 2.5 MG TAB PO SCH (09:40)
--- NOTE | 2022-06-13 12:40 | Discharge Summary ---
Date of Service June 13, 2022 Admission HPI Per Admitting Provider Raphael is an 86 year old male with a PMH significant for afib on eliquis, HTN, stage III CKD, dyslipidemia, adenocarcinoma of the colon S/P open subtotal colectomy in 2020 (follows with Heme/onc and currently on surveillance), DM II, anemia and MGUS who presented to the [facility] ED on 05/27/22 from home Via EMS for AMS and left leg pain/weakness. In the ED the patient was found to be afebrile, hemodynamically stable, and stable on RA. Labs were remarkable for a CBC with WBC WNL, hgb of 11.5, MCV of 108, thrombocytopenia of 124, Cr of 2.43 (baseline appears near 2.10 after his last admission), glucose of 323, corrected sodium of 154, AG of 8, chloride of 128 with bicarb of 14, BUN of 115 (up from 66 as of 05/01/22), LFT's WNL, initial high sensitivity trop of 41.7, UA suggestive of UTI. Chest xray was read as "No acute chest disease.". CT of the head without con was read as "There is no hemorrhage, mass effect, or evidence of acute territorial ischemia by CT criteria.". Prior to admission the patient was started on light IV hydration of NSS at 50 mL/hr. At the time of the exam the patient was lying in bed in no acute distress with his and daughter standing bedside, history was mainly obtained from his family due to his baseline mental status. They state that he had been in his normal state of health until this am when he appeared to be more fatigued and slow to respond. The patient was able to eat breakfast and check his blood sugar as part of his normal routine. Later in the morning the patient was downstairs and called his down. When she came downstairs that patient was standing but having to lean the left side of his body on the wall for support. She was able to assist him up approximately 10 steps to their first floor, she notes that he was significantly SOB while walking up the steps. They were able to get him to their bed and his symptoms improved with rest. He was complaining of left foot pain but was having difficulty localizing the pain. The patient has been having adequate urostomy output and they state that he has still been eating and drinking well. His last BM was approximately 3 days ago, prior to that he had 2 days of loose bowel movements without blood. He has not had recent fevers, chills, changes in vision, hearing, taste, and smell, chest pain, abd pain, nausea, vomiting, hematuria, LE swelling and recent trauma. The patient follows with the wound clinic for chronic wounds on his BL LE's and right hip. His clarified that the patient's antibiotic and Diflucan as his wounds are healing well. The patient himself denies any pain or complaints at this time. Please refer to Dr. Barajas's attestation for any changes to the treatment plan Principal Diagnosis acute kidney failure Discharge Exam GENERAL: 86 yo thin/frail elderly WM. A&O x3. NAD. LUNGS: Clear to auscultation bilaterally. No W/R/R. CARDIOVASCULAR: S1 S2 irreg ABDOMEN: Soft, non-tender and non-distended. Bs normoactive x 4 quad. Urostomy bag with pale yellow urine present. Discharge Data Allergies Allergy/AdvReac Type Severity Reaction Status Date / Time No Known Allergies Allergy Verified 06/04/22 06:47 Consultations 05/31/22 16:39 Consult Orthopedic Surgery Routine 06/09/22 08:20 Consult Infectious Diseases Routine Procedures Performed Operation Date: 06/04/22 07:30 Actual Procedures p Irrigation and Debridement Left Lateral Malleolus 1.5 cm Diameter Ulcer Debridement, Application of Theraskin(Left) - James Fuchs, Ordered Studies 05/27/22 13:52 CT head/brain wo con Stat 05/27/22 19:03 MRI Brain [MR brain wo con] Routine 05/30/22 11:10 MR ankle LT wo con Routine Hospital Course (1) Left leg weakness: Mr. 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 He is now s/p debridement with Dr. Fuchs in the OR. - inital concern for CVA ruled out brain imaging showed no infarcts responsible for left leg weakness. Etiology thought to be due to osteitis which has now been debrided by Dr. Fuchs on 06/04/22 - - leg weakness from ankle wound cultures showing escobar sensitive pseudomonas. Blood cultures from 06/06 showing no growth through 24 hours. INfectious disease recommend treatment focused on Pseudomonas for 3 weeks with IV Cefepime LD 06/27 -Would Continue with Current dose of Cefepime 2G IV BID in setting of CKD will obtain PICC line/ consent in chart. no weight bearing status per ortho dr Fuchs -restarted eliquis will f/u with Dr. Fuchs next week (2) Acute hypernatremia: Plan: acute and self limited, resolved Hypovolemic hypernatremia d/t severe dehydration in setting of poor po intake and diarrhea, improving moderate risk sodium has gradually improved and normalized (3) Elevated troponin: Plan: - Initial high sensitivity trop elevated at 49, repeat without significant shin e - patient is asymptomatic - No acute ST segment or T-wave changes - Likely due myocardial demand from his acute dehydration and illness (4) UTI (urinary tract infection): Plan:- - acute self limited -Klebsiella grew in urine culture - has completed treatment with iv ceftriaxone for 7 days (5) Hyperglycemia: Plan: - acute uncontrolled diabetes, Hyperglycemia secondary to medication noncompliance, high risk - Per his family, the patient has been refusing insulin and recently has not been wanting to take his metformin - His blood sugar has been consistently in the 300's at home per his family will transtion to po medications on 06/10 (6) Silent aspiration: Plan: - Chronic and stable - No signs of pneumonia - Continue minced and moist diet, honey thick water, and aspiration precautions (7) Stage III chronic kidney disease: Plan: - elevated CR, caution of oral diabetic med, ivf x 500 ml on 06/11/22 (8) Afib - anticoagulated on Eliquis - rate controlled Total Time Total Time Spent Total Time Spent (In Minutes): 32 Discharge Plan Discharge Items Patient Disposition: Transfer Assisted Fac Reason For Visit: AMS Discharge Diagnosis: AMS Activity: Resume your previous activity Non-emergency contact: Primary Care Provider Call non-emergency contact if: you have any medication questions Follow-up/Referrals: Carlito Caro CRNP [Primary Care Provider] - Diet: Carb Consistent or DM2 Liquid Consistency: [place] thick Diet Comment: minced and moist Addtl Attending Provider Instructions: Infectious disease recommend treatment focused on Pseudomonas for 3 weeks with IV Cefepime Last dose on 06/27 weekly CBC with diff and CMP Cefepime 1 gr IV twice a day. Dose given at 9 am and 9 pm. Please call [phone] for an appointment with Dr. Fuchs He would like to see patient on 06/23 Please call today. Continue non weightbearing left lateral ankle. Dressing change QOD left ankle sterile/dry. C Pending Studies at Discharge: No Stand-Alone Forms: My [facility] Skilled Items Patient informed of condition?: Yes DNR: No Discharge Level of Care: Skilled Communicable Disease: No Discharge Prognosis: Stable Lines: Mid-Line Urinary Catheter: No (Urostomy) Medications and DC Order Prescriptions: New tramadol 50 mg Tablet 50 mg PO Q4H PRN (Reason: severe pain) Qty: 10 0RF cefepime 1 gram recon soln 1 g IV Q12H Qty: 29 0RF Rx Instructions: through 06/27/22 with weekly CBC with diff and CMP Continued Eliquis 2.5 mg tablet 2.5 mg PO BID Qty: 180 1RF Rx Instructions: [id number] atorvastatin [Lipitor] 40 mg tablet 40 mg PO QAM Qty: 90 1RF polyethylene glycol 3350 [Miralax] 17 gram powder in packet 17 g PO DAILY PRN (Reason: constipation) Qty: 30 0RF Tradjenta 5 mg tablet 5 mg PO DAILY Qty: 90 3RF famotidine 20 mg tablet 20 mg PO QAM Qty: 90 1RF acetaminophen 500 mg capsule 500 mg PO Q6H PRN (Reason: Pain) ascorbate calcium (vitamin C) 500 mg tablet 500 mg PO DAILY Macular Health Formula 5-1-7.5 mg capsule 1 cap PO QAM coenzyme Q10 [Co Q-10] 100 mg capsule 100 mg PO QAM Qty: 30 cyanocobalamin (vitamin B-12) [Vitamin B-12] 100 mcg tablet 100 mcg PO QAM Rx Instructions: 2500mcg PO daily; zinc acetate 50 mg (zinc) Capsule 50 mg PO DAILY Neuriva Original 50-50 mg Tablet,Chewable 1 tab PO HS Discontinued fluconazole 100 mg tablet 100 mg PO DAILY 7 Days Qty: 7 0RF fexofenadine [Ally Allergy] 180 mg Tablet 180 mg PO DAILY PRN (Reason: Allergy Symptoms) Discharge Orders: Discharge Order (Routine); Ordered 06/13/22 Ordered By: Raphael Zarate/Other Patient Handouts: High Blood Sugar (Hyperglycemia), Hypoglycemia (Low Blood Sugar), Managing Type 2 Diabetes Admission Data Admit Date/Time: 05/27/22 18:21 Attending Provider: Raphael Douglas Admit Provider: Irving Barajas Primary Care Provider: Carlito Caro Other Providers: [facility] ; Mendoza Benjamin [facility] [place] ; James Fuchs ; Kathleen Alba ; Alvaro Camacho ; Keira Miller ; Kranthi Matos ; Kelly Martínez ; Megha Daigle ; Cherie Rocha ; Daria Rand ; Teri Acuña ; Mendoza Kevin Other Interventions: Discharge Summary Assessment (RN) Last Done: 06/13/22 12:33 Coding Level of Care Code 48101 INP/OBS DISCH >30 MIN Diagnoses Left leg weakness R29.898
== END 2022-06-13 12:58 | DRG 982 ==
LOC: ED 12:57 → 4W 18:21 → SUATTDRO 18:21 → 4W 20:15

== ENCOUNTER 2022-08-21 13:57 | Inpatient (IN) ==
--- NOTE | 2022-08-21 15:15 | XRay Report ---
XR chest 1V not portable HISTORY: 86 years-old Male illness acute illness with hyperglycemia COMPARISON: 05/27/2022 TECHNIQUE: AP view chest. FINDINGS: Innumerable calcified granulomata of the lungs redemonstrated within an upper lung zone predominant d istribution. Cardiomediastinal and hilar silhouettes are within normal limits. No pneumothorax, pleur al effusion or airspace consolidation. Bones appear grossly intact. IMPRESSION: 1. No acute process. 2. Prior granulomatous disease. ACT 112: Negative or not required by law. The above report was generated using voice recognition software. It may contain grammatical, syntax o r spelling errors. Electronically signed by: Parish Robles M.D. 08/21/2022 3:14 PM
[2022-08-21 15:22] LABS: Hematocrit (blood only) 40.5 % (42.0-52.0); Hemoglobin 13.3 g/dl (14.0-18.0); Mean Corpuscular Hemoglobin 33.2 pg (25.0-34.0); Mean Corpuscular Hgb Conc 32.8 g/dL (32.0-36.0); Mean Platelet Volume 11.5 fL (9.4-12.4); Platelet Count 152 K/uL (130-400); RDW Coefficient of Variation 14.9 % (11.5-14.5); RDW Standard Deviation 55.7 fL (36.4-46.3); Red Blood Count 4.01 M/uL (4.70-6.10); White Blood Count 3.44 K/ul (4.8-10.8)
[2022-08-21 15:40] LABS: Acanthocytes 2+; Basophils # (auto) 0.02 K/uL (0-0.2); Basophils % (auto) 0.6 %; Dohle Bodies 1+; Eosinophils # (auto) 0.05 K/uL (0-0.50); Eosinophils % (auto) 1.5 %; Immature Granulocytes # (auto) 0.02 K/uL (0.01-0.20); Immature Granulocytes % (auto) 0.6 %; Lymphocytes # (auto) 0.49 K/uL (1.2-3.4); Lymphocytes % (auto) 14.2 %; Monocytes # (auto) 0.22 K/uL (0.11-0.59); Monocytes % (auto) 6.4 %; Neutrophils # (auto) 2.64 K/uL (1.40-6.50); Neutrophils % (auto) 76.7 %
[2022-08-21 15:45] LABS: Albumin Globulin Ratio 1.3 (0.9-2); BUN Creatinine Ratio 56.5 (10-20); Bilirubin,Total 0.5 mg/dl (0.2-1.0); Calcium 9.5 mg/dl (8.6-10.3); Creatinine Clr Calc Pharmacy 26.2 ml/min; Est GFR (African American) 37.1 ml/min; Globulin 3.1 gm/dl (2.5-4.0); INR 1.1 (0.9-1.1); Partial Thromboplastin Time 28.6 Seconds (21.0-31.0); Potassium 3.6 mmol/L (3.5-5.1); Prothrombin Time 11.6 Seconds (9.0-12.0); Total Protein 7.1 gm/dl (6.0-8.3)
[2022-08-21] MEDS ORDERED: SODIUM CHLORIDE 0.9% 1000ML 1,000 ML IV ONE (16:00)
--- NOTE | 2022-08-21 16:17 | Emergency Department Note ---
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 They report that the patient has been in and out of the hospital over the past year and recently returned home from discharge from rehab facility at the beginning of July and been doing well but over the past couple of days noted a change where he did not want to do his exercises or go outside as usual. Denies any fevers, cough, congestion. They feel that he has been attempting to hydrate. They report he has had minimal appetite and they are unsure of why his blood sugars are so high. Of note, the patient did arrive to emergency department during time of high volume, acuity and prolonged emergency department waiting times. Critical pathways initiated from triage. On my evaluation, the patient is fatigued/ill appearing but no acute distress, afebrile with heart in the 100s and vital signs otherwise stable. He appears clinically dry with dry-cracked mucous membranes and skin tenting. He exhibits mild confusion to situation but is alert to self and place. He attempts to remove his EKG leads but is easily redirected. Abdomen is nontender. Urostomy site is clean dry and intact. He moves all extremities equally. EKG demonstrates atrial fibrillation with lateral ST abnormality/depression related to electrolyte shifts in the setting of his hyperglycemia. Patient denies chest pain or shortness of breath. WBC 3.4K nonspecific. H/H 13.3/40.5 increased from last month. Platelets within normal limits. Chemistry demonstrates nonanion gap metabolic acidosis with bicarbonate of 15 creatinine of 1.8 approximate to his recent baseline but with BUN of 105. Glucose is 544 so sodium corrects to 160 with a calculated free water deficit of approximately 4.5L. LFTs are unremarkable. Given the patient's severity of dehydration and hyperglycemia the family do agree with plan for admission for further management. Following initial 1 L of normal saline the patient's glucose did improve to 450. Insulin drip ordered as well as Plasma-Lyte maintenance. UA is consistent with infection. Blood cultures drawn. Case was d/w NIRANJAN Pena PG, PA-C with Dr. Graves [facility] [place] [place] hospitalist who will evaluate the patient for admission. Further management including antibiotics per admitting team. Triage Nursing notes reviewed and agree them. Prior/outside medical records reviewed Vital Signs: reviewed Differential diagnosis: Infection, dehydration, metabolic abnormality, hypo/hyperglycemia, electrolyte disturbance, anemia, hypoxia, cardiac sources, intracerebral event, toxicologic, neurologic, as well as other pathologies. ER treatment provided: See below. Diagnostics interpreted by me: ECG: Atrial fibrillation with RVR, 106 bpm, ST and T wave abnormality, no overt ST elevation, QTc 425, QRS 96 Cardiac Monitoring: An order for continuous cardiac monitoring was placed and demonstrated atrial fibrillation, RVR, 106 bpm Laboratory studies: See below Imaging studies: See below Consultation(s): Case was d/w Dr. Graves [facility] [place] [place] hospitalist who will evaluate the patient for admission. 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 They report that the lee ent has been in and out of the hospital over the past year and recently returned home from discharge from rehab facility at the beginning of July and been doing well but over the past couple of days noted a change where he did not want to do his exercises or go outside as usual. Denies any fevers, cough, congestion. They feel that he has been attempting to hydrate. They report he has had minimal appetite and they are unsure of why his blood sugars are so high. ROS: See above HPI for pertinent positives & negatives. A total of 10 systems reviewed and were otherwise negative. VITALS:See Below PHYSICAL EXAMINATION: GENERAL: Awake, alert, fatigued/ill-appearing, in no distress HENT: Normocephalic, atraumatic. Oropharynx dry cracked mucous membranes. EYES: Normal conjunctiva. Sclera non-icteric. EOMI. No nystamgus. PEARRL. NECK: Supple. No nuchal rigidity. FROM. No JVD. RESPIRATORY: Clear to auscultation. CARDIAC: Regular rate, normal rhythm. Extremities warm and well perfused. Pulses equal. ABDOMEN: Soft, non-distended. No tenderness to palpation. No rebound or guarding. Lower abdominal urostomy clean dry and intact. MUSCULOSKELETAL: Chest examination reveals no tenderness. The back is symmetrical on inspection without obvious abnormality. There is no CVA tenderness to palpation. No joint edema. LOWER EXTREMITIES: Calves are equal size bilaterally and non-tender. No edema. No discoloration. NEURO: Mild confusion and disorientation but redirectable. No focal sensory or motor deficits noted. SKIN: Dry with skin tenting. No rash or jaundice noted. ED COURSE: I have personally spent greater than 75 minutes of critical care time in the direct management of this patient. This includes bedside care, interpretation of diagnostic studies, and testing, discussion with consultants, patient, and family members, and other required patient management activities. This 75 m inutes is in excess of all separately billable procedures. Kevin Cheung MD Past Med/Surg History Medical History (Updated 08/21/22 @ 18:27 by Olman Santos PA-C) Allergic rhinitis AMD (age related macular degeneration) Anemia Chronic osteoarthritis Diabetes mellitus with kidney complication Dyslipidemia Hypertension MGUS (monoclonal gammopathy of unknown significance) Osteopenia Peripheral neuropathy Premature ventricular contractions Proteinuria Stage 3b chronic kidney disease Stage III chronic kidney disease Thrombocytopenia 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 Alvarez 09/27/20 History of ankle surgery Dr. Fuchs - 06/2022 History of total cystectomy (05/2010) cystectomy w/ creation of ileal conduit (secondary to bladder caner) S/P Mohs surgery for basal cell carcinoma (04/2020) Family History Father Myocardial infarction Denies family history of Ovarian cancer Prostate cancer Breast cancer Colorectal cancer Social History Smoking Status: Never smoker Age Started Using Tobacco: 16; Age Quit Using Tobacco: 22; Second Hand Exposure: No; Do You Dip or Chew Tobacco: No; Hx Alcohol Use: Yes Alcohol type: beer Alcohol Intake Frequency: Monthly or Less Hx Substance Use: No Preferred Language: Haitian Communication Ability: Impaired Visual Impairment: No Limitations Hearing Ability: Hard of Hearing Biological Technical Officer Required: No Beliefs That Will Affect Care: Spiritual marital status: Current Living Situation: Spouse current occupational status: retired How many Children do You have: 3 Feels Safe at Home: Yes Childhood Exposure to Second-Hand Smoke: Yes Diet: regular Diet Comment: regular caffeine: No during the past year weight has: remained stable Dental Care, Regularly: Yes Physical Activity Frequency: Daily Seatbelt Use: always Sunscreen Use: Yes Assistive Devices: Hospital Bed and Walker Allergies Allergies Allergy/AdvReac Type Severity Reaction Status Date / Time No Known Allergies Allergy Verified 08/21/22 16:46 Home Meds Home Medications Medication Instructions Recorded Confirmed coenzyme Q10 100 mg capsule (Co 100 mg PO QAM #30 caps 10/19/18 08/21/22 Q-10) rvyvwell-dmz-ozzbki 5 mg-zeaxanth 1 cap PO QAM 10/19/18 08/21/22 1 mg-bilberry 7.5 mg-herbal capsule (Macular Health Formula) acetaminophen 500 mg capsule 500 mg PO Q6H PRN Pain 12/10/20 08/21/22 ascorbate calcium (vitamin C) 500 500 mg PO DAILY 12/10/20 08/21/22 mg tablet coffee extract 50 mg-phosphatidyl 1 tab PO HS 04/06/22 08/21/22 serine 50 mg chewable tablet (Neuriva Original) zinc acetate 50 mg (zinc) capsule 50 mg PO DAILY 04/06/22 08/21/22 cyanocobalamin (vitamin B-12) 2,500 mcg sublingual QAM 08/21/22 08/21/22 2,500 mcg sublingual tablet (Vitamin B-12) Previous Rx's Medication Instructions Recorded apixaban 2.5 mg tablet (Eliquis) 2.5 mg PO BID #180 tabs 02/13/22 atorvastatin 40 mg tablet (Lipitor) 40 mg PO QAM #90 tabs 03/19/22 linagliptin 5 mg tablet (Tradjenta) 5 mg PO DAILY #90 tabs 04/29/22 polyethylene glycol 3350 17 gram 17 g PO DAILY PRN constipation #30 04/29/22 oral powder packet (Miralax) ea famotidine 20 mg tablet 20 mg PO QAM #90 tabs 05/07/22 tramadol 50 mg tablet 50 mg PO Q4H PRN severe pain #10 06/13/22 tabs blood-glucose meter #1 ea 07/23/22 dapagliflozin propanediol 5 mg 5 mg PO DAILY #90 tabs 07/24/22 tablet (Farxiga) blood sugar diagnostic #100 ea 07/30/22 lancets 30 gauge (OneTouch Delica #100 ea 08/13/22 Plus Lancet) Results & Data (ED) Vital Signs Vital Signs - 24 hr 08/21/22 14:00 08/21/22 15:32 08/21/22 15:32 Temperature 36.6 C Temperature Source Temporal Artery Scan Pulse Rate 81 111 H Pulse Rate [Right Finger] 97 H Pulse Rate from SpO2 Sensor Pulse Rhythm [Right Finger] Irregular Pulse Strength [Right Finger] Normal Respiratory Rate 16 14 Respiratory Effort / Characteristics Non-Labored Non-Labored Spontaneous Respiratory Depth Normal Normal Respiratory Pattern Regular Blood Pressure 118/61 Blood Pressure [Left Arm] 134/92 Blood Pressure Mean 80 Blood Pressure Mean [Left Arm] 106 Blood Pressure Position [Left Arm] Lying Pulse Oximetry 94 96 Oxygen Delivery Method Room Air Room Air Sepsis Recent Fever Within 48 Hours No Sepsis New/Unexplained Change in Mental Status No Sepsis Action Taken by Nursing No Action Required 08/21/22 15:31 08/21/22 15:31 08/21/22 15:40 Temperature Temperature Source Pulse Rate 105 H 103 H Pulse Rate [Right Finger] Pulse Rate from SpO2 Sensor 99 H Pulse Rhythm [Right Finger] Pulse Strength [Right Finger] Respiratory Rate 14 22 Respiratory Effort / Characteristics Respiratory Depth Respiratory Pattern Blood Pressure 134/92 Blood Pressure [Left Arm] Blood Pressure Mean 101 Blood Pressure Mean [Left Arm] Blood Pressure Position [Left Arm] Pulse Oximetry 97 Oxygen Delivery Method Sepsis Recent Fever Within 48 Hours Sepsis New/Unexplained Change in Mental Status Sepsis Action Taken by Nursing 08/21/22 15:50 08/21/22 16:00 08/21/22 16:00 Temperature Temperature Source Pulse Rate 96 H 97 H Pulse Rate [Right Finger] Pulse Rate from SpO2 Sensor 100 H 98 H Pulse Rhythm [Right Finger] Pulse Strength [Right Finger] Respiratory Rate 25 H 21 Respiratory Effort / Characteristics Respiratory Depth Respiratory Pattern Blood Pressure 118/86 Blood Pressure [Left Arm] Blood Pressure Mean 100 Blood Pressure Mean [Left Arm] Blood Pressure Position [Left Arm] Pulse Oximetry 97 97 Oxygen Delivery Method Sepsis Recent Fever Within 48 Hours Sepsis New/Unexplained Change in Mental Status Sepsis Action Taken by Nursing 08/21/22 16:10 08/21/22 16:20 08/21/22 16:30 Temperature Temperature Source Pulse Rate 102 H 101 H Pulse Rate [Right Finger] Pulse Rate from SpO2 Sensor 118 H 100 H 101 H Pulse Rhythm [Right Finger] Pulse Strength [Right Finger] Respiratory Rate 23 22 18 Respiratory Effort / Characteristics Respiratory Depth Respiratory Pattern Blood Pressure Blood Pressure [Left Arm] Blood Pressure Mean Blood Pressure Mean [Left Arm] Blood Pressure Position [Left Arm] Pulse Oximetry 91 94 94 Oxygen Delivery Method Sepsis Recent Fever Within 48 Hours Sepsis New/Unexplained Change in Mental Status Sepsis Action Taken by Nursing 08/21/22 16:31 08/21/22 16:31 08/21/22 16:40 Temperature Temperature Source Pulse Rate 100 H Pulse Rate [Right Finger] Pulse Rate from SpO2 Sensor 99 H Pulse Rhythm [Right Finger] Pulse Strength [Right Finger] Respiratory Rate 24 25 H Respiratory Effort / Characteristics Respiratory Depth Respiratory Pattern Blood Pressure 142/71 H Blood Pressure [Left Arm] Blood Pressure Mean 122 Blood Pressure Mean [Left Arm] Blood Pressure Position [Left Arm] Pulse Oximetry 91 Oxygen Delivery Method Sepsis Recent Fever Within 48 Hours Sepsis New/Unexplained Change in Mental Status Sepsis Action Taken by Nursing 08/21/22 16:50 Temperature Temperature Source Pulse Rate 95 H Pulse Rate [Right Finger] Pulse Rate from SpO2 Sensor 108 H Pulse Rhythm [Right Finger] Pulse Strength [Right Finger] Respiratory Rate 31 H Respiratory Effort / Characteristics Respiratory Depth Respiratory Pattern Blood Pressure Blood Pressure [Left Arm] Blood Pressure Mean Blood Pressure Mean [Left Arm] Blood Pressure Position [Left Arm] Pulse Oximetry 95 Oxygen Delivery Method Sepsis Recent Fever Within 48 Hours Sepsis New/Unexplained Change in Mental Status Sepsis Action Taken by Nursing Laboratory Data 08/21/22 14:50 08/21/22 14:50 Lab Results 08/21/22 08/21/22 08/21/22 Range/Units 14:03 14:50 14:50 WBC 3.44 L (4.8-10.8) K/ul RBC 4.01 L (4.70-6.10) M/uL Hgb 13.3 L (14.0-18.0) g/dl Hct 40.5 L (42.0-52.0) % MCV 101.0 H (80.0-100.0) fL MCH 33.2 (25.0-34.0) pg MCHC 32.8 (32.0-36.0) g/dL RDW Std Deviation 55.7 H (36.4-46.3) fL RDW Coeff of Tasneem 14.9 H (11.5-14.5) % Plt Count 152 (130-400) K/uL MPV 11.5 (9.4-12.4) fL Immature Gran % (Auto) 0.6 % Neut % (Auto) 76.7 % Lymph % (Auto) 14.2 % [place] % (Auto) 6.4 % Eos % (Auto) 1.5 % Baso % (Auto) 0.6 % Neut # (Auto) 2.64 (1.40-6.50) K/uL Lymph # (Auto) 0.49 L (1.2-3.4) K/uL [place] # (Auto) 0.22 (0.11-0.59) K/uL Eos # (Auto) 0.05 (0-0.50) K/uL Baso # (Auto) 0.02 (0-0.2) K/uL Immature Gran # (Auto) 0.02 (0.01-0.20) K/uL Dohle Bodies 1+ Acanthocytes (Spur) 2+ PT 11.6 (9.0-12.0) Seconds INR 1.1 (0.9-1.1) APTT 28.6 (21.0-31.0) Seconds PTT Ratio 1.0 VBG pH (7.36-7.41) VBG pCO2 (38-50) mmHg VBG pO2 mmHg VBG HCO3 mmol/L VBG O2 Saturation % VBG Base Excess mEq/L Sodium (136-145) mmol/L Potassium (3.5-5.1) mmol/L Chloride (98-107) mmol/L Carbon Dioxide (21-32) mmol/L Anion Gap (3-11) BUN (6-23) mg/dl Creatinine (0.6-1.4) mg/dl Est Cr Clr Drug Dosing ml/min Est GFR ( Amer) ml/min Est GFR (Non-Af Amer) ml/min BUN/Creatinine Ratio (10-20) Glucose (70-99(Fasting)) mg/dl POC Glucose 560 H* (70-99) mg/dl Osmolality (280-300) mOsm/kg Calcium (8.6-10.3) mg/dl Phosphorus (2.5-4.9) mg/dl Magnesium (1.7-2.4) mg/dl Total Bilirubin (0.2-1.0) mg/dl AST (13-39) U/L ALT (7-52) U/L Alkaline Phosphatase (34-104) U/L Total Protein (6.0-8.3) gm/dl Albumin (3.4-5.0) gm/dl Globulin (2.5-4.0) gm/dl Albumin/Globulin Ratio (0.9-2) Urine Color Urine Appearance (Clear) Urine pH (4.5-7.5) Ur Specific [place] (1.000-1.030) Urine Protein (Negative) Urine Glucose (UA) (Negative) Urine Ketones (Negative) Urine Blood (Negative) Urine Nitrite (Negative) Urine Bilirubin (Negative) Urine Urobilinogen (Negative) Ur Leukocyte Esterase (Negative) Urine WBC (Auto) (0-5) /hpf Urine RBC (Auto) (0-4) /hpf U Hyaline Cast (Auto) (0-5) /lpf U Epithel Cells (Auto) (0-5) /lpf Urine Bacteria (Auto) (Negative) SARS-CoV-2, RNA, NAAT (NEGATIVE) 08/21/22 08/21/22 08/21/22 Range/Units 14:50 14:50 16:10 WBC (4.8-10.8) K/ul RBC (4.70-6.10) M/uL Hgb (14.0-18.0) g/dl Hct (42.0-52.0) % MCV (80.0-100.0) fL MCH (25.0-34.0) pg MCHC (32.0-36.0) g/dL RDW Std Deviation (36.4-46.3) fL RDW Coeff of Tasneem (11.5-14.5) % Plt Count (130-400) K/uL MPV (9.4-12.4) fL Immature Gran % (Auto) % Neut % (Auto) % Lymph % (Auto) % [place] % (Auto) % Eos % (Auto) % Baso % (Auto) % Neut # (Auto) (1.40-6.50) K/uL Lymph # (Auto) (1.2-3.4) K/uL [place] # (Auto) (0.11-0.59) K/uL Eos # (Auto) (0-0.50) K/uL Baso # (Auto) (0-0.2) K/uL Immature Gran # (Auto) (0.01-0.20) K/uL Dohle Bodies Acanthocytes (Spur) PT (9.0-12.0) Seconds INR (0.9-1.1) APTT (21.0-31.0) Seconds PTT Ratio VBG pH (7.36-7.41) VBG pCO2 (38-50) mmHg VBG pO2 mmHg VBG HCO3 mmol/L VBG O2 Saturation % VBG Base Excess mEq/L Sodium 151 H (136-145) mmol/L Potassium 3.6 (3.5-5.1) mmol/L Chloride 128 H (98-107) mmol/L Carbon Dioxide 15 L (21-32) mmol/L Anion Gap 8 (3-11) BUN 105 H (6-23) mg/dl Creatinine 1.86 H (0.6-1.4) mg/dl Est Cr Clr Drug Dosing 26.2 ml/min Est GFR ( Amer) 37.1 ml/min Est GFR (Non-Af Amer) 32.0 ml/min BUN/Creatinine Ratio 56.5 H (10-20) Glucose 544 H* (70-99(Fasting)) mg/dl POC Glucose (70-99) mg/dl Osmolality 380 H* (280-300) mOsm/kg Calcium 9.5 (8.6-10.3) mg/dl Phosphorus 2.7 (2.5-4.9) mg/dl Magnesium 2.1 (1.7-2.4) mg/dl Total Bilirubin 0.5 (0.2-1.0) mg/dl AST 6 L (13-39) U/L ALT 9 (7-52) U/L Alkaline Phosphatase 80 (34-104) U/L Total Protein 7.1 (6.0-8.3) gm/dl Albumin 4.0 (3.4-5.0) gm/dl Globulin 3.1 (2.5-4.0) gm/dl Albumin/Globulin Ratio 1.3 (0.9-2) Urine Color Urine Appearance (Clear) Urine pH (4.5-7.5) Ur Specific [place] (1.000-1.030) Urine Protein (Negative) Urine Glucose (UA) (Negative) Urine Ketones (Negative) Urine Blood (Negative) Urine Nitrite (Negative) Urine Bilirubin (Negative) Urine Urobilinogen (Negative) Ur Leukocyte Esterase (Negative) Urine WBC (Auto) (0-5) /hpf Urine RBC (Auto) (0-4) /hpf U Hyaline Cast (Auto) (0-5) /lpf U Epithel Cells (Auto) (0-5) /lpf Urine Bacteria (Auto) (Negative) SARS-CoV-2, RNA, NAAT NEGATIVE (NEGATIVE) 08/21/22 08/21/22 08/21/22 Range/Units 16:58 17:02 Unknown WBC (4.8-10.8) K/ul RBC (4.70-6.10) M/uL Hgb (14.0-18.0) g/dl Hct (42.0-52.0) % MCV (80.0-100.0) fL MCH (25.0-34.0) pg MCHC (32.0-36.0) g/dL RDW Std Deviation (36.4-46.3) fL RDW Coeff of Tasneem (11.5-14.5) % Plt Count (130-400) K/uL MPV (9.4-12.4) fL Immature Gran % (Auto) % Neut % (Auto) % Lymph % (Auto) % [place] % (Auto) % Eos % (Auto) % Baso % (Auto) % Neut # (Auto) (1.40-6.50) K/uL Lymph # (Auto) (1.2-3.4) K/uL [place] # (Auto) (0.11-0.59) K/uL Eos # (Auto) (0-0.50) K/uL Baso # (Auto) (0-0.2) K/uL Immature Gran # (Auto) (0.01-0.20) K/uL Dohle Bodies Acanthocytes (Spur) PT (9.0-12.0) Seconds INR (0.9-1.1) APTT (21.0-31.0) Seconds PTT Ratio VBG pH 7.27 L (7.36-7.41) VBG pCO2 37 L (38-50) mmHg VBG pO2 22 mmHg VBG HCO3 17 mmol/L VBG O2 Saturation < 60.0 % VBG Base Excess -9.2 mEq/L Sodium (136-145) mmol/L Potassium (3.5-5.1) mmol/L Chloride (98-107) mmol/L Carbon Dioxide (21-32) mmol/L Anion Gap (3-11) BUN (6-23) mg/dl Creatinine (0.6-1.4) mg/dl Est Cr Clr Drug Dosing ml/min Est GFR ( Amer) ml/min Est GFR (Non-Af Amer) ml/min BUN/Creatinine Ratio (10-20) Glucose (70-99(Fasting)) mg/dl POC Glucose 452 H* (70-99) mg/dl Osmolality (280-300) mOsm/kg Calcium (8.6-10.3) mg/dl Phosphorus (2.5-4.9) mg/dl Magnesium (1.7-2.4) mg/dl Total Bilirubin (0.2-1.0) mg/dl AST (13-39) U/L ALT (7-52) U/L Alkaline Phosphatase (34-104) U/L Total Protein (6.0-8.3) gm/dl Albumin (3.4-5.0) gm/dl Globulin (2.5-4.0) gm/dl Albumin/Globulin Ratio (0.9-2) Urine Color Yellow Urine Appearance Cloudy A (Clear) Urine pH 7.5 (4.5-7.5) Ur Specific [place] 1.018 (1.000-1.030) Urine Protein 1+ H (Negative) Urine Glucose (UA) 3+ H (Negative) Urine Ketones Negative (Negative) Urine Blood Trace H (Negative) Urine Nitrite Positive A (Negative) Urine Bilirubin Negative (Negative) Urine Urobilinogen Negative (Negative) Ur Leukocyte Esterase Trace H (Negative) Urine WBC (Auto) 10-30 H (0-5) /hpf Urine RBC (Auto) 0-4 (0-4) /hpf U Hyaline Cast (Auto) 1-5 (0-5) /lpf U Epithel Cells (Auto) 20-30 H (0-5) /lpf Urine Bacteria (Auto) 2+ H (Negative) SARS-CoV-2, RNA, NAAT (NEGATIVE) Administered Medications Discontinued Medications Sodium Chloride (Nss 1000ml) 1,000 mls @ 999 mls/hr IV .[id number] ONE Stop: 08/21/22 17:00 Last Infusion: 08/21/22 18:01 Dose: 0 mls/hr Documented By: MACHINING DEPARTMENT SUPERVISOR Admin: 08/21/22 16:13 Dose: 999 mls/hr Documented By: MACHINING DEPARTMENT SUPERVISOR Imaging Data Radiologist's Impression: Chest X-Ray 08/21/22 14:04 XR chest 1V not portable HISTORY: 86 years-old Male illness acute illness with hyperglycemia COMPARISON: 05/27/2022 TECHNIQUE: AP view chest. FINDINGS: Innumerable calcified granulomata of the lungs redemonstrated within an upper lung zone predominant distribution. Cardiomediastinal and hilar silhouettes are within normal limits. No pneumothorax, pleural effusion or airspace consolidation. Bones appear grossly intact. IMPRESSION: 1. No acute process. 2. Prior granulomatous disease. ACT 112: Negative or not required by law. The above report was generated using voice recognition software. It may contain grammatical, syntax or spelling errors. Electronically signed by: Parish Robles M.D. 08/21/2022 3:14 PM Chest X-Ray 06/15/23 16:00 XR chest 1V portable CLINICAL HISTORY: confusion TECHNIQUE: Single frontal radiograph of the chest was obtained. Comparison: Comparison is made to chest radiograph 08/21/2022 FINDINGS: No lines and tubes are seen. Calcified aortic knob is seen. Numerous calcified granulomata are seen in the bilateral lungs. No evidence of pleural effusion or pneumothorax. IMPRESSION: No acute abnormalities. Findings are compatible with prior granulomatous disease. ACT 112: Negative or not required by law. Electronically signed by: Ted Loaiza M.D. 08/21/2022 4:50 PM Discharge Plan Visit Data Chief Complaint: Hyperglycemia Stated Complaint: BLOOD SUGAR OVER 500 ED Provider: Kevin Cheung Discharge Problem: Type 2 diabetes mellitus with hyperosmolar hyperglycemic state (HHS), Acute hypernatremia, Complicated urinary tract infection, Atrial fibrillation, CKD (chronic kidney disease) Forms Stand Alone Forms: [facility] [employer] Prescriptions Prescriptions: No Action Eliquis 2.5 mg tablet 2.5 mg PO BID Qty: 180 1RF Rx Instructions: [id number] atorvastatin [Lipitor] 40 mg tablet 40 mg PO QAM Qty: 90 1RF polyethylene glycol 3350 [Miralax] 17 gram powder in packet 17 g PO DAILY PRN (Reason: constipation) Qty: 30 0RF Tradjenta 5 mg tablet 5 mg PO DAILY Qty: 90 3RF famotidine 20 mg tablet 20 mg PO QAM Qty: 90 1RF Farxiga 5 mg tablet 5 mg PO DAILY Qty: 90 1RF (DME) blood sugar diagnostic Strip See Rx Instructions .Route Qty: 100 2RF Rx Instructions: TEST ONCE DAILY; DX CODE- E11.29 (DME) lancets [OneTouch Delica Plus Lancet] 30 gauge misc See Rx Instructions .Route Qty: 100 2RF Rx Instructions: TEST ONCE DAILY; DX CODE- E11.29 acetaminophen 500 mg capsule 500 mg PO Q6H PRN (Reason: Pain) ascorbate calcium (vitamin C) 500 mg tablet 500 mg PO DAILY (DME) blood-glucose meter Kit See Rx Instructions .Route Qty: 1 0RF Rx Instructions: As directed [employer] Formula 5-1-7.5 mg capsule 1 cap PO QAM coenzyme Q10 [Co Q-10] 100 mg capsule 100 mg PO QAM Qty: 30 zinc acetate 50 mg (zinc) Capsule 50 mg PO DAILY Neuriva Original 50-50 mg Tablet,Chewable 1 tab PO HS tramadol 50 mg Tablet 50 mg PO Q4H PRN (Reason: severe pain) Qty: 10 0RF cyanocobalamin (vitamin B-12) [Vitamin B-12] 2,500 mcg Tablet, Sublingual 2,500 mcg SUBLINGUAL QAM Referrals Referrals: Carlito Caro CRNP [Primary Care Provider] -
--- NOTE | 2022-08-21 16:52 | XRay Report ---
XR chest 1V portable CLINICAL HISTORY: confusion TECHNIQUE: Single frontal radiograph of the chest was obtained. Comparison: Comparison is made to chest radiograph 08/21/2022 FINDINGS: No lines and tubes are seen. Calcified aortic knob is seen. Numerous calcified granulomata are seen i n the bilateral lungs. No evidence of pleural effusion or pneumothorax. IMPRESSION: No acute abnormalities. Findings are compatible with prior granulomatous disease. ACT 112: Negative or not required by law. Electronically signed by: Ted Loaiza M.D. 08/21/2022 4:50 PM
[2022-08-21 17:11] LABS: Base Excess VBG -9.2 mEq/L; HCO3 VBG 17 mmol/L; Oxygen Saturation VBG < 60.0 %; PCO2 VBG 37 mmHg (38-50); PO2 VBG 22 mmHg; pH VBG 7.27 (7.36-7.41)
[2022-08-21] MEDS ORDERED: HHS GOAL RANGE 250-350 mg/dl ONE (17:16)
[2022-08-21] MEDS ORDERED: GLUCOSE 10 TAB/TUBE PO PRN (17:16)
[2022-08-21] MEDS ORDERED: GLUCOSE 40% GEL 15 GM TUBE PO PRN (17:16)
[2022-08-21] MEDS ORDERED: GLUCAGON FOR INJ 1 MG VIAL SQ PRN (17:16)
[2022-08-21] MEDS ORDERED: DEXTROSE 50% 50 ML SYRINGE IV PRN (17:16)
[2022-08-21] MEDS ORDERED: STAT INSULIN DRIP STA (17:16)
[2022-08-21] MEDS ORDERED: CARBOHYDRATES FOR HYPOGLYCEMIA PO PRN (17:16)
--- NOTE | 2022-08-21 17:21 | History & Physical Report ---
Date of Service August 21, 2022 Assessment & Plan (1) Hyperosmolar hyperglycemic state (HHS): Plan: -Admit to the PCU on tele -Currently stable -Patient noted to have significant hyperglycemia of 544, no ketones in his urine, VBG with pH of 7.27 -AG WNL, bicarb at 15 -Likely caused by acute UTI and only being on oral antihyperglycemics -Lactate ordered on admission is in process -Potassium at 3.6, Will give 40 meq PO KCL prior to starting Insulin drip -Start insulin drip with HHS protocol -ED ordered Normosol at 250 mL/hr, will be started soon -Confirmed with nursing staff and communication placed to let rn clinical documentation provider know when his BSG falls below 300 so Normosol can be changed to D5w -Hold oral antihyperglycemics -Will repeat BMP, Mag, and VBG in 3 hours to ensure he is correcting adequately -Monitor intake and output q6h -BL SCD's and home Eliquis for DVT PPX -AM CBC, BMP, mag, PT/INR -HH and DMII diet, minced/moist with honey thick liquids -PT/OT consults ordered as patient may need home health (2) Acute hypernatremia: Plan: -Corrected sodium of 158 in the ED -Due to severe dehydration with HHS and high Urostomy output -Continue IV hydration -Follow repeat labs tonight and am labs tomorrow (3) UTI (urinary tract infection): Plan: -Patient noted to have UA indicative of acute UTI today -Has previously grown Enterococcus Faecalis, Pseudomonas, and Klebsella -After review of previous urine cultures/sensitivities and discussions with Pharmacy, will start the patient on Daptomycin and Meropenem -Will hold oral antihyperglycemics and statin while on Dapto -Follow urine and blood cultures -Urostomy management ordered (4) Abnormal ECG: Plan: -ECG in the ED noted to have ST depressions in the inferolateral leads -This was when the patient was in afib RVR -The patient has been without chest pain and hemodynamically stable -Likely due to demand from acute illness and severe dehydration on arrival -Will continue to monitor on tele, will order repeat ECG for the am (5) Periostitis of ankle: Plan: -S/P debridement last admission by Orthopedics -Coupled outpatient course of Cefepime in rehab -Appears to be healing well, no acute signs of infection -Wound care nurse consult placed (6) Silent aspiration: Plan: -Long history -Stable on RA today with stable chronic findings on CXR today -Will continue with minced/moist diet with honey thick liquids (7) Paroxysmal atrial fibrillation: Plan: -Initially noted to be in afib RVR with HR in the low 100's on arrival -Currently stable -Continue IV hydration -Continue Eliquis -Monitor on tele (8) Hypertension: Plan: -Currently stable -Not on antihypertensives, continue to monitor (9) Dyslipidemia: Plan: -Hold statin while on Daptomycin (10) MGUS (monoclonal gammopathy of unknown significance): Plan: -Has been monitoring outpatient -WBC currently at 3.44, likely due to acute infection -Monitor daily CBC with diff for now Plan The patient was discussed with Dr. Graves at the time of the admission History of Present Illness Chief Complaint: Generalized weakness, hyperglycemia Primary Care Provider: CALLUM Ragsdale Raphael is an 86 year old male with a PMH significant for afib on eliquis, bladder cancer S/P bladder cancer with ileal conduit & recurrent UTI's, HTN, stage III CKD, dyslipidemia, adenocarcinoma of the colon S/P open subtotal colectomy in 2020 (follows with Heme/onc and currently on surveillance), DM II, anemia and MGUS who presented to the [facility] ED on 08/21/22 with complaints of Generalized weakness and hyperglycemia. In the ED the patient was noted to be tachycardic with HR in the low 100's, tachypneic with respirations in the low 30's but otherwise stable. Labs were significant for a leukopenia of 3.44 (down from 7.37 as of 07/23), VBG pH of 7.27, pCO2 37, Cr of 1.86 (baseline appears to be 1.7-1.8), bicarb of 15 with AG of 8, chloride of 128, glucose of 544, corrected sodium of 158, serum osmolality of 380, covid 19 negative, and UA suggestive of acute UTI. Chest xray was read as "No acute abnormalities. Findings are compatible with prior granulomatous disease.". Prior to admission the patient was started on an insulin drip with HHS protocol and received 1L NSS bolus. At the time of the exam the patient was lying in bed in no acute distress with his and daughter sitting bedside, history was mainly obtained from the patient's family due to his current mental status. They state that he was discharged to a SNF after his last admission when he was diagnosed with left lateral ankle osteitis. He completed his outpatient course of Cefepime at rehab and was discharged back home on 07/14. He had been doing well up until last Thursday when he became generally weak. He has been less active over this time but has been eating and drinking fairly well. He has been having increased Urostomy output and has been having elevated blood glucose. The patient recently saw Dr. Lin on 08/18 who mentioned that they might have to increase his dose of Farxiga in the near future. The family does not believe the patient has been febrile recently, he has not had a recent fall. The patient himself denies chest pain, SOB, and pain, nausea, vomiting, diarrhea, LE swelling, and recent trauma. He has been taking all medications as prescribed. I discussed code status with his family, they confirmed that he is a DNR/DNI. Please refer to Dr. Graves's attestation for any changes to the treatment plan Allergies Allergy/AdvReac Type Severity Reaction Status Date / Time No Known Allergies Allergy Verified 08/21/22 16:46 Home Medications Medication Instructions Recorded Confirmed Type coenzyme Q10 100 mg capsule (Co 100 mg PO QAM #30 caps 10/19/18 08/21/22 History Q-10) hhiovenz-dyk-qwatge 5 mg-zeaxanth 1 cap PO QAM 10/19/18 08/21/22 History 1 mg-bilberry 7.5 mg-herbal capsule (Macular Health Formula) acetaminophen 500 mg capsule 500 mg PO Q6H PRN Pain 12/10/20 08/21/22 History ascorbate calcium (vitamin C) 500 500 mg PO DAILY 12/10/20 08/21/22 History mg tablet apixaban 2.5 mg tablet (Eliquis) 2.5 mg PO BID #180 tabs 02/13/22 08/21/22 Rx atorvastatin 40 mg tablet (Lipitor) 40 mg PO QAM #90 tabs 03/19/22 08/21/22 Rx coffee extract 50 mg-phosphatidyl 1 tab PO HS 04/06/22 08/21/22 History serine 50 mg chewable tablet (Neuriva Original) zinc acetate 50 mg (zinc) capsule 50 mg PO DAILY 04/06/22 08/21/22 History linagliptin 5 mg tablet (Tradjenta) 5 mg PO DAILY #90 tabs 04/29/22 08/21/22 Rx polyethylene glycol 3350 17 gram 17 g PO DAILY PRN constipation #30 04/29/22 08/21/22 Rx oral powder packet (Miralax) ea famotidine 20 mg tablet 20 mg PO QAM #90 tabs 05/07/22 08/21/22 Rx tramadol 50 mg tablet 50 mg PO Q4H PRN severe pain #10 06/13/22 08/21/22 Rx tabs blood-glucose meter #1 ea 07/23/22 07/23/22 Rx dapagliflozin propanediol 5 mg 5 mg PO DAILY #90 tabs 07/24/22 08/21/22 Rx tablet (Farxiga) blood sugar diagnostic #100 ea 07/30/22 Rx lancets 30 gauge (OneTouch Delica #100 ea 08/13/22 Rx Plus Lancet) cyanocobalamin (vitamin B-12) 2,500 mcg sublingual QAM 08/21/22 08/21/22 History 2,500 mcg sublingual tablet (Vitamin B-12) Past Med/Surg History Medical History (Updated 08/21/22 @ 18:40 by Olman Santos PA-C) Allergic rhinitis AMD (age related macular degeneration) Anemia Chronic osteoarthritis Diabetes mellitus with kidney complication Dyslipidemia Hypertension MGUS (monoclonal gammopathy of unknown significance) Osteopenia Peripheral neuropathy Premature ventricular contractions Proteinuria Stage 3b chronic kidney disease Stage III chronic kidney disease Thrombocytopenia 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 Alvarez 09/27/20 History of ankle surgery Dr. Fuchs - 06/2022 History of total cystectomy (05/2010) cystectomy w/ creation of ileal conduit (secondary to bladder caner) S/P Mohs surgery for basal cell carcinoma (04/2020) Family History Father Myocardial infarction Denies family history of Ovarian cancer Prostate cancer Breast cancer Colorectal cancer Social History Smoking Status: Never smoker Age Started Using Tobacco: 16; Age Quit Using Tobacco: 22; Second Hand Exposure: No; Do You Dip or Chew Tobacco: No; Hx Alcohol Use: No Hx Substance Use: No Preferred Language: Haitian Communication Ability: Effective Visual Impairment: No Limitations Hearing Ability: Hard of Hearing Gang Tailer Required: No Beliefs That Will Affect Care: None marital status: Current Living Situation: Spouse Current Living Situation Comment: ALONE WITH current occupational status: retired How many Children do You have: 3 Other Information That Helps Us Care for You: No Feels Safe at Home: Yes Safety Concerns: Feels Safe At This Time Childhood Exposure to Second-Hand Smoke: Yes Diet: regular Diet Comment: regular caffeine: No during the past year weight has: remained stable Dental Care, Regularly: Yes Physical Activity Frequency: Daily Seatbelt Use: always Sunscreen Use: Yes Assistive Devices: Walker Physical Exam Physical Exam: Physical Exam: General: In no acute distress, stated age, ill appearing but non-toxic HEENT: Normocephalic, atraumatic, no scleral icterus, pupils around round, symmetrical, and reactive to light, Dry mucus membranes, trachea midline, no thyromegaly Chest/Pulm: No respiratory distress, symmetrical chest expansion, clear breath sounds throughout Cardiac: irregular rate and rhythm, no murmurs noted Abdomen: Urostomy bag is in place in the RLQ, currently draining clear, yellow urine,Negative for ascites and bruising, normoactive bowel sounds, soft, non-tender to palpation throughout Musculoskeletal: Patient able to move all extremities voluntarily, left lateral ankle wound appears to be healing well without acute signs of infection Extremities: Radial, dorsalis pedis, and posterior tibial pulses are intact and symmetrical, no edema noted in the BL LE's Skin: As described above Neuro: Alert and oriented to person, place, and year, no focal defects, CN II-XII tested and intact, no tremors noted Psych: No acute distress, calm and cooperative during the exam Results & Data Results & Data Vital Signs (Past 12 Hours) Vital Signs Temp Pulse Pulse Resp BP BP Pulse Ox 08/21/22 16:50 95 H 31 H 95 08/21/22 16:40 100 H 25 H 91 08/21/22 16:31 142/71 H 08/21/22 16:31 24 08/21/22 16:30 18 94 08/21/22 16:20 101 H 22 94 08/21/22 16:10 102 H 23 91 08/21/22 16:00 97 H 21 97 08/21/22 16:00 118/86 08/21/22 15:50 96 H 25 H 97 08/21/22 15:40 103 H 22 97 08/21/22 15:31 105 H 14 08/21/22 15:31 134/92 08/21/22 15:32 111 H 08/21/22 15:32 97 H 14 134/92 96 08/21/22 14:00 36.6 C 81 16 118/61 94 O2 Del Method 08/21/22 16:50 08/21/22 16:40 08/21/22 16:31 08/21/22 16:31 08/21/22 16:30 08/21/22 16:20 08/21/22 16:10 08/21/22 16:00 08/21/22 16:00 08/21/22 15:50 08/21/22 15:40 08/21/22 15:31 08/21/22 15:31 08/21/22 15:32 08/21/22 15:32 Room Air 08/21/22 14:00 Room Air Laboratory Results Abnormal lab results 08/21/22 08/21/22 08/21/22 Range/Units 14:03 14:50 14:50 WBC 3.44 L (4.8-10.8) K/ul RBC 4.01 L (4.70-6.10) M/uL Hgb 13.3 L (14.0-18.0) g/dl Hct 40.5 L (42.0-52.0) % MCV 101.0 H (80.0-100.0) fL RDW Std Deviation 55.7 H (36.4-46.3) fL RDW Coeff of Tasneem 14.9 H (11.5-14.5) % Lymph # (Auto) 0.49 L (1.2-3.4) K/uL VBG pH (7.36-7.41) VBG pCO2 (38-50) mmHg Sodium 151 H (136-145) mmol/L Chloride 128 H (98-107) mmol/L Carbon Dioxide 15 L (21-32) mmol/L BUN 105 H (6-23) mg/dl Creatinine 1.86 H (0.6-1.4) mg/dl BUN/Creatinine Ratio 56.5 H (10-20) Glucose 544 H* (70-99(Fasting)) mg/dl POC Glucose 560 H* (70-99) mg/dl Osmolality (280-300) mOsm/kg AST 6 L (13-39) U/L Urine Appearance (Clear) Urine Protein (Negative) Urine Glucose (UA) (Negative) Urine Blood (Negative) Urine Nitrite (Negative) Ur Leukocyte Esterase (Negative) Urine WBC (Auto) (0-5) /hpf U Epithel Cells (Auto) (0-5) /lpf Urine Bacteria (Auto) (Negative) 08/21/22 08/21/22 08/21/22 Range/Units 14:50 16:58 17:02 WBC (4.8-10.8) K/ul RBC (4.70-6.10) M/uL Hgb (14.0-18.0) g/dl Hct (42.0-52.0) % MCV (80.0-100.0) fL RDW Std Deviation (36.4-46.3) fL RDW Coeff of Tasneem (11.5-14.5) % Lymph # (Auto) (1.2-3.4) K/uL VBG pH 7.27 L (7.36-7.41) VBG pCO2 37 L (38-50) mmHg Sodium (136-145) mmol/L Chloride (98-107) mmol/L Carbon Dioxide (21-32) mmol/L BUN (6-23) mg/dl Creatinine (0.6-1.4) mg/dl BUN/Creatinine Ratio (10-20) Glucose (70-99(Fasting)) mg/dl POC Glucose 452 H* (70-99) mg/dl Osmolality 380 H* (280-300) mOsm/kg AST (13-39) U/L Urine Appearance (Clear) Urine Protein (Negative) Urine Glucose (UA) (Negative) Urine Blood (Negative) Urine Nitrite (Negative) Ur Leukocyte Esterase (Negative) Urine WBC (Auto) (0-5) /hpf U Epithel Cells (Auto) (0-5) /lpf Urine Bacteria (Auto) (Negative) 08/21/22 Range/Units Unknown WBC (4.8-10.8) K/ul RBC (4.70-6.10) M/uL Hgb (14.0-18.0) g/dl Hct (42.0-52.0) % MCV (80.0-100.0) fL RDW Std Deviation (36.4-46.3) fL RDW Coeff of Tasneem (11.5-14.5) % Lymph # (Auto) (1.2-3.4) K/uL VBG pH (7.36-7.41) VBG pCO2 (38-50) mmHg Sodium (136-145) mmol/L Chloride (98-107) mmol/L Carbon Dioxide (21-32) mmol/L BUN (6-23) mg/dl Creatinine (0.6-1.4) mg/dl BUN/Creatinine Ratio (10-20) Glucose (70-99(Fasting)) mg/dl POC Glucose (70-99) mg/dl Osmolality (280-300) mOsm/kg AST (13-39) U/L Urine Appearance Cloudy A (Clear) Urine Protein 1+ H (Negative) Urine Glucose (UA) 3+ H (Negative) Urine Blood Trace H (Negative) Urine Nitrite Positive A (Negative) Ur Leukocyte Esterase Trace H (Negative) Urine WBC (Auto) 10-30 H (0-5) /hpf U Epithel Cells (Auto) 20-30 H (0-5) /lpf Urine Bacteria (Auto) 2+ H (Negative) Diagnostic Findings Chest X-Ray 08/21/22 14:04 XR chest 1V not portable HISTORY: 86 years-old Male illness acute illness with hyperglycemia COMPARISON: 05/27/2022 TECHNIQUE: AP view chest. FINDINGS: Innumerable calcified granulomata of the lungs redemonstrated within an upper lung zone predominant distribution. Cardiomediastinal and hilar silhouettes are within normal limits. No pneumothorax, pleural effusion or airspace consolidation. Bones appear grossly intact. IMPRESSION: 1. No acute process. 2. Prior granulomatous disease. ACT 112: Negative or not required by law. The above report was generated using voice recognition software. It may contain grammatical, syntax or spelling errors. Electronically signed by: Parish Robles M.D. 08/21/2022 3:14 PM Chest X-Ray 08/21/22 16:00 XR chest 1V portable CLINICAL HISTORY: confusion TECHNIQUE: Single frontal radiograph of the chest was obtained. Comparison: Comparison is made to chest radiograph 08/21/2022 FINDINGS: No lines and tubes are seen. Calcified aortic knob is seen. Numerous calcified granulomata are seen in the bilateral lungs. No evidence of pleural effusion or pneumothorax. IMPRESSION: No acute abnormalities. Findings are compatible with prior granulomatous disease. ACT 112: Negative or not required by law. Electronically signed by: Ted Loaiza M.D. 08/21/2022 4:50 PM ECG Additional Comments: Atrial fibrillation with rapid ventricular response with premature ventricular or aberrantly conducted complexes ST & T wave abnormality, consider inferolateral ischemia Abnormal ECG When compared with ECG of 27-MAY-2022 13:03, Criteria for Anterolateral infarct are no longer Present T wave inversion now e vident in Lateral leads Code Status & VTE Plan Code Status DNR/DNI VTE Prophylaxis Plan VTE Prophylaxis will be ordered: Yes Supervising Physician Co-Signing Physician Notes I personally saw and examined the patient. I verified all macias points and agree with Olman Santos PA-C with the following exceptions and/or additions: 86 year old male with decreased oral intake, fatigue and altered mental state. Repeated episodes of not being able to keep up with fluids due to needing thickener. Family requests the lightest thickener possible. O/E Alert & orientated to person, place and year, dry mucus membranes, HS irregularly irregular, no murmurs, Chest CTAB, mild abdominal tenderness without guarding or rebound A/P HHS/Hypernatremia - once glucose within range will switch to D5W with KCl. 2.1L deficit based on corrected sodium. Will continue on D5W and insulin IV drip until Na within normal range. UTI - unclear if driving illness but no other acute reason for HSS. Mild abdominal tenderness non specific symptom. Will treat with broad spectrum antibiotics pending culture and sensitivities given prior resistant organisms Abnormal EKG - no chest pain to suggest ACS. Will repeat in AM to make sure ST depressions improve as electrolyte abnormalities improve. PG Care Time/CCT Total # of Minutes Spent Total Time Spent with Patient: Total time spent is greater than 50% in coordination of care (as documented) at patient's floor/unit and/or counseling patient: Coding [place] [address] INT INP/OBS CARE 3/75MIN Patient Type Established Medical Decision Making High Complexity Diagnoses Hyperosmolar hyperglycemic state (HHS) E11.00 Acute hypernatremia E87.0 UTI (urinary tract infection) N39.0 Abnormal ECG R94.31 Periostitis of ankle M86.9 Silent aspiration T17.900A Paroxysmal atrial fibrillation I48.0 Hypertension I10 Dyslipidemia E78.5 MGUS (monoclonal gammopathy of unknown significance) D47.2
[2022-08-21 17:26] LABS: Appearance Urine Cloudy (Clear); Bacteria Urine Automated 2+ (Negative); Bilirubin Urine Negative (Negative); Blood Urine Trace (Negative); Color Urine Yellow; Epithelial Cell Urine Auto 20-30 /lpf (0-5); Glucose Urine UA 3+ (Negative); Ketones Urine Negative (Negative); Leukocyte Esterase Urine Trace (Negative); Nitrite Urine Positive (Negative); RBC Urine Automated 0-4 /hpf (0-4); Specific Gravity Urine 1.018 (1.000-1.030); Urobilinogen Urine Negative (Negative); pH Urine 7.5 (4.5-7.5)
[2022-08-21 17:27] LABS: Protein Urine 1+ (Negative)
[2022-08-21] MEDS ORDERED: PLASMA-LYTE A 1,000 ML IV SCH (17:30)
[2022-08-21] MEDS ORDERED: INSULIN REGULAR 250 UNITS in SODIUM CHLORIDE 0.9% 247.5 ML IV SCH (17:30)
[2022-08-21] MEDS ORDERED: POTASSIUM CHLORIDE CRTAB 20 MEQ TABCR PO STA (17:36)
[2022-08-21 17:47] LABS: Magnesium 2.1 mg/dl (1.7-2.4); Phosphorus 2.7 mg/dl (2.5-4.9)
--- NOTE | 2022-08-21 19:54 | Electrocardiogram Report ---
Test Reason : Blood Pressure : / mmHG Vent. Rate : 106 BPM Atrial Rate : 000 BPM P-R Int : 000 ms QRS Dur : 096 ms QT Int : 320 ms P-R-T Axes : 000 066 255 degrees QTc Int : 425 ms Atrial fibrillation with rapid ventricular response with premature ventricular or aberrantly conducte d complexes Abnormal ECG When compared with ECG of 27-MAY-2022 13:03, Criteria for Anterolateral infarct are no longer Present T wave inversion now evident in Lateral leads Confirmed by Torey Hughes ([id number]) on 08/21/2022 7:54:10 PM Referred By: Confirmed By:Lance Hughes
[2022-08-21] MEDS: INSULIN ASPART PER UNIT CHARGE SC SCH (21:06)
[2022-08-21] MEDS: MEROPENEM 500 MG in SYRINGE 0 ML IV SCH (21:09)
[2022-08-21] MEDS: DAPTOmycin 275 MG in SYRINGE 0 ML IV SCH (21:09)
[2022-08-21] MEDS ORDERED: D5W AND 1/2NSS 1,000 ML IV SCH (21:15)
[2022-08-21] MEDS: APIXABAN 2.5 MG TAB PO SCH (21:40)
[2022-08-21] MEDS ORDERED: DEXTROSE 5% 1,000 ML IV SCH (21:45)
[2022-08-21] MEDS ORDERED: D5W AND 1/2NSS + 20MEQ KCL 20 MEQ/1,000 ML BAG IV SCH (21:45)
[2022-08-21 21:53] LABS: Base Excess VBG -9.3 mEq/L; HCO3 VBG 18 mmol/L; Oxygen Saturation VBG < 60.0 %; PCO2 VBG 41 mmHg (38-50); PO2 VBG 24 mmHg; pH VBG 7.24 (7.36-7.41)
[2022-08-21 22:22] LABS: BUN Creatinine Ratio 52.8 (10-20); Calcium 9.1 mg/dl (8.6-10.3); Creatinine Clr Calc Pharmacy 26.1 ml/min; Est GFR (African American) 39.2 ml/min; Est GFR (Non-African American) 33.8 ml/min; Potassium 3.3 mmol/L (3.5-5.1)
[2022-08-21] MEDS: POTASSIUM CHLORIDE 20 MEQ in DEXTROSE 5% 1,000 ML IV SCH (22:31)
[2022-08-22] MEDS ORDERED: POTASSIUM CHLORIDE CRTAB 20 MEQ TABCR PO STA (02:02)
[2022-08-22] MEDS: POTASSIUM CHLORIDE 20 MEQ in DEXTROSE 5% 1,000 ML IV SCH ×3 (05:04→21:27)
[2022-08-22] MEDS: MEROPENEM 500 MG in SYRINGE 0 ML IV SCH ×3 (05:04→20:11)
[2022-08-22 07:16] LABS: Basophils # (auto) 0.03 K/uL (0-0.2); Basophils % (auto) 0.4 %; Dohle Bodies 2+; Echinocytes 1+; Eosinophils # (auto) 0.05 K/uL (0-0.50); Eosinophils % (auto) 0.7 %; Hematocrit (blood only) 37.7 % (42.0-52.0); Hemoglobin 12.4 g/dl (14.0-18.0); Immature Granulocytes # (auto) 0.03 K/uL (0.01-0.20); Immature Granulocytes % (auto) 0.4 %; Lymphocytes # (auto) 0.53 K/uL (1.2-3.4); Lymphocytes % (auto) 7.4 %; Mean Corpuscular Hemoglobin 33.2 pg (25.0-34.0); Mean Corpuscular Hgb Conc 32.9 g/dL (32.0-36.0); Mean Corpuscular Volume 100.8 fL (80.0-100.0); Mean Platelet Volume 11.5 fL (9.4-12.4); Monocytes # (auto) 0.35 K/uL (0.11-0.59); Monocytes % (auto) 4.9 %; Neutrophils # (auto) 6.17 K/uL (1.40-6.50); Neutrophils % (auto) 86.2 %; Platelet Count 128 K/uL (130-400); RDW Coefficient of Variation 15.4 % (11.5-14.5); RDW Standard Deviation 56.6 fL (36.4-46.3); Red Blood Count 3.74 M/uL (4.70-6.10); White Blood Count 7.16 K/ul (4.8-10.8)
[2022-08-22 07:22] LABS: Calcium 9.3 mg/dl (8.6-10.3); INR 1.1 (0.9-1.1); Potassium 3.8 mmol/L (3.5-5.1); Prothrombin Time 12.3 Seconds (9.0-12.0)
[2022-08-22 07:28] LABS: BUN Creatinine Ratio 48.9 (10-20); Est GFR (African American) 37.1 ml/min
[2022-08-22] MEDS: APIXABAN 2.5 MG TAB PO SCH ×2 (07:57→20:17)
[2022-08-22] MEDS: CYANOCOBALAMIN (B-12) 500 MCG TABLET PO SCH (07:57)
[2022-08-22] MEDS: FAMOTIDINE 20 MG TAB PO SCH (07:58)
[2022-08-22] MEDS: INSULIN ASPART PER UNIT CHARGE SC SCH ×4 (08:23→20:24)
[2022-08-22] MEDS ORDERED: PHARMACY GLYCEMIC MGMT CONSULT PRN (08:47)
[2022-08-22] MEDS ORDERED: CYANOCOBALAMIN (B-12) 2,500 MCG TABLET SL SCH (09:00)
[2022-08-22] MEDS: LANTUS PER UNIT CHARGE SC SCH (09:59)
--- NOTE | 2022-08-22 10:57 | Electrocardiogram Report ---
Test Reason : Blood Pressure : / mmHG Vent. Rate : 093 BPM Atrial Rate : 102 BPM P-R Int : 000 ms QRS Dur : 102 ms QT Int : 362 ms P-R-T Axes : 060 059 017 degrees QTc Int : 450 ms Atrial fibrillation Low voltage QRS Nonspecific T wave abnormality Abnormal ECG When compared with ECG of 21-AUG-2022 14:28, ST no longer depressed in Anterolateral leads Nonspecific T wave abnormality has replaced inverted T waves in Lateral leads Confirmed by Torey Hughes ([id number] on 08/22/2022 10:57:21 AM Referred By: REFERRED SELF Confirmed By:Lance Hughes
--- NOTE | 2022-08-22 12:05 | Nephrology Consultation ---
Date of Consultation August 22, 2022 Assessment & Plan (1) Acute hypernatremia: * Hypernatremia due to dehydration in the setting of UTI, inability to access free water * Calculated free water deficit is 4 L * Agree w/ current management plan: D5W at 150 cc/hr * Monitor PRP (2) Stage 3b chronic kidney disease: * CKD stage G3b/A3 (moderate impairment), baseline Cr 1.7-1.8 w/ EGFR 32 cc/min. Outpatient evaluation has revealed 1.5g/day urinary protein. UIEP and [place]/Lambda free light chain ratio have been positive for monoclonal protein. Urine sediment has been difficult to interpret due to the presence of a urostomy and frequent UTI. 03/[address] revealed bilateral cortical thinning without hydronephrosis (3) Cystitis: * Currently on Meropenem, Daptomycin * Await blood and urine culture results * Consider stopping SGLT2i due to recurrent UTI and dehydration w/ TRAVIS History of Present Illness Reason for Consultation: Hypernatremia Attending Physician: Raphael Douglas History of Present Illness Mr. Espinosa is an 86 year old white male who is seen at the request of the [facility] Hospitalist Service for evaluation of hypernatremia. The patient suffers from dementia and is unable to provide any medical details. Information for the HPI is obtained from the EMR and is summarized as follows: Mr. Espinosa has CKD stage G3b/A3 (moderate impairment), baseline Cr 1.7-1.8 w/ EGFR 32 cc/min. His primary [employer]umbing [employer] Heating [employer]or is Dr. Lin. Outpatient evaluation has revealed 1.5g/da y urinary protein. UIEP and [place]/Lambda free light chain ratio have been positive for monoclonal protein. Urine sediment has been difficult to interpret due to the presence of a urostomy and frequent UTI. 03/[address] revealed bilateral cortical thinning without hydronephrosis. Mr. Espinosa's medical history is also significant for atrial fibrillation (Eliquis), AODM, HTN, MGUS, dementia and urothelial carcinoma of the bladder s/p R hemicolectomy/cystectomy/prostatectomy with RLQ ileal conduit and urostomy. He has a h/o recurrent UTI and dehydration resulting in TRAVIS/CKD. Mr. Espinosa was brought to the [facility] last evening for evaluation of generalized weakness, hyperglycemia. Laboratory studies revealed Na 158, Cr 1.86, glucose 544, urine ketones negative, urine microscopy suggestive of UTI. He tested COVID negative. Mr. Espinosa has been admitted to the hospitalist service and started on an insulin gtt, D5W w/ 20 mEq KCL at 150 cc/hr, Meropenem and Daptomycin. Blood and urine cultures are currently pending. Allergies Allergy/AdvReac Type Severity Reaction Status Date / Time No Known Allergies Allergy Verified 08/21/22 16:46 Home Medications Medication Instructions Recorded Confirmed Type coenzyme Q10 100 mg capsule (Co 100 mg PO QAM #30 caps 10/19/18 08/21/22 History Q-10) bnnqddwk-qah-vckuwh 5 mg-zeaxanth 1 cap PO QAM 10/19/18 08/21/22 History 1 mg-bilberry 7.5 mg-herbal capsule ([employer] Formula) acetaminophen 500 mg capsule 500 mg PO Q6H PRN Pain 12/10/20 08/21/22 History ascorbate calcium (vitamin C) 500 500 mg PO DAILY 12/10/20 08/21/22 History mg tablet apixaban 2.5 mg tablet (Eliquis) 2.5 mg PO BID #180 tabs 02/13/22 08/21/22 Rx atorvastatin 40 mg tablet (Lipitor) 40 mg PO QAM #90 tabs 03/19/22 08/21/22 Rx coffee extract 50 mg-phosphatidyl 1 tab PO HS 04/06/22 08/21/22 History serine 50 mg chewable tablet (Neuriva Original) zinc acetate 50 mg (zinc) capsule 50 mg PO DAILY 04/06/22 08/21/22 History linagliptin 5 mg tablet (Tradjenta) 5 mg PO DAILY #90 tabs 04/29/22 08/21/22 Rx polyethylene glycol 3350 17 gram 17 g PO DAILY PRN constipation #30 04/29/22 08/21/22 Rx oral powder packet (Miralax) ea famotidine 20 mg tablet 20 mg PO QAM #90 tabs 05/07/22 08/21/22 Rx tramadol 50 mg tablet 50 mg PO Q4H PRN severe pain #10 06/13/22 08/21/22 Rx tabs blood-glucose meter #1 ea 07/23/22 07/23/22 Rx dapagliflozin propanediol 5 mg 5 mg PO DAILY #90 tabs 07/24/22 08/21/22 Rx tablet (Farxiga) blood sugar diagnostic #100 ea 07/30/22 Rx lancets 30 gauge (OneTouch Delica #100 ea 08/13/22 Rx Plus Lancet) cyanocobalamin (vitamin B-12) 2,500 mcg sublingual QAM 08/21/22 08/21/22 History 2,500 mcg sublingual tablet (Vitamin B-12) Patient History Medical History Allergic rhinitis AMD (age related macular degeneration) Anemia Chronic osteoarthritis Diabetes mellitus with kidney complication Dyslipidemia Hypertension MGUS (monoclonal gammopathy of unknown significance) Osteopenia Peripheral neuropathy Premature ventricular contractions Proteinuria Stage 3b chronic kidney disease Stage III chronic kidney disease Thrombocytopenia 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 Alvarez 09/27/20 History of ankle surgery [address] Fuchs - 06/2022 History of total cystectomy (05/2010) cystectomy w/ creation of ileal conduit (secondary to bladder caner) S/P Mohs surgery for basal cell carcinoma (04/2020) Family History Father Myocardial infarction Denies family history of Ovarian cancer Prostate cancer Breast cancer Colorectal cancer Social History Smoking Status: Never smoker Age Started Using Tobacco: 16; Age Quit Using Tobacco: 22; Second Hand Exposure: No; Do You Dip or Chew Tobacco: No; Hx Alcohol Use: No Hx Substance Use: No Preferred Language: Tamaz[place] Communication Ability: Effective Visual Impairment: No Limitations Hearing Ability: Hard of Hearing Inspector Balance Truing Required: No Beliefs That Will Affect Care: None marital status: Current Living Situation: Spouse Current Living Situation Comment: ALONE WITH current occupational status: retired How many Children do You have: 3 Other Information That Helps Us Care for You: No Feels Safe at Home: Yes Safety Concerns: Feels Safe At This Time Childhood Exposure to Second-Hand Smoke: Yes Diet: regular Diet Comment: regular caffeine: No during the past year weight has: remained stable Dental Care, Regularly: Yes Physical Activity Frequency: Daily Seatbelt Use: always Sunscreen Use: Yes Assistive Devices: Walker Review of Systems Review of Systems: Unobtainable due to cognitive status Physical Exam Constitutional: Frail, chronically ill appearing. Awakens to voice but is nonverbal Eyes: PERRL, conjunctivae normal, anicteric sclerae ENMT: Mouth: + dry oral mucous membranes Neck: trachea midline, no thyromegaly Respiratory: normal respiratory effort, lungs clear to auscultation Cardiovascular: Rate/Rhythm: + irregularly irregular Extremities: no edema Gastrointestinal (Abdomen): Inspection/Auscultation: abdomen normal to inspection and normal bowel sounds Percussion/Palpation: abdomen soft Neurologic: awake (but nonverbal) Results & Data Vital Signs (Past 12 Hours) Vital Signs Temp Pulse Resp BP Pulse Ox O2 Del Method 08/22/22 08:05 36.3 C L 113 H 19 144/89 H 08/22/22 03:54 36.9 C 104 H 18 120/79 96 Room Air 08/21/22 23:47 37.1 C 101 H 18 126/42 L 97 Room Air Laboratory Results Laboratory Tests 08/21/22 08/22/22 08/22/22 Unknown 05:50 05:50 WBC 7.16 Hgb 12.4 L Hct 37.7 L Plt Count 128 L Sodium 155 H Potassium 3.8 Chloride 135 H Carbon Dioxide 17 L BUN 91 H Creatinine 1.86 H Glucose 228 H Urine Color Yellow Urine Appearance Cloudy A Ur Specific [place] 1.018 Urine Protein 1+ H Urine Glucose (UA) 3+ H Urine Blood Trace H Urine Nitrite Positive A Ur Leukocyte Esterase Trace H Urine Bacteria (Auto) 2+ H PG Care Time/CCT Total # of Minutes Spent Total Time Spent with Patient: Total time spent is greater than 50% in coordination of care (as documented) at patient's floor/unit and/or counseling patient: Coding Level of Care Code 54625 IN/OBS CONSULT LVL 5,80M Diagnoses Acute hypernatremia E87.0 Stage 3b chronic kidney disease N18.32 Cystitis N30.90
--- NOTE | 2022-08-22 13:27 | Pharmacy Report ---
Pharmacy Glycemic Short Note 2 - Date of Service August 22, 2022 - Glycemic Short BSG Results (Last 24 hours): 08/21/22 08/21/22 08/21/22 14:03 14:50 16:58 Glucose 544 H* POC Glucose 560 H* 452 H* 08/21/22 08/21/22 08/21/22 18:29 19:49 20:50 Glucose POC Glucose 431 H* 342 H* 228 H 08/21/22 08/21/22 08/21/22 21:19 21:37 22:27 Glucose 102 H POC Glucose 227 H 178 H 08/21/22 08/21/22 08/21/22 22:49 23:08 23:40 Glucose POC Glucose 130 H 150 H 131 H 08/22/22 08/22/22 08/22/22 00:14 00:45 01:46 Glucose POC Glucose 131 H 140 H 168 H 08/22/22 08/22/22 08/22/22 03:51 05:50 05:57 Glucose 228 H POC Glucose 258 H 222 H 08/22/22 08/22/22 08/22/22 08:11 08:42 09:16 Glucose POC Glucose 174 H 180 H 199 H 08/22/22 11:11 Glucose POC Glucose 236 H OUTPATIENT ANTIDIABETIC REGIMEN: * Farxiga 5 mg PO daily * Glipizide ER 5 mg PO daily * Metformin ER 500 mg PO BID * Tradjenta 5 mg PO daily HbA1c = 9.4% on 07/23/22 ASSESSMENT: * 86 y/o M admitted for HHS last night. IV fluids and insulin drip was started on him yesterday. * BSGs trended down overnight and insulin drip rate was turned off this morning. * Patient is currently getting Dextrose in IV fluids running at 150 ml/hr which will contribute to elevated BSGs. Per Nephro, continue Dextrose. * He is also ordered a diet. * Patient is known to glycemic service from past admissions. Basal insulin 12 units once daily has worked well, therefore will continue the same. * Novolog parameters chosen based on previous admissions also. PLAN FOR INPATIENT GLYCEMIC CONTROL: * Hold outpatient oral diabetes medications * Basal insulin * Lantus 12 units SQ QAM * Bolus insulin * NovoLog per scale ACHS or Q6hrs while NPO * Goal Range: Low 110 mg/dL - High 150 mg/dL * Correction Factor: 45 mg/dL/unit * Nutritional / Prandial insulin per carb ratio of 1 unit per 10 grams CHO consumed
[2022-08-22 15:06] LABS: BUN Creatinine Ratio 46.5 (10-20); Creatinine Clr Calc Pharmacy 24.8 ml/min; Est GFR (African American) 36.9 ml/min; Est GFR (Non-African American) 31.8 ml/min; Potassium 4.6 mmol/L (3.5-5.1)
--- NOTE | 2022-08-22 23:01 | Hospitalist Progress Note ---
Date of Service August 22, 2022 Assessment & Plan (1) Hyperosmolar hyperglycemic state (HHS): Plan: -Admit to the PCU on tele -Currently stable -Patient noted to have significant hyperglycemia of 544, no ketones in his urine, VBG with pH of 7.27 -AG WNL, bicarb at 15 -Likely caused by acute UTI and only being on oral antihyperglycemics -Lactate ordered on admission is in process -Potassium at 3.6, Will give 40 meq PO KCL prior to starting Insulin drip -Start insulin drip with [facility] protocol -ED ordered Normosol at 250 mL/hr, will be started soon -Confirmed with nursing staff and communication placed to let correspondence dictator provider know when his BSG falls below 300 so Normosol can be changed to D5w -Hold oral antihyperglycemics -Will repeat BMP, Mag, and VBG in 3 hours to ensure he is correcting adequately -Monitor intake and output q6h -BL SCD's and home Eliquis for DVT PPX -AM CBC, BMP, mag, PT/INR -HH and DMII diet, minced/moist with honey thick liquids -PT/OT consults ordered as patient may need home health On 08/22 consulted nephro: continue D5W IVF. will monitor (2) Acute hypernatremia: Plan: -Corrected sodium of 158 in the ED -Due to severe dehydration with HHS and high Urostomy output -Continue IV hydration -sodium slowly improving. (3) UTI (urinary tract infection): Plan: -Patient noted to have UA indicative of acute UTI today -Has previously grown Enterococcus Faecalis, Pseudomonas, and Klebsella -After review of previous urine cultures/sensitivities and discussions with Pharmacy, will start the patient on Daptomycin and Meropenem -Will hold oral antihyperglycemics and statin while on Dapto -Follow urine and blood cultures -Urostomy management ordered will consider ID consult (4) Abnormal ECG: Plan: -ECG in the ED noted to have ST depressions in the inferolateral leads -This was when the patient was in afib RVR -The patient has been without chest pain and hemodynamically stable -Likely due to demand from acute illness and severe dehydration on arrival -Will continue to monitor on tele, will order repeat ECG for the am (5) Periostitis of ankle: Plan: -S/P debridement last admission by Orthopedics -Coupled outpatient course of Cefepime in rehab -Appears to be healing well, no acute signs of infection -Wound care nurse consult placed (6) Silent aspiration: Plan: -Long history -Stable on RA today with stable chronic findings on CXR today -Will continue with minced/moist diet with honey thick liquids (7) Paroxysmal atrial fibrillation: Plan: -Initially noted to be in afib RVR with HR in the low 100's on arrival -Currently stable -Continue IV hydration -Continue Eliquis -Monitor on tele (8) Hypertension: Plan: -Currently stable -Not on antihypertensives, continue to monitor (9) Dyslipidemia: Plan: -Hold statin while on Daptomycin (10) MGUS (monoclonal gammopathy of unknown significance): Plan: -Has been monitoring outpatient -WBC currently at 3.44, likely due to acute infection -Monitor daily CBC with diff for now Admission and Anticipated Discharge Date Admission Date: August 21, 2022 Subjective Patient reports no new symptoms Review of Systems Review of Systems: All systems reviewed & are unremarkable except as noted in HPI & below Physical Exam Physical Exam: General: In no acute distress, stated age, ill appearing but non-toxic HEENT: Normocephalic, atraumatic, no scleral icterus, pupils around round, symmetrical, and reactive to light, Dry mucus membranes, trachea midline, no thyromegaly Chest/Pulm: No respiratory distress, symmetrical chest expansion, clear breath sounds throughout Cardiac: irregular rate and rhythm, no murmurs noted Abdomen: Urostomy bag is in place in the RLQ, currently draining clear, yellow urine,Negative for ascites and bruising, normoactive bowel sounds, soft, non-tender to palpation throughout Musculoskeletal: Patient able to move all extremities voluntarily, left lateral ankle wound appears to be healing well without acute signs of infection Extremities: Radial, dorsalis pedis, and posterior tibial pulses are intact and symmetrical, no edema noted in the BL LE's Skin: As described above Neuro: Alert and oriented to person, place, and year, no focal defects, CN II-XII tested and intact, no tremors noted Psych: No acute distress, calm and cooperative during the exam Results & Data Results & Data Vital Signs (Past 12 Hours) Vital Signs Temp Pulse Pulse Resp BP Pulse Ox O2 Del Method 08/22/22 19:47 36.6 C 74 16 105/67 99 Room Air 08/22/22 16:42 97 H 08/22/22 16:05 36.8 C 109 H 19 127/76 92 Room Air 08/22/22 12:01 37.0 C 78 20 130/83 96 Room Air 08/22/22 11:12 Room Air PG Care Time/CCT Total # of Minutes Spent Total Time Spent with Patient: Total time spent is greater than 50% in coordination of care (as documented) at patient's floor/unit and/or counseling patient: Coding Level of Care Code 40200 SUB INP/OBS CARE 2/35MIN Diagnoses Hyperosmolar hyperglycemic state (HHS) E11.00 Acute hypernatremia E87.0 UTI (urinary tract infection) N39.0 Abnormal ECG R94.31 Periostitis of ankle M86.9 Silent aspiration T17.900A Paroxysmal atrial fibrillation I48.0 Hypertension I10 Dyslipidemia E78.5 MGUS (monoclonal gammopathy of unknown significance) D47.2
[2022-08-22] MEDS ORDERED: LACTATED RINGER'S 1,000 ML IV SCH (23:45)
[2022-08-23] MEDS: SODIUM CHLORIDE 0.9% 1000ML 1,000 ML IV SCH ×2 (01:16→09:05)
[2022-08-23] MEDS: MEROPENEM 500 MG in SYRINGE 0 ML IV SCH ×3 (04:33→19:52)
[2022-08-23 06:16] LABS: Hematocrit (blood only) 32.1 % (42.0-52.0); Hemoglobin 10.9 g/dl (14.0-18.0); Mean Corpuscular Hemoglobin 33.4 pg (25.0-34.0); Mean Corpuscular Volume 98.5 fL (80.0-100.0); Mean Platelet Volume 11.5 fL (9.4-12.4); Platelet Count 116 K/uL (130-400); RDW Coefficient of Variation 15.2 % (11.5-14.5); RDW Standard Deviation 55.3 fL (36.4-46.3); Red Blood Count 3.26 M/uL (4.70-6.10); White Blood Count 9.07 K/ul (4.8-10.8)
[2022-08-23 06:30] LABS: BUN Creatinine Ratio 44.3 (10-20); Calcium 8.6 mg/dl (8.6-10.3); Creatinine Clr Calc Pharmacy 28.5 ml/min; Est GFR (African American) 40.3 ml/min; Est GFR (Non-African American) 34.7 ml/min; Magnesium 1.7 mg/dl (1.7-2.4); Potassium 3.9 mmol/L (3.5-5.1)
[2022-08-23 06:40] LABS: Basophils # (auto) 0.02 K/uL (0-0.2); Basophils % (auto) 0.2 %; Dohle Bodies 1+; Echinocytes 1+; Eosinophils % (auto) 1.1 %; Immature Granulocytes # (auto) 0.07 K/uL (0.01-0.20); Immature Granulocytes % (auto) 0.8 %; Lymphocytes # (auto) 1.03 K/uL (1.2-3.4); Lymphocytes % (auto) 11.4 %; Monocytes # (auto) 0.35 K/uL (0.11-0.59); Monocytes % (auto) 3.9 %; Neutrophils % (auto) 82.6 %; Ovalocytes 1+; Tear Drop Cells 1+
[2022-08-23 06:41] LABS: INR 1.1 (0.9-1.1); Prothrombin Time 12.3 Seconds (9.0-12.0)
[2022-08-23] MEDS: INSULIN ASPART PER UNIT CHARGE SC SCH ×4 (09:00→21:58)
[2022-08-23] MEDS: APIXABAN 2.5 MG TAB PO SCH ×2 (09:07→19:53)
[2022-08-23] MEDS: FAMOTIDINE 20 MG TAB PO SCH (09:09)
[2022-08-23] MEDS: CYANOCOBALAMIN (B-12) 500 MCG TABLET PO SCH (09:11)
[2022-08-23] MEDS ORDERED: Nursing to Pharmacy Communication SCH (09:45)
[2022-08-23] MEDS ORDERED: LANTUS PER UNIT CHARGE SC ONE (10:00)
[2022-08-23 10:15] LABS: Base Excess VBG -10.4 mEq/L; HCO3 VBG 15 mmol/L; Oxygen Saturation VBG 68.2 %; PCO2 VBG 30 mmHg (38-50); PO2 VBG 41 mmHg
--- NOTE | 2022-08-23 14:00 | Nephrology Progress Note ---
Date of Service August 23, 2022 Assessment & Plan (1) Acute hypernatremia: (2) Failure to thrive: (3) Stage 3b chronic kidney disease: (4) Acute renal failure: Plan Mr. Espinosa is an 86 year old male admitted to the hospital with generalized weakness and hyperglycemia. On admission he was found to be hyponatremic, serum sodium was 158, S5 44, creatinine was 1.9 and urinalysis is positive for urinary tract infection. He was started on D5W with improvement in serum sodium to 145 yesterday and IV fluid changed to normal saline yesterday and sodium staying around 145. he was started on meropenem and daptomycin pending blood and urine culture. Has history of stage IIIB CKD, b/l Cr 1.7-1.8 w/ EGFR 32 cc/min. recent CT abdomen pelvis was negative for postrenal obstruction. He was found to have moderate degree proteinuria, UIEP and [place]/Lambda free light chain ratio have been positive for monoclonal protein.Has h/o atrial fibrillation (Eliquis), AODM, HTN, MGUS, dementia and urothelial carcinoma of the bladder s/p R hemicolectomy/cystectomy/prostatectomy with RLQ ileal conduit and urostomy and recurrent UTI and dehydration resulting in TRAVIS/CKD. he also has history of aspiration risk and has been on thick liquids. Was recently seen as a new patient at [facility] however considering his multiple comorbidities and difficulty with ambulation family just wanted to follow with his PCP. -- change IV fluid to half-normal saline at 125 mL/hour -- start on sodium bicarbonate 650 mg twice a day. -- monitor renal function and electrolyte, intake and output will follow the Admission and Anticipated Discharge Date Admission Date: August 21, 2022 Jazmine Lim was seen and evaluated this morning. He seem really weak and lethargic however answered question appropriately denies any specific symptom. serum sodium improved to 145 and stayed stable while on normal saline. Renal function stable. BP acceptable. Review of Systems Review of Systems: Detail ROS was unremarkable. Physical Exam Constitutional: WD/WN, vitals as above + frail appearing; no acute distress Eyes: + anicteric sclerae Neck: normal visual inspection Respiratory: no respiratory distress and no cough Auscultation: + diminished lung sounds Cardiovascular: RRR, no murmur, no edema Skin: no rashes, warm and dry Neurologic: no focal motor deficits Psychiatric: Orientation: alert and oriented x 3 Results & Data Vital Signs (Past 12 Hours) Vital Signs Temp Pulse Resp BP Pulse Ox O2 Del Method 08/23/22 12:15 36.7 C 60 15 108/68 99 Room Air 08/23/22 09:00 Room Air 08/23/22 07:40 36.9 C 101 H 16 137/99 98 Room Air 08/23/22 03:15 36.6 C 104 H 18 135/75 98 Room Air PG Care Time/CCT Total # of Minutes Spent Total Time Spent with Patient: Total time spent is greater than 50% in coordination of care (as documented) at patient's floor/unit and/or counseling patient: Coding Level of Care Code 59580 SUB INP/OBS CARE 3/50MIN Diagnoses Acute hypernatremia E87.0 Failure to thrive Stage 3b chronic kidney disease N18.32 Acute renal failure N17.9
[2022-08-23] MEDS: SODIUM CHLORIDE 0.45 % 1,000 ML IV SCH (16:36)
[2022-08-23] MEDS: DAPTOmycin 275 MG in SYRINGE 0 ML IV SCH (19:52)
[2022-08-23] MEDS ORDERED: LANTUS PER UNIT CHARGE SC SCH (21:00)
--- NOTE | 2022-08-23 23:23 | Hospitalist Progress Note ---
Date of Service August 23, 2022 Assessment & Plan (1) Hyperosmolar hyperglycemic state (HHS): Plan: -Admit to the PCU on tele -Currently stable -Patient noted to have significant hyperglycemia of 544, no ketones in his urine, VBG with pH of 7.27 -AG WNL, bicarb at 15 -Likely caused by acute UTI and only being on oral antihyperglycemics -Lactate ordered on admission is in process -Potassium at 3.6, Will give 40 meq PO KCL prior to starting Insulin drip -Start insulin drip with [facility] protocol -ED ordered Normosol at 250 mL/hr, will be started soon -Confirmed with nursing staff and communication placed to let contract technical writer provider know when his BSG falls below 300 so Normosol can be changed to D5w -Hold oral antihyperglycemics -Will repeat BMP, Mag, and VBG in 3 hours to ensure he is correcting adequately -Monitor intake and output q6h -BL SCD's and home Eliquis for DVT PPX -AM CBC, BMP, mag, PT/INR -HH and DMII diet, minced/moist with honey thick liquids -PT/OT consults ordered as patient may need home health On 08/23 consulted nephro: appears to have resolved Now on half normal saline, will monitor, patient may need weekly labs at home to ensure patient is not becoming dehydrated. (2) Acute hypernatremia: Plan: -Corrected sodium of 158 in the ED -Due to severe dehydration with HHS and high Urostomy output -Continue IV hydration -sodium improved. (3) UTI (urinary tract infection): Plan: -Patient noted to have UA indicative of acute UTI today -Has previously grown Enterococcus Faecalis, Pseudomonas, and Klebsella -After review of previous urine cultures/sensitivities and discussions with Pharmacy, will start the patient on Daptomycin and Meropenem -Will hold oral antihyperglycemics and statin while on Dapto -Follow urine and blood cultures -Urostomy management ordered will consider ID consult on Thursday. (4) Abnormal ECG: Plan: -ECG in the ED noted to have ST depressions in the inferolateral leads -This was when the patient was in afib RVR -The patient has been without chest pain and hemodynamically stable -Likely due to demand from acute illness and severe dehydration on arrival -Will continue to monitor on tele, will order repeat ECG for the am (5) Periostitis of ankle: Plan: -S/P debridement last admission by Orthopedics -Coupled outpatient course of Cefepime in rehab -Appears to be healing well, no acute signs of infection -Wound care nurse consult placed (6) Silent aspiration: Plan: -Long history -Stable on RA today with stable chronic findings on CXR today -Will continue with minced/moist diet with honey thick liquids (7) Paroxysmal atrial fibrillation: Plan: -Initially noted to be in afib RVR with HR in the low 100's on arrival -Currently stable -Continue IV hydration -Continue Eliquis -Monitor on tele (8) Hypertension: Plan: -Currently stable -Not on antihypertensives, continue to monitor (9) Dyslipidemia: Plan: -Hold statin while on Daptomycin (10) MGUS (monoclonal gammopathy of unknown significance): Plan: -Has been monitoring outpatient -WBC currently at 3.44, likely due to acute infection -Monitor daily CBC with diff for now Admission and Anticipated Discharge Date Admission Date: August 21, 2022 Subjective Patient reports no new symptoms. Family at bedside and are updated. Review of Systems Review of Systems: All systems reviewed & are unremarkable except as noted in HPI & below Physical Exam Physical Exam: General: In no acute distress, stated age, ill appearing but non-toxic HEENT: Normocephalic, atraumatic, no scleral icterus, pupils around round, symmetrical, and reactive to light, trachea midline, no thyromegaly Chest/Pulm: No respiratory distress, symmetrical chest expansion, clear breath sounds throughout Cardiac: irregular rate and rhythm, no murmurs noted Abdomen: Urostomy bag is in place in the RLQ, currently draining clear, yellow urine,Negative for ascites and bruising, normoactive bowel sounds, soft, non-tender to palpation throughout Musculoskeletal: Patient able to move all extremities voluntarily, left lateral ankle wound appears to be healing well without acute signs of infection Extremities: Radial, dorsalis pedis, and posterior tibial pulses are intact and symmetrical, no edema noted in the BL LE's Skin: As described above Neuro: Alert and oriented to person, place, and year, no focal defects, CN II-XII tested and intact, no tremors noted Psych: No acute distress, calm and cooperative during the exam Results & Data Results & Data Vital Signs (Past 12 Hours) Vital Signs Temp Pulse Resp BP Pulse Ox O2 Del Method 08/23/22 22:25 Room Air 08/23/22 19:23 37.0 C 98 H 18 134/88 99 Room Air 08/23/22 16:03 37.0 C 100 H 16 116/71 98 Room Air 08/23/22 12:15 36.7 C 60 15 108/68 99 Room Air PG Care Time/CCT Total # of Minutes Spent Total Time Spent with Patient: Total time spent is greater than 50% in coordination of care (as documented) at patient's floor/unit and/or counseling patient: Coding Level of Care Code 20278 SUB INP/OBS CARE 2/35MIN Diagnoses Hyperosmolar hyperglycemic state (HHS) E11.00 Acute hypernatremia E87.0 UTI (urinary tract infection) N39.0 Abnormal ECG R94.31 Periostitis of ankle M86.9 Silent aspiration T17.900A Paroxysmal atrial fibrillation I48.0 Hypertension I10 Dyslipidemia E78.5 MGUS (monoclonal gammopathy of unknown significance) D47.2
[2022-08-24] MEDS: SODIUM BICARBONATE 650 MG TAB PO SCH ×3 (00:19→20:18)
[2022-08-24] MEDS: SODIUM CHLORIDE 0.45 % 1,000 ML IV SCH ×2 (01:01→09:18)
[2022-08-24] MEDS: MEROPENEM 500 MG in SYRINGE 0 ML IV SCH ×3 (03:59→19:36)
[2022-08-24 06:48] LABS: Basophils # (auto) 0.01 K/uL (0-0.2); Basophils % (auto) 0.1 %; Eosinophils # (auto) 0.12 K/uL (0-0.50); Eosinophils % (auto) 1.5 %; Hematocrit (blood only) 33.4 % (42.0-52.0); Hemoglobin 11.1 g/dl (14.0-18.0); Immature Granulocytes # (auto) 0.04 K/uL (0.01-0.20); Immature Granulocytes % (auto) 0.5 %; Lymphocytes # (auto) 1.16 K/uL (1.2-3.4); Lymphocytes % (auto) 14.1 %; Mean Corpuscular Hemoglobin 32.7 pg (25.0-34.0); Mean Corpuscular Hgb Conc 33.2 g/dL (32.0-36.0); Mean Corpuscular Volume 98.5 fL (80.0-100.0); Mean Platelet Volume 11.6 fL (9.4-12.4); Monocytes # (auto) 0.28 K/uL (0.11-0.59); Monocytes % (auto) 3.4 %; Neutrophils % (auto) 80.4 %; Platelet Count 115 K/uL (130-400); RDW Coefficient of Variation 15.2 % (11.5-14.5); RDW Standard Deviation 54.9 fL (36.4-46.3); Red Blood Count 3.39 M/uL (4.70-6.10); White Blood Count 8.21 K/ul (4.8-10.8)
[2022-08-24 07:16] LABS: INR 1.1 (0.9-1.1); Prothrombin Time 11.9 Seconds (9.0-12.0)
[2022-08-24 07:18] LABS: BUN Creatinine Ratio 39.2 (10-20); Calcium 8.7 mg/dl (8.6-10.3); Creatinine Clr Calc Pharmacy 28.1 ml/min; Est GFR (African American) 39.7 ml/min; Est GFR (Non-African American) 34.3 ml/min; Magnesium 1.7 mg/dl (1.7-2.4); Potassium 3.9 mmol/L (3.5-5.1)
[2022-08-24] MEDS: APIXABAN 2.5 MG TAB PO SCH ×2 (07:59→20:18)
[2022-08-24] MEDS: FAMOTIDINE 20 MG TAB PO SCH (07:59)
[2022-08-24] MEDS: CYANOCOBALAMIN (B-12) 500 MCG TABLET PO SCH (08:00)
[2022-08-24] MEDS: INSULIN ASPART PER UNIT CHARGE SC SCH ×4 (08:05→20:15)
[2022-08-24] MEDS ORDERED: LANTUS PER UNIT CHARGE SC SCH ×2 (09:00→21:00)
[2022-08-24] MEDS: DEXTROSE 5% 1,000 ML IV SCH ×2 (12:00→23:33)
--- NOTE | 2022-08-24 12:42 | Nephrology Progress Note ---
Date of Service August 24, 2022 Assessment & Plan (1) Acute hypernatremia: (2) Failure to thrive: (3) Stage 3b chronic kidney disease: (4) Acute renal failure: Plan Mr. Espinosa is an 86 year old male admitted to the hospital with generalized weakness and hyperglycemia. On admission he was found to be hyponatremic, serum sodium was 158, S5 44, creatinine was 1.9 and urinalysis is positive for urinary tract infection. He was started on D5W with improvement in serum sodium to 145 yesterday and IV fluid changed to normal saline yesterday and sodium staying around 145. he was started on meropenem and daptomycin pending blood and urine culture. Has history of stage IIIB CKD, b/l Cr 1.7-1.8 w/ EGFR 32 cc/min. recent CT abdomen pelvis was negative for postrenal obstruction. He was found to have moderate degree proteinuria, UIEP and [place]/Lambda free light chain ratio have been positive for monoclonal protein.Has h/o atrial fibrillation (Eliquis), AODM, HTN, MGUS, dementia and urothelial carcinoma of the bladder s/p R hemicolectomy/cystectomy/prostatectomy with RLQ ileal conduit and urostomy and recurrent UTI and dehydration resulting in TRAVIS/CKD. he also has history of aspiration risk and has been on thick liquids. Was recently seen as a new patient [facility] however considering his multiple comorbidities and difficulty with ambulation family just wanted to follow with his PCP. -- change IV fluid to D5W at 80 mL/hour, encouraged po intake. -- continue sodium bicarbonate 650 mg twice a day. -- monitor renal function and electrolyte, intake and output Admission and Anticipated Discharge Date Admission Date: August 21, 2022 Jazmine Lim was seen and evaluated this morning. He remains weak and lethargic however answered question appropriately denies any specific symptom. serum sodium again went up to 147 while on half normal saline. Renal function stable. BP acceptable. Review of Systems Review of Systems: Detail ROS was unremarkable. Physical Exam Constitutional: WD/WN, vitals as above + frail appearing; no acute distress Eyes: + anicteric sclerae Neck: normal visual inspection Respiratory: no respiratory distress and no cough Auscultation: + diminished lung sounds Cardiovascular: RRR, no murmur, no edema Skin: no rashes, warm and dry Neurologic: no focal motor deficits Psychiatric: Orientation: alert and oriented x 3 Results & Data Vital Signs (Past 12 Hours) Vital Signs Temp Pulse Pulse Resp BP Pulse Ox O2 Del Method 08/24/22 11:30 37.0 C 66 16 109/65 97 Room Air 08/24/22 08:09 Room Air 08/24/22 08:00 36.7 C 79 16 134/62 96 Room Air 08/24/22 02:57 37.1 C 90 18 147/93 H 96 Room Air 08/24/22 01:08 96 H PG Care Time/CCT Total # of Minutes Spent Total Time Spent with Patient: Total time spent is greater than 50% in coordination of care (as documented) at patient's floor/unit and/or counseling patient: Coding Level of Care Code 34197 SUB INP/OBS CARE 2/35MIN Diagnoses Acute hypernatremia E87.0 Failure to thrive Stage 3b chronic kidney disease N18.32 Acute renal failure N17.9
--- NOTE | 2022-08-24 13:13 | Pharmacy Report ---
Pharmacy Glycemic Short Note 2 - Date of Service August 24, 2022 - Glycemic Short BSG Results (Last 24 hours): 08/23/22 08/23/22 08/24/22 16:29 20:37 06:24 Glucose 107 H POC Glucose 142 H 209 H 08/24/22 08/24/22 07:30 11:58 Glucose POC Glucose 118 H 196 H OUTPATIENT ANTIDIABETIC REGIMEN: * Farxiga 5 mg PO daily * Glipizide ER 5 mg PO daily * Metformin ER 500 mg PO BID * Tradjenta 5 mg PO daily HbA1c = 9.4% on 07/23/22 ASSESSMENT: 08/24/22: * BSGs noticeably improved yesterday, basal insulin reduced in light of fasting BSG of 94 mg/dL and patient not eating * Received 11 units of insulin yesterday (9 units of basal and 2 units of bolus) * D5W @80 mL/hr ordered by nephrology today 08/22/22: * 86 y/o M admitted for [facility] last night. IV fluids and insulin drip was started on him yesterday. * BSGs trended down overnight and insulin drip rate was turned off this morning. * Patient is currently getting Dextrose in IV fluids running at 150 ml/hr which will contribute to elevated BSGs. Per Nephro, continue Dextrose. * He is also ordered a diet. * Patient is known to glycemic service from past admissions. Basal insulin 12 units once daily has worked well, therefore will continue the same. * Novolog parameters chosen based on previous admissions also. PLAN FOR INPATIENT GLYCEMIC CONTROL: * Hold outpatient oral diabetes medications * Basal insulin * Lantus 5 units SC this morning * Lantus 5-7 units SC HS (see EHR for details) * Bolus insulin * NovoLog per scale ACHS or Q6hrs while NPO * Goal Range: Low 110 mg/dL - High 150 mg/dL * Correction Factor: 45 mg/dL/unit * Nutritional / Prandial insulin per carb ratio of 1 unit per 10 grams CHO consumed with breakfast, and 1 unit per 15 grams CHO consumed with lunch, dinner, and at HS
--- NOTE | 2022-08-24 22:12 | Hospitalist Progress Note ---
Date of Service August 24, 2022 Assessment & Plan (1) Hyperosmolar hyperglycemic state (HHS): Plan: -Admit to the PCU on tele -Currently stable -Patient noted to have significant hyperglycemia of 544, no ketones in his urine, VBG with pH of 7.27 -AG WNL, bicarb at 15 -Likely caused by acute UTI and only being on oral antihyperglycemics -Lactate ordered on admission is in process -Potassium at 3.6, Will give 40 meq PO KCL prior to starting Insulin drip -Start insulin drip with [facility] protocol -ED ordered Normosol at 250 mL/hr, will be started soon -Confirmed with nursing staff and communication placed to let database administration associate provider know when his BSG falls below 300 so Normosol can be changed to D5w -Hold oral antihyperglycemics -Will repeat BMP, Mag, and VBG in 3 hours to ensure he is correcting adequately -Monitor intake and output q6h -BL SCD's and home Eliquis for DVT PPX -AM CBC, BMP, mag, PT/INR -HH and DMII diet, minced/moist with honey thick liquids -PT/OT consults ordered as patient may need home health On 08/23 consulted nephro: appears to have resolved Now on half normal saline, will monitor, patient may need weekly labs at home to ensure patient is not becoming dehydrated. 08/24 Sodium slightly worse, will reinstitute D5W (2) Acute hypernatremia: Plan: -Corrected sodium of 158 in the ED -Due to severe dehydration with HHS and high Urostomy output -Continue IV hydration -sodium improved. (3) UTI (urinary tract infection): Plan: -Patient noted to have UA indicative of acute UTI today -Has previously grown Enterococcus Faecalis, Pseudomonas, and Klebsella -After review of previous urine cultures/sensitivities and discussions with Pharmacy, will start the patient on Daptomycin and Meropenem -Will hold oral antihyperglycemics and statin while on Dapto -Follow urine and blood cultures -Urostomy management ordered will consider ID consult on Thursday. (4) Abnormal ECG: Plan: -ECG in the ED noted to have ST depressions in the inferolateral leads -This was when the patient was in afib RVR -The patient has been without chest pain and hemodynamically stable -Likely due to demand from acute illness and severe dehydration on arrival -Will continue to monitor on tele, will order repeat ECG for the am (5) Periostitis of ankle: Plan: -S/P debridement last admission by Orthopedics -Coupled outpatient course of Cefepime in rehab -Appears to be healing well, no acute signs of infection -Wound care nurse consult placed (6) Silent aspiration: Plan: -Long history -Stable on RA today with stable chronic findings on CXR today -Will continue with minced/moist diet with honey thick liquids (7) Paroxysmal atrial fibrillation: Plan: -Initially noted to be in afib RVR with HR in the low 100's on arrival -Currently stable -Continue IV hydration -Continue Eliquis -Monitor on tele (8) Hypertension: Plan: -Currently stable -Not on antihypertensives, continue to monitor (9) Dyslipidemia: Plan: -Hold statin while on Daptomycin (10) MGUS (monoclonal gammopathy of unknown significance): Plan: -Has been monitoring outpatient -WBC currently at 3.44, likely due to acute infection -Monitor daily CBC with diff for now Admission and Anticipated Discharge Date Admission Date: August 21, 2022 Subjective Patient has no new complaints. Review of Systems Review of Systems: All systems reviewed & are unremarkable except as noted in HPI & below Physical Exam Physical Exam: General: In no acute distress, stated age, ill appearing but non-toxic HEENT: Normocephalic, atraumatic, no scleral icterus, pupils around round, symmetrical, and reactive to light, trachea midline, no thyromegaly Chest/Pulm: No respiratory distress, symmetrical chest expansion, clear breath sounds throughout Cardiac: irregular rate and rhythm, no murmurs noted Abdomen: Urostomy bag is in place in the RLQ, currently draining clear, yellow urine,Negative for ascites and bruising, normoactive bowel sounds, soft, non-tender to palpation throughout Musculoskeletal: Patient able to move all extremities voluntarily, left lateral ankle wound appears to be healing well without acute signs of infection Extremities: Radial, dorsalis pedis, and posterior tibial pulses are intact and symmetrical, no edema noted in the BL LE's Skin: As described above Neuro: Alert and oriented to person, place, and year, no focal defects, CN II-XII tested and intact, no tremors noted Psych: No acute distress, calm and cooperative during the exam Results & Data Results & Data Vital Signs (Past 12 Hours) Vital Signs Temp Pulse Resp BP Pulse Ox O2 Del Method 08/24/22 21:09 Room Air 08/24/22 19:54 37.1 C 86 18 140/84 99 Room Air 08/24/22 16:00 36.9 C 86 18 129/63 97 Room Air 08/24/22 11:30 37.0 C 66 16 109/65 97 Room Air PG Care Time/CCT Total # of Minutes Spent Total Time Spent with Patient: Total time spent is greater than 50% in coordination of care (as documented) at patient's floor/unit and/or counseling patient: Coding Level of Care Code 79081 SUB INP/OBS CARE 2/35MIN Diagnoses Hyperosmolar hyperglycemic state (HHS) E11.00 Acute hypernatremia E87.0 UTI (urinary tract infection) N39.0 Abnormal ECG R94.31 Periostitis of ankle M86.9 Silent aspiration T17.900A Paroxysmal atrial fibrillation I48.0 Hypertension I10 Dyslipidemia E78.5 MGUS (monoclonal gammopathy of unknown significance) D47.2
[2022-08-25] MEDS ORDERED: INSULIN ASPART PER UNIT CHARGE SC SCH (02:00)
[2022-08-25] MEDS: MEROPENEM 500 MG in SYRINGE 0 ML IV SCH ×3 (04:13→19:47)
[2022-08-25] MEDS: LANTUS PER UNIT CHARGE SC SCH (07:06)
[2022-08-25] MEDS: FAMOTIDINE 20 MG TAB PO SCH (08:20)
[2022-08-25] MEDS: CYANOCOBALAMIN (B-12) 500 MCG TABLET PO SCH (08:20)
[2022-08-25] MEDS: APIXABAN 2.5 MG TAB PO SCH ×2 (08:20→20:00)
[2022-08-25] MEDS: SODIUM BICARBONATE 650 MG TAB PO SCH ×2 (08:21→20:00)
[2022-08-25] MEDS: INSULIN ASPART PER UNIT CHARGE SC SCH ×4 (08:24→20:37)
--- NOTE | 2022-08-25 08:29 | Electrocardiogram Report ---
Test Reason : Blood Pressure : / mmHG Vent. Rate : 109 BPM Atrial Rate : 000 BPM P-R Int : 000 ms QRS Dur : 092 ms QT Int : 276 ms P-R-T Axes : 000 068 251 degrees QTc Int : 371 ms Atrial fibrillation with rapid ventricular response with premature ventricular or aberrantly conducte d complexes Septal infarct , age undetermined Abnormal ECG When compared with ECG of 21-AUG-2022 14:28, QT has shortened Confirmed by Jabier Leblanc ([id number]) on 08/24/2022 1:35:42 PM Referred By: REFERRED SELF Confirmed By:Jabier Leblanc
[2022-08-25] MEDS ORDERED: LANTUS PER UNIT CHARGE SC ONE (09:00)
--- NOTE | 2022-08-25 10:45 | Nephrology Progress Note ---
Date of Service August 25, 2022 Assessment & Plan (1) Acute hypernatremia: (2) Failure to thrive: (3) Stage 3b chronic kidney disease: (4) Acute renal failure: Plan Mr. Espinosa is an 86 year old male admitted to the hospital with generalized weakness and hyperglycemia. On admission he was found to be hyponatremic, serum sodium was 158, S5 44, creatinine was 1.9 and urinalysis is positive for urinary tract infection. He was started on D5W with improvement in serum sodium to 145 yesterday and IV fluid changed to normal saline yesterday and sodium staying around 145. he was started on meropenem and daptomycin pending blood and urine culture. Has history of stage IIIB CKD, b/l Cr 1.7-1.8 w/ EGFR 32 cc/min. recent CT abdomen pelvis was negative for postrenal obstruction. He was found to have moderate degree proteinuria, UIEP and [place]/Lambda free light chain ratio have been positive for monoclonal protein.Has h/o atrial fibrillation (Eliquis), AODM, HTN, MGUS, dementia and urothelial carcinoma of the bladder s/p R hemicolectomy/cystectomy/prostatectomy with RLQ ileal conduit and urostomy and recurrent UTI and dehydration resulting in TRAVIS/CKD. he also has history of aspiration risk and has been on thick liquids. Was recently seen as a new patient at [facility] however considering his multiple comorbidities and difficulty with ambulation family just wanted to follow with his PCP. Overall clinically stable, blood pressure, volume status acceptable. Did not have any lab done this morning. -- will check renal panel now and make necessary changes based on the serum sodium. --continue D5W at 80 mL/hour, encouraged po intake. -- continue sodium bicarbonate 650 mg twice a day. -- monitor renal function and electrolyte, intake and output Admission and Anticipated Discharge Date Admission Date: August 21, 2022 Jazmine Lim was seen and evaluated this morning. He remains weak and lethargic however answered question appropriately, denies any specific symptom. No shortness of breath or chest pain. Decent appetite and had breakfast this morning. Continues on D5W at 80 mL/hour, labs from this morning currently p ending. BP acceptable. Review of Systems Review of Systems: Detail ROS was unremarkable. Physical Exam Constitutional: WD/WN, vitals as above + frail appearing; no acute distress Eyes: + anicteric sclerae Neck: normal visual inspection Respiratory: no respiratory distress and no cough Auscultation: + diminished lung sounds Cardiovascular: RRR, no murmur, no edema Skin: no rashes, warm and dry Neurologic: no focal motor deficits Psychiatric: Orientation: alert and oriented x 3 Results & Data Vital Signs (Past 12 Hours) Vital Signs Temp Pulse Pulse Resp BP Pulse Ox O2 Del Method 08/25/22 07:39 37 C 70 18 143/69 H 97 Room Air 08/25/22 07:00 75 08/25/22 03:26 36.9 C 88 16 130/78 98 Room Air 08/25/22 00:04 88 08/24/22 23:17 37.1 C 94 H 17 132/76 98 Room Air PG Care Time/CCT Total # of Minutes Spent Total Time Spent with Patient: Total time spent is greater than 50% in coordination of care (as documented) at patient's floor/unit and/or counseling patient: Coding Level of Care Code 78621 SUB INP/OBS CARE 2/35MIN Diagnoses Acute hypernatremia E87.0 Failure to thrive Stage 3b chronic kidney disease N18.32 Acute renal failure N17.9
[2022-08-25 11:37] LABS: Albumin Level 2.7 gm/dl (3.4-5.0); BUN Creatinine Ratio 40.7 (10-20); Calcium 8.4 mg/dl (8.6-10.3); Creatinine Clr Calc Pharmacy 27.2 ml/min; Est GFR (African American) 38.1 ml/min; Est GFR (Non-African American) 32.9 ml/min; Phosphorus 3.3 mg/dl (2.5-4.9); Potassium 3.4 mmol/L (3.5-5.1)
[2022-08-25] MEDS: DEXTROSE 5% 1,000 ML IV SCH ×2 (11:58→23:55)
[2022-08-25] MEDS: DAPTOmycin 275 MG in SYRINGE 0 ML IV SCH (19:49)
[2022-08-25] MEDS ORDERED: LANTUS PER UNIT CHARGE SC SCH (21:00)
--- NOTE | 2022-08-25 23:16 | Hospitalist Progress Note ---
Date of Service August 25, 2022 Assessment & Plan (1) Hyperosmolar hyperglycemic state (HHS): Plan: -Admit to the PCU on tele -Currently stable -Patient noted to have significant hyperglycemia of 544, no ketones in his urine, VBG with pH of 7.27 -AG WNL, bicarb at 15 -Likely caused by acute UTI and only being on oral antihyperglycemics -Lactate ordered on admission is in process -Potassium at 3.6, Will give 40 meq PO KCL prior to starting Insulin drip -Start insulin drip with [facility] protocol -ED ordered Normosol at 250 mL/hr, will be started soon -Confirmed with nursing staff and communication placed to let diffusion furnace operator provider know when his BSG falls below 300 so Normosol can be changed to D5w -Hold oral antihyperglycemics -Will repeat BMP, Mag, and VBG in 3 hours to ensure he is correcting adequately -Monitor intake and output q6h -BL SCD's and home Eliquis for DVT PPX -AM CBC, BMP, mag, PT/INR -HH and DMII diet, minced/moist with honey thick liquids -PT/OT consults ordered as patient may need home health On 08/23 consulted nephro: appears to have resolved Now on half normal saline, will monitor, patient may need weekly labs at home to ensure patient is not becoming dehydrated. 08/24 Sodium slightly worse, will reinstitute D5W 08/25 BIcarb appears low, sodium improved. appreciate input from nephrology (2) Acute hypernatremia: Plan: -Corrected sodium of 158 in the ED -Due to severe dehydration with HHS and high Urostomy output -Continue IV hydration -sodium improved. (3) UTI (urinary tract infection): Plan: -Patient noted to have UA indicative of acute UTI today -Has previously grown Enterococcus Faecalis, Pseudomonas, and Klebsella -After review of previous urine cultures/sensitivities and discussions with Pharmacy, will start the patient on Daptomycin and Meropenem -Will hold oral antihyperglycemics and statin while on Dapto -Follow urine and blood cultures -Urostomy management ordered ID consult placed. (4) Abnormal ECG: Plan: -ECG in the ED noted to have ST depressions in the inferolateral leads -This was when the patient was in afib RVR -The patient has been without chest pain and hemodynamically stable -Likely due to demand from acute illness and severe dehydration on arrival -Will continue to monitor on tele, will order repeat ECG for the am (5) Periostitis of ankle: Plan: -S/P debridement last admission by Orthopedics -Coupled outpatient course of Cefepime in rehab -Appears to be healing well, no acute signs of infection -Wound care nurse consult placed (6) Silent aspiration: Plan: -Long history -Stable on RA today with stable chronic findings on CXR today -Will continue with minced/moist diet with honey thick liquids (7) Paroxysmal atrial fibrillation: Plan: -Initially noted to be in afib RVR with HR in the low 100's on arrival -Currently stable -Continue IV hydration -Continue Eliquis -Monitor on tele (8) Hypertension: Plan: -Currently stable -Not on antihypertensives, continue to monitor (9) Dyslipidemia: Plan: -Hold statin while on Daptomycin (10) MGUS (monoclonal gammopathy of unknown significance): Plan: -Has been monitoring outpatient -WBC currently at 3.44, likely due to acute infection -Monitor daily CBC with diff for now Admission and Anticipated Discharge Date Admission Date: August 21, 2022 Subjective Patient reports feeling beter. Patient has no new symptoms. Review of Systems Review of Systems: All systems reviewed & are unremarkable except as noted in HPI & below Physical Exam Physical Exam: General: In no acute distress, stated age, ill appearing but non-toxic HEENT: Normocephalic, atraumatic Chest/Pulm: No respiratory distress, symmetrical chest expansion, clear breath sounds throughout Cardiac: irregular rate and rhythm, no murmurs noted Results & Data Results & Data Vital Signs (Past 12 Hours) Vital Signs Temp Pulse Resp BP Pulse Ox O2 Del Method 08/25/22 22:44 Room Air 08/25/22 19:29 36.6 C 64 20 110/70 96 Room Air 08/25/22 16:15 36.8 C 73 18 107/67 98 Room Air 08/25/22 11:26 36.5 C 51 L 18 100/51 L 97 Room Air PG Care Time/CCT Total # of Minutes Spent Total Time Spent with Patient: Total time spent is greater than 50% in coordination of care (as documented) at patient's floor/unit and/or counseling patient: Coding Level of Care Code 21597 SUB INP/OBS CARE 2/35MIN Diagnoses Hyperosmolar hyperglycemic state (HHS) E11.00 Acute hypernatremia E87.0 UTI (urinary tract infection) N39.0 Abnormal ECG R94.31 Periostitis of ankle M86.9 Silent aspiration T17.900A Paroxysmal atrial fibrillation I48.0 Hypertension I10 Dyslipidemia E78.5 MGUS (monoclonal gammopathy of unknown significance) D47.2
[2022-08-26] MEDS: MEROPENEM 500 MG in SYRINGE 0 ML IV SCH ×3 (03:28→19:19)
[2022-08-26 06:47] LABS: Hematocrit (blood only) 31.4 % (42.0-52.0); Hemoglobin 10.8 g/dl (14.0-18.0); Mean Corpuscular Hemoglobin 32.7 pg (25.0-34.0); Mean Corpuscular Hgb Conc 34.4 g/dL (32.0-36.0); Mean Corpuscular Volume 95.2 fL (80.0-100.0); Mean Platelet Volume 11.6 fL (9.4-12.4); Platelet Count 131 K/uL (130-400); RDW Coefficient of Variation 14.6 % (11.5-14.5); White Blood Count 6.88 K/ul (4.8-10.8)
[2022-08-26 06:56] LABS: Albumin Level 2.8 gm/dl (3.4-5.0); BUN Creatinine Ratio 44.5 (10-20); Calcium 8.5 mg/dl (8.6-10.3); Creatinine Clr Calc Pharmacy 30.7 ml/min; Est GFR (African American) 43.2 ml/min; Est GFR (Non-African American) 37.3 ml/min; Phosphorus 3.6 mg/dl (2.5-4.9); Potassium 3.4 mmol/L (3.5-5.1)
[2022-08-26] MEDS: INSULIN ASPART PER UNIT CHARGE SC SCH ×4 (08:59→20:45)
[2022-08-26] MEDS ORDERED: LANTUS PER UNIT CHARGE SC SCH (09:00)
[2022-08-26] MEDS: SODIUM BICARBONATE 650 MG TAB PO SCH ×2 (09:01→20:18)
[2022-08-26] MEDS: APIXABAN 2.5 MG TAB PO SCH ×2 (09:01→20:18)
[2022-08-26] MEDS: FAMOTIDINE 20 MG TAB PO SCH (09:01)
[2022-08-26] MEDS: CYANOCOBALAMIN (B-12) 500 MCG TABLET PO SCH (09:03)
[2022-08-26] MEDS: DEXTROSE 5% 1,000 ML IV SCH (12:25)
--- NOTE | 2022-08-26 14:33 | Pharmacy Report ---
Pharmacy Glycemic Short Note 2 - Date of Service August 26, 2022 - Glycemic Short BSG Results (Last 24 hours): 08/25/22 08/25/22 08/26/22 16:31 20:09 05:57 Glucose 105 H POC Glucose 96 211 H 08/26/22 08/26/22 07:39 11:41 Glucose POC Glucose 124 H 155 H OUTPATIENT ANTIDIABETIC REGIMEN: * Farxiga 5 mg PO daily * Glipizide ER 5 mg PO daily * Metformin ER 500 mg PO BID * Tradjenta 5 mg PO daily HbA1c = 9.4% on 07/23/22 ASSESSMENT: 08/26/22: * Patient received total of 21 units of insulin yesterday, of which 12 units were basal insulin * Fasting BSG 124 mg/dL - continue with same basal, will spit dose equally BID * Loosened CR at breakfast as concerns for BSG trending down at lunch 08/24/22: * BSGs noticeably improved yesterday, basal insulin reduced in light of fasting BSG of 94 mg/dL and patient not eating * Received 11 units of insulin yesterday (9 units of basal and 2 units of bolus) * D5W @80 mL/hr ordered by nephrology today 08/22/22: * 86 y/o M admitted for HHS last night. IV fluids and insulin drip was started on him yesterday. * BSGs trended down overnight and insulin drip rate was turned off this morning. * Patient is currently getting Dextrose in IV fluids running at 150 ml/hr which will contribute to elevated BSGs. Per Nephro, continue Dextrose. * He is also ordered a diet. * Patient is known to glycemic service from past admissions. Basal insulin 12 units once daily has worked well, therefore will continue the same. * Novolog parameters chosen based on previous admissions also. PLAN FOR INPATIENT GLYCEMIC CONTROL: * Hold outpatient oral diabetes medications * Basal insulin * Lantus 6 units bid * Bolus insulin * NovoLog per scale ACHS or Q6hrs while NPO * Goal Range: Low 110 mg/dL - High 150 mg/dL * Correction Factor: 45 mg/dL/unit * Nutritional / Prandial insulin per carb ratio of 1 unit per 15 grams CHO consumed
--- NOTE | 2022-08-26 15:45 | Nephrology Progress Note ---
Date of Service August 26, 2022 Assessment & Plan (1) Acute hypernatremia: (2) Failure to thrive: (3) Stage 3b chronic kidney disease: (4) Acute renal failure: Plan Mr. Espinosa is an 86 year old male admitted to the hospital with generalized weakness and hyperglycemia. On admission he was found to be hyponatremic, serum sodium was 158, S5 44, creatinine was 1.9 and urinalysis is positive for urinary tract infection. He was started on D5W with improvement in serum sodium to 145 yesterday and IV fluid changed to normal saline yesterday and sodium staying around 145. he was started on meropenem and daptomycin pending blood and urine culture. Has history of stage IIIB CKD, b/l Cr 1.7-1.8 w/ EGFR 32 cc/min. recent CT abdomen pelvis was negative for postrenal obstruction. He was found to have moderate degree proteinuria, UIEP and Sultana/Lambda free light chain ratio have been positive for monoclonal protein.Has h/o atrial fibrillation (Eliquis), AODM, HTN, MGUS, dementia and urothelial carcinoma of the bladder s/p R hemicolectomy/cystectomy/prostatectomy with RLQ ileal conduit and urostomy and recurrent UTI and dehydration resulting in TRAVIS/CKD. he also has history of aspiration risk and has been on thick liquids. Was recently seen as a new patient at [facility] however considering his multiple comorbidities and difficulty with ambulation family just wanted to follow with his PCP. Overall clinically stable, blood pressure, volume status acceptable. renal function improved, close to baseline. Bicarbonate remains low but serum sodium normalized. -- decrease D5W to 60 mL/hour, encouraged po intake. -- increase sodium bicarbonate 650 mg 2 tab twice a day. -- monitor renal function and electrolyte, intake and output -- if sodium stays normal suggest discontinue D5W. If bicarbonate improves slowly decrease sodium bicarbonate dose to 1 tablet twice a day and then adjust as needed. Will sign off. thank you for the consultation. Admission and Anticipated Discharge Date Admission Date: August 21, 2022 Jazmine Lim was seen and evaluated this morning. He reports feeling well and denies any specific symptom. No shortness of breath or chest pain. Decent appetite and had breakfast this morning. Continues on D5W. BP acceptable. Review of Systems Review of Systems: Detail ROS was unremarkable. Physical Exam Constitutional: WD/WN, vitals as above + frail appearing; no acute distress Eyes: + anicteric sclerae Neck: normal visual inspection Respiratory: no respiratory distress and no cough Auscultation: + diminished lung sounds Cardiovascular: RRR, no murmur, no edema Skin: no rashes, warm and dry Neurologic: no focal motor deficits Psychiatric: Orientation: alert and oriented x 3 Results & Data Vital Signs (Past 12 Hours) Vital Signs Temp Pulse Pulse Resp BP Pulse Ox O2 Del Method 08/26/22 08:02 36.5 C 83 20 127/74 95 Room Air 08/26/22 07:00 84 PG Care Time/CCT Total # of Minutes Spent Total Time Spent with Patient: Total time spent is greater than 50% in coordination of care (as documented) at patient's floor/unit and/or counseling patient: Coding Level of Care Code 18015 SUB INP/OBS CARE 2/35MIN Diagnoses Acute hypernatremia E87.0 Failure to thrive Stage 3b chronic kidney disease N18.32 Acute renal failure N17.9
--- NOTE | 2022-08-26 16:30 | Infectious Disease Consult ---
Date of Consultation August 26, 2022 Assessment & Plan (1) Hyperosmolar hyperglycemic state (HHS): (2) Stage 3b chronic kidney disease: (3) Periostitis of ankle: Plan This is an 86-year old male with pmh of ckd, recurrent utis,urothelial carcinoma of the bladder status post urostomy, colon cancer s/p colectomy, diabetes, atrial fibrillation on Eliquis who presents to the with increased generalized weakness. He is a poor historian and most history obtained per chart review. On admission he is hemodynamically stable. Labs noted for a Glucose of 544, wbc 3.4, Hg 13.3, HCT 40.5, AG 15, BUn 105, cr 1.8. UA noted for 10-30 WBC with 20- 30 epithelial cells. UC with multiple organisms not identified. BC with no growth to date. CXR shows no acute findings. He has changes c/w prior prior granulomatous disease. He has a h/o UTi with Pseudomonas aeruginosa, Klebsiella pneumoniae, E faecalis. He is being managed for hyperosmolar hyperglycemic state. He was started empirically on Meropenem and Daptomycin for possible UTI thought to have triggered this. ID consulted for UTI. He denies urinary symptoms,abdominal or back pain, nausea, vomiting or chills. He is not a reliable historian but tells me he came in with Left Leg pain and points to his left ankle wound. He has chronic knee pain, but states his knees are not bothering him at this time. Micro BC 08/21 NGTD UC 08/21 three types of organisms present, all high counts. ABX Dapto 08/21- ongoing Meropenem08/21- ongoing 1. Hyperosmolar hyperglycemic state 2. Painful Left lateral ankle wound/ infection/ history of ankle periostitis 3. left greatot foot chronic appearing wound 4. Asymptomatic pyuria: denies urine symptoms ( poor historian) 5. History of PSA ( S ceftaz)and E faecalis and Klebsiella in urine 6. RLQ ileal conduit and urostomy 7. History BL knee pain sp injections. He denies urinary symptoms, but is a poor historian, UC with mixed org. The sample had many epithelial cells and possibly contaminated. A repeat UC may be sterile as he has already received 6 days of abx. He is on broad abx with Meropenem/vanco. He has no history of ESBL org. He has likely received enough abx for presumed UTI with out bacteremia He complains of increasing Left ankle pain at site of wound. The area is warm and tender: Concern for acute on chronic infection ankle site infection Recommendations: Consider repeat UC. Prior sample on08/21 with multiple species Check Left ankle xray to evaluate skin ulcer, evaluate for osteo, if continued pain may need MRI. Switched meropenem to Ceftazidime 2 g iv q12 ( will cover prior PSA strains and Klebsiella in urine cx) Continue Daptomycin for skin coverage at ankle pending Bc finalization and ankle x ray Thank you for this consultation. ID will continue to follow. Daria Rand MD, MPH Infectious Disease [facility], [facility] Call [phone] with questions Consultation Information Consultation was provided via telemedicine using two-way real-time interactive telecommunication between the patient and the telemedicine provider. For the duration of the visit, the provider was performing the assessment from a different facility than the patient. This includesuse of bluetooth stethoscope forauscultationperformed by the telepresenter that the telemedicine provider can hear if described in the physical exam. Licensed Reactor Operator contact information: Please call [facility] Center [phone]. (Phone Number For Physician Use Only) After establishing a telemedicine visit, patient was: Patient was verified with two unique identifiers, Patient/authorized rep acknowledged consent and understanding and Gave permission to continue telehealth session Time Spent with Patient: Initial => 75 min History of Present Illness Reason for Consultation: Uti Requesting Physician: Raphael Douglas Attending Physician: Raphael Douglas History of Present Illness This is an 86-year old male with pmh of ckd, recurrent utis,urothelial carcinoma of the bladder status post urostomy, colon cancer s/p colectomy, diabetes, atrial fibrillation on Eliquis who presents to the with increased generalized weakness. He is a poor historian and most history obtained per chart review. On admission he is hemodynamically stable. Labs noted for a Glucose of 544, wbc 3.4, Hg 13.3, HCT 40.5, AG 15, BUn 105, cr 1.8. UA noted for 10-30 WBC with 20- 30 epithelial cells. UC with multiple organisms not identified. BC with no growth to date. CXR shows no acute findings. He has changes c/w prior prior granulomatous disease. He has a h/o UTi with Pseudomonas aeruginosa, Klebsiella pneumoniae, E faecalis. He is being managed for hyperosmolar hyperglycemic state. He was started empirically on Meropenem and Daptomycin for possible UTI thought to have triggered this. ID consulted for UTI. He denies urinary symptoms,abdominal or back pain, nausea, vomiting or chills. He is not a reliable historian but tells me he came in with Left Leg pain and points to his left ankle wound. He has chronic knee pain, but states his knees are not bothering him at this time. Allergies Allergy/AdvReac Type Severity Reaction Status Date / Time No Known Allergies Allergy Verified 08/21/22 16:46 Home Medications Medication Instructions Recorded Confirmed Type coenzyme Q10 100 mg capsule (Co 100 mg PO QAM #30 caps 10/19/18 08/21/22 History Q-10) [id number] 5 mg-zeaxanth 1 cap PO QAM 10/19/18 08/21/22 History 1 mg-bilberry 7.5 mg-herbal capsule ([employer] Health Formula) acetaminophen 500 mg capsule 500 mg PO Q6H PRN Pain 12/10/20 08/21/22 History ascorbate calcium (vitamin C) 500 500 mg PO DAILY 12/10/20 08/21/22 History mg tablet apixaban 2.5 mg tablet (Eliquis) 2.5 mg PO BID #180 tabs 02/13/22 08/21/22 Rx atorvastatin 40 mg tablet (Lipitor) 40 mg PO QAM #90 tabs 03/19/22 08/21/22 Rx coffee extract 50 mg-phosphatidyl 1 tab PO HS 04/06/22 08/21/22 History serine 50 mg chewable tablet (Neuriva Original) zinc acetate 50 mg (zinc) capsule 50 mg PO DAILY 04/06/22 08/21/22 History linagliptin 5 mg tablet (Tradjenta) 5 mg PO DAILY #90 tabs 04/29/22 08/21/22 Rx polyethylene glycol 3350 17 gram 17 g PO DAILY PRN constipation #30 04/29/22 08/21/22 Rx oral powder packet (Miralax) ea famotidine 20 mg tablet 20 mg PO QAM #90 tabs 05/07/22 08/21/22 Rx tramadol 50 mg tablet 50 mg PO Q4H PRN severe pain #10 04/07/23 06/15/23 Rx tabs blood-glucose meter #1 ea 07/23/22 07/23/22 Rx dapagliflozin propanediol 5 mg 5 mg PO DAILY #90 tabs 07/24/22 08/21/22 Rx tablet (Farxiga) blood sugar diagnostic #100 ea 07/30/22 Rx lancets 30 gauge (OneTouch Delica #100 ea 08/13/22 Rx Plus Lancet) cyanocobalamin (vitamin B-12) 2,500 mcg sublingual QAM 08/21/22 08/21/22 History 2,500 mcg sublingual tablet (Vitamin B-12) Patient History Medical History Allergic rhinitis AMD (age related macular degeneration) Anemia Chronic osteoarthritis Diabetes mellitus with kidney complication Dyslipidemia Hypertension MGUS (monoclonal gammopathy of unknown significance) Osteopenia Peripheral neuropathy Premature ventricular contractions Proteinuria Stage 3b chronic kidney disease Stage III chronic kidney disease Thrombocytopenia 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 Alvarez 09/27/[address] History of ankle surgery [address]. Fuchs - 06/2022 History of total cystectomy (05/2010) cystectomy w/ creation of ileal conduit (secondary to bladder caner) S/P Mohs surgery for basal cell carcinoma (04/2020) Family History Father Myocardial infarction Denies family history of Ovarian cancer Prostate cancer Breast cancer Colorectal cancer Social History Smoking Status: Never smoker Age Started Using Tobacco: 16; Age Quit Using Tobacco: 22; Second Hand Exposure: No; Do You Dip or Chew Tobacco: No; Hx Alcohol Use: No Hx Substance Use: No Preferred Language: Azeri Communication Ability: Effective Visual Impairment: No Limitations Hearing Ability: Hard of Hearing Knotter Required: No Beliefs That Will Affect Care: None marital status: Current Living Situation: Spouse Current Living Situation Comment: ALONE WITH current occupational status: retired How many Children do You have: 3 Other Information That Helps Us Care for You: No Feels Safe at Home: Yes Safety Concerns: Feels Safe At This Time Childhood Exposure to Second-Hand Smoke: Yes Diet: regular Diet Comment: regular caffeine: No during the past year weight has: remained stable Dental Care, Regularly: Yes Physical Activity Frequency: Daily Seatbelt Use: always Sunscreen Use: Yes Assistive Devices: Hospital Bed and Walker Review of System A 10 point ROS obtained. Pertinent positives as per HPI Physical Exam Constitutional: NAD, alert, poor historian,confused at times Eyes: Anicteric sclera Neck: supple Respiratory: No increased work of breathing Gastrointestinal (Abdomen): Soft, not tender or distended. + ileostomy with yellow urine Musculoskeletal: Left Lateral ankle ulcer with ++TTP and surrounding erythema and warmth. Left medial great toe chronic appearing ulcer Skin: Right renan bruising Neurologic: AAO*2 Psychiatric: Cooperative Results & Data Vital Signs (Past 12 Hours) Vital Signs Temp Pulse Pulse Resp BP Pulse Ox O2 Del Method 08/26/22 15:43 36.8 C 86 18 109/66 97 Room Air 08/26/22 08:02 36.5 C 83 20 127/74 95 Room Air 08/26/22 07:00 84 Laboratory Results 08/26/22 08/26/22 08/26/22 16:46 11:41 07:39 WBC RBC Hgb Hct MCV MCH MCHC RDW Std Deviation RDW Coeff of Tasneem Plt Count MPV Sodium Potassium Chloride Carbon Dioxide Anion Gap BUN Creatinine Est Cr Clr Drug Dosing Est GFR ( Amer) Est GFR (Non-Af Amer) BUN/Creatinine Ratio Glucose POC Glucose 74 155 H 124 H Calcium Phosphorus Albumin 08/26/22 08/26/22 08/25/22 05:57 05:57 20:09 WBC 6.88 RBC 3.30 L Hgb 10.8 L Hct 31.4 L MCV 95.2 MCH 32.7 MCHC 34.4 RDW Std Deviation 51.0 H RDW Coeff of Tasneem 14.6 H Plt Count 131 MPV 11.6 Sodium 138 Potassium 3.4 L Chloride 116 H Carbon Dioxide 16 L Anion Gap 6 BUN 73 H Creatinine 1.64 H Est Cr Clr Drug Dosing 30.7 Est GFR ( Amer) 43.2 Est GFR (Non-Af Amer) 37.3 BUN/Creatinine Ratio 44.5 H Glucose 105 H POC Glucose 211 H Calcium 8.5 L Phosphorus 3.6 Albumin 2.8 L Diagnostic Findings Microbiology 08/21/22 19:17 Blood Aerobic Blood Culture - Preliminary No growth in Aerobic bottle after 48 hours. 08/21/22 19:17 Blood Anaerobic Blood Culture - Final 08/21/22 19:26 Blood Aerobic Blood Culture - Preliminary No growth in Aerobic bottle after 48 hours. 08/21/22 19:26 Blood Anaerobic Blood Culture - Final 08/21/22 Unknown Urine,Clean Catch Urine Culture - Final Three types of organisms present, all high counts. Repeat collection recommended. No further identifications or sensitivities to follow. Medications Administered Home Medications Medication Instructions Recorded Confirmed Last Taken coenzyme Q10 100 mg capsule (Co 100 mg PO QAM #30 caps 10/19/18 08/21/22 08/21/22 Q-10) [id number]-dhs-iknypm 5 mg-zeaxanth 1 cap PO QAM 10/19/18 08/21/22 08/21/22 1 mg-bilberry 7.5 mg-herbal capsule ([employer] Health Formula) acetaminophen 500 mg capsule 500 mg PO Q6H PRN Pain 12/10/20 08/21/22 04/05/22 ascorbate calcium (vitamin C) 500 500 mg PO DAILY 12/10/20 08/21/22 08/21/22 mg tablet apixaban 2.5 mg tablet (Eliquis) 2.5 mg PO BID #180 tabs 02/13/22 08/21/22 08/21/22 08:00 atorvastatin 40 mg tablet (Lipitor) 40 mg PO QAM #90 tabs 03/19/22 08/21/22 08/21/22 coffee extract 50 mg-phosphatidyl 1 tab PO HS 04/06/22 08/21/22 08/20/22 serine 50 mg chewable tablet (Neuriva Original) zinc acetate 50 mg (zinc) capsule 50 mg PO DAILY 04/06/22 08/21/22 08/21/22 linagliptin 5 mg tablet (Tradjenta) 5 mg PO DAILY #90 tabs 04/29/22 08/21/22 08/21/22 polyethylene glycol 3350 17 gram 17 g PO DAILY PRN constipation #30 04/29/22 08/21/22 Unknown oral powder packet (Miralax) ea famotidine 20 mg tablet 20 mg PO QAM #90 tabs 05/07/22 08/21/22 08/21/22 tramadol 50 mg tablet 50 mg PO Q4H PRN severe pain #10 06/13/22 08/21/22 Unknown tabs blood-glucose meter #1 ea 07/23/22 07/23/22 Unknown dapagliflozin propanediol 5 mg 5 mg PO DAILY #90 tabs 07/24/22 08/21/22 08/21/22 tablet (Farxiga) blood sugar diagnostic #100 ea 07/30/22 Unknown lancets 30 gauge (OneTouch Delica #100 ea 08/13/22 Unknown Plus Lancet) cyanocobalamin (vitamin B-12) 2,500 mcg sublingual QAM 08/21/22 08/21/22 08/21/22 2,500 mcg sublingual tablet (Vitamin B-12) Active Medications Generic Name Dose Route Start Last Admin Trade Name Freq PRN Reason Stop Dose Admin Apixaban 2.5 mg 08/21/22 21:00 08/26/22 09:01 Apixaban 2.5 Mg Tab PO 09/20/22 20:59 2.5 mg BID BERE Administration Cyanocobalamin 2,500 mcg 08/22/22 09:00 08/26/22 09:03 Cyanocobalamin (B-12) 500 Mcg Tablet PO 09/21/22 08:59 2,500 mcg QAM BERE Administration Famotidine 20 mg 08/22/22 09:00 08/26/22 09:01 Famotidine 20 Mg Tab PO 09/21/22 08:59 20 mg QAM BERE Administration Daptomycin 275 mg/ Syringe 5.5 mls @ 3.25 mls/min 08/21/22 20:00 08/25/22 19:49 IV 08/31/22 19:59 3.25 mls/min Q48H BERE Administration Protocol Meropenem 500 mg/ Syringe 10 mls @ 2 mls/min 08/21/22 20:00 08/26/22 12:24 IV 08/31/22 19:59 2 mls/min Q8H BERE Administration Protocol Dextrose 1,000 mls @ 60 mls/hr 08/24/22 10:15 08/26/22 12:25 D5w IV 09/23/22 10:14 60 mls/hr .[id number] BERE Administration Insulin Aspart 0 units 08/26/22 16:30 08/26/22 17:21 Insulin Aspart Per Unit Charge SC 09/25/22 16:29 Not Given ACHS EBRE Sodium Bicarbonate 1,300 mg 08/26/22 09:00 08/26/22 09:01 Sodium Bicarbonate 650 Mg Tab PO 09/25/22 08:59 1,300 mg BID BERE Administration
[2022-08-26] MEDS: LANTUS PER UNIT CHARGE SC SCH (20:45)
[2022-08-26 22:34] LABS: Appearance Urine Cloudy (Clear); Bacteria Urine Automated Negative (Negative); Bilirubin Urine Negative (Negative); Blood Urine Trace (Negative); Color Urine Yellow; Epithelial Cell Urine Auto >30 /lpf (0-5); Glucose Urine UA 1+ (Negative); Ketones Urine Negative (Negative); Leukocyte Esterase Urine Trace (Negative); Nitrite Urine Negative (Negative); Protein Urine Negative (Negative); RBC Urine Automated 0-4 /hpf (0-4); Specific Gravity Urine 1.007 (1.000-1.030); Urobilinogen Urine Negative (Negative); pH Urine 6.5 (4.5-7.5)
--- NOTE | 2022-08-26 23:43 | Hospitalist Progress Note ---
Date of Service August 26, 2022 Assessment & Plan (1) Hyperosmolar hyperglycemic state (HHS): Plan: -Admit to the PCU on tele -Currently stable -Patient noted to have significant hyperglycemia of 544, no ketones in his urine, VBG with pH of 7.27 -AG WNL, bicarb at 15 -Likely caused by acute UTI and only being on oral antihyperglycemics -Lactate ordered on admission is in process -Potassium at 3.6, Will give 40 meq PO KCL prior to starting Insulin drip -Start insulin drip with [facility] protocol -ED ordered Normosol at 250 mL/hr, will be started soon -Confirmed with nursing staff and communication placed to let clinical education manager provider know when his BSG falls below 300 so Normosol can be changed to D5w -Hold oral antihyperglycemics -Will repeat BMP, Mag, and VBG in 3 hours to ensure he is correcting adequately -Monitor intake and output q6h -BL SCD's and home Eliquis for DVT PPX -AM CBC, BMP, mag, PT/INR -HH and DMII diet, minced/moist with honey thick liquids -PT/OT consults ordered as patient may need home health On 08/23 consulted nephro: appears to have resolved Now on half normal saline, will monitor, patient may need weekly labs at home to ensure patient is not becoming dehydrated. 08/24 Sodium slightly worse, will reinstitute D5W 08/25-08/26 BIcarb appears low, sodium improved. appreciate input from nephrology cut back rate of D5W. anticipate discharge tomorrow (2) Acute hypernatremia: Plan: -Corrected sodium of 158 in the ED -Due to severe dehydration with HHS and high Urostomy output -Continue IV hydration -sodium improved. (3) UTI (urinary tract infection): Plan: -Patient noted to have UA indicative of acute UTI today -Has previously grown Enterococcus Faecalis, Pseudomonas, and Klebsella -After review of previous urine cultures/sensitivities and discussions with Pharmacy, will start the patient on Daptomycin and Meropenem -Will hold oral antihyperglycemics and statin while on Dapto -Follow urine and blood cultures -Urostomy management ordered ID consult placed. (4) Abnormal ECG: Plan: -ECG in the ED noted to have ST depressions in the inferolateral leads -This was when the patient was in afib RVR -The patient has been without chest pain and hemodynamically stable -Likely due to demand from acute illness and severe dehydration on arrival -Will continue to monitor on tele, will order repeat ECG for the am (5) Periostitis of ankle: Plan: -S/P debridement last admission by Orthopedics -Coupled outpatient course of Cefepime in rehab -Appears to be healing well, no acute signs of infection -Wound care nurse consult placed (6) Silent aspiration: Plan: -Long history -Stable on RA today with stable chronic findings on CXR today -Will continue with minced/moist diet with honey thick liquids (7) Paroxysmal atrial fibrillation: Plan: -Initially noted to be in afib RVR with HR in the low 100's on arrival -Currently stable -Continue IV hydration -Continue Eliquis -Monitor on tele (8) Hypertension: Plan: -Currently stable -Not on antihypertensives, continue to monitor (9) Dyslipidemia: Plan: -Hold statin while on Daptomycin (10) MGUS (monoclonal gammopathy of unknown significance): Plan: -Has been monitoring outpatient -WBC currently at 3.44, likely due to acute infection -Monitor daily CBC with diff for now Admission and Anticipated Discharge Date Admission Date: August 21, 2022 Subjective Patient reports no new symptoms. Review of Systems Review of Systems: All systems reviewed & are unremarkable except as noted in HPI & below Physical Exam Physical Exam: General: In no acute distress, stated age, ill appearing but non-toxic HEENT: Normocephalic, atraumatic Chest/Pulm: No respiratory distress, symmetrical chest expansion, clear breath sounds throughout Cardiac: irregular rate and rhythm, no murmurs noted Results & Data Results & Data Vital Signs (Past 12 Hours) Vital Signs Temp Pulse Resp BP Pulse Ox O2 Del Method 08/26/22 22:40 37.1 C 82 18 122/68 95 Room Air 08/26/22 19:32 36.5 C 89 18 122/76 100 Room Air 08/26/22 15:43 36.8 C 86 18 109/66 97 Room Air PG Care Time/CCT Total # of Minutes Spent Total Time Spent with Patient: Total time spent is greater than 50% in coordination of care (as documented) at patient's floor/unit and/or counseling patient: Coding Level of Care Code 21265 SUB INP/OBS CARE 2/35MIN Diagnoses Hyperosmolar hyperglycemic state (HHS) E11.00 Acute hypernatremia E87.0 UTI (urinary tract infection) N39.0 Abnormal ECG R94.31 Periostitis of ankle M86.9 Silent aspiration T17.900A Paroxysmal atrial fibrillation I48.0 Hypertension I10 Dyslipidemia E78.5 MGUS (monoclonal gammopathy of unknown significance) D47.2
[2022-08-27] MEDS: MEROPENEM 500 MG in SYRINGE 0 ML IV SCH (04:41)
[2022-08-27] MEDS: DEXTROSE 5% 1,000 ML IV SCH ×2 (05:37→23:38)
[2022-08-27 07:10] LABS: Albumin Level 2.7 gm/dl (3.4-5.0); BUN Creatinine Ratio 45.2 (10-20); Calcium 8.5 mg/dl (8.6-10.3); Creatinine Clr Calc Pharmacy 30.7 ml/min; Est GFR (African American) 42.6 ml/min; Est GFR (Non-African American) 36.8 ml/min; Phosphorus 3.9 mg/dl (2.5-4.9); Potassium 3.7 mmol/L (3.5-5.1)
[2022-08-27] MEDS: INSULIN ASPART PER UNIT CHARGE SC SCH ×4 (08:17→20:56)
[2022-08-27] MEDS: LANTUS PER UNIT CHARGE SC SCH ×2 (08:17→20:56)
[2022-08-27] MEDS: FAMOTIDINE 20 MG TAB PO SCH (08:21)
[2022-08-27] MEDS: SODIUM BICARBONATE 650 MG TAB PO SCH ×2 (08:21→20:58)
[2022-08-27] MEDS: CYANOCOBALAMIN (B-12) 500 MCG TABLET PO SCH (08:21)
[2022-08-27] MEDS: APIXABAN 2.5 MG TAB PO SCH ×2 (08:21→20:57)
[2022-08-27] MEDS ORDERED: [UNRECOGNIZED DRUG - OTHER] IV SCH (09:00)
[2022-08-27] MEDS ORDERED: CEFTAZIDIME IV SCH (09:00)
[2022-08-27] MEDS ORDERED: DEXTROSE IV SCH (09:00)
--- NOTE | 2022-08-27 13:44 | XRay Report ---
XR ankle LT min 3V routine HISTORY: 86 years-old Male left ankle wound/ possible osteo chronic left ankle pain with possible os teomyelitis COMPARISON: MRI 05/30/2022, radiographs 05/06/2022. TECHNIQUE: 3 views of the left ankle FINDINGS: Demineralized appearance of the bones. Moderate osteoarthritis of the ankle. Spurring of the calcaneu s. Mild circumferential soft tissue swelling. Arterial calcifications. No acute fracture, or dislocat ion. There is mild cortical irregularity and lucency involving the distal fibular lateral cortex seen best on the oblique image, new from prior. IMPRESSION: Mild lateral cortical irregularity of the distal fibula suspicious for osteomyelitis. ACT 112: Negative or not required by law. The above report was generated using voice recognition software. It may contain grammatical, syntax o r spelling errors. Electronically signed by: Parish Robles M.D. 08/27/2022 1:43 PM
--- NOTE | 2022-08-27 13:48 | Orthopedic Consultation ---
Date of Consultation August 26, 2022 Assessment & Plan (1) Periostitis of ankle: 1. Chronic left lateral ankle ulceration overlying the lateral malleolus 1.5 cm x 0.4 cm x 1.0 cm extending to the layer of fat and periosteum. Previous surgical irrigation and debridement June 2022. 2. Diabetic ulceration left lateral ankle. 3. Multiple medical comorbidities. Features suggesting chronic periostitis at minimum left lateral ankle consistent with previous surgical treatment. 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 To confirm or deny progression of disease would recommend an MRI with contrast ideally, however, understanding that the patient has CKD stage IIIb he may not be a candidate for such a study and would have to instead choose a regular MRI without contrast to be compared with the previous MRI performed in June. In the interim, recommend continued daily dry dressing changes over Adaptic or iodoform gauze and continuation of antibiotic coverage for a period of at least 7 to 10 days. Thank you for the opportunity to consult in the care of this patient. 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 Douglas and Dr. Graves regarding the chronic ulceration on his left lateral ankle which has been present for several months. The patient presented to the hospital due to weakness, lethargy and an inability to keep up with hydration. He was also found to have a urinary tract infection. I last seen the patient in my office several weeks prior and he was showing steady improvement related to the ulceration on the left lateral ankle. When questioned about the state of his left ankle, the patient stated that it was feeling the way that it had over the last several weeks. His had been doing daily dressing changes as I had directed her to do prior to admission. Attending Physician: Raphael Douglas Allergies Allergy/AdvReac Type Severity Reaction Status Date / Time No Known Allergies Allergy Verified 08/21/22 16:46 Home Medications Medication Instructions Recorded Confirmed Type coenzyme Q10 100 mg capsule (Co 100 mg PO QAM #30 caps 10/19/18 08/21/22 History Q-10) [id number] 5 mg-zeaxanth 1 cap PO QAM 10/19/18 08/21/22 History 1 mg-bilberry 7.5 mg-herbal capsule (Macular Health Formula) acetaminophen 500 mg capsule 500 mg PO Q6H PRN Pain 12/10/20 08/21/22 History ascorbate calcium (vitamin C) 500 500 mg PO DAILY 12/10/20 08/21/22 History mg tablet apixaban 2.5 mg tablet (Eliquis) 2.5 mg PO BID #180 tabs 02/13/22 08/21/22 Rx atorvastatin 40 mg tablet (Lipitor) 40 mg PO QAM #90 tabs 03/19/22 08/21/22 Rx coffee extract 50 mg-phosphatidyl 1 tab PO HS 04/06/22 08/21/22 History serine 50 mg chewable tablet (Neuriva Original) zinc acetate 50 mg (zinc) capsule 50 mg PO DAILY 04/06/22 08/21/22 History linagliptin 5 mg tablet (Tradjenta) 5 mg PO DAILY #90 tabs 04/29/22 08/21/22 Rx polyethylene glycol 3350 17 gram 17 g PO DAILY PRN constipation #30 04/29/22 08/21/22 Rx oral powder packet (Miralax) ea famotidine 20 mg tablet 20 mg PO QAM #90 tabs 05/07/22 08/21/22 Rx tramadol 50 mg tablet 50 mg PO Q4H PRN severe pain #10 06/13/22 08/21/22 Rx tabs blood-glucose meter #1 ea 07/23/22 07/23/22 Rx dapagliflozin propanediol 5 mg 5 mg PO DAILY #90 tabs 07/24/22 08/21/22 Rx tablet (Farxiga) blood sugar diagnostic #100 ea 07/30/22 Rx lancets 30 gauge (OneTouch Delica #100 ea 08/13/22 Rx Plus Lancet) cyanocobalamin (vitamin B-12) 2,500 mcg sublingual QAM 08/21/22 08/21/22 History 2,500 mcg sublingual tablet (Vitamin B-12) Patient History Medical History Allergic rhinitis AMD (age related macular degeneration) Anemia Chronic osteoarthritis Diabetes mellitus with kidney complication Dyslipidemia Hypertension MGUS (monoclonal gammopathy of unknown significance) Osteopenia Peripheral neuropathy Premature ventricular contractions Proteinuria Stage 3b chronic kidney disease Stage III chronic kidney disease Thrombocytopenia 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 Alvarez 09/27/20 History of ankle surgery Dr. Fuchs - 06/2022 History of total cystectomy (05/2010) cystectomy w/ creation of ileal conduit (secondary to bladder caner) S/P Mohs surgery for basal cell carcinoma (04/2020) Family History Father Myocardial infarction Denies family history of Ovarian cancer Prostate cancer Breast cancer Colorectal cancer Social History Smoking Status: Never smoker Age Started Using Tobacco: 16; Age Quit Using Tobacco: 22; Second Hand Exposure: No; Do You Dip or Chew Tobacco: No; Hx Alcohol Use: No Hx Substance Use: No Preferred Language: Andorran Communication Ability: Effective Visual Impairment: No Limitations Hearing Ability: Hard of Hearing 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 Beliefs That Will Affect Care: None marital status: Current Living Situation: Spouse Current Living Situation Comment: ALONE WITH current occupational status: retired How many Children do You have: 3 Other Information That Helps Us Care for You: No Feels Safe at Home: Yes Safety Concerns: Feels Safe At This Time Childhood Exposure to Second-Hand Smoke: Yes Diet: regular Diet Comment: regular caffeine: No during the past year weight has: remained stable Dental Care, Regularly: Yes Physical Activity Frequency: Daily Seatbelt Use: always Sunscreen Use: Yes Assistive Devices: Hospital Bed and Walker Physical Exam Physical Exam: Patient laying awake and somewhat alert while watching television in his hospital bed. No acute distress. Constitutional: WD/WN, vitals as above Neck: trachea midline, no thyromegaly Respiratory: No evidence of labored breathing. Musculoskeletal: Left ankle reveals a moistened ulceration left lateral malleolus measuring 1.5 cm x 1.0 cm x 0.4 cm. There is some surrounding periwound slough without evidence of purulence or abscess. There is a 1 cm margin around the ulcer of mild erythema. There is mild tenderness surrounding the ulcer however there is no evidence of streaking, cords or lymphangitis of the left lower leg. Pedal pulses palpable bilateral feet 2/4 DP/PT. Hair growth is scant bilateral. Skin is atrophic bilateral lower extremities. No other active ulcerations noted. No calf tenderness. Homans' sign negative bilateral. Achilles stiffness bilateral. Skin: Warm, dry and somewhat scaly, intact with the exception of the 1.5 cm x 1.0 cm x 0.4 cm macerated ulceration left lateral malleolus. Neurologic: Cranial nerves II through XII are grossly intact. Features consistent with dementia. Lymphatic: no cervical or axillary lymphadenopathy Results & Data Vital Signs (Past 12 Hours) Vital Signs Temp Pulse Resp BP Pulse Ox O2 Del Method 08/27/22 10:41 36.3 C L 80 19 126/79 Room Air 08/27/22 08:00 Room Air 08/27/22 03:36 36.5 C 74 16 107/64 98 Room Air Laboratory Results Reviewed. Diagnostic Findings Reviewed.
[2022-08-27 14:33] LABS: Basophils # (auto) 0.02 K/uL (0-0.2); Basophils % (auto) 0.3 %; Eosinophils # (auto) 0.19 K/uL (0-0.50); Eosinophils % (auto) 2.4 %; Hematocrit (blood only) 31.4 % (42.0-52.0); Hemoglobin 10.8 g/dl (14.0-18.0); Immature Granulocytes # (auto) 0.04 K/uL (0.01-0.20); Immature Granulocytes % (auto) 0.5 %; Lymphocytes # (auto) 1.09 K/uL (1.2-3.4); Lymphocytes % (auto) 13.7 %; Mean Corpuscular Hemoglobin 33.3 pg (25.0-34.0); Mean Corpuscular Hgb Conc 34.4 g/dL (32.0-36.0); Mean Corpuscular Volume 96.9 fL (80.0-100.0); Mean Platelet Volume 11.4 fL (9.4-12.4); Monocytes # (auto) 0.28 K/uL (0.11-0.59); Monocytes % (auto) 3.5 %; Neutrophils # (auto) 6.33 K/uL (1.40-6.50); Neutrophils % (auto) 79.6 %; Platelet Count 161 K/uL (130-400); RDW Coefficient of Variation 14.5 % (11.5-14.5); RDW Standard Deviation 51.5 fL (36.4-46.3); Red Blood Count 3.24 M/uL (4.70-6.10); White Blood Count 7.95 K/ul (4.8-10.8)
[2022-08-27 14:39] LABS: C Reactive Protein 2.68 mg/dl (0-0.5)
--- NOTE | 2022-08-27 17:21 | Orthopedic Progress Note ---
Date of Service August 27, 2022 Assessment & Plan (1) Periostitis of ankle: Plan: 1. Chronic left lateral ankle ulceration overlying the lateral malleolus 1.5 cm x 0.4 cm x 1.0 cm extending to the layer of fat and periosteum. Previous surgical irrigation and debridement June 2022. 2. Diabetic ulceration left lateral ankle. 3. Multiple medical comorbidities. 08/27/2022: I had long discussion with patient family member, Mrs. Dacosta, and explained the findings from today's exam and recapped my examination from last evening. At this time I would advocate for MRI with contrast if at all possible to get the best data set regarding the issue of osteitis versus osteomyelitis of the left ankle. I was also in contact with earlier today. Continue with daily dry dressing changes as recommended. Will follow and review MRI results as they are available. 08/26/2022: Features suggesting chronic periostitis at minimum left lateral ankle consistent with previous surgical treatment. 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 To confirm or deny progression of disease would recommend an MRI with contrast ideally, however, understanding that the patient has CKD stage IIIb he may not be a candidate for such a study and would have to instead choose a regular MRI without contrast to be compared with the previous MRI performed in June. In the interim, recommend continued daily dry dressing changes over Adaptic or iodoform gauze and continuation of antibiotic coverage for a period of at least 7 to 10 days. Thank you for the opportunity to consult in the care of this patient. 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 He reports no new symptoms. No particular complaints of left ankle pain at this time. Physical Exam Physical Exam: Patient laying awake and somewhat alert while watching television in his hospital bed. No acute distress. Constitutional: WD/WN, vitals as above Neck: trachea midline, no thyromegaly Musculoskeletal: Examination of the left ankle demonstrates Optifoam dressing which was removed which was the same Optifoam dressing that I had placed on the ankle yesterday after examination. The ulceration is the same size 1.0 cm x 1.5 cm x 0.4 cm with some decrease in the periwound erythema. Slight decrease in tenderness around the ulceration site. No new evidence of abscess or purulence. Ulcer penetrates to the layer of fat. Some early granulation tissue around the periphery persists unchanged compared to yesterday exam. Distal neurosensory exam unchanged compared to yesterday. Pedal pulses palpable. Feet are warm. Sensation is preserved. Lymphatic: no cervical or axillary lymphadenopathy Results & Data Vital Signs (Past 12 Hours) Vital Signs Temp Pulse Pulse Resp BP Pulse Ox O2 Del Method 08/27/22 16:57 83 08/27/22 15:40 36.9 C 69 20 112/71 97 Room Air 08/27/22 10:41 36.3 C L 80 19 126/79 Room Air 08/27/22 08:00 Room Air
--- NOTE | 2022-08-27 18:17 | Infectious Disease Progress Nt ---
Date of Service August 27, 2022 Assessment & Plan (1) Hyperosmolar hyperglycemic state (HHS): (2) Stage 3b chronic kidney disease: (3) Periostitis of ankle: Plan This is an 86-year old male with pmh of ckd, recurrent utis,urothelial carcinoma of the bladder status post urostomy, colon cancer s/p colectomy, diabetes, atrial fibrillation on Eliquis who presents to the with increased generalized weakness. He is a poor historian and most history obtained per chart review. On admission he is hemodynamically stable. Labs noted for a Glucose of 544, wbc 3.4, Hg 13.3, HCT 40.5, AG 15, BUn 105, cr 1.8. UA noted for 10-30 WBC with 20- 30 epithelial cells. UC with multiple organisms not identified. BC with no growth to date. CXR shows no acute findings. He has changes c/w prior prior granulomatous disease. He has a h/o UTi with Pseudomonas aeruginosa, Klebsiella pneumoniae, E faecalis. He is being managed for hyperosmolar hyperglycemic state. He was started empirically on Meropenem and Daptomycin for possible UTI thought to have triggered this. ID consulted for UTI. He denies urinary symptoms,abdominal or back pain, nausea, vomiting or chills. He is not a reliable historian but tells me he came in with Left Leg pain and points to his left ankle wound. He has chronic knee pain, but states his knees are not bothering him at this time. Micro BC 08/21 Sterile UC 08/21 three types of organisms present, all high counts., now corrected to GNR ABX Dapto 08/21- ongoing Meropenem08/21-08/27 Ceftazidime 08/27-ongoing 1. Hyperosmolar hyperglycemic state 2. Painful Left lateral ankle wound/ infection/ history of ankle periostitis with h/o PSA ( S cefepime) 3. Left great toe foot chronic appearing wound 4. Asymptomatic pyuria: denies urine symptoms ( poor historian) 5. History of PSA ( S ceftaz, I cefepime)and E faecalis and Klebsiella in urine 6. RLQ ileal conduit and urostomy 7. History Bl knee pain sp injections. He denies urinary symptoms, but is a poor historian, UC initially reported with mixed org, On 08/27 corrected to GNR. ID/susc pending. He has already received 7 days of broad abx: Meropenem --> ceftaz/vanco. He has no history of ESBL or g. He has likely received enough abx for presumed UTI with out bacteremia He complains of increasing Left ankle pain at site of wound. The area is warm and tender: Concern for acute on chronic ankle site infection prompted xray of foot which shows mild lateral cortical irregularity of the distal fibula suspicious for osteomyelitis. On 06/04 he underwent I+D of left lateral malleolus with application of skin graft by Dr. Fuchs. OR cultures are grow Pseudomonas aeruginosa, without resistance. Imaging at the time ws not consistent with osteomyelitis, however ID suspect deep seated infection with tenosynovitis so it was recommended that he be treated with a r 3 week course of IV Cefepime through 06/25/22 Recommendations: Urine sample on 08/21 initially reported with multiple species, now corrected to GNR, follow up GNR ID and sensi. Doubt UTI. I feel that his lateral ankle wound infection is likely driving his presentation. Left foot xray findings suspicious for osteo, Pending MRI, Follow up MRI results Continue Ceftazidime 2 g iv q12 ( will cover prior PSA strains and Klebsiella in urine cx as well as PSA strain from wound cx Continue Daptomycin for skin coverage at ankle pending ankle MRI ID will continue to follow. Daria Rand MD, MPH Infectious Disease [facility], ID Division Call [phone] with questions Admission and Anticipated Discharge Date Admission Date: August 21, 2022 Subjective This patient recommendation is based on a telemedicine consult request which was completed asynchronously through chart review and information provided by the primary physician. The patient was not seen or examined today. The evaluation is consultative in nature and all patient care and treatment decisions can either be accepted or rejected by the patient's primary hospital-based treating physician using their own independent medical judgment for their patient. Time Spent Reviewing Chart: 31+ minutes UC obtained on 08/21 now corrected and is showing GNR left ankle xray shows mild lateral cortical irregularity of the distal fibula suspicious for osteomyelitis. Seen by ortho, pending Mri Afebrile Results & Data Vital Signs (Past 12 Hours) Vital Signs Temp Pulse Pulse Resp BP Pulse Ox O2 Del Method 08/27/22 16:57 83 08/27/22 15:40 36.9 C 69 20 112/71 97 Room Air 08/27/22 10:41 36.3 C L 80 19 126/79 Room Air 08/27/22 08:00 Room Air Laboratory Results Laboratory Results - last 48 hr 08/25/22 08/26/22 08/26/22 20:09 05:57 05:57 WBC 6.88 RBC 3.30 L Hgb 10.8 L Hct 31.4 L MCV 95.2 MCH 32.7 MCHC 34.4 RDW Std Deviation 51.0 H RDW Coeff of Tasneem 14.6 H Plt Count 131 MPV 11.6 Immature Gran % (Auto) Neut % (Auto) Lymph % (Auto) Butts % (Auto) Eos % (Auto) Baso % (Auto) Neut # (Auto) Lymph # (Auto) Butts # (Auto) Eos # (Auto) Baso # (Auto) Immature Gran # (Auto) ESR Sodium 138 Potassium 3.4 L Chloride 116 H Carbon Dioxide 16 L Anion Gap 6 BUN 73 H Creatinine 1.64 H Est Cr Clr Drug Dosing 30.7 Est GFR ( Amer) 43.2 Est GFR (Non-Af Amer) 37.3 BUN/Creatinine Ratio 44.5 H Glucose 105 H POC Glucose 211 H Calcium 8.5 L Phosphorus 3.6 C-Reactive Protein Albumin 2.8 L Procalcitonin Urine Color Urine Appearance Urine pH Ur Specific [place] Urine Protein Urine Glucose (UA) Urine Ketones Urine Blood Urine Nitrite Urine Bilirubin Urine Urobilinogen Ur Leukocyte Esterase Urine WBC (Auto) Urine RBC (Auto) U Hyaline Cast (Auto) U Epithel Cells (Auto) Urine Bacteria (Auto) Ur Renal Epithelial Cell 08/26/22 08/26/22 08/26/22 07:39 11:41 16:46 WBC RBC Hgb Hct MCV MCH MCHC RDW Std Deviation RDW Coeff of Tasneem Plt Count MPV Immature Gran % (Auto) Neut % (Auto) Lymph % (Auto) Butts % (Auto) Eos % (Auto) Baso % (Auto) Neut # (Auto) Lymph # (Auto) Butts # (Auto) Eos # (Auto) Baso # (Auto) Immature Gran # (Auto) ESR Sodium Potassium Chloride Carbon Dioxide Anion Gap BUN Creatinine Est Cr Clr Drug Dosing Est GFR ( Amer) Est GFR (Non-Af Amer) BUN/Creatinine Ratio Glucose POC Glucose 124 H 155 H 74 Calcium Phosphorus C-Reactive Protein Albumin Procalcitonin Urine Color Urine Appearance Urine pH Ur Specific [place] Urine Protein Urine Glucose (UA) Urine Ketones Urine Blood Urine Nitrite Urine Bilirubin Urine Urobilinogen Ur Leukocyte Esterase Urine WBC (Auto) Urine RBC (Auto) U Hyaline Cast (Auto) U Epithel Cells (Auto) Urine Bacteria (Auto) Ur Renal Epithelial Cell 08/26/22 08/26/22 08/27/22 20:34 Unknown 05:37 WBC RBC Hgb Hct MCV MCH MCHC RDW Std Deviation RDW Coeff of Tasneem Plt Count MPV Immature Gran % (Auto) Neut % (Auto) Lymph % (Auto) Butts % (Auto) Eos % (Auto) Baso % (Auto) Neut # (Auto) Lymph # (Auto) Butts # (Auto) Eos # (Auto) Baso # (Auto) Immature Gran # (Auto) ESR Sodium 140 Potassium 3.7 Chloride 115 H Carbon Dioxide 19 L Anion Gap 6 BUN 75 H Creatinine 1.66 H Est Cr Clr Drug Dosing 30.7 Est GFR ( Amer) 42.6 Est GFR (Non-Af Amer) 36.8 BUN/Creatinine Ratio 45.2 H Glucose 146 H POC Glucose 159 H Calcium 8.5 L Phosphorus 3.9 C-Reactive Protein 2.68 H Albumin 2.7 L Procalcitonin Urine Color Yellow Urine Appearance Cloudy A Urine pH 6.5 Ur Specific [place] 1.007 Urine Protein Negative Urine Glucose (UA) 1+ H Urine Ketones Negative Urine Blood Trace H Urine Nitrite Negative Urine Bilirubin Negative Urine Urobilinogen Negative Ur Leukocyte Esterase Trace H Urine WBC (Auto) 5-10 H Urine RBC (Auto) 0-4 U Hyaline Cast (Auto) 5-10 H U Epithel Cells (Auto) >30 H Urine Bacteria (Auto) Negative Ur Renal Epithelial Cell Not Reportable 08/27/22 08/27/22 08/27/22 07:16 11:13 14:05 WBC 7.95 RBC 3.24 L Hgb 10.8 L Hct 31.4 L MCV 96.9 MCH 33.3 MCHC 34.4 RDW Std Deviation 51.5 H RDW Coeff of Tasneem 14.5 Plt Count 161 MPV 11.4 Immature Gran % (Auto) 0.5 Neut % (Auto) 79.6 Lymph % (Auto) 13.7 Butts % (Auto) 3.5 Eos % (Auto) 2.4 Baso % (Auto) 0.3 Neut # (Auto) 6.33 Lymph # (Auto) 1.09 L Butts # (Auto) 0.28 Eos # (Auto) 0.19 Baso # (Auto) 0.02 Immature Gran # (Auto) 0.04 ESR Sodium Potassium Chloride Carbon Dioxide Anion Gap BUN Creatinine Est Cr Clr Drug Dosing Est GFR ( Amer) Est GFR (Non-Af Amer) BUN/Creatinine Ratio Glucose POC Glucose 145 H 183 H Calcium Phosphorus C-Reactive Protein Albumin Procalcitonin Urine Color Urine Appearance Urine pH Ur Specific [place] Urine Protein Urine Glucose (UA) Urine Ketones Urine Blood Urine Nitrite Urine Bilirubin Urine Urobilinogen Ur Leukocyte Esterase Urine WBC (Auto) Urine RBC (Auto) U Hyaline Cast (Auto) U Epithel Cells (Auto) Urine Bacteria (Auto) Ur Renal Epithelial Cell 08/27/22 08/27/22 08/27/22 14:05 14:05 16:25 WBC RBC Hgb Hct MCV MCH MCHC RDW Std Deviation RDW Coeff of Tasneem Plt Count MPV Immature Gran % (Auto) Neut % (Auto) Lymph % (Auto) Butts % (Auto) Eos % (Auto) Baso % (Auto) Neut # (Auto) Lymph # (Auto) Butts # (Auto) Eos # (Auto) Baso # (Auto) Immature Gran # (Auto) ESR 32 H Sodium Potassium Chloride Carbon Dioxide Anion Gap BUN Creatinine Est Cr Clr Drug Dosing Est GFR ( Amer) Est GFR (Non-Af Amer) BUN/Creatinine Ratio Glucose POC Glucose 178 H Calcium Phosphorus C-Reactive Protein Albumin Procalcitonin 0.13 Urine Color Urine Appearance Urine pH Ur Specific [place] Urine Protein Urine Glucose (UA) Urine Ketones Urine Blood Urine Nitrite Urine Bilirubin Urine Urobilinogen Ur Leukocyte Esterase Urine WBC (Auto) Urine RBC (Auto) U Hyaline Cast (Auto) U Epithel Cells (Auto) Urine Bacteria (Auto) Ur Renal Epithelial Cell Diagnostic Findings Microbiology 08/21/22 Unknown Urine,Clean Catch Urine Culture - Preliminary Gram negative bacilli 08/21/22 19:17 Blood Aerobic Blood Culture - Final No growth in Aerobic bottle after 5 days. 08/21/22 19:17 Blood Anaerobic Blood Culture - Final 08/21/22 19:26 Blood Aerobic Blood Culture - Final No growth in Aerobic bottle after 5 days. 08/21/22 19:26 Blood Anaerobic Blood Culture - Final Ankle X-Ray 08/27/22 13:16 XR ankle LT min 3V routine HISTORY: 86 years-old Male left ankle wound/ possible osteo chronic left ankle pain with possible osteomyelitis COMPARISON: MRI 05/30/2022, radiographs 05/06/2022. TECHNIQUE: 3 views of the left ankle FINDINGS: Demineralized appearance of the bones. Moderate osteoarthritis of the ankle. Spurring of the calcaneus. Mild circumferential soft tissue swelling. Arterial calcifications. No acute fracture, or dislocation. There is mild cortical irregularity and lucency involving the distal fibular lateral cortex seen best on the oblique image, new from prior. IMPRESSION: Mild lateral cortical irregularity of the distal fibula suspicious for osteomyelitis. ACT 112: Negative or not required by law. The above report was generated using voice recognition software. It may contain grammatical, syntax or spelling errors. Electronically signed by: Parish Robles M.D. 08/27/2022 1:43 PM
[2022-08-27] MEDS: DAPTOmycin 275 MG in SYRINGE 0 ML IV SCH (20:56)
[2022-08-27] MEDS ORDERED: GADOBUTROL 65ML VIAL IV ONE (22:16)
--- NOTE | 2022-08-27 22:46 | Hospitalist Progress Note ---
Date of Service August 27, 2022 Assessment & Plan (1) Hyperosmolar hyperglycemic state (HHS): Plan: -Admit to the PCU on tele -Currently stable -Patient noted to have significant hyperglycemia of 544, no ketones in his urine, VBG with pH of 7.27 -AG WNL, bicarb at 15 -Likely caused by acute UTI and only being on oral antihyperglycemics -Lactate ordered on admission is in process -Potassium at 3.6, Will give 40 meq PO KCL prior to starting Insulin drip -Start insulin drip with [facility] protocol -ED ordered Normosol at 250 mL/hr, will be started soon -Confirmed with nursing staff and communication placed to let ergonomics engineer provider know when his BSG falls below 300 so Normosol can be changed to D5w -Hold oral antihyperglycemics -Will repeat BMP, Mag, and VBG in 3 hours to ensure he is correcting adequately -Monitor intake and output q6h -BL SCD's and home Eliquis for DVT PPX -AM CBC, BMP, mag, PT/INR -HH and DMII diet, minced/moist with honey thick liquids -PT/OT consults ordered as patient may need home health On 08/23 consulted nephro: appears to have resolved Now on half normal saline, will monitor, patient may need weekly labs at home to ensure patient is not becoming dehydrated. 08/24 Sodium slightly worse, will reinstitute D5W 08/25-08/27 BIcarb appears low, sodium improved. appreciate input from nephrology cut back rate of D5W. will stop on 08/28 (2) Periostitis of ankle: Plan: -S/P debridement last admission by Orthopedics -Coupled outpatient course of Cefepime in rehab -Appears to be healing well, no acute signs of infection -Wound care nurse consult placed -Consulted ortho. Recommended MRI of ankle appreciate input from ID. COntinue Dapto and ceftazidime. (3) UTI (urinary tract infection): Plan: -Patient noted to have UA indicative of acute UTI today -Has previously grown Enterococcus Faecalis, Pseudomonas, and Klebsella -After review of previous urine cultures/sensitivities and discussions with Pharmacy, will start the patient on Daptomycin and Meropenem -Will hold oral antihyperglycemics and statin while on Dapto -Follow urine and blood cultures -Urostomy management ordered ID consult placed. Though likely this is a contamination given urostomy and difficulty obtaining a clean sample. Asked lab to run cultures as 4 of 5 bacteria likely contaminate but one of the bacteria, appears to be a pathogen. will await culture. (4) Acute hypernatremia: Plan: -Corrected sodium of 158 in the ED -Due to severe dehydration with HHS and high Urostomy output -Continue IV hydration -sodium improved. (5) Abnormal ECG: Plan: -ECG in the ED noted to have ST depressions in the inferolateral leads -This was when the patient was in afib RVR -The patient has been without chest pain and hemodynamically stable -Likely due to demand from acute illness and severe dehydration on arrival -Will continue to monitor on tele, will order repeat ECG for the am (6) Silent aspiration: Plan: -Long history -Stable on RA today with stable chronic findings on CXR today -Will continue with minced/moist diet with honey thick liquids (7) Paroxysmal atrial fibrillation: Plan: -Initially noted to be in afib RVR with HR in the low 100's on arrival -Currently stable -Continue IV hydration -Continue Eliquis -Monitor on tele (8) Hypertension: Plan: -Currently stable -Not on antihypertensives, continue to monitor (9) Dyslipidemia: Plan: -Hold statin while on Daptomycin (10) MGUS (monoclonal gammopathy of unknown significance): Plan: -Has been monitoring outpatient -will monitor in house. Plan Patient refusing rehab or SNF, wants to go home with home health. Updated and daughter on phone on 08/27 Admission and Anticipated Discharge Date Admission Date: August 21, 2022 Subjective Patient reports no new symptoms. Patient reports feeling well. Review of Systems 2 Review of Systems: All systems reviewed & are unremarkable except as noted in HPI & below Physical Exam Physical Exam: General: In no acute distress, stated age, ill appearing but non-toxic HEENT: Normocephalic, atraumatic Chest/Pulm: No respiratory distress, symmetrical chest expansion, clear breath sounds throughout Cardiac: irregular rate and rhythm, no murmurs noted Results & Data Results & Data Vital Signs (Past 12 Hours) Vital Signs Temp Pulse Pulse Resp BP BP Pulse Ox 08/27/22 22:45 36.6 C 69 18 132/65 93 08/27/22 19:57 08/27/22 19:26 36.9 C 74 16 119/74 97 08/27/22 16:57 83 08/27/22 15:40 36.9 C 69 20 112/71 97 O2 Del Method 08/27/22 22:45 Room Air 08/27/22 19:57 Room Air 08/27/22 19:26 Room Air 08/27/22 16:57 08/27/22 15:40 Room Air PG Care Time/CCT Total # of Minutes Spent Total Time Spent with Patient: Total time spent is greater than 50% in coordination of care (as documented) at patient's floor/unit and/or counseling patient: Coding Level of Care Code 06448 SUB INP/OBS CARE 2/35MIN Diagnoses Hyperosmolar hyperglycemic state (HHS) E11.00 Periostitis of ankle M86.9 UTI (urinary tract infection) N39.0 Acute hypernatremia E87.0 Abnormal ECG R94.31 Silent aspiration T17.900A Paroxysmal atrial fibrillation I48.0 Hypertension I10 Dyslipidemia E78.5 MGUS (monoclonal gammopathy of unknown significance) D47.2
--- NOTE | 2022-08-27 23:16 | Magnetic Resonance Report ---
Exam(s): MRI LEFT ANKLE W/WO Contrast IV Amt: gativist 6.5 ml EXAM: MR Left Lower Extremity Without and With Intravenous Contrast, Ankle CLINICAL HISTORY: Reason for exam: osteomyelitis. TECHNIQUE: Multiplanar magnetic resonance images of the left ankle without and with intravenous contrast. CONTRAST: Patient received gativist 6.5 ml of IV contrast COMPARISON: X-ray dated the 08/27/2022 and MRI dated 05/30/2022. FINDINGS: LIGAMENTS: Anterior talofibular: Unremarkable. Posterior talofibular: Unremarkable. Anterior tibiofibular: Unremarkable. Posterior tibiofibular: Unremarkable. Calcaneofibular: Unremarkable. Deltoid: Unremarkable. Spring: Unremarkable. Lisfranc: Unremarkable. TENDONS: Achilles: Unremarkable. Flexor: Unremarkable. Extensor: Unremarkable. Peroneal: Mild increase signal within the distal aspect of the peroneus brevis tendon, cannot exclude a tear. Tibialis anterior: Unremarkable. Tibialis posterior: Unremarkable. Muscles: Unremarkable. Fluid: Mild edema surrounding the ankle and to the medial aspect of the plantar region. Sinus tarsi: Unremarkable. Tarsal tunnel: Unremarkable. Plantar fascia: Unremarkable. Bones/joints: Sequela of old avulsion injury versus subchondral cystic changes of the distal fibula/lateral malleolus, image 22, series 10 and image 19, series 12. There is mild enhancement through the lateral aspect of the lateral malleolus following contrast administration, a combination of findings which may indicate early osteomyelitis. There is a bone marrow edema involving the distal aspect of the fibula. Narrowing of the tibial talar articulation. IMPRESSION: 1. Bone marrow edema corresponding to mild enhancement best visualized on fat suppression T1 images raising the concern for early osteomyelitis. 2. Mild degenerative disease as described. 3. Possible partial tear involving the distal aspect of the peroneus brevis tendon. Electronically signed by: Kavya Rousseau MD 08/27/22 23:15 PM
[2022-08-28 06:00] LABS: Hematocrit (blood only) 31.3 % (42.0-52.0); Hemoglobin 10.6 g/dl (14.0-18.0); Mean Corpuscular Hemoglobin 32.8 pg (25.0-34.0); Mean Corpuscular Hgb Conc 33.9 g/dL (32.0-36.0); Mean Corpuscular Volume 96.9 fL (80.0-100.0); Platelet Count 151 K/uL (130-400); RDW Coefficient of Variation 14.6 % (11.5-14.5); Red Blood Count 3.23 M/uL (4.70-6.10); White Blood Count 6.44 K/ul (4.8-10.8)
[2022-08-28 06:18] LABS: Albumin Level 2.8 gm/dl (3.4-5.0); BUN Creatinine Ratio 45.3 (10-20); C Reactive Protein 1.94 mg/dl (0-0.5); Calcium 8.6 mg/dl (8.6-10.3); Creatinine Clr Calc Pharmacy 31.5 ml/min; Est GFR (African American) 44.9 ml/min; Est GFR (Non-African American) 38.7 ml/min; Phosphorus 3.5 mg/dl (2.5-4.9); Potassium 3.4 mmol/L (3.5-5.1)
[2022-08-28] MEDS: SODIUM BICARBONATE 650 MG TAB PO SCH ×2 (07:57→20:46)
[2022-08-28] MEDS: FAMOTIDINE 20 MG TAB PO SCH (07:57)
[2022-08-28] MEDS: CYANOCOBALAMIN (B-12) 500 MCG TABLET PO SCH (07:58)
[2022-08-28] MEDS: APIXABAN 2.5 MG TAB PO SCH (07:58)
[2022-08-28] MEDS ORDERED: POTASSIUM CHLORIDE CRTAB 20 MEQ TABCR PO STA (08:12)
[2022-08-28] MEDS: INSULIN ASPART PER UNIT CHARGE SC SCH ×4 (08:56→20:23)
[2022-08-28] MEDS: LANTUS PER UNIT CHARGE SC SCH ×2 (08:57→20:46)
[2022-08-28] MEDS: POTASSIUM CHLORIDE PWD 20 MEQ PACK PO SCH (09:02)
--- NOTE | 2022-08-28 09:21 | Hospitalist Progress Note ---
Date of Service August 28, 2022 Assessment & Plan (1) Osteomyelitis of ankle: Plan: - MRI 08/27: 1. Bone marrow edema corresponding to mild enhancement best visualized on fat suppression T1 images raising the concern for early osteomyelitis. 2. Mild degenerative disease as described. 3. Possible partial tear involving the distal aspect of the peroneus brevis tendon. -S/P debridement last admission by Orthopedics -Completed outpatient course of Cefepime in rehab ID consulted. Reviewed above. Given past cultures with intermediate sensitivity to cefepime as an recommended for a 6-week course of ceftazidime due to early osteomyelitis noted above. Dapto is continued for now pending additional culture results, although this will likely be discontinued to pursue ceftazidime monotherapy. Ortho consulted, anticipate debridement and biopsy culture 08/28. -Wound care consulted Preoperative risk assessment: Patient does have evidence of underlying coronary vessel disease and demand ischemia, which has been reversible, with no persistent EKG changes. Repeat troponin was with mild elevation and repeat normalized. He has had no chest point. Denies history of CHF. Preoperative creatinine is at baseline and less than 2, he is not on home insulin but has been switched to sliding scale. While he does not have a history of LA/positive exercise test/chest pain/pathologic Q waves suspect RCRI class I slightly underestimates his overall surgical risk. Reviewed with cardiology, would not recommend additional ischemic testing or treatment preoperatively and patient has normal wall motion on his echo. With this in mind would consider a moderate risk candidate proceed with surgical debridement for osteomyelitis on 08/29. Discussed with patient and his daughter who are in agreement (2) Hyperosmolar hyperglycemic state (HHS): Plan: -Admitted to the PCU on -Currently stable -Ppresented with hyperglycemia of 544, no ketones in his urine, VBG with pH of 7.27. AG WNL, bicarb at 15 -Suspect chronic hyperglycemia driven by underlying infection, acute UTI with additional osteomyelitis as noted above HHS improved 08/23, patient has subsequently been converted to subcutaneous insulin. Was transiently on D5 which was then discontinued BSG adequately controlled 08/28 N.p.o. at midnight pending surgical debridement, dose reduced basal insulin by 30% while n.p.o. and switch AC/at bedtime checks to every 6 hours (3) Periostitis of ankle: (4) UTI (urinary tract infection): Plan: -With infected appearing UA, UCx positive for GNB pending speciation. Prior urine positive for Enterococcus faecalis, Pseudomonas, Klebsiella Initially started on meropenem/daptomycin; subsequently narrowed to daptomycin and ceftazidime. As long as Enterococcus does not speciate from cultures anticipate narrowing to ceftazidime monotherapy as otherwise noted -Will hold oral antihyperglycemics and statin while on Dapto -Follow urine and blood cultures -Urostomy management ordered - ID following, appreciate recommendations Is with a high risk of contamination due to urostomy and inability to obtain a true clean sample (5) Acute hypernatremia: Plan: Corrected sodium of 158 with severe dehydration on admission, subsequently resolved following rehydration. Sodium 138 on 08/26 (6) Abnormal ECG: Plan: -ECG in the ED noted to have ST depressions in the inferolateral leads -This was when the patient was in afib RVR and with significant volume depletion -The patient has been without chest pain and hemodynamically stable -Likely due to demand from acute illness and severe dehydration on arrival -Remains chest pain-free Last echo 09/2020: EF 55 to 60%, no change compared to 2009. No regional wall motion abnormality. Given admitting ST changes and anticipated surgery troponin, repeat EKG, and echo ordered for restratification Initial troponin minimally elevated at 24 and then normalized on repeat. EKG changes have normalized. Echo 08/28: EF 60 to 65%, no regional wall motion abnormalities, LV SF normal, compared to 2020 no significant change. Denies history of CHF. Perioperative risk assessment as otherwise noted. (7) Silent aspiration: Plan: -Long history -Stable on RA today with stable chronic findings on CXR today -Will continue with minced/moist diet with honey thick liquids (8) Paroxysmal atrial fibrillation: Plan: -Initially noted to be in afib RVR with HR in the low 100's on arrival -Currently stable -Continue IV hydration -Eliquis held evening of 08/28 anticipation of surgery 08/26 -Monitor on tele Cardiac eval as otherwise noted (9) Hypertension: Plan: -Currently stable -Not on antihypertensives, continue to monitor (10) Dyslipidemia: Plan: -Hold statin while on Daptomycin (11) MGUS (monoclonal gammopathy of unknown significance): Plan: -Has been monitoring outpatient -will monitor in house. Admission and Anticipated Discharge Date Admission Date: August 21, 2022 Subjective Seen at the bedside. Patient does express frustration with ongoing hospitalization. Denies fever/chills overnight. No chest pain, chest pressure. Denies any chest pain during admission. No palpitations. No lightheadedness or dizziness. Reports his ankle hurts a little bit when he moves it, but is not in pain at rest. Review of Systems Review of Systems: All systems reviewed & are unremarkable except as noted in Subjective Physical Exam Physical Exam: General: A&Ox3. NAD. Cooperative. HEENT: Atraumatic, normocephalic. Vision/hearing intact. EoM intact. Pulm: CTAB A&P. -wheezes, -rales, -rhonchi. Symmetrical chest rise. No increased work of breathing. No respiratory distress. Cardiac: RRR, -mrg. Radial pulses intact and symmetrical. Abdominal: Nontender, nondistended, soft. BS present. Ext: Left lateral ankle with superficial ulceration, scant purulence and tenderness to palpation. No surrounding erythema. No pitting edema Results & Data Results & Data Vital Signs (Past 12 Hours) Vital Signs Temp Pulse Pulse Resp BP Pulse Ox O2 Del Method 08/28/22 03:56 37.1 C 77 18 119/71 96 Room Air 08/27/22 23:00 81 08/27/22 22:45 36.6 C 69 18 132/65 93 Room Air PG Care Time/CCT Total # of Minutes Spent Total Time Spent with Patient: Total time spent is greater than 50% in coordination of care (as documented) at patient's floor/unit and/or counseling patient: Coding Level of Care Code 99175 SUB INP/OBS CARE 3/50MIN Diagnoses Osteomyelitis of ankle M86.9 Hyperosmolar hyperglycemic state (HHS) E11.00 Periostitis of ankle M86.9 UTI (urinary tract infection) N39.0 Acute hypernatremia E87.0 Abnormal ECG R94.31 Silent aspiration T17.900A Paroxysmal atrial fibrillation I48.0 Hypertension I10 Dyslipidemia E78.5 MGUS (monoclonal gammopathy of unknown significance) D47.2
--- NOTE | 2022-08-28 12:12 | Pharmacy Report ---
Pharmacy Glycemic Short Note 2 - Date of Service August 28, 2022 - Glycemic Short BSG Results (Last 24 hours): 08/27/22 08/27/22 08/28/22 16:25 20:07 05:39 Glucose 92 POC Glucose 178 H 184 H 08/28/22 08/28/22 07:26 10:52 Glucose POC Glucose 103 H 151 H OUTPATIENT ANTIDIABETIC REGIMEN: * Farxiga 5 mg PO daily * Glipizide ER 5 mg PO daily * Metformin ER 500 mg PO BID * Tradjenta 5 mg PO daily HbA1c = 9.4% on 07/23/22 ASSESSMENT: 08/28 * BSGs yesterday were [phone] mg/dL. Patient received 29 units of insulin (12 units of basal and 17 units of bolus). * Fasting today is 103 mg/dL. Decrease basal to 10 units (5 units BID). * Spoke with physician - dextrose fluids discontinued today. Patient continues on daptomycin and ceftazidime. * Continue Novolog as BSGs relatively stable. 08/26/22: * Patient received total of 21 units of insulin yesterday, of which 12 units were basal insulin * Fasting BSG 124 mg/dL - continue with same basal, will spit dose equally BID * Loosened CR at breakfast as concerns for BSG trending down at lunch 08/24/22: * BSGs noticeably improved yesterday, basal insulin reduced in light of fasting BSG of 94 mg/dL and patient not eating * Received 11 units of insulin yesterday (9 units of basal and 2 units of bolus) * D5W @80 mL/hr ordered by nephrology today 08/22/22: * 86 y/o M admitted for HHS last night. IV fluids and insulin drip was started on him yesterday. * BSGs trended down overnight and insulin drip rate was turned off this morning. * Patient is currently getting Dextrose in IV fluids running at 150 ml/hr which will contribute to elevated BSGs. Per Nephro, continue Dextrose. * He is also ordered a diet. * Patient is known to glycemic service from past admissions. Basal insulin 12 units once daily has worked well, therefore will continue the same. * Novolog parameters chosen based on previous admissions also. PLAN FOR INPATIENT GLYCEMIC CONTROL: * Hold outpatient oral diabetes medications * Basal insulin * Lantus 5 units bid * Bolus insulin * NovoLog per scale ACHS or Q6hrs while NPO * Goal Range: Low 110 mg/dL - High 150 mg/dL * Correction Factor: 45 mg/dL/unit * Nutritional / Prandial insulin per carb ratio of 1 unit per 10 grams CHO consumed
--- NOTE | 2022-08-28 13:27 | XCELERA ---
[id number]
--- NOTE | 2022-08-28 14:07 | Electrocardiogram Report ---
Test Reason : Blood Pressure : / mmHG Vent. Rate : 083 BPM Atrial Rate : 234 BPM P-R Int : 000 ms QRS Dur : 102 ms QT Int : 400 ms P-R-T Axes : 000 060 048 degrees QTc Int : 470 ms Atrial fibrillation with premature ventricular or aberrantly conducted complexes Low voltage QRS Poor R wave progression, consider anterior [place] vs. lead placement vs. LVH Abnormal ECG When compared with ECG of 22-AUG-2022 05:08, Minimal criteria for Anterior infarct are now Present Confirmed by Jabier Leblanc ([id number]) on 08/28/2022 2:07:09 PM Referred By: REFERRED SELF Confirmed By:Jabier Leblanc
[2022-08-28] MEDS ORDERED: DOCUSATE SODIUM 100 MG CAP PO ONE (14:27)
[2022-08-28] MEDS ORDERED: POLYETHYLENE (MIRALAX) 17 GM PACK PO PRN (15:17)
--- NOTE | 2022-08-28 18:08 | Infectious Disease Progress Nt ---
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 He is a poor historian and most history obtained per chart review. On admission he is hemodynamically stable. Labs noted for a Glucose of 544, wbc 3.4, Hg 13.3, HCT 40.5, AG 15, BUn 105, cr 1.8. UA noted for 10-30 WBC with 20- 30 epithelial cells. UC with multiple organisms not identified. BC with no growth to date. CXR shows no acute findings. He has changes c/w prior prior granulomatous disease. He has a h/o UTi with Pseudomonas aeruginosa, Klebsiella pneumoniae, E faecalis. He was managed for hyperosmolar hyperglycemic state. He was started empirically on Meropenem and Daptomycin for possible UTI thought to have triggered this. ID consulted for UTI. He denies urinary symptoms,abdominal or back pain, nausea, vomiting or chills. He is not a reliable historian, but tells me he came in with left leg pain and points to his left ankle wound. He has chronic knee pain, but states his knees are not bothering him at this time. Micro BC 08/21 Sterile UC 08/21 three types of organisms present, all high counts., now corrected to GNR ABX Dapto 08/21- ongoing Meropenem08/21-08/27 Ceftazidime 08/27-ongoing 1. Hyperosmolar hyperglycemic state 2. Painful Left lateral ankle wound with early osteomyelitis 3. Left great toe foot chronic appearing wound 4. Asymptomatic pyuria: denies urine symptoms 5. History of PSA ( S ceftaz, I cefepime)and E faecalis and Klebsiella in urine 6. RLQ ileal conduit and urostomy 7. History Bl knee pain sp injections. He denies urinary symptoms, but is a poor historian, UC initially reported with mixed org. On 08/27 corrected to GNR. ID/susc pending. He has already received 7 days of broad abx: Meropenem --> ceftaz and daptomycin. He has no history of ESBL org. meropenem changed to Ceftaz on 08/27 based on all prior PSA susceptibility. He has likely received enough abx for presumed UTI with out bacteremia He complains of increasing Left ankle pain at site of wound. The area is warm and tender: Concern for acute on chronic ankle site infection prompted xray of foot which shows mild lateral cortical irregularity of the distal fibula suspicious for osteomyelitis. On 06/04 he underwent I+D of left lateral malleolus with application of skin graft by Dr. Fuchs. OR cultures grew Pseudomonas aeruginosa, without resistance. Imaging at the time was not consistent with osteomyelitis, however ID suspected deep seated infection with tenosynovitis so it was recommended that he be treated with a 3 week course of IV Cefepime through 06/25/22. MRI foot completed today shows findings c/f L lateral malleolus osteo. Recommendations: -Urine sample on 08/21 initially reported with multiple species, now corrected to GNR, follow up GNR ID and sensi. Doubt UTI. I feel that his lateral ankle wound infection is likely driving his presentation. -Left foot xray and MRI findings suspicious for osteo, will need a bone diagnosis; recommend obtaining aerobic, anaerobic fungal and afb cx and pathology. I anticipate a minimum of 6 weeks of pathogen targeted therapy from OR date. He has been on abx since 08/21 so cx may be sterile, but path likely positive -Continue Ceftazidime 2 g iv q12 ( will cover prior PSA strains and Klebsiella in urine cx as well as PSA strain from wound cx in 05/29) -Will continue Daptomycin pending bone cx results. D/w team ID will continue to follow. Daria Rand MD, MPH Infectious Disease [facility], [facility] Call [phone] with questions Admission and Anticipated Discharge Date Admission Date: August 21, 2022 Subjective Subsequent visit was provided via telemedicine using two-way real-time interactive telecommunication between the patient and the telemedicine provider. For the duration of the visit, the provider was performing the assessment from a different facility than the patient. This includesuse of bluetooth stethoscope forauscultationperformed by the telepresenter that the telemedicine provider can hear if described in the physical exam. Elevator Service Technician contact information: Please call [facility] Call Center [phone]. (Phone Number For Physician Use Only) After establishing a telemedicine visit, patient was: Patient was verified with two unique identifiers and Patient/authorized rep acknowledged consent and understanding Time Spent with Patient: Subsequent => 25 min Review of System + left ankle pain Physical Exam Physical Exam: Gen- nad Neck- supple Neuro- AAO*2 Lung- No increased work of breathing LE- Left ankle ulcer unchanged- TTP Results & Data Vital Signs (Past 12 Hours) Vital Signs Temp Pulse Pulse Resp BP Pulse Ox O2 Del Method 08/28/22 16:04 74 08/28/22 15:54 36.5 C 77 18 130/67 97 Room Air 08/28/22 14:52 76 08/28/22 13:33 Room Air 08/28/22 11:12 37.0 C 59 L 18 117/71 97 Room Air Laboratory Results Laboratory Results - last 48 hr 08/26/22 08/27/22 08/27/22 Unknown 05:37 07:16 WBC RBC Hgb Hct MCV MCH MCHC RDW Std Deviation RDW Coeff of Tasneem Plt Count MPV Immature Gran % (Auto) Neut % (Auto) Lymph % (Auto) Wood % (Auto) Eos % (Auto) Baso % (Auto) Neut # (Auto) Lymph # (Auto) Wood # (Auto) Eos # (Auto) Baso # (Auto) Immature Gran # (Auto) ESR Sodium 140 Potassium 3.7 Chloride 115 H Carbon Dioxide 19 L Anion Gap 6 BUN 75 H Creatinine 1.66 H Est Cr Clr Drug Dosing 30.7 Est GFR ( Amer) 42.6 Est GFR (Non-Af Amer) 36.8 BUN/Creatinine Ratio 45.2 H Glucose 146 H POC Glucose 145 H Calcium 8.5 L Phosphorus 3.9 Total Creatine Kinase Troponin I High Sens C-Reactive Protein 2.68 H Albumin 2.7 L Procalcitonin Urine Color Yellow Urine Appearance Cloudy A Urine pH 6.5 Ur Specific [place] 1.007 Urine Protein Negative Urine Glucose (UA) 1+ H Urine Ketones Negative Urine Blood Trace H Urine Nitrite Negative Urine Bilirubin Negative Urine Urobilinogen Negative Ur Leukocyte Esterase Trace H Urine WBC (Auto) 5-10 H Urine RBC (Auto) 0-4 U Hyaline Cast (Auto) 5-10 H U Epithel Cells (Auto) >30 H Urine Bacteria (Auto) Negative Ur Renal Epithelial Cell Not Reportable 08/27/22 08/27/22 08/27/22 11:13 14:05 14:05 WBC 7.95 RBC 3.24 L Hgb 10.8 L Hct 31.4 L MCV 96.9 MCH 33.3 MCHC 34.4 RDW Std Deviation 51.5 H RDW Coeff of Tasneem 14.5 Plt Count 161 MPV 11.4 Immature Gran % (Auto) 0.5 Neut % (Auto) 79.6 Lymph % (Auto) 13.7 Wood % (Auto) 3.5 Eos % (Auto) 2.4 Baso % (Auto) 0.3 Neut # (Auto) 6.33 Lymph # (Auto) 1.09 L Wood # (Auto) 0.28 Eos # (Auto) 0.19 Baso # (Auto) 0.02 Immature Gran # (Auto) 0.04 ESR 32 H Sodium Potassium Chloride Carbon Dioxide Anion Gap BUN Creatinine Est Cr Clr Drug Dosing Est GFR ( Amer) Est GFR (Non-Af Amer) BUN/Creatinine Ratio Glucose POC Glucose 183 H Calcium Phosphorus Total Creatine Kinase Troponin I High Sens C-Reactive Protein Albumin Procalcitonin Urine Color Urine Appearance Urine pH Ur Specific [place] Urine Protein Urine Glucose (UA) Urine Ketones Urine Blood Urine Nitrite Urine Bilirubin Urine Urobilinogen Ur Leukocyte Esterase Urine WBC (Auto) Urine RBC (Auto) U Hyaline Cast (Auto) U Epithel Cells (Auto) Urine Bacteria (Auto) Ur Renal Epithelial Cell 08/27/22 08/27/22 08/27/22 14:05 16:25 20:07 WBC RBC Hgb Hct MCV MCH MCHC RDW Std Deviation RDW Coeff of Tasneem Plt Count MPV Immature Gran % (Auto) Neut % (Auto) Lymph % (Auto) Wood % (Auto) Eos % (Auto) Baso % (Auto) Neut # (Auto) Lymph # (Auto) Wood # (Auto) Eos # (Auto) Baso # (Auto) Immature Gran # (Auto) ESR Sodium Potassium Chloride Carbon Dioxide Anion Gap BUN Creatinine Est Cr Clr Drug Dosing Est GFR ( Amer) Est GFR (Non-Af Amer) BUN/Creatinine Ratio Glucose POC Glucose 178 H 184 H Calcium Phosphorus Total Creatine Kinase Troponin I High Sens C-Reactive Protein Albumin Procalcitonin 0.13 Urine Color Urine Appearance Urine pH Ur Specific [place] Urine Protein Urine Glucose (UA) Urine Ketones Urine Blood Urine Nitrite Urine Bilirubin Urine Urobilinogen Ur Leukocyte Esterase Urine WBC (Auto) Urine RBC (Auto) U Hyaline Cast (Auto) U Epithel Cells (Auto) Urine Bacteria (Auto) Ur Renal Epithelial Cell 08/28/22 08/28/22 08/28/22 05:39 05:39 07:26 WBC 6.44 RBC 3.23 L Hgb 10.6 L Hct 31.3 L MCV 96.9 MCH 32.8 MCHC 33.9 RDW Std Deviation 51.0 H RDW Coeff of Tasneem 14.6 H Plt Count 151 MPV 11.0 Immature Gran % (Auto) Neut % (Auto) Lymph % (Auto) Wood % (Auto) Eos % (Auto) Baso % (Auto) Neut # (Auto) Lymph # (Auto) Wood # (Auto) Eos # (Auto) Baso # (Auto) Immature Gran # (Auto) ESR Sodium 138 Potassium 3.4 L Chloride 114 H Carbon Dioxide 18 L Anion Gap 6 BUN 72 H Creatinine 1.59 H Est Cr Clr Drug Dosing 31.5 Est GFR ( Amer) 44.9 Est GFR (Non-Af Amer) 38.7 BUN/Creatinine Ratio 45.3 H Glucose 92 POC Glucose 103 H Calcium 8.6 Phosphorus 3.5 Total Creatine Kinase 45 Troponin I High Sens C-Reactive Protein 1.94 H Albumin 2.8 L Procalcitonin Urine Color Urine Appearance Urine pH Ur Specific [place] Urine Protein Urine Glucose (UA) Urine Ketones Urine Blood Urine Nitrite Urine Bilirubin Urine Urobilinogen Ur Leukocyte Esterase Urine WBC (Auto) Urine RBC (Auto) U Hyaline Cast (Auto) U Epithel Cells (Auto) Urine Bacteria (Auto) Ur Renal Epithelial Cell 08/28/22 08/28/22 08/28/22 09:43 10:52 14:09 WBC RBC Hgb Hct MCV MCH MCHC RDW Std Deviation RDW Coeff of Tasneem Plt Count MPV Immature Gran % (Auto) Neut % (Auto) Lymph % (Auto) Wood % (Auto) Eos % (Auto) Baso % (Auto) Neut # (Auto) Lymph # (Auto) Wood # (Auto) Eos # (Auto) Baso # (Auto) Immature Gran # (Auto) ESR Sodium Potassium Chloride Carbon Dioxide Anion Gap BUN Creatinine Est Cr Clr Drug Dosing Est GFR ( Amer) Est GFR (Non-Af Amer) BUN/Creatinine Ratio Glucose POC Glucose 151 H Calcium Phosphorus Total Creatine Kinase Troponin I High Sens 24.0 H 19.3 D C-Reactive Protein Albumin Procalcitonin Urine Color Urine Appearance Urine pH Ur Specific [place] Urine Protein Urine Glucose (UA) Urine Ketones Urine Blood Urine Nitrite Urine Bilirubin Urine Urobilinogen Ur Leukocyte Esterase Urine WBC (Auto) Urine RBC (Auto) U Hyaline Cast (Auto) U Epithel Cells (Auto) Urine Bacteria (Auto) Ur Renal Epithelial Cell Laboratory Results - last 48 hr 08/26/22 08/27/22 08/27/22 Unknown 05:37 07:16 WBC RBC Hgb Hct MCV MCH MCHC RDW Std Deviation RDW Coeff of Tasneem Plt Count MPV Immature Gran % (Auto) Neut % (Auto) Lymph % (Auto) Wood % (Auto) Eos % (Auto) Baso % (Auto) Neut # (Auto) Lymph # (Auto) Wood # (Auto) Eos # (Auto) Baso # (Auto) Immature Gran # (Auto) ESR Sodium 140 Potassium 3.7 Chloride 115 H Carbon Dioxide 19 L Anion Gap 6 BUN 75 H Creatinine 1.66 H Est Cr Clr Drug Dosing 30.7 Est GFR ( Amer) 42.6 Est GFR (Non-Af Amer) 36.8 BUN/Creatinine Ratio 45.2 H Glucose 146 H POC Glucose 145 H Calcium 8.5 L Phosphorus 3.9 Total Creatine Kinase Troponin I High Sens C-Reactive Protein 2.68 H Albumin 2.7 L Procalcitonin Urine Color Yellow Urine Appearance Cloudy A Urine pH 6.5 Ur Specific [place] 1.007 Urine Protein Negative Urine Glucose (UA) 1+ H Urine Ketones Negative Urine Blood Trace H Urine Nitrite Negative Urine Bilirubin Negative Urine Urobilinogen Negative Ur Leukocyte Esterase Trace H Urine WBC (Auto) 5-10 H Urine RBC (Auto) 0-4 U Hyaline Cast (Auto) 5-10 H U Epithel Cells (Auto) >30 H Urine Bacteria (Auto) Negative Ur Renal Epithelial Cell Not Reportable 08/27/22 08/27/22 08/27/22 11:13 14:05 14:05 WBC 7.95 RBC 3.24 L Hgb 10.8 L Hct 31.4 L MCV 96.9 MCH 33.3 MCHC 34.4 RDW Std Deviation 51.5 H RDW Coeff of Tasneem 14.5 Plt Count 161 MPV 11.4 Immature Gran % (Auto) 0.5 Neut % (Auto) 79.6 Lymph % (Auto) 13.7 Wood % (Auto) 3.5 Eos % (Auto) 2.4 Baso % (Auto) 0.3 Neut # (Auto) 6.33 Lymph # (Auto) 1.09 L Wood # (Auto) 0.28 Eos # (Auto) 0.19 Baso # (Auto) 0.02 Immature Gran # (Auto) 0.04 ESR 32 H Sodium Potassium Chloride Carbon Dioxide Anion Gap BUN Creatinine Est Cr Clr Drug Dosing Est GFR ( Amer) Est GFR (Non-Af Amer) BUN/Creatinine Ratio Glucose POC Glucose 183 H Calcium Phosphorus Total Creatine Kinase Troponin I High Sens C-Reactive Protein Albumin Procalcitonin Urine Color Urine Appearance Urine pH Ur Specific [place] Urine Protein Urine Glucose (UA) Urine Ketones Urine Blood Urine Nitrite Urine Bilirubin Urine Urobilinogen Ur Leukocyte Esterase Urine WBC (Auto) Urine RBC (Auto) U Hyaline Cast (Auto) U Epithel Cells (Auto) Urine Bacteria (Auto) Ur Renal Epithelial Cell 08/27/22 08/27/22 08/27/22 14:05 16:25 20:07 WBC RBC Hgb Hct MCV MCH MCHC RDW Std Deviation RDW Coeff of Tasneem Plt Count MPV Immature Gran % (Auto) Neut % (Auto) Lymph % (Auto) Wood % (Auto) Eos % (Auto) Baso % (Auto) Neut # (Auto) Lymph # (Auto) Wood # (Auto) Eos # (Auto) Baso # (Auto) Immature Gran # (Auto) ESR Sodium Potassium Chloride Carbon Dioxide Anion Gap BUN Creatinine Est Cr Clr Drug Dosing Est GFR ( Amer) Est GFR (Non-Af Amer) BUN/Creatinine Ratio Glucose POC Glucose 178 H 184 H Calcium Phosphorus Total Creatine Kinase Troponin I High Sens C-Reactive Protein Albumin Procalcitonin 0.13 Urine Color Urine Appearance Urine pH Ur Specific [place] Urine Protein Urine Glucose (UA) Urine Ketones Urine Blood Urine Nitrite Urine Bilirubin Urine Urobilinogen Ur Leukocyte Esterase Urine WBC (Auto) Urine RBC (Auto) U Hyaline Cast (Auto) U Epithel Cells (Auto) Urine Bacteria (Auto) Ur Renal Epithelial Cell 08/28/22 08/28/22 08/28/22 05:39 05:39 07:26 WBC 6.44 RBC 3.23 L Hgb 10.6 L Hct 31.3 L MCV 96.9 MCH 32.8 MCHC 33.9 RDW Std Deviation 51.0 H RDW Coeff of Tasneem 14.6 H Plt Count 151 MPV 11.0 Immature Gran % (Auto) Neut % (Auto) Lymph % (Auto) Wood % (Auto) Eos % (Auto) Baso % (Auto) Neut # (Auto) Lymph # (Auto) Wood # (Auto) Eos # (Auto) Baso # (Auto) Immature Gran # (Auto) ESR Sodium 138 Potassium 3.4 L Chloride 114 H Carbon Dioxide 18 L Anion Gap 6 BUN 72 H Creatinine 1.59 H Est Cr Clr Drug Dosing 31.5 Est GFR ( Amer) 44.9 Est GFR (Non-Af Amer) 38.7 BUN/Creatinine Ratio 45.3 H Glucose 92 POC Glucose 103 H Calcium 8.6 Phosphorus 3.5 Total Creatine Kinase 45 Troponin I High Sens C-Reactive Protein 1.94 H Albumin 2.8 L Procalcitonin Urine Color Urine Appearance Urine pH Ur Specific [place] Urine Protein Urine Glucose (UA) Urine Ketones Urine Blood Urine Nitrite Urine Bilirubin Urine Urobilinogen Ur Leukocyte Esterase Urine WBC (Auto) Urine RBC (Auto) U Hyaline Cast (Auto) U Epithel Cells (Auto) Urine Bacteria (Auto) Ur Renal Epithelial Cell 08/28/22 08/28/22 08/28/22 09:43 10:52 14:09 WBC RBC Hgb Hct MCV MCH MCHC RDW Std Deviation RDW Coeff of Tasneem Plt Count MPV Immature Gran % (Auto) Neut % (Auto) Lymph % (Auto) Wood % (Auto) Eos % (Auto) Baso % (Auto) Neut # (Auto) Lymph # (Auto) Wood # (Auto) Eos # (Auto) Baso # (Auto) Immature Gran # (Auto) ESR Sodium Potassium Chloride Carbon Dioxide Anion Gap BUN Creatinine Est Cr Clr Drug Dosing Est GFR ( Amer) Est GFR (Non-Af Amer) BUN/Creatinine Ratio Glucose POC Glucose 151 H Calcium Phosphorus Total Creatine Kinase Troponin I High Sens 24.0 H 19.3 D C-Reactive Protein Albumin Procalcitonin Urine Color Urine Appearance Urine pH Ur Specific [place] Urine Protein Urine Glucose (UA) Urine Ketones Urine Blood Urine Nitrite Urine Bilirubin Urine Urobilinogen Ur Leukocyte Esterase Urine WBC (Auto) Urine RBC (Auto) U Hyaline Cast (Auto) U Epithel Cells (Auto) Urine Bacteria (Auto) Ur Renal Epithelial Cell Diagnostic Findings Microbiology 08/21/22 Unknown Urine,Clean Catch Urine Culture - Preliminary Gram negative bacilli 08/21/22 19:17 Blood Aerobic Blood Culture - Final No growth in Aerobic bottle after 5 days. 08/21/22 19:17 Blood Anaerobic Blood Culture - Final 08/21/22 19:26 Blood Aerobic Blood Culture - Final No growth in Aerobic bottle after 5 days. 08/21/22 19:26 Blood Anaerobic Blood Culture - Final Ankle MRI 08/27/22 19:04 Exam(s): MRI LEFT ANKLE W/WO Contrast IV Amt: gativist 6.5 ml EXAM: MR Left Lower Extremity Without and With Intravenous Contrast, Ankle CLINICAL HISTORY: Reason for exam: osteomyelitis. TECHNIQUE: Multiplanar magnetic resonance images of the left ankle without and with intravenous contrast. CONTRAST: Patient received gativist 6.5 ml of IV contrast COMPARISON: X-ray dated the 08/27/2022 and MRI dated 05/30/2022. FINDINGS: LIGAMENTS: Anterior talofibular: Unremarkable. Posterior talofibular: Unremarkable. Anterior tibiofibular: Unremarkable. Posterior tibiofibular: Unremarkable. Calcaneofibular: Unremarkable. Deltoid: Unremarkable. Spring: Unremarkable. Lisfranc: Unremarkable. TENDONS: Achilles: Unremarkable. Flexor: Unremarkable. Extensor: Unremarkable. Peroneal: Mild increase signal within the distal aspect of the peroneus brevis tendon, cannot exclude a tear. Tibialis anterior: Unremarkable. Tibialis posterior: Unremarkable. Muscles: Unremarkable. Fluid: Mild edema surrounding the ankle and to the medial aspect of the plantar region. Sinus tarsi: Unremarkable. Tarsal tunnel: Unremarkable. Plantar fascia: Unremarkable. Bones/joints: Sequela of old avulsion injury versus subchondral cystic changes of the distal fibula/lateral malleolus, image 22, series 10 and image 19, series 12. There is mild enhancement through the lateral aspect of the lateral malleolus following contrast administration, a combination of findings which may indicate early osteomyelitis. There is a bone marrow edema involving the distal aspect of the fibula. Narrowing of the tibial talar articulation. IMPRESSION: 1. Bone marrow edema corresponding to mild enhancement best visualized on fat suppression T1 images raising the concern for early osteomyelitis. 2. Mild degenerative disease as described. 3. Possible partial tear involving the distal aspect of the peroneus brevis tendon. Electronically signed by: Kavya Rousseau MD 08/27/22 23:15 PM
[2022-08-28] MEDS: DAPTOmycin 275 MG in SYRINGE 0 ML IV SCH (23:59)
[2022-08-29] MEDS ORDERED: PLASMA-LYTE A 1,000 ML IV SCH
[2022-08-29 06:03] LABS: Basophils # (auto) 0.03 K/uL (0-0.2); Basophils % (auto) 0.4 %; Eosinophils # (auto) 0.17 K/uL (0-0.50); Eosinophils % (auto) 2.5 %; Hematocrit (blood only) 30.3 % (42.0-52.0); Hemoglobin 10.4 g/dl (14.0-18.0); Immature Granulocytes # (auto) 0.03 K/uL (0.01-0.20); Immature Granulocytes % (auto) 0.4 %; Lymphocytes # (auto) 0.83 K/uL (1.2-3.4); Lymphocytes % (auto) 12.2 %; Mean Corpuscular Hemoglobin 32.7 pg (25.0-34.0); Mean Corpuscular Hgb Conc 34.3 g/dL (32.0-36.0); Mean Corpuscular Volume 95.3 fL (80.0-100.0); Mean Platelet Volume 11.3 fL (9.4-12.4); Monocytes # (auto) 0.28 K/uL (0.11-0.59); Monocytes % (auto) 4.1 %; Neutrophils # (auto) 5.46 K/uL (1.40-6.50); Neutrophils % (auto) 80.4 %; Platelet Count 173 K/uL (130-400); RDW Coefficient of Variation 14.4 % (11.5-14.5); RDW Standard Deviation 50.1 fL (36.4-46.3); Red Blood Count 3.18 M/uL (4.70-6.10)
[2022-08-29 06:21] LABS: Albumin Level 2.8 gm/dl (3.4-5.0); BUN Creatinine Ratio 45.9 (10-20); Calcium 8.4 mg/dl (8.6-10.3); Creatinine Clr Calc Pharmacy 30.6 ml/min; Est GFR (African American) 44.9 ml/min; Est GFR (Non-African American) 38.7 ml/min; Phosphorus 3.1 mg/dl (2.5-4.9); Potassium 3.7 mmol/L (3.5-5.1)
--- NOTE | 2022-08-29 07:31 | Anesthesiology Consultation ---
Date of Service August 29, 2022 Assessment & Plan (1) Encounter for pre-operative examination: History Surgery Operation Date: 08/29/22 07:00 Proposed Procedures p Incision and Drainage Left Lateral Ankle Ulcer, Debridement and Bone Biopsy of Distal Fibula - James Fuchs DO Height/Weight Height: 6 ft 1 in Weight: 64.9 kg Allergies Allergy/AdvReac Type Severity Reaction Status Date / Time No Known Allergies Allergy Verified 08/21/22 16:46 Medications Home Medications Medication Instructions Recorded Confirmed Last Taken coenzyme Q10 100 mg capsule (Co 100 mg PO QAM #30 caps 10/19/18 08/21/22 08/21/22 Q-10) [id number] 5 mg-zeaxanth 1 cap PO QAM 10/19/18 08/21/22 08/21/22 1 mg-bilberry 7.5 mg-herbal capsule (CurTran Health Formula) acetaminophen 500 mg capsule 500 mg PO Q6H PRN Pain 12/10/20 08/21/22 04/05/22 ascorbate calcium (vitamin C) 500 500 mg PO DAILY 12/10/20 08/21/22 08/21/22 mg tablet apixaban 2.5 mg tablet (Eliquis) 2.5 mg PO BID #180 tabs 02/13/22 08/21/22 08/21/22 08:00 atorvastatin 40 mg tablet (Lipitor) 40 mg PO QAM #90 tabs 03/19/22 08/21/22 08/21/22 coffee extract 50 mg-phosphatidyl 1 tab PO HS 04/06/22 08/21/22 08/20/22 serine 50 mg chewable tablet (Neuriva Original) zinc acetate 50 mg (zinc) capsule 50 mg PO DAILY 04/06/22 08/21/22 08/21/22 linagliptin 5 mg tablet (Tradjenta) 5 mg PO DAILY #90 tabs 04/29/22 08/21/22 08/21/22 polyethylene glycol 3350 17 gram 17 g PO DAILY PRN constipation #30 04/29/22 08/21/22 Unknown oral powder packet (Miralax) ea famotidine 20 mg tablet 20 mg PO QAM #90 tabs 05/07/22 08/21/22 08/21/22 tramadol 50 mg tablet 50 mg PO Q4H PRN severe pain #10 06/13/22 08/21/22 Unknown tabs blood-glucose meter #1 ea 07/23/22 07/23/22 Unknown dapagliflozin propanediol 5 mg 5 mg PO DAILY #90 tabs 07/24/22 08/21/22 08/21/22 tablet (Farxiga) blood sugar diagnostic #100 ea 07/30/22 Unknown lancets 30 gauge (OneTouch Delica #100 ea 08/13/22 Unknown Plus Lancet) cyanocobalamin (vitamin B-12) 2,500 mcg sublingual QAM 08/21/22 08/21/22 08/21/22 2,500 mcg sublingual tablet (Vitamin B-12) Active Medications Generic Name Dose Route Start Last Admin Trade Name Freq PRN Reason Stop Dose Admin Apixaban 2.5 mg 08/21/22 21:00 08/28/22 07:58 Apixaban 2.5 Mg Tab PO 09/20/22 20:59 2.5 mg BID BERE Administration Cyanocobalamin 2,500 mcg 08/22/22 09:00 08/29/22 07:35 Cyanocobalamin (B-12) 500 Mcg Tablet PO 09/21/22 08:59 Not Given QAM BERE Famotidine 20 mg 08/22/22 09:00 08/29/22 07:35 Famotidine 20 Mg Tab PO 09/21/22 08:59 Not Given QAM BERE Ceftazidime 2,000 mg/ Dextrose 60 mls @ 120 mls/hr 08/27/22 12:00 08/29/22 01:11 IV 09/03/22 11:59 Infused Q12H BERE Infusion Protocol Daptomycin 275 mg/ Syringe 5.5 mls @ 3.25 mls/min 08/28/22 23:00 08/28/22 23:59 IV 08/31/22 22:59 3.25 mls/min Q24H BERE Administration Protocol Parenteral Electrolytes 1,000 mls @ 80 mls/hr 08/29/22 00:00 08/28/22 23:59 Plasma-Lyte A Ph 7.4 IV 08/29/22 12:29 80 mls/hr .[id number] BERE Administration Insulin Aspart 0 units 08/26/22 16:30 08/29/22 07:34 Insulin Aspart Per Unit Charge SC 09/25/22 16:29 Not Given ACHS [facility] Insulin Glargine 5 units 08/29/22 09:00 08/29/22 07:35 Lantus Per Unit Charge CA 09/28/22 08:59 Not Given DAILY BERE Polyethylene Glycol 17 gm 08/28/22 15:17 08/28/22 15:22 Polyethylene (Miralax) 17 Gm Pack PO 09/27/22 15:16 17 gm DAILY PRN Administration Constipation Potassium Chloride 40 meq 08/28/22 09:00 08/29/22 07:35 Potassium Chloride Pwd 20 Meq Pack PO 09/27/22 08:59 Not Given QAM BERE Sodium Bicarbonate 1,300 mg 08/26/22 09:00 08/29/22 07:35 Sodium Bicarbonate 650 Mg Tab PO 09/25/22 08:59 Not Given BID BERE Past Medical History Medical History Allergic rhinitis AMD (age related macular degeneration) Anemia Chronic osteoarthritis Diabetes mellitus with kidney complication Dyslipidemia Hypertension MGUS (monoclonal gammopathy of unknown significance) Osteopenia Peripheral neuropathy Premature ventricular contractions Proteinuria Stage 3b chronic kidney disease Stage III chronic kidney disease Thrombocytopenia 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 Alvarez 09/27/20 History of ankle surgery Dr. Fuchs - 06/2022 History of total cystectomy (05/2010) cystectomy w/ creation of ileal conduit (secondary to bladder caner) S/P Mohs surgery for basal cell carcinoma (04/2020) Social History Smoking Status: Never smoker tobacco type: cigarettes Do You Dip or Chew Tobacco: No Hx Alcohol Use: No Alcohol type: beer alcohol intake frequency: a few times a week Hx Substance Use: No substance use type: does not use Physical Exam Vital Signs Last Vital Signs Temp 36.6 C 08/29/22 03:10 Pulse 75 08/29/22 03:10 Resp 20 08/29/22 03:10 BP 127/60 08/29/22 03:10 Pulse Ox 94 08/29/22 03:10 O2 Del Method Room Air 08/29/22 03:10 Testing Laboratory Results 08/29/22 05:36 08/29/22 05:36 PT 11.9 Seconds (9.0-12.0) 08/24/22 06:24 INR 1.1 (0.9-1.1) 08/24/22 06:24 APTT 28.6 Seconds (21.0-31.0) 08/21/22 14:50 Urine Color Yellow 08/26/22 Unknown Urine Appearance Cloudy (Clear) A 08/26/22 Unknown Urine pH 6.5 (4.5-7.5) 08/26/22 Unknown Ur Specific Platinum 1.007 (1.000-1.030) 08/26/22 Unknown Urine Protein Negative (Negative) 08/26/22 Unknown Urine Glucose (UA) 1+ (Negative) H 08/26/22 Unknown Urine Ketones Negative (Negative) 08/26/22 Unknown Urine Nitrite Negative (Negative) 08/26/22 Unknown Ur Leukocyte Esterase Trace (Negative) H 08/26/22 Unknown Urine WBC (Auto) 5-10 /hpf (0-5) H 08/26/22 Unknown Urine RBC (Auto) 0-4 /hpf (0-4) 08/26/22 Unknown U Hyaline Cast (Auto) 5-10 /lpf (0-5) H 08/26/22 Unknown U Epithel Cells (Auto) >30 /lpf (0-5) H 08/26/22 Unknown Urine Bacteria (Auto) Negative (Negative) 08/26/22 Unknown 08/21/22 Unknown Urine Culture - Preliminary Urine,Clean Catch Gram negative bacilli 08/21/22 19:17 Aerobic Blood Culture - Final Blood No growth in Aerobic bottle after 5 days. Anaerobic Blood Culture - Final 08/21/22 19:26 Aerobic Blood Culture - Final Blood No growth in Aerobic bottle after 5 days. Anaerobic Blood Culture - Final 08/29/22 08/28/22 06:58 20:19 POC Glucose 76 132 H Electrocardiogram Date: 08/28/22 Atrial fibrillation with premature ventricular or aberrantly conducted complexes Low voltage QRS Poor R wave progression, consider anterior NH vs. lead placement vs. LVH Abnormal ECG When compared with ECG of 22-AUG-2022 05:08, Minimal criteria for Anterior infarct are now Present Confirmed by Jabier Leblanc ([id number]) on 08/28/2022 2:07:09 PM
[2022-08-29] MEDS: INSULIN ASPART PER UNIT CHARGE SC SCH ×4 (07:34→20:08)
[2022-08-29] MEDS: FAMOTIDINE 20 MG TAB PO SCH (07:35)
[2022-08-29] MEDS: CYANOCOBALAMIN (B-12) 500 MCG TABLET PO SCH (07:35)
[2022-08-29] MEDS: SODIUM BICARBONATE 650 MG TAB PO SCH ×2 (07:35→20:11)
[2022-08-29] MEDS: POTASSIUM CHLORIDE PWD 20 MEQ PACK PO SCH (07:35)
[2022-08-29] MEDS: LANTUS PER UNIT CHARGE SC SCH (07:35)
--- NOTE | 2022-08-29 08:01 | History & Physical Bridge Note ---
Date of Service August 29, 2022 History & Physical Bridge Note I have examined the patient, reviewed the History & Physical and in the interval since the performance of the History & Physical I have noted the following changes of clinical significance:Will require a debridement of the left ankle with bone biopsy due to findings of early osteomyelitis lateral malleolus.
[2022-08-29] MEDS ORDERED: LIDOCAINE 2% 2 ML VIAL/AMP(20MG/ML) INFIL ONE (08:05)
[2022-08-29] MEDS ORDERED: PROPOFOL IV EMULSION 10 MG/ML 20 ML VIAL IV ONE (08:05)
[2022-08-29] MEDS ORDERED: fentaNYL citrate PF 100 MCG/2 ML VIAL ONE (08:05)
[2022-08-29] MEDS ORDERED: ONDANSETRON INJ 2 MG/ML 2 ML VIAL ONE (08:05)
[2022-08-29] MEDS ORDERED: DEXAMETHASONE SOD INJ 4 MG/ML VIAL ONE (08:05)
[2022-08-29] MEDS ORDERED: BUPIVACAINE 0.5 % 5 MG/1 ML MPF 30ML VIAL ONE (08:07)
[2022-08-29] MEDS ORDERED: ceFAZolin 330 MG/ML 1 GM VIAL ONE (08:08)
[2022-08-29] MEDS ORDERED: PLASMA-LYTE A 250 ML IV ONE (08:18)
[2022-08-29] MEDS ORDERED: fentaNYL citrate PF 100 MCG/2 ML VIAL IV PRN (08:56)
[2022-08-29] MEDS ORDERED: ATROPINE SULFATE 0.1 MG/ML 10ML SYR IV PRN (08:56)
[2022-08-29] MEDS ORDERED: ePHEDrine sulfate 50 MG/ML AMP IV PRN (08:56)
[2022-08-29] MEDS ORDERED: ONDANSETRON INJ 2 MG/ML 2 ML VIAL IV PRN (08:56)
[2022-08-29] MEDS ORDERED: VANCOMYCIN HCL 1000MG/20ML VIAL ONE (09:25)
--- NOTE | 2022-08-29 10:00 | Pharmacy Report ---
Pharmacy Glycemic Short Note 2 - Date of Service August 29, 2022 - Glycemic Short BSG Results (Last 24 hours): 08/28/22 08/28/22 08/28/22 10:52 16:40 20:19 Glucose POC Glucose 151 H 117 H 132 H 08/29/22 08/29/22 08/29/22 05:36 06:58 08:32 Glucose 67 L POC Glucose 76 64 L* 08/29/22 08/29/22 08/29/22 08:34 08:36 09:12 Glucose POC Glucose 79 71 102 H OUTPATIENT ANTIDIABETIC REGIMEN: * Farxiga 5 mg PO daily -- consider discontinuing therapy d/t recurrent UTI's * Tradjenta 5 mg PO daily * HbA1c = 9.4% (07/23/22) ASSESSMENT: 08/29/22: * Pt was slightly hypoglycemic this morning (BSG 67mg/dL on lab draw), so Lantus was reduced to once daily this morning. * No further changes at this time. 08/28/22: * BSGs yesterday were [phone] mg/dL. Patient received 29 units of insulin (12 units of basal and 17 units of bolus). * Fasting today is 103 mg/dL. Decrease basal to 10 units (5 units BID). * Spoke with physician - dextrose fluids discontinued today. Patient continues on daptomycin and ceftazidime. * Continue Novolog as BSGs relatively stable. 08/26/22: * Patient received total of 21 units of insulin yesterday, of which 12 units were basal insulin * Fasting BSG 124 mg/dL - continue with same basal, will spit dose equally BID * Loosened CR at breakfast as concerns for BSG trending down at lunch 08/24/22: * BSGs noticeably improved yesterday, basal insulin reduced in light of fasting BSG of 94 mg/dL and patient not eating * Received 11 units of insulin yesterday (9 units of basal and 2 units of bolus) * D5W @80 mL/hr ordered by nephrology today 08/22/22: * 86 y/o M admitted for HHS last night. IV fluids and insulin drip was started on him yesterday. * BSGs trended down overnight and insulin drip rate was turned off this morning. * Patient is currently getting Dextrose in IV fluids running at 150 ml/hr which will contribute to elevated BSGs. Per Nephro, continue Dextrose. * He is also ordered a diet. * Patient is known to glycemic service from past admissions. Basal insulin 12 units once daily has worked well, therefore will continue the same. * Novolog parameters chosen based on previous admissions also. PLAN FOR INPATIENT GLYCEMIC CONTROL: * Hold outpatient oral diabetes medications * Basal insulin * Lantus 5 units SC once daily * Bolus insulin * NovoLog per scale ACHS or Q6hrs while NPO * Goal Range: Low 110 mg/dL - High 150 mg/dL * Correction Factor: 45 mg/dL/unit * Nutritional / Prandial insulin per carb ratio of 1 unit per 10 grams CHO consumed
--- NOTE | 2022-08-29 10:21 | Operative Report ---
Post Operative Report Pre & Post Diagnosis Operation Date: 08/29/22 07:00 Pre-Op Diagnosis: 1. Chronic left lateral ankle ulceration overlying the lateral malleolus 1.5 cm x 0.4 cm x 1.0 cm extending to the layer of fat and periosteum. 2. Diabetic ulceration left lateral ankle. 3. Early osteomyelitis left lateral malleolus 4. Periostitis of ankle Post-Op Diagnosis: 1. Chronic left lateral ankle ulceration overlying the lateral malleolus 1.5 cm x 0.5 cm x 1.0 cm extending to the layer of fat and periosteum. 2. Diabetic ulceration left lateral ankle. 3. Early osteomyelitis left lateral malleolus 4. Periostitis of ankle 5. Tenosynovitis peroneus longus and peroneus brevis tendons 6. Partial tear peroneus brevis tendon I identified the patient and participated in the time-out.: Yes Procedure Operation Date: 08/29/22 07:00 Actual Procedures p 1. Irrigation and Debridement Ulcer Left Lateral Ankle 1cm x 1.5cm x 0.5cm, 2. Irrigation and debridement with Tenosynovectomy peroneus longus and peroneus brevis tendons, 3. Debridement with Bone Biopsy Lateral Malleolus with Application of Vancomycin Powder(Left) - James Fuchs DO Surgeon James Fuchs DO Home Care Chaplain None Estimated Blood Loss 1 Findings Consistent with Post-Op Diagnosis Specimens Aerobic, anaerobic Gram stain lateral malleolus bone left; bone biopsy left lateral malleolus Drains None Anesthesia Type General Regional Complications none Disposition Accompanied Patient To Recovery: No Indications This is an 86-year-old gentleman who has had chronic ulceration of the left lateral malleolus for greater than 4 months. He had previous surgical debridement June 2022 and has been under the care of the diabetic foot clinic for an extended period of time. Patient presented this admission with electrolyte imbalance, UTI and other complaints which were addressed however his lateral ankle ulcer appeared to be stable initially. After MRI with contrast was obtained new finding of early osteomyelitis of the lateral malleolus prompted surgical debridement and plan for bone biopsy at the area of concern to the lateral malleolus as indicated. Patient was then scheduled for surgery. Description of Procedure All potential risks, benefits, complications, alternatives, rehab, need for further surgery, potential for incomplete relief of symptoms, neurovascular injury, DVT, PE, , stiffness, weakness, loss of function, persistent pain, swelling, numbness, bone fracture and wound complications were discussed with the patient and family. The patient and family decided to proceed with the procedure as indicated. Patient was taken to the operative suite and placed supine on the operating room table. After review of the consent and identification of the proper operative site the patient was anesthetized and an LMA was placed. All bony prominences were properly padded and protected. The left lower extremity was then sterilely prepped and draped in the usual fashion. After surgical timeout was performed, approximately 25 cc of 0.5% Marcaine was injected around the planned surgical site of the lateral malleolus extending both proximally and distal to the surgical site. The ulcer was measured and noted to be 1.5 cm x 1.0 cm x 0.5 cm in depth. Incision was made both proximal and distal to the ulceration and an elliptical resection of the edges of the circular ulcer or then excised to allow tissue mobilization to occur. The periwound slough was sharply excised with a 15 blade scalpel. Braydon rakes were applied to gain visualization with gentle traction. Careful sharp debridement was performed with a 15 blade scalpel down to the level of fat and periosteum overlying the lateral malleolus. There is noted to be some degree of slime coat overlying the periosteum consistent with periostitis. This was sharply incised and then excised using curettage with a sharp curette. The lateral malleolus was then probed with a Adson forcep there was a region of softness consistent with early osteomyelitis along the lateral aspect of the lateral malleolus. A curette was then used to open the cortex of the lateral malleolus in which point a aerobic anaerobic and Gram stain specimen was obtained from the site along with further curettage of the softened bone allowing for bone biopsy to also be obtained and passed off as specimen for assessment by the pathologist. Peroneal tendons were inspected and noted to have infectious tenosynovitis which was then resected with sharp dissection with 15 blade scalpel and tenotomy scissors. Debridement and tenosynovectomy of both the peroneus longus and peroneus brevis were performed with tenotomy scissors noting the small tear in the peroneus brevis. Peroneus brevis tendon was then sharply debrided back to a more healthy appearing tendon. The edges of the ulceration were then sharply abraded with a 15 blade scalpel resecting macerated tissue. Next the tenotomy scissors were then used to slightly undermined the tissue both medial and lateral to the ulceration to mobilize the tissue this was then followed by copious irrigation with pulsatile lavage 3 L with Ancef. After completed with irrigation new top sheet and top gloves were changed and approximately 500 mg of vancomycin powder was then sprinkled throughout the lateral ankle wound and into the biopsy site of the lateral malleolus. The tissue margins were then mobilized and closed using interrupted 3-0 nylon suture for low-tension improved closure. A sterile compressive dressing consisting of Xeroform gauze, sterile 4 x 4's, ABD pads, cast padding and a 4 inch Skip wrap was applied. The patient was awakened and taken to recovery in stable condition. I attest to the content of the Intraoperative Record and any orders documented therein. Any exceptions are noted below.
--- NOTE | 2022-08-29 11:08 | Anesthesiology Progress Note ---
Date of Service August 29, 2022 Anesthesia Post Procedure Vital Signs Vital Signs: Temp Pulse Pulse Pulse Resp BP BP 08/29/22 10:52 36.4 C L 77 20 123/70 08/29/22 10:35 36.4 C L 79 22 104/54 L 08/29/22 10:25 83 20 104/61 08/29/22 10:15 80 16 108/63 08/29/22 10:08 36 C L 87 14 114/70 08/29/22 07:34 36.8 C 77 16 107/50 L 08/29/22 03:10 36.6 C 75 20 127/60 08/29/22 00:00 77 08/28/22 23:13 36.6 C 87 18 110/64 08/28/22 19:57 08/28/22 19:33 36.5 C 81 18 108/67 08/28/22 16:04 74 08/28/22 15:54 36.5 C 77 18 130/67 08/28/22 14:52 76 08/28/22 13:33 08/28/22 11:12 37.0 C 59 L 18 117/71 Pulse Ox O2 Del Method O2 Flow Rate 08/29/22 10:52 99 Room Air 08/29/22 10:35 97 Room Air 08/29/22 10:25 98 Room Air 08/29/22 10:15 100 Room Air 08/29/22 10:08 98 Oxymask 6 08/29/22 07:34 95 Room Air 08/29/22 03:10 94 Room Air 08/29/22 00:00 08/28/22 23:13 96 Room Air 08/28/22 19:57 Room Air 08/28/22 19:33 94 Room Air 08/28/22 16:04 08/28/22 15:54 97 Room Air 08/28/22 14:52 08/28/22 13:33 Room Air 08/28/22 11:12 97 Room Air Transfer of Care Handoff Completed per policy Notes Mental Status: alert / awake / arousable and participated in evaluation Patient Amnestic to Procedure: Yes Nausea / Vomiting: adequately controlled Pain: adequately controlled Airway Patency, RR, SpO2: stable & adequate BP & HR: stable & adequate Hydration State: stable & adequate Anesthetic Complications: no major complications apparent and Pt Satisfied with anesthetic care
--- NOTE | 2022-08-29 16:17 | Hospitalist Progress Note ---
Date of Service August 29, 2022 Assessment & Plan (1) Osteomyelitis of ankle: Plan: - MRI 08/27: 1. Bone marrow edema corresponding to mild enhancement best visualized on fat suppression T1 images raising the concern for early osteomyelitis. 2. Mild degenerative disease as described. 3. Possible partial tear involving the distal aspect of the peroneus brevis tendon. -S/P debridement last admission by Orthopedics -Completed outpatient course of Cefepime in rehab ID consulted. Reviewed above. Given past cultures with intermediate sensitivity to cefepime as an recommended for a 6-week course of ceftazidime due to early osteomyelitis noted above. Dapto is continued for now pending final surgical culture results, although this will likely be discontinued to pursue ceftazidime monotherapy. -Wound care consulted Preoperative risk assessment: Patient does have evidence of underlying coronary vessel disease and demand ischemia, which has been reversible, with no persistent EKG changes. Repeat troponin was with mild elevation and repeat normalized. He has had no chest point. Denies history of CHF. Preoperative creatinine is at baseline and less than 2, he is not on home insulin but has been switched to sliding scale. While he does not have a history of [place]/positive exercise test/chest pain/pathologic Q waves suspect RCRI class I slightly underestimates his overall surgical risk. Reviewed with cardiology, would not recommend additional ischemic testing or treatment preoperatively and patient has normal wall motion on his echo. With this in mind would consider a moderate risk candidate proceed with surgical debridement for osteomyelitis on 08/29. Discussed with patient and his daughter who are in agreement S/p left lateral ankle debridement, tenosynovectomy 08/29/2022. Findings consistent with early osteomyelitis, tenosynovitis, periostitis of the ankle, and partial tear of the peroneus brevis tendon. Surgical culture sent. Ceftazidimedaptomycin continued pending cultures PT/OT following. Patient would prefer to return home but especially given repeat I&D may require placement (2) Hyperosmolar hyperglycemic state (HHS): Plan: -Admitted to the PCU on tele -Currently stable -Ppresented with hyperglycemia of 544, no ketones in his urine, VBG with pH of 7.27. AG WNL, bicarb at 15 -Suspect chronic hyperglycemia driven by underlying infection, acute UTI with additional osteomyelitis as noted above HHS improved 08/23, patient has subsequently been converted to subcutaneous insulin. Was transiently on D5 which was then discontinued Postop BSG 111, adequately controlled (3) Periostitis of ankle: (4) UTI (urinary tract infection): Plan: Overall presentation likely caused by osteomyelitis of the ankle. Infected appearing UA with UCx positive for GNB covered as otherwise noticed -Will hold oral antihyperglycemics and statin while on Dapto -Follow urine and blood cultures -Urostomy management ordered - ID following, appreciate recommendations Is with a high risk of contamination due to urostomy and inability to obtain a true clean sample (5) Acute hypernatremia: Plan: Corrected sodium of 158 with severe dehydration on admission, subsequently resolved following rehydration. Remains normalized (6) Abnormal ECG: Plan: -ECG in the ED noted to have ST depressions in the inferolateral leads -This was when the patient was in afib RVR and with significant volume depletion -The patient has been without chest pain and hemodynamically stable -Likely due to demand from acute illness and severe dehydration on arrival -Remains chest pain-free Last echo 09/2020: EF 55 to 60%, no change compared to 2009. No regional wall motion abnormality. Given admitting ST changes and anticipated surgery troponin, repeat EKG, and echo ordered for restratification Initial troponin minimally elevated at 24 and then normalized on repeat. EKG changes have normalized. Echo 08/28: EF 60 to 65%, no regional wall motion abnormalities, LV SF normal, compared to 2020 no significant change. Denies history of CHF. Perioperative risk assessment as otherwise noted. (7) Silent aspiration: Plan: -Long history -Stable on RA today with stable chronic findings on CXR today -Will continue with minced/moist diet with honey thick liquids (8) Paroxysmal atrial fibrillation: Plan: -Initially noted to be in afib RVR with HR in the low 100's on arrival -Currently stable -Continue IV hydration -Eliquis held evening of 08/28 anticipation of surgery 08/26 -Monitor on tele Cardiac eval as otherwise noted (9) Hypertension: Plan: -Currently stable -Not on antihypertensives, continue to monitor (10) Dyslipidemia: Plan: -Hold statin while on Daptomycin (11) MGUS (monoclonal gammopathy of unknown significance): Plan: -Has been monitoring outpatient -will monitor in house. Admission and Anticipated Discharge Date Admission Date: August 21, 2022 Jazmine Lim seen briefly preoperatively, no acute complaints. Revisited postoperatively, patient with grandson present. Feels well postop. No chest pain, chest pressure, shortness of breath, difficulty breathing. Denies pain is in his ankle which is currently well wrapped. Sensation of soft touch is intact in his toes. He is eating dinner, no questions or concerns. Denies fever, chills, sweats Review of Systems Review of Systems: All systems reviewed & are unremarkable except as noted in Subjective Physical Exam Physical Exam: General: A&Ox3. NAD. Cooperative. HEENT: Atraumatic, normocephalic. Vision/hearing intact. EoM intact. Pulm: CTAB A&P. -wheezes, -rales, -rhonchi. Symmetrical chest rise. No increased work of breathing. No respiratory distress. Cardiac: RRR, -mrg. Radial pulses intact and symmetrical. Abdominal: Nontender, nondistended, soft. BS present. Ext: Left ankle with well wrapped postoperative dressing, toes without swelling and sensation of soft touch intact bilaterally. Cap refill brisk in hallux on the left and right side. Results & Data Results & Data Vital Signs (Past 12 Hours) Vital Signs Temp Pulse Pulse Resp BP BP Pulse Ox 08/29/22 15:38 36.5 C 78 19 115/62 97 08/29/22 11:26 83 19 121/67 97 08/29/22 10:52 36.4 C L 77 20 123/70 99 08/29/22 10:35 36.4 C L 79 22 104/54 L 97 08/29/22 10:25 83 20 104/61 98 08/29/22 10:15 80 16 108/63 100 08/29/22 10:08 36 C L 87 14 114/70 98 08/29/22 07:34 36.8 C 77 16 107/50 L 95 O2 Del Method O2 Flow Rate 08/29/22 15:38 Room Air 08/29/22 11:26 Room Air 08/29/22 10:52 Room Air 08/29/22 10:35 Room Air 08/29/22 10:25 Room Air 08/29/22 10:15 Room Air 08/29/22 10:08 Oxymask 6 08/29/22 07:34 Room Air PG Care Time/CCT Total # of Minutes Spent Total Time Spent with Patient: Total time spent is greater than 50% in coordination of care (as documented) at patient's floor/unit and/or counseling patient: Coding Level of Care Code 73105 SUB INP/OBS CARE MIN Diagnoses Osteomyelitis of ankle M86.9 Hyperosmolar hyperglycemic state (HHS) E11.00 Periostitis of ankle M86.9 UTI (urinary tract infection) N39.0 Acute hypernatremia E87.0 Abnormal ECG R94.31 Silent aspiration T17.900A Paroxysmal atrial fibrillation I48.0 Hypertension I10 Dyslipidemia E78.5 MGUS (monoclonal gammopathy of unknown significance) D47.2
--- NOTE | 2022-08-29 16:57 | Infectious Disease Progress Nt ---
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 He is a poor historian and most history obtained per chart review. On admission he is hemodynamically stable. Labs noted for a Glucose of 544, wbc 3.4, Hg 13.3, HCT 40.5, AG 15, BUn 105, cr 1.8. UA noted for 10-30 WBC with 20- 30 epithelial cells. UC with multiple organisms not identified. BC with no growth to date. CXR shows no acute findings. He has changes c/w prior prior granulomatous disease. He has a h/o UTi with Pseudomonas aeruginosa, Klebsiella pneumoniae, E faecalis. He was managed for hyperosmolar hyperglycemic state. He was started empirically on Meropenem and Daptomycin for possible UTI thought to have triggered this. ID consulted for UTI. He denies urinary symptoms,abdominal or back pain, nausea, vomiting or chills. He is not a reliable historian, but tells me he came in with left leg pain and points to his left ankle wound. He has chronic knee pain, but states his knees are not bothering him at this time. Micro BC 08/21 Sterile UC 08/21 three types of organisms present, all high counts., now corrected to GNR lateral ankle bone biopsy 08/29 pending ABX Dapto 08/21- ongoing Meropenem08/21-08/27 Ceftazidime 08/27-ongoing 1. Hyperosmolar hyperglycemic state 2. Painful Left lateral ankle wound with early osteomyelitis 3. Left great toe foot chronic appearing wound 4. Asymptomatic pyuria: denies urine symptoms 5. History of PSA ( S ceftaz, I cefepime)and E faecalis and Klebsiella in urine 6. RLQ ileal conduit and urostomy 7. History Bl knee pain sp injections. He denies urinary symptoms, but is a poor historian, UC initially reported with mixed org. On 08/27 corrected to GNR. ID/susc pending. He has already received 7 days of broad abx: Meropenem --> ceftaz and daptomycin. He has no history of ESBL org. meropenem changed to Ceftaz on 08/27 based on all prior PSA susceptibility. He has likely received enough abx for presumed UTI with out bacteremia He complains of increasing Left ankle pain at site of wound. The area is warm and tender: Concern for acute on chronic ankle site infection prompted xray of foot which shows mild lateral cortical irregularity of the distal fibula suspicious for osteomyelitis. On 06/04 he underwent I+D of left lateral malleolus with application of skin graft by Dr. Fuchs. OR cultures grew Pseudomonas aeruginosa, without resistance. Imaging at the time was not consistent with osteomyelitis, however ID suspected deep seated infection with tenosynovitis so it was recommended that he be treated with a 3 week course of IV Cefepime through 06/25/22. MRI foot shows findings c/f L lateral malleolus osteo. Recommendations: -Urine sample on 08/21 initially reported with multiple species, now corrected to GNR, follow up GNR ID and sensi. Doubt UTI. I feel that his lateral ankle wound infection is likely driving his presentation. -Left foot xray and MRI findings suspicious for osteo, , he underwent irrigation and Debridement of Left Lateral Ankle, Irrigation and debridement with Tenosynovectomy peroneus longus and peroneus brevis tendons,and Debridement with Bone Biopsy Lateral Malleolus with Application of Vancomycin Powder . I anticipate a minimum of 6 weeks of pathogen targeted therapy from OR date. He has been on abx since 08/21 so cx may be sterile, but may path likely positive -Continue Ceftazidime 2 g iv q12 ( will cover prior PSA strains and Klebsiella in urine cx as well as PSA strain fromankdle wound cx in 05/29) -Will continue Daptomycin 4mg iv for now pending bone cx results. If bone for a gpc will have to increase dose for bone infection. ID will continue to follow. Daria Rand MD, MPH Infectious Disease ID [facility], ID Division Call [phone] with questions Admission and Anticipated Discharge Date Admission Date: August 21, 2022 Subjective This patient recommendation is based on a telemedicine consult request which was completed asynchronously through chart review and information provided by the [facility] physician. The patient was not seen or examined today. The evaluation is consultative in nature and all patient care and treatment decisions can either be accepted or rejected by the patient's primary hospital-based treating physician using their own independent medical judgment for their patient. Time Spent Reviewing Chart: 11 - 20 minutes He underwent Irrigation and Debridement of the left ankle ulcer Tenosynovectomy peroneus longus and peroneus brevis tendons and Debridement with Bone Biopsy of the lateral Malleolus Results & Data Vital Signs (Past 12 Hours) Vital Signs Temp Pulse Pulse Resp BP BP Pulse Ox 08/29/22 15:38 36.5 C 78 19 115/62 97 08/29/22 11:26 83 19 121/67 97 08/29/22 10:52 36.4 C L 77 20 123/70 99 08/29/22 10:35 36.4 C L 79 22 104/54 L 97 08/29/22 10:25 83 20 104/61 98 08/29/22 10:15 80 16 108/63 100 08/29/22 10:08 36 C L 87 14 114/70 98 08/29/22 07:34 36.8 C 77 16 107/50 L 95 O2 Del Method O2 Flow Rate 08/29/22 15:38 Room Air 08/29/22 11:26 Room Air 08/29/22 10:52 Room Air 08/29/22 10:35 Room Air 08/29/22 10:25 Room Air 08/29/22 10:15 Room Air 08/29/22 10:08 Oxymask 6 08/29/22 07:34 Room Air Laboratory Results Laboratory Results - last 48 hr 08/27/22 08/28/22 08/28/22 20:07 05:39 05:39 WBC 6.44 RBC 3.23 L Hgb 10.6 L Hct 31.3 L MCV 96.9 MCH 32.8 MCHC 33.9 RDW Std Deviation 51.0 H RDW Coeff of Tasneem 14.6 H Plt Count 151 MPV 11.0 Immature Gran % (Auto) Neut % (Auto) Lymph % (Auto) [place] % (Auto) Eos % (Auto) Baso % (Auto) Neut # (Auto) Lymph # (Auto) [place] # (Auto) Eos # (Auto) Baso # (Auto) Immature Gran # (Auto) Sodium 138 Potassium 3.4 L Chloride 114 H Carbon Dioxide 18 L Anion Gap 6 BUN 72 H Creatinine 1.59 H Est Cr Clr Drug Dosing 31.5 Est GFR ( Amer) 44.9 Est GFR (Non-Af Amer) 38.7 BUN/Creatinine Ratio 45.3 H Glucose 92 POC Glucose 184 H Calcium 8.6 Phosphorus 3.5 Total Creatine Kinase 45 Troponin I High Sens C-Reactive Protein 1.94 H Albumin 2.8 L 08/28/22 08/28/22 08/28/22 07:26 09:43 10:52 WBC RBC Hgb Hct MCV MCH MCHC RDW Std Deviation RDW Coeff of Tasneem Plt Count MPV Immature Gran % (Auto) Neut % (Auto) Lymph % (Auto) [place] % (Auto) Eos % (Auto) Baso % (Auto) Neut # (Auto) Lymph # (Auto) [place] # (Auto) Eos # (Auto) Baso # (Auto) Immature Gran # (Auto) Sodium Potassium Chloride Carbon Dioxide Anion Gap BUN Creatinine Est Cr Clr Drug Dosing Est GFR ( Amer) Est GFR (Non-Af Amer) BUN/Creatinine Ratio Glucose POC Glucose 103 H 151 H Calcium Phosphorus Total Creatine Kinase Troponin I High Sens 24.0 H C-Reactive Protein Albumin 08/28/22 08/28/22 08/28/22 14:09 16:40 20:19 WBC RBC Hgb Hct MCV MCH MCHC RDW Std Deviation RDW Coeff of Tasneem Plt Count MPV Immature Gran % (Auto) Neut % (Auto) Lymph % (Auto) [place] % (Auto) Eos % (Auto) Baso % (Auto) Neut # (Auto) Lymph # (Auto) [place] # (Auto) Eos # (Auto) Baso # (Auto) Immature Gran # (Auto) Sodium Potassium Chloride Carbon Dioxide Anion Gap BUN Creatinine Est Cr Clr Drug Dosing Est GFR ( Amer) Est GFR (Non-Af Amer) BUN/Creatinine Ratio Glucose POC Glucose 117 H 132 H Calcium Phosphorus Total Creatine Kinase Troponin I High Sens 19.3 D C-Reactive Protein Albumin 08/29/22 08/29/22 08/29/22 05:36 05:36 06:58 WBC 6.80 RBC 3.18 L Hgb 10.4 L Hct 30.3 L MCV 95.3 MCH 32.7 MCHC 34.3 RDW Std Deviation 50.1 H RDW Coeff of Tasneem 14.4 Plt Count 173 MPV 11.3 Immature Gran % (Auto) 0.4 Neut % (Auto) 80.4 Lymph % (Auto) 12.2 [place] % (Auto) 4.1 Eos % (Auto) 2.5 Baso % (Auto) 0.4 Neut # (Auto) 5.46 Lymph # (Auto) 0.83 L [place] # (Auto) 0.28 Eos # (Auto) 0.17 Baso # (Auto) 0.03 Immature Gran # (Auto) 0.03 Sodium 142 Potassium 3.7 Chloride 116 H Carbon Dioxide 20 L Anion Gap 6 BUN 73 H Creatinine 1.59 H Est Cr Clr Drug Dosing 30.6 Est GFR ( Amer) 44.9 Est GFR (Non-Af Amer) 38.7 BUN/Creatinine Ratio 45.9 H Glucose 67 L POC Glucose 76 Calcium 8.4 L Phosphorus 3.1 Total Creatine Kinase Troponin I High Sens C-Reactive Protein Albumin 2.8 L 08/29/22 08/29/22 08/29/22 08:32 08:34 08:36 WBC RBC Hgb Hct MCV MCH MCHC RDW Std Deviation RDW Coeff of Tasneem Plt Count MPV Immature Gran % (Auto) Neut % (Auto) Lymph % (Auto) [place] % (Auto) Eos % (Auto) Baso % (Auto) Neut # (Auto) Lymph # (Auto) [place] # (Auto) Eos # (Auto) Baso # (Auto) Immature Gran # (Auto) Sodium Potassium Chloride Carbon Dioxide Anion Gap BUN Creatinine Est Cr Clr Drug Dosing Est GFR ( Amer) Est GFR (Non-Af Amer) BUN/Creatinine Ratio Glucose POC Glucose 64 L* 79 71 Calcium Phosphorus Total Creatine Kinase Troponin I High Sens C-Reactive Protein Albumin 08/29/22 08/29/22 08/29/22 09:12 10:10 11:30 WBC RBC Hgb Hct MCV MCH MCHC RDW Std Deviation RDW Coeff of Tasneem Plt Count MPV Immature Gran % (Auto) Neut % (Auto) Lymph % (Auto) [place] % (Auto) Eos % (Auto) Baso % (Auto) Neut # (Auto) Lymph # (Auto) [place] # (Auto) Eos # (Auto) Baso # (Auto) Immature Gran # (Auto) Sodium Potassium Chloride Carbon Dioxide Anion Gap BUN Creatinine Est Cr Clr Drug Dosing Est GFR ( Amer) Est GFR (Non-Af Amer) BUN/Creatinine Ratio Glucose POC Glucose 102 H 97 111 H Calcium Phosphorus Total Creatine Kinase Troponin I High Sens C-Reactive Protein Albumin 08/29/22 16:20 WBC RBC Hgb Hct MCV MCH MCHC RDW Std Deviation RDW Coeff of Tasneem Plt Count MPV Immature Gran % (Auto) Neut % (Auto) Lymph % (Auto) [place] % (Auto) Eos % (Auto) Baso % (Auto) Neut # (Auto) Lymph # (Auto) [place] # (Auto) Eos # (Auto) Baso # (Auto) Immature Gran # (Auto) Sodium Potassium Chloride Carbon Dioxide Anion Gap BUN Creatinine Est Cr Clr Drug Dosing Est GFR ( Amer) Est GFR (Non-Af Amer) BUN/Creatinine Ratio Glucose POC Glucose 192 H Calcium Phosphorus Total Creatine Kinase Troponin I High Sens C-Reactive Protein Albumin Diagnostic Findings Microbiology 08/29/22 09:21 Tissue,Undefined Gram Stain - Final 08/21/22 Unknown Urine,Clean Catch Urine Culture - Preliminary Gram negative bacilli 08/21/22 19:17 Blood Aerobic Blood Culture - Final No growth in Aerobic bottle after 5 days. 08/21/22 19:17 Blood Anaerobic Blood Culture - Final 08/21/22 19:26 Blood Aerobic Blood Culture - Final No growth in Aerobic bottle after 5 days. 08/21/22 19:26 Blood Anaerobic Blood Culture - Final Medications Administered Home Medications Medication Instructions Recorded Confirmed Last Taken coenzyme Q10 100 mg capsule (Co 100 mg PO QAM #30 caps 10/19/18 08/21/22 08/21/22 Q-10) [id number] 5 mg-zeaxanth 1 cap PO QAM 10/19/18 08/21/22 08/21/22 1 mg-bilberry 7.5 mg-herbal capsule (Collexpo Health Formula) acetaminophen 500 mg capsule 500 mg PO Q6H PRN Pain 12/10/20 08/21/22 04/05/22 ascorbate calcium (vitamin C) 500 500 mg PO DAILY 12/10/20 08/21/22 08/21/22 mg tablet apixaban 2.5 mg tablet (Eliquis) 2.5 mg PO BID #180 tabs 02/13/22 08/21/22 08/21/22 08:00 atorvastatin 40 mg tablet (Lipitor) 40 mg PO QAM #90 tabs 03/19/22 08/21/22 08/21/22 coffee extract 50 mg-phosphatidyl 1 tab PO HS 04/06/22 08/21/22 08/20/22 serine 50 mg chewable tablet (Neuriva Original) zinc acetate 50 mg (zinc) capsule 50 mg PO DAILY 04/06/22 08/21/22 08/21/22 linagliptin 5 mg tablet (Tradjenta) 5 mg PO DAILY #90 tabs 04/29/22 08/21/22 08/21/22 polyethylene glycol 3350 17 gram 17 g PO DAILY PRN constipation #30 04/29/22 08/21/22 Unknown oral powder packet (Miralax) ea famotidine 20 mg tablet 20 mg PO QAM #90 tabs 05/07/22 08/21/22 08/21/22 tramadol 50 mg tablet 50 mg PO Q4H PRN severe pain #10 06/13/22 08/21/22 Unknown tabs blood-glucose meter #1 ea 07/23/22 07/23/22 Unknown dapagliflozin propanediol 5 mg 5 mg PO DAILY #90 tabs 07/24/22 08/21/22 08/21/22 tablet (Farxiga) blood sugar diagnostic #100 ea 07/30/22 Unknown lancets 30 gauge (OneTouch Delica #100 ea 08/13/22 Unknown Plus Lancet) cyanocobalamin (vitamin B-12) 2,500 mcg sublingual QAM 08/21/22 08/21/22 2,500 mcg sublingual tablet (Vitamin B-12) Active Medications Generic Name Dose Route Start Last Admin Trade Name Freq PRN Reason Stop Dose Admin Apixaban 2.5 mg 08/21/22 21:00 08/28/22 07:58 Apixaban 2.5 Mg Tab PO 09/20/22 20:59 2.5 mg BID BERE Administration Cyanocobalamin 2,500 mcg 08/22/22 09:00 08/29/22 07:35 Cyanocobalamin (B-12) 500 Mcg Tablet PO 09/21/22 08:59 Not Given QAM BERE Famotidine 20 mg 08/22/22 09:00 08/29/22 07:35 Famotidine 20 Mg Tab PO 09/21/22 08:59 Not Given QAM [facility] Ceftazidime 2,000 mg/ Dextrose 60 mls @ 120 mls/hr 08/27/22 12:00 08/29/22 12:53 IV 09/03/22 11:59 Infused Q12H [facility] Infusion Protocol Daptomycin 275 mg/ Syringe 5.5 mls @ 3.25 mls/min 08/28/22 23:00 08/28/22 23:59 IV 08/31/22 22:59 3.25 mls/min Q24H [facility] Administration Protocol Insulin Aspart 0 units 08/26/22 16:30 08/29/22 12:08 Insulin Aspart Per Unit Charge SC 09/25/22 16:29 Not Given ACHS [facility] Insulin Glargine 5 units 08/29/22 09:00 08/29/22 07:35 Lantus Per Unit Charge SC 09/28/22 08:59 Not Given DAILY BERE Polyethylene Glycol 17 gm 08/28/22 15:17 08/28/22 15:22 Polyethylene (Miralax) 17 Gm Pack PO 09/27/22 15:16 17 gm DAILY PRN Administration Constipation Potassium Chloride 40 meq 08/28/22 09:00 08/29/22 07:35 Potassium Chloride Pwd 20 Meq Pack PO 09/27/22 08:59 Not Given QAM BERE Sodium Bicarbonate 1,300 mg 08/26/22 09:00 08/29/22 07:35 Sodium Bicarbonate 650 Mg Tab PO 09/25/22 08:59 Not Given BID BERE
[2022-08-29] MEDS: ACETAMINOPHEN 325 MG TAB PO PRN (20:16)
[2022-08-29] MEDS: DAPTOmycin 275 MG in SYRINGE 0 ML IV SCH (23:26)
[2022-08-30 07:13] LABS: Basophils # (auto) 0.02 K/uL (0-0.2); Basophils % (auto) 0.4 %; Eosinophils # (auto) 0.11 K/uL (0-0.50); Eosinophils % (auto) 2.2 %; Hematocrit (blood only) 31.4 % (42.0-52.0); Hemoglobin 10.4 g/dl (14.0-18.0); Immature Granulocytes # (auto) 0.03 K/uL (0.01-0.20); Immature Granulocytes % (auto) 0.6 %; Lymphocytes % (auto) 13.8 %; Mean Corpuscular Hemoglobin 32.3 pg (25.0-34.0); Mean Corpuscular Hgb Conc 33.1 g/dL (32.0-36.0); Mean Corpuscular Volume 97.5 fL (80.0-100.0); Mean Platelet Volume 10.6 fL (9.4-12.4); Monocytes % (auto) 3.9 %; Neutrophils # (auto) 4.02 K/uL (1.40-6.50); Neutrophils % (auto) 79.1 %; Platelet Count 171 K/uL (130-400); RDW Coefficient of Variation 14.5 % (11.5-14.5); RDW Standard Deviation 51.6 fL (36.4-46.3); Red Blood Count 3.22 M/uL (4.70-6.10); White Blood Count 5.08 K/ul (4.8-10.8)
[2022-08-30 07:37] LABS: Albumin Level 2.9 gm/dl (3.4-5.0); BUN Creatinine Ratio 41.7 (10-20); Calcium 8.5 mg/dl (8.6-10.3); Creatinine Clr Calc Pharmacy 32.2 ml/min; Est GFR (African American) 47.8 ml/min; Est GFR (Non-African American) 41.2 ml/min; Phosphorus 3.4 mg/dl (2.5-4.9)
[2022-08-30] MEDS: INSULIN ASPART PER UNIT CHARGE SC SCH ×4 (08:31→20:43)
[2022-08-30] MEDS: POTASSIUM CHLORIDE PWD 20 MEQ PACK PO SCH (08:35)
[2022-08-30] MEDS: CYANOCOBALAMIN (B-12) 500 MCG TABLET PO SCH (08:35)
[2022-08-30] MEDS: FAMOTIDINE 20 MG TAB PO SCH (08:35)
[2022-08-30] MEDS: SODIUM BICARBONATE 650 MG TAB PO SCH ×2 (08:36→21:04)
[2022-08-30] MEDS: LANTUS PER UNIT CHARGE SC SCH (08:40)
[2022-08-30] MEDS: ACETAMINOPHEN 325 MG TAB PO PRN ×2 (08:47→21:13)
--- NOTE | 2022-08-30 10:09 | Hospitalist Progress Note ---
Date of Service August 30, 2022 Assessment & Plan (1) Osteomyelitis of ankle: Plan: S/p Debridement tenosynovectomy 08/29/22 Dr Fuchs, also s/p debridement previous admission - MRI 08/27: concern for early osteomyelitis. 2. Mild degenerative disease as described. 3. Possible partial tear involving the distal aspect of the peroneus brevis tendon. -Completed outpatient course of Cefepime in rehab ID consulted. Given past cultures with intermediate sensitivity to cefepime as an recommended for a 6-week course of ceftazidime (or antibiotic directed therapy for 6 weeks from or date this will be October 10) due to early osteomyelitis noted above. Dapto is continued for now pending final surgical culture results, although this will likely be discontinued to pursue ceftazidime monotherapy. -Wound care consulted, infectious diseases following along Surgical culture sent. Ceftazidimedaptomycin continued pending cultures, Ceftazidime 2 g iv q12 ( will cover prior PSA strains and Klebsiella in urine cx as well as PSA strain fromankdle wound cx in 05/29) PT/OT following. Patient would prefer to return home but especially given repeat I&D may require placement (2) Hyperosmolar hyperglycemic state (HHS): Plan: -Ppresented with hyperglycemia of 544, no ketones in his urine, VBG with pH of 7.27. AG WNL, bicarb at 15 -Suspect chronic hyperglycemia driven by underlying infection, acute UTI with additional osteomyelitis as noted above HHS improved 08/23, patient has subsequently been converted to subcutaneous insulin. Was transiently on D5 which was then discontinued Postop BSG 111, adequately controlled (3) Paroxysmal atrial fibrillation: Plan: -Initially noted to be in afib RVR with HR in the low 100's on arrival -Currently stable -Eliquis held evening of 08/28 we will discuss reinstitution of anticoagulation therapy with surgery Some dynamic changes seen with high rate resolved Initial troponin minimally elevated at 24 and then normalized on repeat. EKG changes have normalized. Echo 08/28: EF 60 to 65%, no regional wall motion abnormalities, LV SF normal, compared to 2020 no significant change. Denies history of CHF. Perioperative risk assessment as otherwise noted. (4) UTI (urinary tract infection): Plan: Overall presentation likely caused by osteomyelitis of the ankle. Infected appearing UA with UCx positive for GNB covered as otherwise noticed -Will hold oral antihyperglycemics and statin while on Dapto -Follow urine and blood cultures -Urostomy management ordered - ID following, appreciate recommendations Is with a high risk of contamination due to urostomy and inability to obtain a true clean sample (5) Acute hypernatremia: Plan: Corrected sodium of 158 with severe dehydration on admission, resolved (6) Silent aspiration: Plan: -Long history -Stable on RoomAir today with stable chronic findings on CXR today -Will continue with minced/moist diet with honey thick liquids (7) Dyslipidemia: Plan: -Hold statin while on Daptomycin (8) MGUS (monoclonal gammopathy of unknown significance): Plan: -Has been monitoring outpatient -will monitor in house. Admission and Anticipated Discharge Date Admission Date: August 21, 2022 Subjective Ms. Ruby is pleasantly confused has no real focal complaints or problems has a bandage on his left leg but cannot attest to why it is there upon reminding him that he had recent surgical debridement of a chronic wound he seems to recall these events Physical Exam Physical Exam: Patient was woke from sleep took a little while to reorient has no focal complaints or problems at this time postoperative pain control is good condition Results & Data Results & Data Vital Signs (Past 12 Hours) Vital Signs Temp Pulse Resp BP Pulse Ox O2 Del Method 08/30/22 07:32 97.7 F 86 19 124/68 95 Room Air 08/30/22 04:19 97.9 F 84 20 132/75 95 Room Air 08/29/22 23:16 98.1 F 76 16 119/68 97 Room Air Laboratory Results Reviewed CBC reviewed chemistry reviewed operative report from surgery reviewed infectious disease note from 623 PG Care Time/CCT Total # of Minutes Spent Total Time Spent with Patient: Total time spent is greater than 50% in coordination of care (as documented) at patient's floor/unit and/or counseling patient: Coding Level of Care Code 42810 SUB INP/OBS CARE 3/50MIN Diagnoses Osteomyelitis of ankle M86.9 Hyperosmolar hyperglycemic state (HHS) E11.00 Paroxysmal atrial fibrillation I48.0 UTI (urinary tract infection) N39.0 Acute hypernatremia E87.0 Silent aspiration T17.900A Dyslipidemia E78.5 MGUS (monoclonal gammopathy of unknown significance) D47.2
--- NOTE | 2022-08-30 17:06 | Orthopedic Progress Note ---
Date of Service August 30, 2022 Assessment & Plan (1) Periostitis of ankle: Plan: 1. Chronic left lateral ankle ulceration overlying the lateral malleolus 1.5 cm x 0.4 cm x 1.0 cm extending to the layer of fat and periosteum. Previous surgical irrigation and debridement June 2022. 2. Diabetic ulceration left lateral ankle. 3. Multiple medical comorbidities including paroxysmal atrial fibrillation. 08/30/2022: Begin daily dry dressing changes over Adaptic or iodoform gauze beginning tomorrow (08/31/2022) and continuation of IV antibiotic until at least the time of final resulted culture data and pathology from bone biopsy. Will need to have at least 6 weeks of antibiotic coverage pending data from cultures. 08/27/2022: I had long discussion with patient family member, Mrs. Dacosta, and explained the findings from today's exam and recapped my examination from last evening. At this time I would advocate for MRI with contrast if at all possible to get the best data set regarding the issue of osteitis versus osteomyelitis of the left ankle. I was also in contact with earlier today. Continue with daily dry dressing changes as recommended. Will follow and review MRI results as they are available. 08/26/2022: Features suggesting chronic periostitis at minimum left lateral ankle consistent with previous surgical treatment. 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 To confirm or deny progression of disease would recommend an MRI with contrast ideally, however, understanding that the patient has CKD stage IIIb he may not be a candidate for such a study and would have to instead choose a regular MRI without contrast to be compared with the previous MRI performed in June. Thank you for the opportunity to consult in the care of this patient. 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 He has a bandage on his left ankle. Overall comfortable and eating lunch. Physical Exam Physical Exam: Patient sitting up awake eating lunch and alert. No acute distress. Constitutional: WD/WN, vitals as above Neck: trachea midline, no thyromegaly Musculoskeletal: Dressing to left ankle is clean, dry and intact. No evidence of bleeding or strikethrough. Minimal tenderness. Calves are soft and nontender. Negative Homans' sign. Skin is warm and dry. Lymphatic: no cervical or axillary lymphadenopathy Results & Data Vital Signs (Past 12 Hours) Vital Signs Temp Pulse Resp BP Pulse Ox O2 Del Method 08/30/22 15:09 36.5 C 80 18 106/64 98 Room Air 08/30/22 11:33 36.4 C L 69 18 103/60 91 Room Air 08/30/22 07:32 36.5 C 86 19 124/68 95 Room Air Diagnostic Findings Pending cultures and bone biopsy pathology report.
[2022-08-30] MEDS: DAPTOmycin 275 MG in SYRINGE 0 ML IV SCH (23:07)
[2022-08-31] MEDS: LANTUS PER UNIT CHARGE SC SCH (08:08)
[2022-08-31] MEDS: SODIUM BICARBONATE 650 MG TAB PO SCH ×2 (08:09→21:41)
[2022-08-31] MEDS: CYANOCOBALAMIN (B-12) 500 MCG TABLET PO SCH (08:09)
[2022-08-31] MEDS: INSULIN ASPART PER UNIT CHARGE SC SCH ×4 (08:09→21:40)
[2022-08-31] MEDS: FAMOTIDINE 20 MG TAB PO SCH (08:09)
[2022-08-31] MEDS: POTASSIUM CHLORIDE PWD 20 MEQ PACK PO SCH (08:10)
[2022-08-31 08:13] LABS: Basophils # (auto) 0.02 K/uL (0-0.2); Basophils % (auto) 0.4 %; Eosinophils # (auto) 0.15 K/uL (0-0.50); Eosinophils % (auto) 3.1 %; Hematocrit (blood only) 29.1 % (42.0-52.0); Immature Granulocytes # (auto) 0.02 K/uL (0.01-0.20); Immature Granulocytes % (auto) 0.4 %; Lymphocytes # (auto) 0.75 K/uL (1.2-3.4); Lymphocytes % (auto) 15.3 %; Mean Corpuscular Hemoglobin 33.7 pg (25.0-34.0); Mean Corpuscular Hgb Conc 34.4 g/dL (32.0-36.0); Mean Platelet Volume 10.8 fL (9.4-12.4); Monocytes # (auto) 0.21 K/uL (0.11-0.59); Monocytes % (auto) 4.3 %; Neutrophils # (auto) 3.75 K/uL (1.40-6.50); Neutrophils % (auto) 76.5 %; Platelet Count 190 K/uL (130-400); RDW Coefficient of Variation 14.7 % (11.5-14.5); RDW Standard Deviation 51.3 fL (36.4-46.3); Red Blood Count 2.97 M/uL (4.70-6.10)
[2022-08-31 08:25] LABS: BUN Creatinine Ratio 36.5 (10-20); Calcium 8.4 mg/dl (8.6-10.3); Creatinine Clr Calc Pharmacy 32.1 ml/min; Est GFR (African American) 45.9 ml/min; Est GFR (Non-African American) 39.6 ml/min; Potassium 3.8 mmol/L (3.5-5.1)
--- NOTE | 2022-08-31 17:00 | Orthopedic Progress Note ---
Date of Service August 31, 2022 Assessment & Plan (1) Periostitis of ankle: Plan: 1. Chronic left lateral ankle ulceration overlying the lateral malleolus 1.5 cm x 0.5 cm x 1.0 cm extending to the layer of fat and periosteum. Previous surgical irrigation and debridement June 2022. Second surgical irrigation and debridement including bone biopsy performed 08/29/2022. 2. Diabetic ulceration left lateral ankle. 3. Multiple medical comorbidities including paroxysmal atrial fibrillation. 08/31/2022: Continue daily dry dressing changes over Adaptic continuing. Continue IV antibiotic coverage until final results of culture data and pathology from bone biopsy. Recommend at least 6 weeks of sensitivity managed antibiotic coverage. Weightbearing as tolerated for transfers and bathroom privileges left lower extremity with supervision. Follow-up with Dr. Fuchs at [facility] in 2 to 3 weeks. Call for appointment . Orthopedics to sign off at this time until outpatient follow-up. Please notify if further evaluation required. Thank you. 08/30/2022: Begin daily dry dressing changes over Adaptic or iodoform gauze beginning tomorrow (08/31/2022) and continuation of IV antibiotic until at least the time of final resulted culture data and pathology from bone biopsy. Will need to have at least 6 weeks of antibiotic coverage pending data from cultures. 08/27/2022: I had long discussion with patient family member, Mrs. Dacosta, and explained the findings from today's exam and recapped my examination from last evening. At this time I would advocate for MRI with contrast if at all possible to get the best data set regarding the issue of osteitis versus osteomyelitis of the left ankle. I was also in contact with earlier today. Continue with daily dry dressing changes as recommended. Will follow and review MRI results as they are available. 08/26/2022: Features suggesting chronic periostitis at minimum left lateral ankle consistent with previous surgical treatment. 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 To confirm or deny progression of disease would recommend an MRI with contrast ideally, however, understanding that the patient has CKD stage IIIb he may not be a candidate for such a study and would have to instead choose a regular MRI without contrast to be compared with the previous MRI performed in June. Thank you for the opportunity to consult in the care of this patient. 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 He has a bandage on his left ankle. Overall comfortable and eating. Physical Exam Physical Exam: Patient sitting up awake eating lunch and alert. No acute distress. Constitutional: WD/WN, vitals as above Neck: trachea midline, no thyromegaly Musculoskeletal: Left ankle dressing in place. Minimal drainage. No evidence of foul odor. No purulence. Sutures intact. No evidence of periwound erythema or streaking. Distal neurosensory exam stable and unchanged. Pedal pulses palpable 2/4 bilateral. Lymphatic: no cervical or axillary lymphadenopathy Results & Data Vital Signs (Past 12 Hours) Vital Signs Temp Pulse Resp BP Pulse Ox O2 Del Method 08/31/22 11:33 36.6 C 73 19 104/51 L 98 Room Air 08/31/22 07:45 36.7 C 82 19 106/57 L 92 Room Air Laboratory Results Staph species present. Final sensitivities in process. Pathology assessment pending.
--- NOTE | 2022-08-31 17:31 | Hospitalist Progress Note ---
Date of Service August 31, 2022 Assessment & Plan (1) Osteomyelitis of ankle: Plan: S/p Debridement tenosynovectomy 08/29/22 Dr Fuchs, also s/p debridement previous admission - MRI 08/27: concern for early osteomyelitis. 2. Mild degenerative disease as described. 3. Possible partial tear involving the distal aspect of the peroneus brevis tendon. -Completed outpatient course of Cefepime in rehab ID consulted. Given past cultures with intermediate sensitivity to cefepime as an recommended for a 6-week course of ceftazidime (or antibiotic directed therapy for 6 weeks from or date this will be October 10) due to early osteomyelitis noted above. Dapto is continued for now pending final surgical culture results, although this will likely be discontinued to pursue ceftazidime monotherapy. -Wound care consulted, infectious diseases following along Surgical culture sent. Ceftazidimedaptomycin continued intraoperative cultures culture shows few staph species, Ceftazidime 2 g iv q12 ( will cover prior PSA strains and Klebsiella in urine cx as well as PSA strain fromankdle wound cx in 05/29) PT/OT following. Patient would prefer to return home but especially given repeat I&D may require placement Since intraoperative wound culture showing staph species we will discuss with infectious disease upon their return with me to continue gram-positive coverage and daptomycin or would consider using other agents once sensitivities result such as cefazolin or nafcillin (2) Hyperosmolar hyperglycemic state (HHS): Plan: -Ppresented with hyperglycemia of 544, no ketones in his urine, VBG with pH of 7.27. AG WNL, bicarb at 15 -Suspect chronic hyperglycemia driven by underlying infection, acute UTI with additional osteomyelitis as noted above HHS improved 08/23, patient has subsequently been converted to subcutaneous insulin. Was transiently on D5 which was then discontinued Postop BSG 111, adequately controlled (3) Paroxysmal atrial fibrillation: Plan: -Initially noted to be in afib RVR with HR in the low 100's on arrival -Currently stable -Eliquis held evening of 08/28 we will discuss reinstitution of anticoagulation therapy with surgery Some dynamic changes seen with high rate resolved Initial troponin minimally elevated at 24 and then normalized on repeat. EKG changes have normalized. Echo 08/28: EF 60 to 65%, no regional wall motion abnormalities, LV SF normal, compared to 2020 no significant change. Denies history of CHF. Perioperative risk assessment as otherwise noted. (4) UTI (urinary tract infection): Plan: Overall presentation likely caused by osteomyelitis of the ankle. Infected appearing UA with UCx positive for GNB covered as otherwise noticed -Will hold oral antihyperglycemics and statin while on Dapto -Follow urine and blood cultures -Urostomy management ordered - ID following, appreciate recommendations Is with a high risk of contamination due to urostomy and inability to obtain a true clean sample (5) Acute hypernatremia: Plan: Corrected sodium of 158 with severe dehydration on admission, resolved (6) Silent aspiration: Plan: -Long history -Stable on RoomAir today with stable chronic findings on CXR today -Will continue with minced/moist diet with honey thick liquids (7) Dyslipidemia: Plan: -Hold statin while on Daptomycin (8) MGUS (monoclonal gammopathy of unknown significance): Plan: -Has been monitoring outpatient -will monitor in house. Admission and Anticipated Discharge Date Admission Date: August 21, 2022 Subjective Patient is no complaints or problems does not recall the surgery he had did discuss the possibility he may benefit from rehab is updated yesterday Physical Exam Physical Exam: Patient is oriented x2 Cardiac exam is regular complaining of constipation and abdominal exam is benign Results & Data Results & Data Vital Signs (Past 12 Hours) Vital Signs Temp Pulse Resp BP Pulse Ox O2 Del Method 08/31/22 11:33 97.9 F 73 19 104/51 L 98 Room Air 08/31/22 07:45 98.1 F 82 19 106/57 L 92 Room Air Laboratory Results Reviewed CBC reviewed chemistry PG Care Time/CCT Total # of Minutes Spent Total Time Spent with Patient: Total time spent is greater than 50% in coordination of care (as documented) at patient's floor/unit and/or counseling patient: Coding Level of Care Code 78221 SUB INP/OBS CARE 3/50MIN Diagnoses Osteomyelitis of ankle M86.9 Hyperosmolar hyperglycemic state (HHS) E11.00 Paroxysmal atrial fibrillation I48.0 UTI (urinary tract infection) N39.0 Acute hypernatremia E87.0 Silent aspiration T17.900A Dyslipidemia E78.5 MGUS (monoclonal gammopathy of unknown significance) D47.2
[2022-08-31] MEDS ORDERED: SENNA 8.6 MG TAB PO ONE (17:45)
[2022-08-31] MEDS: ACETAMINOPHEN 325 MG TAB PO PRN (19:59)
[2022-08-31] MEDS: APIXABAN 2.5 MG TAB PO SCH (21:41)
[2022-09-01] MEDS: FAMOTIDINE 20 MG TAB PO SCH (09:19)
[2022-09-01] MEDS: CYANOCOBALAMIN (B-12) 500 MCG TABLET PO SCH (09:19)
[2022-09-01] MEDS: POTASSIUM CHLORIDE PWD 20 MEQ PACK PO SCH (09:19)
[2022-09-01] MEDS: SENNA 8.6 MG TAB PO SCH (09:20)
[2022-09-01] MEDS: SODIUM BICARBONATE 650 MG TAB PO SCH ×2 (09:20→20:43)
[2022-09-01] MEDS: LANTUS PER UNIT CHARGE SC SCH (09:22)
[2022-09-01] MEDS: INSULIN ASPART PER UNIT CHARGE SC SCH ×4 (09:22→21:06)
[2022-09-01] MEDS: APIXABAN 2.5 MG TAB PO SCH ×2 (10:40→20:42)
--- NOTE | 2022-09-01 12:43 | Infectious Disease Progress Nt ---
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 R TMP/SMX), low counts of probable skin shellie 08/21 UCx: >100K Pseudomonas aeruginosa (I pip-tazo. Otherwise S), high counts of other mixed shellie 08/21 BCx x2: NG 07/23 UCx: E faecalis, Pseudomonas aeruginosa (I cefepime, I pip-tazo) 06/04 L lateral ankle ulcer cx: Pseudomonas aeruginosa (2 types), low counts of probable skin shellie Path: 08/29 L lateral malleolus biopsy: pending ABX Ceftazidime 08/27 - 09/01 Dapto 08/21 - 08/31 Meropenem 08/21 - 08/27, 09/01 - present Problems: #Osteomyelitis of L lateral ankle #L great toe chronic appearing wound #Asymptomatic pyuria #History of Pseudomonas (I cefepime, pip-tazo), E faecalis, Klebsiella in urine #RLQ ileal conduit and urostomy #DM 86-year old male with pmh of CKD, recurrent UTI, urothelial carcinoma of the bladder s/p cystectomy and ileal conduit, colon cancer s/p subtotal colectomy, diabetes, atrial fibrillation on Eliquis, chronic L lateral ankle ulcer, who presented on 08/21 with increased generalized weakness, found to have osteomyelitis of L lateral ankle, s/p I&D with tenosynovectomy. Of note, he had recently undergoing I&D of L lateral malleolus with application of skin graft on 06/04, with OR cultures growing Pseudomonas, treated with cefepime x 3 weeks through 06/25/22 for tenosynovitis of L ankle. On presentation this time, VSS without leukocytosis. UA with 10-30 WBCs and 20-30 epis. UCx grew >100K Pseud omonas and high counts of other mixed shellie. BCx NG. CXR shows no acute findings. He has changes c/w prior prior granulomatous disease. He has a h/o UCx growing Pseudomonas aeruginosa, Klebsiella pneumoniae, E faecalis. He was treated for HHS, and started empirically on Meropenem and Daptomycin for possible UTI. ID was consulted on 08/26 for UTI. Pt denied urinary symptoms, abd or back pain, N/V, chills. He is a limited historian, but reported he came in with L ankle pain. The meropenem was changed to ceftazidime on 08/27 based on PsA susceptibilities. He has received >7 days of broad spectrum antibiotics for possible UTI, although it seems less like that he had a true UTI--the UCx likely represents colonization, given his history of ileal conduit. As for his L ankle, an MRI showed concern for early osteomyelitis of the L lateral malleolus, bone marrow edema involving distal aspect of fibula. On 08/29, he underwent I&D of L lateral ankle, tenosynovectomy peroneus longus and peroneus brevis tendons, bone biopsy of L lateral malleolus. Operative note commented on a region of softness of the lateral malleolus, consistent with early osteomyelitis. OR culture grew MSSA. Discussion: Would treat with 6 weeks of IV antibiotics for osteomyelitis. Must cover MSSA, as it grew from OR culture this admission. OR culture from 06/04 grew Pseudomonas (two types) and low counts of probable skin shellie. Uncertain whether the Pseudomonas needs to be covered at this time as it did not grow in 08/29 OR culture, but of note the pt had been on meropenem/ceftazidime since 08/21, so this could have decreased the culture yield. The 06/04 operative note suggests that the culture was obtained from deep within the L ankle ulceration, and debridement included periosteum. To be conservative, would cover Pseudomonas as well. The 06/04 OR culture grew two types of Pseudomonas aeruginosa, although susceptibilities were only run on 1 (pansensitive). Pt does have prior history of Pseudomonas growing from multiple UCx showing variable susceptibility patterns (I pip-tazo, sometimes I/S cefepime with borderline JENI, borderline MICs for meropenem). Given the variable Pseudomonas susceptibility patterns, would favor meropenem, which would cover both Pseudomonas and MSSA. Recommendations: -Stopped ceftazidime (has poor MSSA coverage). Daptomycin already discontinued yesterday -Started meropenem 1 g IV q12h to cover both Pseudomonas and MSSA (see discussion above). Dosing discussed with [facility] pharmacist. If CrCl improves significantly, may need to increase to q8h -Would treat for 6 weeks from 08/29 - 10/09 -Will need PICC placement for outpatient IV antibiotics -Check weekly CBC with diff, CMP to monitor for toxicity. Send results to monitoring provider Will sign off. Please page [facility] Call Center with further questions. Admission and Anticipated Discharge Date Admission Date: August 21, 2022 Subjective This patient recommendation is based on a telemedicine consult request which was completed asynchronously through chart review and information provided by the primary physician. The patient was not seen or examined today. The evaluation is consultative in nature and all patient care and treatment decisions can either be accepted or rejected by the patient's primary hospital-based treating physician using their own independent medical judgment for their patient. Time Spent Reviewing Chart: 31+ minutes Pt not seen No labs Dapto discontinued yesterday Continues on ceftaz OR culture growing MSSA Review of System Pt was not seen Physical Exam Physical Exam: Pt was not seen Results & Data Vital Signs (Past 12 Hours) Vital Signs Temp Pulse Resp BP Pulse Ox O2 Del Method 09/01/22 09:00 Room Air 09/01/22 08:04 36.6 C 82 16 143/78 H 96 Room Air Medications Administered Current Inpatient Medications Acetaminophen (Acetaminophen 325 Mg Tab) 650 mg PO Q4H PRN PRN Reason: pain/fever Stop: 09/22/22 13:56 Last Admin: 08/31/22 19:59 Dose: 650 mg Apixaban (Apixaban 2.5 Mg Tab) 2.5 mg PO BID BERE Stop: 09/20/22 20:59 Last Admin: 09/01/22 10:40 Dose: 2.5 mg Cyanocobalamin (Cyanocobalamin (B-12) 500 Mcg Tablet) 2,500 mcg PO QAM BERE Stop: 09/21/22 08:59 Last Admin: 09/01/22 09:19 Dose: 2,500 mcg Dextrose (Dextrose 50% 50 Ml Syringe) 25 - 50 ml IV UD PRN; Protocol PRN Reason: Hypoglycemia Protocol Stop: 09/20/22 17:15 Famotidine (Famotidine 20 Mg Tab) 20 mg PO QAM BERE Stop: 09/21/22 08:59 Last Admin: 09/01/22 09:19 Dose: 20 mg Glucagon (Glucagon For Inj 1 Mg Vial) 1 mg SQ UD PRN; Protocol PRN Reason: Hypoglycemia Protocol Stop: 09/20/22 17:15 Glucose (Glucose 40% Gel 15 Gm Tube) 15 - 30 gm PO UD PRN; Protocol PRN Reason: Hypoglycemia Protocol Stop: 09/20/22 17:15 Glucose (Glucose 10 Tab/Tube) 4 - 8 tab PO UD PRN; Protocol PRN Reason: Hypoglycemia Treatment Stop: 09/20/22 17:15 Ceftazidime 2,000 mg/ Dextrose 60 mls @ 120 mls/hr IV Q12H [facility]; Protocol Stop: 09/03/22 11:59 Last Infusion: 09/01/22 00:46 Dose: Infused Insulin Aspart (Insulin Aspart Per Unit Charge) 0 units SC ACHS [facility] Stop: 09/25/22 16:29 Last Admin: 09/01/22 09:22 Dose: 5 units Insulin Glargine (Lantus Per Unit Charge) 5 units SC DAILY [facility] Stop: 09/28/22 08:59 Last Admin: 09/01/22 09:22 Dose: 5 units Miscellaneous (Carbohydrates For Hypoglycemia ) 15 - 30 gm PO UD PRN PRN Reason: Hypoglycemia Protocol Stop: 09/20/22 17:15 Miscellaneous Information (Pharmacy Glycemic Mgmt Consult) 1 each N/A UD PRN; Protocol PRN Reason: Consult Stop: 09/21/22 08:46 Polyethylene Glycol (Polyethylene (Miralax) 17 Gm Pack) 17 gm PO DAILY PRN PRN Reason: Constipation Stop: 09/27/22 15:16 Last Admin: 08/28/22 15:22 Dose: 17 gm Potassium Chloride (Potassium Chloride Pwd 20 Meq Pack) 40 meq PO QAM [facility] Stop: 09/27/22 08:59 Last Admin: 09/01/22 09:19 Dose: 40 meq Sennosides (Senna 8.6 Mg Tab) 8.6 mg PO QAM [facility] Stop: 10/01/22 08:59 Last Admin: 09/01/22 09:20 Dose: 8.6 mg Sodium Bicarbonate (Sodium Bicarbonate 650 Mg Tab) 1,300 mg PO BID [facility] Stop: 09/25/22 08:59 Last Admin: 09/01/22 09:20 Dose: 1,300 mg
--- NOTE | 2022-09-01 13:52 | Pharmacy Report ---
Pharmacy Glycemic Short Note 2 - Date of Service September 01, 2022 - Glycemic Short BSG Results (Last 24 hours): 08/31/22 08/31/22 09/01/22 16:17 20:20 07:40 POC Glucose 122 H 260 H 136 H 09/01/22 11:46 POC Glucose 231 H OUTPATIENT ANTIDIABETIC REGIMEN: * Farxiga 5 mg PO daily -- consider discontinuing therapy d/t recurrent UTI's * Tradjenta 5 mg PO daily * HbA1c = 9.4% (07/23/22) ASSESSMENT: 09/01/22 * Patient received 23 units of insulin yesterday- 5 units of basal and 18 units of bolus. * BSGs yesterday were [phone] mg/dL. * BSGs today are 136-231 mg/dL. * Continue lantus as fasting within goal range. * Tighten CR since BSG trending up significantly. 08/29/22: * Pt was slightly hypoglycemic this morning (BSG 67mg/dL on lab draw), so Lantus was reduced to once daily this morning. * No further changes at this time. 08/28/22: * BSGs yesterday were [phone] mg/dL. Patient received 29 units of insulin (12 units of basal and 17 units of bolus). * Fasting today is 103 mg/dL. Decrease basal to 10 units (5 units BID). * Spoke with physician - dextrose fluids discontinued today. Patient continues on daptomycin and ceftazidime. * Continue Novolog as BSGs relatively stable. 08/26/22: * Patient received total of 21 units of insulin yesterday, of which 12 units were basal insulin * Fasting BSG 124 mg/dL - continue with same basal, will spit dose equally BID * Loosened CR at breakfast as concerns for BSG trending down at lunch 08/24/22: * BSGs noticeably improved yesterday, basal insulin reduced in light of fasting BSG of 94 mg/dL and patient not eating * Received 11 units of insulin yesterday (9 units of basal and 2 units of bolus) * D5W @80 mL/hr ordered by nephrology today 08/22/22: * 86 y/o M admitted for HHS last night. IV fluids and insulin drip was started on him yesterday. * BSGs trended down overnight and insulin drip rate was turned off this morning. * Patient is currently getting Dextrose in IV fluids running at 150 ml/hr which will contribute to elevated BSGs. Per Nephro, continue Dextrose. * He is also ordered a diet. * Patient is known to glycemic service from past admissions. Basal insulin 12 units once daily has worked well, therefore will continue the same. * Novolog parameters chosen based on previous admissions also. PLAN FOR INPATIENT GLYCEMIC CONTROL: * Hold outpatient oral diabetes medications * Basal insulin * Lantus 5 units SC once daily * Bolus insulin * NovoLog per scale ACHS or Q6hrs while NPO * Goal Range: Low 110 mg/dL - High 150 mg/dL * Correction Factor: 45 mg/dL/unit * Nutritional / Prandial insulin per carb ratio of 1 unit per 10 grams CHO consumed
[2022-09-01] MEDS: MEROPENEM 1,000 MG in SYRINGE 0 ML IV SCH (16:51)
--- NOTE | 2022-09-01 16:51 | Hospitalist Progress Note ---
Date of Service September 01, 2022 Assessment & Plan (1) Osteomyelitis of ankle: Plan: S/p Debridement tenosynovectomy 08/29/22 Dr Fuchs, also s/p debridement previous admission - MRI 08/27: concern for early osteomyelitis. 2. Mild degenerative disease as described. 3. Possible partial tear involving the distal aspect of the peroneus brevis tendon. -Completed outpatient course of Cefepime in rehab ID consulted. Given past cultures with intermediate sensitivity to cefepime as an recommended for a 6-week course of ceftazidime (or antibiotic directed therapy for 6 weeks from or date this will be October 10) due to early osteomyelitis noted above. Dapto is continued for now pending final surgical culture results, although this will likely be discontinued to pursue ceftazidime monotherapy. -Wound care consulted, infectious diseases following along Surgical culture grew MSSA. Changed to meropenem Follow renal function if creatinine clearance improves change dosing to Q8 will need PICC line placement PT/OT following. Patient would prefer to return home but especially given repeat I&D may require placement Infectious disease recommendations:Would treat with 6 weeks of IV antibiotics for osteomyelitis. Must cover MSSA, as it grew from OR culture this admission. OR culture from 06/04 grew Pseudomonas (two types) and low counts of probable skin shellie. Uncertain whether the Pseudomonas needs to be covered at this time as it did not grow in 08/29 OR culture, but of note the pt had been on meropenem/ceftazidime since 08/21, so this could have decreased the culture yield. The 06/04 operative note suggests that the culture was obtained from deep within the L ankle ulceration, and debridement included periosteum. To be conservative, would cover Pseudomonas as well. The 06/04 OR culture grew two types of Pseudomonas aeruginosa, although susceptibilities were only run on 1 (pansensitive). Pt does have prior history of Pseudomonas growing from multiple UCx showing variable susceptibility patterns (I pip-tazo, sometimes I/S cefepime with borderline JENI, borderline MICs for meropenem). Given the variable Pseudomonas susceptibility patterns, would favor meropenem, which would cover both Pseudomonas and MSSA. Recommending 6 weeks of therapy last dose October 09 (2) Hyperosmolar hyperglycemic state (HHS): Plan: -Ppresented with hyperglycemia of 544, no ketones in his urine, VBG with pH of 7.27. AG WNL, bicarb at 15 -Suspect chronic hyperglycemia driven by underlying infection, acute UTI with additional osteomyelitis as noted above HHS improved 08/23, patient has subsequently been converted to subcutaneous insulin. Was transiently on D5 which was then discontinued Postop BSG 111, adequately controlled (3) Paroxysmal atrial fibrillation: Plan: -Initially noted to be in afib RVR with HR in the low 100's on arrival -Currently stable -Eliquis held evening of 08/28 we will discuss reinstitution of anticoagulation therapy with surgery Some dynamic changes seen with high rate resolved Initial troponin minimally elevated at 24 and then normalized on repeat. EKG changes have normalized. Echo 08/28: EF 60 to 65%, no regional wall motion abnormalities, LV SF normal, compared to 2020 no significant change. Denies history of CHF. Perioperative risk assessment as otherwise noted. (4) UTI (urinary tract infection): Plan: Overall presentation likely caused by osteomyelitis of the ankle. Infected appearing UA with UCx positive for GNB covered as otherwise noticed -Will hold oral antihyperglycemics and statin while on Dapto -Follow urine and blood cultures -Urostomy management ordered - ID following, appreciate recommendations Is with a high risk of contamination due to urostomy and inability to obtain a true clean sample (5) Acute hypernatremia: Plan: Corrected sodium of 158 with severe dehydration on admission, resolved (6) Silent aspiration: Plan: -Long history -Stable on RoomAir today with stable chronic findings on CXR today -Will continue with minced/moist diet with honey thick liquids (7) Dyslipidemia: Plan: -Hold statin while on Daptomycin (8) MGUS (monoclonal gammopathy of unknown significance): Plan: -Has been monitoring outpatient -will monitor in house. Admission and Anticipated Discharge Date Admission Date: August 21, 2022 Subjective Patient seen in the company of his . Patient also was seen ambulating hallway with occupational therapy. He is allowed weightbearing on his foot per orthopedic notes. Discussed case with infectious disease reimbursement consultant recommending 6 weeks of therapy last dose being October 09 this will be in the form of meropenem 1 g IV every 12 to cover both Pseudomonas and MSSA watching renal function and if creatinine improves may consider increasing dose frequency to every 8 hours. Patient will require PICC line placement. Family is aware and concerned given his medical needs he may benefit from subacute rehab Physical Exam Physical Exam: Patient is oriented x2 Cardiac exam is regular complaining of constipation and abdominal exam is benign Foot is dressed ambulation was deliberate and stooped Results & Data Results & Data Vital Signs (Past 12 Hours) Vital Signs Temp Pulse Resp BP Pulse Ox O2 Del Method 09/01/22 15:51 97.7 F 64 16 131/73 97 Room Air 09/01/22 09:00 Room Air 09/01/22 08:04 97.9 F 82 16 143/78 H 96 Room Air PG Care Time/CCT Total # of Minutes Spent Total Time Spent with Patient: Total time spent is greater than 50% in coordination of care (as documented) at patient's floor/unit and/or counseling patient: Coding Level of Care Code 01484 SUB INP/OBS CARE 2/35MIN Diagnoses Osteomyelitis of ankle M86.9 Hyperosmolar hyperglycemic state (HHS) E11.00 Paroxysmal atrial fibrillation I48.0 UTI (urinary tract infection) N39.0 Acute hypernatremia E87.0 Silent aspiration T17.900A Dyslipidemia E78.5 MGUS (monoclonal gammopathy of unknown significance) D47.2
[2022-09-02] MEDS: MEROPENEM 1,000 MG in SYRINGE 0 ML IV SCH ×2 (04:33→18:17)
--- NOTE | 2022-09-02 08:25 | Hospitalist Progress Note ---
Date of Service September 02, 2022 Assessment & Plan (1) Osteomyelitis of ankle: Plan: S/p Debridement tenosynovectomy 08/29/22 Dr Fuchs, - MRI 08/27: concern for early osteomyelitis. 2. Mild degenerative disease as described. 3. Possible partial tear involving the distal aspect of the peroneus brevis tendon. ID consulted. Given past cultures with intermediate sensitivity to cefepime, recommended for a 6-week course of Meropenem due to early osteomyelitis noted above. If renal function improved increase dose frequency -Wound care consulted, infectious diseases following along Infectious disease recommendations:Would treat with 6 weeks of IV antibiotics for osteomyelitis. Must cover MSSA, as it grew from OR culture this admission. OR culture from 06/04 grew Pseudomonas (two types) and low counts of probable skin shellie. Uncertain whether the Pseudomonas needs to be covered at this time as it did not grow in 08/29 OR culture, but of note the pt had been on meropenem/ceftazidime since 08/21, so this could have decreased the culture yield. The 06/04 operative note suggests that the culture was obtained from deep within the L ankle ulceration, and debridement included periosteum. To be conservative, would cover Pseudomonas as well. The 06/04 OR culture grew two types of Pseudomonas aeruginosa, although susceptibilities were only run on 1 (pansensitive). Pt does have prior history of Pseudomonas growing from multiple UCx showing variable susceptibility patterns (I pip-tazo, sometimes I/S cefepime with borderline JENI, borderline MICs for meropenem). Given the variable Pseudomonas susceptibility patterns, would favor meropenem, which would cover both Pseudomonas and MSSA. Recommending 6 weeks of therapy last dose October 09 (2) Hyperosmolar hyperglycemic state (HHS): Plan: -Presented with hyperglycemia of 544, no ketones in his urine, VBG with pH of 7.27. AG WNL, bicarb at 15 -Suspect chronic hyperglycemia driven by underlying infection HHS improved 08/23, discussion with assistant health educator suggested using patient bolus insulin towards the end of his rehab stay convert him to glipizide with consideration of a long-acting insulin overlap returning to [facility] due to urinary tract infection (3) Paroxysmal atrial fibrillation: Plan: -Initially noted to be in afib RVR with HR in the low 100's on arrival -Currently stable -Eliquis restarted Some dynamic changes seen with high rate resolved Initial troponin minimally elevated at 24 and then normalized on repeat. EKG changes have normalized. Echo 08/28: EF 60 to 65%, no regional wall motion abnormalities, LV SF normal, compared to 2020 no significant change. Denies history of CHF. Perioperative risk assessment as otherwise noted. (4) UTI (urinary tract infection): Plan: Overall presentation likely caused by osteomyelitis of the ankle. Infected appearing UA with chronic urostomy with UCx positive for GNB covered as otherwise noticed (5) Acute hypernatremia: Plan: Corrected sodium of 158 with severe dehydration on admission, resolved (6) Silent aspiration: Plan: -Long history -Stable on RoomAir today with stable chronic findings on CXR today -Will continue with minced/moist diet with honey thick liquids (7) MGUS (monoclonal gammopathy of unknown significance): Plan: -Has been monitoring outpatient -will monitor in house. Admission and Anticipated Discharge Date Admission Date: August 21, 2022 Subjective Patient seen in company of his and daughter he was consented for PICC line in the presence of both his signed as a surrogate for him. Offers no focal complaints or problems is still somewhat resistant to the idea of going to rehab his and daughter reinforced the fact that this is required Physical Exam Physical Exam: Patient is oriented x2 Cardiac exam is regular complaining of constipation and abdominal exam is benign Ileostomy site on abdomen is changed 09/02 and the stomal area looks good Foot is dressed ambulation was deliberate and stooped Results & Data Results & Data Vital Signs (Past 12 Hours) Vital Signs Temp Pulse Resp BP Pulse Ox O2 Del Method 09/02/22 08:16 98.4 F 71 16 116/66 97 Room Air 09/01/22 20:39 98.6 F 82 20 131/79 96 Room Air Laboratory Results Reviewed iajuc-ej-dwif glucose Discussion of glucose control with diabetic nurse educator Consented family for PICC line insertion PG Care Time/CCT Total # of Minutes Spent Total Time Spent with Patient: Total time spent is greater than 50% in coordination of care (as documented) at patient's floor/unit and/or counseling patient: Coding Level of Care Code 91448 SUB INP/OBS CARE 2/35MIN Diagnoses Osteomyelitis of ankle M86.9 Hyperosmolar hyperglycemic state (HHS) E11.00 Paroxysmal atrial fibrillation I48.0 UTI (urinary tract infection) N39.0 Acute hypernatremia E87.0 Silent aspiration T17.900A MGUS (monoclonal gammopathy of unknown significance) D47.2
[2022-09-02] MEDS: INSULIN ASPART PER UNIT CHARGE SC SCH ×4 (09:49→20:24)
[2022-09-02] MEDS: LANTUS PER UNIT CHARGE SC SCH (09:50)
[2022-09-02] MEDS: CYANOCOBALAMIN (B-12) 500 MCG TABLET PO SCH (09:52)
[2022-09-02] MEDS: APIXABAN 2.5 MG TAB PO SCH ×2 (09:52→20:24)
[2022-09-02] MEDS: FAMOTIDINE 20 MG TAB PO SCH (09:52)
[2022-09-02] MEDS: ATORVASTATIN 40 MG TAB PO SCH (09:52)
[2022-09-02] MEDS: POTASSIUM CHLORIDE PWD 20 MEQ PACK PO SCH (09:53)
[2022-09-02] MEDS: SENNA 8.6 MG TAB PO SCH (09:53)
[2022-09-02] MEDS: SODIUM BICARBONATE 650 MG TAB PO SCH ×2 (09:53→20:24)
[2022-09-03] MEDS: MEROPENEM 1,000 MG in SYRINGE 0 ML IV SCH ×2 (03:18→16:11)
[2022-09-03] MEDS: LANTUS PER UNIT CHARGE SC SCH (08:52)
[2022-09-03] MEDS: INSULIN ASPART PER UNIT CHARGE SC SCH ×4 (08:52→21:22)
[2022-09-03] MEDS: APIXABAN 2.5 MG TAB PO SCH ×2 (08:53→21:24)
[2022-09-03] MEDS: ATORVASTATIN 40 MG TAB PO SCH (08:53)
[2022-09-03] MEDS: SODIUM BICARBONATE 650 MG TAB PO SCH ×2 (08:54→21:24)
[2022-09-03] MEDS: POTASSIUM CHLORIDE PWD 20 MEQ PACK PO SCH (08:54)
[2022-09-03] MEDS: FAMOTIDINE 20 MG TAB PO SCH (08:54)
[2022-09-03] MEDS: SENNA 8.6 MG TAB PO SCH (08:54)
[2022-09-03] MEDS: CYANOCOBALAMIN (B-12) 500 MCG TABLET PO SCH (08:54)
[2022-09-03 10:32] LABS: BUN Creatinine Ratio 34.5 (10-20); Creatinine Clr Calc Pharmacy 28.8 ml/min; Est GFR (African American) 40.3 ml/min; Est GFR (Non-African American) 34.7 ml/min
--- NOTE | 2022-09-03 17:56 | Hospitalist Progress Note ---
Date of Service September 03, 2022 Assessment & Plan (1) Osteomyelitis of ankle: Plan: S/p Debridement tenosynovectomy 08/29/22 Dr Fuchs, - MRI 08/27: concern for early osteomyelitis. 2. Mild degenerative disease as described. 3. Possible partial tear involving the distal aspect of the peroneus brevis tendon. ID consulted. Given past cultures with intermediate sensitivity to cefepime, recommended for a 6-week course of Meropenem due to early osteomyelitis noted above. If renal function improved increase dose frequency -Wound care consulted, infectious diseases following signed off with recommendations as listed Infectious disease recommendations:Would treat with 6 weeks of IV antibiotics for osteomyelitis. Must cover MSSA, as it grew from OR culture this admission. OR culture from 06/04 grew Pseudomonas (two types) and low counts of probable skin shellie. Uncertain whether the Pseudomonas needs to be covered at this time as it did not grow in 08/29 OR culture, but of note the pt had been on meropenem/ceftazidime since 08/21, so this could have decreased the culture yield. The 06/04 operative note suggests that the culture was obtained from deep within the L ankle ulceration, and debridement included periosteum. To be conservative, would cover Pseudomonas as well. The 06/04 OR culture grew two types of Pseudomonas aeruginosa, although susceptibilities were only run on 1 (pansensitive). Pt does have prior history of Pseudomonas growing from multiple UCx showing variable susceptibility patterns (I pip-tazo, sometimes I/S cefepime with borderline JENI, borderline MICs for meropenem). Given the variable Pseudomonas susceptibility patterns, would favor meropenem, which would cover both Pseudomonas and MSSA. Recommending 6 weeks of therapy last dose October 09 (2) Hyperosmolar hyperglycemic state (HHS): Plan: -Presented with hyperglycemia of 544, no ketones in his urine, VBG with pH of 7.27. AG WNL, bicarb at 15 -Suspect chronic hyperglycemia driven by underlying infection HHS improved 08/23, discussion with adaptive physical educator suggested using patient bolus insulin towards the end of his rehab stay convert him to glipizide with consideration of a long-acting insulin overlap returning to [facility] due to urinary tract infection (3) Paroxysmal atrial fibrillation: Plan: -Initially noted to be in afib RVR with HR in the low 100's on arrival -Currently stable -Eliquis restarted Some dynamic changes seen with high rate resolved Initial troponin minimally elevated at 24 and then normalized on repeat. EKG changes have normalized. Echo 08/28: EF 60 to 65%, no regional wall motion abnormalities, LV SF normal, compared to 2020 no significant change. Denies history of CHF. Perioperative risk assessment as otherwise noted. (4) UTI (urinary tract infection): Plan: Overall presentation likely caused by osteomyelitis of the ankle. Infected appearing UA with chronic urostomy with UCx positive for GNB covered as otherwise noticed (5) Acute hypernatremia: Plan: Resolved (6) Silent aspiration: Plan: -Long history reinforced safe swallowing techniques -Stable on RoomAir today with stable chronic findings on CXR today -Will continue with minced/moist diet with honey thick liquids (7) MGUS (monoclonal gammopathy of unknown significance): Plan: [facility] Admission and Anticipated Discharge Date Admission Date: August 21, 2022 Subjective Patient was observed in his room he is ambulating to the restroom he had no focal complaints or problems still awaiting placement for continuation of his care, wound care, ostomy care, and and IV antibiotics Offers no focal complaints or problems is still somewhat resistant to the idea of going to rehab his and daughter reinforced the fact that this is required Physical Exam Physical Exam: Patient is oriented x2 Cardiac exam is regular complaining of constipation and abdominal exam is benign Ileostomy site on abdomen is changed 09/02 and the stomal area looks good Foot is dressed ambulation was deliberate and stooped Results & Data Results & Data Vital Signs (Past 12 Hours) Vital Signs Temp Pulse Pulse Resp BP Pulse Ox O2 Del Method 09/03/22 17:37 99.0 F 89 18 124/60 98 Room Air 09/03/22 08:45 Room Air 09/03/22 08:19 98.2 F 87 18 133/82 96 Room Air Laboratory Results Reviewed chemistry PG Care Time/CCT Total # of Minutes Spent Total Time Spent with Patient: Total time spent is greater than 50% in coordination of care (as documented) at patient's floor/unit and/or counseling patient: Coding Level of Care Code 97936 SUB INP/OBS CARE 1/25MIN Diagnoses Osteomyelitis of ankle M86.9 Hyperosmolar hyperglycemic state (HHS) E11.00 Paroxysmal atrial fibrillation I48.0 UTI (urinary tract infection) N39.0 Acute hypernatremia E87.0 Silent aspiration T17.900A MGUS (monoclonal gammopathy of unknown significance) D47.2
[2022-09-04] MEDS: MEROPENEM 1,000 MG in SYRINGE 0 ML IV SCH ×2 (04:19→15:02)
[2022-09-04] MEDS: SODIUM BICARBONATE 650 MG TAB PO SCH ×2 (07:57→20:25)
[2022-09-04] MEDS: ATORVASTATIN 40 MG TAB PO SCH (07:57)
[2022-09-04] MEDS: APIXABAN 2.5 MG TAB PO SCH ×2 (07:57→20:25)
[2022-09-04] MEDS: SENNA 8.6 MG TAB PO SCH (07:57)
[2022-09-04] MEDS: CYANOCOBALAMIN (B-12) 500 MCG TABLET PO SCH (07:57)
[2022-09-04] MEDS: POTASSIUM CHLORIDE PWD 20 MEQ PACK PO SCH (07:57)
[2022-09-04] MEDS: FAMOTIDINE 20 MG TAB PO SCH (08:03)
[2022-09-04] MEDS: LANTUS PER UNIT CHARGE SC SCH (08:49)
[2022-09-04] MEDS: INSULIN ASPART PER UNIT CHARGE SC SCH ×5 (08:50→21:09)
--- NOTE | 2022-09-04 22:17 | Hospitalist Progress Note ---
Date of Service September 04, 2022 Assessment & Plan (1) Osteomyelitis of ankle: Plan: S/p Debridement tenosynovectomy 08/29/22 Dr Fuchs, - MRI 08/27: concern for early osteomyelitis. 2. Mild degenerative disease as described. 3. Possible partial tear involving the distal aspect of the peroneus brevis tendon. ID consulted. Given past cultures with intermediate sensitivity to cefepime, recommended for a 6-week course of Meropenem due to early osteomyelitis noted above. If renal function improved increase dose frequency -Wound care consulted, infectious diseases following signed off with recommendations as listed Infectious disease recommendations:Would treat with 6 weeks of IV antibiotics for osteomyelitis. Must cover MSSA, as it grew from OR culture this admission. OR culture from 06/04 grew Pseudomonas (two types) and low counts of probable skin shellie. Uncertain whether the Pseudomonas needs to be covered at this time as it did not grow in 08/29 OR culture, but of note the pt had been on meropenem/ceftazidime since 08/21, so this could have decreased the culture yield. The 06/04 operative note suggests that the culture was obtained from deep within the L ankle ulceration, and debridement included periosteum. To be conservative, would cover Pseudomonas as well. The 06/04 OR culture grew two types of Pseudomonas aeruginosa, although susceptibilities were only run on 1 (pansensitive). Pt does have prior history of Pseudomonas growing from multiple UCx showing variable susceptibility patterns (I pip-tazo, sometimes I/S cefepime with borderline JENI, borderline MICs for meropenem). Given the variable Pseudomonas susceptibility patterns, would favor meropenem, which would cover both Pseudomonas and MSSA. Recommending 6 weeks of therapy last dose October 09 Patient awaiting placement. (2) Hyperosmolar hyperglycemic state (HHS): Plan: -Presented with hyperglycemia of 544, no ketones in his urine, VBG with pH of 7.27. AG WNL, bicarb at 15 -Suspect chronic hyperglycemia driven by underlying infection HHS improved 08/23, discussion with horticultural farmer suggested using patient bolus insulin towards the end of his rehab stay convert him to glipizide with consideration of a long-acting insulin overlap returning to [facility] due to urinary tract infection (3) Paroxysmal atrial fibrillation: Plan: -Initially noted to be in afib RVR with HR in the low 100's on arrival -Currently stable -Eliquis restarted Some dynamic changes seen with high rate resolved Initial troponin minimally elevated at 24 and then normalized on repeat. EKG changes have normalized. Echo 08/28: EF 60 to 65%, no regional wall motion abnormalities, LV SF normal, compared to 2020 no significant change. Denies history of CHF. Perioperative risk assessment as otherwise noted. (4) UTI (urinary tract infection): Plan: Overall presentation likely caused by osteomyelitis of the ankle. Infected appearing UA with chronic urostomy with UCx positive for GNB covered as otherwise noticed (5) Acute hypernatremia: Plan: Resolved (6) Silent aspiration: Plan: -Long history reinforced safe swallowing techniques -Stable on RoomAir today with stable chronic findings on CXR today -Will continue with minced/moist diet with honey thick liquids (7) MGUS (monoclonal gammopathy of unknown significance): Plan: Follows [facility] Admission and Anticipated Discharge Date Admission Date: August 21, 2022 Subjective Patient reports no new symptoms. Review of Systems Review of Systems: All systems reviewed & are unremarkable except as noted in HPI & below Physical Exam Physical Exam: General: In no acute distress, stated age, ill appearing but non-toxic HEENT: Normocephalic, atraumatic Chest/Pulm: No respiratory distress, symmetrical chest expansion, clear breath sounds throughout Cardiac: irregular rate and rhythm, no murmurs noted Results & Data Results & Data Vital Signs (Past 12 Hours) Vital Signs Temp Pulse Resp BP Pulse Ox O2 Del Method 09/04/22 20:20 37.0 C 88 18 115/63 97 Room Air 09/04/22 16:00 36.8 C 87 16 131/79 98 Room Air PG Care Time/CCT Total # of Minutes Spent Total Time Spent with Patient: Total time spent is greater than 50% in coordination of care (as documented) at patient's floor/unit and/or counseling patient: Coding Level of Care Code 94766 SUB INP/OBS CARE 2/35MIN Diagnoses Osteomyelitis of ankle M86.9 Hyperosmolar hyperglycemic state (HHS) E11.00 Paroxysmal atrial fibrillation I48.0 UTI (urinary tract infection) N39.0 Acute hypernatremia E87.0 Silent aspiration T17.900A MGUS (monoclonal gammopathy of unknown significance) D47.2
[2022-09-05] MEDS: MEROPENEM 1,000 MG in SYRINGE 0 ML IV SCH ×2 (04:06→16:48)
[2022-09-05 07:05] LABS: Hemoglobin 10.4 g/dl (14.0-18.0); Mean Corpuscular Hemoglobin 32.5 pg (25.0-34.0); Mean Corpuscular Hgb Conc 33.5 g/dL (32.0-36.0); Mean Corpuscular Volume 96.9 fL (80.0-100.0); Mean Platelet Volume 10.7 fL (9.4-12.4); Platelet Count 219 K/uL (130-400); RDW Coefficient of Variation 14.7 % (11.5-14.5); RDW Standard Deviation 52.7 fL (36.4-46.3); White Blood Count 4.24 K/ul (4.8-10.8)
[2022-09-05 07:10] LABS: Creatinine Clr Calc Pharmacy 30.2 ml/min
[2022-09-05] MEDS: SENNA 8.6 MG TAB PO SCH (07:58)
[2022-09-05] MEDS: CYANOCOBALAMIN (B-12) 500 MCG TABLET PO SCH (07:59)
[2022-09-05] MEDS: SODIUM BICARBONATE 650 MG TAB PO SCH ×2 (08:00→20:15)
[2022-09-05] MEDS: ATORVASTATIN 40 MG TAB PO SCH (08:01)
[2022-09-05] MEDS: APIXABAN 2.5 MG TAB PO SCH ×2 (08:01→20:16)
[2022-09-05] MEDS: POTASSIUM CHLORIDE PWD 20 MEQ PACK PO SCH (08:02)
[2022-09-05] MEDS: FAMOTIDINE 20 MG TAB PO SCH (08:06)
[2022-09-05] MEDS: LANTUS PER UNIT CHARGE SC SCH (08:52)
[2022-09-05] MEDS: INSULIN ASPART PER UNIT CHARGE SC SCH ×4 (08:52→21:20)
[2022-09-05 08:54] LABS: Calcium 8.8 mg/dl (8.6-10.3); Potassium 4.4 mmol/L (3.5-5.1)
[2022-09-05 09:00] LABS: BUN Creatinine Ratio 44.3 (10-20); Est GFR (African American) 42.3 ml/min; Est GFR (Non-African American) 36.5 ml/min; Phosphorus 2.5 mg/dl (2.5-4.9)
--- NOTE | 2022-09-05 10:58 | Hospitalist Progress Note ---
Date of Service September 05, 2022 Assessment & Plan (1) Osteomyelitis of ankle: Plan: S/p Debridement tenosynovectomy 08/29/22 Dr Fuchs, - MRI 08/27: concern for early osteomyelitis. 2. Mild degenerative disease as described. 3. Possible partial tear involving the distal aspect of the peroneus brevis tendon. ID consulted. Given past cultures with intermediate sensitivity to cefepime, recommended for a 6-week course of Meropenem due to early osteomyelitis noted above. If renal function improved increase dose frequency -Wound care consulted, infectious diseases following signed off with recommendations as listed Infectious disease recommendations:Would treat with 6 weeks of IV antibiotics for osteomyelitis. Must cover MSSA, as it grew from OR culture this admission. OR culture from 06/04 grew Pseudomonas (two types) and low counts of probable skin shellie. Uncertain whether the Pseudomonas needs to be covered at this time as it did not grow in 08/29 OR culture, but of note the pt had been on meropenem/ceftazidime since 08/21, so this could have decreased the culture yield. The 06/04 operative note suggests that the culture was obtained from deep within the L ankle ulceration, and debridement included periosteum. To be conservative, would cover Pseudomonas as well. The 06/04 OR culture grew two types of Pseudomonas aeruginosa, although susceptibilities were only run on 1 (pansensitive). Pt does have prior history of Pseudomonas growing from multiple UCx showing variable susceptibility patterns (I pip-tazo, sometimes I/S cefepime with borderline JENI, borderline MICs for meropenem). Given the variable Pseudomonas susceptibility patterns, would favor meropenem, which would cover both Pseudomonas and MSSA. Recommending 6 weeks of therapy last dose October 09 Patient awaiting placement. (2) Hyperosmolar hyperglycemic state (HHS): Plan: -Presented with hyperglycemia of 544, no ketones in his urine, VBG with pH of 7.27. AG WNL, bicarb at 15 -Suspect chronic hyperglycemia driven by underlying infection HHS improved 08/23, discussion with water resource consultant suggested using patient bolus insulin towards the end of his rehab stay convert him to glipizide with consideration of a long-acting insulin overlap returning to [facility] due to urinary tract infection (3) Paroxysmal atrial fibrillation: Plan: -Initially noted to be in afib RVR with HR in the low 100's on arrival -Currently stable -Eliquis restarted Some dynamic changes seen with high rate resolved Initial troponin minimally elevated at 24 and then normalized on repeat. EKG changes have normalized. Echo 08/28: EF 60 to 65%, no regional wall motion abnormalities, LV SF normal, compared to 2020 no significant change. Denies history of CHF. Perioperative risk assessment as otherwise noted. (4) UTI (urinary tract infection): Plan: Overall presentation likely caused by osteomyelitis of the ankle. Infected appearing UA with chronic urostomy with UCx positive for GNB covered as otherwise noticed (5) Acute hypernatremia: Plan: Resolved (6) Silent aspiration: Plan: -Long history reinforced safe swallowing techniques -Stable on RoomAir today with stable chronic findings on CXR today -Will continue with minced/moist diet with honey thick liquids (7) MGUS (monoclonal gammopathy of unknown significance): Plan: Follows [facility] Admission and Anticipated Discharge Date Admission Date: August 21, 2022 Subjective 86 yo male reports no new symptoms Review of Systems Review of Systems: All systems reviewed & are unremarkable except as noted in HPI & below Physical Exam Physical Exam: General: In no acute distress, stated age HEENT: Normocephalic, atraumatic Chest/Pulm: No respiratory distress, symmetrical chest expansion, clear breath sounds throughout Cardiac: regular rate, no murmurs noted Results & Data Results & Data Vital Signs (Past 12 Hours) Vital Signs Temp Pulse Resp BP Pulse Ox O2 Del Method 09/05/22 06:54 37.0 C 70 16 132/78 98 Room Air PG Care Time/CCT Total # of Minutes Spent Total Time Spent with Patient: Total time spent is greater than 50% in coordination of care (as documented) at patient's floor/unit and/or counseling patient: Coding Level of Care Code 01014 SUB INP/OBS CARE 25MIN Diagnoses Osteomyelitis of ankle M86.9 Hyperosmolar hyperglycemic state (HHS) E11.00 Paroxysmal atrial fibrillation I48.0 UTI (urinary tract infection) N39.0 Acute hypernatremia E87.0 Silent aspiration T17.900A MGUS (monoclonal gammopathy of unknown significance) D47.2
--- NOTE | 2022-09-05 12:07 | Pharmacy Report ---
Pharmacy Glycemic Short Note 2 - Date of Service September 05, 2022 - Glycemic Short BSG Results (Last 24 hours): 09/04/22 09/04/22 09/04/22 12:15 17:18 20:46 Glucose POC Glucose 180 H 144 H 244 H 09/05/22 09/05/22 05:56 08:49 Glucose 125 H POC Glucose 169 H OUTPATIENT ANTIDIABETIC REGIMEN: * Farxiga 5 mg PO daily -- consider discontinuing therapy d/t recurrent UTI's * Tradjenta 5 mg PO daily * HbA1c = 9.4% (07/23/22) ASSESSMENT: 09/05/22: * Patient received total 17 units of insulin yesterday; 6 units basal and 11 units bolus. * BSGs yesterday were [phone] mg/dl. BSG at HS has been the highest value the last couple of days. * Fasting BSG today = 125 mg/dl. Continued basal insulin the same. * Novolog parameters tightened slightly. 09/01/22 * Patient received 23 units of insulin yesterday- 5 units of basal and 18 units of bolus. * BSGs yesterday were [phone] mg/dL. * BSGs today are 136-231 mg/dL. * Continue lantus as fasting within goal range. * Tighten CR since BSG trending up significantly. 08/29/22: * Pt was slightly hypoglycemic this morning (BSG 67mg/dL on lab draw), so Lantus was reduced to once daily this morning. * No further changes at this time. 08/28/22: * BSGs yesterday were [phone] mg/dL. Patient received 29 units of insulin (12 units of basal and 17 units of bolus). * Fasting today is 103 mg/dL. Decrease basal to 10 units (5 units BID). * Spoke with physician - dextrose fluids discontinued today. Patient continues on daptomycin and ceftazidime. * Continue Novolog as BSGs relatively stable. 08/26/22: * Patient received total of 21 units of insulin yesterday, of which 12 units were basal insulin * Fasting BSG 124 mg/dL - continue with same basal, will spit dose equally BID * Loosened CR at breakfast as concerns for BSG trending down at lunch 08/24/22: * BSGs noticeably improved yesterday, basal insulin reduced in light of fasting BSG of 94 mg/dL and patient not eating * Received 11 units of insulin yesterday (9 units of basal and 2 units of bolus) * D5W @80 mL/hr ordered by nephrology today 08/22/22: * 86 y/o M admitted for HHS last night. IV fluids and insulin drip was started on him yesterday. * BSGs trended down overnight and insulin drip rate was turned off this morning. * Patient is currently getting Dextrose in IV fluids running at 150 ml/hr which will contribute to elevated BSGs. Per Nephro, continue Dextrose. * He is also ordered a diet. * Patient is known to glycemic service from past admissions. Basal insulin 12 units once daily has worked well, therefore will continue the same. * Novolog parameters chosen based on previous admissions also. PLAN FOR INPATIENT GLYCEMIC CONTROL: * Hold outpatient oral diabetes medications * Basal insulin * Lantus 6 units SC once daily * Bolus insulin * NovoLog per scale ACHS or Q6hrs while NPO * Goal Range: Low 120 mg/dL - High 150 mg/dL * Correction Factor: 30 mg/dL/unit with breakfast and 40 mg/dl/unit with lunch, dinner and HS * Nutritional / Prandial insulin per carb ratio of 1 unit per 9 grams CHO consumed at breakfast and 1 unit per 13 gm CHO at lunch, dinner and HS
[2022-09-05] MEDS ORDERED: COVID19 BIVALENT Vaccine (Pfizer) 30mcg/0.3mL MDV IM ONE (12:19)
[2022-09-06] MEDS: MEROPENEM 1,000 MG in SYRINGE 0 ML IV SCH ×2 (04:53→16:31)
[2022-09-06] MEDS: SODIUM BICARBONATE 650 MG TAB PO SCH ×2 (08:21→20:21)
[2022-09-06] MEDS: ATORVASTATIN 40 MG TAB PO SCH (08:21)
[2022-09-06] MEDS: POTASSIUM CHLORIDE PWD 20 MEQ PACK PO SCH (08:21)
[2022-09-06] MEDS: SENNA 8.6 MG TAB PO SCH (08:21)
[2022-09-06] MEDS: CYANOCOBALAMIN (B-12) 500 MCG TABLET PO SCH (08:21)
[2022-09-06] MEDS: APIXABAN 2.5 MG TAB PO SCH ×2 (08:21→20:21)
[2022-09-06] MEDS: FAMOTIDINE 20 MG TAB PO SCH (08:27)
[2022-09-06] MEDS: LANTUS PER UNIT CHARGE SC SCH (08:27)
[2022-09-06] MEDS: INSULIN ASPART PER UNIT CHARGE SC SCH ×4 (08:27→21:00)
--- NOTE | 2022-09-06 20:24 | Hospitalist Progress Note ---
Date of Service September 06, 2022 Assessment & Plan (1) Osteomyelitis of ankle: Plan: Left ankle - lateral S/p Debridement and tenosynovectomy on 08/29/22 Dr Jah Fuchs Appreciate his assistance Surgical incision clean, sutures intact Doing well on IV meropenem ID advised 6 weeks of Rx with last date 10/09/22 Meropenem will cover Pseudomonas + MSSA - latter grew from OR cultures Former grew from old cultures of ankle several months ago Cont dressing changes / local wound care WBAT In light of MGUS consider Immunoglobulins (2) Hyperosmolar hyperglycemic state (HHS): Plan: present at admission - resolved s/p insulin drip pharmacy currently managing BSGs adequate control on basal-bolus insulin (3) UTI (urinary tract infection): Plan: at time of admission uncertain of significance of the culture results as he will always have bacteriuria given his urostomy source of his infection upon admission was clearly the left ankle (4) Acute hypernatremia: Plan: resolved (5) Silent aspiration: Plan: continue with minced/moist diet with honey thick liquids no issues at this time (6) MGUS (monoclonal gammopathy of unknown significance): Plan: Follows with CCP consider immunoglobulin levels (7) Stage 3b chronic kidney disease (CKD): Plan: baseline CrCl just about 30 BMP every 2-3 days for stability while on IV abx therapy (8) DVT prophylaxis: Plan: Eliquis 2.5mg BID (9) Permanent atrial fibrillation: Plan: last few EKGs have shown persistent a.fib likely permanent he is not on AV flori agents and HRs are stable and <100 Cont Eliquis 2.5mg BID (10) Memory loss: Plan: does patient have underlying dementia? will get more history from family previous MRI brain with significant atrophy Plan awaiting SNF placement PT, OT when able Admission and Anticipated Discharge Date Admission Date: August 21, 2022 Subjective pt sitting in chair by window eating lunch he is not able to offer much in the way of history or ROS he seemed irritated that I was interrupting him staff report he is moving his bowels for staff he is oriented to person and occasionally place only this has been consistent over the last few days he occasionally has L ankle pain no concerns from staff Review of Systems 2 Review of Systems: Unobtainable due to cognitive status Physical Exam Physical Exam: gen - thin, eating lunch, NAD; sitting in chair mouth - MMM neck - no JVD at 90 degrees heart - irregularly irregular, s1 s2 lungs - CTA b/l ext - no edema, pulses 2+ b/l feet skin - left lateral ankle - optifoam in place, this was peeled back; sutures in intact over incision, minimal serous drainage; no cellulitis or purulence or odor psych - oriented to person only; he seemed to not even know he had L ankle surgery recently Results & Data Results & Data Vital Signs (Past 12 Hours) Vital Signs Temp Pulse Resp BP Pulse Ox O2 Del Method 09/06/22 20:22 36.8 C 89 18 122/69 94 Room Air 09/06/22 16:09 37.4 C 89 16 126/74 98 Room Air Laboratory Results Laboratory Results - last 24 hr 09/05/22 09/06/22 09/06/22 20:24 08:05 11:55 POC Glucose 182 H 114 H 239 H 09/06/22 09/06/22 17:19 20:20 POC Glucose 93 130 H PG Care Time/CCT Total # of Minutes Spent Total Time Spent with Patient: Total time spent is greater than 50% in coordination of care (as documented) at patient's floor/unit and/or counseling patient: Coding Level of Care Code 26216 SUB INP/OBS CARE 235MIN Diagnoses Osteomyelitis of ankle M86.9 Hyperosmolar hyperglycemic state (HHS) E11.00 UTI (urinary tract infection) N39.0 Acute hypernatremia E87.0 Silent aspiration T17.900A MGUS (monoclonal gammopathy of unknown significance) D47.2 Stage 3b chronic kidney disease (CKD) N18.32 DVT prophylaxis Z29.9 Permanent atrial fibrillation I48.21 Memory loss R41.3
[2022-09-07] MEDS: MEROPENEM 1,000 MG in SYRINGE 0 ML IV SCH ×2 (04:43→16:57)
[2022-09-07 06:37] LABS: Hematocrit (blood only) 32.8 % (42.0-52.0); Hemoglobin 10.9 g/dl (14.0-18.0); Mean Corpuscular Hemoglobin 32.8 pg (25.0-34.0); Mean Corpuscular Hgb Conc 33.2 g/dL (32.0-36.0); Mean Corpuscular Volume 98.8 fL (80.0-100.0); Platelet Count 197 K/uL (130-400); RDW Coefficient of Variation 14.5 % (11.5-14.5); RDW Standard Deviation 52.2 fL (36.4-46.3); Red Blood Count 3.32 M/uL (4.70-6.10); White Blood Count 4.59 K/ul (4.8-10.8)
[2022-09-07 06:54] LABS: BUN Creatinine Ratio 43.5 (10-20); Calcium 9.1 mg/dl (8.6-10.3); Creatinine Clr Calc Pharmacy 27.2 ml/min; Est GFR (African American) 37.6 ml/min; Est GFR (Non-African American) 32.5 ml/min; Magnesium 2.2 mg/dl (1.7-2.4); Potassium 4.5 mmol/L (3.5-5.1)
[2022-09-07] MEDS: CYANOCOBALAMIN (B-12) 500 MCG TABLET PO SCH (07:50)
[2022-09-07] MEDS: APIXABAN 2.5 MG TAB PO SCH ×2 (07:51→20:49)
[2022-09-07] MEDS: SODIUM BICARBONATE 650 MG TAB PO SCH (07:51)
[2022-09-07] MEDS: ATORVASTATIN 40 MG TAB PO SCH (07:51)
[2022-09-07] MEDS: POTASSIUM CHLORIDE PWD 20 MEQ PACK PO SCH (07:51)
[2022-09-07] MEDS: SENNA 8.6 MG TAB PO SCH (07:51)
[2022-09-07] MEDS: FAMOTIDINE 20 MG TAB PO SCH (07:53)
[2022-09-07] MEDS: INSULIN ASPART PER UNIT CHARGE SC SCH ×4 (08:48→21:40)
[2022-09-07] MEDS ORDERED: LANTUS PER UNIT CHARGE SC SCH (09:00)
[2022-09-07] MEDS ORDERED: SODIUM CHLORIDE 0.9% 1000ML 1,000 ML IV SCH (10:30)
[2022-09-07] MEDS: CEROVITE ADV FORMULA TAB PO SCH (12:03)
--- NOTE | 2022-09-07 21:03 | Hospitalist Progress Note ---
Date of Service September 07, 2022 Assessment & Plan (1) Osteomyelitis of ankle: Plan: Lateral Left ankle s/p surgery on 08/29/[address] Jah Fuchs. Details: 1. Irrigation and Debridement Ulcer Left Lateral Ankle 1cm x 1.5cm x 0.5cm 2. Irrigation and debridement with Tenosynovectomy peroneus longus and peroneus brevis tendons 3. Debridement with Bone Biopsy Lateral Malleolus with Application of Vancomycin Powder Appreciate Dr Fuchs's assistance Surgical incision remains clean with intact sutures Doing well on IV meropenem ID advised 6 weeks of Rx with last date 10/09/22 Meropenem will cover Pseudomonas + MSSA - latter grew from OR cultures Former grew from old cultures of ankle several months ago Cont dressing changes / local wound care WBAT In light of MGUS consider checking immunoglobulins if any issues with recurrent infection or wound healing Pulses intact on physical exam (2) Hyperosmolar hyperglycemic state (HHS): Plan: present at admission - resolved s/p insulin drip pharmacy currently managing BSGs adequate control on basal-bolus insulin (3) UTI (urinary tract infection): Plan: at time of admission uncertain of significance of the culture results as he will always have bacteriuria given his urostomy source of his infection upon admission was felt to be the left ankle rather than urine (4) Acute hypernatremia: Plan: present at admission -- resolved (5) Silent aspiration: Plan: continue with minced/moist diet with honey thick liquids no issues at this time stable lung exam stable O2 sats (6) MGUS (monoclonal gammopathy of unknown significance): Plan: Follows with CCP consider checking immunoglobulin levels (7) Stage 3b chronic kidney disease (CKD): Plan: baseline CrCl just about 30 BUN and Cr are modestly higher than baseline today uncertain if liquid intake is adequate will give 1 liter of fluids overnight and repeat BMP am (8) DVT prophylaxis: Plan: Eliquis 2.5mg BID (9) Permanent atrial fibrillation: Plan: last few EKGs have shown persistent a.fib likely permanent he is not on AV flori agents and HRs are stable and <100 Cont Eliquis 2.5mg BID (10) Memory loss: Plan: previous MRI brain with significant atrophy talking with staff he has been altered the entire stay he is oriented to person but otherwise not able to offer much in the way of history or ROS I spoke with his this evening she reports he has times of memory difficulty at home but not consistently explained to her that he has had persistent alteration the entire stay he could be having hospital delirium but I am also concerned about baseline dementia recommended neurology eval post-d/c Plan awaiting SNF placement PT, OT I updated pt's by phone this evening Admission and Anticipated Discharge Date Admission Date: August 21, 2022 Subjective upon arrival for rounds patient was sleeping in bed he awoke easily, answered my questions, offered no complaints pleasantly confused staff report he had another BM today eating well drinking fluids is fair no obvious pain anywhere Review of Systems Review of Systems: ROS is limited due to confusion but he denies chest pain, abd pain, dyspnea or L ankle pain Physical Exam Physical Exam: gen - thin, lying flat in bed comfortably, kept eyes closed during the visit but did answer questions mouth - MM slightly dry heart - irregularly irregular, s1 s2, no murmur lungs - CTA b/l abd - urostomy in place with clear yellow urine; stoma pink and healthy- appearing; NT; ND, soft; BS+ ext - no edema, pulses 2+ b/l feet skin - left lateral ankle - optifoam in place, this was peeled back once again; sutures are intact over incision, scant serous drainage; no cellulitis or puru lence psych - oriented to person only Results & Data Results & Data Vital Signs (Past 12 Hours) Vital Signs Temp Pulse Resp BP Pulse Ox O2 Del Method 09/07/22 20:28 36.8 C 90 18 118/66 95 Room Air 09/07/22 15:45 37.0 C 71 16 142/85 H 97 Room Air Laboratory Results Laboratory Results - last 24 hr 09/07/22 09/07/22 09/07/22 06:07 06:07 08:00 WBC 4.59 L RBC 3.32 L Hgb 10.9 L Hct 32.8 L MCV 98.8 MCH 32.8 MCHC 33.2 RDW Std Deviation 52.2 H RDW Coeff of Tasneem 14.5 Plt Count 197 MPV 10.0 Sodium 142 Potassium 4.5 Chloride 108 H Carbon Dioxide 29 Anion Gap 5 BUN 80 H Creatinine 1.84 H Est Cr Clr Drug Dosing 27.2 Est GFR ( Amer) 37.6 Est GFR (Non-Af Amer) 32.5 BUN/Creatinine Ratio 43.5 H Glucose 98 POC Glucose 109 H Calcium 9.1 Magnesium 2.2 09/07/22 09/07/22 09/07/22 12:02 17:05 20:25 WBC RBC Hgb Hct MCV MCH MCHC RDW Std Deviation RDW Coeff of Tasneem Plt Count MPV Sodium Potassium Chloride Carbon Dioxide Anion Gap BUN Creatinine Est Cr Clr Drug Dosing Est GFR ( Amer) Est GFR (Non-Af Amer) BUN/Creatinine Ratio Glucose POC Glucose 183 H 104 H 118 H Calcium Magnesium PG Care Time/CCT Total # of Minutes Spent Total Time Spent with Patient: Total time spent is greater than 50% in coordination of care (as documented) at patient's floor/unit and/or counseling patient: Coding Level of Care Code 71352 SUB INP/OBS CARE 235MIN Diagnoses Osteomyelitis of ankle M86.9 Hyperosmolar hyperglycemic state (HHS) E11.00 UTI (urinary tract infection) N39.0 Acute hypernatremia E87.0 Silent aspiration T17.900A MGUS (monoclonal gammopathy of unknown significance) D47.2 Stage 3b chronic kidney disease (CKD) N18.32 DVT prophylaxis Z29.9 Permanent atrial fibrillation I48.21 Memory loss R41.3
[2022-09-08] MEDS: MEROPENEM 1,000 MG in SYRINGE 0 ML IV SCH ×2 (03:22→15:09)
[2022-09-08 08:38] LABS: BUN Creatinine Ratio 42.5 (10-20); Calcium 8.7 mg/dl (8.6-10.3); Est GFR (African American) 38.9 ml/min; Est GFR (Non-African American) 33.6 ml/min; Potassium 4.2 mmol/L (3.5-5.1)
[2022-09-08] MEDS ORDERED: LANTUS PER UNIT CHARGE SC SCH (09:00)
[2022-09-08] MEDS: INSULIN ASPART PER UNIT CHARGE SC SCH ×2 (09:03→13:10)
[2022-09-08] MEDS: FAMOTIDINE 20 MG TAB PO SCH (09:07)
[2022-09-08] MEDS: CYANOCOBALAMIN (B-12) 500 MCG TABLET PO SCH (09:07)
[2022-09-08] MEDS: APIXABAN 2.5 MG TAB PO SCH (09:07)
[2022-09-08] MEDS: ATORVASTATIN 40 MG TAB PO SCH (09:07)
[2022-09-08] MEDS: CEROVITE ADV FORMULA TAB PO SCH (09:07)
[2022-09-08] MEDS: SENNA 8.6 MG TAB PO SCH (09:07)
--- NOTE | 2022-09-08 14:06 | Discharge Summary ---
Date of Service September 08, 2022 Admission HPI Per Admitting Provider Raphael is an 86 year old male with a PMH significant for afib on eliquis, bladder cancer S/P bladder cancer with ileal conduit & recurrent UTI's, HTN, stage III CKD, dyslipidemia, adenocarcinoma of the colon S/P open subtotal colectomy in 2020 (follows with Heme/onc and currently on surveillance), DM II, anemia and MGUS who presented to the [facility] ED on 08/21/22 with complaints of Generalized weakness and hyperglycemia. In the ED the patient was noted to be tachycardic with HR in the low 100's, tachypneic with respirations in the low 30's but otherwise stable. Labs were significant for a leukopenia of 3.44 (down from 7.37 as of 07/23), VBG pH of 7.27, pCO2 37, Cr of 1.86 (baseline appears to be 1.7-1.8), bicarb of 15 with AG of 8, chloride of 128, glucose of 544, corrected sodium of 158, serum osmolality of 380, covid 19 negative, and UA suggestive of acute UTI. Chest xray was read as "No acute abnormalities. Findings are compatible with prior granulomatous disease.". Prior to admission the patient was started on an insulin drip with HHS protocol and received 1L NSS bolus. At the time of the exam the patient was lying in bed in no acute distress with his and daughter sitting bedside, history was mainly obtained from the patient's family due to his current mental status. They state that he was discharged to a SNF after his last admission when he was diagnosed with left lateral ankle osteitis. He completed his outpatient course of Cefepime at rehab and was discharged back home on 07/14. He had been doing well up until last Thursday when he became generally weak. He has been less active over this time but has been eating and drinking fairly well. He has been having increased Urostomy output and has been having elevated blood glucose. The patient recently saw Dr. Lin on 08/18 who mentioned that they might have to increase his dose of Farxiga in the near future. The family does not believe the patient has been febrile recently, he has not had a recent fall. The patient himself denies chest pain, SOB, and pain, nausea, vomiting, diarrhea, LE swelling, and recent trauma. He has been taking all medications as prescribed. I discussed code status with his family, they confirmed that he is a DNR/DNI. Principal Diagnosis osteomyelitis of left ankle Discharge Exam gen - thin, lying flat in bed comfortably heart - irregularly irregular, s1 s2, no murmur lungs - CTA b/l abd - urostomy in place with clear yellow urine; stoma pink and healthy- appearing; NT; ND, soft; BS+ ext - no edema, pulses 2+ b/l feet skin - left lateral ankle - optifoam in place, this was peeled back once again; sutures are intact over incision, scant serous drainage; no cellulitis or purulence psych - oriented to person only Discharge Data Allergies Allergy/AdvReac Type Severity Reaction Status Date / Time No Known Allergies Allergy Verified 08/21/22 16:46 Consultations 08/21/22 17:17 ED Decision to Admit Stat 08/22/22 10:26 Consult Nephrology Routine 08/25/22 22:32 Consult Infectious Diseases Routine 08/26/22 12:17 Consult Orthopedic Surgery Routine Procedures Performed Operation Date: 08/29/22 07:00 Actual Procedures p Irrigation and Debridement Ulcer Left Lateral Ankle 1cm x 1.5cm x 0.5cm, Irrigation and debridement with Tenosynoectomy Peroneal Tendons, Debridement with Bone Biopsy Lateral Malleolus with Application of Vancomycin Powder(Left) - James Fuchs, Ordered Studies 08/27/22 19:04 MR ankle LT wo/w con Urgent Hospital Course (1) Osteomyelitis of ankle: Lateral Left ankle s/p surgery on 08/29/[address] Jah Fuchs. Details: 1. Irrigation and Debridement Ulcer Left Lateral Ankle 1cm x 1.5cm x 0.5cm 2. Irrigation and debridement with Tenosynovectomy peroneus longus and peroneus brevis tendons 3. Debridement with Bone Biopsy Lateral Malleolus with Application of Vancomycin Powder Appreciate Dr Fuchs's assistance Surgical incision remains clean with intact sutures Doing well on IV meropenem ID advised 6 weeks of Rx with last date 10/09/22 Meropenem will cover Pseudomonas + MSSA - latter grew from OR cultures Former grew from old cultures of ankle several months ago Cont dressing changes / local wound care WBAT In light of MGUS consider checking immunoglobulins if any issues with recurrent infection or wound healing will defer to PCP. Pulses intact on physical exam (2) Hyperosmolar hyperglycemic state (HHS): present at admission - resolved s/p insulin drip pharmacy currently managing BSGs adequate control on basal-bolus insulin (3) UTI (urinary tract infection): at time of admission uncertain of significance of the culture results as he will always have bacteriuria given his urostomy source of his infection upon admission was felt to be the left ankle rather than urine (4) Acute hypernatremia: present at admission -- resolved (5) Silent aspiration: continue with minced/moist diet with honey thick liquids no issues at this time stable lung exam stable O2 sats (6) MGUS (monoclonal gammopathy of unknown significance): Follows with CCP consider checking immunoglobulin levels (7) Stage 3b chronic kidney disease (CKD): baseline CrCl just about 30 will recommend to check BMP weekly to ensure patient's electrolytes are normal. (8) DVT prophylaxis: Eliquis 2.5mg BID (9) Permanent atrial fibrillation: last few EKGs have shown persistent a.fib likely permanent he is not on AV flori agents and HRs are stable and <100 Cont Eliquis 2.5mg BID (10) Memory loss: previous MRI brain with significant atrophy talking with staff he has been altered the entire stay he is oriented to person but otherwise not able to offer much in the way of history or ROS reports he has times of memory difficulty at home but not consistently explained to her that he has had persistent alteration the entire stay he could be having hospital delirium but I am also concerned about baseline dementia recommended neurology eval post-d/c will defer to PCP Plan Follow-up with Dr. Fuchs at [facility] in 2 to 3 weeks. Call for appointment . Total Time Total Time Spent Total Time Spent (In Minutes): 35 Discharge Plan Discharge Items Patient Disposition: Transfer Halfway Fac Reason For Visit: GENERALIZED WEAKNESS, HYPERGLYCEMIA Discharge Diagnosis: Generalized weakness, hyperglycemia Activity: Resume your previous activity Non-emergency contact: Primary Care Provider Call non-emergency contact if: you have any medication questions Follow-up/Referrals: Carlito Caro CRNP [Primary Care Provider] - Diet: Carb Consistent or DM2 and Heart Healthy Diet Texture: Dental soft (bite-sized) Liquid Consistency: Rudyard thick Diet Comment: minced moist Addtl Attending Provider Instructions: You have been hospitalized for an acute medical problem. During your stay at [facility], we have made an effort to correct the problem that brought you to the hospital while keeping you as comfortable as possible. Medications were used to bring your condition under control and your discharge instructions will include directions for any medications you should take after leaving the hospital. Please make sure you see your Primary Care Provider as part of your follow up plan. Doing well on IV meropenem ID advised 6 weeks of Rx with last date 10/09/22 Cont dressing changes / local wound care Weight bear as tolerated Follow-up with Dr. Fuchs at [facility] in 2 to 3 weeks. Call for appointment . Pending Studies at Discharge: No Stand-Alone Forms: My [facility] Skilled Items Patient informed of condition?: No DNR: Yes Discharge Level of Care: Skilled Communicable Disease: No Discharge Prognosis: Stable Lines: PICC Urinary Catheter: No Medications and DC Order Prescriptions: New sennosides [Senokot] 8.6 mg Tablet 8.6 mg PO QAM Qty: 30 0RF meropenem 1 gram recon soln 1 g IV Q12H Qty: 60 0RF Rx Instructions: last dose 10/09/22 Continued Eliquis 2.5 mg tablet 2.5 mg PO BID Qty: 180 1RF Rx Instructions: [id number] atorvastatin [Lipitor] 40 mg tablet 40 mg PO QAM Qty: 90 1RF polyethylene glycol 3350 [Miralax] 17 gram powder in packet 17 g PO DAILY PRN (Reason: constipation) Qty: 30 0RF Tradjenta 5 mg tablet 5 mg PO DAILY Qty: 90 3RF famotidine 20 mg tablet 20 mg PO QAM Qty: 90 1RF Farxiga 5 mg tablet 5 mg PO DAILY Qty: 90 1RF (DME) blood sugar diagnostic Strip See Rx Instructions .Route Qty: 100 2RF Rx Instructions: TEST ONCE DAILY; DX CODE- E11.29 (DME) lancets [OneTouch Delica Plus Lancet] 30 gauge misc See Rx Instructions .Route Qty: 100 2RF Rx Instructions: TEST ONCE DAILY; DX CODE- E11.29 acetaminophen 500 mg capsule 500 mg PO Q6H PRN (Reason: Pain) ascorbate calcium (vitamin C) 500 mg tablet 500 mg PO DAILY (DME) blood-glucose meter Kit See Rx Instructions .Route Qty: 1 0RF Rx Instructions: As directed Macular Health Formula 5-1-7.5 mg capsule 1 cap PO QAM coenzyme Q10 [Co Q-10] 100 mg capsule 100 mg PO QAM Qty: 30 zinc acetate 50 mg (zinc) Capsule 50 mg PO DAILY Neuriva Original 50-50 mg Tablet,Chewable 1 tab PO HS cyanocobalamin (vitamin B-12) [Vitamin B-12] 2,500 mcg Tablet, Sublingual 2,500 mcg SUBLINGUAL QAM Discontinued tramadol 50 mg Tablet 50 mg PO Q4H PRN (Reason: severe pain) Qty: 10 0RF Discharge Orders: Discharge Order (Routine); Ordered 09/08/22 Ordered By: Raphael Douglas Admission Data Admit Date/Time: 08/21/22 18:10 Attending Provider: Raphael Douglas Admit Provider: Kenroy Graves Primary Care Provider: Carlito Caro Other Providers: [facility] ; Kenroy Graves ; Bimal Bertrand ; Luci Lin Kevin C. ; Layla Parry ; Kathleen Alba ; Alvaro Camacho ; Keira Miller ; Kranthi Matos ; Kelly Martínez ; Megha Daigle ; Cherie Rocha ; Daria Rand ; Teri Acuña ; James Fuchs ; [facility] ; Juan Josesan [facility] Coding Level of Care Code 37676 INP/OBS DISCH >30 MIN Diagnoses Osteomyelitis of ankle M86.9 Hyperosmolar hyperglycemic state (HHS) E11.00 UTI (urinary tract infection) N39.0 Acute hypernatremia E87.0 Silent aspiration T17.900A MGUS (monoclonal gammopathy of unknown significance) D47.2 Stage 3b chronic kidney disease (CKD) N18.32 DVT prophylaxis Z29.9 Permanent atrial fibrillation I48.21 Memory loss R41.3
== END 2022-09-08 17:48 | DRG 629 ==
LOC: ED 13:57 → 2S 18:10 → SUATTDRO 18:10 → 2S 19:11 → 3W 08-31 19:37